=== PATIENT | male | born 1945 | race Caucasian/White ===

== ENCOUNTER 2021-08-28 13:12 | Emergency (ER) | payer MEDICARE, OTHER ==
[2021-08-28 13:51] VITALS: RESP 18; TEMP 100.5
[2021-08-28] MEDS ORDERED: ACETAMINOPHEN TAB 500 MG TAB PO STA ×2 (13:58→15:16)
--- NOTE | 2021-08-28 14:12 | ED ---
General Adult HPI - General Chief complaint: Shortness of Breath Stated complaint: Weak/cough Time Seen by Provider: 08/28/21 13:58 Source: patient, RN notes reviewed Mode of arrival: wheelchair Limitations: no limitations - History of Present Illness Initial comments: 76-year-old male presents emergency Department with chief complaint of COVID-19. Patient states she just is suppositories at symptoms last 5 days. He has mild fever cough congestion. No chest pain or shortness of breath patient states she's not been properly vaccinated. Patient states that he does do it at home dialysis. Patient states he has no complaints of this. He states he is only here for monoclonal antibodies. - Related Data Allergies Allergy/AdvReac Type Severity Reaction Status Date / Time citric acid Allergy Rash/Hives Verified 08/28/21 13:47 Review of Systems ROS Statement: Those systems with pertinent positive or pertinent negative responses have been documented in the HPI. ROS Other: All systems not noted in ROS Statement are negative. Past Medical History Past Medical History: Heart Failure, Diabetes Mellitus, Dialysis, Hypertension, Renal Disease History of Any Multi-Drug Resistant Organisms: None Reported Past Surgical History: Coronary Bypass/CABG, Heart Catheterization Past Psychological History: No Psychological Hx Reported Smoking Status: Never smoker Past Alcohol Use History: None Reported Past Drug Use History: None Reported General Exam Limitations: no limitations General appearance: alert, in no apparent distress Head exam: Present: atraumatic, normocephalic, normal inspection Eye exam: Present: normal appearance, PERRL, EOMI. Absent: scleral icterus, conjunctival injection, periorbital swelling ENT exam: Present: normal exam, normal oropharynx, mucous membranes moist Neck exam: Present: normal inspection. Absent: tenderness, meningismus, lymphadenopathy Respiratory exam: Present: normal lung sounds bilaterally. Absent: respiratory distress, wheezes, rales, rhonchi, stridor Cardiovascular Exam: Present: regular rate, normal rhythm, normal heart sounds. Absent: systolic murmur, diastolic murmur, rubs, gallop, clicks Course Vital Signs 08/28/21 13:48 Temperature 100.5 F H Pulse Rate 70 Respiratory 18 Rate Blood Pressure 160/82 O2 Sat by Pulse 98 Oximetry Medical Decision Making - Medical Decision Making Patient's vitals are stable. Patient will receive monoclonal antibodies. Patient discharged in stable condition return parameters discussed. Disposition Clinical Impression: COVID-19 Disposition: HOME SELF-CARE Condition: Stable Instructions (If sedation given, give patient instructions): Coronavirus Disease 2019 (COVID-19) Additional Instructions: Please return to the Emergency Department if symptoms worsen or any other concerns. Is patient prescribed a controlled substance at d/c from ED?: No Referrals: None,Stated [Primary Care Provider] - 1-2 days Time of Disposition: 14:12
[2021-08-28] MEDS ORDERED: CASIRIVIMAB/IMDEVIMAB (EUA) 1,200 MG in SODIUM CHLORIDE 0.9% 100 ML IVPB ONE (14:30)
[2021-08-28] MEDS ORDERED: SODIUM CHLORIDE 0.9% 50 ML IVPB ONE (15:00)
[2021-08-28 16:25] VITALS: BP 141/81; PULSE 62
== END 2021-08-28 14:20 | disposition home or self-care (01) ==
LOC: EC 13:12
DX: U07.1 COVID-19 (principal); I11.0 Hypertensive heart disease with heart failure; I50.9 Heart failure, unspecified; E11.9 Type 2 diabetes mellitus without complications; Z95.1 Presence of aortocoronary bypass graft
CPT/HCPCS: 99283 ×2; M0243; Q0243

== ENCOUNTER 2021-09-02 19:42 | Inpatient (IN) | payer MEDICARE, OTHER ==
[2021-09-02] MEDS ORDERED: MORPHINE SULFATE 4 MG/ML SYRINGE IV STA (19:50)
[2021-09-02] MEDS ORDERED: PANTOPRAZOLE 40 MG/10 ML VIAL IVP STA (19:50)
--- NOTE | 2021-09-02 19:57 | ED ---
General Adult HPI - General Stated complaint: Abdominal Pain Time Seen by Provider: 09/02/21 19:44 Source: patient, RN notes reviewed Limitations: no limitations - History of Present Illness Initial comments: Patient is a pleasant 76-year-old male presenting to the emergency Department with complaints of abdominal discomfort. Patient is a poor historian. Patient does do peritoneal dialysis. Patient states she does have abdominal discomfort frequently however is unclear why. No nausea vomiting. No constipation or diarrhea. No fevers. Chart review reveals patient was previously in the hospital for COVID-19 and received monoclonal antibodies. - Related Data Home Medications Medication Instructions Recorded Confirmed Ascorbic Acid [Vitamin C] 500 mg PO DAILY 09/02/21 09/02/21 Aspirin EC [Ecotrin Low Dose] 81 mg PO Q72H 09/02/21 09/02/21 Calcium Acetate [Phoslo] 1,334 mg PO TID-W/MEALS 09/02/21 09/02/21 Calcium Acetate [Phoslo] 667 mg PO BID PRN 09/02/21 09/02/21 Carvedilol [Coreg] 25 mg PO BID PRN 09/02/21 09/02/21 Cholecalciferol [Vitamin D3 (25 50 mcg PO DAILY 09/02/21 09/02/21 Mcg = 1000 Iu)] Digestive Enzymes 1 tab PO TID-W/MEALS 09/02/21 09/02/21 Insulin Glargine,Hum.rec.anlog 6 - 12 unit SQ DAILY PRN 09/02/21 09/02/21 [Lantus Solostar Pen] Multivitamin-Multi Mineral Liquid 1 dose PO DAILY 09/02/21 09/02/21 [place]-3 Fatty Acids/Fish Oil [Fish 1 cap PO DAILY 09/02/21 09/02/21 Oil 1,000 mg Softgel] Ubidecarenone [Co Q-10] 100 mg PO DAILY 09/02/21 09/02/21 Allergies Allergy/AdvReac Type Severity Reaction Status Date / Time citric acid Allergy Rash/Hives Verified 09/02/21 21:39 Review of Systems ROS Statement: Those systems with pertinent positive or pertinent negative responses have been documented in the HPI. ROS Other: All systems not noted in ROS Statement are negative. Constitutional: Denies: fever Eyes: Denies: eye pain ENT: Denies: ear pain Respiratory: Denies: cough Cardiovascular: Denies: as per HPI Endocrine: Reports: fatigue Gastrointestinal: Reports: abdominal pain. Denies: nausea, vomiting, diarrhea, constipation Genitourinary: Denies: dysuria Musculoskeletal: Denies: back pain Skin: Denies: rash Neurological: Denies: weakness Past Medical History Past Medical History: Heart Failure, Diabetes Mellitus, Dialysis, Hypertension, Renal Disease History of Any Multi-Drug Resistant Organisms: None Reported Past Surgical History: Coronary Bypass/CABG, Heart Catheterization Past Psychological History: No Psychological Hx Reported Smoking Status: Never smoker Past Alcohol Use History: None Reported Past Drug Use History: None Reported General Exam General appearance: alert Head exam: Present: normocephalic Eye exam: Present: normal appearance Neck exam: Present: normal inspection Respiratory exam: Present: normal lung sounds bilaterally Cardiovascular Exam: Present: regular rate, normal rhythm Expanded Peripheral pulses: 2+: Dorsalis Pedis (R), Dorsalis Pedis (L) GI/Abdominal exam: Present: soft, tenderness (Mild diffuse tenderness). Absent: distended Extremities exam: Present: normal inspection. Absent: pedal edema, calf tenderness Back exam: Present: normal inspection Neurological exam: Present: alert Psychiatric exam: Present: flat affect Skin exam: Present: normal color Course Vital Signs 09/02/21 09/02/21 19:49 20:05 Temperature 99.1 F Pulse Rate 88 Respiratory 18 Rate Blood Pressure 245/105 - Reevaluation(s) Reevaluation #1: 09/02/21 21:33 Further history taken from the family states patient has been complaining of abdominal problems only for the past 2 and half days however has been vomiting with decreased oral intake. Patient normally has peritoneal dialysis 4 times daily and has only done it twice today. Patient was confused on how to work at earlier. Sodium returned critically low at 104. Nephrology and admitting physicians have been paged. 09/02/21 21:38 Case discussed with practitioner Giulia Wright, who will admit covered with Dr. Mancilla. Dr. Park has also been paged. 09/02/21 21:48 Case was discussed with Dr. Park who does recommend 3% sodium for 10 hours for a total of 300 mL. 09/02/21 21:56 Case was also discussed with Dr. Haro who agrees with plan and will consult. Medical Decision Making - Lab Data Result diagrams: 09/02/21 20:48 09/02/21 20:48 Lab Results 09/02/21 09/02/21 09/02/21 Range/Units 20:48 20:48 20:48 WBC 6.9 (3.8-10.6) k/uL RBC 3.93 L (4.30-5.90) m/uL Hgb 12.3 L (13.0-17.5) gm/dL Hct 32.7 L (39.0-53.0) % MCV 83.4 (80.0-100.0) fL MCH 31.4 (25.0-35.0) pg MCHC 37.7 H (31.0-37.0) g/dL RDW 11.6 (11.5-15.5) % Plt Count 240 (150-450) k/uL MPV 8.1 Neutrophils % 91 % Lymphocytes % 5 % Monocytes % 4 % Eosinophils % 0 % Basophils % 0 % Neutrophils # 6.2 (1.3-7.7) k/uL Lymphocytes # 0.3 L (1.0-4.8) k/uL Monocytes # 0.3 (0-1.0) k/uL Eosinophils # 0.0 (0-0.7) k/uL Basophils # 0.0 (0-0.2) k/uL Hyperchromasia Marked PT 9.9 (9.0-12.0) sec INR 0.9 (<1.2) APTT 23.3 (22.0-30.0) sec Sodium 104 L* (137-145) mmol/L Potassium 4.3 (3.5-5.1) mmol/L Chloride 68 L* (98-107) mmol/L Carbon Dioxide 25 (22-30) mmol/L Anion Gap 11 mmol/L BUN 75 H (9-20) mg/dL Creatinine 7.24 H* (0.66-1.25) mg/dL Est GFR (CKD-EPI)AfAm 8 (>60 ml/min/1.73 sqM) Est GFR (CKD-EPI)NonAf 7 (>60 ml/min/1.73 sqM) Glucose 156 H (74-99) mg/dL Plasma Lactic Acid Bill (0.7-2.0) mmol/L Calcium 6.9 L (8.4-10.2) mg/dL Total Bilirubin 0.9 (0.2-1.3) mg/dL AST 54 (17-59) U/L ALT 25 (4-49) U/L Alkaline Phosphatase 71 (38-126) U/L Lactate Dehydrogenase 640 H (313-618) U/L Total Protein 5.4 L (6.3-8.2) g/dL Albumin 2.9 L (3.5-5.0) g/dL Amylase 54 (30-110) U/L Lipase 85 (23-300) U/L 09/02/21 Range/Units 20:48 WBC (3.8-10.6) k/uL RBC (4.30-5.90) m/uL Hgb (13.0-17.5) gm/dL Hct (39.0-53.0) % MCV (80.0-100.0) fL MCH (25.0-35.0) pg MCHC (31.0-37.0) g/dL RDW (11.5-15.5) % Plt Count (150-450) k/uL MPV Neutrophils % % Lymphocytes % % Monocytes % % Eosinophils % % Basophils % % Neutrophils # (1.3-7.7) k/uL Lymphocytes # (1.0-4.8) k/uL Monocytes # (0-1.0) k/uL Eosinophils # (0-0.7) k/uL Basophils # (0-0.2) k/uL Hyperchromasia PT (9.0-12.0) sec INR (<1.2) APTT (22.0-30.0) sec Sodium (137-145) mmol/L Potassium (3.5-5.1) mmol/L Chloride (98-107) mmol/L Carbon Dioxide (22-30) mmol/L Anion Gap mmol/L BUN (9-20) mg/dL Creatinine (0.66-1.25) mg/dL Est GFR (CKD-EPI)AfAm (>60 ml/min/1.73 sqM) Est GFR (CKD-EPI)NonAf (>60 ml/min/1.73 sqM) Glucose (74-99) mg/dL Plasma Lactic Acid Bill 1.0 (0.7-2.0) mmol/L Calcium (8.4-10.2) mg/dL Total Bilirubin (0.2-1.3) mg/dL AST (17-59) U/L ALT (4-49) U/L Alkaline Phosphatase (38-126) U/L Lactate Dehydrogenase (313-618) U/L Total Protein (6.3-8.2) g/dL Albumin (3.5-5.0) g/dL Amylase (30-110) U/L Lipase (23-300) U/L Critical Care Time Critical Care Time: Yes Total Critical Care Time: 33 Disposition Clinical Impression: Abdominal pain, Hyponatremia, ESRD on peritoneal dialysis Disposition: ADMITTED IP TO THIS [facility] Condition: Serious Is patient prescribed a controlled substance at d/c from ED?: No Referrals: None,Stated [Primary Care Provider] - 1-2 days Decision Time: 21:35
[2021-09-02 21:03] LABS: Basophils % (A) 0 %; Eosinophils % (A) 0 %; HCT 32.7 % (39.0-53.0); HGB 12.3 gm/dL (13.0-17.5); Hyperchromasia Marked; Lymphocytes # (A) 0.3 k/uL (1.0-4.8); Lymphocytes % (A) 5 %; MCH 31.4 pg (25.0-35.0); MCHC 37.7 g/dL (31.0-37.0); MCV 83.4 fL (80.0-100.0); Mean Platelet Volume 8.1; Monocytes # (A) 0.3 k/uL (0-1.0); Monocytes % (A) 4 %; Neutrophils # (A) 6.2 k/uL (1.3-7.7); Neutrophils % (A) 91 %; Platelet Count 240 k/uL (150-450); RBC 3.93 m/uL (4.30-5.90); RDW 11.6 % (11.5-15.5); WBC 6.9 k/uL (3.8-10.6)
[2021-09-02 21:12] LABS: INR 0.9 (<1.2); Partial Thromboplastin Time 23.3 sec (22.0-30.0); Prothrombin Time 9.9 sec (9.0-12.0)
[2021-09-02 21:23] LABS: Albumin 2.9 g/dL (3.5-5.0); Calcium 6.9 mg/dL (8.4-10.2); Potassium 4.3 mmol/L (3.5-5.1); Total Bilirubin 0.9 mg/dL (0.2-1.3); Total Protein 5.4 g/dL (6.3-8.2)
[2021-09-02] MEDS ORDERED: NALOXONE 0.4 MG/ML 1 ML VIAL IV PRN (21:38)
[2021-09-02] MEDS ORDERED: SODIUM CHLORIDE 3% IV SCH (22:00)
[2021-09-02] MEDS ORDERED: [UNRECOGNIZED DRUG - OTHER] IV SCH (22:00)
[2021-09-02] MEDS ORDERED: LORazepam 2 MG/ML INJ IV STA (23:20)
[2021-09-03 00:20] LABS: Appearance,Urine Clear (Clear); Bacteria,Urine Rare /hpf; Bilirubin,Urine Negative (Negative); Blood,Urine Trace (Negative); Color,Urine Yellow; Glucose,Urine (UA) 2+ (Negative); Ketones,Urine Negative (Negative); Leukocyte Esterase,Urine Negative (Negative); Nitrite,Urine Negative (Negative); PH, Urine 6.5 (5.0-8.0); Protein,Urine 2+ (Negative); RBC,Urine 1 /hpf (0-5); Specific Gravity,Urine 1.013 (1.001-1.035); Urobilinogen,Urine <2.0 mg/dL (<2.0); WBC,Urine 1 /hpf (0-5)
[2021-09-03 00:54] LABS: Glucose,Whole Blood 171 mg/dL (75-99)
--- NOTE | 2021-09-03 01:02 | CT ---
EXAMINATION TYPE: CT abdomen pelvis wo con DATE OF EXAM: 09/03/2021 COMPARISON: None HISTORY: ams CT DLP: 714 mGycm Automated exposure control for dose reduction was used. Images obtained from the diaphragm to the floor the pelvis without contrast. There are F there is zahraa e patchy nodular and interstitial infiltrate at the lung bases. There is no significant pleural fluid . Heart is top normal in size. There is no pericardial effusion. Liver is intact. Gallbladder is intact. Spleen is intact. Stomach has normal size. The bile ducts are not dilated. There is mild abdominal fluid in the paracolic gutter on the right side and around the liver. There is no adrenal mass. Kidneys have normal size. There is extensive vascular calcification. There is 1 cm calculus at the right renal pelvis. There is no hydronephrosis. The ureters are not dilated. Abdominal aorta is atheromatous. There is peritoneal catheter in the pelvis apparently from dialysis. Appendix is posterior and appears normal. There is no evidence of a bowel obstruction. There is no mesenteric edema. There are multiple sigmoid diverticula. I see no sign of diverticulitis. The lumbar vertebra have normal alignment. Posterior elements are intact. There is minor spurring in the lumbar spine. IMPRESSION: Sigmoid diverticulosis without diverticulitis. Atherosclerotic vascular disease. Nonobstructing large calculus right renal pelvis. Patchy nodular and interstitial infiltrate in the posterior lung bases.
[2021-09-03] MEDS: hydrALAZINE HCL 20 MG/ML 1 ML VIAL IVP PRN ×6 (01:49→23:22)
[2021-09-03] MEDS: HYDROmorphone 1 MG/ML 1 ML SYRINGE IVP PRN ×4 (01:49→15:55)
[2021-09-03] MEDS: INSULIN ASPART (NovoLOG) 100 UNIT/ML VIAL SQ SCH ×4 (02:00→19:03)
[2021-09-03 05:15] LABS: Basophils % (A) 0 %; Eosinophils % (A) 0 %; HCT 32.6 % (39.0-53.0); HGB 12.3 gm/dL (13.0-17.5); Hyperchromasia Marked; Lymphocytes # (A) 0.4 k/uL (1.0-4.8); Lymphocytes % (A) 3 %; MCH 31.7 pg (25.0-35.0); MCHC 37.8 g/dL (31.0-37.0); MCV 83.9 fL (80.0-100.0); Mean Platelet Volume 7.9; Monocytes # (A) 0.6 k/uL (0-1.0); Monocytes % (A) 4 %; Neutrophils # (A) 12.2 k/uL (1.3-7.7); Neutrophils % (A) 92 %; Platelet Count 257 k/uL (150-450); RBC 3.89 m/uL (4.30-5.90); RDW 11.6 % (11.5-15.5); WBC 13.3 k/uL (3.8-10.6)
[2021-09-03 05:26] LABS: Albumin 2.7 g/dL (3.5-5.0); Calcium 6.9 mg/dL (8.4-10.2); Magnesium 1.8 mg/dL (1.6-2.3); Phosphorus 6.4 mg/dL (2.5-4.5); Potassium 3.9 mmol/L (3.5-5.1); Total Bilirubin 0.9 mg/dL (0.2-1.3); Total Protein 5.4 g/dL (6.3-8.2)
[2021-09-03 06:20] LABS: Glucose,Whole Blood 73 mg/dL (75-99)
[2021-09-03] MEDS ORDERED: CALCIUM ACETATE 667 MG TAB PO PRN (07:43)
[2021-09-03] MEDS ORDERED: FAMOTIDINE 20 MG/2 ML VIAL IV SCH (09:00)
[2021-09-03] MEDS: PANTOPRAZOLE 40 MG/10 ML VIAL IV SCH (09:00)
[2021-09-03] MEDS: CHOLECALCIFEROL 25 MCG (1000 IU) TABLET PO SCH ×2 (09:05→09:14)
[2021-09-03] MEDS: HEPARIN SODIUM,PORCINE/PF 5,000 UNIT/0.5 ML SYRINGE SQ SCH ×2 (09:06→20:21)
[2021-09-03] MEDS: ASCORBIC ACID 500 MG TAB PO SCH ×2 (09:06→09:14)
--- NOTE | 2021-09-03 11:37 | P.HPIM ---
History of Present Illness This is a pleasant 76 years old male with past medical history of Heart Failure, Diabetes Mellitus, renal disease on peritoneal Dialysis, Hypertension, history of Coronary Bypass/CABG, Patient presents because of abdominal pain per emergency room Note however patient found to have be confused with hypernatremia His sodium on admission was 104, earlier this morning was 108 and ended in weight respectively. patient currently remains in the ICU confused, does not follow commands, he is also on restraints. He denies any chest pain or abdominal pain. His abdomen looks soft and there is dialysis to running out of his left lower quadrant of abdomen, not connected to anything. His abdomen is soft with no tenderness or guarding. No rebound tenderness he moves all extremities equally. Patient is poor historian On admission he is afebrile, his breathing rate around 11, blood pressure 174/96 and he is saturating 95% on room air. WBC 6.9 and 13.3. Rest of CBC is unremarkable. Sodium on admission was low at 104, currently is 108. Unknown baseline. Creatinine elevated 7.3. Troponin is elevated at 0.05 Urine analysis is showing 2+ protein, 2+ glucose. [place] v. is detected CT of the abdomen and pelvis with no contrast: Sigmoid diverticulosis without diverticulitis. Atherosclerotic vascular disease. None obstructing large calculus right renal pelvis In the emergency room patient received Protonix, pain medication Nephrology and ice team were consulted already Review of Systems n/a patient confused and could not give information Past Medical History Past Medical History: Heart Failure, Diabetes Mellitus, Dialysis, Hypertension, Renal Disease History of Any Multi-Drug Resistant Organisms: None Reported Past Surgical History: Coronary Bypass/CABG, Heart Catheterization Past Psychological History: No Psychological Hx Reported Smoking Status: Never smoker Past Alcohol Use History: None Reported Past Drug Use History: None Reported Medications and Allergies Home Medications Medication Instructions Recorded Confirmed Type Ascorbic Acid [Vitamin C] 500 mg PO DAILY 09/02/21 09/02/21 History Aspirin EC [Ecotrin Low Dose] 81 mg PO Q72H 09/02/21 09/02/21 History Calcium Acetate [Phoslo] 1,334 mg PO TID-W/MEALS 09/02/21 09/02/21 History Calcium Acetate [Phoslo] 667 mg PO BID PRN 09/02/21 09/02/21 History Carvedilol [Coreg] 25 mg PO BID PRN 09/02/21 09/02/21 History Cholecalciferol [Vitamin D3 (25 50 mcg PO DAILY 09/02/21 09/02/21 History Mcg = 1000 Iu)] Digestive Enzymes 1 tab PO TID-W/MEALS 09/02/21 09/02/21 History Insulin Glargine,Hum.rec.anlog 6 - 12 unit SQ DAILY PRN 09/02/21 09/02/21 History [Lantus Solostar Pen] Multivitamin-Multi Mineral Liquid 1 dose PO DAILY 09/02/21 09/02/21 History [place]-3 Fatty Acids/Fish Oil [Fish 1 cap PO DAILY 09/02/21 09/02/21 History Oil 1,000 mg Softgel] Ubidecarenone [Co Q-10] 100 mg PO DAILY 09/02/21 09/02/21 History Allergies Allergy/AdvReac Type Severity Reaction Status Date / Time citric acid Allergy Rash/Hives Verified 09/02/21 21:39 Physical Exam Vitals: Vital Signs Temp Pulse Resp BP Pulse Ox 09/03/21 05:00 78 11 L 174/96 97 09/03/21 04:00 79 14 163/91 95 09/03/21 03:00 86 19 161/84 93 L 09/03/21 02:00 86 9 L 175/83 96 09/03/21 01:00 90 28 H 201/107 95 09/02/21 23:57 92 18 233/123 95 09/02/21 20:05 245/105 09/02/21 19:49 99.1 F 88 18 Intake and Output 09/02/21 09/03/21 09/03/21 22:59 06:59 14:59 Intake Total 80 Output Total 150 Balance -70 Intake: IV 80 Sodium Chloride 3%( 80 Hypertonic) 300 ml @ 20 mls/hr IV .Q15H [facility] Rx#: [id number] Output: Urine 150 Other: Voiding Method Indwelling Catheter Weight 63.596 kg 71 kg -GENERAL: The patient is alert and oriented x0, not in any acute distress. Well developed, well nourished. HEENT: Pupils are round and equally reacting to light. EOMI. No scleral icterus. No conjunctival pallor. Normocephalic, atraumatic. No pharyngeal erythema. No thyromegaly. CARDIOVASCULAR: S1 and S2 present. No murmurs, rubs, or gallops. PULMONARY: Chest is clear to auscultation, no wheezing or crackles. ABDOMEN: Soft, nontender, nondistended, normoactive bowel sounds. No palpable organomegaly. MUSCULOSKELETAL: No joint swelling or deformity. EXTREMITIES: No cyanosis, clubbing, or pedal edema. NEUROLOGICAL: Gross neurological examination did not reveal any focal deficits. SKIN: No rashes. No petechiae Results CBC & Chem 7: 09/03/21 04:30 09/03/21 08:12 Labs: Abnormal Lab Results - Last 24 Hours (Table) 09/02/21 09/02/21 09/02/21 Range/Units 20:48 20:48 20:48 WBC (3.8-10.6) k/uL RBC 3.93 L (4.30-5.90) m/uL Hgb 12.3 L (13.0-17.5) gm/dL Hct 32.7 L (39.0-53.0) % MCHC 37.7 H (31.0-37.0) g/dL Neutrophils # (1.3-7.7) k/uL Lymphocytes # 0.3 L (1.0-4.8) k/uL Sodium 104 L* (137-145) mmol/L Chloride 68 L* (98-107) mmol/L BUN 75 H (9-20) mg/dL Creatinine 7.24 H* (0.66-1.25) mg/dL Glucose 156 H (74-99) mg/dL POC Glucose (mg/dL) (75-99) mg/dL Calcium 6.9 L (8.4-10.2) mg/dL Phosphorus (2.5-4.5) mg/dL Lactate Dehydrogenase 640 H (313-618) U/L Troponin I 0.053 H* (0.000-0.034) ng/mL Total Protein 5.4 L (6.3-8.2) g/dL Albumin 2.9 L (3.5-5.0) g/dL Urine Protein (Negative) Urine Glucose (UA) (Negative) Urine Blood (Negative) Urine Bacteria (None) /hpf Coronavirus (PCR) (Not Detectd) 09/02/21 09/02/21 09/02/21 Range/Units 23:50 23:52 23:56 WBC (3.8-10.6) k/uL RBC (4.30-5.90) m/uL Hgb (13.0-17.5) gm/dL Hct (39.0-53.0) % MCHC (31.0-37.0) g/dL Neutrophils # (1.3-7.7) k/uL Lymphocytes # (1.0-4.8) k/uL Sodium 105 L* (137-145) mmol/L Chloride (98-107) mmol/L BUN (9-20) mg/dL Creatinine (0.66-1.25) mg/dL Glucose (74-99) mg/dL POC Glucose (mg/dL) (75-99) mg/dL Calcium (8.4-10.2) mg/dL Phosphorus (2.5-4.5) mg/dL Lactate Dehydrogenase (313-618) U/L Troponin I (0.000-0.034) ng/mL Total Protein (6.3-8.2) g/dL Albumin (3.5-5.0) g/dL Urine Protein 2+ H (Negative) Urine Glucose (UA) 2+ H (Negative) Urine Blood Trace H (Negative) Urine Bacteria Rare H (None) /hpf Coronavirus (PCR) Detected A (Not Detectd) 09/03/21 09/03/21 09/03/21 Range/Units 00:52 04:30 04:30 WBC 13.3 H (3.8-10.6) k/uL RBC 3.89 L (4.30-5.90) m/uL Hgb 12.3 L (13.0-17.5) gm/dL Hct 32.6 L (39.0-53.0) % MCHC 37.8 H (31.0-37.0) g/dL Neutrophils # 12.2 H (1.3-7.7) k/uL Lymphocytes # 0.4 L (1.0-4.8) k/uL Sodium 108 L* (137-145) mmol/L Chloride 73 L* (98-107) mmol/L BUN 79 H (9-20) mg/dL Creatinine 7.34 H* (0.66-1.25) mg/dL Glucose 68 L (74-99) mg/dL POC Glucose (mg/dL) 171 H (75-99) mg/dL Calcium 6.9 L (8.4-10.2) mg/dL Phosphorus 6.4 H (2.5-4.5) mg/dL Lactate Dehydrogenase (313-618) U/L Troponin I (0.000-0.034) ng/mL Total Protein 5.4 L (6.3-8.2) g/dL Albumin 2.7 L (3.5-5.0) g/dL Urine Protein (Negative) Urine Glucose (UA) (Negative) Urine Blood (Negative) Urine Bacteria (None) /hpf Coronavirus (PCR) (Not Detectd) 09/03/21 Range/Units 06:18 WBC (3.8-10.6) k/uL RBC (4.30-5.90) m/uL Hgb (13.0-17.5) gm/dL Hct (39.0-53.0) % MCHC (31.0-37.0) g/dL Neutrophils # (1.3-7.7) k/uL Lymphocytes # (1.0-4.8) k/uL Sodium (137-145) mmol/L Chloride (98-107) mmol/L BUN (9-20) mg/dL Creatinine (0.66-1.25) mg/dL Glucose (74-99) mg/dL POC Glucose (mg/dL) 73 L (75-99) mg/dL Calcium (8.4-10.2) mg/dL Phosphorus (2.5-4.5) mg/dL Lactate Dehydrogenase (313-618) U/L Troponin I (0.000-0.034) ng/mL Total Protein (6.3-8.2) g/dL Albumin (3.5-5.0) g/dL Urine Protein (Negative) Urine Glucose (UA) (Negative) Urine Blood (Negative) Urine Bacteria (None) /hpf Coronavirus (PCR) (Not Detectd) Assessment and Plan Assessment: Acute severe hyponatremia Covid infection with no hypoxia Diabetes mellitus Chronic heart failure Hypertension Elevated troponin History of coronary artery disease status post CABG History of renal disease on dialysis Right kidney stone Plan: This is a pleasant 76 years old male who presents with hypernatremia Keep monitor sodium closely Continue with peritoneal dialysis. Nephrology team recommendation Critical team consult Check echocardiogram I agree with neurology consult already placed Labs and medication were reviewed.. Continue same treatment. Continue with sy mptomatic treatment. Resume home medication. Monitor lytes and vitals. DVT and GI prophylaxis. Further recommendations depends on the clinical course of the patient DVT prophylaxis: Subcutaneous heparin GI Prophylaxis: Ppi Prognosis is guarded
--- NOTE | 2021-09-03 12:34 | P.CNPUL ---
History of Present Illness Consult date: 09/03/21 Requesting physician: Bruce E Sheet Reason for consult: other (Severe hyponatremia) Chief complaint: Abdominal pain History of present illness: This is a 76-year-old white male with history of multiple medical problems including end-stage renal disease, on peritoneal dialysis, known history of diabetes, congestive heart failure, coronary artery disease and previous CABG, patient presented to the ER yesterday with 1 day history of abdominal pain. Patient was also noted to be quite confused, workup included a CT of the abdomen and pelvis which came back negative. However his labs were quite abnormal, and his sodium was noted to be 104. The patient himself is a very poor historian, could not get any information from the patient seems to be extremely confused. Patient was also noted to have abnormal renal profile with a BUN of 79 creatinine of 7.34, and he had positive PCR for COVID-19 infection. No chest x- ray was done in the ER, hence short the after I evaluated the patient, chest x- ray was ordered. The meantime the patient is on room air, his O2 sats was 92- 97% on room air. Is afebrile, blood pressure is elevated at 149/96. Upon admission and when I was notified about this patient last night, his PCR for COVID-19 was pending. And I recommended starting the patient on slow infusion of 3% saline and slow correction of his hyponatremia. This morning repeat sodium is 108. Nephrology is yet to see the patient today regarding his chronic renal failure/peritoneal dialysis, and regarding his profound and severe hyponatremia. Chest x-ray showed scattered bilateral infiltrates peripherally and at the bases mostly. Clinically, the patient looks euvolemic, no history to suggest nausea vomiting diarrhea. Review of Systems ROS unobtainable: due to mental status Past Medical History Past Medical History: Heart Failure, Diabetes Mellitus, Dialysis, Hypertension, Renal Disease History of Any Multi-Drug Resistant Organisms: None Reported Past Surgical History: Coronary Bypass/CABG, Heart Catheterization Past Psychological History: No Psychological Hx Reported Smoking Status: Never smoker Past Alcohol Use History: None Reported Past Drug Use History: None Reported Medications and Allergies Home Medications Medication Instructions Recorded Confirmed Type Ascorbic Acid [Vitamin C] 500 mg PO DAILY 09/02/21 09/02/21 History Aspirin EC [Ecotrin Low Dose] 81 mg PO Q72H 09/02/21 09/02/21 History Calcium Acetate [Phoslo] 1,334 mg PO TID-W/MEALS 09/02/21 09/02/21 History Calcium Acetate [Phoslo] 667 mg PO BID PRN 09/02/21 09/02/21 History Carvedilol [Coreg] 25 mg PO BID PRN 09/02/21 09/02/21 History Cholecalciferol [Vitamin D3 (25 50 mcg PO DAILY 09/02/21 09/02/21 History Mcg = 1000 Iu)] Digestive Enzymes 1 tab PO TID-W/MEALS 09/02/21 09/02/21 History Insulin Glargine,Hum.rec.anlog 6 - 12 unit SQ DAILY PRN 09/02/21 09/02/21 History [Lantus Solostar Pen] Multivitamin-Multi Mineral Liquid 1 dose PO DAILY 09/02/21 09/02/21 History [place]-3 Fatty Acids/Fish Oil [Fish 1 cap PO DAILY 09/02/21 09/02/21 History Oil 1,000 mg Softgel] Ubidecarenone [Co Q-10] 100 mg PO DAILY 09/02/21 09/02/21 History Allergies Allergy/AdvReac Type Severity Reaction Status Date / Time citric acid Allergy Rash/Hives Verified 09/02/21 21:39 Physical Exam Vitals: Vital Signs Temp Pulse Resp BP Pulse Ox 09/03/21 09:00 79 12 171/88 91 L 09/03/21 08:00 98.2 F 78 12 154/71 94 L 09/03/21 07:00 78 13 148/70 89 L 09/03/21 06:00 78 12 175/154 98 09/03/21 05:00 78 11 L 174/96 97 09/03/21 04:00 79 14 163/91 95 09/03/21 03:00 86 19 161/84 93 L 09/03/21 02:00 86 9 L 175/83 96 09/03/21 01:00 90 28 H 201/107 95 09/02/21 23:57 92 18 233/123 95 09/02/21 20:05 245/105 09/02/21 19:49 99.1 F 88 18 Intake and Output 09/02/21 09/03/21 09/03/21 22:59 06:59 14:59 Intake Total 120 60 Output Total 190 35 Balance -70 25 Intake: IV 120 60 Sodium Chloride 3%( 120 60 Hypertonic) 300 ml @ 20 mls/hr IV .Q15H [facility] Rx#: [id number] Output: Urine 190 35 Other: Voiding Method Indwelling Catheter Indwelling Catheter Weight 63.596 kg 71 kg 71 kg Physical Exam: Revealed 76-year-old white male, confused, on room air, in no distress. HEENT:[Neck is supple.] [No neck masses.] [No thyromegaly.] [No JVD.] Chest: Symmetrical chest expansion, diminished breath sounds at the bases no crackles or rhonchi or wheezes. Cardiac Exam: [Normal S1 and S2, no S3 gallop, no murmur.] Abdomen: [Soft, nontender, no megaly, no rebound, no guarding, normal bowel sounds.] Peritoneal catheter is noted in the mid abdomen. Extremities: No clubbing edema or cyanosis. Neurologic: Patient is confused, does not seem to follow instructions, and he seems quite encephalopathic. Skin: No rashes. Results - Laboratory Findings CBC and BMP: 09/03/21 04:30 09/03/21 08:12 PT/INR, D-dimer PT 9.9 sec (9.0-12.0) 09/02/21 20:48 INR 0.9 (<1.2) 09/02/21 20:48 Abnormal lab findings: Abnormal Labs 09/02/21 09/02/21 09/02/21 20:48 20:48 20:48 WBC RBC 3.93 L Hgb 12.3 L Hct 32.7 L MCHC 37.7 H Neutrophils # Lymphocytes # 0.3 L Sodium 104 L* Chloride 68 L* BUN 75 H Creatinine 7.24 H* Glucose 156 H POC Glucose (mg/dL) Calcium 6.9 L Phosphorus Lactate Dehydrogenase 640 H Troponin I 0.053 H* Total Protein 5.4 L Albumin 2.9 L Urine Protein Urine Glucose (UA) Urine Blood Urine Bacteria Coronavirus (PCR) 09/02/21 09/02/21 09/02/21 23:50 23:52 23:56 WBC RBC Hgb Hct MCHC Neutrophils # Lymphocytes # Sodium 105 L* Chloride BUN Creatinine Glucose POC Glucose (mg/dL) Calcium Phosphorus Lactate Dehydrogenase Troponin I Total Protein Albumin Urine Protein 2+ H Urine Glucose (UA) 2+ H Urine Blood Trace H Urine Bacteria Rare H Coronavirus (PCR) Detected A 09/03/21 09/03/21 09/03/21 00:52 04:30 04:30 WBC 13.3 H RBC 3.89 L Hgb 12.3 L Hct 32.6 L MCHC 37.8 H Neutrophils # 12.2 H Lymphocytes # 0.4 L Sodium 108 L* Chloride 73 L* BUN 79 H Creatinine 7.34 H* Glucose 68 L POC Glucose (mg/dL) 171 H Calcium 6.9 L Phosphorus 6.4 H Lactate Dehydrogenase Troponin I Total Protein 5.4 L Albumin 2.7 L Urine Protein Urine Glucose (UA) Urine Blood Urine Bacteria Coronavirus (PCR) 09/03/21 09/03/21 06:18 08:12 WBC RBC Hgb Hct MCHC Neutrophils # Lymphocytes # Sodium 108 L* Chloride BUN Creatinine Glucose POC Glucose (mg/dL) 73 L Calcium Phosphorus Lactate Dehydrogenase Troponin I Total Protein Albumin Urine Protein Urine Glucose (UA) Urine Blood Urine Bacteria Coronavirus (PCR) - Diagnostic Findings Chest x-ray: image reviewed (As noted in HPI, minimal scattered infiltrates noted bilaterally.) Assessment and Plan Assessment: Impression: Severe hyponatremia, exact etiology is not clear, but seems to be associated wit h his COVID-19 infection/pneumonia and associated with his renal failure and peritoneal dialysis. Could be SIADH related. Acute metabolic encephalopathy secondary to hyponatremia Acute COVID-19 pneumonia but no significant hypoxia noted. Chronic renal failure, on peritoneal dialysis. History of coronary artery disease and previous CABG. Type 2 diabetes. Benign essential hypertension. Recommendation: Continue slow correction of his sodium. COVID-19 cocktail. Patient is not a candidate for remdesivir, not a candidate for baricitinib Nephrology to see on consultation. Neurology to see for his metabolic encephalopathy. We will continue to follow and monitor in the ICU. Prognosis is extremely poor and guarded. Time with Patient: Greater than 30
--- NOTE | 2021-09-03 12:50 | ECHOF ---
Referral Reason:Rule out heart disease MEASUREMENTS -------- HEIGHT: 167.6 cm WEIGHT: 70.8 kg BP: 148/70 RVIDd: 3.7 cm (< 3.3) IVSd: 1.8 cm (0.6 - 1.1) LVIDd: 3.2 cm (3.9 - 5.3) LVPWd: 1.8 cm (0.6 - 1.1) IVSs: 1.9 cm LVIDs: 2.0 cm LVPWs: 2.1 cm LAESV Index (A-L): 34.76 ml/m Ao Diam: 3.5 cm (2.0 - 3.7) AV Cusp: 1.1 cm (1.5 - 2.6) MV E Chris: 0.85 m/s MV DecT: 271 ms MV A Chris: 1.27 m/s MV E/A Ratio: 0.67 AV maxP.13 mmHg AV meanP.90 mmHg AR PHT: 548 ms RAP: 5.00 mmHg RVSP: 34.19 mmHg FINDINGS -------- Sinus rhythm. This was a technically adequate study. The left ventricular size is normal. There is severe concentric left ventricular hypertrophy. Ove rall left ventricular systolic function is normal with, an EF between 55 - 60 %. The right ventricle is mildly enlarged. LA is moderately dilated 34-39 ml/m2 The right atrial size is normal. Interatrial and interventricular septum intact. There is moderate to severe aortic valve sclerosis. Trace to mild aortic regurgitation. There is moderate aortic stenosis present. The maximum velocity across the aortic valve is 2.83m/s. Peak/m david gradient across the Aortic Valve is 32.13mmHg / 17.90mmHg. Moderate mitral annular calcification present. Mild mitral regurgitation is present. Mild mitral stenosis , with a MVA of 2.8cm (by PHT) Mild tricuspid regurgitation present. There is no evidence of pulmonary hypertension. The right v entricular systolic pressure, as measured by Doppler, is 34.19mmHg. There is no pulmonic regurgitation present. The aortic root size is normal. IVC Not well visulized. There is no pericardial effusion. CONCLUSIONS -------- 1. The left ventricular size is normal. 2. There is severe concentric left ventricular hypertrophy. 3. Overall left ventricular systolic function is normal with, an EF between 55 - 60 %. 4. The right ventricle is mildly enlarged. 5. LA is moderately dilated 34-39 ml/m2 6. There is moderate to severe aortic valve sclerosis. 7. Trace to mild aortic regurgitation. 8. There is moderate aortic stenosis present. 9. The maximum velocity across the aortic valve is 2.83m/s. 10. Peak/mean gradient across the Aortic Valve is 32.13mmHg / 17.90mmHg. 11. Moderate mitral annular calcification present. 12. Mild mitral regurgitation is present. 13. Mild mitral stenosis. 14. , with a MVA of 2.8cm (by PHT) 15. Mild tricuspid regurgitation present. LARD BLEACHER: Flory Mcconnell RDCS
--- NOTE | 2021-09-03 12:52 | XR ---
EXAMINATION TYPE: XR chest 1V DATE OF EXAM: 09/03/2021 CLINICAL HISTORY: COVID. TECHNIQUE: Single AP portable frontal upright view of the chest is obtained. COMPARISON: None FINDINGS: Overlying sternal wires and mediastinal clips. Mild cardiomegaly with atherosclerotic thora cic aorta. Low lung volumes with bilateral multifocal opacities greatest in the lower lungs and perip chayo left lung with some right upper lung involvement. No pleural effusion or pneumothorax. The osse ous structures are intact. IMPRESSION: Low lung volumes and mild cardiomegaly with bilateral multifocal opacities consistent wit h known covid-19 infection.
[2021-09-03] MEDS: DIALYSIS (PERIT 1.5%) 2,000 ML 30 G/2,000 ML BAG INTRAPERIT SCH ×3 (12:56→23:56)
[2021-09-03 13:13] LABS: Glucose,Whole Blood 85 mg/dL (75-99)
[2021-09-03] MEDS: CALCIUM ACETATE 667 MG TAB PO SCH ×2 (13:39→18:03)
[2021-09-03] MEDS: DEXMEDETOMIDINE/0.9% NACL(PMX) 400 MCG in EMPTY BAG 1 BAG IV SCH ×2 (13:39→21:27)
[2021-09-03] MEDS: DEXAMETHASONE SOD PHOSPHATE 10 MG/ML 1 ML VIAL IVP SCH (13:49)
[2021-09-03] MEDS: SODIUM CHLORIDE 3%(HYPERTONIC) 500 ML IV SCH (16:40)
--- NOTE | 2021-09-03 18:19 | P.CNNES ---
History of Present Illness Consult date: 09/03/21 Requesting physician: Katie Park Reason for Consult: Altered mental status History of Present Illness: Patient is a 76-year-old male came to the hospital yesterday by ambulance at 7:42 PM. Patient was seen in the ICU bed #253. Patient has significant altered mental status, therefore not able to provide any history. As per EMS flow sheet, when they arrived, found patient sitting on the couch, complaining of abdominal pain. Family was present. Family has mentioned that he has not been acting right. Patient's baseline mental status is alert and oriented 4. Patient was able to answer some questions appropriately. He was oriented 2. The patient is 4 days post quarantine for Covid 19. Family mentioned that he has been vomiting and complaining of abdominal pain for the past 3 days. He has not been able to drink or eat much. Patient is a dialysis patient, receives dialysis 4 times a day but has only received 2 times. The patient denies any chest pain or shortness of breath. He was benching "I just do not feel good". Patient's vitals at the scene was blood pressure 222/147, pulse rate 90, respir ations 16 saturation 99%. Blood sugar 171. Vital signs on arrival blood pressure 145/105 which came down to 233/123 and then 201/107. Patient's blood test shows normal WBC, hemoglobin 12.3, platelet 240. PT/PTT normal, sodium 104, potassium 4.3, BUN 75, creatinine 7.24. Hepatic panel is normal. UA negative. [place] virus PCR positive. CT of the abdomen and pelvis showed sigmoid diverticulosis without diverticulitis. Atherosclerotic vascular disease. Non-obstructing large calculus right renal pelvis. Patchy nodular and interstitial infiltrate in the posterior lung bases. 2-D echo revealed normal left ventricular size. Severe concentric LVH. EF is between 55-60%. Left atrium is moderately dilated. Moderate to severe aortic valve sclerosis. Moderate aortic stenosis and trace to mild aortic regurgitation. Mild mitral stenosis. Chest x-ray showed low lung volumes and mild cardiomegaly with bilateral multifocal opacities consistent with known Covid-19 infection. Per nursing report, no seizures have been reported. He was diagnosed with Covid-19 on 08/13/2021. He gets peritoneal dialysis. He recently came to the ER and was given monoclonal antibodies for coronavirus. Patient has received Dilaudid 2 doses recently, as he has been thrashing and very restless otherwise. But now he is sedated from medication. Review of Systems ROS unobtainable: due to mental status Past Medical History Past Medical History: Heart Failure, Diabetes Mellitus, Dialysis, Hypertension, Renal Disease History of Any Multi-Drug Resistant Organisms: None Reported Past Surgical History: Coronary Bypass/CABG, Heart Catheterization Past Psychological History: No Psychological Hx Reported Smoking Status: Never smoker Past Alcohol Use History: None Reported Past Drug Use History: None Reported Medications and Allergies Home Medications Medication Instructions Recorded Confirmed Type Ascorbic Acid [Vitamin C] 500 mg PO DAILY 09/02/21 09/02/21 History Aspirin EC [Ecotrin Low Dose] 81 mg PO Q72H 09/02/21 09/02/21 History Calcium Acetate [Phoslo] 1,334 mg PO TID-W/MEALS 09/02/21 09/02/21 History Calcium Acetate [Phoslo] 667 mg PO BID PRN 09/02/21 09/02/21 History Carvedilol [Coreg] 25 mg PO BID PRN 09/02/21 09/02/21 History Cholecalciferol [Vitamin D3 (25 50 mcg PO DAILY 09/02/21 09/02/21 History Mcg = 1000 Iu)] Digestive Enzymes 1 tab PO TID-W/MEALS 09/02/21 09/02/21 History Insulin Glargine,Hum.rec.anlog 6 - 12 unit SQ DAILY PRN 09/02/21 09/02/21 History [Lantus Solostar Pen] Multivitamin-Multi Mineral Liquid 1 dose PO DAILY 09/02/21 09/02/21 History [place]-3 Fatty Acids/Fish Oil [Fish 1 cap PO DAILY 09/02/21 09/02/21 History Oil 1,000 mg Softgel] Ubidecarenone [Co Q-10] 100 mg PO DAILY 09/02/21 09/02/21 History Allergies Allergy/AdvReac Type Severity Reaction Status Date / Time citric acid Allergy Rash/Hives Verified 09/02/21 21:39 Physical Examination - Vital Signs Vital Signs: Vital Signs Temp Pulse Resp BP Pulse Ox 09/03/21 15:00 84 18 133/79 94 L 09/03/21 14:00 80 12 180/84 95 09/03/21 13:29 97.8 F 70 18 180/84 91 L 09/03/21 13:00 77 13 183/98 93 L 09/03/21 12:00 98.2 F 78 13 170/80 92 L 09/03/21 11:00 77 13 149/96 92 L 09/03/21 10:00 80 20 187/96 97 09/03/21 09:00 79 12 171/88 91 L 09/03/21 08:00 98.2 F 78 12 154/71 94 L 09/03/21 07:00 78 13 148/70 89 L 09/03/21 06:00 78 12 175/154 98 09/03/21 05:00 78 11 L 174/96 97 09/03/21 04:00 79 14 163/91 95 09/03/21 03:00 86 19 161/84 93 L 09/03/21 02:00 86 9 L 175/83 96 09/03/21 01:00 90 28 H 201/107 95 09/02/21 23:57 92 18 233/123 95 09/02/21 20:05 245/105 09/02/21 19:49 99.1 F 88 18 Intake and Output 09/03/21 09/03/21 09/03/21 06:59 14:59 22:59 Intake Total 120 165 25 Output Total 190 85 25 Balance -70 80 0 Intake: IV 120 140 25 Sodium Chloride 3%( 120 140 25 Hypertonic) 300 ml @ 20 mls/hr IV .Q15H [facility] Rx#: [id number] Intake, IV Titration 25 Amount Sodium Chloride 3%( 25 Hypertonic) 500 ml @ 25 mls/hr IV .Q20H [facility] Rx#: [id number] Output: Urine 190 85 25 Other: Voiding Method Indwelling Catheter Indwelling Catheter Weight 71 kg 71 kg Patient is an elderly male, who is obviously encephalopathic. He is somewhat restless. Patient does not follow much commands. Patient is alert awake. Speech and language functions cannot be assessed. Attention, concentration and fund of knowledge is severely limited due to encephalopathy. On cranial examination, pupils are round and reacting to light, visual bland cannot be tested, extraocular muscles are intact with the gaze on either side. Face is symmetric. Lower cranial nerves cannot be tested. On muscle strength testing, patient did not cooperate with examination. He moves arms and legs equally. He moves legs better than the arms. Deep tendon reflexes are diminished and plantars are possibly upgoing. Sensory cerebellar functions and gait cannot be tested. On general examination, there is no carotid bruit or murmur, S1-S2 audible. Abdomen is soft nontender. Chest is clear. Peripheral pulses are present. No edema. Results - Laboratory Findings CBC and BMP: 09/03/21 04:30 09/03/21 15:55 Abnormal Lab Findings: Abnormal Labs 09/02/21 09/02/21 09/02/21 20:48 20:48 20:48 WBC RBC 3.93 L Hgb 12.3 L Hct 32.7 L MCHC 37.7 H Neutrophils # Lymphocytes # 0.3 L Sodium 104 L* Chloride 68 L* BUN 75 H Creatinine 7.24 H* Glucose 156 H POC Glucose (mg/dL) Calcium 6.9 L Phosphorus Lactate Dehydrogenase 640 H Troponin I 0.053 H* Total Protein 5.4 L Albumin 2.9 L Urine Protein Urine Glucose (UA) Urine Blood Urine Bacteria Coronavirus (PCR) 09/02/21 09/02/21 09/02/21 23:50 23:52 23:56 WBC RBC Hgb Hct MCHC Neutrophils # Lymphocytes # Sodium 105 L* Chloride BUN Creatinine Glucose POC Glucose (mg/dL) Calcium Phosphorus Lactate Dehydrogenase Troponin I Total Protein Albumin Urine Protein 2+ H Urine Glucose (UA) 2+ H Urine Blood Trace H Urine Bacteria Rare H Coronavirus (PCR) Detected A 09/03/21 09/03/21 09/03/21 00:52 04:30 04:30 WBC 13.3 H RBC 3.89 L Hgb 12.3 L Hct 32.6 L MCHC 37.8 H Neutrophils # 12.2 H Lymphocytes # 0.4 L Sodium 108 L* Chloride 73 L* BUN 79 H Creatinine 7.34 H* Glucose 68 L POC Glucose (mg/dL) 171 H Calcium 6.9 L Phosphorus 6.4 H Lactate Dehydrogenase Troponin I Total Protein 5.4 L Albumin 2.7 L Urine Protein Urine Glucose (UA) Urine Blood Urine Bacteria Coronavirus (PCR) 09/03/21 09/03/21 09/03/21 06:18 08:12 12:36 WBC RBC Hgb Hct MCHC Neutrophils # Lymphocytes # Sodium 108 L* 108 L* Chloride BUN Creatinine Glucose POC Glucose (mg/dL) 73 L Calcium Phosphorus Lactate Dehydrogenase Troponin I Total Protein Albumin Urine Protein Urine Glucose (UA) Urine Blood Urine Bacteria Coronavirus (PCR) Assessment and Plan Assessment: * altered mental status, likely due to toxic metabolic encephalopathy. Reasons multifactorial as below. * Severe hyponatremia * Covid-19 related pneumonia * Renal failure, on peritoneal dialysis * Accelerated hypertension, some component of hypertensive encephalopathy. Blood pressure on arrival was 245/105. * Hypertension * Diabetes * Coronary artery disease Plan: * Patient's altered mental status is likely due to hyponatremia. However with his recent accelerated hypertension, and recent Covid infection, need to rule out structural abnormality/CVA. We will check CT head, rule out any central cause/CVA. * EEG to rule out any epileptiform activity from hyponatremia. No obvious seizures have been observed. * Medical management as per IM, ICU. * Neurology will follow. Thank you for the consult.
--- NOTE | 2021-09-03 18:22 | CONS ---
CONSULTATION REASON FOR CONSULT: End-stage renal disease. HISTORY OF PRESENT ILLNESS: The patient is a 76-year-old male with end-stage renal disease, maintained on peritoneal dialysis. He was admitted to the hospital with a history of increased weakness, mental status changes. He also had abdominal pain. The patient apparently has not been feeling well for about a week. He did not come to his appointment at the dialysis unit last week and he was encouraged to go to the hospital and get tested. However, patient did not initially go. He did go to the ER on August 28 and apparently he did get monoclonal antibodies and had tested positive for Covid 19. Subsequently, patient's condition did not improve and therefore he came into the hospital yesterday. His sodium was noted to be 104 mEq/L and patient has been started on 3% saline drip. His O2 sats have been about 98-94 percent on 2 L nasal cannula. PAST MEDICAL HISTORY: Significant for end-stage renal disease, CKD mineral bone disorder, previous history of hyponatremia, history of hypertension, coronary artery disease, type 2 diabetes. PAST SURGICAL HISTORY: Coronary artery bypass surgery, cardiac catheterization. SOCIAL HISTORY: Negative for smoking, drug abuse or alcohol abuse. MEDICATIONS: Medications prior to admission included aspirin, vitamin C, PhosLo, Coreg vitamin D, Co Q10, multivitamins, insulin. ALLERGIES: INCLUDE CITRIC ACID CAUSES RASH AND HIVES. REVIEW OF SYSTEMS: As per HPI, no obvious diarrhea or GI bleed noted at this time. HEAD LOADER exam shows patient is barely communicating. He responds to painful stimuli but does not communicate much. Blood pressure is 154/71, heart rate 78 per minute. He is afebrile. Examination shows no edema in the lower extremities. Abdomen is soft, nontender. PD catheter is in place in the left mid abdomen. Site is clear. Lungs and heart are not examined. Patient is barely arousable. LAB: Shows he had a sodium of 108, potassium 3.9, BUN 79, serum creatinine 7.3, hemoglobin 12.3 g/dL. Coronavirus PCR positive. ASSESSMENT: 1. End-stage renal disease maintained on peritoneal dialysis. We will resume. 2. Severe hyponatremia, mostly hypovolemic. Currently maintained on 3% saline. Sodium has slowly increased. We will continue with the 3% saline for now. Once he is able to take p.o. tabs, we can add sodium chloride tabs. Blood pressure, however, is on the higher side. Therefore I would avoid use of sodium chloride tablets. The patient does not have much urine output and the urine osmolality will not be accurate given his end-stage renal disease. We will resume the peritoneal dialysis as well for now. Check TSH levels. 3. Coronavirus PCR positive with no significant respiratory symptoms. I do not see a chest x-ray. The patient is currently with good oxygen saturation. He was on room air now, maintained on 2 L nasal cannula. It looks like he did have O2 sats at 89% at one time. 4. CKD mineral bone disorder, maintained on PhosLo. Currently not eating. Phosphorus was 6.4. PLAN: Continue with 3% saline. Resume peritoneal dialysis. Repeat sodium at about noon. Check chest x-ray. Thank you for this consultation. We will continue to follow the patient with you during his hospitalization. MMODL / IJN: [id number] /
[2021-09-03 18:31] LABS: Glucose,Whole Blood 150 mg/dL (75-99)
[2021-09-03 22:33] LABS: Appearance,BF Clear; Color,BF Yellow; Nucleated Cells, Body Fluid 3 /uL
[2021-09-03 22:34] LABS: RBC, Body Fluid 1 /uL
[2021-09-04 00:06] LABS: Glucose,Whole Blood 232 mg/dL (75-99)
[2021-09-04] MEDS: INSULIN ASPART (NovoLOG) 100 UNIT/ML VIAL SQ SCH ×4 (00:08→17:57)
[2021-09-04] MEDS: CLEVIDIPINE BUTYRATE 25 MG in EMPTY BAG 1 BAG IV SCH ×3 (00:23→17:18)
[2021-09-04] MEDS: DEXMEDETOMIDINE/0.9% NACL(PMX) 400 MCG in EMPTY BAG 1 BAG IV SCH ×3 (03:05→18:11)
[2021-09-04 04:53] LABS: African American GFR (CKD) 7 (>60 ml/min/1.73 sqM); Anion Gap 11 mmol/L; Blood Urea Nitrogen 80 mg/dL (9-20); Calcium 7.5 mg/dL (8.4-10.2); Carbon Dioxide 22 mmol/L (22-30); Chloride 81 mmol/L (98-107); Glucose 142 mg/dL (74-99); Non-African American GFR(CKD) 6 (>60 ml/min/1.73 sqM); Potassium 3.7 mmol/L (3.5-5.1)
[2021-09-04 04:59] LABS: Sodium 114 mmol/L (137-145)
[2021-09-04 05:11] LABS: Basophils % (A) 0 %; Eosinophils % (A) 0 %; HCT 38.8 % (39.0-53.0); HGB 14.1 gm/dL (13.0-17.5); Hyperchromasia Moderate; Lymphocytes # (A) 0.2 k/uL (1.0-4.8); Lymphocytes % (A) 2 %; MCH 31.2 pg (25.0-35.0); MCHC 36.5 g/dL (31.0-37.0); MCV 85.6 fL (80.0-100.0); Mean Platelet Volume 7.7; Monocytes # (A) 0.4 k/uL (0-1.0); Monocytes % (A) 4 %; Neutrophils # (A) 9.6 k/uL (1.3-7.7); Neutrophils % (A) 93 %; Platelet Count 230 k/uL (150-450); RBC 4.53 m/uL (4.30-5.90); WBC 10.3 k/uL (3.8-10.6)
[2021-09-04 05:29] LABS: Glucose,Whole Blood 155 mg/dL (75-99)
[2021-09-04] MEDS: DIALYSIS (PERIT 1.5%) 2,000 ML 30 G/2,000 ML BAG INTRAPERIT SCH ×4 (05:49→23:41)
[2021-09-04] MEDS: POTASSIUM CHLORIDE 10 MEQ in WATER FOR INJECTION 1 100ML.BAG IVPB SCH ×2 (06:08→07:03)
[2021-09-04] MEDS: SODIUM CHLORIDE 3%(HYPERTONIC) 500 ML IV SCH ×3 (06:20→20:07)
[2021-09-04] MEDS: CALCIUM ACETATE 667 MG TAB PO SCH ×3 (06:20→12:58)
[2021-09-04 06:21] LABS: LDH, Body Fluid Source Peritoneal Fluid; Total Protein, Body Fluid 463 mg/dL
[2021-09-04 06:33] LABS: Glucose, BF Source Peritoneal Fluid; Glucose, Body Fluid 863 mg/dL
[2021-09-04] MEDS: HYDROmorphone 1 MG/ML 1 ML SYRINGE IVP PRN (06:56)
[2021-09-04] MEDS: DEXAMETHASONE SOD PHOSPHATE 10 MG/ML 1 ML VIAL IVP SCH (08:52)
[2021-09-04] MEDS: PANTOPRAZOLE 40 MG/10 ML VIAL IV SCH (08:53)
[2021-09-04] MEDS: ASCORBIC ACID 500 MG TAB PO SCH (08:53)
[2021-09-04] MEDS: CHOLECALCIFEROL 25 MCG (1000 IU) TABLET PO SCH (08:53)
[2021-09-04] MEDS: HEPARIN SODIUM,PORCINE/PF 5,000 UNIT/0.5 ML SYRINGE SQ SCH ×2 (08:53→20:09)
[2021-09-04 09:03] LABS: Albumin, Fluid Source Peritoneal Fluid
--- NOTE | 2021-09-04 10:38 | P.PN ---
Subjective This is a pleasant 76 years old male with past medical history of Heart Failure, Diabetes Mellitus, renal disease on peritoneal Dialysis, Hypertension, history of Coronary Bypass/CABG, Patient presents because of abdominal pain per emergency room Note however patient found to have be confused with hypernatremia His sodium on admission was 104, earlier this morning was 108 and ended in weight respectively. patient currently remains in the ICU confused, does not follow commands, he is also on restraints. He denies any chest pain or abdominal pain. His abdomen looks soft and there is dialysis to running out of his left lower quadrant of abdomen, not connected to anything. His abdomen is soft with no tenderness or guarding. No rebound tenderness he moves all extremities equally. Patient is poor historian On admission he is afebrile, his breathing rate around 11, blood pressure 174/96 and he is saturating 95% on room air. WBC 6.9 and 13.3. Rest of CBC is unremarkable. Sodium on admission was low at 104, currently is 108. Unknown baseline. Creatinine elevated 7.3. Troponin is elevated at 0.05 Urine analysis is showing 2+ protein, 2+ glucose. Hamilton v. is detected CT of the abdomen and pelvis with no contrast: Sigmoid diverticulosis without diverticulitis. Atherosclerotic vascular disease. None obstructing large calculus right renal pelvis In the emergency room patient received Protonix, pain medication Nephrology and ice team were consulted already 09/04/2021 Patient is confused and sleepy, does not follow command. Sitter at bedside. His metabolic encephalopathy most likely secondary to hypernatremia. Neurologist on the case. EKG and CT of the brain are pending. He is not in respiratory distress and abdomen is soft. Distal on 3% normal saline at 20 ml/h. Also he was started on calviprex her blood pressure was elevated last night 194/85. Sodium today improved 214. Echocardiogram showed ejection fraction of 55-60% with moderate aortic stenosis Patient continued to 3% NS, calviprex DRIP, multiple vitamins and dexamethasone. Also he is on subcutaneous heparin for DVT prophylaxis Review of systems: N/a Active Medications Generic Name Dose Route Start Last Admin Trade Name Freq PRN Reason Stop Dose Admin Ascorbic Acid 500 mg 09/03/21 09:00 09/04/21 08:53 Ascorbic Acid 500 Mg Tab PO Not Given DAILY [facility] Calcium Acetate 667 mg 09/03/21 07:43 Calcium Acetate 667 Mg Tab PO BID PRN WITH SNACKS Calcium Acetate 1,334 mg 09/03/21 12:30 09/04/21 06:20 Calcium Acetate 667 Mg Tab PO Not Given TID-W/MEALS [facility] Cholecalciferol 50 mcg 09/03/21 09:00 09/04/21 08:53 Cholecalciferol 25 Mcg (1000 Iu) Tablet PO Not Given DAILY [facility] Dexamethasone Sodium Phosphate 6 mg 09/03/21 12:45 09/04/21 08:52 Dexamethasone Sod Phosphate 10 Mg/Ml 1 Ml Vial IVP 6 mg DAILY [facility] Administration Heparin Sodium (Porcine) 5,000 unit 09/03/21 09:00 09/04/21 08:53 Heparin Sodium,Porcine/Pf 5,000 Unit/0.5 Ml Syringe SQ 5,000 unit Q12HR [facility] Administration Hydralazine HCl 20 mg 09/03/21 11:09 09/03/21 23:22 Hydralazine Hcl 20 Mg/Ml 1 Ml Vial IVP 20 mg Q3HR PRN Administration Blood Pressure - High Hydromorphone HCl 1 mg 09/03/21 01:28 09/04/21 06:56 Hydromorphone 1 Mg/Ml 1 Ml Syringe IVP 1 mg Q3HR PRN Administration Pain Dexmedetomidine HCl 400 mcg/ 100 mls @ 3.18 mls/hr 09/03/21 01:29 09/04/21 08:30 IV Solution IV 0.9 mcg/kg/hr .Q24H [facility] 14.309 mls/hr Titration Protocol 0.2 MCG/KG/HR Peritoneal Dialysis Solution 30 g in 2,000 mls @ 0 mls/hr 09/03/21 12:00 05:49 Delflex With 1.5% Dextrose (2,000 Ml) INTRAPERIT 2,000 mls/hr Q6HR RAIN Administration Protocol As Directed Sodium Chloride (Hypertonic) 500 mls @ 20 mls/hr 09/03/21 13:45 09/04/21 06:20 Saline 3% (Hypertonic) IV 09/04/21 13:42 20 mls/hr .Q24H [facility]IN Administration Protocol Clevidipine 25 mg/ IV Solution 50 mls @ 2 mls/hr 09/03/21 23:45 09/04/21 10:13 IV 0 mg/hr .Q24H RAIN 0 mls/hr Titration Protocol 1 MG/HR Insulin Aspart 0 unit 09/03/21 01:45 09/04/21 05:47 Insulin Aspart (Novolog) 100 Unit/Ml Vial SQ 1 unit Q6HR RAIN Administration Protocol Naloxone HCl 0.2 mg 09/02/21 21:38 Naloxone 0.4 Mg/Ml 1 Ml Vial IV Q2M PRN Opioid Reversal Pantoprazole Sodium 40 mg 09/03/21 09:00 09/04/21 08:53 Pantoprazole 40 Mg/10 Ml Vial IV 40 mg DAILY RAIN Administration Objective - Vital Signs Vital signs: Vital Signs Temp 35.8 F L 09/04/21 08:00 Pulse 60 09/04/21 09:00 Resp 29 H 09/04/21 09:00 BP 117/66 09/04/21 09:00 Pulse Ox 96 09/04/21 09:00 Intake & Output 09/03/21 09/04/21 09/04/21 18:59 06:59 18:59 Intake Total 275 470.731 277.451 Output Total 140 70 0 Balance 135 400.731 277.451 Weight 71 kg 70.7 kg Intake: IV 250 390 35 0.9 kvo 40 15 Sodium Chloride 3%( 250 350 20 Hypertonic) 300 ml @ 20 mls/hr IV .Q15H [facility] Rx#: [id number] Intake, IV Titration 25 80.731 242.451 Amount Clevidipine Butyrate 25 26.167 24.167 mg In Empty Bag 1 bag @ 1 MG/HR 2 mls/hr IV .Q24H [facility] Rx#:[id number] Dexmedetomidine/0.9% NaCl 54.564 18.284 (Pmx) 400 mcg In Empty Bag 1 bag @ 0.2 MCG/KG/HR 3.18 mls/hr IV .Q24H [facility] Rx#:[id number] Potassium Chloride 10 meq 200 In Water For Injection 1 100ml.bag @ 100 mls/hr IVPB Q1H [facility] Rx#: [id number] Sodium Chloride 3%( 25 Hypertonic) 500 ml @ 20 mls/hr IV .Q24H [facility] Rx#: [id number] Output: Urine 140 70 0 Other: Voiding Method Indwelling Catheter Diaper Diaper CAPD CAPD - Exam -GENERAL: The patient is sleepy, not in any acute distress. Well developed, well nourished. HEENT: Pupils are round and equally reacting to light. EOMI. No scleral icterus. No conjunctival pallor. Normocephalic, atraumatic. No pharyngeal erythema. No thyromegaly. CARDIOVASCULAR: S1 and S2 present. No murmurs, rubs, or gallops. PULMONARY: Chest is clear to auscultation, no wheezing or crackles. -ABDOMEN: Soft, nontender, nondistended, normoactive bowel sounds. No palpable organomegaly. Peritoneal tube from the left lower quadrant, not connected MUSCULOSKELETAL: No joint swelling or deformity. EXTREMITIES: No cyanosis, clubbing, or pedal edema. NEUROLOGICAL: Gross neurological examination did not reveal any focal deficits. SKIN: No rashes. no petechiae. - Labs CBC & Chem 7: 09/04/21 04:04 09/04/21 04:05 Labs: Abnormal Lab Results - Last 24 Hours (Table) 09/03/21 09/03/21 09/03/21 Range/Units 12:36 15:55 18:30 Hct (39.0-53.0) % Neutrophils # (1.3-7.7) k/uL Lymphocytes # (1.0-4.8) k/uL Sodium 108 L* 109 L* (137-145) mmol/L Chloride (98-107) mmol/L BUN (9-20) mg/dL Creatinine (0.66-1.25) mg/dL Glucose (74-99) mg/dL POC Glucose (mg/dL) 150 H (75-99) mg/dL Calcium (8.4-10.2) mg/dL 09/03/21 09/04/21 09/04/21 Range/Units 20:07 00:03 04:04 Hct 38.8 L (39.0-53.0) % Neutrophils # 9.6 H (1.3-7.7) k/uL Lymphocytes # 0.2 L (1.0-4.8) k/uL Sodium 110 L* (137-145) mmol/L Chloride (98-107) mmol/L BUN (9-20) mg/dL Creatinine (0.66-1.25) mg/dL Glucose (74-99) mg/dL POC Glucose (mg/dL) 232 H (75-99) mg/dL Calcium (8.4-10.2) mg/dL 09/04/21 09/04/21 Range/Units 04:05 05:27 Hct (39.0-53.0) % Neutrophils # (1.3-7.7) k/uL Lymphocytes # (1.0-4.8) k/uL Sodium 114 L* (137-145) mmol/L Chloride 81 L (98-107) mmol/L BUN 80 H (9-20) mg/dL Creatinine 7.57 H* (0.66-1.25) mg/dL Glucose 142 H (74-99) mg/dL POC Glucose (mg/dL) 155 H (75-99) mg/dL Calcium 7.5 L (8.4-10.2) mg/dL Microbiology - Last 24 Hours (Table) 09/03/21 13:20 Body Fluid Culture - Preliminary Peritoneal Fluid 09/02/21 20:48 Blood Culture - Preliminary Blood No Growth after 24 hours 09/02/21 20:48 Blood Culture - Preliminary Blood No Growth after 24 hours Assessment and Plan Assessment: severe hyponatremia Altered mental status, most likely metabolic encephalopathy secondary to hyponatremia Covid infection with no hypoxia Diabetes mellitus Chronic heart failure Hypertension Elevated troponin History of coronary artery disease status post CABG History of renal disease on dialysis Right kidney stone Plan: This is a pleasant 76 years old male who presents with hypernatremia Keep monitor sodium closely. Continue with 3% normal saline 1 nephrology team recommendation Continue with peritoneal dialysis. Nephrology team recommendation Critical team consult Neurology on the case. EEG and CT of the brain ordered Labs and medication were reviewed.. Continue same treatment. Continue with symptomatic treatment. Resume home medication. Monitor lytes and vitals. DVT and GI prophylaxis. Further recommendations depends on the clinical course of the patient DVT prophylaxis: Subcutaneous heparin GI Prophylaxis: Ppi Prognosis is guarded
--- NOTE | 2021-09-04 11:33 | PN ---
PROGRESS NOTE Patient is seen for followup for end-stage renal disease and severe hyponatremia. He is currently maintained on a 3% saline drip. Patient's sodium did come up to 114 this morning, and repeat labs later on showed that it is up to 116. Mentation is slightly better than on admission. However, patient still remains confused, needing a sitter. He is tolerating his peritoneal dialysis fairly well. Patient is not examined today. Case is discussed with nursing staff. He is currently sleeping with a sitter beside him. Blood pressure 104/68, heart rate 51 per minute. He is afebrile. There is no edema per nursing staff. Labs show sodium of 116 today. ASSESSMENT: 1. End-stage renal disease, on peritoneal dialysis. Continue with current PD exchanges. 2. COVID-19 positive PCR with chest x-ray showing bilateral multifocal opacities, not requiring oxygen supplementation. 3. Mental status changes associated with severe electrolyte imbalance and hyponatremia with sodium of 104 on initial admission and underlying COVID infection. 4. Volume depletion, maintained on 3% saline currently. 5. Hypertension. Patient was started on Cleviprex drip. Blood pressure is better. The drip is now discontinued. PLAN: Continue with current PD exchanges. I will discontinue the 3% saline later on today. We will check another sodium in 4 hours and continue with 20 mL/hour for now and discontinue it in about 4-5 hours. MMODL / IJN: [id number] /
[2021-09-04 12:09] LABS: Glucose,Whole Blood 155 mg/dL (75-99)
--- NOTE | 2021-09-04 12:18 | P.PN ---
Subjective Progress Note Date: 09/04/21 Principal diagnosis: Severe hyponatremia, and acute metabolic encephalopathy. This is a 76-year-old white male with history of multiple medical problems including end-stage renal disease, on peritoneal dialysis, known history of diabetes, congestive heart failure, coronary artery disease and previous CABG, patient presented to the ER yesterday with 1 day history of abdominal pain. Patient was also noted to be quite confused, workup included a CT of the abdomen and pelvis which came back negative. However his labs were quite abnormal, and his sodium was noted to be 104. The patient himself is a very poor historian, could not get any information from the patient seems to be extremely confused. Patient was also noted to have abnormal renal profile with a BUN of 79 crea tinine of 7.34, and he had positive PCR for COVID-19 infection. No chest x-ray was done in the ER, hence short the after I evaluated the patient, chest x-ray was ordered. The meantime the patient is on room air, his O2 sats was 92-97% on room air. Is afebrile, blood pressure is elevated at 149/96. Upon admission and when I was notified about this patient last night, his PCR for COVID-19 was pending. And I recommended starting the patient on slow infusion of 3% saline and slow correction of his hyponatremia. This morning repeat sodium is 108. Nephrology is yet to see the patient today regarding his chronic renal failure/peritoneal dialysis, and regarding his profound and severe hyponatremia. Chest x-ray showed scattered bilateral infiltrates peripherally and at the bases mostly. Clinically, the patient looks euvolemic, no history to suggest nausea vomiting diarrhea. Patient was reevaluated today on 09/04/2021, patient remains in the ICU, remains on 3% saline for profound hyponatremia, his sodium is correcting slowly. He was seen by nephrology, and the plan is to discontinue 3% later on today. It is running at 20 mL per hour. Patient developed significant hypertension yesterday and agitation, placed on Precedex and he was also placed on clevidipine extra. His blood pressure today seems to be better controlled. However the patient still requires Precedex. Seems to be calm, patient is undergoing peritoneal dialysis. Today I recommended a PICC line and possibly starting the patient on TPN. Nurse tried to put a nasogastric tube in this patient, however he was ex tremely agitated and he kept pulling it out. I believe the best mode of nutrition for this patient at this point would have to be TPN. Sodium today is up to 116, patient presented initially with a sodium of 104. CBC is relatively normal renal profile is abnormal with a BUN of 80 creatinine 7.57, patient is on peritoneal dialysis. Pulmonary-wilburn, patient is on a couple of liters of oxygen, not in distress, although the patient did have positive PCR for COVID-19 infection, and his chest x-ray on admission showed multifocal opacities consistent with COVID-19 pneumonia Objective - Vital Signs Vital signs: Vital Signs Temp 35.8 F L 09/04/21 08:00 Pulse 56 L 09/04/21 11:30 Resp 12 09/04/21 11:30 BP 200/90 09/04/21 11:30 Pulse Ox 97 09/04/21 11:30 Intake & Output 09/03/21 09/04/21 09/04/21 18:59 06:59 18:59 Intake Total 275 470.731 327.278 Output Total 140 70 0 Balance 135 400.731 327.278 Weight 71 kg 70.7 kg Intake: IV 250 390 45 0.9 kvo 40 25 Sodium Chloride 3%( 250 350 20 Hypertonic) 300 ml @ 20 mls/hr IV .Q15H [facility] Rx#: [id number] Intake, IV Titration 25 80.731 282.278 Amount Clevidipine Butyrate 25 26.167 24.167 mg In Empty Bag 1 bag @ 1 MG/HR 2 mls/hr IV .Q24H [facility] Rx#:[id number] Dexmedetomidine/0.9% NaCl 54.564 58.111 (Pmx) 400 mcg In Empty Bag 1 bag @ 0.2 MCG/KG/HR 3.18 mls/hr IV .Q24H [facility] Rx#:[id number] Potassium Chloride 10 meq 200 In Water For Injection 1 100ml.bag @ 100 mls/hr IVPB Q1H [facility] Rx#: [id number] Sodium Chloride 3%( 25 Hypertonic) 500 ml @ 20 mls/hr IV .Q24H [facility] Rx#: [id number] Output: Urine 140 70 0 Other: Voiding Method Indwelling Catheter Diaper Diaper CAPD CAPD - Exam Physical Exam: Revealed 76-year-old white male, confused, on room air, in no distress. On 2 L nasal cannula. HEENT:[Neck is supple.] [No neck masses.] [No thyromegaly.] [No JVD.] Chest: Symmetrical chest expansion, diminished breath sounds at the bases no crackles or rhonchi or wheezes. Cardiac Exam: [Normal S1 and S2, no S3 gallop, no murmur.] Abdomen: [Soft, nontender, no megaly, no rebound, no guarding, normal bowel sounds.] Peritoneal catheter is noted in the mid abdomen. Extremities: No clubbing edema or cyanosis. Neurologic: Patient is confused, does not seem to follow instructions, and he seems quite encephalopathic. Skin: No rashes. - Labs CBC & Chem 7: 09/04/21 04:04 09/04/21 10:32 Labs: Abnormal Lab Results - Last 24 Hours (Table) 09/03/21 09/03/21 09/03/21 Range/Units 12:36 15:55 18:30 Hct (39.0-53.0) % Neutrophils # (1.3-7.7) k/uL Lymphocytes # (1.0-4.8) k/uL Sodium 108 L* 109 L* (137-145) mmol/L Chloride (98-107) mmol/L BUN (9-20) mg/dL Creatinine (0.66-1.25) mg/dL Glucose (74-99) mg/dL POC Glucose (mg/dL) 150 H (75-99) mg/dL Calcium (8.4-10.2) mg/dL 09/03/21 09/04/21 09/04/21 Range/Units 20:07 00:03 04:04 Hct 38.8 L (39.0-53.0) % Neutrophils # 9.6 H (1.3-7.7) k/uL Lymphocytes # 0.2 L (1.0-4.8) k/uL Sodium 110 L* (137-145) mmol/L Chloride (98-107) mmol/L BUN (9-20) mg/dL Creatinine (0.66-1.25) mg/dL Glucose (74-99) mg/dL POC Glucose (mg/dL) 232 H (75-99) mg/dL Calcium (8.4-10.2) mg/dL 09/04/21 09/04/21 09/04/21 Range/Units 04:05 05:27 10:32 Hct (39.0-53.0) % Neutrophils # (1.3-7.7) k/uL Lymphocytes # (1.0-4.8) k/uL Sodium 114 L* 116 L* (137-145) mmol/L Chloride 81 L (98-107) mmol/L BUN 80 H (9-20) mg/dL Creatinine 7.57 H* (0.66-1.25) mg/dL Glucose 142 H (74-99) mg/dL POC Glucose (mg/dL) 155 H (75-99) mg/dL Calcium 7.5 L (8.4-10.2) mg/dL 09/04/21 Range/Units 12:08 Hct (39.0-53.0) % Neutrophils # (1.3-7.7) k/uL Lymphocytes # (1.0-4.8) k/uL Sodium (137-145) mmol/L Chloride (98-107) mmol/L BUN (9-20) mg/dL Creatinine (0.66-1.25) mg/dL Glucose (74-99) mg/dL POC Glucose (mg/dL) 155 H (75-99) mg/dL Calcium (8.4-10.2) mg/dL Microbiology - Last 24 Hours (Table) 09/03/21 13:20 Body Fluid Culture - Preliminary Peritoneal Fluid 09/02/21 20:48 Blood Culture - Preliminary Blood No Growth after 24 hours 09/02/21 20:48 Blood Culture - Preliminary Blood No Growth after 24 hours Assessment and Plan Assessment: Impression: Severe most likely hypovolemic hyponatremia, it is also related to his renal failure, peritoneal dialysis, and his COVID-19 infection. Acute metabolic encephalopathy secondary to hyponatremia Acute COVID-19 pneumonia but no significant hypoxia noted. Chronic renal failure, on peritoneal dialysis. History of coronary artery disease and previous CABG. Type 2 diabetes. Benign essential hypertension. Recommendation: Continue to monitor sodium, may have to stop 3% saline infusion and either use the dextrose 0.45 or D5W. COVID-19 cocktail. Patient is not a candidate for remdesivir, not a candidate for baricitinib Neurology is following his metabolic encephalopathy. Expect to improve as the sodium gets better. We will continue to follow and monitor in the ICU. Prognosis is extremely poor and guarded. We'll arrange for enteral feeding/2 PM on this patient, a PICC line will be placed today. Time with Patient: Less than 30
--- NOTE | 2021-09-04 13:09 | EEG ---
ELECTROENCEPHALOGRAM REPORT DATE OF SERVICE: 09/04/2021 PREAMBLE: This is a 76-year-old male with altered mental status. EEG FINDINGS: This is a 21 channel digital EEG recorded with video component, utilizing 10/20 international system with referential and bipolar montages. Background consists of moderately well-developed and regulated mixed frequencies of low amplitude mixed 4-6 hertz theta, with some fast frequency beta activity. A lot of myogenic artifact was seen in the early part of the study. The background does not seem to be reactive to eye opening and closing. Photic stimulation was not done. Hyperventilation was not done. No focal or generalized epileptiform activity was seen. Different stages of sleep were not seen. IMPRESSION: This is an abnormal EEG due to the presence of mildly slow, poorly reactive background rhythm. This is suggestive of generalized cerebral dysfunction as can be seen with toxic metabolic encephalopathy or medication effect. No epileptiform activity was seen. MMRAYRAY / RICHARDN: [id number] / MTDD
[2021-09-04] MEDS ORDERED: LIDOCAINE 1% INJ 10MG/ML (20 ML MDV) SQ ONE (13:24)
--- NOTE | 2021-09-04 14:10 | XR ---
EXAMINATION TYPE: XR chest 1V portable DATE OF EXAM: 09/04/2021 COMPARISON: 09/03/2021 INDICATION: PICC line placement TECHNIQUE: Single frontal view of the chest is obtained. FINDINGS: The heart size is normal. The pulmonary vasculature is normal. There are some patchy infiltrates present bilaterally most focal in the peripheral left midlung. Find ings are nonspecific but can be related to atypical pneumonia. There is placement of a left-sided PICC line. The tip appears to be within the proximal right atrium. IMPRESSION: 1. Patchy infiltrates are nonspecific. Correlate for atypical pneumonia. 2. Left-sided PICC line placed with the tip in the proximal right atrium.
--- NOTE | 2021-09-04 14:36 | IR ---
EXAMINATION TYPE: IR cvc insert >=5 years DATE OF EXAM: 09/04/2021 COMPARISON: NONE HISTORY: Fluoroscopy time. Fluoroscopy was provided to the referring clinician.
[2021-09-04 16:19] LABS: Albumin 2.3 g/dL (3.5-5.0)
[2021-09-04 16:35] LABS: Phosphorus 5.4 mg/dL (2.5-4.5)
[2021-09-04 17:54] LABS: Glucose,Whole Blood 198 mg/dL (75-99)
[2021-09-04] MEDS ORDERED: PARENTERAL ELECTROLYTES 20 ML, MVI, ADULT NO.4 WITH VIT K 10 ML, TRACE (CONC-1ML/DOSE) ... IV ONE ×4 (18:00)
--- NOTE | 2021-09-04 21:52 | P.PN ---
Subjective Progress Note Date: 09/04/21 Patient was seen for a follow-up. Patient is currently on Precedex 1 g. Patient gets agitated at time. He is not oriented. He does move all extremities. No seizure-like activity witnessed. Objective - Vital Signs Vital signs: Vital Signs Temp 98.7 F 09/04/21 20:00 Pulse 49 L 09/04/21 21:00 Resp 16 09/04/21 21:00 BP 136/64 09/04/21 21:00 Pulse Ox 97 09/04/21 21:00 Intake & Output 09/04/21 09/04/21 09/05/21 06:59 18:59 06:59 Intake Total 470.731 471.460 77.779 Output Total 70 0 0 Balance 400.731 471.460 77.779 Weight 70.7 kg 70.7 kg Intake: IV 390 80 15 0.9 kvo 40 60 15 Sodium Chloride 3%( 350 20 Hypertonic) 300 ml @ 20 mls/hr IV .Q15H RAIN Rx#: [id number] Intake, IV Titration 80.731 391.460 62.779 Amount Clevidipine Butyrate 25 26.167 35.100 mg In Empty Bag 1 bag @ 1 MG/HR 2 mls/hr IV .Q24H RAIN Rx#:[id number] Dexmedetomidine/0.9% NaCl 54.564 156.360 32.779 (Pmx) 400 mcg In Empty Bag 1 bag @ 0.2 MCG/KG/HR 3.18 mls/hr IV .Q24H RAIN Rx#:[id number] Parenteral Electrolytes 30 20 ml Mvi, Adult No.4 with Vit K 10 ml Trace ( Conc-1Ml/Dose) 1 ml In Amino Acids 5 %/Dextrose 20 % 1,000 ml @ 30 mls/hr IV .Q24H ONE Rx#: [id number] Potassium Chloride 10 meq 200 In Water For Injection 1 100ml.bag @ 100 mls/hr IVPB Q1H RAIN Rx#: [id number] Output: Urine 70 0 0 Other: Voiding Method Diaper Diaper Diaper CAPD CAPD CAPD # Voids 1 - Exam Patient is encephalopathic. Patient is sedated at this time. Patient moves extremities to painful stimuli. Pupils are round and reacting. Face appears symmetric. - Labs CBC & Chem 7: 09/04/21 04:04 09/04/21 19:05 Labs: Abnormal Lab Results - Last 24 Hours (Table) 09/03/21 09/04/21 09/04/21 Range/Units 09:16 00:03 04:04 Hct 38.8 L (39.0-53.0) % Neutrophils # 9.6 H (1.3-7.7) k/uL Lymphocytes # 0.2 L (1.0-4.8) k/uL Sodium (137-145) mmol/L Chloride (98-107) mmol/L BUN (9-20) mg/dL Creatinine (0.66-1.25) mg/dL Glucose (74-99) mg/dL POC Glucose (mg/dL) 232 H (75-99) mg/dL Calcium (8.4-10.2) mg/dL Ionized Calcium Sam (4.5-5.3) mg/dL Phosphorus (2.5-4.5) mg/dL Albumin (3.5-5.0) g/dL Ur Random Sodium <20 L (40-220) mmol/L 09/04/21 09/04/21 09/04/21 Range/Units 04:05 05:27 10:32 Hct (39.0-53.0) % Neutrophils # (1.3-7.7) k/uL Lymphocytes # (1.0-4.8) k/uL Sodium 114 L* 116 L* (137-145) mmol/L Chloride 81 L (98-107) mmol/L BUN 80 H (9-20) mg/dL Creatinine 7.57 H* (0.66-1.25) mg/dL Glucose 142 H (74-99) mg/dL POC Glucose (mg/dL) 155 H (75-99) mg/dL Calcium 7.5 L (8.4-10.2) mg/dL Ionized Calcium Sam (4.5-5.3) mg/dL Phosphorus (2.5-4.5) mg/dL Albumin (3.5-5.0) g/dL Ur Random Sodium (40-220) mmol/L 09/04/21 09/04/21 09/04/21 Range/Units 12:08 13:59 14:20 Hct (39.0-53.0) % Neutrophils # (1.3-7.7) k/uL Lymphocytes # (1.0-4.8) k/uL Sodium 116 L* (137-145) mmol/L Chloride (98-107) mmol/L BUN (9-20) mg/dL Creatinine (0.66-1.25) mg/dL Glucose (74-99) mg/dL POC Glucose (mg/dL) 155 H (75-99) mg/dL Calcium (8.4-10.2) mg/dL Ionized Calcium Sam (4.5-5.3) mg/dL Phosphorus 5.4 H (2.5-4.5) mg/dL Albumin 2.3 L (3.5-5.0) g/dL Ur Random Sodium (40-220) mmol/L 09/04/21 09/04/21 09/04/21 Range/Units 15:45 17:52 19:05 Hct (39.0-53.0) % Neutrophils # (1.3-7.7) k/uL Lymphocytes # (1.0-4.8) k/uL Sodium 117 L* (137-145) mmol/L Chloride (98-107) mmol/L BUN (9-20) mg/dL Creatinine (0.66-1.25) mg/dL Glucose (74-99) mg/dL POC Glucose (mg/dL) 198 H (75-99) mg/dL Calcium (8.4-10.2) mg/dL Ionized Calcium Sam 3.8 L (4.5-5.3) mg/dL Phosphorus (2.5-4.5) mg/dL Albumin (3.5-5.0) g/dL Ur Random Sodium (40-220) mmol/L Microbiology - Last 24 Hours (Table) 09/03/21 13:20 Gram Stain - Preliminary Peritoneal Fluid Body Fluid Culture - Preliminary 09/02/21 20:48 Blood Culture - Preliminary Blood No Growth after 24 hours 09/02/21 20:48 Blood Culture - Preliminary Blood No Growth after 24 hours Assessment and Plan Assessment: * Altered mental status, likely due to toxic metabolic encephalopathy. Reasons multifactorial as below. * Severe hyponatremia * Covid-19 related pneumonia * Renal failure, on peritoneal dialysis * Accelerated hypertension, some component of hypertensive encephalopathy. Blood pressure on arrival was 245/105. * Hypertension * Diabetes * Coronary artery disease Plan: * CT head still pending. * EEG was performed, which revealed mild to moderate background slowing consistent with encephalopathy. No epileptiform activity was seen. * Patient's sodium has improved 116 today. Current BUN is 80, creatinine 7.57. * Medical management as per IM, ICU. * Neurology will follow.
[2021-09-05 00:17] LABS: Glucose,Whole Blood 311 mg/dL (75-99)
[2021-09-05 00:20] LABS: Glucose,Whole Blood 300 mg/dL (75-99)
[2021-09-05] MEDS: INSULIN ASPART (NovoLOG) 100 UNIT/ML VIAL SQ SCH ×4 (00:27→18:58)
[2021-09-05] MEDS: DEXMEDETOMIDINE/0.9% NACL(PMX) 400 MCG in EMPTY BAG 1 BAG IV SCH ×2 (00:27→06:17)
[2021-09-05] MEDS: CLEVIDIPINE BUTYRATE 25 MG in EMPTY BAG 1 BAG IV SCH ×2 (04:18→23:57)
[2021-09-05 04:41] LABS: Calcium 7.1 mg/dL (8.4-10.2); Phosphorus 4.9 mg/dL (2.5-4.5); Potassium 3.1 mmol/L (3.5-5.1)
[2021-09-05] MEDS ORDERED: Potassium Replacement Protocol 1 EACH MISC MISCELLANE PRN (05:07)
[2021-09-05] MEDS: POTASSIUM CHLORIDE 20 MEQ in WATER FOR INJECTION 1 100ML.BAG IVPB SCH ×2 (05:15→07:17)
[2021-09-05 05:22] LABS: Glucose,Whole Blood 292 mg/dL (75-99)
[2021-09-05] MEDS: DIALYSIS (PERIT 1.5%) 2,000 ML 30 G/2,000 ML BAG INTRAPERIT SCH ×4 (05:52→23:54)
[2021-09-05] MEDS: SODIUM CHLORIDE 3%(HYPERTONIC) 500 ML IV SCH (06:14)
[2021-09-05] MEDS: CALCIUM ACETATE 667 MG TAB PO SCH ×2 (06:57→16:07)
[2021-09-05] MEDS ORDERED: SODIUM CHLORIDE 0.9% 1,000 ML IV SCH (08:30)
[2021-09-05] MEDS ORDERED: FAT EMULSION 20% 250 ML in EMPTY BAG 1 BAG IV SCH (09:00)
[2021-09-05] MEDS: ASCORBIC ACID 500 MG TAB PO SCH (09:15)
[2021-09-05] MEDS: CHOLECALCIFEROL 25 MCG (1000 IU) TABLET PO SCH (09:15)
[2021-09-05] MEDS: PANTOPRAZOLE 40 MG/10 ML VIAL IV SCH (09:24)
[2021-09-05] MEDS: DEXAMETHASONE SOD PHOSPHATE 10 MG/ML 1 ML VIAL IVP SCH (09:24)
[2021-09-05] MEDS: HEPARIN SODIUM,PORCINE/PF 5,000 UNIT/0.5 ML SYRINGE SQ SCH ×2 (09:24→20:38)
--- NOTE | 2021-09-05 10:53 | P.PN ---
Subjective Progress Note Date: 09/05/21 Principal diagnosis: Severe hyponatremia, acute metabolic encephalopathy This is a 76-year-old white male with history of multiple medical problems including end-stage renal disease, on peritoneal dialysis, known history of diabetes, congestive heart failure, coronary artery disease and previous CABG, patient presented to the ER yesterday with 1 day history of abdominal pain. Patient was also noted to be quite confused, workup included a CT of the abdomen and pelvis which came back negative. However his labs were quite abnormal, and his sodium was noted to be 104. The patient himself is a very poor historian, could not get any information from the patient seems to be extremely confused. Patient was also noted to have abnormal renal profile with a BUN of 79 creatini ne of 7.34, and he had positive PCR for COVID-19 infection. No chest x-ray was done in the ER, hence short the after I evaluated the patient, chest x-ray was ordered. The meantime the patient is on room air, his O2 sats was 92-97% on room air. Is afebrile, blood pressure is elevated at 149/96. Upon admission and when I was notified about this patient last night, his PCR for COVID-19 was pending. And I recommended starting the patient on slow infusion of 3% saline and slow correction of his hyponatremia. This morning repeat sodium is 108. Nephrology is yet to see the patient today regarding his chronic renal failure/peritoneal dialysis, and regarding his profound and severe hyponatremia. Chest x-ray showed scattered bilateral infiltrates peripherally and at the bases mostly. Clinically, the patient looks euvolemic, no history to suggest nausea vomiting diarrhea. Patient was reevaluated today on 09/04/2021, patient remains in the ICU, remains on 3% saline for profound hyponatremia, his sodium is correcting slowly. He was seen by nephrology, and the plan is to discontinue 3% later on today. It is running at 20 mL per hour. Patient developed significant hypertension yesterday and agitation, placed on Precedex and he was also placed on clevidipine extra. His blood pressure today seems to be better controlled. However the patient still requires Precedex. Seems to be calm, patient is undergoing peritoneal dialysis. Today I recommended a PICC line and possibly starting the patient on TPN. Nurse tried to put a nasogastric tube in this patient, however he was extremely agitated and he kept pulling it out. I believe the best mode of nutrition for this patient at this point would have to be TPN. Sodium today is up to 116, patient presented initially with a sodium of 104. CBC is relatively normal renal profile is abnormal with a BUN of 80 creatinine 7.57, patient is on peritoneal dialysis. Pulmonary-wilburn, patient is on a couple of liters of oxygen, not in distress, although the patient did have positive PCR for COVID-19 infection, and his chest x-ray on admission showed multifocal opacities consistent with COVID-19 pneumonia The patient is seen today 09/05/2029 in follow-up in the intensive care unit. He was quite a bit more awake and alert today compared to yesterday. He is oriented 2. He is maintaining O2 saturations in the 90s on 2 L/m per nasal cannula. He is receiving peritoneal dialysis every 6 hours. He is currently on 3% normal saline at 35 ML's per hour. Precedex at 0.8 mcgkg/hr. Clevidipine at 2 mg per hour. He is receiving TPN for nourishment at 30 MLS per hour to be increased to 75 ML's. Peritoneal fluid cultures are pending. Blood cultures reveal no growth to date. Current sodium is 119. Potassium 3.1. Chloride 89. Bicarb 23. BUN 73. Creatinine 6.81. Glucose 292. He is remaining in sinus rhythm. Swallow evaluation pending. Objective - Vital Signs Vital signs: Vital Signs Temp 97.8 F 09/05/21 08:00 Pulse 60 09/05/21 10:00 Resp 14 09/05/21 10:00 BP 165/89 09/05/21 10:00 Pulse Ox 96 09/05/21 10:00 Intake & Output 09/04/21 09/05/21 09/05/21 18:59 06:59 18:59 Intake Total 471.460 244.876 20 Output Total 0 0 0 Balance 471.460 244.876 20 Weight 70.7 kg 73.255 kg 73.255 kg Intake: IV 80 60 20 0.9 kvo 60 60 20 Sodium Chloride 3%( 20 Hypertonic) 300 ml @ 20 mls/hr IV .Q15H [facility] Rx#: [id number] Intake, IV Titration 391.460 184.876 Amount Clevidipine Butyrate 25 35.100 25.3 mg In Empty Bag 1 bag @ 1 MG/HR 2 mls/hr IV .Q24H [facility] Rx#:[id number] Dexmedetomidine/0.9% NaCl 156.360 129.576 (Pmx) 400 mcg In Empty Bag 1 bag @ 0.2 MCG/KG/HR 3.18 mls/hr IV .Q24H [facility] Rx#:[id number] Parenteral Electrolytes 30 20 ml Mvi, Adult No.4 with Vit K 10 ml Trace ( Conc-1Ml/Dose) 1 ml In Amino Acids 5 %/Dextrose 20 % 1,000 ml @ 30 mls/hr IV .Q24H ONE Rx#: [id number] Potassium Chloride 10 meq 200 In Water For Injection 1 100ml.bag @ 100 mls/hr IVPB Q1H [facility] Rx#: [id number] Output: Urine 0 0 0 Other: Voiding Method Diaper Diaper Diaper CAPD CAPD CAPD # Voids 1 - Exam GENERAL EXAM: Alert, oriented 2, 76-year-old female patient, on 2 L nasal cannula, comfortable in no apparent distress. HEAD: Normocephalic. EYES: Normal reaction of pupils, equal size. NOSE: Clear with pink turbinates. THROAT: No erythema or exudates. NECK: No masses, no JVD. CHEST: No chest wall deformity. LUNGS: Equal air entry with faint crackles in the posterior bases. CVS: S1 and S2 normal with no audible murmur, regular rhythm. ABDOMEN: Peritoneal catheter exit site is clean and dry. No hepatosplenomegaly, normal bowel sounds, no guarding or rigidity. SPINE: No scoliosis or deformity SKIN: No rashes CENTRAL NERVOUS SYSTEM: No focal deficits, tone is normal in all 4 extremities. EXTREMITIES: PICC line to the left upper extremity There is no peripheral edema. No clubbing, no cyanosis. Peripheral pulses are intact. - Labs CBC & Chem 7: 09/04/21 04:04 09/05/21 03:44 Labs: Abnormal Lab Results - Last 24 Hours (Table) 09/03/21 09/04/21 09/04/21 Range/Units 09:16 10:32 12:08 Sodium 116 L* (137-145) mmol/L Potassium (3.5-5.1) mmol/L Chloride (98-107) mmol/L BUN (9-20) mg/dL Creatinine (0.66-1.25) mg/dL Glucose (74-99) mg/dL POC Glucose (mg/dL) 155 H (75-99) mg/dL Calcium (8.4-10.2) mg/dL Ionized Calcium Sam (4.5-5.3) mg/dL Phosphorus (2.5-4.5) mg/dL Albumin (3.5-5.0) g/dL Ur Random Sodium <20 L (40-220) mmol/L 09/04/21 09/04/21 09/04/21 Range/Units 13:59 14:20 15:45 Sodium 116 L* (137-145) mmol/L Potassium (3.5-5.1) mmol/L Chloride (98-107) mmol/L BUN (9-20) mg/dL Creatinine (0.66-1.25) mg/dL Glucose (74-99) mg/dL POC Glucose (mg/dL) (75-99) mg/dL Calcium (8.4-10.2) mg/dL Ionized Calcium Sam 3.8 L (4.5-5.3) mg/dL Phosphorus 5.4 H (2.5-4.5) mg/dL Albumin 2.3 L (3.5-5.0) g/dL Ur Random Sodium (40-220) mmol/L 09/04/21 09/04/21 09/04/21 Range/Units 17:52 19:05 22:52 Sodium 117 L* 117 L* (137-145) mmol/L Potassium (3.5-5.1) mmol/L Chloride (98-107) mmol/L BUN (9-20) mg/dL Creatinine (0.66-1.25) mg/dL Glucose (74-99) mg/dL POC Glucose (mg/dL) 198 H (75-99) mg/dL Calcium (8.4-10.2) mg/dL Ionized Calcium Sam (4.5-5.3) mg/dL Phosphorus (2.5-4.5) mg/dL Albumin (3.5-5.0) g/dL Ur Random Sodium (40-220) mmol/L 09/05/21 09/05/21 09/05/21 Range/Units 00:16 00:18 03:44 Sodium 119 L* (137-145) mmol/L Potassium 3.1 L (3.5-5.1) mmol/L Chloride 89 L (98-107) mmol/L BUN 73 H (9-20) mg/dL Creatinine 6.81 H (0.66-1.25) mg/dL Glucose 309 H (74-99) mg/dL POC Glucose (mg/dL) 311 H 300 H (75-99) mg/dL Calcium 7.1 L (8.4-10.2) mg/dL Ionized Calcium Sam (4.5-5.3) mg/dL Phosphorus 4.9 H (2.5-4.5) mg/dL Albumin (3.5-5.0) g/dL Ur Random Sodium (40-220) mmol/L 09/05/21 Range/Units 05:20 Sodium (137-145) mmol/L Potassium (3.5-5.1) mmol/L Chloride (98-107) mmol/L BUN (9-20) mg/dL Creatinine (0.66-1.25) mg/dL Glucose (74-99) mg/dL POC Glucose (mg/dL) 292 H (75-99) mg/dL Calcium (8.4-10.2) mg/dL Ionized Calcium Sam (4.5-5.3) mg/dL Phosphorus (2.5-4.5) mg/dL Albumin (3.5-5.0) g/dL Ur Random Sodium (40-220) mmol/L Microbiology - Last 24 Hours (Table) 09/02/21 20:48 Blood Culture - Preliminary Blood No Growth after 48 hours 09/02/21 20:48 Blood Culture - Preliminary Blood No Growth after 48 hours 09/03/21 13:20 Gram Stain - Preliminary Peritoneal Fluid Body Fluid Culture - Preliminary Assessment and Plan Assessment: 1 Altered mental status secondary to severe hypovolemic hyponatremia 2 Acute COVID-19 Infection 3 Chronic renal failure, on peritoneal dialysis 4 History of coronary disease with previous coronary artery bypass grafting 5 Diabetes mellitus 6 Hypertension Plan: The patient was seen and evaluated by Dr. Park To discontinue 3% normal saline Initiate 0.9 normal saline at 50 MLS per hour Titrate the Precedex as tolerated Titrate the clevidipine as tolerated Follow-up sodium level pending Swallow evaluation Continue TPN for now We will continue to follow I, the cosigning physician, performed a history & physical examination of the patient. Lungs sounds with crackles in the bilateral bases. Maintaining good O2 saturations in the 90s on 2 L/m per nasal cannula. I discussed the assessment and plan of care with my nurse practitioner, Danae Saleh. I attest to the above note as dictated by her.
--- NOTE | 2021-09-05 11:55 | PN ---
PROGRESS NOTE Patient is seen for followup for end-stage renal disease. Patient is maintained on peritoneal dialysis. He also has underlying COVID pneumonia. He was admitted to the hospital with complaints of increased weakness, mental status changes and found to have a sodium of 104. The patient has had a previous history of hyponatremia, but it has never been that low. He was treated with 3% saline and patient remains on the 3% saline since sodium level has been slow to increase. Mentation has improved significantly. The patient had been in restraints. Hopefully we can take off the restraints today. He does not have significant respiratory symptoms and has been maintained on 2 L nasal cannula with good O2 sats at 96%. EXAMINATION: On examination today, blood pressure 138/67, heart rate 54, per minute. Patient is afebrile. Examination of lower extremities shows no evidence of edema. Abdomen is soft, nontender. SLOPE TENDER exam is significantly improved. Patient is able to recognize me. He is moving all 4 extremities and asking for the restraints to be taken off. LAB: Show sodium of 119, potassium 3.1, chloride 89, BUN 73, creatinine 6.8. ASSESSMENT: 1. End-stage renal disease maintained on peritoneal dialysis. We will continue current PD exchanges. 2. Severe hyponatremia with significant mental status changes, maintained on 3% saline with improving serum sodium. We can likely discontinue the 3% saline today after the 10 o'clock sodium is back. 3. Urine osmolality was 300 however this is not accurate given his underlying end- stage renal disease. Once patient is able to eat, we could give him a dose of tolvaptan later on today. 4. Hypokalemia, will replace. 5. Covid pneumonia with no significant respiratory symptoms, maintained on steroids. 6. 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 7. Hypertension. Patient had been on Cleviprex as he was not able to take any p.o. medications. This will likely be discontinued today. PLAN: Replace potassium for his normal saline for now, as serum sodium may worsen and it has taken about 3 days to increase his serum sodium with the 3% saline. Previous episodes of hyponatremia as outpatient have been most suggestive of SIADH picture. MMODL / IJN: [id number] /
[2021-09-05 13:46] LABS: Glucose,Whole Blood 103 mg/dL (75-99)
--- NOTE | 2021-09-05 18:32 | P.PN ---
Subjective This is a pleasant 76 years old male with past medical history of Heart Failure, Diabetes Mellitus, renal disease on peritoneal Dialysis, Hypertension, history of Coronary Bypass/CABG, Patient presents because of abdominal pain per emergency room Note however patient found to have be confused with hypernatremia His sodium on admission was 104, earlier this morning was 108 and ended in weight respectively. patient currently remains in the ICU confused, does not follow commands, he is also on restraints. He denies any chest pain or abdominal pain. His abdomen looks soft and there is dialysis to running out of his left lower quadrant of abdomen, not connected to anything. His abdomen is soft with no tenderness or guarding. No rebound tenderness he moves all extremities equally. Patient is poor historian On admission he is afebrile, his breathing rate around 11, blood pressure 174/96 and he is saturating 95% on room air. WBC 6.9 and 13.3. Rest of CBC is unremarkable. Sodium on admission was low at 104, currently is 108. Unknown baseline. Creatinine elevated 7.3. Troponin is elevated at 0.05 Urine analysis is showing 2+ protein, 2+ glucose. Hamilton v. is detected CT of the abdomen and pelvis with no contrast: Sigmoid diverticulosis without diverticulitis. Atherosclerotic vascular disease. None obstructing large calculus right renal pelvis In the emergency room patient received Protonix, pain medication Nephrology and ice team were consulted already 09/04/2021 Patient is confused and sleepy, does not follow command. Sitter at bedside. His metabolic encephalopathy most likely secondary to hypernatremia. Neurologist on the case. EKG and CT of the brain are pending. He is not in respiratory distress and abdomen is soft. Distal on 3% normal saline at 20 ml/h. Also he was started on calviprex her blood pressure was elevated last night 194/85. Sodium today improved 214. Echocardiogram showed ejection fraction of 55-60% with moderate aortic stenosis Patient continued to 3% NS, calviprex DRIP, multiple vitamins and dexamethasone. Also he is on subcutaneous heparin for DVT prophylaxis 09/05/2021 Patient today is awake and alert and oriented to place, he knows he is [facility] but he still disoriented to time person. He follows commands approp riately. He denies any specific complaints. Improved. 125 and 3% saline was discontinued and patient was started on TPN pending swallow evaluation. Blood pressure is a stable while he is still on Calviprex drip, last blood pressure 150/71. He remains on dexamethasone, multiple vitamins forego with infection but he is saturating 95 % on 2 L/m of oxygen. We'll keep monitoring sodium Objective - Vital Signs Vital signs: Vital Signs Temp 98.9 F 09/05/21 16:00 Pulse 80 09/05/21 16:00 Resp 15 09/05/21 16:00 BP 154/78 09/05/21 16:00 Pulse Ox 92 L 09/05/21 16:43 Intake & Output 09/04/21 09/05/21 09/05/21 18:59 06:59 18:59 Intake Total 471.460 244.876 45 Output Total 0 0 0 Balance 471.460 244.876 45 Weight 70.7 kg 73.255 kg 73.255 kg Intake: IV 80 60 45 0.9 kvo 60 60 45 Sodium Chloride 3%( 20 Hypertonic) 300 ml @ 20 mls/hr IV .Q15H [facility] Rx#: [id number] Intake, IV Titration 391.460 184.876 Amount Clevidipine Butyrate 25 35.100 25.3 mg In Empty Bag 1 bag @ 1 MG/HR 2 mls/hr IV .Q24H [facility] Rx#:[id number] Dexmedetomidine/0.9% NaCl 156.360 129.576 (Pmx) 400 mcg In Empty Bag 1 bag @ 0.2 MCG/KG/HR 3.18 mls/hr IV .Q24H [facility] Rx#:[id number] Parenteral Electrolytes 30 20 ml Mvi, Adult No.4 with Vit K 10 ml Trace ( Conc-1Ml/Dose) 1 ml In Amino Acids 5 %/Dextrose 20 % 1,000 ml @ 30 mls/hr IV .Q24H [facility] Rx#: [id number] Potassium Chloride 10 meq 200 In Water For Injection 1 100ml.bag @ 100 mls/hr IVPB Q1H [facility] Rx#: [id number] Output: Urine 0 0 0 Other: Voiding Method Diaper Diaper Diaper CAPD CAPD CAPD # Voids 1 - Exam -GENERAL: The patient is sleepy, not in any acute distress. Well developed, well nourished. HEENT: Pupils are round and equally reacting to light. EOMI. No scleral icterus. No conjunctival pallor. Normocephalic, atraumatic. No pharyngeal erythema. No thyromegaly. CARDIOVASCULAR: S1 and S2 present. No murmurs, rubs, or gallops. PULMONARY: Chest is clear to auscultation, no wheezing or crackles. -ABDOMEN: Soft, nontender, nondistended, normoactive bowel sounds. No palpable organomegaly. Peritoneal tube from the left lower quadrant, not connected MUSCULOSKELETAL: No joint swelling or deformity. EXTREMITIES: No cyanosis, clubbing, or pedal edema. NEUROLOGICAL: Gross neurological examination did not reveal any focal deficits. SKIN: No rashes. no petechiae. - Labs CBC & Chem 7: 09/04/21 04:04 09/05/21 10:26 Labs: Abnormal Lab Results - Last 24 Hours (Table) 09/04/21 09/04/21 09/04/21 Range/Units 17:52 19:05 22:52 Sodium 117 L* 117 L* (137-145) mmol/L Potassium (3.5-5.1) mmol/L Chloride (98-107) mmol/L BUN (9-20) mg/dL Creatinine (0.66-1.25) mg/dL Glucose (74-99) mg/dL POC Glucose (mg/dL) 198 H (75-99) mg/dL Calcium (8.4-10.2) mg/dL Phosphorus (2.5-4.5) mg/dL 09/05/21 09/05/21 09/05/21 Range/Units 00:16 00:18 03:44 Sodium 119 L* (137-145) mmol/L Potassium 3.1 L (3.5-5.1) mmol/L Chloride 89 L (98-107) mmol/L BUN 73 H (9-20) mg/dL Creatinine 6.81 H (0.66-1.25) mg/dL Glucose 309 H (74-99) mg/dL POC Glucose (mg/dL) 311 H 300 H (75-99) mg/dL Calcium 7.1 L (8.4-10.2) mg/dL Phosphorus 4.9 H (2.5-4.5) mg/dL 09/05/21 09/05/21 09/05/21 Range/Units 05:20 10:26 13:44 Sodium 125 L (137-145) mmol/L Potassium (3.5-5.1) mmol/L Chloride (98-107) mmol/L BUN (9-20) mg/dL Creatinine (0.66-1.25) mg/dL Glucose (74-99) mg/dL POC Glucose (mg/dL) 292 H 103 H (75-99) mg/dL Calcium (8.4-10.2) mg/dL Phosphorus (2.5-4.5) mg/dL Microbiology - Last 24 Hours (Table) 09/02/21 20:48 Blood Culture - Preliminary Blood No Growth after 48 hours 09/02/21 20:48 Blood Culture - Preliminary Blood No Growth after 48 hours 09/03/21 13:20 Gram Stain - Preliminary Peritoneal Fluid Body Fluid Culture - Preliminary Assessment and Plan Assessment: severe hyponatremia Altered mental status, most likely metabolic encephalopathy secondary to hyponatremia Covid infection with no hypoxia Diabetes mellitus Chronic heart failure Hypertension Elevated troponin History of coronary artery disease status post CABG History of renal disease on dialysis Right kidney stone Plan: This is a pleasant 76 years old male who presents with hypernatremia Keep monitor sodium closely. Stop 3% saline . Continue with peritoneal dialysis. Nephrology team recommendation Critical team consult Neurology on the case. Continue with TPN. Swallow evaluation Labs and medication were reviewed.. Continue same treatment. Continue with symptomatic treatment. Resume home medication. Monitor lytes and vitals. DVT and GI prophylaxis. Further recommendations depends on the clinical course of the patient DVT prophylaxis: Subcutaneous heparin GI Prophylaxis: Ppi Prognosis is guarded
[2021-09-05 18:39] LABS: Glucose,Whole Blood 214 mg/dL (75-99)
[2021-09-05] MEDS: PARENTERAL ELECTROLYTES IV SCH ×5 (23:02)
[2021-09-05] MEDS: [UNRECOGNIZED DRUG - OTHER] IV SCH ×5 (23:02)
[2021-09-05] MEDS: SODIUM CHLORIDE IV SCH ×5 (23:02)
[2021-09-06 00:02] LABS: Glucose,Whole Blood 298 mg/dL (75-99)
[2021-09-06] MEDS: INSULIN ASPART (NovoLOG) 100 UNIT/ML VIAL SQ SCH ×4 (00:16→17:57)
[2021-09-06] MEDS: CLEVIDIPINE BUTYRATE 25 MG in EMPTY BAG 1 BAG IV SCH ×2 (03:45→06:39)
[2021-09-06 05:05] LABS: Calcium 7.5 mg/dL (8.4-10.2); Phosphorus 3.4 mg/dL (2.5-4.5); Potassium 3.3 mmol/L (3.5-5.1)
[2021-09-06] MEDS: DIALYSIS (PERIT 1.5%) 2,000 ML 30 G/2,000 ML BAG INTRAPERIT SCH ×4 (06:27→23:07)
[2021-09-06 06:37] LABS: Glucose,Whole Blood 328 mg/dL (75-99)
[2021-09-06] MEDS: SODIUM CHLORIDE IV SCH ×11 (07:15→17:21)
[2021-09-06] MEDS: PARENTERAL ELECTROLYTES IV SCH ×11 (07:15→17:21)
[2021-09-06] MEDS: [UNRECOGNIZED DRUG - OTHER] IV SCH ×5 (07:15)
[2021-09-06] MEDS ORDERED: MORPHINE SULFATE 2 MG/ML SYRINGE IVP PRN (09:20)
[2021-09-06] MEDS: CHOLECALCIFEROL 25 MCG (1000 IU) TABLET PO SCH (09:48)
[2021-09-06] MEDS: DEXAMETHASONE SOD PHOSPHATE 10 MG/ML 1 ML VIAL IVP SCH (09:48)
[2021-09-06] MEDS: PANTOPRAZOLE 40 MG/10 ML VIAL IV SCH (09:48)
[2021-09-06] MEDS: amLODIPine 10 MG TAB PO SCH (09:48)
[2021-09-06] MEDS: HEPARIN SODIUM,PORCINE/PF 5,000 UNIT/0.5 ML SYRINGE SQ SCH ×2 (09:48→20:24)
[2021-09-06] MEDS: ASCORBIC ACID 500 MG TAB PO SCH (09:48)
[2021-09-06] MEDS: CALCIUM ACETATE 667 MG TAB PO SCH ×3 (09:50→17:57)
[2021-09-06] MEDS: carvediloL 12.5 MG TAB PO SCH ×2 (09:50→18:00)
--- NOTE | 2021-09-06 09:51 | P.PN ---
Subjective Progress Note Date: 09/06/21 Principal diagnosis: Severe hyponatremia, acute metabolic encephalopathy This is a 76-year-old white male with history of multiple medical problems including end-stage renal disease, on peritoneal dialysis, known history of diabetes, congestive heart failure, coronary artery disease and previous CABG, patient presented to the ER yesterday with 1 day history of abdominal pain. Patient was also noted to be quite confused, workup included a CT of the abdomen and pelvis which came back negative. However his labs were quite abnormal, and his sodium was noted to be 104. The patient himself is a very poor historian, could not get any information from the patient seems to be extremely confused. Patient was also noted to have abnormal renal profile with a BUN of 79 creatini ne of 7.34, and he had positive PCR for COVID-19 infection. No chest x-ray was done in the ER, hence short the after I evaluated the patient, chest x-ray was ordered. The meantime the patient is on room air, his O2 sats was 92-97% on room air. Is afebrile, blood pressure is elevated at 149/96. Upon admission and when I was notified about this patient last night, his PCR for COVID-19 was pending. And I recommended starting the patient on slow infusion of 3% saline and slow correction of his hyponatremia. This morning repeat sodium is 108. Nephrology is yet to see the patient today regarding his chronic renal failure/peritoneal dialysis, and regarding his profound and severe hyponatremia. Chest x-ray showed scattered bilateral infiltrates peripherally and at the bases mostly. Clinically, the patient looks euvolemic, no history to suggest nausea vomiting diarrhea. Patient was reevaluated today on 09/04/2021, patient remains in the ICU, remains on 3% saline for profound hyponatremia, his sodium is correcting slowly. He was seen by nephrology, and the plan is to discontinue 3% later on today. It is running at 20 mL per hour. Patient developed significant hypertension yesterday and agitation, placed on Precedex and he was also placed on clevidipine extra. His blood pressure today seems to be better controlled. However the patient still requires Precedex. Seems to be calm, patient is undergoing peritoneal dialysis. Today I recommended a PICC line and possibly starting the patient on TPN. Nurse tried to put a nasogastric tube in this patient, however he was extremely agitated and he kept pulling it out. I believe the best mode of nutrition for this patient at this point would have to be TPN. Sodium today is up to 116, patient presented initially with a sodium of 104. CBC is relatively normal renal profile is abnormal with a BUN of 80 creatinine 7.57, patient is on peritoneal dialysis. Pulmonary-wilburn, patient is on a couple of liters of oxygen, not in distress, although the patient did have positive PCR for COVID-19 infection, and his chest x-ray on admission showed multifocal opacities consistent with COVID-19 pneumonia The patient is seen today 09/05/2029 in follow-up in the intensive care unit. He was quite a bit more awake and alert today compared to yesterday. He is oriented 2. He is maintaining O2 saturations in the 90s on 2 L/m per nasal cannula. He is receiving peritoneal dialysis every 6 hours. He is currently on 3% normal saline at 35 ML's per hour. Precedex at 0.8 mcgkg/hr. Clevidipine at 2 mg per hour. He is receiving TPN for nourishment at 30 MLS per hour to be increased to 75 ML's. Peritoneal fluid cultures are pending. Blood cultures reveal no growth to date. Current sodium is 119. Potassium 3.1. Chloride 89. Bicarb 23. BUN 73. Creatinine 6.81. Glucose 292. He is remaining in sinus rhythm. Swallow evaluation pending. The patient is seen today 09/06/2021 in follow-up in the intensive care unit. He is currently alert and oriented 3. He is maintaining O2 saturations in the mid 90s on 2 L/m per nasal cannula. Afebrile. He is doing quite well. He is swallowing well. He remains on clevidipine at 8 mg per hour. He's been off the Precedex about 24 hours now. His sodium is 122. Potassium 3.3. BUN 73. Creatinine 6.28. Glucose 301. Calcium 7.5. He remains on Decadron. Heparin for DVT prophylaxis. Remains on TPN and lipids for nutritional support. Objective - Vital Signs Vital signs: Vital Signs Temp 97.9 F 09/06/21 08:00 Pulse 92 09/06/21 09:00 Resp 23 09/06/21 09:00 BP 157/74 09/06/21 09:00 Pulse Ox 94 L 09/06/21 09:00 Intake & Output 09/05/21 09/06/21 09/06/21 18:59 06:59 18:59 Intake Total 60 203.1 15 Output Total 0 0 0 Balance 60 203.1 15 Weight 73.255 kg 74.3 kg Intake: IV 60 60 15 0.9 kvo 60 60 15 Intake, IV Titration 143.1 Amount Clevidipine Butyrate 25 143.1 mg In Empty Bag 1 bag @ 1 MG/HR 2 mls/hr IV .Q24H [facility] Rx#:[id number] Output: Urine 0 0 0 Other: Voiding Method Diaper Diaper Diaper CAPD CAPD CAPD - Exam GENERAL EXAM: Alert, oriented 3, 76-year-old female patient, on 2 L nasal cannula, comfortable in no apparent distress. HEAD: Normocephalic. EYES: Normal reaction of pupils, equal size. NOSE: Clear with pink turbinates. THROAT: No erythema or exudates. NECK: No masses, no JVD. CHEST: No chest wall deformity. LUNGS: Equal air entry with faint crackles in the posterior bases. CVS: S1 and S2 normal with no audible murmur, regular rhythm. ABDOMEN: Peritoneal catheter exit site is clean and dry. No hepatosplenomegaly, normal bowel sounds, no guarding or rigidity. SPINE: No scoliosis or deformity SKIN: No rashes CENTRAL NERVOUS SYSTEM: No focal deficits, tone is normal in all 4 extremities. EXTREMITIES: PICC line to the left upper extremity There is no peripheral edema. No clubbing, no cyanosis. Peripheral pulses are intact. - Labs CBC & Chem 7: 09/04/21 04:04 09/06/21 04:36 Labs: Abnormal Lab Results - Last 24 Hours (Table) 09/05/21 09/05/21 09/05/21 Range/Units 10:26 13:44 18:37 Sodium 125 L (137-145) mmol/L Potassium (3.5-5.1) mmol/L Chloride (98-107) mmol/L BUN (9-20) mg/dL Creatinine (0.66-1.25) mg/dL Glucose (74-99) mg/dL POC Glucose (mg/dL) 103 H 214 H (75-99) mg/dL Calcium (8.4-10.2) mg/dL 09/05/21 09/06/21 09/06/21 Range/Units 20:44 00:01 04:36 Sodium 123 L 122 L (137-145) mmol/L Potassium 3.3 L (3.5-5.1) mmol/L Chloride 91 L (98-107) mmol/L BUN 73 H (9-20) mg/dL Creatinine 6.28 H (0.66-1.25) mg/dL Glucose 301 H (74-99) mg/dL POC Glucose (mg/dL) 298 H (75-99) mg/dL Calcium 7.5 L (8.4-10.2) mg/dL 09/06/21 Range/Units 06:36 Sodium (137-145) mmol/L Potassium (3.5-5.1) mmol/L Chloride (98-107) mmol/L BUN (9-20) mg/dL Creatinine (0.66-1.25) mg/dL Glucose (74-99) mg/dL POC Glucose (mg/dL) 328 H (75-99) mg/dL Calcium (8.4-10.2) mg/dL Microbiology - Last 24 Hours (Table) 09/02/21 20:48 Blood Culture - Preliminary Blood No Growth after 72 hours 09/02/21 20:48 Blood Culture - Preliminary Blood No Growth after 72 hours Assessment and Plan Assessment: 1 Altered mental status secondary to severe hypovolemic hyponatremia, , improved. Alert and oriented 3 today. Sodium 122. 2 Acute COVID-19 Infection 3 Chronic renal failure, on peritoneal dialysis 4 History of coronary disease with previous coronary artery bypass grafting 5 Diabetes mellitus 6 Hypertension Plan: The patient was seen and evaluated by Dr. Park The patient is swallowing well Add amlodipine, carvedilol Wean off the clevidipine Continue TPN for now Nephrology is on the case We will continue to follow I, the cosigning physician, performed a history & physical examination of the patient. Lungs sounds with crackles in the bilateral bases. Maintaining good O2 saturations in the 90s on 2 L/m per nasal cannula. I discussed the assessment and plan of care with my nurse practitioner, Danae Saleh. I attest to the above note as dictated by her.
[2021-09-06] MEDS: POTASSIUM CHLORIDE 20 MEQ in WATER FOR INJECTION 1 100ML.BAG IVPB SCH ×2 (09:52→11:48)
--- NOTE | 2021-09-06 11:05 | P.PN ---
Subjective Progress Note Date: 09/06/21 Principal diagnosis: This is a 76-year-old male, known to us with ESRD on peritoneal dialysis who came in with mental status confusion and hyponatremia sodium was 104. He was also noted to have copious pneumonia. Patient is not seen physically but was discussed with the nursing staff. His dyspnea improved mental status improved and he is allowed oral intake now and is starting to eat. He was given 3% saline sodium improved to 122, slowly over the last 4 days since admission. His vital signs are stable no edema noted He is known with diabetes status post coronary artery bypass graft Objective - Vital Signs Vital signs: Vital Signs Temp 97.9 F 09/06/21 08:00 Pulse 101 H 09/06/21 10:00 Resp 21 09/06/21 10:00 BP 152/69 09/06/21 10:00 Pulse Ox 97 09/06/21 10:00 Intake & Output 09/05/21 09/06/21 09/06/21 18:59 06:59 18:59 Intake Total 60 203.1 20 Output Total 0 0 0 Balance 60 203.1 20 Weight 73.255 kg 74.3 kg Intake: IV 60 60 20 0.9 kvo 60 60 20 Intake, IV Titration 143.1 Amount Clevidipine Butyrate 25 143.1 mg In Empty Bag 1 bag @ 1 MG/HR 2 mls/hr IV .Q24H [facility] Rx#:[id number] Output: Urine 0 0 0 Other: Voiding Method Diaper Diaper Diaper CAPD CAPD CAPD Patient was not examined physically. Discussed with the nursing staff has minimal edema - Labs CBC & Chem 7: 09/04/21 04:04 09/06/21 04:36 Labs: Abnormal Lab Results - Last 24 Hours (Table) 09/05/21 09/05/21 09/05/21 Range/Units 13:44 18:37 20:44 Sodium 123 L (137-145) mmol/L Potassium (3.5-5.1) mmol/L Chloride (98-107) mmol/L BUN (9-20) mg/dL Creatinine (0.66-1.25) mg/dL Glucose (74-99) mg/dL POC Glucose (mg/dL) 103 H 214 H (75-99) mg/dL Calcium (8.4-10.2) mg/dL Troponin I (0.000-0.034) ng/mL 09/06/21 09/06/21 09/06/21 Range/Units 00:01 04:36 04:36 Sodium 122 L (137-145) mmol/L Potassium 3.3 L (3.5-5.1) mmol/L Chloride 91 L (98-107) mmol/L BUN 73 H (9-20) mg/dL Creatinine 6.28 H (0.66-1.25) mg/dL Glucose 301 H (74-99) mg/dL POC Glucose (mg/dL) 298 H (75-99) mg/dL Calcium 7.5 L (8.4-10.2) mg/dL Troponin I 0.085 H* (0.000-0.034) ng/mL 09/06/21 Range/Units 06:36 Sodium (137-145) mmol/L Potassium (3.5-5.1) mmol/L Chloride (98-107) mmol/L BUN (9-20) mg/dL Creatinine (0.66-1.25) mg/dL Glucose (74-99) mg/dL POC Glucose (mg/dL) 328 H (75-99) mg/dL Calcium (8.4-10.2) mg/dL Troponin I (0.000-0.034) ng/mL Microbiology - Last 24 Hours (Table) 09/02/21 20:48 Blood Culture - Preliminary Blood No Growth after 72 hours 09/02/21 20:48 Blood Culture - Preliminary Blood No Growth after 72 hours Assessment and Plan Assessment: Respiratory 1. ESRD on dialysis with 1.5% 2000 mL 4 exchanges, negative balance of thousand cc over the last 4 exchanges 2. Admitted with severe hyponatremia improved on 3% saline ,, etiology is excess oral free water And Additionally volume depletion possibly it 3. COVID pneumonia was stable 4.. Mild hypokalemia secondary to poor intak. 5. Calcium phosphorus target Recommendation 1. Increase salt intake in his food 2. Maintain 1.5% 2000 mL 4 exchanges. 3. Restrict oral intake thousand cc
[2021-09-06] MEDS ORDERED: PARENTERAL ELECTROLYTES IV SCH ×6 (12:00)
[2021-09-06] MEDS ORDERED: [UNRECOGNIZED DRUG - OTHER] IV SCH ×6 (12:00)
[2021-09-06] MEDS ORDERED: SODIUM CHLORIDE IV SCH ×6 (12:00)
--- NOTE | 2021-09-06 13:19 | P.PN ---
Subjective Progress Note Date: 09/06/21 Patient was seen for a follow-up by Teleneurology today on 09/06/2021. Patient is doing much better. His sodium has improved to 125. Patient is alert and oriented 3. He is more relaxed, comfortable. Patient denies any headache, no dizziness. Patient yesterday sat by the bedside. Today the therapy will try to have him walk. Patient offers no complaints. Objective - Vital Signs Vital signs: Vital Signs Temp 97.9 F 09/06/21 08:00 Pulse 92 09/06/21 09:00 Resp 23 09/06/21 09:00 BP 157/74 09/06/21 09:00 Pulse Ox 94 L 09/06/21 09:00 Intake & Output 09/05/21 09/06/21 09/06/21 18:59 06:59 18:59 Intake Total 60 203.1 15 Output Total 0 0 0 Balance 60 203.1 15 Weight 73.255 kg 74.3 kg Intake: IV 60 60 15 0.9 kvo 60 60 15 Intake, IV Titration 143.1 Amount Clevidipine Butyrate 25 143.1 mg In Empty Bag 1 bag @ 1 MG/HR 2 mls/hr IV .Q24H [facility] Rx#:[id number] Output: Urine 0 0 0 Other: Voiding Method Diaper Diaper Diaper CAPD CAPD CAPD - Exam Patient is alert and well-oriented. He could not tell the month, but he knows name of the current president, year and the city state. Face is symmetric. Patient's mentation is normal. Muscle strength is normal. - Labs CBC & Chem 7: 09/04/21 04:04 09/06/21 04:36 Labs: Abnormal Lab Results - Last 24 Hours (Table) 09/05/21 09/05/21 09/05/21 Range/Units 10:26 13:44 18:37 Sodium 125 L (137-145) mmol/L Potassium (3.5-5.1) mmol/L Chloride (98-107) mmol/L BUN (9-20) mg/dL Creatinine (0.66-1.25) mg/dL Glucose (74-99) mg/dL POC Glucose (mg/dL) 103 H 214 H (75-99) mg/dL Calcium (8.4-10.2) mg/dL Troponin I (0.000-0.034) ng/mL 09/05/21 09/06/21 09/06/21 Range/Units 20:44 00:01 04:36 Sodium 123 L 122 L (137-145) mmol/L Potassium 3.3 L (3.5-5.1) mmol/L Chloride 91 L (98-107) mmol/L BUN 73 H (9-20) mg/dL Creatinine 6.28 H (0.66-1.25) mg/dL Glucose 301 H (74-99) mg/dL POC Glucose (mg/dL) 298 H (75-99) mg/dL Calcium 7.5 L (8.4-10.2) mg/dL Troponin I (0.000-0.034) ng/mL 09/06/21 09/06/21 Range/Units 04:36 06:36 Sodium (137-145) mmol/L Potassium (3.5-5.1) mmol/L Chloride (98-107) mmol/L BUN (9-20) mg/dL Creatinine (0.66-1.25) mg/dL Glucose (74-99) mg/dL POC Glucose (mg/dL) 328 H (75-99) mg/dL Calcium (8.4-10.2) mg/dL Troponin I 0.085 H* (0.000-0.034) ng/mL Microbiology - Last 24 Hours (Table) 09/02/21 20:48 Blood Culture - Preliminary Blood No Growth after 72 hours 09/02/21 20:48 Blood Culture - Preliminary Blood No Growth after 72 hours Assessment and Plan Assessment: * Altered mental status, likely due to toxic metabolic encephalopathy, now mostly seems to have resolved. * Severe hyponatremia, much improved * Covid-19 related pneumonia * Renal failure, on peritoneal dialysis * Accelerated hypertension, some component of hypertensive encephalopathy. Blood pressure on arrival was 245/105. * Hypertension * Diabetes * Coronary artery disease Plan: * Patient's mentation has markedly improved. Physically also much improved. No other neurological workup indicated. * EEG 09/04/2021 revealed mild to moderate background slowing consistent with encephalopathy. No epileptiform activity was seen. * Patient's sodium has improved 116 today. Current BUN is 80, creatinine 7.57. * Medical management as per IM, ICU. * Neurologically clear. We will sign off. Please reconsult if any questions.
[2021-09-06] MEDS: hydrALAZINE HCL 20 MG/ML 1 ML VIAL IVP PRN ×2 (13:48→18:06)
[2021-09-06] MEDS: ASPIRIN 81 MG PO SCH (14:24)
[2021-09-06 14:28] LABS: Glucose,Whole Blood 266 mg/dL (75-99)
[2021-09-06] MEDS: [UNRECOGNIZED DRUG - OTHER] IV SCH ×6 (17:21)
[2021-09-06 17:36] LABS: Glucose,Whole Blood 254 mg/dL (75-99)
[2021-09-06] MEDS: NITROGLYCERIN OINT 1 INCH/GM PACKET TOPICAL SCH ×2 (17:57→23:07)
--- NOTE | 2021-09-06 23:16 | P.PN ---
Subjective This is a pleasant 76 years old male with past medical history of Heart Failure, Diabetes Mellitus, renal disease on peritoneal Dialysis, Hypertension, history of Coronary Bypass/CABG, Patient presents because of abdominal pain per emergency room Note however patient found to have be confused with hypernatremia His sodium on admission was 104, earlier this morning was 108 and ended in weight respectively. patient currently remains in the ICU confused, does not follow commands, he is also on restraints. He denies any chest pain or abdominal pain. His abdomen looks soft and there is dialysis to running out of his left lower quadrant of abdomen, not connected to anything. His abdomen is soft with no tenderness or guarding. No rebound tenderness he moves all extremities equally. Patient is poor historian On admission he is afebrile, his breathing rate around 11, blood pressure 174/96 and he is saturating 95% on room air. WBC 6.9 and 13.3. Rest of CBC is unremarkable. Sodium on admission was low at 104, currently is 108. Unknown baseline. Creatinine elevated 7.3. Troponin is elevated at 0.05 Urine analysis is showing 2+ protein, 2+ glucose. Hamilton v. is detected CT of the abdomen and pelvis with no contrast: Sigmoid diverticulosis without diverticulitis. Atherosclerotic vascular disease. None obstructing large calculus right renal pelvis In the emergency room patient received Protonix, pain medication Nephrology and ice team were consulted already 09/04/2021 Patient is confused and sleepy, does not follow command. Sitter at bedside. His metabolic encephalopathy most likely secondary to hypernatremia. Neurologist on the case. EKG and CT of the brain are pending. He is not in respiratory distress and abdomen is soft. Distal on 3% normal saline at 20 ml/h. Also he was started on calviprex her blood pressure was elevated last night 194/85. Sodium today improved 214. Echocardiogram showed ejection fraction of 55-60% with moderate aortic stenosis Patient continued to 3% NS, calviprex DRIP, multiple vitamins and dexamethasone. Also he is on subcutaneous heparin for DVT prophylaxis 09/05/2021 Patient today is awake and alert and oriented to place, he knows he is [facility] [place] but he still disoriented to time person. He follows commands approp riately. He denies any specific complaints. Improved. 125 and 3% saline was discontinued and patient was started on TPN pending swallow evaluation. Blood pressure is a stable while he is still on Calviprex drip, last blood pressure 150/71. He remains on dexamethasone, multiple vitamins forego with infection but he is saturating 95 % on 2 L/m of oxygen. We'll keep monitoring sodium 09/06/2021 Patient mentation keeps improving, neurology signed off, sodium is 122 and nephrology of the case recommended to increase salt intake with food. This morning he was complaining of from burning chest pain with markedly elevated troponin in view of his kidney disease. Echocardiogram area was with no hypokinesia but he has ejection fraction of 55-60% with moderate aortic stenosis, DrAdán office today and was admitted for uncontrolled blood pressure with systolic or than 190 also he is on Norvasc 10 mg on Coreg 25 mg and hydralazine when necessary. Blood pressure improved through the day systolic down to 160s. Cardiology team consulted. Patient remains on dexamethasone, multiple vitamins, calviprex drip Objective - Vital Signs Vital signs: Vital Signs Temp 97.9 F 09/06/21 08:00 Pulse 84 09/06/21 14:00 Resp 12 09/06/21 14:00 BP 198/83 09/06/21 14:00 Pulse Ox 95 09/06/21 14:00 Intake & Output 09/05/21 09/06/21 09/06/21 18:59 06:59 18:59 Intake Total 160 203.1 77.6 Output Total 0 0 0 Balance 160 203.1 77.6 Weight 73.255 kg 74.3 kg Intake: IV 60 60 40 0.9 kvo 60 60 40 Intake, IV Titration 100 143.1 37.6 Amount Clevidipine Butyrate 25 143.1 37.6 mg In Empty Bag 1 bag @ 1 MG/HR 2 mls/hr IV .Q24H [facility] Rx#:[id number] Dexmedetomidine/0.9% NaCl 100 (Pmx) 400 mcg In Empty Bag 1 bag @ 0.2 MCG/KG/HR 3.18 mls/hr IV .Q24H [facility] Rx#:[id number] Output: Urine 0 0 0 Other: Voiding Method Diaper Diaper Diaper CAPD CAPD CAPD - Exam -GENERAL: The patient is sleepy, not in any acute distress. Well developed, well nourished. HEENT: Pupils are round and equally reacting to light. EOMI. No scleral icterus. No conjunctival pallor. Normocephalic, atraumatic. No pharyngeal erythema. No thyromegaly. CARDIOVASCULAR: S1 and S2 present. No murmurs, rubs, or gallops. PULMONARY: Chest is clear to auscultation, no wheezing or crackles. -ABDOMEN: Soft, nontender, nondistended, normoactive bowel sounds. No palpable organomegaly. Peritoneal tube from the left lower quadrant, not connected MUSCULOSKELETAL: No joint swelling or deformity. EXTREMITIES: No cyanosis, clubbing, or pedal edema. NEUROLOGICAL: Gross neurological examination did not reveal any focal deficits. SKIN: No rashes. no petechiae. - Labs CBC & Chem 7: 09/04/21 04:04 09/06/21 04:36 Labs: Abnormal Lab Results - Last 24 Hours (Table) 09/05/21 09/05/21 09/06/21 Range/Units 18:37 20:44 00:01 Sodium 123 L (137-145) mmol/L Potassium (3.5-5.1) mmol/L Chloride (98-107) mmol/L BUN (9-20) mg/dL Creatinine (0.66-1.25) mg/dL Glucose (74-99) mg/dL POC Glucose (mg/dL) 214 H 298 H (75-99) mg/dL Calcium (8.4-10.2) mg/dL Troponin I (0.000-0.034) ng/mL 09/06/21 09/06/21 09/06/21 Range/Units 04:36 04:36 06:36 Sodium 122 L (137-145) mmol/L Potassium 3.3 L (3.5-5.1) mmol/L Chloride 91 L (98-107) mmol/L BUN 73 H (9-20) mg/dL Creatinine 6.28 H (0.66-1.25) mg/dL Glucose 301 H (74-99) mg/dL POC Glucose (mg/dL) 328 H (75-99) mg/dL Calcium 7.5 L (8.4-10.2) mg/dL Troponin I 0.085 H* (0.000-0.034) ng/mL 09/06/21 Range/Units 14:26 Sodium (137-145) mmol/L Potassium (3.5-5.1) mmol/L Chloride (98-107) mmol/L BUN (9-20) mg/dL Creatinine (0.66-1.25) mg/dL Glucose (74-99) mg/dL POC Glucose (mg/dL) 266 H (75-99) mg/dL Calcium (8.4-10.2) mg/dL Troponin I (0.000-0.034) ng/mL Microbiology - Last 24 Hours (Table) 09/02/21 20:48 Blood Culture - Preliminary Blood No Growth after 72 hours 09/02/21 20:48 Blood Culture - Preliminary Blood No Growth after 72 hours Assessment and Plan Assessment: severe hyponatremia Altered mental status, most likely metabolic encephalopathy secondary to hyponatremia Covid infection with no hypoxia Chest pain Diabetes mellitus Chronic heart failure Hypertension Elevated troponin History of coronary artery disease status post CABG History of renal disease on dialysis Right kidney stone Plan: This is a pleasant 76 years old male who presents with hypernatremia Keep monitor sodium closely. Stop 3% saline . Continue with peritoneal dialysis. Nephrology team recommendation Critical team consult Neurology on the case. Serial troponin and cardiology consult Continue with TPN. Swallow evaluation Labs and medication were reviewed.. Continue same treatment. Continue with symptomatic treatment. Resume home medication. Monitor lytes and vitals. DVT and GI prophylaxis. Further recommendations depends on the clinical course of the patient DVT prophylaxis: Subcutaneous heparin GI Prophylaxis: Ppi Prognosis is guarded
[2021-09-06 23:34] LABS: Glucose,Whole Blood 232 mg/dL (75-99)
[2021-09-07] MEDS: hydrALAZINE HCL 20 MG/ML 1 ML VIAL IVP PRN (00:17)
[2021-09-07] MEDS: INSULIN ASPART (NovoLOG) 100 UNIT/ML VIAL SQ SCH ×4 (00:19→17:33)
[2021-09-07] MEDS: SODIUM CHLORIDE IV SCH ×12 (03:54→16:06)
[2021-09-07] MEDS: PARENTERAL ELECTROLYTES IV SCH ×12 (03:54→16:06)
[2021-09-07] MEDS: [UNRECOGNIZED DRUG - OTHER] IV SCH ×6 (03:54)
[2021-09-07] MEDS: DIALYSIS (PERIT 1.5%) 2,000 ML 30 G/2,000 ML BAG INTRAPERIT SCH ×3 (05:14→18:00)
[2021-09-07] MEDS: NITROGLYCERIN OINT 1 INCH/GM PACKET TOPICAL SCH ×3 (05:14→17:32)
[2021-09-07 05:26] LABS: Albumin 2.2 g/dL (3.5-5.0); Potassium 3.7 mmol/L (3.5-5.1); Total Bilirubin 0.4 mg/dL (0.2-1.3); Total Protein 4.7 g/dL (6.3-8.2)
[2021-09-07 05:28] LABS: Glucose,Whole Blood 279 mg/dL (75-99)
[2021-09-07 05:53] LABS: Phosphorus 3.2 mg/dL (2.5-4.5)
[2021-09-07] MEDS: ASCORBIC ACID 500 MG TAB PO SCH (08:02)
[2021-09-07] MEDS: PANTOPRAZOLE 40 MG/10 ML VIAL IV SCH (08:02)
[2021-09-07] MEDS: amLODIPine 10 MG TAB PO SCH (08:02)
[2021-09-07] MEDS: carvediloL 12.5 MG TAB PO SCH ×2 (08:02→17:32)
[2021-09-07] MEDS: ASPIRIN 81 MG PO SCH (08:02)
[2021-09-07] MEDS: CHOLECALCIFEROL 25 MCG (1000 IU) TABLET PO SCH (08:02)
[2021-09-07] MEDS: DEXAMETHASONE SOD PHOSPHATE 10 MG/ML 1 ML VIAL IVP SCH (08:03)
[2021-09-07] MEDS: CALCIUM ACETATE 667 MG TAB PO SCH ×3 (08:03→17:33)
[2021-09-07] MEDS: HEPARIN SODIUM,PORCINE/PF 5,000 UNIT/0.5 ML SYRINGE SQ SCH ×2 (08:03→21:59)
--- NOTE | 2021-09-07 11:02 | P.PN ---
Subjective Progress Note Date: 09/07/21 Principal diagnosis: This is a 76-year-old male, known to us with ESRD on peritoneal dialysis who came in with mental status confusion and hyponatremia sodium was 104. He was also noted to have COVID pneumonia. Patient is awake alert oriented 3 able to recall all the details of his previous illnesses. He has poor appetite but currently is on TPN via peripheral IV He is on 1.5% 2000 mL 4 exchanges in the last 4 exchanges have ultrafiltrate 1300 mL. Currently on TPN at 75 mL an hour He is known with diabetes status post coronary artery bypass graft Objective - Vital Signs Vital signs: Vital Signs Temp 98.4 F 09/07/21 08:00 Pulse 75 09/07/21 08:00 Resp 16 09/07/21 08:00 BP 151/74 09/07/21 08:00 Pulse Ox 96 09/07/21 08:00 Intake & Output 09/06/21 09/07/21 09/07/21 18:59 06:59 18:59 Intake Total 97.6 105 Output Total 0 0 Balance 97.6 105 Weight 76.7 kg Intake: IV 60 55 0.9 kvo 60 55 Intake, IV Titration 37.6 Amount Clevidipine Butyrate 25 37.6 mg In Empty Bag 1 bag @ 1 MG/HR 2 mls/hr IV .Q24H [facility] Rx#:[id number] Oral 50 Output: Urine 0 0 Other: Voiding Method Diaper Diaper CAPD CAPD CAPD Awake alert oriented 3 Able to move all his extremities fairly well HEENT exam no JVP neck is supple no facial asymmetry Lungs clear to auscultation good air entry bilaterally Heart sounds are remarkable for a grade 1-2 systolic ejection murmur Abdomen soft nontender PD exit site is dressed but it looks clean Extremity exam was no edema Neurologically awake alert oriented. Able to move all his extremities - Labs CBC & Chem 7: 09/04/21 04:04 09/07/21 04:52 Labs: Abnormal Lab Results - Last 24 Hours (Table) 09/06/21 09/06/21 09/06/21 Range/Units 13:43 14:26 17:34 Sodium (137-145) mmol/L Chloride (98-107) mmol/L BUN (9-20) mg/dL Creatinine (0.66-1.25) mg/dL Glucose (74-99) mg/dL POC Glucose (mg/dL) 266 H 254 H (75-99) mg/dL Calcium (8.4-10.2) mg/dL Troponin I 0.081 H* (0.000-0.034) ng/mL Total Protein (6.3-8.2) g/dL Albumin (3.5-5.0) g/dL 09/06/21 09/07/21 09/07/21 Range/Units 23:33 04:52 05:26 Sodium 122 L (137-145) mmol/L Chloride 92 L (98-107) mmol/L BUN 79 H (9-20) mg/dL Creatinine 6.42 H (0.66-1.25) mg/dL Glucose 239 H (74-99) mg/dL POC Glucose (mg/dL) 232 H 279 H (75-99) mg/dL Calcium 8.0 L (8.4-10.2) mg/dL Troponin I (0.000-0.034) ng/mL Total Protein 4.7 L (6.3-8.2) g/dL Albumin 2.2 L (3.5-5.0) g/dL Microbiology - Last 24 Hours (Table) 09/02/21 20:48 Blood Culture - Preliminary Blood No Growth after 96 hours 09/02/21 20:48 Blood Culture - Preliminary Blood No Growth after 96 hours 09/03/21 13:20 Gram Stain - Preliminary Peritoneal Fluid Body Fluid Culture - Preliminary Assessment and Plan Assessment: Respiratory 1. ESRD on dialysis with 1.5% 2000 mL 4 exchanges, negative balance of 1300 mL over the last 4 exchanges 2. Admitted with severe hyponatremia improved on 3% saline. Off off 3%, etiology is excess oral free water And Additionally volume depletion and currently hyponatremia is improved to 122 sodium 3. COVID pneumonia was stable 4.. Mild hypokalemia secondary to poor intak. corrected to 3.7 5. Calcium phosphorus at target Recommendation 1. Increase salt intake in his food 2. Maintain 1.5% 2000 mL 4 exchanges. 3. start oral intake and taper TPN
--- NOTE | 2021-09-07 12:12 | CONS ---
CONSULTATION This is a 76-year-old gentleman who has been admitted to the hospital with episodes of what seems to be shortness of breath. He was admitted on 09/02/2021. He has multiple medical problems in the form of end-stage renal disease, on peritoneal dialysis, hypertension, hyperlipidemia, and CAD with a prior bypass surgery, details of which are not available. I was asked to see him today because of mild elevation in troponin. The troponin profile does not suggest myocardial injury. Patient has end-stage renal disease and the troponin levels are 0.08 and 0.08 respectively, and this in the light of his end-stage renal disease is considered unremarkable, not suggestive of myocardial injury. 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 From a cardiac standpoint, he does not seem to have any evidence of active myocardial injury at this time. I am suggesting that we will pursue current medical therapy for his CAD. He has also severe hyponatremia, which seems to have improved. Sodium was 105; now it is up to 122. He also had an echocardiogram which revealed fairly well preserved systolic function with mild aortic stenosis. Peak gradient is about 32 mmHg. Ejection fraction is normal. There is also some calcification of the mitral valve without significant stenosis. IMPRESSION: 1. Elevated troponin, not suggestive of myocardial injury. 2. History of coronary artery disease with prior bypass surgery. 3. Mild to moderate aortic stenosis. 4. Hyponatremia, which has improved. 5. COVID pneumonia. RECOMMENDATIONS: No aggressive intervention from a cardiac standpoint. We will see the patient as needed, and upon discharge we will be following up with him in the office. Thank you very much for the consult. MMODL / IJN: [id number] /
[2021-09-07 12:24] LABS: Glucose,Whole Blood 287 mg/dL (75-99)
--- NOTE | 2021-09-07 14:10 | P.PN ---
Subjective Progress Note Date: 09/07/21 Principal diagnosis: Severe hyponatremia, acute metabolic encephalopathy This is a 76-year-old white male with history of multiple medical problems including end-stage renal disease, on peritoneal dialysis, known history of diabetes, congestive heart failure, coronary artery disease and previous CABG, patient presented to the ER yesterday with 1 day history of abdominal pain. Patient was also noted to be quite confused, workup included a CT of the abdomen and pelvis which came back negative. However his labs were quite abnormal, and his sodium was noted to be 104. The patient himself is a very poor historian, could not get any information from the patient seems to be extremely confused. Patient was also noted to have abnormal renal profile with a BUN of 79 creatini ne of 7.34, and he had positive PCR for COVID-19 infection. No chest x-ray was done in the ER, hence short the after I evaluated the patient, chest x-ray was ordered. The meantime the patient is on room air, his O2 sats was 92-97% on room air. Is afebrile, blood pressure is elevated at 149/96. Upon admission and when I was notified about this patient last night, his PCR for COVID-19 was pending. And I recommended starting the patient on slow infusion of 3% saline and slow correction of his hyponatremia. This morning repeat sodium is 108. Nephrology is yet to see the patient today regarding his chronic renal failure/peritoneal dialysis, and regarding his profound and severe hyponatremia. Chest x-ray showed scattered bilateral infiltrates peripherally and at the bases mostly. Clinically, the patient looks euvolemic, no history to suggest nausea vomiting diarrhea. Patient was reevaluated today on 09/04/2021, patient remains in the ICU, remains on 3% saline for profound hyponatremia, his sodium is correcting slowly. He was seen by nephrology, and the plan is to discontinue 3% later on today. It is running at 20 mL per hour. Patient developed significant hypertension yesterday and agitation, placed on Precedex and he was also placed on clevidipine extra. His blood pressure today seems to be better controlled. However the patient still requires Precedex. Seems to be calm, patient is undergoing peritoneal dialysis. Today I recommended a PICC line and possibly starting the patient on TPN. Nurse tried to put a nasogastric tube in this patient, however he was extremely agitated and he kept pulling it out. I believe the best mode of nutrition for this patient at this point would have to be TPN. Sodium today is up to 116, patient presented initially with a sodium of 104. CBC is relatively normal renal profile is abnormal with a BUN of 80 creatinine 7.57, patient is on peritoneal dialysis. Pulmonary-wilburn, patient is on a couple of liters of oxygen, not in distress, although the patient did have positive PCR for COVID-19 infection, and his chest x-ray on admission showed multifocal opacities consistent with COVID-19 pneumonia The patient is seen today 09/05/2029 in follow-up in the intensive care unit. He was quite a bit more awake and alert today compared to yesterday. He is oriented 2. He is maintaining O2 saturations in the 90s on 2 L/m per nasal cannula. He is receiving peritoneal dialysis every 6 hours. He is currently on 3% normal saline at 35 ML's per hour. Precedex at 0.8 mcgkg/hr. Clevidipine at 2 mg per hour. He is receiving TPN for nourishment at 30 MLS per hour to be increased to 75 ML's. Peritoneal fluid cultures are pending. Blood cultures reveal no growth to date. Current sodium is 119. Potassium 3.1. Chloride 89. Bicarb 23. BUN 73. Creatinine 6.81. Glucose 292. He is remaining in sinus rhythm. Swallow evaluation pending. The patient is seen today 09/06/2021 in follow-up in the intensive care unit. He is currently alert and oriented 3. He is maintaining O2 saturations in the mid 90s on 2 L/m per nasal cannula. Afebrile. He is doing quite well. He is swallowing well. He remains on clevidipine at 8 mg per hour. He's been off the Precedex about 24 hours now. His sodium is 122. Potassium 3.3. BUN 73. Creatinine 6.28. Glucose 301. Calcium 7.5. He remains on Decadron. Heparin for DVT prophylaxis. Remains on TPN and lipids for nutritional support. The patient is seen today 09/07/2021 in follow-up in the intensive care unit. He is currently sitting up in a chair at the bedside. Awake and alert in no acute distress. He is maintaining good O2 saturations in the 90s on room air. He remains on TPN for nutritional support at 75 ML's per hour. No IV fluids. Blood cultures reveal no growth to date. Peritoneal fluid cultures pending. Current sodium 122. Potassium 3.7. Creatinine 6.42. Glucose 239. He remains on Decadron, vitamin supplements, heparin for DVT prophylaxis. Objective - Vital Signs Vital signs: Vital Signs Temp 98.4 F 09/07/21 08:00 Pulse 76 09/07/21 12:43 Resp 14 09/07/21 12:43 BP 155/73 09/07/21 12:43 Pulse Ox 96 09/07/21 12:43 Intake & Output 09/06/21 09/07/21 09/07/21 18:59 06:59 18:59 Intake Total 97.6 105 Output Total 0 0 Balance 97.6 105 Weight 76.7 kg Intake: IV 60 55 0.9 kvo 60 55 Intake, IV Titration 37.6 Amount Clevidipine Butyrate 25 37.6 mg In Empty Bag 1 bag @ 1 MG/HR 2 mls/hr IV .Q24H [facility] Rx#:[id number] Oral 50 Output: Urine 0 0 Other: Voiding Method Diaper Diaper CAPD CAPD CAPD - Exam GENERAL EXAM: Alert, oriented 3, 76-year-old male patient, on room air, comfortable in no apparent distress. HEAD: Normocephalic. EYES: Normal reaction of pupils, equal size. NOSE: Clear with pink turbinates. THROAT: No erythema or exudates. NECK: No masses, no JVD. CHEST: No chest wall deformity. LUNGS: Equal air entry with faint crackles in the posterior bases. CVS: S1 and S2 normal with no audible murmur, regular rhythm. ABDOMEN: Peritoneal catheter exit site is clean and dry. No hepatosplenomegaly, normal bowel sounds, no guarding or rigidity. SPINE: No scoliosis or deformity SKIN: No rashes CENTRAL NERVOUS SYSTEM: No focal deficits, tone is normal in all 4 extremities. EXTREMITIES: PICC line to the left upper extremity There is no peripheral edema. No clubbing, no cyanosis. Peripheral pulses are intact. - Labs CBC & Chem 7: 09/04/21 04:04 09/07/21 04:52 Labs: Abnormal Lab Results - Last 24 Hours (Table) 09/06/21 09/06/2109/06/21 Range/Units 13:43 14:26 17:34 Sodium (137-145) mmol/L Chloride (98-107) mmol/L BUN (9-20) mg/dL Creatinine (0.66-1.25) mg/dL Glucose (74-99) mg/dL POC Glucose (mg/dL) 266 H 254 H (75-99) mg/dL Calcium (8.4-10.2) mg/dL Troponin I 0.081 H* (0.000-0.034) ng/mL Total Protein (6.3-8.2) g/dL Albumin (3.5-5.0) g/dL 09/06/21 09/07/21 09/07/21 Range/Units 23:33 04:52 05:26 Sodium 122 L (137-145) mmol/L Chloride 92 L (98-107) mmol/L BUN 79 H (9-20) mg/dL Creatinine 6.42 H (0.66-1.25) mg/dL Glucose 239 H (74-99) mg/dL POC Glucose (mg/dL) 232 H 279 H (75-99) mg/dL Calcium 8.0 L (8.4-10.2) mg/dL Troponin I (0.000-0.034) ng/mL Total Protein 4.7 L (6.3-8.2) g/dL Albumin 2.2 L (3.5-5.0) g/dL 09/07/21 Range/Units 12:22 Sodium (137-145) mmol/L Chloride (98-107) mmol/L BUN (9-20) mg/dL Creatinine (0.66-1.25) mg/dL Glucose (74-99) mg/dL POC Glucose (mg/dL) 287 H (75-99) mg/dL Calcium (8.4-10.2) mg/dL Troponin I (0.000-0.034) ng/mL Total Protein (6.3-8.2) g/dL Albumin (3.5-5.0) g/dL Microbiology - Last 24 Hours (Table) 09/02/21 20:48 Blood Culture - Preliminary Blood No Growth after 96 hours 09/02/21 20:48 Blood Culture - Preliminary Blood No Growth after 96 hours 09/03/21 13:20 Gram Stain - Preliminary Peritoneal Fluid Body Fluid Culture - Preliminary Assessment and Plan Assessment: 1 Altered mental status secondary to severe hypovolemic hyponatremia, , improved. Alert and oriented 3 today. Sodium 122. 2 Acute COVID-19 Infection, no significant pulmonary involvement. On room air. 3 Chronic renal failure, on peritoneal dialysis 4 History of coronary disease with previous coronary artery bypass grafting 5 Diabetes mellitus 6 Hypertension Plan: The patient was seen and evaluated by Dr. Park Stable in on room air Initiate renal diet as tolerated Continue TPN for now Transfer to the regular medical floor without telemetry We will continue to follow I, the cosigning physician, performed a history & physical examination of the patient. Lungs sounds with crackles in the bilateral bases. Maintaining good O2 saturations in the 90s on room air. I discussed the assessment and plan of care with my nurse practitioner, Danae Saleh. I attest to the above note as dictated by her.
[2021-09-07] MEDS: [UNRECOGNIZED DRUG - OTHER] IV SCH ×6 (16:06)
[2021-09-07 17:04] LABS: Glucose,Whole Blood 365 mg/dL (75-99)
--- NOTE | 2021-09-07 20:00 | P.PN ---
Subjective This is a pleasant 76 years old male with past medical history of Heart Failure, Diabetes Mellitus, renal disease on peritoneal Dialysis, Hypertension, history of Coronary Bypass/CABG, Patient presents because of abdominal pain per emergency room Note however patient found to have be confused with hypernatremia His sodium on admission was 104, earlier this morning was 108 and ended in weight respectively. patient currently remains in the ICU confused, does not follow commands, he is also on restraints. He denies any chest pain or abdominal pain. His abdomen looks soft and there is dialysis to running out of his left lower quadrant of abdomen, not connected to anything. His abdomen is soft with no tenderness or guarding. No rebound tenderness he moves all extremities equally. Patient is poor historian On admission he is afebrile, his breathing rate around 11, blood pressure 174/96 and he is saturating 95% on room air. WBC 6.9 and 13.3. Rest of CBC is unremarkable. Sodium on admission was low at 104, currently is 108. Unknown baseline. Creatinine elevated 7.3. Troponin is elevated at 0.05 Urine analysis is showing 2+ protein, 2+ glucose. Hamilton v. is detected CT of the abdomen and pelvis with no contrast: Sigmoid diverticulosis without diverticulitis. Atherosclerotic vascular disease. None obstructing large calculus right renal pelvis In the emergency room patient received Protonix, pain medication Nephrology and ice team were consulted already 09/04/2021 Patient is confused and sleepy, does not follow command. Sitter at bedside. His metabolic encephalopathy most likely secondary to hypernatremia. Neurologist on the case. EKG and CT of the brain are pending. He is not in respiratory distress and abdomen is soft. Distal on 3% normal saline at 20 ml/h. Also he was started on calviprex her blood pressure was elevated last night 194/85. Sodium today improved 214. Echocardiogram showed ejection fraction of 55-60% with moderate aortic stenosis Patient continued to 3% NS, calviprex DRIP, multiple vitamins and dexamethasone. Also he is on subcutaneous heparin for DVT prophylaxis 09/05/2021 Patient today is awake and alert and oriented to place, he knows he is [facility] but he still disoriented to time person. He follows commands approp riately. He denies any specific complaints. Improved. 125 and 3% saline was discontinued and patient was started on TPN pending swallow evaluation. Blood pressure is a stable while he is still on Calviprex drip, last blood pressure 150/71. He remains on dexamethasone, multiple vitamins forego with infection but he is saturating 95 % on 2 L/m of oxygen. We'll keep monitoring sodium 09/06/2021 Patient mentation keeps improving, neurology signed off, sodium is 122 and nephrology of the case recommended to increase salt intake with food. This morning he was complaining of from burning chest pain with markedly elevated troponin in view of his kidney disease. Echocardiogram area was with no hypokinesia but he has ejection fraction of 55-60% with moderate aortic stenosis, DrAdán office today and was admitted for uncontrolled blood pressure with systolic or than 190 also he is on Norvasc 10 mg on Coreg 25 mg and hydralazine when necessary. Blood pressure improved through the day systolic down to 160s. Cardiology team consulted. Patient remains on dexamethasone, multiple vitamins, calviprex drip 09/07/2021 Patient mentation looks like at baseline. He is oriented to place only but not to time or person. He knows he is in [facility]. No chest pain. No other complaints. Blood pressure is slightly elevated 174/81, other vitals stable. Sodium is stable at 122 sodium bicarb tablets added by tire buster. A still on steroids and multiple vitamins Transferred to the general medical floor today Objective - Vital Signs Vital signs: Vital Signs Temp 98.4 F 09/07/21 08:00 Pulse 76 09/07/21 12:43 Resp 14 09/07/21 12:43 BP 155/73 09/07/21 12:43 Pulse Ox 96 09/07/21 12:43 Intake & Output 09/06/21 09/07/21 09/07/21 18:59 06:59 18:59 Intake Total 97.6 105 Output Total 0 0 Balance 97.6 105 Weight 76.7 kg Intake: IV 60 55 0.9 kvo 60 55 Intake, IV Titration 37.6 Amount Clevidipine Butyrate 25 37.6 mg In Empty Bag 1 bag @ 1 MG/HR 2 mls/hr IV .Q24H [facility] Rx#:[id number] Oral 50 Output: Urine 0 0 Other: Voiding Method Diaper Diaper CAPD CAPD CAPD - Exam -GENERAL: The patient is sleepy, not in any acute distress. Well developed, well nourished. HEENT: Pupils are round and equally reacting to light. EOMI. No scleral icterus. No conjunctival pallor. Normocephalic, atraumatic. No pharyngeal erythema. No thyromegaly. CARDIOVASCULAR: S1 and S2 present. No murmurs, rubs, or gallops. PULMONARY: Chest is clear to auscultation, no wheezing or crackles. -ABDOMEN: Soft, nontender, nondistended, normoactive bowel sounds. No palpable organomegaly. Peritoneal tube from the left lower quadrant, not connected MUSCULOSKELETAL: No joint swelling or deformity. EXTREMITIES: No cyanosis, clubbing, or pedal edema. NEUROLOGICAL: Gross neurological examination did not reveal any focal deficits. SKIN: No rashes. no petechiae. - Labs CBC & Chem 7: 09/04/21 04:04 09/07/21 04:52 Labs: Abnormal Lab Results - Last 24 Hours (Table) 09/06/21 09/06/21 09/06/21 Range/Units 13:43 14:26 17:34 Sodium (137-145) mmol/L Chloride (98-107) mmol/L BUN (9-20) mg/dL Creatinine (0.66-1.25) mg/dL Glucose (74-99) mg/dL POC Glucose (mg/dL) 266 H 254 H (75-99) mg/dL Calcium (8.4-10.2) mg/dL Troponin I 0.081 H* (0.000-0.034) ng/mL Total Protein (6.3-8.2) g/dL Albumin (3.5-5.0) g/dL 09/06/21 09/07/21 09/07/21 Range/Units 23:33 04:52 05:26 Sodium 122 L (137-145) mmol/L Chloride 92 L (98-107) mmol/L BUN 79 H (9-20) mg/dL Creatinine 6.42 H (0.66-1.25) mg/dL Glucose 239 H (74-99) mg/dL POC Glucose (mg/dL) 232 H 279 H (75-99) mg/dL Calcium 8.0 L (8.4-10.2) mg/dL Troponin I (0.000-0.034) ng/mL Total Protein 4.7 L (6.3-8.2) g/dL Albumin 2.2 L (3.5-5.0) g/dL 09/07/21 Range/Units 12:22 Sodium (137-145) mmol/L Chloride (98-107) mmol/L BUN (9-20) mg/dL Creatinine (0.66-1.25) mg/dL Glucose (74-99) mg/dL POC Glucose (mg/dL) 287 H (75-99) mg/dL Calcium (8.4-10.2) mg/dL Troponin I (0.000-0.034) ng/mL Total Protein (6.3-8.2) g/dL Albumin (3.5-5.0) g/dL Microbiology - Last 24 Hours (Table) 09/02/21 20:48 Blood Culture - Preliminary Blood No Growth after 96 hours 09/02/21 20:48 Blood Culture - Preliminary Blood No Growth after 96 hours 09/03/21 13:20 Gram Stain - Preliminary Peritoneal Fluid Body Fluid Culture - Preliminary Assessment and Plan Assessment: severe hyponatremia Altered mental status, most likely metabolic encephalopathy secondary to hyponatremia Covid infection with no hypoxia Chest pain Diabetes mellitus Chronic heart failure Hypertension Elevated troponin History of coronary artery disease status post CABG History of renal disease on dialysis Right kidney stone Plan: This is a pleasant 76 years old male who presents with hypernatremia Keep monitor sodium closely. Stop 3% saline . Continue with peritoneal dialysis. Nephrology team recommendation Critical team consult Neurology on the case. Serial troponin and cardiology consult Continue with TPN. Swallow evaluation Labs and medication were reviewed.. Continue same treatment. Continue with symptomatic treatment. Resume home medication. Monitor lytes and vitals. DVT and GI prophylaxis. Further recommendations depends on the clinical course of the patient DVT prophylaxis: Subcutaneous heparin GI Prophylaxis: Ppi Prognosis is guarded
[2021-09-07 20:24] LABS: Glucose,Whole Blood 454 mg/dL (75-99)
[2021-09-07] MEDS: SODIUM BICARBONATE TAB 650 MG TAB PO SCH (21:59)
[2021-09-08 00:07] LABS: Glucose,Whole Blood 443 mg/dL (75-99)
[2021-09-08] MEDS: DIALYSIS (PERIT 1.5%) 2,000 ML 30 G/2,000 ML BAG INTRAPERIT SCH (00:29)
[2021-09-08] MEDS: NITROGLYCERIN OINT 1 INCH/GM PACKET TOPICAL SCH ×5 (01:20→23:30)
[2021-09-08] MEDS ORDERED: INSULIN ASPART (NovoLOG) 100 UNIT/ML VIAL SQ ONE (02:03)
[2021-09-08] MEDS ORDERED: INSULIN DETEMIR (LEVEMIR) 100 UNIT/ML SYR SQ ONE ×2 (02:12→13:00)
[2021-09-08] MEDS: INSULIN ASPART (NovoLOG) 100 UNIT/ML VIAL SQ SCH ×5 (02:29→16:36)
[2021-09-08 06:08] LABS: Glucose,Whole Blood 433 mg/dL (75-99)
[2021-09-08] MEDS: PARENTERAL ELECTROLYTES IV SCH ×6 (06:09)
[2021-09-08] MEDS: [UNRECOGNIZED DRUG - OTHER] IV SCH ×6 (06:09)
[2021-09-08] MEDS: SODIUM CHLORIDE IV SCH ×6 (06:09)
[2021-09-08] MEDS ORDERED: INSULIN REGULAR BOLUS (FROM DRIP BAG) IV ONE (06:34)
[2021-09-08 07:43] LABS: Glucose,Whole Blood 380 mg/dL (75-99)
[2021-09-08] MEDS: INSULIN REGULAR 100 UNIT in SODIUM CHLORIDE 0.9% 100 ML IV SCH ×2 (07:46→21:46)
[2021-09-08] MEDS: CALCIUM ACETATE 667 MG TAB PO SCH ×3 (07:47→17:15)
[2021-09-08] MEDS: PANTOPRAZOLE 40 MG/10 ML VIAL IV SCH (07:47)
[2021-09-08] MEDS: DEXAMETHASONE SOD PHOSPHATE 10 MG/ML 1 ML VIAL IVP SCH (07:47)
[2021-09-08] MEDS: amLODIPine 10 MG TAB PO SCH (07:47)
[2021-09-08] MEDS: DOCUSATE 100 MG CAP PO SCH (07:48)
[2021-09-08] MEDS: ASPIRIN 81 MG PO SCH (07:48)
[2021-09-08] MEDS: HEPARIN SODIUM,PORCINE/PF 5,000 UNIT/0.5 ML SYRINGE SQ SCH ×2 (07:48→22:00)
[2021-09-08] MEDS: carvediloL 12.5 MG TAB PO SCH ×2 (07:48→17:15)
[2021-09-08] MEDS: SODIUM BICARBONATE TAB 650 MG TAB PO SCH ×2 (07:48→22:00)
[2021-09-08] MEDS: CHOLECALCIFEROL 25 MCG (1000 IU) TABLET PO SCH (07:48)
[2021-09-08] MEDS: ASCORBIC ACID 500 MG TAB PO SCH (07:48)
[2021-09-08] MEDS ORDERED: DIALYSIS (PERIT 1.5%) 2,000 ML 30 G/2,000 ML BAG INTRAPERIT SCH (08:00)
[2021-09-08 08:31] LABS: Glucose,Whole Blood 344 mg/dL (75-99)
[2021-09-08] MEDS ORDERED: FAT EMULSION 20% 500 ML in EMPTY BAG 1 BAG IV SCH (09:00)
[2021-09-08 09:02] LABS: ALT 22 U/L (4-49); AST 28 U/L (17-59); African American GFR (CKD) 9 (>60 ml/min/1.73 sqM); Albumin 2.1 g/dL (3.5-5.0); Albumin/Globulin Ratio 0.9; Alkaline Phosphatase 61 U/L (38-126); Anion Gap 6 mmol/L; Blood Urea Nitrogen 89 mg/dL (9-20); Calcium 8.4 mg/dL (8.4-10.2); Carbon Dioxide 24 mmol/L (22-30); Chloride 92 mmol/L (98-107); Globulin 2.4 g/dL; Glucose 364 mg/dL (74-99); Magnesium 2.1 mg/dL (1.6-2.3); Non-African American GFR(CKD) 8 (>60 ml/min/1.73 sqM); Phosphorus 2.3 mg/dL (2.5-4.5); Potassium 4.1 mmol/L (3.5-5.1); Sodium 122 mmol/L (137-145); Total Bilirubin 0.3 mg/dL (0.2-1.3); Total Protein 4.5 g/dL (6.3-8.2)
[2021-09-08 09:03] LABS: Glucose,Whole Blood 281 mg/dL (75-99)
[2021-09-08 09:30] LABS: Glucose,Whole Blood 234 mg/dL (75-99)
[2021-09-08 11:22] LABS: Glucose,Whole Blood 170 mg/dL (75-99)
[2021-09-08 11:56] LABS: Glucose,Whole Blood 181 mg/dL (75-99)
--- NOTE | 2021-09-08 12:54 | P.PN ---
Subjective This is a pleasant 76 years old male with past medical history of Heart Failure, Diabetes Mellitus, renal disease on peritoneal Dialysis, Hypertension, history of Coronary Bypass/CABG, Patient presents because of abdominal pain per emergency room Note however patient found to have be confused with hypernatremia His sodium on admission was 104, earlier this morning was 108 and ended in weight respectively. patient currently remains in the ICU confused, does not follow commands, he is also on restraints. He denies any chest pain or abdominal pain. His abdomen looks soft and there is dialysis to running out of his left lower quadrant of abdomen, not connected to anything. His abdomen is soft with no tenderness or guarding. No rebound tenderness he moves all extremities equally. Patient is poor historian On admission he is afebrile, his breathing rate around 11, blood pressure 174/96 and he is saturating 95% on room air. WBC 6.9 and 13.3. Rest of CBC is unremarkable. Sodium on admission was low at 104, currently is 108. Unknown baseline. Creatinine elevated 7.3. Troponin is elevated at 0.05 Urine analysis is showing 2+ protein, 2+ glucose. Hamilton v. is detected CT of the abdomen and pelvis with no contrast: Sigmoid diverticulosis without diverticulitis. Atherosclerotic vascular disease. None obstructing large calculus right renal pelvis In the emergency room patient received Protonix, pain medication Nephrology and ice team were consulted already 09/04/2021 Patient is confused and sleepy, does not follow command. Sitter at bedside. His metabolic encephalopathy most likely secondary to hypernatremia. Neurologist on the case. EKG and CT of the brain are pending. He is not in respiratory distress and abdomen is soft. Distal on 3% normal saline at 20 ml/h. Also he was started on calviprex her blood pressure was elevated last night 194/85. Sodium today improved 214. Echocardiogram showed ejection fraction of 55-60% with moderate aortic stenosis Patient continued to 3% NS, calviprex DRIP, multiple vitamins and dexamethasone. Also he is on subcutaneous heparin for DVT prophylaxis 09/05/2021 Patient today is awake and alert and oriented to place, he knows he is [facility] but he still disoriented to time person. He follows commands approp riately. He denies any specific complaints. Improved. 125 and 3% saline was discontinued and patient was started on TPN pending swallow evaluation. Blood pressure is a stable while he is still on Calviprex drip, last blood pressure 150/71. He remains on dexamethasone, multiple vitamins forego with infection but he is saturating 95 % on 2 L/m of oxygen. We'll keep monitoring sodium 09/06/2021 Patient mentation keeps improving, neurology signed off, sodium is 122 and nephrology of the case recommended to increase salt intake with food. This morning he was complaining of from burning chest pain with markedly elevated troponin in view of his kidney disease. Echocardiogram area was with no hypokinesia but he has ejection fraction of 55-60% with moderate aortic stenosis, DrAdán office today and was admitted for uncontrolled blood pressure with systolic or than 190 also he is on Norvasc 10 mg on Coreg 25 mg and hydralazine when necessary. Blood pressure improved through the day systolic down to 160s. Cardiology team consulted. Patient remains on dexamethasone, multiple vitamins, calviprex drip 09/07/2021 Patient mentation looks like at baseline. He is oriented to place only but not to time or person. He knows he is in [facility]. No chest pain. No other complaints. Blood pressure is slightly elevated 174/81, other vitals stable. Sodium is stable at 122 sodium bicarb tablets added by hotel clerk. A still on steroids and multiple vitamins Transferred to the general medical floor today 09/08/2021 Is awake and alert at baseline. He was asking when he can be discharged. He denies headache. No chest pain or dyspnea. He is hemodynamically stable. Blood pressure this morning was 126/62. Afebrile. Sodium from yesterday we will is 122. Sodium level today still pending. Glucose was elevated more than 300 and he was placed on insulin drip. Risks are 10 his Levemir 6012 units at home but at 15 units daily. Also he is on NovoLog 10 units with meals. He is still dexamethasone, multiple vitamins, Norvasc and Coreg 25 mg. I discussed the case with cardiology team and the recommend to keep the patient on aspirin Objective - Vital Signs Vital signs: Vital Signs Temp 98.5 F 09/08/21 10:00 Pulse 69 09/08/21 10:00 Resp 16 09/08/21 10:00 BP 126/62 09/08/21 10:00 Pulse Ox 93 L 09/08/21 10:00 Intake & Output 09/07/21 09/08/21 09/08/21 18:59 06:59 18:59 Intake Total 1039 54.035 Output Total 150 Balance 889 54.035 Intake: Intake, IV Titration 1039 54.035 Amount Insulin Regular 100 unit 54.035 In Sodium Chloride 0.9% 100 ml @ Titrate IV .Q0M [facility] Rx#:[id number] Parenteral Electrolytes 1039 20 ml Sodium Chloride 4Meq/ml Vial 24 meq Potassium Chloride 26 meq In Amino Acids 5 %/ Dextrose 20 % 1,000 ml @ 75 mls/hr IV .BY DURATION [facility] Rx#:[id number] Output: Urine 150 Other: Voiding Method CAPD - Exam -GENERAL: The patient is sleepy, not in any acute distress. Well developed, well nourished. HEENT: Pupils are round and equally reacting to light. EOMI. No scleral icterus. No conjunctival pallor. Normocephalic, atraumatic. No pharyngeal erythema. No thyromegaly. CARDIOVASCULAR: S1 and S2 present. No murmurs, rubs, or gallops. PULMONARY: Chest is clear to auscultation, no wheezing or crackles. -ABDOMEN: Soft, nontender, nondistended, normoactive bowel sounds. No palpable organomegaly. Peritoneal tube from the left lower quadrant, not connected MUSCULOSKELETAL: No joint swelling or deformity. EXTREMITIES: No cyanosis, clubbing, or pedal edema. NEUROLOGICAL: Gross neurological examination did not reveal any focal deficits. SKIN: No rashes. no petechiae. - Labs CBC & Chem 7: 09/04/21 04:04 09/08/21 07:38 Labs: Abnormal Lab Results - Last 24 Hours (Table) 09/07/21 09/07/21 09/07/21 Range/Units 12:22 17:03 20:22 Sodium (137-145) mmol/L Chloride (98-107) mmol/L BUN (9-20) mg/dL Creatinine (0.66-1.25) mg/dL Glucose (74-99) mg/dL POC Glucose (mg/dL) 287 H 365 H 454 H (75-99) mg/dL Phosphorus (2.5-4.5) mg/dL Total Protein (6.3-8.2) g/dL Albumin (3.5-5.0) g/dL 09/08/21 09/08/21 09/08/21 Range/Units 00:05 06:06 07:30 Sodium (137-145) mmol/L Chloride (98-107) mmol/L BUN (9-20) mg/dL Creatinine (0.66-1.25) mg/dL Glucose (74-99) mg/dL POC Glucose (mg/dL) 443 H 433 H 380 H (75-99) mg/dL Phosphorus (2.5-4.5) mg/dL Total Protein (6.3-8.2) g/dL Albumin (3.5-5.0) g/dL 09/08/21 09/08/21 09/08/21 Range/Units 07:38 08:29 09:02 Sodium 122 L (137-145) mmol/L Chloride 92 L (98-107) mmol/L BUN 89 H (9-20) mg/dL Creatinine 6.46 H (0.66-1.25) mg/dL Glucose 364 H (74-99) mg/dL POC Glucose (mg/dL) 344 H 281 H (75-99) mg/dL Phosphorus 2.3 L (2.5-4.5) mg/dL Total Protein 4.5 L (6.3-8.2) g/dL Albumin 2.1 L (3.5-5.0) g/dL 09/08/21 09/08/21 09/08/21 Range/Units 09:28 11:17 11:55 Sodium (137-145) mmol/L Chloride (98-107) mmol/L BUN (9-20) mg/dL Creatinine (0.66-1.25) mg/dL Glucose (74-99) mg/dL POC Glucose (mg/dL) 234 H 170 H 181 H (75-99) mg/dL Phosphorus (2.5-4.5) mg/dL Total Protein (6.3-8.2) g/dL Albumin (3.5-5.0) g/dL Microbiology - Last 24 Hours (Table) 09/02/21 20:48 Blood Culture - Preliminary Blood No Growth after 120 hours 09/02/21 20:48 Blood Culture - Preliminary Blood No Growth after 120 hours 09/03/21 13:20 Gram Stain - Final Peritoneal Fluid Body Fluid Culture - Final Escherichia coli Assessment and Plan Assessment: severe hyponatremia Altered mental status, most likely metabolic encephalopathy secondary to hyponatremia Covid infection with no hypoxia Chest pain Diabetes mellitus Chronic heart failure Hypertension Elevated troponin History of coronary artery disease status post CABG History of renal disease on dialysis Right kidney stone Plan: This is a pleasant 76 years old male who presents with hypernatremia Keep monitor sodium closely. Stop 3% saline . Continue with peritoneal dialysis. Nephrology team recommendation Critical team consult Neurology on the case. Serial troponin and cardiology consult Continue with TPN. Swallow evaluation Labs and medication were reviewed.. Continue same treatment. Continue with symptomatic treatment. Resume home medication. Monitor lytes and vitals. DVT and GI prophylaxis. Further recommendations depends on the clinical course of the patient DVT prophylaxis: Subcutaneous heparin GI Prophylaxis: Ppi Prognosis is guarded
--- NOTE | 2021-09-08 13:23 | P.PN ---
Subjective Patient is seen in follow-up for end-stage renal disease and hyponatremia. Sodium level stable. Blood sugars on the higher side. No problems with peritoneal dialysis. He is receiving TPN. Peritoneal fluid came back positive for ESBL E. coli. He denies any abdominal pain. No vomiting. Vital signs are stable. General: The patient appeared well nourished and normally developed. HEENT: Head exam is unremarkable. LUNGS: Breath sounds decreased. HEART: Rate and Rhythm are regular. ABDOMEN:, No distention. EXTREMITITES: No edema. Objective - Vital Signs Vital signs: Vital Signs Temp 98.5 F 09/08/21 10:00 Pulse 69 09/08/21 10:00 Resp 16 09/08/21 10:00 BP 126/62 09/08/21 10:00 Pulse Ox 93 L 09/08/21 10:00 Intake & Output 09/07/21 09/08/21 09/08/21 18:59 06:59 18:59 Intake Total 1039 54.035 Output Total 150 Balance 889 54.035 Intake: Intake, IV Titration 1039 54.035 Amount Insulin Regular 100 unit 54.035 In Sodium Chloride 0.9% 100 ml @ Titrate IV .Q0M [facility] Rx#:[id number] Parenteral Electrolytes 1039 20 ml Sodium Chloride 4Meq/ml Vial 24 meq Potassium Chloride 26 meq In Amino Acids 5 %/ Dextrose 20 % 1,000 ml @ 75 mls/hr IV .BY DURATION RAIN Rx#:[id number] Output: Urine 150 Other: Voiding Method CAPD - Labs CBC & Chem 7: 09/04/21 04:04 09/08/21 07:38 Labs: Abnormal Lab Results - Last 24 Hours (Table) 09/07/21 09/07/21 09/08/21 Range/Units 17:03 20:22 00:05 Sodium (137-145) mmol/L Chloride (98-107) mmol/L BUN (9-20) mg/dL Creatinine (0.66-1.25) mg/dL Glucose (74-99) mg/dL POC Glucose (mg/dL) 365 H 454 H 443 H (75-99) mg/dL Phosphorus (2.5-4.5) mg/dL Total Protein (6.3-8.2) g/dL Albumin (3.5-5.0) g/dL 09/08/21 09/08/21 09/08/21 Range/Units 06:06 07:30 07:38 Sodium 122 L (137-145) mmol/L Chloride 92 L (98-107) mmol/L BUN 89 H (9-20) mg/dL Creatinine 6.46 H (0.66-1.25) mg/dL Glucose 364 H (74-99) mg/dL POC Glucose (mg/dL) 433 H 380 H (75-99) mg/dL Phosphorus 2.3 L (2.5-4.5) mg/dL Total Protein 4.5 L (6.3-8.2) g/dL Albumin 2.1 L (3.5-5.0) g/dL 09/08/21 09/08/21 09/08/21 Range/Units 08:29 09:02 09:28 Sodium (137-145) mmol/L Chloride (98-107) mmol/L BUN (9-20) mg/dL Creatinine (0.66-1.25) mg/dL Glucose (74-99) mg/dL POC Glucose (mg/dL) 344 H 281 H 234 H (75-99) mg/dL Phosphorus (2.5-4.5) mg/dL Total Protein (6.3-8.2) g/dL Albumin (3.5-5.0) g/dL 09/08/21 09/08/21 Range/Units 11:17 11:55 Sodium (137-145) mmol/L Chloride (98-107) mmol/L BUN (9-20) mg/dL Creatinine (0.66-1.25) mg/dL Glucose (74-99) mg/dL POC Glucose (mg/dL) 170 H 181 H (75-99) mg/dL Phosphorus (2.5-4.5) mg/dL Total Protein (6.3-8.2) g/dL Albumin (3.5-5.0) g/dL Microbiology - Last 24 Hours (Table) 09/02/21 20:48 Blood Culture - Preliminary Blood No Growth after 120 hours 09/02/21 20:48 Blood Culture - Preliminary Blood No Growth after 120 hours 09/03/21 13:20 Gram Stain - Final Peritoneal Fluid Body Fluid Culture - Final Escherichia coli Assessment and Plan Plan: Assessment: 1. End-stage renal disease maintained on peritoneal dialysis. 2. Hyponatremia status post 3% saline. Stable. Partially due to hyperglycemia. 3. Covid-19 pneumonia. 4. Chronic kidney disease mineral bone disease maintained on PhosLo. 5. Hypertension with chronic kidney disease. Stable. 6. Diabetes mellitus. 7. ESBL E. coli peritonitis. Patient's fluid white count was only 3. Possibly contamination. Plan: Maintain current PD changes. Repeat dialysate cell count, culture and Gram stain today. Start intraperitoneal meropenem 1 g with one exchange daily. Consult ID. Receiving TPN.
[2021-09-08] MEDS ORDERED: DIALYSIS (PERIT 1.5%) 2,000 ML 30 G/2,000 ML BAG INTRAPERIT ONE (14:00)
[2021-09-08] MEDS ORDERED: DIALYSIS DEX INTRAPERIT ONE (14:00)
[2021-09-08] MEDS ORDERED: MEROPENEM INTRAPERIT ONE (14:00)
[2021-09-08 14:19] LABS: Glucose,Whole Blood 262 mg/dL (75-99)
--- NOTE | 2021-09-08 15:03 | P.PN ---
Subjective Progress Note Date: 09/08/21 Principal diagnosis: Hyponatremia, COVID-19 infection This is a 76-year-old white male with history of multiple medical problems including end-stage renal disease, on peritoneal dialysis, known history of diabetes, congestive heart failure, coronary artery disease and previous CABG, patient presented to the ER yesterday with 1 day history of abdominal pain. Patient was also noted to be quite confused, workup included a CT of the abdomen and pelvis which came back negative. However his labs were quite abnormal, and his sodium was noted to be 104. The patient himself is a very poor historian, could not get any information from the patient seems to be extremely confused. Patient was also noted to have abnormal renal profile with a BUN of 79 creatinine of 7.34, and he had positive PCR for COVID-19 infection. No chest x- ray was done in the ER, hence short the after I evaluated the patient, chest x- ray was ordered. The meantime the patient is on room air, his O2 sats was 92- 97% on room air. Is afebrile, blood pressure is elevated at 149/96. Upon admission and when I was notified about this patient last night, his PCR for COVID-19 was pending. And I recommended starting the patient on slow infusion of 3% saline and slow correction of his hyponatremia. This morning repeat sodium is 108. Nephrology is yet to see the patient today regarding his chronic renal failure/peritoneal dialysis, and regarding his profound and severe hyponatremia. Chest x-ray showed scattered bilateral infiltrates peripherally and at the bases mostly. Clinically, the patient looks euvolemic, no history to suggest nausea vomiting diarrhea. Patient was reevaluated today on 09/04/2021, patient remains in the ICU, remains on 3% saline for profound hyponatremia, his sodium is correcting slowly. He was seen by nephrology, and the plan is to discontinue 3% later on today. It is running at 20 mL per hour. Patient developed significant hypertension yesterday and agitation, placed on Precedex and he was also placed on clevidipine extra. His blood pressure today seems to be better controlled. However the patient still requires Precedex. Seems to be calm, patient is undergoing peritoneal dialysis. Today I recommended a PICC line and possibly starting the patient on TPN. Nurse tried to put a nasogastric tube in this patient, however he was extremely agitated and he kept pulling it out. I believe the best mode of nutrition for this patient at this point would have to be TPN. Sodium today is up to 116, patient presented initially with a sodium of 104. CBC is relatively normal renal profile is abnormal with a BUN of 80 creatinine 7.57, patient is on peritoneal dialysis. Pulmonary-wilburn, patient is on a couple of liters of oxygen, not in distress, although the patient did have positive PCR for COVID-19 infection, and his chest x-ray on admission showed multifocal opacities consistent with COVID-19 pneumonia The patient is seen today 09/05/2029 in follow-up in the intensive care unit. He was quite a bit more awake and alert today compared to yesterday. He is oriented 2. He is maintaining O2 saturations in the 90s on 2 L/m per nasal cannula. He is receiving peritoneal dialysis every 6 hours. He is currently on 3% normal saline at 35 ML's per hour. Precedex at 0.8 mcgkg/hr. Clevidipine at 2 mg per hour. He is receiving TPN for nourishment at 30 MLS per hour to be increased to 75 ML's. Peritoneal fluid cultures are pending. Blood cultures reveal no growth to date. Current sodium is 119. Potassium 3.1. Chloride 89. Bicarb 23. BUN 73. Creatinine 6.81. Glucose 292. He is remaining in sinus rhythm. Swallow evaluation pending. The patient is seen today 09/06/2021 in follow-up in the intensive care unit. He is currently alert and oriented 3. He is maintaining O2 saturations in the mid 90s on 2 L/m per nasal cannula. Afebrile. He is doing quite well. He is swallowing well. He remains on clevidipine at 8 mg per hour. He's been off the Precedex about 24 hours now. His sodium is 122. Potassium 3.3. BUN 73. Creatinine 6.28. Glucose 301. Calcium 7.5. He remains on Decadron. Heparin for DVT prophylaxis. Remains on TPN and lipids for nutritional support. The patient is seen today 09/07/2021 in follow-up in the intensive care unit. He is currently sitting up in a chair at the bedside. Awake and alert in no acute distress. He is maintaining good O2 saturations in the 90s on room air. He remains on TPN for nutritional support at 75 ML's per hour. No IV fluids. Blood cultures reveal no growth to date. Peritoneal fluid cultures pending. Current sodium 122. Potassium 3.7. Creatinine 6.42. Glucose 239. He remains on Decadron, vitamin supplements, heparin for DVT prophylaxis. On 09/08/2021 patient seen in follow-up on medical surgical floor, he was transferred out of ICU yesterday, he has remained stable overnight, he is awake and alert, he is resting comfortably in bed, he is on room air pulse ox of 93- 96%, breathing comfortably, lung sounds are clear, no rhonchi, no wheezing, no crackles. Denies any dyspnea, no cough, he is receiving peritoneal dialysis 6 times per day. Had no fever or chills, no chest discomfort. Serum sodium is 122, no nausea vomiting diarrhea, his last chest x-ray was done on 09/04/2021 showing patchy infiltrates. Celexa labs have been reviewed, potassium is 4.1, chloride is 92, B1 is 89, creatinine is stable at 6.46. Patient's peritoneal fluid cultures are positive for ESBL E. coli, and patient has been started on meropenem with peritoneal dialysis exchanges by nephrology. Patient has a PICC line in place. Objective - Vital Signs Vital signs: Vital Signs Temp 98.5 F 09/08/21 10:00 Pulse 69 09/08/21 10:00 Resp 16 09/08/21 10:00 BP 126/62 09/08/21 10:00 Pulse Ox 93 L 09/08/21 10:00 Intake & Output 09/07/21 09/08/21 09/08/21 18:59 06:59 18:59 Intake Total 1039 60.726 Output Total 150 Balance 889 60.726 Weight 76.7 kg Intake: Intake, IV Titration 1039 60.726 Amount Insulin Regular 100 unit 60.726 In Sodium Chloride 0.9% 100 ml @ Titrate IV .Q0M [facility] Rx#:[id number] Parenteral Electrolytes 1039 20 ml Sodium Chloride 4Meq/ml Vial 24 meq Potassium Chloride 26 meq In Amino Acids 5 %/ Dextrose 20 % 1,000 ml @ 75 mls/hr IV .BY DURATION [facility] Rx#:[id number] Output: Urine 150 Other: Voiding Method CAPD CAPD - Exam GENERAL EXAM: Alert, very pleasant, 76-year-old white male, on room air with a pulse ox of 93% comfortable in no apparent distress. HEAD: Normocephalic/atraumatic. EYES: Normal reaction of pupils, equal size. Conjunctiva pink, sclera white. NOSE: Clear with pink turbinates. THROAT: No erythema or exudates. NECK: No masses, no JVD, no thyroid enlargement, no adenopathy. CHEST: No chest wall deformity. Symmetrical expansion. LUNGS: Equal air entry with no crackles, wheeze, rhonchi or dullness. CVS: Regular rate and rhythm, normal S1 and S2, no gallops, no murmurs, no rubs ABDOMEN: Soft, nontender. No hepatosplenomegaly, normal bowel sounds, no guar ding or rigidity. Peritoneal dialysis access in the left lower quadrant, insertion site is clean dry and intact, covered with a sterile dressing EXTREMITIES: No clubbing, no edema, no cyanosis, 2+ pulses and upper and lower extremities. MUSCULOSKELETAL: Muscle strength and tone normal. SPINE: No scoliosis or deformity SKIN: No rashes CENTRAL NERVOUS SYSTEM: Alert and oriented -3. No focal deficits, tone is normal in all 4 extremities. PSYCHIATRIC: Alert and oriented -3. Appropriate affect. Intact judgment and insight. - Labs CBC & Chem 7: 09/04/21 04:04 09/08/21 07:38 Labs: Abnormal Lab Results - Last 24 Hours (Table) 09/07/21 09/07/21 09/08/21 Range/Units 17:03 20:22 00:05 Sodium (137-145) mmol/L Chloride (98-107) mmol/L BUN (9-20) mg/dL Creatinine (0.66-1.25) mg/dL Glucose (74-99) mg/dL POC Glucose (mg/dL) 365 H 454 H 443 H (75-99) mg/dL Phosphorus (2.5-4.5) mg/dL Total Protein (6.3-8.2) g/dL Albumin (3.5-5.0) g/dL 09/08/21 09/08/21 09/08/21 Range/Units 06:06 07:30 07:38 Sodium 122 L (137-145) mmol/L Chloride 92 L (98-107) mmol/L BUN 89 H (9-20) mg/dL Creatinine 6.46 H (0.66-1.25) mg/dL Glucose 364 H (74-99) mg/dL POC Glucose (mg/dL) 433 H 380 H (75-99) mg/dL Phosphorus 2.3 L (2.5-4.5) mg/dL Total Protein 4.5 L (6.3-8.2) g/dL Albumin 2.1 L (3.5-5.0) g/dL 09/08/21 09/08/21 09/08/21 Range/Units 08:29 09:02 09:28 Sodium (137-145) mmol/L Chloride (98-107) mmol/L BUN (9-20) mg/dL Creatinine (0.66-1.25) mg/dL Glucose (74-99) mg/dL POC Glucose (mg/dL) 344 H 281 H 234 H (75-99) mg/dL Phosphorus (2.5-4.5) mg/dL Total Protein (6.3-8.2) g/dL Albumin (3.5-5.0) g/dL 09/08/21 09/08/21 09/08/21 Range/Units 11:17 11:55 14:17 Sodium (137-145) mmol/L Chloride (98-107) mmol/L BUN (9-20) mg/dL Creatinine (0.66-1.25) mg/dL Glucose (74-99) mg/dL POC Glucose (mg/dL) 170 H 181 H 262 H (75-99) mg/dL Phosphorus (2.5-4.5) mg/dL Total Protein (6.3-8.2) g/dL Albumin (3.5-5.0) g/dL Microbiology - Last 24 Hours (Table) 09/02/21 20:48 Blood Culture - Preliminary Blood No Growth after 120 hours 09/02/21 20:48 Blood Culture - Preliminary Blood No Growth after 120 hours 09/03/21 13:20 Gram Stain - Final Peritoneal Fluid Body Fluid Culture - Final Escherichia coli Assessment and Plan Plan: Assessment: #1. Hyponatremia, likely related to severe hypovolemia, patient came in with a serum sodium of 104, currently significantly improved, and is up to 122 on today's labs on 09/08/2021 #2. Acute COVID-19 infection without significant pulmonary involvement, patient remains on room air #3. Chronic kidney disease, endstage, on peritoneal dialysis #4. ESBL E. coli infection in the peritoneal fluid, patient has been started on meropenem with peritoneal dialysis exchanges #5. History of coronary artery disease with previous coronary artery bypass grafting #6. 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 Hypertension Plan: Patient is on room air, his breathing has been stable Denies any shortness of breath, no cough Continue on COVID-19 vitamins Continue subcu heparin Patient was found to have ESBL E. coli infection in the nail fluid, acute peritonitis Antibiotics per nephrology with peritoneal exchanges I performed a history & physical examination of the patient and discussed their management with my nurse practitioner, Agnieszka Vivar. I reviewed the nurse practitioner's note and agree with the documented findings and plan of care. Lung sounds are positive for diminished breath sounds. throughout the lung bland. The findings and the impression was discussed with the patient. I attest to the documentation by the nurse practitioner. Time with Patient: Less than 30
[2021-09-08 17:07] LABS: Glucose,Whole Blood 273 mg/dL (75-99)
[2021-09-08] MEDS: [UNRECOGNIZED DRUG - NUTRITION] IV SCH ×5 (18:21)
[2021-09-08 19:12] LABS: Glucose,Whole Blood 303 mg/dL (75-99)
[2021-09-08] MEDS: DIALYSIS INTRAPERIT SCH (21:00)
[2021-09-08 21:10] LABS: Appearance,BF Clear; Nucleated Cells, Body Fluid 0 /uL; RBC, Body Fluid 0 /uL
[2021-09-08 21:32] LABS: Glucose,Whole Blood 324 mg/dL (75-99)
[2021-09-08 23:19] LABS: Glucose,Whole Blood 347 mg/dL (75-99)
[2021-09-09 01:27] LABS: Glucose,Whole Blood 356 mg/dL (75-99)
[2021-09-09] MEDS: hydrALAZINE HCL 20 MG/ML 1 ML VIAL IVP PRN (01:42)
[2021-09-09] MEDS: DIALYSIS INTRAPERIT SCH (02:34)
[2021-09-09 03:17] LABS: Glucose,Whole Blood 302 mg/dL (75-99)
[2021-09-09 05:24] LABS: Glucose,Whole Blood 292 mg/dL (75-99)
[2021-09-09] MEDS: NITROGLYCERIN OINT 1 INCH/GM PACKET TOPICAL SCH ×4 (05:24→23:42)
[2021-09-09 06:48] LABS: African American GFR (CKD) 10 (>60 ml/min/1.73 sqM); Anion Gap 6 mmol/L; Blood Urea Nitrogen 96 mg/dL (9-20); Calcium 8.6 mg/dL (8.4-10.2); Carbon Dioxide 23 mmol/L (22-30); Chloride 95 mmol/L (98-107); Glucose 263 mg/dL (74-99); Non-African American GFR(CKD) 8 (>60 ml/min/1.73 sqM); Potassium 4.2 mmol/L (3.5-5.1); Sodium 124 mmol/L (137-145)
[2021-09-09] MEDS ORDERED: INSULIN DETEMIR (LEVEMIR) 100 UNIT/ML SYR SQ SCH ×2 (07:00→12:30)
[2021-09-09 07:31] LABS: Glucose,Whole Blood 188 mg/dL (75-99)
[2021-09-09] MEDS ORDERED: DIALYSIS (PERIT 1.5%) 2,000 ML 30 G/2,000 ML BAG INTRAPERIT SCH (08:00)
[2021-09-09] MEDS: DIALYSIS DEX INTRAPERIT SCH (08:35)
[2021-09-09] MEDS: MEROPENEM INTRAPERIT SCH (08:35)
[2021-09-09] MEDS: [UNRECOGNIZED DRUG - NUTRITION] IV SCH ×10 (08:41→21:18)
[2021-09-09] MEDS: INSULIN REGULAR 100 UNIT in SODIUM CHLORIDE 0.9% 100 ML IV SCH (08:41)
[2021-09-09] MEDS: HEPARIN SODIUM,PORCINE/PF 5,000 UNIT/0.5 ML SYRINGE SQ SCH ×2 (08:54→20:53)
[2021-09-09] MEDS: carvediloL 12.5 MG TAB PO SCH ×2 (08:54→17:07)
[2021-09-09] MEDS: amLODIPine 10 MG TAB PO SCH (08:54)
[2021-09-09] MEDS: SODIUM BICARBONATE TAB 650 MG TAB PO SCH ×2 (08:54→20:53)
[2021-09-09] MEDS: DOCUSATE 100 MG CAP PO SCH (08:55)
[2021-09-09] MEDS: PANTOPRAZOLE 40 MG TABLET PO SCH (08:55)
[2021-09-09] MEDS: ASCORBIC ACID 500 MG TAB PO SCH (08:55)
[2021-09-09] MEDS: ASPIRIN 81 MG PO SCH (08:55)
[2021-09-09] MEDS: CALCIUM ACETATE 667 MG TAB PO SCH ×2 (08:55→11:34)
[2021-09-09] MEDS: CHOLECALCIFEROL 25 MCG (1000 IU) TABLET PO SCH (08:55)
[2021-09-09] MEDS: INSULIN ASPART (NovoLOG) 100 UNIT/ML VIAL SQ SCH ×4 (08:58→20:53)
[2021-09-09 09:36] LABS: Glucose,Whole Blood 213 mg/dL (75-99)
[2021-09-09 10:01] LABS: Magnesium 2.1 mg/dL (1.5-2.4); Phosphorus 1.6 mg/dL (2.4-5.1)
--- NOTE | 2021-09-09 10:34 | P.PN ---
Subjective Patient is seen in follow-up for end-stage renal disease and hyponatremia. Sodium level better. Blood sugars on the higher side. No problems with peritoneal dialysis. He is receiving TPN. Peritoneal fluid came back positive for ESBL E. coli but cell count not suggestive of peritonitis. He denies any abdominal pain. No vomiting. Vital signs are stable. General: The patient appeared well nourished and normally developed. HEENT: Head exam is unremarkable. LUNGS: Breath sounds decreased. HEART: Rate and Rhythm are regular. ABDOMEN:, No distention. EXTREMITITES: No edema. Objective - Vital Signs Vital signs: Vital Signs Temp 98.7 F 09/09/21 10:18 Pulse 71 09/09/21 10:18 Resp 16 09/09/21 10:18 BP 138/63 09/09/21 10:18 Pulse Ox 95 09/09/21 10:18 Intake & Output 09/08/21 09/09/21 09/09/21 18:59 06:59 18:59 Intake Total 73.519 98.519 21.127 Balance 73.519 98.519 21.127 Weight 76.7 kg Intake: Intake, IV Titration 73.519 98.519 21.127 Amount Insulin Regular 100 unit 73.519 98.519 21.127 In Sodium Chloride 0.9% 100 ml @ Titrate IV .Q0M [facility] Rx#:[id number] Other: Voiding Method CAPD CAPD CAPD # Voids 0 - Labs CBC & Chem 7: 09/04/21 04:04 09/09/21 05:43 Labs: Abnormal Lab Results - Last 24 Hours (Table) 09/08/21 09/08/21 09/08/21 Range/Units 11:17 11:55 14:17 Sodium (137-145) mmol/L Chloride (98-107) mmol/L BUN (9-20) mg/dL Creatinine (0.66-1.25) mg/dL Glucose (74-99) mg/dL POC Glucose (mg/dL) 170 H 181 H 262 H (75-99) mg/dL Phosphorus (2.4-5.1) mg/dL 09/08/21 09/08/21 09/08/21 Range/Units 16:51 19:10 21:30 Sodium (137-145) mmol/L Chloride (98-107) mmol/L BUN (9-20) mg/dL Creatinine (0.66-1.25) mg/dL Glucose (74-99) mg/dL POC Glucose (mg/dL) 273 H 303 H 324 H (75-99) mg/dL Phosphorus (2.4-5.1) mg/dL 09/08/21 09/09/21 09/09/21 Range/Units 23:17 01:25 03:15 Sodium (137-145) mmol/L Chloride (98-107) mmol/L BUN (9-20) mg/dL Creatinine (0.66-1.25) mg/dL Glucose (74-99) mg/dL POC Glucose (mg/dL) 347 H 356 H 302 H (75-99) mg/dL Phosphorus (2.4-5.1) mg/dL 09/09/21 09/09/21 09/09/21 Range/Units 05:22 05:43 05:43 Sodium 124 L (137-145) mmol/L Chloride 95 L (98-107) mmol/L BUN 96 H (9-20) mg/dL Creatinine 6.08 H (0.66-1.25) mg/dL Glucose 263 H (74-99) mg/dL POC Glucose (mg/dL) 292 H (75-99) mg/dL Phosphorus 1.6 L (2.4-5.1) mg/dL 09/09/21 09/09/21 Range/Units 07:29 09:32 Sodium (137-145) mmol/L Chloride (98-107) mmol/L BUN (9-20) mg/dL Creatinine (0.66-1.25) mg/dL Glucose (74-99) mg/dL POC Glucose (mg/dL) 188 H 213 H (75-99) mg/dL Phosphorus (2.4-5.1) mg/dL Microbiology - Last 24 Hours (Table) 09/08/21 18:32 Gram Stain - Preliminary Dialysate Body Fluid Culture - Preliminary 09/02/21 20:48 Blood Culture - Final Blood No Growth after 144 hours 09/02/21 20:48 Blood Culture - Final Blood No Growth after 144 hours Assessment and Plan Plan: Assessment: 1. End-stage renal disease maintained on peritoneal dialysis. 2. Hyponatremia status post 3% saline. Stable. Partially due to hyperglycemi a. Better. 3. Covid-19 pneumonia. 4. Chronic kidney disease mineral bone disease maintained on PhosLo. 5. Hypertension with chronic kidney disease. Stable. 6. Diabetes mellitus. 7. ESBL E. coli peritonitis. Patient's fluid white count was only 3 and 0 on repeat. Possibly contamination? Plan: Maintain current PD changes. F/u repeat culture. Maintain intraperitoneal meropenem 1 g with one exchange daily. ID recommendations pending. Receiving TPN.
[2021-09-09 11:40] LABS: Glucose,Whole Blood 236 mg/dL (75-99)
--- NOTE | 2021-09-09 12:51 | P.PN ---
Subjective This is a pleasant 76 years old male with past medical history of Heart Failure, Diabetes Mellitus, renal disease on peritoneal Dialysis, Hypertension, history of Coronary Bypass/CABG, Patient presents because of abdominal pain per emergency room Note however patient found to have be confused with hypernatremia His sodium on admission was 104, earlier this morning was 108 and ended in weight respectively. patient currently remains in the ICU confused, does not follow commands, he is also on restraints. He denies any chest pain or abdominal pain. His abdomen looks soft and there is dialysis to running out of his left lower quadrant of abdomen, not connected to anything. His abdomen is soft with no tenderness or guarding. No rebound tenderness he moves all extremities equally. Patient is poor historian On admission he is afebrile, his breathing rate around 11, blood pressure 174/96 and he is saturating 95% on room air. WBC 6.9 and 13.3. Rest of CBC is unremarkable. Sodium on admission was low at 104, currently is 108. Unknown baseline. Creatinine elevated 7.3. Troponin is elevated at 0.05 Urine analysis is showing 2+ protein, 2+ glucose. Hamilton v. is detected CT of the abdomen and pelvis with no contrast: Sigmoid diverticulosis without diverticulitis. Atherosclerotic vascular disease. None obstructing large calculus right renal pelvis In the emergency room patient received Protonix, pain medication Nephrology and ice team were consulted already 09/04/2021 Patient is confused and sleepy, does not follow command. Sitter at bedside. His metabolic encephalopathy most likely secondary to hypernatremia. Neurologist on the case. EKG and CT of the brain are pending. He is not in respiratory distress and abdomen is soft. Distal on 3% normal saline at 20 ml/h. Also he was started on calviprex her blood pressure was elevated last night 194/85. Sodium today improved 214. Echocardiogram showed ejection fraction of 55-60% with moderate aortic stenosis Patient continued to 3% NS, calviprex DRIP, multiple vitamins and dexamethasone. Also he is on subcutaneous heparin for DVT prophylaxis 09/05/2021 Patient today is awake and alert and oriented to place, he knows he is [facility] but he still disoriented to time person. He follows commands approp riately. He denies any specific complaints. Improved. 125 and 3% saline was discontinued and patient was started on TPN pending swallow evaluation. Blood pressure is a stable while he is still on Calviprex drip, last blood pressure 150/71. He remains on dexamethasone, multiple vitamins forego with infection but he is saturating 95 % on 2 L/m of oxygen. We'll keep monitoring sodium 09/06/2021 Patient mentation keeps improving, neurology signed off, sodium is 122 and nephrology of the case recommended to increase salt intake with food. This morning he was complaining of from burning chest pain with markedly elevated troponin in view of his kidney disease. Echocardiogram area was with no hypokinesia but he has ejection fraction of 55-60% with moderate aortic stenosis, DrAdán office today and was admitted for uncontrolled blood pressure with systolic or than 190 also he is on Norvasc 10 mg on Coreg 25 mg and hydralazine when necessary. Blood pressure improved through the day systolic down to 160s. Cardiology team consulted. Patient remains on dexamethasone, multiple vitamins, calviprex drip 09/07/2021 Patient mentation looks like at baseline. He is oriented to place only but not to time or person. He knows he is in [facility]. No chest pain. No other complaints. Blood pressure is slightly elevated 174/81, other vitals stable. Sodium is stable at 122 sodium bicarb tablets added by meter supervisor. A still on steroids and multiple vitamins Transferred to the general medical floor today 09/08/2021 Is awake and alert at baseline. He was asking when he can be discharged. He denies headache. No chest pain or dyspnea. He is hemodynamically stable. Blood pressure this morning was 126/62. Afebrile. Sodium from yesterday we will is 122. Sodium level today still pending. Glucose was elevated more than 300 and he was placed on insulin drip. Risks are 10 his Levemir 6012 units at home but at 15 units daily. Also he is on NovoLog 10 units with meals. He is still dexamethasone, multiple vitamins, Norvasc and Coreg 25 mg. I discussed the case with cardiology team and the recommend to keep the patient on aspirin 09/09/2021 Patient awake and alert, confused at baseline but he is oriented to place he knows he is in [facility]. He denies chest pain or abdominal pain or any other symptoms. He is still undergoing peritoneal dialysis through his abdomina l cavity peritoneal tube. However culture came back positive for E. coli suspicious for infection and patient was started on meropenem and consult infectious disease team. Vitals stable, elevated blood pressure is better controlled today 138/63. Glucose is around 200 and he is on insulin drip 2.5 units per hour, start him on Levemir once daily and insulin sliding scale as patient is not eating much, he ate only little of his breakfast this morning. Sodium improved and today is 124. Patient is still getting TPN He remains on dexamethasone and multiple vitamins for his covid infection Objective - Vital Signs Vital signs: Vital Signs Temp 98.7 F 09/09/21 10:18 Pulse 71 09/09/21 10:18 Resp 16 09/09/21 10:18 BP 138/63 09/09/21 10:18 Pulse Ox 95 09/09/21 10:18 Intake & Output 09/08/21 09/09/21 09/09/21 18:59 06:59 18:59 Intake Total 73.519 98.519 26.884 Balance 73.519 98.519 26.884 Weight 76.7 kg Intake: Intake, IV Titration 73.519 98.519 26.884 Amount Insulin Regular 100 unit 73.519 98.519 26.884 In Sodium Chloride 0.9% 100 ml @ Titrate IV .Q0M [facility] Rx#:[id number] Other: Voiding Method CAPD CAPD CAPD # Voids 0 - Exam -GENERAL: The patient is sleepy, not in any acute distress. Well developed, well nourished. HEENT: Pupils are round and equally reacting to light. EOMI. No scleral icterus. No conjunctival pallor. Normocephalic, atraumatic. No pharyngeal erythema. No thyromegaly. CARDIOVASCULAR: S1 and S2 present. No murmurs, rubs, or gallops. PULMONARY: Chest is clear to auscultation, no wheezing or crackles. -ABDOMEN: Soft, nontender, nondistended, normoactive bowel sounds. No palpable organomegaly. Peritoneal tube from the left lower quadrant, not connected MUSCULOSKELETAL: No joint swelling or deformity. EXTREMITIES: No cyanosis, clubbing, or pedal edema. NEUROLOGICAL: Gross neurological examination did not reveal any focal deficits. SKIN: No rashes. no petechiae. - Labs CBC & Chem 7: 09/04/21 04:04 09/09/21 05:43 Labs: Abnormal Lab Results - Last 24 Hours (Table) 09/08/21 09/08/21 09/08/21 Range/Units 14:17 16:51 19:10 Sodium (137-145) mmol/L Chloride (98-107) mmol/L BUN (9-20) mg/dL Creatinine (0.66-1.25) mg/dL Glucose (74-99) mg/dL POC Glucose (mg/dL) 262 H 273 H 303 H (75-99) mg/dL Phosphorus (2.4-5.1) mg/dL 09/08/21 09/08/21 09/09/21 Range/Units 21:30 23:17 01:25 Sodium (137-145) mmol/L Chloride (98-107) mmol/L BUN (9-20) mg/dL Creatinine (0.66-1.25) mg/dL Glucose (74-99) mg/dL POC Glucose (mg/dL) 324 H 347 H 356 H (75-99) mg/dL Phosphorus (2.4-5.1) mg/dL 09/09/21 09/09/21 09/09/21 Range/Units 03:15 05:22 05:43 Sodium (137-145) mmol/L Chloride (98-107) mmol/L BUN (9-20) mg/dL Creatinine (0.66-1.25) mg/dL Glucose (74-99) mg/dL POC Glucose (mg/dL) 302 H 292 H (75-99) mg/dL Phosphorus 1.6 L (2.4-5.1) mg/dL 09/09/21 09/09/21 09/09/21 Range/Units 05:43 07:29 09:32 Sodium 124 L (137-145) mmol/L Chloride 95 L (98-107) mmol/L BUN 96 H (9-20) mg/dL Creatinine 6.08 H (0.66-1.25) mg/dL Glucose 263 H (74-99) mg/dL POC Glucose (mg/dL) 188 H 213 H (75-99) mg/dL Phosphorus (2.4-5.1) mg/dL 09/09/21 Range/Units 11:37 Sodium (137-145) mmol/L Chloride (98-107) mmol/L BUN (9-20) mg/dL Creatinine (0.66-1.25) mg/dL Glucose (74-99) mg/dL POC Glucose (mg/dL) 236 H (75-99) mg/dL Phosphorus (2.4-5.1) mg/dL Microbiology - Last 24 Hours (Table) 09/08/21 18:32 Gram Stain - Preliminary Dialysate Body Fluid Culture - Preliminary 09/02/21 20:48 Blood Culture - Final Blood No Growth after 144 hours 09/02/21 20:48 Blood Culture - Final Blood No Growth after 144 hours Assessment and Plan Assessment: severe hyponatremia, improving Altered mental status, most likely metabolic encephalopathy secondary to hyponatremia, improved Covid infection with no hypoxia peritoneal fluid infection with culture positive for E. coli, possible peritonitis secondary to dialysis catheter Chest pain Diabetes mellitus Chronic heart failure Hypertension Elevated troponin History of coronary artery disease status post CABG History of renal disease on dialysis Right kidney stone Plan: This is a pleasant 76 years old male who presents with hypernatremia Sodium is a stable Continue with peritoneal dialysis. Nephrology team recommendation patient is a started on meropenem for possible peritonitis. Infectious disease consult Critical team consult Neurology on the case. Continue with TPN. Swallow evaluation Labs and medication were reviewed.. Continue same treatment. Continue with symptomatic treatment. Resume home medication. Monitor lytes and vitals. DVT and GI prophylaxis. Further recommendations depends on the clinical course of the patient DVT prophylaxis: Subcutaneous heparin GI Prophylaxis: Ppi Prognosis is guarded
[2021-09-09] MEDS: SODIUM PHOSPHATE 10 MMOL in SODIUM CHLORIDE 0.9% 100 ML IVPB SCH ×2 (13:46→16:24)
--- NOTE | 2021-09-09 14:30 | P.PN ---
Subjective Progress Note Date: 09/09/21 Principal diagnosis: Hyponatremia, COVID-19 infection This is a 76-year-old white male with history of multiple medical problems including end-stage renal disease, on peritoneal dialysis, known history of diabetes, congestive heart failure, coronary artery disease and previous CABG, patient presented to the ER yesterday with 1 day history of abdominal pain. Patient was also noted to be quite confused, workup included a CT of the abdomen and pelvis which came back negative. However his labs were quite abnormal, and his sodium was noted to be 104. The patient himself is a very poor historian, could not get any information from the patient seems to be extremely confused. Patient was also noted to have abnormal renal profile with a BUN of 79 creatinine of 7.34, and he had positive PCR for COVID-19 infection. No chest x- ray was done in the ER, hence short the after I evaluated the patient, chest x- ray was ordered. The meantime the patient is on room air, his O2 sats was 92- 97% on room air. Is afebrile, blood pressure is elevated at 149/96. Upon admission and when I was notified about this patient last night, his PCR for COVID-19 was pending. And I recommended starting the patient on slow infusion of 3% saline and slow correction of his hyponatremia. This morning repeat sodium is 108. Nephrology is yet to see the patient today regarding his chronic renal failure/peritoneal dialysis, and regarding his profound and severe hyponatremia. Chest x-ray showed scattered bilateral infiltrates peripherally and at the bases mostly. Clinically, the patient looks euvolemic, no history to suggest nausea vomiting diarrhea. Patient was reevaluated today on 09/04/2021, patient remains in the ICU, remains on 3% saline for profound hyponatremia, his sodium is correcting slowly. He was seen by nephrology, and the plan is to discontinue 3% later on today. It is running at 20 mL per hour. Patient developed significant hypertension yesterday and agitation, placed on Precedex and he was also placed on clevidipine extra. His blood pressure today seems to be better controlled. However the patient still requires Precedex. Seems to be calm, patient is undergoing peritoneal dialysis. Today I recommended a PICC line and possibly starting the patient on TPN. Nurse tried to put a nasogastric tube in this patient, however he was extremely agitated and he kept pulling it out. I believe the best mode of nutrition for this patient at this point would have to be TPN. Sodium today is up to 116, patient presented initially with a sodium of 104. CBC is relatively normal renal profile is abnormal with a BUN of 80 creatinine 7.57, patient is on peritoneal dialysis. Pulmonary-wilburn, patient is on a couple of liters of oxygen, not in distress, although the patient did have positive PCR for COVID-19 infection, and his chest x-ray on admission showed multifocal opacities consistent with COVID-19 pneumonia The patient is seen today 09/05/2029 in follow-up in the intensive care unit. He was quite a bit more awake and alert today compared to yesterday. He is oriented 2. He is maintaining O2 saturations in the 90s on 2 L/m per nasal cannula. He is receiving peritoneal dialysis every 6 hours. He is currently on 3% normal saline at 35 ML's per hour. Precedex at 0.8 mcgkg/hr. Clevidipine at 2 mg per hour. He is receiving TPN for nourishment at 30 MLS per hour to be increased to 75 ML's. Peritoneal fluid cultures are pending. Blood cultures reveal no growth to date. Current sodium is 119. Potassium 3.1. Chloride 89. Bicarb 23. BUN 73. Creatinine 6.81. Glucose 292. He is remaining in sinus rhythm. Swallow evaluation pending. The patient is seen today 09/06/2021 in follow-up in the intensive care unit. He is currently alert and oriented 3. He is maintaining O2 saturations in the mid 90s on 2 L/m per nasal cannula. Afebrile. He is doing quite well. He is swallowing well. He remains on clevidipine at 8 mg per hour. He's been off the Precedex about 24 hours now. His sodium is 122. Potassium 3.3. BUN 73. Creatinine 6.28. Glucose 301. Calcium 7.5. He remains on Decadron. Heparin for DVT prophylaxis. Remains on TPN and lipids for nutritional support. The patient is seen today 09/07/2021 in follow-up in the intensive care unit. He is currently sitting up in a chair at the bedside. Awake and alert in no acute distress. He is maintaining good O2 saturations in the 90s on room air. He remains on TPN for nutritional support at 75 ML's per hour. No IV fluids. Blood cultures reveal no growth to date. Peritoneal fluid cultures pending. Current sodium 122. Potassium 3.7. Creatinine 6.42. Glucose 239. He remains on Decadron, vitamin supplements, heparin for DVT prophylaxis. On 09/08/2021 patient seen in follow-up on medical surgical floor, he was transferred out of ICU yesterday, he has remained stable overnight, he is awake and alert, he is resting comfortably in bed, he is on room air pulse ox of 93- 96%, breathing comfortably, lung sounds are clear, no rhonchi, no wheezing, no crackles. Denies any dyspnea, no cough, he is receiving peritoneal dialysis 6 times per day. Had no fever or chills, no chest discomfort. Serum sodium is 122, no nausea vomiting diarrhea, his last chest x-ray was done on 09/04/2021 showing patchy infiltrates. Celexa labs have been reviewed, potassium is 4.1, chloride is 92, B1 is 89, creatinine is stable at 6.46. Patient's peritoneal fluid cultures are positive for ESBL E. coli, and patient has been started on meropenem with peritoneal dialysis exchanges by nephrology. Patient has a PICC line in place. On 09/09/2021 patient seen in follow-up on medical surgical floor. He is breathing comfortably, asymptomatic from pulmonary perspective, denies any cough, no dyspnea. Pulse ox is 97%, no fever or chills, lung sounds are clear, patient is currently being treated for peritonitis with peritoneal fluid positive for ESBL E. coli, he is currently on meropenem. Patient's labs have been reviewed, serum sodium is 124, potassium is 4.2, chloride is 95, B1 is 96, creatinine 6.08, renal function is slightly improved, patient is getting peritoneal dialysis exchanges 6 times per day. Objective - Vital Signs Vital signs: Vital Signs Temp 98.4 F 09/09/21 13:37 Pulse 78 09/09/21 13:37 Resp 17 09/09/21 13:37 BP 130/66 09/09/21 13:37 Pulse Ox 97 09/09/21 13:37 Intake & Output 11/22/21 11/23/21 11/23/21 18:59 06:59 18:59 Intake Total 73.519 98.519 26.884 Balance 73.519 98.519 26.884 Weight 76.7 kg Intake: Intake, IV Titration 73.519 98.519 26.884 Amount Insulin Regular 100 unit 73.519 98.519 26.884 In Sodium Chloride 0.9% 100 ml @ Titrate IV .Q0M [facility] Rx#:[id number] Other: Voiding Method CAPD CAPD CAPD # Voids 0 - Exam GENERAL EXAM: Alert, very pleasant, 76-year-old white male, on room air with a pulse ox of 97% comfortable in no apparent distress. HEAD: Normocephalic/atraumatic. EYES: Normal reaction of pupils, equal size. Conjunctiva pink, sclera white. NOSE: Clear with pink turbinates. THROAT: No erythema or exudates. NECK: No masses, no JVD, no thyroid enlargement, no adenopathy. CHEST: No chest wall deformity. Symmetrical expansion. LUNGS: Equal air entry with no crackles, wheeze, rhonchi or dullness. CVS: Regular rate and rhythm, normal S1 and S2, no gallops, no murmurs, no rubs ABDOMEN: Soft, nontender. No hepatosplenomegaly, normal bowel sounds, no guarding or rigidity. Peritoneal dialysis access in the left lower quadrant, insertion site is clean dry and intact, covered with a sterile dressing EXTREMITIES: No clubbing, no edema, no cyanosis, 2+ pulses and upper and lower extremities. MUSCULOSKELETAL: Muscle strength and tone normal. SPINE: No scoliosis or deformity SKIN: No rashes CENTRAL NERVOUS SYSTEM: Alert and oriented -3. No focal deficits, tone is normal in all 4 extremities. PSYCHIATRIC: Alert and oriented -3. Appropriate affect. Intact judgment and insight. - Labs CBC & Chem 7: 09/04/21 04:04 09/09/21 05:43 Labs: Abnormal Lab Results - Last 24 Hours (Table) 09/08/21 09/08/21 09/08/21 Range/Units 16:51 19:10 21:30 Sodium (137-145) mmol/L Chloride (98-107) mmol/L BUN (9-20) mg/dL Creatinine (0.66-1.25) mg/dL Glucose (74-99) mg/dL POC Glucose (mg/dL) 273 H 303 H 324 H (75-99) mg/dL Phosphorus (2.4-5.1) mg/dL 09/08/21 09/09/21 09/09/21 Range/Units 23:17 01:25 03:15 Sodium (137-145) mmol/L Chloride (98-107) mmol/L BUN (9-20) mg/dL Creatinine (0.66-1.25) mg/dL Glucose (74-99) mg/dL POC Glucose (mg/dL) 347 H 356 H 302 H (75-99) mg/dL Phosphorus (2.4-5.1) mg/dL 09/09/21 09/09/21 09/09/21 Range/Units 05:22 05:43 05:43 Sodium 124 L (137-145) mmol/L Chloride 95 L (98-107) mmol/L BUN 96 H (9-20) mg/dL Creatinine 6.08 H (0.66-1.25) mg/dL Glucose 263 H (74-99) mg/dL POC Glucose (mg/dL) 292 H (75-99) mg/dL Phosphorus 1.6 L (2.4-5.1) mg/dL 09/09/21 09/09/21 09/09/21 Range/Units 07:29 09:32 11:37 Sodium (137-145) mmol/L Chloride (98-107) mmol/L BUN (9-20) mg/dL Creatinine (0.66-1.25) mg/dL Glucose (74-99) mg/dL POC Glucose (mg/dL) 188 H 213 H 236 H (75-99) mg/dL Phosphorus (2.4-5.1) mg/dL Microbiology - Last 24 Hours (Table) 09/08/21 18:32 Gram Stain - Preliminary Dialysate Body Fluid Culture - Preliminary 09/02/21 20:48 Blood Culture - Final Blood No Growth after 144 hours 09/02/21 20:48 Blood Culture - Final Blood No Growth after 144 hours Assessment and Plan Plan: Assessment: #1. Hyponatremia, likely related to severe hypovolemia, patient came in with a serum sodium of 104, currently significantly improved, and is up to 122 on today's labs on 09/08/2021 #2. Acute COVID-19 infection without significant pulmonary involvement, patient remains on room air #3. Chronic kidney disease, endstage, on peritoneal dialysis #4. ESBL E. coli infection in the peritoneal fluid, patient has been started on meropenem with peritoneal dialysis exchanges #5. History of coronary artery disease with previous coronary artery bypass grafting #6. 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 Hypertension Plan: Remains asymptomatic from pulmonary perspective, on room air Continues treatment for ESBL Ecoli peritionitis antibiotics per nephrology with PD exchanges Pulmonary service will sign off and follow on as needed basis I performed a history & physical examination of the patient and discussed their management with my nurse practitioner, Agnieszka Vivar. I reviewed the nurse practitioner's note and agree with the documented findings and plan of care. Lung sounds are positive for diminished breath sounds. throughout the lung bland. The findings and the impression was discussed with the patient. I attest to the documentation by the nurse practitioner. Time with Patient: Less than 30
[2021-09-09] MEDS: DIALYSIS (PERIT 1.5%) 2,000 ML 30 G/2,000 ML BAG INTRAPERIT SCH ×2 (14:53→20:52)
[2021-09-09 17:03] LABS: Glucose,Whole Blood 319 mg/dL (75-99)
[2021-09-09 20:13] LABS: Glucose,Whole Blood 348 mg/dL (75-99)
[2021-09-10] MEDS: DIALYSIS (PERIT 1.5%) 2,000 ML 30 G/2,000 ML BAG INTRAPERIT SCH ×3 (02:18→21:01)
[2021-09-10] MEDS: NITROGLYCERIN OINT 1 INCH/GM PACKET TOPICAL SCH ×3 (05:21→16:39)
[2021-09-10 07:00] LABS: African American GFR (CKD) 10 (>60 ml/min/1.73 sqM); Anion Gap 6 mmol/L; Blood Urea Nitrogen 98 mg/dL (9-20); Calcium 8.2 mg/dL (8.4-10.2); Carbon Dioxide 25 mmol/L (22-30); Chloride 93 mmol/L (98-107); Glucose 352 mg/dL (74-99); Non-African American GFR(CKD) 8 (>60 ml/min/1.73 sqM); Potassium 4.5 mmol/L (3.5-5.1); Sodium 124 mmol/L (137-145)
[2021-09-10] MEDS ORDERED: INSULIN DETEMIR (LEVEMIR) 100 UNIT/ML SYR SQ SCH (07:00)
[2021-09-10 07:31] LABS: Glucose,Whole Blood 404 mg/dL (75-99)
[2021-09-10] MEDS: INSULIN ASPART (NovoLOG) 100 UNIT/ML VIAL SQ SCH ×4 (08:13→21:59)
[2021-09-10] MEDS: HEPARIN SODIUM,PORCINE/PF 5,000 UNIT/0.5 ML SYRINGE SQ SCH ×2 (08:13→22:00)
[2021-09-10] MEDS: ASCORBIC ACID 500 MG TAB PO SCH (08:15)
[2021-09-10] MEDS: amLODIPine 10 MG TAB PO SCH (08:15)
[2021-09-10] MEDS: carvediloL 12.5 MG TAB PO SCH ×2 (08:15→16:35)
[2021-09-10] MEDS: SODIUM BICARBONATE TAB 650 MG TAB PO SCH ×2 (08:15→22:00)
[2021-09-10] MEDS: DOCUSATE 100 MG CAP PO SCH (08:16)
[2021-09-10] MEDS: CHOLECALCIFEROL 25 MCG (1000 IU) TABLET PO SCH (08:16)
[2021-09-10] MEDS: PANTOPRAZOLE 40 MG TABLET PO SCH (08:16)
[2021-09-10] MEDS: ASPIRIN 81 MG PO SCH (08:16)
[2021-09-10] MEDS: MEROPENEM INTRAPERIT SCH (08:32)
[2021-09-10] MEDS: DIALYSIS DEX INTRAPERIT SCH (08:32)
[2021-09-10 10:17] LABS: Magnesium 2.1 mg/dL (1.5-2.4)
--- NOTE | 2021-09-10 10:29 | P.PN ---
Subjective Patient is seen in follow-up for end-stage renal disease and hyponatremia. Sodium level stable. Blood sugars on the higher side. No problems with peritoneal dialysis. He is receiving TPN. Peritoneal fluid came back positive for ESBL E. coli but cell count not suggestive of peritonitis. He denies any abdominal pain. No vomiting. Vital signs are stable. General: The patient appeared well nourished and normally developed. HEENT: Head exam is unremarkable. LUNGS: Breath sounds decreased. HEART: Rate and Rhythm are regular. ABDOMEN:, No distention. EXTREMITITES: No edema. Objective - Vital Signs Vital signs: Vital Signs Temp 98.7 F 09/10/21 09:57 Pulse 76 09/10/21 09:57 Resp 20 09/10/21 09:57 BP 144/68 09/10/21 09:57 Pulse Ox 95 09/10/21 09:57 Intake & Output 09/09/21 09/10/21 09/10/21 18:59 06:59 18:59 Intake Total 778.255 0645.25 Output Total 100 25 Balance 619.151 4969.25 -25 Weight 77.5 kg Intake: Intake, IV Titration 126.884 946.25 Amount Insulin Regular 100 unit 26.884 In Sodium Chloride 0.9% 100 ml @ Titrate IV .Q0M [facility] Rx#:[id number] Sodium Chloride 4Meq/ml 946.25 Vial 36 meq Potassium Chloride 20 meq In Amino Acid 5%-D20w+Lytes*E* 1, 000 ml @ 75 mls/hr IV .BY DURATION [facility] Rx#: [id number] Sodium Phosphate 10 mmol 100 In Sodium Chloride 0.9% 100 ml @ 50 mls/hr IVPB Q2H [facility] Rx#:[id number] Oral 200 Output: Urine 100 25 Other: Voiding Method CAPD CAPD - Labs CBC & Chem 7: 09/04/21 04:04 09/10/21 05:41 Labs: Abnormal Lab Results - Last 24 Hours (Table) 09/09/21 09/09/21 09/09/21 Range/Units 11:37 16:55 20:12 Sodium (137-145) mmol/L Chloride (98-107) mmol/L BUN (9-20) mg/dL Creatinine (0.66-1.25) mg/dL Glucose (74-99) mg/dL POC Glucose (mg/dL) 236 H 319 H 348 H (75-99) mg/dL Calcium (8.4-10.2) mg/dL 09/10/21 09/10/21 Range/Units 05:41 07:11 Sodium 124 L (137-145) mmol/L Chloride 93 L (98-107) mmol/L BUN 98 H (9-20) mg/dL Creatinine 6.08 H (0.66-1.25) mg/dL Glucose 352 H (74-99) mg/dL POC Glucose (mg/dL) 404 H (75-99) mg/dL Calcium 8.2 L (8.4-10.2) mg/dL Microbiology - Last 24 Hours (Table) 09/08/21 18:32 Gram Stain - Preliminary Dialysate Body Fluid Culture - Preliminary Assessment and Plan Plan: Assessment: 1. End-stage renal disease maintained on peritoneal dialysis. 2. Hyponatremia status post 3% saline. Stable. Partially due to hyperglycemia. 3. Covid-19 pneumonia. 4. Chronic kidney disease mineral bone disease maintained on PhosLo. 5. Hypertension with chronic kidney disease. Stable. 6. Diabetes mellitus. 7. ESBL E. coli peritonitis. Patient's fluid white count was only 3 and 0 on repeat. Possibly contamination? Plan: Maintain current PD changes. F/u repeat culture. Maintain intraperitoneal meropenem 1 g with one exchange daily (started 1 11/08/2020). ID following. Receiving TPN.
[2021-09-10 10:46] LABS: Phosphorus 3.3 mg/dL (2.4-5.1)
[2021-09-10 10:59] LABS: Glucose,Whole Blood 387 mg/dL (75-99)
[2021-09-10] MEDS: [UNRECOGNIZED DRUG - NUTRITION] IV SCH ×5 (11:04)
--- NOTE | 2021-09-10 12:10 | P.CONS ---
History of Present Illness - Reason for Consult Consult date: 09/09/21 peritoneal fluid ESBL + Requesting physician: Aman Ocampo - Chief Complaint abd pain x few days - History of Present Illness History of Present Illness : Patient is a 76-year-old male with a past medical history significant for end-stage renal disease on peritoneal dialysis patient presented to the [facility] ER about a week ago for evaluation of abdominal discomfort more of a dull aching pain no nausea no vomiting no diarrhea or any constipation no fever or chills patient on presentation to the hospital was afebrile and no fever has been recorded subsequently patient did have a normal white count on admission studies up to 13.3 on the however is down to 10.3 as of 09/04/2021 urine has been negative liver exams has been normal patient did have a peritoneal fluid done on the which was yellow clear only 3 nucleated cells however the culture came back positive with ESBL E. coli patient was started on meropenem through the dialysis infectious he was consulted for further management patient also have a positive Covid test during this admission and the patient did have a chest x-ray patchy infiltrates and is being monitored by pulmonary services patient did have CT abdominal pelvis done on 03 September see my diverticulosis without diverticulitis nonobstructing large calculus right pelvis Review of system: CONSTITUTIONAL: Positive for weakness, denies fever. EYES: No complaint. ENT: No complaint. RESPIRATORY: No complaint. CARDIOVASCULAR: No complaint. GENITOURINARY: No complaint. GASTROINTESTINAL: As per history of present illness. MUSCULOSKELETAL: No complaint. INTEGUMENTARY : No complaint. PSYCHOLOGIC: No complaint. ENDOCRINE: No complaint. NEUROLOGIC: No complaint. Past medical history : Reviewed, documented below Past surgical history : Reviewed, documented below Social history: Reviewed, documented below Medications: Reviewed, as documented below EXAMINATION: Vital sigans= Reviewed and documented below GENERAL DESCRIPTION: Elderly male up in the chair, no distress. No tachypnea or accessory muscle of respiration use. HEENT: Shows Pallor , no scleral icterus. Oral mucous membrane is dry. NECK: Trachea central, no thyromegaly. LUNGS: Unlabored breathing. Decrease intensity of breath sounds. No wheeze or crackle. HEART: S1, S2, regular rate and rhythm. ABDOMEN: Soft, no tenderness , no evidence of any tunnel cellulitis guarding or rigidity EXTREMITIES: No edema feet SKIN: No rash, no masses palpable. NEUROLOGICAL: The patient is awake, alert, oriented x3, mood and affect normal. LABS AND RADIOLOGY: Reviewed results see below Assessment : Patient presented to hospital about a week ago with abdominal pain in this patient who did not have any fever or elevated white count admission CT abdominal pelvis did not show any acute findings patient did have a peritoneal fluid evaluation which shows only 3 WBC culture showing ESBL E. coli could be contaminated as the patient clinic not behaving as PD catheter associated peritonitis with repeat peritoneal fluid that was done yesterday is essentially normal Plan: 1-we will discontinue the meropenem and the peritoneal fluid at the clinic suspicious low PD catheter associated peritonitis 2-if the patient spiked any fever or any worsening of his abdominal pain fluid will be rechecked and antibiotic started if needed We will follow on clinical condition and cultures to further adjust medication if needed Thank you for this consultation we will follow the patient along with you Past Medical History Past Medical History: Heart Failure, Diabetes Mellitus, Dialysis, Hypertension, Renal Disease History of Any Multi-Drug Resistant Organisms: None Reported Past Surgical History: Coronary Bypass/CABG, Heart Catheterization Past Psychological History: No Psychological Hx Reported Smoking Status: Never smoker Past Alcohol Use History: None Reported Past Drug Use History: None Reported Medications and Allergies Home Medications Medication Instructions Recorded Confirmed Type Ascorbic Acid [Vitamin C] 500 mg PO DAILY 09/02/21 09/02/21 History Aspirin EC [Ecotrin Low Dose] 81 mg PO Q72H 09/02/21 09/02/21 History Calcium Acetate [Phoslo] 1,334 mg PO TID-W/MEALS 09/02/21 09/02/21 History Calcium Acetate [Phoslo] 667 mg PO BID PRN 09/02/21 09/02/21 History Carvedilol [Coreg] 25 mg PO BID PRN 09/02/21 09/02/21 History Cholecalciferol [Vitamin D3 (25 50 mcg PO DAILY 09/02/21 09/02/21 History Mcg = 1000 Iu)] Digestive Enzymes 1 tab PO TID-W/MEALS 09/02/21 09/02/21 History Insulin Glargine,Hum.rec.anlog 6 - 12 unit SQ DAILY PRN 09/02/21 09/02/21 History [Lantus Solostar Pen] Multivitamin-Multi Mineral Liquid 1 dose PO DAILY 09/02/21 09/02/21 History Dell-3 Fatty Acids/Fish Oil [Fish 1 cap PO DAILY 09/02/21 09/02/21 History Oil 1,000 mg Softgel] Ubidecarenone [Co Q-10] 100 mg PO DAILY 09/02/21 09/02/21 History Allergies Allergy/AdvReac Type Severity Reaction Status Date / Time citric acid Allergy Rash/Hives Verified 09/02/21 21:39 Physical Exam Vitals: Vital Signs Temp Pulse Pulse Resp BP BP Pulse Ox 09/09/21 10:18 98.7 F 71 16 138/63 95 09/09/21 09:00 98.1 F 69 18 132/62 93 L 09/09/21 05:49 98.5 F 82 16 161/61 95 09/09/21 02:35 98.5 F 89 16 157/69 93 L 09/09/21 01:40 98.1 F 80 18 172/70 97 09/08/21 22:18 98.7 F 70 16 162/66 94 L 09/08/21 21:01 98.4 F 71 16 169/77 96 09/08/21 18:22 98.8 F 75 17 170/73 94 L 09/08/21 14:00 97.9 F 71 17 158/77 96 Intake and Output 09/08/21 09/09/21 09/09/21 22:59 06:59 14:59 Intake Total 40.274 71.038 21.127 Balance 40.274 71.038 21.127 Intake: Intake, IV Titration 40.274 71.038 21.127 Amount Insulin Regular 100 unit 40.274 71.038 21.127 In Sodium Chloride 0.9% 100 ml @ Titrate IV .Q0M [facility] Rx#:[id number] Other: Voiding Method CAPD CAPD # Voids 0 Results CBC & Chem 7: 09/04/21 04:04 09/10/21 05:41 Labs: Abnormal Lab Results - Last 24 Hours (Table) 09/08/21 09/08/21 09/08/21 Range/Units 11:17 11:55 14:17 Sodium (137-145) mmol/L Chloride (98-107) mmol/L BUN (9-20) mg/dL Creatinine (0.66-1.25) mg/dL Glucose (74-99) mg/dL POC Glucose (mg/dL) 170 H 181 H 262 H (75-99) mg/dL Phosphorus (2.4-5.1) mg/dL 09/08/21 09/08/21 09/08/21 Range/Units 16:51 19:10 21:30 Sodium (137-145) mmol/L Chloride (98-107) mmol/L BUN (9-20) mg/dL Creatinine (0.66-1.25) mg/dL Glucose (74-99) mg/dL POC Glucose (mg/dL) 273 H 303 H 324 H (75-99) mg/dL Phosphorus (2.4-5.1) mg/dL 09/08/21 09/09/21 09/09/21 Range/Units 23:17 01:25 03:15 Sodium (137-145) mmol/L Chloride (98-107) mmol/L BUN (9-20) mg/dL Creatinine (0.66-1.25) mg/dL Glucose (74-99) mg/dL POC Glucose (mg/dL) 347 H 356 H 302 H (75-99) mg/dL Phosphorus (2.4-5.1) mg/dL 09/09/21 09/09/21 09/09/21 Range/Units 05:22 05:43 05:43 Sodium 124 L (137-145) mmol/L Chloride 95 L (98-107) mmol/L BUN 96 H (9-20) mg/dL Creatinine 6.08 H (0.66-1.25) mg/dL Glucose 263 H (74-99) mg/dL POC Glucose (mg/dL) 292 H (75-99) mg/dL Phosphorus 1.6 L (2.4-5.1) mg/dL 09/09/21 09/09/21 Range/Units 07:29 09:32 Sodium (137-145) mmol/L Chloride (98-107) mmol/L BUN (9-20) mg/dL Creatinine (0.66-1.25) mg/dL Glucose (74-99) mg/dL POC Glucose (mg/dL) 188 H 213 H (75-99) mg/dL Phosphorus (2.4-5.1) mg/dL Microbiology - Last 24 Hours (Table) 09/08/21 18:32 Gram Stain - Preliminary Dialysate Body Fluid Culture - Preliminary 09/02/21 20:48 Blood Culture - Final Blood No Growth after 144 hours 09/02/21 20:48 Blood Culture - Final Blood No Growth after 144 hours
[2021-09-10 13:55] VITALS: BMI 27.6
[2021-09-10 16:10] LABS: Glucose,Whole Blood 234 mg/dL (75-99)
--- NOTE | 2021-09-10 16:55 | P.PN ---
Subjective Progress Note Date: 09/10/21 Principal diagnosis: Severe hyponatremia, acute metabolic encephalopathy This is a 76-year-old white male with history of multiple medical problems including end-stage renal disease, on peritoneal dialysis, known history of diabetes, congestive heart failure, coronary artery disease and previous CABG, patient presented to the ER yesterday with 1 day history of abdominal pain. Patient was also noted to be quite confused, workup included a CT of the abdomen and pelvis which came back negative. However his labs were quite abnormal, and his sodium was noted to be 104. The patient himself is a very poor historian, could not get any information from the patient seems to be extremely confused. Patient was also noted to have abnormal renal profile with a BUN of 79 creatini ne of 7.34, and he had positive PCR for COVID-19 infection. No chest x-ray was done in the ER, hence short the after I evaluated the patient, chest x-ray was ordered. The meantime the patient is on room air, his O2 sats was 92-97% on room air. Is afebrile, blood pressure is elevated at 149/96. Upon admission and when I was notified about this patient last night, his PCR for COVID-19 was pending. And I recommended starting the patient on slow infusion of 3% saline and slow correction of his hyponatremia. This morning repeat sodium is 108. Nephrology is yet to see the patient today regarding his chronic renal failure/peritoneal dialysis, and regarding his profound and severe hyponatremia. Chest x-ray showed scattered bilateral infiltrates peripherally and at the bases mostly. Clinically, the patient looks euvolemic, no history to suggest nausea vomiting diarrhea. Patient was reevaluated today on 09/04/2021, patient remains in the ICU, remains on 3% saline for profound hyponatremia, his sodium is correcting slowly. He was seen by nephrology, and the plan is to discontinue 3% later on today. It is running at 20 mL per hour. Patient developed significant hypertension yesterday and agitation, placed on Precedex and he was also placed on clevidipine extra. His blood pressure today seems to be better controlled. However the patient still requires Precedex. Seems to be calm, patient is undergoing peritoneal dialysis. Today I recommended a PICC line and possibly starting the patient on TPN. Nurse tried to put a nasogastric tube in this patient, however he was extremely agitated and he kept pulling it out. I believe the best mode of nutrition for this patient at this point would have to be TPN. Sodium today is up to 116, patient presented initially with a sodium of 104. CBC is relatively normal renal profile is abnormal with a BUN of 80 creatinine 7.57, patient is on peritoneal dialysis. Pulmonary-wilburn, patient is on a couple of liters of oxygen, not in distress, although the patient did have positive PCR for COVID-19 infection, and his chest x-ray on admission showed multifocal opacities consistent with COVID-19 pneumonia The patient is seen today 09/05/2029 in follow-up in the intensive care unit. He was quite a bit more awake and alert today compared to yesterday. He is oriented 2. He is maintaining O2 saturations in the 90s on 2 L/m per nasal cannula. He is receiving peritoneal dialysis every 6 hours. He is currently on 3% normal saline at 35 ML's per hour. Precedex at 0.8 mcgkg/hr. Clevidipine at 2 mg per hour. He is receiving TPN for nourishment at 30 MLS per hour to be increased to 75 ML's. Peritoneal fluid cultures are pending. Blood cultures reveal no growth to date. Current sodium is 119. Potassium 3.1. Chloride 89. Bicarb 23. BUN 73. Creatinine 6.81. Glucose 292. He is remaining in sinus rhythm. Swallow evaluation pending. The patient is seen today 09/06/2021 in follow-up in the intensive care unit. He is currently alert and oriented 3. He is maintaining O2 saturations in the mid 90s on 2 L/m per nasal cannula. Afebrile. He is doing quite well. He is swallowing well. He remains on clevidipine at 8 mg per hour. He's been off the Precedex about 24 hours now. His sodium is 122. Potassium 3.3. BUN 73. Creatinine 6.28. Glucose 301. Calcium 7.5. He remains on Decadron. Heparin for DVT prophylaxis. Remains on TPN and lipids for nutritional support. The patient is seen today 09/07/2021 in follow-up in the intensive care unit. He is currently sitting up in a chair at the bedside. Awake and alert in no acute distress. He is maintaining good O2 saturations in the 90s on room air. He remains on TPN for nutritional support at 75 ML's per hour. No IV fluids. Blood cultures reveal no growth to date. Peritoneal fluid cultures pending. Current sodium 122. Potassium 3.7. Creatinine 6.42. Glucose 239. He remains on Decadron, vitamin supplements, heparin for DVT prophylaxis. The patient is seen today 09/10/2021 in follow-up on the regular medical floor. He is currently sitting up in bed. Awake and alert in no acute distress. He is maintaining O2 saturations in the 90s on room air. He does receive peritoneal dialysis. Creatinine today is 6.08. Sodium 124. No IV fluids. He is continued on subcu heparin, Decadron, vitamin supplements. Tibial fluid cultures were positive for E. coli. Being nourished with TPN and lipids. Objective - Vital Signs Vital signs: Vital Signs Temp 98.6 F 09/10/21 14:13 Pulse 78 09/10/21 14:13 Resp 18 09/10/21 14:13 BP 135/63 09/10/21 14:13 Pulse Ox 96 09/10/21 14:13 Intake & Output 09/09/21 09/10/21 09/10/21 18:59 06:59 18:59 Intake Total 145.621 7667.25 1037.75 Output Total 100 25 Balance 754.214 8079.25 1012.75 Weight 77.5 kg 77.5 kg Intake: Intake, IV Titration 126.884 946.25 1037.75 Amount Insulin Regular 100 unit 26.884 In Sodium Chloride 0.9% 100 ml @ Titrate IV .Q0M [facility] Rx#:[id number] Sodium Chloride 4Meq/ml 946.25 1037.75 Vial 36 meq Potassium Chloride 20 meq In Amino Acid 5%-D20w+Lytes*E* 1, 000 ml @ 75 mls/hr IV .BY DURATION [facility] Rx#: [id number] Sodium Phosphate 10 mmol 100 In Sodium Chloride 0.9% 100 ml @ 50 mls/hr IVPB Q2H [facility] Rx#:[id number] Oral 200 Output: Urine 100 25 Other: Voiding Method CAPD CAPD # Voids 1 - Exam GENERAL EXAM: Alert, oriented 3, 76-year-old male patient, on room air, comfort able in no apparent distress. HEAD: Normocephalic. EYES: Normal reaction of pupils, equal size. NOSE: Clear with pink turbinates. THROAT: No erythema or exudates. NECK: No masses, no JVD. CHEST: No chest wall deformity. LUNGS: Equal air entry with faint crackles in the posterior bases. CVS: S1 and S2 normal with no audible murmur, regular rhythm. ABDOMEN: Peritoneal catheter exit site is clean and dry. No hepatosplenomegaly, normal bowel sounds, no guarding or rigidity. SPINE: No scoliosis or deformity SKIN: No rashes CENTRAL NERVOUS SYSTEM: No focal deficits, tone is normal in all 4 extremities. EXTREMITIES: PICC line to the left upper extremity There is no peripheral edema. No clubbing, no cyanosis. Peripheral pulses are intact. - Labs CBC & Chem 7: 09/04/21 04:04 09/10/21 05:41 Labs: Abnormal Lab Results - Last 24 Hours (Table) 09/09/21 09/09/21 09/10/21 Range/Units 16:55 20:12 05:41 Sodium 124 L (137-145) mmol/L Chloride 93 L (98-107) mmol/L BUN 98 H (9-20) mg/dL Creatinine 6.08 H (0.66-1.25) mg/dL Glucose 352 H (74-99) mg/dL POC Glucose (mg/dL) 319 H 348 H (75-99) mg/dL Calcium 8.2 L (8.4-10.2) mg/dL 09/10/21 09/10/21 09/10/21 Range/Units 07:11 10:53 16:03 Sodium (137-145) mmol/L Chloride (98-107) mmol/L BUN (9-20) mg/dL Creatinine (0.66-1.25) mg/dL Glucose (74-99) mg/dL POC Glucose (mg/dL) 404 H 387 H 234 H (75-99) mg/dL Calcium (8.4-10.2) mg/dL Microbiology - Last 24 Hours (Table) 09/08/21 18:32 Gram Stain - Preliminary Dialysate Body Fluid Culture - Preliminary Assessment and Plan Assessment: 1 Altered mental status secondary to severe hypovolemic hyponatremia, , improved. Alert and oriented 3 today. Sodium 124. 2 Acute COVID-19 Infection, no significant pulmonary involvement. On room air. 3 Chronic renal failure, on peritoneal dialysis 4 History of coronary disease with previous coronary artery bypass grafting 5 Diabetes mellitus 6 Hypertension Plan: The patient was seen and evaluated by Dr. Jon San and on room air Continue TPN for now We will continue to follow I, the cosigning physician, performed a history & physical examination of the patient. Lungs sounds with crackles in the bilateral bases. Maintaining good O2 saturations in the 90s on room air. I discussed the assessment and plan of care with my nurse practitioner, Danae Saleh. I attest to the above note as dictated by her.
--- NOTE | 2021-09-10 18:21 | P.PN ---
Subjective This is a pleasant 76 years old male with past medical history of Heart Failure, Diabetes Mellitus, renal disease on peritoneal Dialysis, Hypertension, history of Coronary Bypass/CABG, Patient presents because of abdominal pain per emergency room Note however patient found to have be confused with hypernatremia His sodium on admission was 104, earlier this morning was 108 and ended in weight respectively. patient currently remains in the ICU confused, does not follow commands, he is also on restraints. He denies any chest pain or abdominal pain. His abdomen looks soft and there is dialysis to running out of his left lower quadrant of abdomen, not connected to anything. His abdomen is soft with no tenderness or guarding. No rebound tenderness he moves all extremities equally. Patient is poor historian On admission he is afebrile, his breathing rate around 11, blood pressure 174/96 and he is saturating 95% on room air. WBC 6.9 and 13.3. Rest of CBC is unremarkable. Sodium on admission was low at 104, currently is 108. Unknown baseline. Creatinine elevated 7.3. Troponin is elevated at 0.05 Urine analysis is showing 2+ protein, 2+ glucose. Hamilton v. is detected CT of the abdomen and pelvis with no contrast: Sigmoid diverticulosis without diverticulitis. Atherosclerotic vascular disease. None obstructing large calculus right renal pelvis In the emergency room patient received Protonix, pain medication Nephrology and ice team were consulted already 09/04/2021 Patient is confused and sleepy, does not follow command. Sitter at bedside. His metabolic encephalopathy most likely secondary to hypernatremia. Neurologist on the case. EKG and CT of the brain are pending. He is not in respiratory distress and abdomen is soft. Distal on 3% normal saline at 20 ml/h. Also he was started on calviprex her blood pressure was elevated last night 194/85. Sodium today improved 214. Echocardiogram showed ejection fraction of 55-60% with moderate aortic stenosis Patient continued to 3% NS, calviprex DRIP, multiple vitamins and dexamethasone. Also he is on subcutaneous heparin for DVT prophylaxis 09/05/2021 Patient today is awake and alert and oriented to place, he knows he is [facility] but he still disoriented to time person. He follows commands approp riately. He denies any specific complaints. Improved. 125 and 3% saline was discontinued and patient was started on TPN pending swallow evaluation. Blood pressure is a stable while he is still on Calviprex drip, last blood pressure 150/71. He remains on dexamethasone, multiple vitamins forego with infection but he is saturating 95 % on 2 L/m of oxygen. We'll keep monitoring sodium 09/06/2021 Patient mentation keeps improving, neurology signed off, sodium is 122 and nephrology of the case recommended to increase salt intake with food. This morning he was complaining of from burning chest pain with markedly elevated troponin in view of his kidney disease. Echocardiogram area was with no hypokinesia but he has ejection fraction of 55-60% with moderate aortic stenosis, DrAdán office today and was admitted for uncontrolled blood pressure with systolic or than 190 also he is on Norvasc 10 mg on Coreg 25 mg and hydralazine when necessary. Blood pressure improved through the day systolic down to 160s. Cardiology team consulted. Patient remains on dexamethasone, multiple vitamins, calviprex drip 09/07/2021 Patient mentation looks like at baseline. He is oriented to place only but not to time or person. He knows he is in [facility]. No chest pain. No other complaints. Blood pressure is slightly elevated 174/81, other vitals stable. Sodium is stable at 122 sodium bicarb tablets added by admin prog coord. A still on steroids and multiple vitamins Transferred to the general medical floor today 09/08/2021 Is awake and alert at baseline. He was asking when he can be discharged. He denies headache. No chest pain or dyspnea. He is hemodynamically stable. Blood pressure this morning was 126/62. Afebrile. Sodium from yesterday we will is 122. Sodium level today still pending. Glucose was elevated more than 300 and he was placed on insulin drip. Risks are 10 his Levemir 6012 units at home but at 15 units daily. Also he is on NovoLog 10 units with meals. He is still dexamethasone, multiple vitamins, Norvasc and Coreg 25 mg. I discussed the case with cardiology team and the recommend to keep the patient on aspirin 09/09/2021 Patient awake and alert, confused at baseline but he is oriented to place he knows he is in [facility]. He denies chest pain or abdominal pain or any other symptoms. He is still undergoing peritoneal dialysis through his abdomina l cavity peritoneal tube. However culture came back positive for E. coli suspicious for infection and patient was started on meropenem and consult infectious disease team. Vitals stable, elevated blood pressure is better controlled today 138/63. Glucose is around 200 and he is on insulin drip 2.5 units per hour, start him on Levemir once daily and insulin sliding scale as patient is not eating much, he ate only little of his breakfast this morning. Sodium improved and today is 124. Patient is still getting TPN He remains on dexamethasone and multiple vitamins for his covid infection 09/10/2021 Patient awake with no specific complaint. He does not look in distress but he has low appetite and he only 25% of his lunch through the whole day. He still on TPN Were gone to check swallow evaluation for him. In the meantime he remains on peritoneal dialysis. His E coli in the peritoneal fluid is most likely contamination, meropenem as per ID team recommendation. Patient also with no signs and symptoms of peritonitis, lack no abdominal pain, discomfort, no fever or leukocytosis. Pulmonary status regarding his Covid infection is a stable and remains on dexamethasone, vitamin C, D and zinc, This dexamethasone was stopped. He remains on insulin which increased dose 18 up to 23 units daily plus insulin sliding scale Sodium is stable at 124 Prognosis still guarded Objective - Vital Signs Vital signs: Vital Signs Temp 98.6 F 09/10/21 14:13 Pulse 78 09/10/21 14:13 Resp 18 09/10/21 14:13 BP 135/63 09/10/21 14:13 Pulse Ox 96 09/10/21 14:13 Intake & Output 09/09/21 09/10/21 09/10/21 18:59 06:59 18:59 Intake Total 288.937 0139.25 1037.75 Output Total 100 25 Balance 122.091 3304.25 1012.75 Weight 77.5 kg 77.5 kg Intake: Intake, IV Titration 126.884 946.25 1037.75 Amount Insulin Regular 100 unit 26.884 In Sodium Chloride 0.9% 100 ml @ Titrate IV .Q0M RAIN Rx#:[id number] Sodium Chloride 4Meq/ml 946.25 1037.75 Vial 36 meq Potassium Chloride 20 meq In Amino Acid 5%-D20w+Lytes*E* 1, 000 ml @ 75 mls/hr IV .BY DURATION RAIN Rx#: [id number] Sodium Phosphate 10 mmol 100 In Sodium Chloride 0.9% 100 ml @ 50 mls/hr IVPB Q2H RAIN Rx#:[id number] Oral 200 Output: Urine 100 25 Other: Voiding Method CAPD CAPD # Voids 1 - Exam -GENERAL: The patient is sleepy, not in any acute distress. Well developed, well nourished. HEENT: Pupils are round and equally reacting to light. EOMI. No scleral icterus. No conjunctival pallor. Normocephalic, atraumatic. No pharyngeal erythema. No thyromegaly. CARDIOVASCULAR: S1 and S2 present. No murmurs, rubs, or gallops. PULMONARY: Chest is clear to auscultation, no wheezing or crackles. -ABDOMEN: Soft, nontender, nondistended, normoactive bowel sounds. No palpable organomegaly. Peritoneal tube from the left lower quadrant, not connected MUSCULOSKELETAL: No joint swelling or deformity. EXTREMITIES: No cyanosis, clubbing, or pedal edema. NEUROLOGICAL: Gross neurological examination did not reveal any focal deficits. SKIN: No rashes. no petechiae. - Labs CBC & Chem 7: 09/04/21 04:04 09/10/21 05:41 Labs: Abnormal Lab Results - Last 24 Hours (Table) 09/09/21 09/09/21 09/10/21 Range/Units 16:55 20:12 05:41 Sodium 124 L (137-145) mmol/L Chloride 93 L (98-107) mmol/L BUN 98 H (9-20) mg/dL Creatinine 6.08 H (0.66-1.25) mg/dL Glucose 352 H (74-99) mg/dL POC Glucose (mg/dL) 319 H 348 H (75-99) mg/dL Calcium 8.2 L (8.4-10.2) mg/dL 09/10/21 09/10/21 09/10/21 Range/Units 07:11 10:53 16:03 Sodium (137-145) mmol/L Chloride (98-107) mmol/L BUN (9-20) mg/dL Creatinine (0.66-1.25) mg/dL Glucose (74-99) mg/dL POC Glucose (mg/dL) 404 H 387 H 234 H (75-99) mg/dL Calcium (8.4-10.2) mg/dL Microbiology - Last 24 Hours (Table) 09/08/21 18:32 Gram Stain - Preliminary Dialysate Body Fluid Culture - Preliminary Assessment and Plan Assessment: Decreased oral intake, check for dysphagia severe hyponatremia, improving Altered mental status, most likely metabolic encephalopathy secondary to hyponatremia, improved Covid infection with no hypoxia peritoneal fluid infection with culture positive for E. coli, most likely contamination rather than infection, possibility is low for peritonitis secondary to dialysis catheter Chest pain Diabetes mellitus Chronic heart failure Hypertension Elevated troponin History of coronary artery disease status post CABG History of renal disease on dialysis Right kidney stone Plan: This is a pleasant 76 years old male who presents with hypernatremia Continue with TPN. Check swallow evaluation. Infectious disease consult on the case Sodium is a stable Continue with peritoneal dialysis. Nephrology team recommendation Pulmonary/Critical team consult Labs and medication were reviewed.. Continue same treatment. Continue with symptomatic treatment. Resume home medication. Monitor lytes and vitals. DVT and GI prophylaxis. Further recommendations depends on the clinical course of the patient DVT prophylaxis: Subcutaneous heparin GI Prophylaxis: Ppi Prognosis is guarded
[2021-09-10 20:46] LABS: Glucose,Whole Blood 181 mg/dL (75-99)
--- NOTE | 2021-09-10 22:29 | PN ---
PROGRESS NOTE DATE OF SERVICE: 09/10/2021 REASON FOR FOLLOWUP: Positive ascitic fluid culture with ESBL E coli. INTERVAL HISTORY: Patient is currently afebrile. The patient is breathing comfortably. The patient denies having any chest pain, shortness of breath or cough. No abdominal pain. No diarrhea. PHYSICAL EXAMINATION: Blood pressure 147/86, pulse of 73, temperature 98.2. He is 98% on room air. General description is an elderly male lying in bed in no distress. Respiratory system: Unlabored breathing. A few crackles in posterior bases. No wheeze. Heart S1, S2. Regular rate and rhythm. Abdomen soft, no guarding, no rigidity. Extremities: No edema of the feet. LABS: Creatinine 6.08, white count of 10.3 . Repeat cultures so far negative. DIAGNOSTIC IMPRESSION AND PLAN: Patient with positive culture from the dialysis fluid of ESBL E coli. Overall fluid analysis was negative. Possible contamination. We will monitor the patient closely off antibiotic therapy. We will repeat a CBC, CRP tomorrow morning and continue supportive care. MMODL / IJN: [id number] /
[2021-09-11 00:23] LABS: Appearance,BF Clear; Color,BF Colorless; Nucleated Cells, Body Fluid 4 /uL; RBC, Body Fluid 4 /uL
[2021-09-11] MEDS: NITROGLYCERIN OINT 1 INCH/GM PACKET TOPICAL SCH ×4 (00:39→17:00)
[2021-09-11] MEDS: [UNRECOGNIZED DRUG - NUTRITION] IV SCH ×10 (00:43→05:30)
[2021-09-11] MEDS: DIALYSIS (PERIT 1.5%) 2,000 ML 30 G/2,000 ML BAG INTRAPERIT SCH ×3 (02:30→20:29)
[2021-09-11] MEDS: hydrALAZINE HCL 20 MG/ML 1 ML VIAL IVP PRN (05:29)
[2021-09-11] MEDS ORDERED: INSULIN DETEMIR (LEVEMIR) 100 UNIT/ML SYR SQ SCH (07:00)
[2021-09-11 07:35] LABS: Glucose,Whole Blood 340 mg/dL (75-99)
[2021-09-11] MEDS: INSULIN ASPART (NovoLOG) 100 UNIT/ML VIAL SQ SCH ×4 (07:53→20:56)
[2021-09-11] MEDS: HEPARIN SODIUM,PORCINE/PF 5,000 UNIT/0.5 ML SYRINGE SQ SCH ×2 (07:53→20:56)
[2021-09-11] MEDS: DOCUSATE 100 MG CAP PO SCH (07:53)
[2021-09-11] MEDS: SODIUM BICARBONATE TAB 650 MG TAB PO SCH ×2 (07:54→20:56)
[2021-09-11] MEDS: ASCORBIC ACID 500 MG TAB PO SCH (07:54)
[2021-09-11] MEDS: ASPIRIN 81 MG PO SCH (07:54)
[2021-09-11] MEDS: PANTOPRAZOLE 40 MG TABLET PO SCH (07:54)
[2021-09-11] MEDS: carvediloL 12.5 MG TAB PO SCH ×2 (07:54→16:54)
[2021-09-11] MEDS: amLODIPine 10 MG TAB PO SCH (07:54)
[2021-09-11] MEDS: CHOLECALCIFEROL 25 MCG (1000 IU) TABLET PO SCH (07:54)
[2021-09-11 09:21] LABS: ALT 24 U/L (4-49); AST 29 U/L (17-59); African American GFR (CKD) 9 (>60 ml/min/1.73 sqM); Albumin 2.3 g/dL (3.5-5.0); Alkaline Phosphatase 61 U/L (38-126); Anion Gap 6 mmol/L; C Reactive Protein 1.7 mg/dL (<1.0); Calcium 8.3 mg/dL (8.4-10.2); Carbon Dioxide 25 mmol/L (22-30); Chloride 93 mmol/L (98-107); Globulin 2.4 g/dL; Glucose 335 mg/dL (74-99); Non-African American GFR(CKD) 8 (>60 ml/min/1.73 sqM); Phosphorus 3.5 mg/dL (2.5-4.5); Potassium 4.7 mmol/L (3.5-5.1); Sodium 124 mmol/L (137-145); Total Bilirubin 0.4 mg/dL (0.2-1.3); Total Protein 4.7 g/dL (6.3-8.2)
[2021-09-11 09:30] LABS: Blood Urea Nitrogen 103 mg/dL (9-20)
[2021-09-11 09:31] LABS: Basophils % (A) 0 %; Eosinophils # (A) 0.2 k/uL (0-0.7); Eosinophils % (A) 2 %; HCT 32.2 % (39.0-53.0); Lymphocytes # (A) 0.5 k/uL (1.0-4.8); Lymphocytes % (A) 5 %; MCH 31.6 pg (25.0-35.0); MCHC 33.9 g/dL (31.0-37.0); Mean Platelet Volume 7.6; Monocytes # (A) 0.6 k/uL (0-1.0); Monocytes % (A) 7 %; Neutrophils # (A) 7.5 k/uL (1.3-7.7); Neutrophils % (A) 84 %; Platelet Count 255 k/uL (150-450); RBC 3.47 m/uL (4.30-5.90); WBC 8.9 k/uL (3.8-10.6)
[2021-09-11 09:35] LABS: HGB 10.9 gm/dL (13.0-17.5)
[2021-09-11 11:43] LABS: Glucose,Whole Blood 327 mg/dL (75-99)
--- NOTE | 2021-09-11 12:30 | P.PN ---
Subjective This is a pleasant 76 years old male with past medical history of Heart Failure, Diabetes Mellitus, renal disease on peritoneal Dialysis, Hypertension, history of Coronary Bypass/CABG, Patient presents because of abdominal pain per emergency room Note however patient found to have be confused with hypernatremia His sodium on admission was 104, earlier this morning was 108 and ended in weight respectively. patient currently remains in the ICU confused, does not follow commands, he is also on restraints. He denies any chest pain or abdominal pain. His abdomen looks soft and there is dialysis to running out of his left lower quadrant of abdomen, not connected to anything. His abdomen is soft with no tenderness or guarding. No rebound tenderness he moves all extremities equally. Patient is poor historian On admission he is afebrile, his breathing rate around 11, blood pressure 174/96 and he is saturating 95% on room air. WBC 6.9 and 13.3. Rest of CBC is unremarkable. Sodium on admission was low at 104, currently is 108. Unknown baseline. Creatinine elevated 7.3. Troponin is elevated at 0.05 Urine analysis is showing 2+ protein, 2+ glucose. Hamilton v. is detected CT of the abdomen and pelvis with no contrast: Sigmoid diverticulosis without diverticulitis. Atherosclerotic vascular disease. None obstructing large calculus right renal pelvis In the emergency room patient received Protonix, pain medication Nephrology and ice team were consulted already 09/04/2021 Patient is confused and sleepy, does not follow command. Sitter at bedside. His metabolic encephalopathy most likely secondary to hypernatremia. Neurologist on the case. EKG and CT of the brain are pending. He is not in respiratory distress and abdomen is soft. Distal on 3% normal saline at 20 ml/h. Also he was started on calviprex her blood pressure was elevated last night 194/85. Sodium today improved 214. Echocardiogram showed ejection fraction of 55-60% with moderate aortic stenosis Patient continued to 3% NS, calviprex DRIP, multiple vitamins and dexamethasone. Also he is on subcutaneous heparin for DVT prophylaxis 09/05/2021 Patient today is awake and alert and oriented to place, he knows he is [facility] but he still disoriented to time person. He follows commands approp riately. He denies any specific complaints. Improved. 125 and 3% saline was discontinued and patient was started on TPN pending swallow evaluation. Blood pressure is a stable while he is still on Calviprex drip, last blood pressure 150/71. He remains on dexamethasone, multiple vitamins forego with infection but he is saturating 95 % on 2 L/m of oxygen. We'll keep monitoring sodium 09/06/2021 Patient mentation keeps improving, neurology signed off, sodium is 122 and nephrology of the case recommended to increase salt intake with food. This morning he was complaining of from burning chest pain with markedly elevated troponin in view of his kidney disease. Echocardiogram area was with no hypokinesia but he has ejection fraction of 55-60% with moderate aortic stenosis, DrAdán office today and was admitted for uncontrolled blood pressure with systolic or than 190 also he is on Norvasc 10 mg on Coreg 25 mg and hydralazine when necessary. Blood pressure improved through the day systolic down to 160s. Cardiology team consulted. Patient remains on dexamethasone, multiple vitamins, calviprex drip 09/07/2021 Patient mentation looks like at baseline. He is oriented to place only but not to time or person. He knows he is in [facility]. No chest pain. No other complaints. Blood pressure is slightly elevated 174/81, other vitals stable. Sodium is stable at 122 sodium bicarb tablets added by aerospace project manager. A still on steroids and multiple vitamins Transferred to the general medical floor today 09/08/2021 Is awake and alert at baseline. He was asking when he can be discharged. He denies headache. No chest pain or dyspnea. He is hemodynamically stable. Blood pressure this morning was 126/62. Afebrile. Sodium from yesterday we will is 122. Sodium level today still pending. Glucose was elevated more than 300 and he was placed on insulin drip. Risks are 10 his Levemir 6012 units at home but at 15 units daily. Also he is on NovoLog 10 units with meals. He is still dexamethasone, multiple vitamins, Norvasc and Coreg 25 mg. I discussed the case with cardiology team and the recommend to keep the patient on aspirin 09/09/2021 Patient awake and alert, confused at baseline but he is oriented to place he knows he is in [facility]. He denies chest pain or abdominal pain or any other symptoms. He is still undergoing peritoneal dialysis through his abdomina l cavity peritoneal tube. However culture came back positive for E. coli suspicious for infection and patient was started on meropenem and consult infectious disease team. Vitals stable, elevated blood pressure is better controlled today 138/63. Glucose is around 200 and he is on insulin drip 2.5 units per hour, start him on Levemir once daily and insulin sliding scale as patient is not eating much, he ate only little of his breakfast this morning. Sodium improved and today is 124. Patient is still getting TPN He remains on dexamethasone and multiple vitamins for his covid infection 09/10/2021 Patient awake with no specific complaint. He does not look in distress but he has low appetite and he only 25% of his lunch through the whole day. He still on TPN Were gone to check swallow evaluation for him. In the meantime he remains on peritoneal dialysis. His E coli in the peritoneal fluid is most likely contamination, meropenem as per ID team recommendation. Patient also with no signs and symptoms of peritonitis, lack no abdominal pain, discomfort, no fever or leukocytosis. Pulmonary status regarding his Covid infection is a stable and remains on dexamethasone, vitamin C, D and zinc, This dexamethasone was stopped. He remains on insulin which increased dose 18 up to 23 units daily plus insulin sliding scale Sodium is stable at 124 Prognosis still guarded 09/11/2021 Patient mentation is similar over the last few days, his somewhat confused at baseline but he knows in the hospital. No other complaints regarding that however patient is not eating and his reason is that he lost his taste. Patient remains on TPN and swallow evaluation is pending. His sodium was still 124 and he is on fluid restriction. Hemoglobin dropped 14 down to 10.4, we'll keep monitoring closely. WBC is slightly elevated at 10.5. Glucose is still elevated and his Levemir increased today to 23 units. He remains on dexamethasone and multiple vitamins for his covid infection. Antibiotics were stopped by ID team. Objective - Vital Signs Vital signs: Vital Signs Temp 97.5 F L 09/11/21 09:30 Pulse 81 09/11/21 09:30 Resp 22 09/11/21 09:30 BP 156/69 09/11/21 09:30 Pulse Ox 96 09/11/21 09:30 Intake & Output 09/10/21 09/11/21 09/11/21 18:59 06:59 18:59 Intake Total 1037.75 Output Total 25 Balance 1012.75 Weight 77.5 kg Intake: Intake, IV Titration 1037.75 Amount Sodium Chloride 4Meq/ml 1037.75 Vial 36 meq Potassium Chloride 20 meq In Amino Acid 5%-D20w+Lytes*E* 1, 000 ml @ 75 mls/hr IV .BY DURATION [facility] Rx#: [id number] Output: Urine 25 Other: Voiding Method CAPD CAPD # Voids 1 - Exam -GENERAL: The patient is sleepy, not in any acute distress. Well developed, well nourished. HEENT: Pupils are round and equally reacting to light. EOMI. No scleral icterus. No conjunctival pallor. Normocephalic, atraumatic. No pharyngeal erythema. No thyromegaly. CARDIOVASCULAR: S1 and S2 present. No murmurs, rubs, or gallops. PULMONARY: Chest is clear to auscultation, no wheezing or crackles. -ABDOMEN: Soft, nontender, nondistended, normoactive bowel sounds. No palpable organomegaly. Peritoneal tube from the left lower quadrant, not connected MUSCULOSKELETAL: No joint swelling or deformity. EXTREMITIES: No cyanosis, clubbing, or pedal edema. NEUROLOGICAL: Gross neurological examination did not reveal any focal deficits. SKIN: No rashes. no petechiae. - Labs CBC & Chem 7: 09/11/21 08:29 09/11/21 08:29 Labs: Abnormal Lab Results - Last 24 Hours (Table) 09/10/21 09/10/21 09/11/21 Range/Units 16:03 20:44 07:34 RBC (4.30-5.90) m/uL Hgb (13.0-17.5) gm/dL Hct (39.0-53.0) % Lymphocytes # (1.0-4.8) k/uL Sodium (137-145) mmol/L Chloride (98-107) mmol/L BUN (9-20) mg/dL Creatinine (0.66-1.25) mg/dL Glucose (74-99) mg/dL POC Glucose (mg/dL) 234 H 181 H 340 H (75-99) mg/dL Calcium (8.4-10.2) mg/dL C-Reactive Protein (<1.0) mg/dL Total Protein (6.3-8.2) g/dL Albumin (3.5-5.0) g/dL 09/11/21 09/11/21 09/11/21 Range/Units 08:29 08:29 11:42 RBC 3.47 L (4.30-5.90) m/uL Hgb 10.9 L D (13.0-17.5) gm/dL Hct 32.2 L (39.0-53.0) % Lymphocytes # 0.5 L (1.0-4.8) k/uL Sodium 124 L (137-145) mmol/L Chloride 93 L (98-107) mmol/L BUN 103 H* (9-20) mg/dL Creatinine 6.27 H (0.66-1.25) mg/dL Glucose 335 H (74-99) mg/dL POC Glucose (mg/dL) 327 H (75-99) mg/dL Calcium 8.3 L (8.4-10.2) mg/dL C-Reactive Protein 1.7 H (<1.0) mg/dL Total Protein 4.7 L (6.3-8.2) g/dL Albumin 2.3 L (3.5-5.0) g/dL Microbiology - Last 24 Hours (Table) 09/10/21 22:00 Body Fluid Culture - Preliminary Pleural Fluid 09/08/21 18:32 Gram Stain - Preliminary Dialysate Body Fluid Culture - Preliminary Assessment and Plan Assessment: Decreased oral intake, check for dysphagia severe hyponatremia, improving Altered mental status, most likely metabolic encephalopathy secondary to hyponatremia, improved Covid infection with no hypoxia peritoneal fluid infection with culture positive for E. coli, most likely cont amination rather than infection, possibility is low for peritonitis secondary to dialysis catheter Chest pain Diabetes mellitus Chronic heart failure Hypertension Elevated troponin History of coronary artery disease status post CABG History of renal disease on dialysis Right kidney stone Plan: This is a pleasant 76 years old male who presents with hypernatremia Continue with TPN. Check swallow evaluation. Infectious disease consult on the case Sodium is a stable Continue with peritoneal dialysis. Nephrology team recommendation Pulmonary/Critical team consult Labs and medication were reviewed.. Continue same treatment. Continue with symptomatic treatment. Resume home medication. Monitor lytes and vitals. DVT and GI prophylaxis. Further recommendations depends on the clinical course of the patient DVT prophylaxis: Subcutaneous heparin GI Prophylaxis: Ppi Prognosis is guarded
--- NOTE | 2021-09-11 16:10 | P.PN ---
Subjective Progress Note Date: 09/11/21 Principal diagnosis: Severe hyponatremia, acute metabolic encephalopathy This is a 76-year-old white male with history of multiple medical problems including end-stage renal disease, on peritoneal dialysis, known history of diabetes, congestive heart failure, coronary artery disease and previous CABG, patient presented to the ER yesterday with 1 day history of abdominal pain. Patient was also noted to be quite confused, workup included a CT of the abdomen and pelvis which came back negative. However his labs were quite abnormal, and his sodium was noted to be 104. The patient himself is a very poor historian, could not get any information from the patient seems to be extremely confused. Patient was also noted to have abnormal renal profile with a BUN of 79 creatini ne of 7.34, and he had positive PCR for COVID-19 infection. No chest x-ray was done in the ER, hence short the after I evaluated the patient, chest x-ray was ordered. The meantime the patient is on room air, his O2 sats was 92-97% on room air. Is afebrile, blood pressure is elevated at 149/96. Upon admission and when I was notified about this patient last night, his PCR for COVID-19 was pending. And I recommended starting the patient on slow infusion of 3% saline and slow correction of his hyponatremia. This morning repeat sodium is 108. Nephrology is yet to see the patient today regarding his chronic renal failure/peritoneal dialysis, and regarding his profound and severe hyponatremia. Chest x-ray showed scattered bilateral infiltrates peripherally and at the bases mostly. Clinically, the patient looks euvolemic, no history to suggest nausea vomiting diarrhea. Patient was reevaluated today on 09/04/2021, patient remains in the ICU, remains on 3% saline for profound hyponatremia, his sodium is correcting slowly. He was seen by nephrology, and the plan is to discontinue 3% later on today. It is running at 20 mL per hour. Patient developed significant hypertension yesterday and agitation, placed on Precedex and he was also placed on clevidipine extra. His blood pressure today seems to be better controlled. However the patient still requires Precedex. Seems to be calm, patient is undergoing peritoneal dialysis. Today I recommended a PICC line and possibly starting the patient on TPN. Nurse tried to put a nasogastric tube in this patient, however he was extremely agitated and he kept pulling it out. I believe the best mode of nutrition for this patient at this point would have to be TPN. Sodium today is up to 116, patient presented initially with a sodium of 104. CBC is relatively normal renal profile is abnormal with a BUN of 80 creatinine 7.57, patient is on peritoneal dialysis. Pulmonary-wilburn, patient is on a couple of liters of oxygen, not in distress, although the patient did have positive PCR for COVID-19 infection, and his chest x-ray on admission showed multifocal opacities consistent with COVID-19 pneumonia The patient is seen today 09/05/2029 in follow-up in the intensive care unit. He was quite a bit more awake and alert today compared to yesterday. He is oriented 2. He is maintaining O2 saturations in the 90s on 2 L/m per nasal cannula. He is receiving peritoneal dialysis every 6 hours. He is currently on 3% normal saline at 35 ML's per hour. Precedex at 0.8 mcgkg/hr. Clevidipine at 2 mg per hour. He is receiving TPN for nourishment at 30 MLS per hour to be increased to 75 ML's. Peritoneal fluid cultures are pending. Blood cultures reveal no growth to date. Current sodium is 119. Potassium 3.1. Chloride 89. Bicarb 23. BUN 73. Creatinine 6.81. Glucose 292. He is remaining in sinus rhythm. Swallow evaluation pending. The patient is seen today 09/06/2021 in follow-up in the intensive care unit. He is currently alert and oriented 3. He is maintaining O2 saturations in the mid 90s on 2 L/m per nasal cannula. Afebrile. He is doing quite well. He is swallowing well. He remains on clevidipine at 8 mg per hour. He's been off the Precedex about 24 hours now. His sodium is 122. Potassium 3.3. BUN 73. Creatinine 6.28. Glucose 301. Calcium 7.5. He remains on Decadron. Heparin for DVT prophylaxis. Remains on TPN and lipids for nutritional support. The patient is seen today 09/07/2021 in follow-up in the intensive care unit. He is currently sitting up in a chair at the bedside. Awake and alert in no acute distress. He is maintaining good O2 saturations in the 90s on room air. He remains on TPN for nutritional support at 75 ML's per hour. No IV fluids. Blood cultures reveal no growth to date. Peritoneal fluid cultures pending. Current sodium 122. Potassium 3.7. Creatinine 6.42. Glucose 239. He remains on Decadron, vitamin supplements, heparin for DVT prophylaxis. The patient is seen today 09/10/2021 in follow-up on the regular medical floor. He is currently sitting up in bed. Awake and alert in no acute distress. He is maintaining O2 saturations in the 90s on room air. He does receive peritoneal dialysis. Creatinine today is 6.08. Sodium 124. No IV fluids. He is continued on subcu heparin, Decadron, vitamin supplements. Tibial fluid cultures were positive for E. coli. Being nourished with TPN and lipids. The patient is seen today 09/11/2021 in follow-up on the regular medical floor. He remains awake and alert in no acute distress. He is to maintain good O2 saturations in the upper 90s on room air. He's been afebrile. Hemodynamically stable. White count 8.9. Hemoglobin 10.9. Lymphocytes 0.5. Sodium 124. Potassium 4.7. BUN 103. Creatinine 6.27. Blood glucose 335. He is continued on peritoneal dialysis. Objective - Vital Signs Vital signs: Vital Signs Temp 97.7 F 09/11/21 14:14 Pulse 71 09/11/21 14:14 Resp 18 09/11/21 14:14 BP 111/59 09/11/21 14:14 Pulse Ox 97 09/11/21 14:14 Intake & Output 09/10/21 09/11/21 09/11/21 18:59 06:59 18:59 Intake Total 1037.75 525 Output Total 25 Balance 1012.75 525 Weight 77.5 kg Intake: Intake, IV Titration 1037.75 525 Amount Mvi, Adult No.4 with Vit 525 K 10 ml Trace (Conc-1Ml/ Dose) 1 ml Sodium Chloride 4Meq/ml Vial 56 meq Potassium Chloride 14 meq In Amino Acid 5%- D20w+Lytes*E* 1,000 ml @ 75 mls/hr IV .BY DURATION [facility] Rx#:[id number] Sodium Chloride 4Meq/ml 1037.75 Vial 36 meq Potassium Chloride 20 meq In Amino Acid 5%-D20w+Lytes*E* 1, 000 ml @ 75 mls/hr IV .BY DURATION [facility] Rx#: [id number] Output: Urine 25 Other: Voiding Method CAPD CAPD # Voids 1 - Exam GENERAL EXAM: Alert, oriented 3, 76-year-old male, on room air, comfortable in no apparent distress. HEAD: Normocephalic. EYES: Normal reaction of pupils, equal size. NOSE: Clear with pink turbinates. THROAT: No erythema or exudates. NECK: No masses, no JVD. CHEST: No chest wall deformity. LUNGS: Equal air entry with faint crackles in the posterior bases. CVS: S1 and S2 normal with no audible murmur, regular rhythm. ABDOMEN: Peritoneal catheter exit site is clean and dry. No hepatosplenomegaly, normal bowel sounds, no guarding or rigidity. SPINE: No scoliosis or deformity SKIN: No rashes CENTRAL NERVOUS SYSTEM: No focal deficits, tone is normal in all 4 extremities. EXTREMITIES: PICC line to the left upper extremity There is no peripheral edema. No clubbing, no cyanosis. Peripheral pulses are intact. - Labs CBC & Chem 7: 09/11/21 08:29 09/11/21 08:29 Labs: Abnormal Lab Results - Last 24 Hours (Table) 09/10/21 09/10/21 09/11/21 Range/Units 16:03 20:44 07:34 RBC (4.30-5.90) m/uL Hgb (13.0-17.5) gm/dL Hct (39.0-53.0) % Lymphocytes # (1.0-4.8) k/uL Sodium (137-145) mmol/L Chloride (98-107) mmol/L BUN (9-20) mg/dL Creatinine (0.66-1.25) mg/dL Glucose (74-99) mg/dL POC Glucose (mg/dL) 234 H 181 H 340 H (75-99) mg/dL Calcium (8.4-10.2) mg/dL C-Reactive Protein (<1.0) mg/dL Total Protein (6.3-8.2) g/dL Albumin (3.5-5.0) g/dL 11/25/21 11/25/21 11/25/21 Range/Units 08:29 08:29 11:42 RBC 3.47 L (4.30-5.90) m/uL Hgb 10.9 L D (13.0-17.5) gm/dL Hct 32.2 L (39.0-53.0) % Lymphocytes # 0.5 L (1.0-4.8) k/uL Sodium 124 L (137-145) mmol/L Chloride 93 L (98-107) mmol/L BUN 103 H* (9-20) mg/dL Creatinine 6.27 H (0.66-1.25) mg/dL Glucose 335 H (74-99) mg/dL POC Glucose (mg/dL) 327 H (75-99) mg/dL Calcium 8.3 L (8.4-10.2) mg/dL C-Reactive Protein 1.7 H (<1.0) mg/dL Total Protein 4.7 L (6.3-8.2) g/dL Albumin 2.3 L (3.5-5.0) g/dL Microbiology - Last 24 Hours (Table) 09/10/21 22:00 Body Fluid Culture - Preliminary Pleural Fluid 09/08/21 18:32 Gram Stain - Preliminary Dialysate Body Fluid Culture - Preliminary Assessment and Plan Assessment: 1 Altered mental status secondary to severe hypovolemic hyponatremia, improved. Alert and oriented 3. Sodium 124. 2 Acute COVID-19 Infection, no significant pulmonary involvement. On room air. 3 Chronic renal failure, on peritoneal dialysis 4 History of coronary disease with previous coronary artery bypass grafting 5 Diabetes mellitus 6 Hypertension Plan: The patient was seen and evaluated by Dr. Webb The patient remains stable and on room air We will see as needed I, the cosigning physician, performed a history & physical examination of the p atient. Lungs sounds with crackles in the bilateral bases. Maintaining good O2 saturations in the 90s on room air. I discussed the assessment and plan of care with my nurse practitioner, Danae Saleh. I attest to the above note as dictated by her.
[2021-09-11 16:31] LABS: Glucose,Whole Blood 222 mg/dL (75-99)
--- NOTE | 2021-09-11 17:53 | P.PN ---
Subjective Progress Note Date: 09/11/21 Follow-up for ESRD. On peritoneal dialysis. Objective - Vital Signs Vital signs: Vital Signs Temp 97.7 F 09/11/21 14:14 Pulse 71 09/11/21 14:14 Resp 18 09/11/21 14:14 BP 111/59 09/11/21 14:14 Pulse Ox 97 09/11/21 14:14 Intake & Output 09/10/21 09/11/21 09/11/21 18:59 06:59 18:59 Intake Total 1037.75 525 Output Total 25 Balance 1012.75 525 Weight 77.5 kg Intake: Intake, IV Titration 1037.75 525 Amount Mvi, Adult No.4 with Vit 525 K 10 ml Trace (Conc-1Ml/ Dose) 1 ml Sodium Chloride 4Meq/ml Vial 56 meq Potassium Chloride 14 meq In Amino Acid 5%- D20w+Lytes*E* 1,000 ml @ 75 mls/hr IV .BY DURATION [facility] Rx#:[id number] Sodium Chloride 4Meq/ml 1037.75 Vial 36 meq Potassium Chloride 20 meq In Amino Acid 5%-D20w+Lytes*E* 1, 000 ml @ 75 mls/hr IV .BY DURATION [facility] Rx#: [id number] Output: Urine 25 Other: Voiding Method CAPD CAPD # Voids 1 - Exam Acute distress S1-S2 heard Decreased breath sounds Edema - Labs CBC & Chem 7: 09/11/21 08:29 09/11/21 08:29 Labs: Abnormal Lab Results - Last 24 Hours (Table) 09/10/21 09/11/21 09/11/21 Range/Units 20:44 07:34 08:29 RBC (4.30-5.90) m/uL Hgb (13.0-17.5) gm/dL Hct (39.0-53.0) % Lymphocytes # (1.0-4.8) k/uL Sodium 124 L (137-145) mmol/L Chloride 93 L (98-107) mmol/L BUN 103 H* (9-20) mg/dL Creatinine 6.27 H (0.66-1.25) mg/dL Glucose 335 H (74-99) mg/dL POC Glucose (mg/dL) 181 H 340 H (75-99) mg/dL Calcium 8.3 L (8.4-10.2) mg/dL C-Reactive Protein 1.7 H (<1.0) mg/dL Total Protein 4.7 L (6.3-8.2) g/dL Albumin 2.3 L (3.5-5.0) g/dL 09/11/21 09/11/21 09/11/21 Range/Units 08:29 11:42 16:29 RBC 3.47 L (4.30-5.90) m/uL Hgb 10.9 L D (13.0-17.5) gm/dL Hct 32.2 L (39.0-53.0) % Lymphocytes # 0.5 L (1.0-4.8) k/uL Sodium (137-145) mmol/L Chloride (98-107) mmol/L BUN (9-20) mg/dL Creatinine (0.66-1.25) mg/dL Glucose (74-99) mg/dL POC Glucose (mg/dL) 327 H 222 H (75-99) mg/dL Calcium (8.4-10.2) mg/dL C-Reactive Protein (<1.0) mg/dL Total Protein (6.3-8.2) g/dL Albumin (3.5-5.0) g/dL Microbiology - Last 24 Hours (Table) 09/08/21 18:32 Gram Stain - Preliminary Dialysate Body Fluid Culture - Preliminary 09/10/21 22:00 Body Fluid Culture - Preliminary Pleural Fluid Assessment and Plan Assessment: #1 ESRD on peritoneal dialysis #2 hyponatremia secondary to increased by mouth intake and hyperglycemia #3 COVID-19 pneumonia #4 anemia with ESRD #5 hypertension with ESRD #6 suspected ESBL peritonitis. Cultures negative. Plan: #1 continue CAPD, increase the dialysate to 2.5% with hyponatremia.
[2021-09-11 20:21] LABS: Glucose,Whole Blood 225 mg/dL (75-99)
[2021-09-12] MEDS: NITROGLYCERIN OINT 1 INCH/GM PACKET TOPICAL SCH ×4 (00:52→17:26)
[2021-09-12] MEDS: DIALYSIS (PERIT 1.5%) 2,000 ML 30 G/2,000 ML BAG INTRAPERIT SCH (02:35)
[2021-09-12] MEDS: [UNRECOGNIZED DRUG - NUTRITION] IV SCH ×10 (03:22→14:33)
[2021-09-12] MEDS: hydrALAZINE HCL 20 MG/ML 1 ML VIAL IVP PRN (06:06)
[2021-09-12 06:53] LABS: Glucose,Whole Blood 314 mg/dL (75-99)
[2021-09-12] MEDS ORDERED: INSULIN DETEMIR (LEVEMIR) 100 UNIT/ML SYR SQ SCH (07:00)
[2021-09-12 07:28] LABS: ALT 23 U/L (4-49); AST 27 U/L (17-59); African American GFR (CKD) 9 (>60 ml/min/1.73 sqM); Albumin 2.1 g/dL (3.5-5.0); Albumin/Globulin Ratio 0.9; Alkaline Phosphatase 60 U/L (38-126); Anion Gap 6 mmol/L; Blood Urea Nitrogen 100 mg/dL (9-20); Calcium 8.1 mg/dL (8.4-10.2); Carbon Dioxide 25 mmol/L (22-30); Chloride 95 mmol/L (98-107); Globulin 2.3 g/dL; Glucose 290 mg/dL (74-99); Magnesium 2.1 mg/dL (1.6-2.3); Non-African American GFR(CKD) 8 (>60 ml/min/1.73 sqM); Phosphorus 3.8 mg/dL (2.5-4.5); Potassium 4.9 mmol/L (3.5-5.1); Sodium 126 mmol/L (137-145); Total Bilirubin 0.3 mg/dL (0.2-1.3); Total Protein 4.4 g/dL (6.3-8.2)
[2021-09-12] MEDS ORDERED: DIALYSIS (PERIT 1.5%) 2,000 ML 30 G/2,000 ML BAG INTRAPERIT SCH (08:00)
[2021-09-12] MEDS: INSULIN ASPART (NovoLOG) 100 UNIT/ML VIAL SQ SCH ×6 (08:18→20:27)
[2021-09-12] MEDS: CHOLECALCIFEROL 25 MCG (1000 IU) TABLET PO SCH (08:19)
[2021-09-12] MEDS: PANTOPRAZOLE 40 MG TABLET PO SCH (08:19)
[2021-09-12] MEDS: DOCUSATE 100 MG CAP PO SCH (08:19)
[2021-09-12] MEDS: HEPARIN SODIUM,PORCINE/PF 5,000 UNIT/0.5 ML SYRINGE SQ SCH ×2 (08:19→20:13)
[2021-09-12] MEDS: amLODIPine 10 MG TAB PO SCH (08:19)
[2021-09-12] MEDS: ASCORBIC ACID 500 MG TAB PO SCH (08:19)
[2021-09-12] MEDS: SODIUM BICARBONATE TAB 650 MG TAB PO SCH ×2 (08:19→20:13)
[2021-09-12] MEDS: ASPIRIN 81 MG PO SCH (08:19)
[2021-09-12] MEDS: carvediloL 12.5 MG TAB PO SCH ×2 (08:20→17:26)
--- NOTE | 2021-09-12 08:54 | PN ---
PROGRESS NOTE DATE OF SERVICE: 09/11/2021 REASON FOR FOLLOW UP: Positive peritoneal fluid culture with ESBL E. coli. INTERVAL HISTORY: Patient is afebrile. The patient is breathing comfortably. Denies having any chest pain, shortness of breath or cough. Abdominal pain is currently controlled. No vomiting or diarrhea. EXAMINATION: Blood pressure 133/61, pulse 75, temperature 97.8. He is 95% on room air. General description is an elderly male lying in bed in no distress. Respiratory system: Unlabored breathing. Clear to auscultation anteriorly. Heart S1, S2. Regular rate and rhythm. Abdomen: Soft. No tenderness. Extremities: No edema of the feet. LABS: Hemoglobin is 10.8, white count 8.9, creatinine 6.27. DIAGNOSTIC IMPRESSION AND PLAN: Patient with a positive peritoneal fluid culture with ESBL E coli in this patient. Peritoneal fluid itself has been clear, colorless with no WBC, more likely contamination. The patient is currently being monitored closely off antibiotic therapy and continue supportive care. MMODL / IJN: [id number] /
[2021-09-12 11:33] LABS: Glucose,Whole Blood 324 mg/dL (75-99)
[2021-09-12 13:44] LABS: Glucose,Whole Blood 229 mg/dL (75-99)
[2021-09-12] MEDS: DIALYSIS (PERIT 2.5%) 2,000 ML 50 G/2,000 ML BAG INTRAPERIT SCH ×2 (14:29→19:57)
--- NOTE | 2021-09-12 14:53 | P.PN ---
Subjective Progress Note Date: 09/12/21 Follow-up for ESRD. On peritoneal dialysis. Objective - Vital Signs Vital signs: Vital Signs Temp 98 F 09/12/21 09:19 Pulse 72 09/12/21 09:19 Resp 18 09/12/21 09:19 BP 113/58 09/12/21 09:19 Pulse Ox 96 09/12/21 09:19 Intake & Output 09/11/21 09/12/21 09/12/21 18:59 06:59 18:59 Intake Total 525 1021 Balance 525 1021 Weight 77.5 kg Intake: Intake, IV Titration 525 1021 Amount Mvi, Adult No.4 with Vit 525 K 10 ml Trace (Conc-1Ml/ Dose) 1 ml Sodium Chloride 4Meq/ml Vial 56 meq Potassium Chloride 14 meq In Amino Acid 5%- D20w+Lytes*E* 1,000 ml @ 75 mls/hr IV .BY DURATION [facility] Rx#:[id number] Sodium Chloride 4Meq/ml 1021 Vial 56 meq Potassium Chloride 14 meq In Amino Acid 5%-D20w+Lytes*E* 1, 000 ml @ 75 mls/hr IV .BY DURATION [facility] Rx#: [id number] Other: Voiding Method CAPD CAPD CAPD # Voids 1 - Exam Acute distress S1-S2 heard Decreased breath sounds Edema - Labs CBC & Chem 7: 09/11/21 08:29 09/12/21 06:48 Labs: Abnormal Lab Results - Last 24 Hours (Table) 09/11/21 09/11/21 09/12/21 Range/Units 16:29 20:17 06:48 Sodium 126 L (137-145) mmol/L Chloride 95 L (98-107) mmol/L BUN 100 H (9-20) mg/dL Creatinine 6.51 H (0.66-1.25) mg/dL Glucose 290 H (74-99) mg/dL POC Glucose (mg/dL) 222 H 225 H (75-99) mg/dL Calcium 8.1 L (8.4-10.2) mg/dL Total Protein 4.4 L (6.3-8.2) g/dL Albumin 2.1 L (3.5-5.0) g/dL 09/12/21 09/12/21 09/12/21 Range/Units 06:51 11:27 13:42 Sodium (137-145) mmol/L Chloride (98-107) mmol/L BUN (9-20) mg/dL Creatinine (0.66-1.25) mg/dL Glucose (74-99) mg/dL POC Glucose (mg/dL) 314 H 324 H 229 H (75-99) mg/dL Calcium (8.4-10.2) mg/dL Total Protein (6.3-8.2) g/dL Albumin (3.5-5.0) g/dL Microbiology - Last 24 Hours (Table) 09/11/21 08:29 Blood Culture - Preliminary Blood No Growth after 24 hours 09/10/21 22:00 Gram Stain - Preliminary Pleural Fluid Body Fluid Culture - Preliminary 09/08/21 18:32 Gram Stain - Preliminary Dialysate Body Fluid Culture - Preliminary Assessment and Plan Assessment: #1 ESRD on peritoneal dialysis #2 hyponatremia secondary to increased by mouth intake and hyperglycemia #3 COVID-19 pneumonia #4 anemia with ESRD #5 hypertension with ESRD #6 suspected ESBL peritonitis. Cultures negative. Plan: #1 continue CAPD, increase the dialysate to 2.5% with hyponatremia. #2 antibiotics as per infectious disease
[2021-09-12 16:38] LABS: Glucose,Whole Blood 78 mg/dL (75-99)
--- NOTE | 2021-09-12 17:05 | PN ---
PROGRESS NOTE DATE OF SERVICE: 09/12/2021 REASON FOR FOLLOWUP: Positive ascitic fluid culture with ESBL E coli. INTERVAL HISTORY: The patient is afebrile. The patient is currently breathing comfortably. Denies having any chest pain, shortness of breath or cough. No abdominal pain or diarrhea. PHYSICAL EXAMINATION: Blood pressure 119/64, pulse of 77, temperature 98. He is 98% on room air. General description is an elderly male lying in bed in no distress. Respiratory system: Unlabored breathing, clear to auscultation. Heart S1, S2. Regular rate and rhythm. Abdomen soft, no tenderness. LABS: Creatinine 6.51. Repeat peritoneal fluid culture negative. DIAGNOSTIC IMPRESSION AND PLAN: Patient with a positive peritoneal fluid culture with ESBL Escherichia coli with a negative of the fluid, more likely contamination. Repeat culture has been negative. No need for antibiotic on discharge. MMODL / IJN: [id number] /
--- NOTE | 2021-09-12 19:51 | P.PN ---
Subjective Progress Note Date: 09/12/21 Principal diagnosis: Severe hyponatremia, acute metabolic encephalopathy This is a 76-year-old white male with history of multiple medical problems including end-stage renal disease, on peritoneal dialysis, known history of diabetes, congestive heart failure, coronary artery disease and previous CABG, patient presented to the ER yesterday with 1 day history of abdominal pain. Patient was also noted to be quite confused, workup included a CT of the abdomen and pelvis which came back negative. However his labs were quite abnormal, and his sodium was noted to be 104. The patient himself is a very poor historian, could not get any information from the patient seems to be extremely confused. Patient was also noted to have abnormal renal profile with a BUN of 79 creatini ne of 7.34, and he had positive PCR for COVID-19 infection. No chest x-ray was done in the ER, hence short the after I evaluated the patient, chest x-ray was ordered. The meantime the patient is on room air, his O2 sats was 92-97% on room air. Is afebrile, blood pressure is elevated at 149/96. Upon admission and when I was notified about this patient last night, his PCR for COVID-19 was pending. And I recommended starting the patient on slow infusion of 3% saline and slow correction of his hyponatremia. This morning repeat sodium is 108. Nephrology is yet to see the patient today regarding his chronic renal failure/peritoneal dialysis, and regarding his profound and severe hyponatremia. Chest x-ray showed scattered bilateral infiltrates peripherally and at the bases mostly. Clinically, the patient looks euvolemic, no history to suggest nausea vomiting diarrhea. Patient was reevaluated today on 09/04/2021, patient remains in the ICU, remains on 3% saline for profound hyponatremia, his sodium is correcting slowly. He was seen by nephrology, and the plan is to discontinue 3% later on today. It is running at 20 mL per hour. Patient developed significant hypertension yesterday and agitation, placed on Precedex and he was also placed on clevidipine extra. His blood pressure today seems to be better controlled. However the patient still requires Precedex. Seems to be calm, patient is undergoing peritoneal dialysis. Today I recommended a PICC line and possibly starting the patient on TPN. Nurse tried to put a nasogastric tube in this patient, however he was extremely agitated and he kept pulling it out. I believe the best mode of nutrition for this patient at this point would have to be TPN. Sodium today is up to 116, patient presented initially with a sodium of 104. CBC is relatively normal renal profile is abnormal with a BUN of 80 creatinine 7.57, patient is on peritoneal dialysis. Pulmonary-wilburn, patient is on a couple of liters of oxygen, not in distress, although the patient did have positive PCR for COVID-19 infection, and his chest x-ray on admission showed multifocal opacities consistent with COVID-19 pneumonia The patient is seen today 09/05/2029 in follow-up in the intensive care unit. He was quite a bit more awake and alert today compared to yesterday. He is oriented 2. He is maintaining O2 saturations in the 90s on 2 L/m per nasal cannula. He is receiving peritoneal dialysis every 6 hours. He is currently on 3% normal saline at 35 ML's per hour. Precedex at 0.8 mcgkg/hr. Clevidipine at 2 mg per hour. He is receiving TPN for nourishment at 30 MLS per hour to be increased to 75 ML's. Peritoneal fluid cultures are pending. Blood cultures reveal no growth to date. Current sodium is 119. Potassium 3.1. Chloride 89. Bicarb 23. BUN 73. Creatinine 6.81. Glucose 292. He is remaining in sinus rhythm. Swallow evaluation pending. The patient is seen today 09/06/2021 in follow-up in the intensive care unit. He is currently alert and oriented 3. He is maintaining O2 saturations in the mid 90s on 2 L/m per nasal cannula. Afebrile. He is doing quite well. He is swallowing well. He remains on clevidipine at 8 mg per hour. He's been off the Precedex about 24 hours now. His sodium is 122. Potassium 3.3. BUN 73. Creatinine 6.28. Glucose 301. Calcium 7.5. He remains on Decadron. Heparin for DVT prophylaxis. Remains on TPN and lipids for nutritional support. The patient is seen today 09/07/2021 in follow-up in the intensive care unit. He is currently sitting up in a chair at the bedside. Awake and alert in no acute distress. He is maintaining good O2 saturations in the 90s on room air. He remains on TPN for nutritional support at 75 ML's per hour. No IV fluids. Blood cultures reveal no growth to date. Peritoneal fluid cultures pending. Current sodium 122. Potassium 3.7. Creatinine 6.42. Glucose 239. He remains on Decadron, vitamin supplements, heparin for DVT prophylaxis. The patient is seen today 09/10/2021 in follow-up on the regular medical floor. He is currently sitting up in bed. Awake and alert in no acute distress. He is maintaining O2 saturations in the 90s on room air. He does receive peritoneal dialysis. Creatinine today is 6.08. Sodium 124. No IV fluids. He is continued on subcu heparin, Decadron, vitamin supplements. Tibial fluid cultures were positive for E. coli. Being nourished with TPN and lipids. The patient is seen today 09/11/2021 in follow-up on the regular medical floor. He remains awake and alert in no acute distress. He is to maintain good O2 saturations in the upper 90s on room air. He's been afebrile. Hemodynamically stable. White count 8.9. Hemoglobin 10.9. Lymphocytes 0.5. Sodium 124. Potassium 4.7. BUN 103. Creatinine 6.27. Blood glucose 335. He is continued on peritoneal dialysis. The patient is seen today 09/12/2021 in follow-up on the regular medical floor. He remains awake and alert in no acute distress. Maintaining good O2 saturations in the 90s on room air. Sodium 126. Potassium 4.9. Creatinine 6.5. BUN 100. Glucose 290. He is continued on TPN and lipids for nutritional support. Continued on peritoneal dialysis. Objective - Vital Signs Vital signs: Vital Signs Temp 97.4 F L 09/12/21 17:18 Pulse 74 09/12/21 17:18 Resp 19 09/12/21 17:18 BP 148/69 09/12/21 17:18 Pulse Ox 96 09/12/21 17:18 Intake & Output 09/12/21 09/12/21 09/13/21 06:59 18:59 06:59 Intake Total 1021 700 Output Total 100 Balance 1021 600 Weight 77.5 kg Intake: Intake, IV Titration 1021 450 Amount Mvi, Adult No.4 with Vit 450 K 10 ml Trace (Conc-1Ml/ Dose) 1 ml Sodium Chloride 4Meq/ml Vial 56 meq Potassium Chloride 14 meq In Amino Acid 5%- D20w+Lytes*E* 1,000 ml @ 75 mls/hr IV .BY DURATION RAIN Rx#:[id number] Sodium Chloride 4Meq/ml 1021 Vial 56 meq Potassium Chloride 14 meq In Amino Acid 5%-D20w+Lytes*E* 1, 000 ml @ 75 mls/hr IV .BY DURATION [facility] Rx#: [id number] Oral 250 Output: Urine 100 Other: Voiding Method CAPD CAPD # Voids 1 1 - Exam GENERAL EXAM: Alert, oriented 3, 76-year-old male, on room air, comfortable in no apparent distress. HEAD: Normocephalic. EYES: Normal reaction of pupils, equal size. NOSE: Clear with pink turbinates. THROAT: No erythema or exudates. NECK: No masses, no JVD. CHEST: No chest wall deformity. LUNGS: Equal air entry with faint crackles in the posterior bases. CVS: S1 and S2 normal with no audible murmur, regular rhythm. ABDOMEN: Peritoneal catheter exit site is clean and dry. No hepatosplenomegaly, normal bowel sounds, no guarding or rigidity. SPINE: No scoliosis or deformity SKIN: No rashes CENTRAL NERVOUS SYSTEM: No focal deficits, tone is normal in all 4 extremities. EXTREMITIES: PICC line to the left upper extremity There is no peripheral edema. No clubbing, no cyanosis. Peripheral pulses are intact. - Labs CBC & Chem 7: 09/11/21 08:29 09/12/21 06:48 Labs: Abnormal Lab Results - Last 24 Hours (Table) 09/11/21 09/12/21 09/12/21 Range/Units 20:17 06:48 06:51 Sodium 126 L (137-145) mmol/L Chloride 95 L (98-107) mmol/L BUN 100 H (9-20) mg/dL Creatinine 6.51 H (0.66-1.25) mg/dL Glucose 290 H (74-99) mg/dL POC Glucose (mg/dL) 225 H 314 H (75-99) mg/dL Calcium 8.1 L (8.4-10.2) mg/dL Total Protein 4.4 L (6.3-8.2) g/dL Albumin 2.1 L (3.5-5.0) g/dL 09/12/21 09/12/21 Range/Units 11:27 13:42 Sodium (137-145) mmol/L Chloride (98-107) mmol/L BUN (9-20) mg/dL Creatinine (0.66-1.25) mg/dL Glucose (74-99) mg/dL POC Glucose (mg/dL) 324 H 229 H (75-99) mg/dL Calcium (8.4-10.2) mg/dL Total Protein (6.3-8.2) g/dL Albumin (3.5-5.0) g/dL Microbiology - Last 24 Hours (Table) 09/08/21 18:32 Gram Stain - Final Dialysate Body Fluid Culture - Final 09/11/21 08:29 Blood Culture - Preliminary Blood No Growth after 24 hours 09/10/21 22:00 Gram Stain - Preliminary Pleural Fluid Body Fluid Culture - Preliminary Assessment and Plan Assessment: 1 Altered mental status secondary to severe hypovolemic hyponatremia, improved. Alert and oriented 3. Sodium 126. 2 Acute COVID-19 Infection, no significant pulmonary involvement. On room air. 3 Chronic renal failure, on peritoneal dialysis 4 History of coronary disease with previous coronary artery bypass grafting 5 Diabetes mellitus 6 Hypertension Plan: The patient was seen and evaluated by Dr. Jon San and on room air We will see as needed I, the cosigning physician, performed a history & physical examination of the patient. Lungs sounds with crackles in the bilateral bases. Maintaining good O2 saturations in the 90s on room air. I discussed the assessment and plan of care with my nurse practitioner, Danae Saleh. I attest to the above note as dictated by her.
[2021-09-12] MEDS: hydrALAZINE HCL 50 MG TAB PO SCH (20:13)
[2021-09-12 20:28] LABS: Glucose,Whole Blood 62 mg/dL (75-99)
[2021-09-12 20:54] LABS: Glucose,Whole Blood 85 mg/dL (75-99)
--- NOTE | 2021-09-12 22:17 | P.PN ---
Subjective This is a pleasant 76 years old male with past medical history of Heart Failure, Diabetes Mellitus, renal disease on peritoneal Dialysis, Hypertension, history of Coronary Bypass/CABG, Patient presents because of abdominal pain per emergency room Note however patient found to have be confused with hypernatremia His sodium on admission was 104, earlier this morning was 108 and ended in weight respectively. patient currently remains in the ICU confused, does not follow commands, he is also on restraints. He denies any chest pain or abdominal pain. His abdomen looks soft and there is dialysis to running out of his left lower quadrant of abdomen, not connected to anything. His abdomen is soft with no tenderness or guarding. No rebound tenderness he moves all extremities equally. Patient is poor historian On admission he is afebrile, his breathing rate around 11, blood pressure 174/96 and he is saturating 95% on room air. WBC 6.9 and 13.3. Rest of CBC is unremarkable. Sodium on admission was low at 104, currently is 108. Unknown baseline. Creatinine elevated 7.3. Troponin is elevated at 0.05 Urine analysis is showing 2+ protein, 2+ glucose. Hamilton v. is detected CT of the abdomen and pelvis with no contrast: Sigmoid diverticulosis without diverticulitis. Atherosclerotic vascular disease. None obstructing large calculus right renal pelvis In the emergency room patient received Protonix, pain medication Nephrology and ice team were consulted already 09/04/2021 Patient is confused and sleepy, does not follow command. Sitter at bedside. His metabolic encephalopathy most likely secondary to hypernatremia. Neurologist on the case. EKG and CT of the brain are pending. He is not in respiratory distress and abdomen is soft. Distal on 3% normal saline at 20 ml/h. Also he was started on calviprex her blood pressure was elevated last night 194/85. Sodium today improved 214. Echocardiogram showed ejection fraction of 55-60% with moderate aortic stenosis Patient continued to 3% NS, calviprex DRIP, multiple vitamins and dexamethasone. Also he is on subcutaneous heparin for DVT prophylaxis 09/05/2021 Patient today is awake and alert and oriented to place, he knows he is [facility] but he still disoriented to time person. He follows commands approp riately. He denies any specific complaints. Improved. 125 and 3% saline was discontinued and patient was started on TPN pending swallow evaluation. Blood pressure is a stable while he is still on Calviprex drip, last blood pressure 150/71. He remains on dexamethasone, multiple vitamins forego with infection but he is saturating 95 % on 2 L/m of oxygen. We'll keep monitoring sodium 09/06/2021 Patient mentation keeps improving, neurology signed off, sodium is 122 and nephrology of the case recommended to increase salt intake with food. This morning he was complaining of from burning chest pain with markedly elevated troponin in view of his kidney disease. Echocardiogram area was with no hypokinesia but he has ejection fraction of 55-60% with moderate aortic stenosis, DrAdán office today and was admitted for uncontrolled blood pressure with systolic or than 190 also he is on Norvasc 10 mg on Coreg 25 mg and hydralazine when necessary. Blood pressure improved through the day systolic down to 160s. Cardiology team consulted. Patient remains on dexamethasone, multiple vitamins, calviprex drip 09/07/2021 Patient mentation looks like at baseline. He is oriented to place only but not to time or person. He knows he is in [facility]. No chest pain. No other complaints. Blood pressure is slightly elevated 174/81, other vitals stable. Sodium is stable at 122 sodium bicarb tablets added by associate professor of music. A still on steroids and multiple vitamins Transferred to the general medical floor today 09/08/2021 Is awake and alert at baseline. He was asking when he can be discharged. He denies headache. No chest pain or dyspnea. He is hemodynamically stable. Blood pressure this morning was 126/62. Afebrile. Sodium from yesterday we will is 122. Sodium level today still pending. Glucose was elevated more than 300 and he was placed on insulin drip. Risks are 10 his Levemir 6012 units at home but at 15 units daily. Also he is on NovoLog 10 units with meals. He is still dexamethasone, multiple vitamins, Norvasc and Coreg 25 mg. I discussed the case with cardiology team and the recommend to keep the patient on aspirin 09/09/2021 Patient awake and alert, confused at baseline but he is oriented to place he knows he is in [facility]. He denies chest pain or abdominal pain or any other symptoms. He is still undergoing peritoneal dialysis through his abdomina l cavity peritoneal tube. However culture came back positive for E. coli suspicious for infection and patient was started on meropenem and consult infectious disease team. Vitals stable, elevated blood pressure is better controlled today 138/63. Glucose is around 200 and he is on insulin drip 2.5 units per hour, start him on Levemir once daily and insulin sliding scale as patient is not eating much, he ate only little of his breakfast this morning. Sodium improved and today is 124. Patient is still getting TPN He remains on dexamethasone and multiple vitamins for his covid infection 09/10/2021 Patient awake with no specific complaint. He does not look in distress but he has low appetite and he only 25% of his lunch through the whole day. He still on TPN Were gone to check swallow evaluation for him. In the meantime he remains on peritoneal dialysis. His E coli in the peritoneal fluid is most likely contamination, meropenem as per ID team recommendation. Patient also with no signs and symptoms of peritonitis, lack no abdominal pain, discomfort, no fever or leukocytosis. Pulmonary status regarding his Covid infection is a stable and remains on dexamethasone, vitamin C, D and zinc, This dexamethasone was stopped. He remains on insulin which increased dose 18 up to 23 units daily plus insulin sliding scale Sodium is stable at 124 Prognosis still guarded 09/11/2021 Patient mentation is similar over the last few days, his somewhat confused at baseline but he knows in the hospital. No other complaints regarding that however patient is not eating and his reason is that he lost his taste. Patient remains on TPN and swallow evaluation is pending. His sodium was still 124 and he is on fluid restriction. Hemoglobin dropped 14 down to 10.4, we'll keep monitoring closely. WBC is slightly elevated at 10.5. Glucose is still elevated and his Levemir increased today to 23 units. He remains on dexamethasone and multiple vitamins for his covid infection. Antibiotics were stopped by ID team. 09/12/2021 patient generally doing well, he denies any specific symptoms. He started eating today and TPN was stopped. Denies chest pain or dyspnea or abdominal pain. No nausea vomiting. He continued to undergo peritoneal dialysis. Pulmonary, infectious disease and cardiology cleared the patient. And all other consultants However we will monitor the patient for another 24 hours for better control of his sugar more than 300 and his blood pressure he received high dose of IV hydralazine 20 mg today. Patient is already on Coreg 25 mg Norvasc 10 mg. We will add hydralazine 50 mg twice a day I talked Clarita and updated Objective - Vital Signs Vital signs: Vital Signs Temp 98 F 09/12/21 09:19 Pulse 72 09/12/21 09:19 Resp 18 09/12/21 09:19 BP 113/58 09/12/21 09:19 Pulse Ox 96 09/12/21 09:19 Intake & Output 09/11/21 09/12/21 09/12/21 18:59 06:59 18:59 Intake Total 525 1021 Balance 525 1021 Intake: Intake, IV Titration 525 1021 Amount Mvi, Adult No.4 with Vit 525 K 10 ml Trace (Conc-1Ml/ Dose) 1 ml Sodium Chloride 4Meq/ml Vial 56 meq Potassium Chloride 14 meq In Amino Acid 5%- D20w+Lytes*E* 1,000 ml @ 75 mls/hr IV .BY DURATION REPLACED BY [facility] Rx#:[id number] Sodium Chloride 4Meq/ml 1021 Vial 56 meq Potassium Chloride 14 meq In Amino Acid 5%-D20w+Lytes*E* 1, 000 ml @ 75 mls/hr IV .BY DURATION RAIN Rx#: [id number] Other: Voiding Method CAPD CAPD CAPD # Voids 1 - Exam -GENERAL: The patient is sleepy, not in any acute distress. Well developed, well nourished. HEENT: Pupils are round and equally reacting to light. EOMI. No scleral icterus. No conjunctival pallor. Normocephalic, atraumatic. No pharyngeal erythema. No thyromegaly. CARDIOVASCULAR: S1 and S2 present. No murmurs, rubs, or gallops. PULMONARY: Chest is clear to auscultation, no wheezing or crackles. -ABDOMEN: Soft, nontender, nondistended, normoactive bowel sounds. No palpable organomegaly. Peritoneal tube from the left lower quadrant, not connected MUSCULOSKELETAL: No joint swelling or deformity. EXTREMITIES: No cyanosis, clubbing, or pedal edema. NEUROLOGICAL: Gross neurological examination did not reveal any focal deficits. SKIN: No rashes. no petechiae. - Labs CBC & Chem 7: 09/11/21 08:29 09/12/21 06:48 Labs: Abnormal Lab Results - Last 24 Hours (Table) 11/25/21 11/25/21 11/26/21 Range/Units 16:29 20:17 06:48 Sodium 126 L (137-145) mmol/L Chloride 95 L (98-107) mmol/L BUN 100 H (9-20) mg/dL Creatinine 6.51 H (0.66-1.25) mg/dL Glucose 290 H (74-99) mg/dL POC Glucose (mg/dL) 222 H 225 H (75-99) mg/dL Calcium 8.1 L (8.4-10.2) mg/dL Total Protein 4.4 L (6.3-8.2) g/dL Albumin 2.1 L (3.5-5.0) g/dL 09/12/21 09/12/21 Range/Units 06:51 11:27 Sodium (137-145) mmol/L Chloride (98-107) mmol/L BUN (9-20) mg/dL Creatinine (0.66-1.25) mg/dL Glucose (74-99) mg/dL POC Glucose (mg/dL) 314 H 324 H (75-99) mg/dL Calcium (8.4-10.2) mg/dL Total Protein (6.3-8.2) g/dL Albumin (3.5-5.0) g/dL Microbiology - Last 24 Hours (Table) 09/11/21 08:29 Blood Culture - Preliminary Blood No Growth after 24 hours 09/10/21 22:00 Gram Stain - Preliminary Pleural Fluid Body Fluid Culture - Preliminary 09/08/21 18:32 Gram Stain - Preliminary Dialysate Body Fluid Culture - Preliminary Assessment and Plan Assessment: Decreased oral intake, check for dysphagia severe hyponatremia, improving Altered mental status, most likely metabolic encephalopathy secondary to hyponatremia, improved Covid infection with no hypoxia peritoneal fluid infection with culture positive for E. coli, most likely contamination rather than infection, possibility is low for peritonitis secondary to dialysis catheter Chest pain Diabetes mellitus Chronic heart failure Hypertension Elevated troponin History of coronary artery disease status post CABG History of renal disease on dialysis Right kidney stone Plan: This is a pleasant 76 years old male who presents with hypernatremia Continue with TPN. Check swallow evaluation. Infectious disease consult on the case Sodium is a stable Continue with peritoneal dialysis. Nephrology team recommendation Pulmonary/Critical team consult Labs and medication were reviewed.. Continue same treatment. Continue with symptomatic treatment. Resume home medication. Monitor lytes and vitals. DVT and GI prophylaxis. Further recommendations depends on the clinical course of the patient DVT prophylaxis: Subcutaneous heparin GI Prophylaxis: Ppi Prognosis is guarded
[2021-09-12 22:26] LABS: Glucose,Whole Blood 164 mg/dL (75-99)
[2021-09-13] MEDS: NITROGLYCERIN OINT 1 INCH/GM PACKET TOPICAL SCH ×3 (00:05→12:49)
[2021-09-13] MEDS: DIALYSIS (PERIT 2.5%) 2,000 ML 50 G/2,000 ML BAG INTRAPERIT SCH ×2 (02:05→09:02)
[2021-09-13] MEDS: [UNRECOGNIZED DRUG - NUTRITION] IV SCH ×5 (03:28)
[2021-09-13 06:50] LABS: ALT 54 U/L (4-49); AST 52 U/L (17-59); African American GFR (CKD) 9 (>60 ml/min/1.73 sqM); Albumin 2.1 g/dL (3.5-5.0); Albumin/Globulin Ratio 0.8; Alkaline Phosphatase 82 U/L (38-126); Anion Gap 6 mmol/L; Blood Urea Nitrogen 98 mg/dL (9-20); Calcium 8.2 mg/dL (8.4-10.2); Carbon Dioxide 27 mmol/L (22-30); Chloride 96 mmol/L (98-107); Globulin 2.5 g/dL; Glucose 224 mg/dL (74-99); Magnesium 2.1 mg/dL (1.6-2.3); Non-African American GFR(CKD) 8 (>60 ml/min/1.73 sqM); Phosphorus 4.1 mg/dL (2.5-4.5); Potassium 4.9 mmol/L (3.5-5.1); Sodium 129 mmol/L (137-145); Total Bilirubin 0.3 mg/dL (0.2-1.3); Total Protein 4.6 g/dL (6.3-8.2)
[2021-09-13 06:54] LABS: Glucose,Whole Blood 222 mg/dL (75-99)
[2021-09-13] MEDS ORDERED: INSULIN DETEMIR (LEVEMIR) 100 UNIT/ML SYR SQ SCH (07:00)
[2021-09-13] MEDS ORDERED: INSULIN ASPART (NovoLOG) 100 UNIT/ML VIAL SQ SCH (07:30)
[2021-09-13] MEDS: DOCUSATE 100 MG CAP PO SCH (09:00)
[2021-09-13] MEDS: INSULIN ASPART (NovoLOG) 100 UNIT/ML VIAL SQ SCH ×2 (09:00→12:50)
[2021-09-13] MEDS: SODIUM BICARBONATE TAB 650 MG TAB PO SCH (09:00)
[2021-09-13] MEDS: HEPARIN SODIUM,PORCINE/PF 5,000 UNIT/0.5 ML SYRINGE SQ SCH (09:00)
[2021-09-13] MEDS: hydrALAZINE HCL 50 MG TAB PO SCH (09:01)
[2021-09-13] MEDS: amLODIPine 10 MG TAB PO SCH (09:01)
[2021-09-13] MEDS: CHOLECALCIFEROL 25 MCG (1000 IU) TABLET PO SCH (09:01)
[2021-09-13] MEDS: carvediloL 12.5 MG TAB PO SCH (09:01)
[2021-09-13] MEDS: ASPIRIN 81 MG PO SCH (09:01)
[2021-09-13] MEDS: ASCORBIC ACID 500 MG TAB PO SCH (09:02)
[2021-09-13] MEDS: PANTOPRAZOLE 40 MG TABLET PO SCH (09:02)
[2021-09-13 10:16] VITALS: PULSE 75; RESP 18
--- NOTE | 2021-09-13 10:20 | P.PN ---
Subjective Patient is seen in follow-up for end-stage renal disease and hyponatremia. Sodium level better. Blood sugar 224 this morning. No problems with peritoneal dialysis. Peritoneal fluid came back positive for ESBL E. coli but cell count not suggestive of peritonitis. Repeat culture negative. Off antibiotics. He denies any abdominal pain. No vomiting. Vital signs are stable. General: The patient appeared well nourished and normally developed. HEENT: Head exam is unremarkable. LUNGS: Breath sounds decreased. HEART: Rate and Rhythm are regular. ABDOMEN:, No distention. EXTREMITITES: No edema. Objective - Vital Signs Vital signs: Vital Signs Temp 98.6 F 09/13/21 08:31 Pulse 75 09/13/21 08:31 Resp 18 09/13/21 08:31 BP 143/67 09/13/21 08:31 Pulse Ox 97 09/13/21 08:31 Intake & Output 09/12/21 09/13/21 09/13/21 18:59 06:59 18:59 Intake Total 700 Output Total 100 Balance 600 Weight 77.5 kg Intake: Intake, IV Titration 450 Amount Mvi, Adult No.4 with Vit 450 K 10 ml Trace (Conc-1Ml/ Dose) 1 ml Sodium Chloride 4Meq/ml Vial 56 meq Potassium Chloride 14 meq In Amino Acid 5%- D20w+Lytes*E* 1,000 ml @ 75 mls/hr IV .BY DURATION [facility] Rx#:[id number] Oral 250 Output: Urine 100 Other: Voiding Method CAPD CAPD CAPD # Voids 1 0 - Labs CBC & Chem 7: 09/11/21 08:29 09/13/21 05:45 Labs: Abnormal Lab Results - Last 24 Hours (Table) 09/12/21 09/12/21 09/12/21 Range/Units 11: 13:42 20:26 Sodium (137-145) mmol/L Chloride (98-107) mmol/L BUN (9-20) mg/dL Creatinine (0.66-1.25) mg/dL Glucose (74-99) mg/dL POC Glucose (mg/dL) 324 H 229 H 62 L (75-99) mg/dL Calcium (8.4-10.2) mg/dL ALT (4-49) U/L Total Protein (6.3-8.2) g/dL Albumin (3.5-5.0) g/dL 09/12/21 09/13/21 09/13/21 Range/Units 22:22 05:45 06:49 Sodium 129 L (137-145) mmol/L Chloride 96 L (98-107) mmol/L BUN 98 H (9-20) mg/dL Creatinine 6.54 H (0.66-1.25) mg/dL Glucose 224 H (74-99) mg/dL POC Glucose (mg/dL) 164 H 222 H (75-99) mg/dL Calcium 8.2 L (8.4-10.2) mg/dL ALT 54 H (4-49) U/L Total Protein 4.6 L (6.3-8.2) g/dL Albumin 2.1 L (3.5-5.0) g/dL Microbiology - Last 24 Hours (Table) 09/08/21 18:32 Gram Stain - Final Dialysate Body Fluid Culture - Final 09/11/21 08:29 Blood Culture - Preliminary Blood No Growth after 24 hours 09/10/21 22:00 Gram Stain - Preliminary Pleural Fluid Body Fluid Culture - Preliminary Assessment and Plan Plan: Assessment: 1. End-stage renal disease maintained on peritoneal dialysis. 2. Hyponatremia status post 3% saline. Partially due to hyperglycemia. Better. 3. Covid-19 pneumonia. 4. Chronic kidney disease mineral bone disease maintained on PhosLo. 5. Hypertension with chronic kidney disease. Stable. 6. Diabetes mellitus. 7. ESBL E. coli peritonitis. Patient's fluid white count was only 3 and 0 on repeat. Possibly contamination - repeat cultures negative. Off antibiotics. Plan: Maintain current PD changes.
[2021-09-13 11:28] LABS: Glucose,Whole Blood 293 mg/dL (75-99)
--- NOTE | 2021-09-13 15:23 | PN ---
PROGRESS NOTE DATE OF SERVICE: 09/13/2021 REASON FOR FOLLOWUP: Positive dialysis culture with ESBL E coli. INTERIM HISTORY: The patient is afebrile. The patient is currently breathing comfortably. No chest pain, shortness of breath, cough. No abdominal pain or diarrhea. EXAMINATION: Blood pressure 143/67, pulse of 75, temperature 98.6. He is 97% on room air. General description is an elderly male up in the bed in no distress. Respiratory system: Unlabored breathing, clear to auscultation. Heart S1, S2. Regular rate and rhythm. Abdomen soft, no tenderness. LABS: BUN of 98, creatinine 6.54. Repeat culture has been negative. DIAGNOSTIC IMPRESSION AND PLAN: Patient with positive peritoneal fluid culture, ESBL Klebsiella, likely contaminant. Repeat culture negative. No need for antibiotic on discharge. Continue supportive care. MMODL / IJN: [id number] /
[2021-09-13 15:29] VITALS: BP 108/66; TEMP 98.7
--- NOTE | 2021-09-13 22:24 | P.DS ---
Providers Date of admission: 09/02/21 21:38 Attending physician: Bruce Burks MD Consults: 09/02/21 21:38 Consult Physician Stat Consulting Provider: Katie Park Consult Reason/Comments: critical care Do you want consulting provider notified?: Yes 09/02/21 21:48 Consult Physician Stat Consulting Provider: Monse Haro Consult Reason/Comments: hypernatremia, esrd on PD Do you want consulting provider notified?: Yes 09/03/21 10:17 Consult Physician Routine Consulting Provider: Nilda Castrejon Consult Reason/Comments: AMS Do you want consulting provider notified?: Yes 09/06/21 13:25 Consult Physician Urgent Consulting Provider: Savannah Adames Consult Reason/Comments: chest pain ,elevated troponin Do you want consulting provider notified?: Yes 09/08/21 13:22 Consult Physician Routine Consulting Provider: Prashant Ortega Consult Reason/Comments: ESBL periotinitis Do you want consulting provider notified?: Yes Primary care physician: Stated None Hospital Course: Diagnoses: severe hyponatremia, improving Altered mental status, most likely metabolic encephalopathy secondary to hyponatremia, improved Covid infection with no hypoxia peritoneal fluid with culture positive for E. coli, most likely contamination rather than infection, possibility is low for peritonitis secondary to dialysis catheter . Cleared by ID team Diabetes mellitus with hyper- and hypoglycemia Chronic heart failure Hypertension Elevated troponin History of coronary artery disease status post CABG History of renal disease on dialysis Right kidney stone Hospital course: This is a pleasant 76 years old male with past medical history of Heart Failure, Diabetes Mellitus, renal disease on peritoneal Dialysis, Hypertension, history of Coronary Bypass/CABG, Patient presents because of abdominal pain per emergency room Note however patient found to have be confused with hyponatremia His sodium on admission was 104, he was admitted to the ICU in critical condition and he was treated with 3% saline over several days total sodium start improving gradually. Eventually IV saline was stopped, patient regained his baseline level of consciousness and patient back to his normal state. Upon discharge his sodium improved up to 129 today. Also patient was with Covid infection on multiple vitamins but without hypoxia and he remained stable. Patient is a known case of end-stage renal disease undergoing peritoneal dialysis. Library Sales Consultant was following the patient closely. Patient was recently moved from [place] into [facility] so he does not have PCP, while in the hospital his family switched him to a new PCP with Dr. Wilson who made aware with the patient. Patient also known case of diabetes mellitus, was on Levemir 10 units, upon d ischarge he needs higher dose of insulin Levemir [address] units. [address] him on NovoLog also 5 units with meals however his glucose a drop 262, so we stopped standing dose of NovoLog and place the patient on insulin sliding scale which is a provided to the patient and family upon discharge. Patient daughter is a nurse and she took our [employer] so she cannot take care of her father upon discharge as he has to go home. Patient cannot go to rehab because he has to switch his peritoneal dialysis to hemodialysis if he wants to go to rehab. So patient and family decided to go home with daughter taking care of him. On the day of discharge patient is back to his baseline mentation, confirmed with and family. He denies any chest pain or dyspnea. No change in urine or bowel habits. No fever. There was a suspicion of dysphagia and TPN was started temporarily however patient later on regained his ability to eat with no difficulty. TPN was discontinued Patient has been evaluated and cleared by several consultants. The patient was cleared for discharge by medical parasitologist, fire fighters dispatcher. And other consultants Problems and management plan were discussed with the patient and he verbalized understanding and acceptance Patient was found stable and can be discharged home in regards to prognosis however he needs follow-up as an outpatient. Patient was instructed to follow up with PCP Dr. Wilson within one week and patient agrees I discussed with patient and family with recommendation to follow up with his fire fighters dispatcher Dr. Haro in one week and they agree Physical exam Gen: patient is a AAOx3, no distress CVS: S1-S2, RRR, no murmur Lungs: B/L CTA, no wheezing -Abdomen: soft, no distention, no tenderness, positive bowel sounds. Left side peritoneal tube for dialysis, it is locked Extremity: no leg edema or induration Time spent more than 35 minutes Patient Condition at Discharge: Serious Plan - Discharge Summary New Discharge Prescriptions: New Docusate [Colace] 100 mg PO DAILY PRN #15 cap PRN Reason: Constipation carvediloL [Coreg*] 25 mg PO BID-W/MEALS #120 tab Insulin Detemir (Levemir) [Levemir] 25 unit SQ DAILY@0700 #10 ml Nitroglycerin Oint [Nitro-Bid Oint] 1 inch TOPICAL Q6HR #1 packet Ondansetron [Zofran] 4 mg PO Q8HR PRN 3 Days #20 tab PRN Reason: Nausea And Vomiting hydrALAZINE HCL [Apresoline] 50 mg PO BID #60 tab amLODIPine [Norvasc] 10 mg PO DAILY #30 tab Pantoprazole [Protonix] 40 mg PO AC-BRKFST #30 tab Sodium Bicarbonate Tab 325 mg PO BID #60 tab INSULIN ASPART (NovoLOG) [NovoLOG (formulary)] See Protocol SQ ACHS #10 ml Continue Calcium Acetate [PhosLo] 667 mg PO BID PRN PRN Reason: WITH SNACKS Ubidecarenone [Co Q-10] 100 mg PO DAILY Multivitamin-Multi Mineral Liquid 1 dose PO DAILY Ascorbic Acid [Vitamin C] 500 mg PO DAILY #30 tab Calcium Acetate [PhosLo] 1,334 mg PO TID-W/MEALS Digestive Enzymes 1 tab PO TID-W/MEALS Aspirin EC [Ecotrin Low Dose] 81 mg PO Q72H [place]-3 Fatty Acids/Fish Oil [Fish Oil 1,000 mg Softgel] 1 cap PO DAILY Cholecalciferol [Vitamin D3 (25 Mcg = 1000 Iu)] 50 mcg PO DAILY #30 tab Discontinued Insulin Glargine,Hum.rec.anlog [Lantus Solostar Pen] 6 - 12 unit SQ DAILY PRN PRN Reason: HIGH BLOOD SUGAR Carvedilol [Coreg] 25 mg PO BID PRN PRN Reason: HIGH BLOOD PRESSURE Discharge Medication List Aspirin EC [Ecotrin Low Dose] 81 mg PO Q72H 09/02/21 [History] Calcium Acetate [PhosLo] 1,334 mg PO TID-W/MEALS 09/02/21 [History] Calcium Acetate [PhosLo] 667 mg PO BID PRN 09/02/21 [History] Digestive Enzymes 1 tab PO TID-W/MEALS 09/02/21 [History] Multivitamin-Multi Mineral Liquid 1 dose PO DAILY 09/02/21 [History] [place] Fatty Acids/Fish Oil [Fish Oil 1,000 mg Softgel] 1 cap PO DAILY 09/02/21 [History] Ubidecarenone [Co Q-10] 100 mg PO DAILY 09/02/21 [History] Ascorbic Acid [Vitamin C] 500 mg PO DAILY #30 tab 09/13/21 [Rx] Cholecalciferol [Vitamin D3 (25 Mcg = 1000 Iu)] 50 mcg PO DAILY #30 tab 09/13/21 [Rx] Docusate [Colace] 100 mg PO DAILY PRN #15 cap 09/13/21 [Rx] INSULIN ASPART (NovoLOG) [NovoLOG (formulary)] See Protocol SQ ACHS #10 ml 09/13/21 [Rx] Insulin Detemir (Levemir) [Levemir] 25 unit SQ DAILY@0700 #10 ml 09/13/21 [Rx] Nitroglycerin Oint [Nitro-Bid Oint] 1 inch TOPICAL Q6HR #1 packet 09/13/21 [Rx] Ondansetron [Zofran] 4 mg PO Q8HR PRN 3 Days #20 tab 09/13/21 [Rx] Pantoprazole [Protonix] 40 mg PO AC-BRKFST #30 tab 09/13/21 [Rx] Sodium Bicarbonate Tab 325 mg PO BID #60 tab 09/13/21 [Rx] amLODIPine [Norvasc] 10 mg PO DAILY #30 tab 09/13/21 [Rx] carvediloL [Coreg*] 25 mg PO BID-W/MEALS #120 tab 09/13/21 [Rx] hydrALAZINE HCL [Apresoline] 50 mg PO BID #60 tab 09/13/21 [Rx] Follow up Appointment(s)/Referral(s): Monse Haro MD [STAFF PHYSICIAN] - 1 Week (Office closed. Please call and schedule appointment for 1 week. ) [facility] [NON-STAFF] - As Needed Devon Wilson MD [STAFF PHYSICIAN] - 1 Week (Office closed. Please call office and make apointment. ) Patient Instructions/Handouts: Coronavirus Disease 2019 (COVID-19), Hyponatremia (DC) Activity/Diet/Wound Care/Special Instructions: Heart healthy, consistent carbohydrate 1800 k jael per day Activity is restricted till you see your doctor we recommend to check your glucose 4 times a day, before each meal and at bedtime. Keep the results in a log book and bring it to your doctor on your appointment date. If your glucose less than 70, or more than 400, and call 911 on come to emergency room Discharge/Stand Alone Forms: Personal Flute Polisher Discharge Disposition: HOME WITH HOME HEALTH SERVICES
== END 2021-09-13 15:21 | disposition home health service (06) | DRG 177 ==
LOC: EC 19:42 → 2SICU 21:38 → 4SSUR 09-07 15:25
PROVIDERS: ADMIT Internal Medicine; ATTEND Internal Medicine
PROC: 3E1M39Z Irrigation of Peritoneal Cavity using Dialysate, Percutaneous Approach (ICD-10-PCS; 2021-09-02)
PROC: 02HV33Z Insertion of Infusion Device into Superior Vena Cava, Percutaneous Approach (ICD-10-PCS; principal; 2021-09-04 12:25)
DX: U07.1 COVID-19 (principal); N18.6 End stage renal disease; G92.8 Other toxic encephalopathy; J12.82 Pneumonia due to coronavirus disease 2019; E87.1 Hypo-osmolality and hyponatremia; I13.2 Hypertensive heart and chronic kidney disease with heart failure and with stage 5 chronic kidney disease, or end stage renal disease; I67.4 Hypertensive encephalopathy; E83.9 Disorder of mineral metabolism, unspecified; N20.0 Calculus of kidney; D63.1 Anemia in chronic kidney disease; E11.22 Type 2 diabetes mellitus with diabetic chronic kidney disease; E11.649 Type 2 diabetes mellitus with hypoglycemia without coma; E11.65 Type 2 diabetes mellitus with hyperglycemia; E78.5 Hyperlipidemia, unspecified; R77.8 Other specified abnormalities of plasma proteins; E86.1 Hypovolemia; E87.6 Hypokalemia; I25.10 Atherosclerotic heart disease of native coronary artery without angina pectoris; Z99.2 Dependence on renal dialysis; I35.0 Nonrheumatic aortic (valve) stenosis; I50.9 Heart failure, unspecified; K57.30 Diverticulosis of large intestine without perforation or abscess without bleeding; Z78.1 Physical restraint status; Z79.4 Long term (current) use of insulin; Z79.899 Other long term (current) drug therapy; Z95.1 Presence of aortocoronary bypass graft; Z98.890 Other specified postprocedural states; Z91.018 Allergy to other foods; Z79.82 Long term (current) use of aspirin
CPT/HCPCS: 36415; 36573; 71045; 74176; 80048; 80053; 81001; 82040; 82042; 82150; 82330; 82945; 83605; 83615; 83690; 83735; 83935; 84100; 84157; 84295; 84300; 84443; 84478; 84484; 85025; 85610; 85730; 86140; 87040; 87070; 87077; 87186; 87205; 87635; 89050; 93306; 95816; 96374; 96375; 99291

== ENCOUNTER 2022-01-26 06:30 | Day surgery (SDC) | payer MEDICARE ==
[2022-01-23 12:03] VITALS: BMI 25.0
[~2022-01-26 06:30] MED LIST: ACETAMINOPHEN TAB 500 MG TAB PO PRN; DEXAMETHASONE SOD PHOSPHATE 4 MG/ML 1 ML VIAL IV ONE; HEPARIN SODIUM,PORCINE/PF 5,000 UNIT/0.5 ML SYRINGE SQ PRN; LACTATED RINGERS 1,000 ML IV SCH; ONDANSETRON 4 MG/2 ML VIAL IVP ONE
[2022-01-26] MEDS ORDERED: HYDROCORTISONE SUCCINATE 100 MG/2 ML VIAL IV PRN (07:00)
[2022-01-26] MEDS ORDERED: fentaNYL (PF) 50 MCG/ML 2 ML AMP IV PRN (07:00)
[2022-01-26 07:20] VITALS: TEMP 97.8
[2022-01-26] MEDS ORDERED: SODIUM CHLORIDE 0.9% 1,000 ML IV ONE (07:25)
[2022-01-26 07:39] LABS: Glucose,Whole Blood 160 mg/dL (75-99)
[2022-01-26] MEDS ORDERED: PROPOFOL 10 MG/ML 20 ML VIAL IV ONE (07:54)
[2022-01-26] MEDS ORDERED: ROCURONIUM 10 MG/ML (5 ML VIAL) IV ONE (07:54)
[2022-01-26] MEDS ORDERED: MIDAZOLAM 2 MG/2 ML VIAL ONE (07:54)
[2022-01-26] MEDS ORDERED: fentaNYL (PF) 50 MCG/ML 2 ML AMP ONE (07:54)
[2022-01-26] MEDS ORDERED: LIDOCAINE 1% INJ 10MG/ML (20 ML MDV) ONE (07:54)
[2022-01-26] MEDS ORDERED: GLYCOPYRROLATE 0.2 MG/ML 2 ML VIAL ONE (07:54)
[2022-01-26] MEDS ORDERED: NEOSTIGMINE 1 MG/ML 10 ML VIAL ONE (07:54)
--- NOTE | 2022-01-26 08:05 | P.GSHP ---
History of Present Illness H&P Date: 01/26/22 Chief Complaint: Right inguinal hernia 76-year-old male here for elective repair right inguinal hernia. This occurred after lifting heavy wood. Increasing in size. Patient has been using a truss. Patient is on peritoneal dialysis. Had a hemodialysis catheter placed on . 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, LEFT TOTAL HIP, BILATERAL CATARACT SURGERY WITH LENS IMPLANT Past Anesthesia/Blood Transfusion Reactions: No Reported Reaction Smoking Status: Former smoker - Past Family History Mother Family Medical History: Cancer Medications and Allergies Home Medications Medication Instructions Recorded Confirmed Type Aspirin EC [Ecotrin Low Dose] 81 mg PO Q72H 09/02/21 01/23/22 History Calcium Acetate [PhosLo] 1,334 mg PO TID-W/MEALS 09/02/21 01/23/22 History Digestive Enzymes 1 tab PO TID-W/MEALS 09/02/21 01/26/22 History Multivitamin-Multi Mineral Liquid 1 dose PO DAILY 09/02/21 01/23/22 History [place]-3 Fatty Acids/Fish Oil [Fish 1 cap PO DAILY 09/02/21 01/23/22 History Oil 1,000 mg Softgel] Ubidecarenone [Co Q-10] 300 mg PO DAILY 09/02/21 01/23/22 History Cholecalciferol [Vitamin D3 (25 50 mcg PO DAILY #30 tab 09/13/21 01/23/22 Rx Mcg = 1000 Iu)] Ondansetron [Zofran] 4 mg PO Q8HR PRN 3 Days #20 tab 09/13/21 01/26/22 Rx [place] 1 tab PO DAILY PRN 01/23/22 01/23/22 History Insulin Glargine [Lantus Vial] 6 unit SQ DAILY 01/23/22 01/26/22 History Losartan [Cozaar] 75 mg PO HS 01/23/22 01/26/22 History carvediloL [Coreg*] 25 mg PO BID 01/23/22 01/26/22 History cloNIDine HCL [Catapres] 0.1 mg PO Q5H PRN 01/23/22 01/26/22 History Allergies Allergy/AdvReac Type Severity Reaction Status Date / Time citric acid Allergy Rash/Hives Verified 01/26/22 07:08 hydrocodone [From [place]] Allergy Hallucinati Verified 01/26/22 07:08 ons latex Allergy Swelling, Verified 01/26/22 07:08 SKIN TURNED RED,BURNING, ITCHING Surgical - Exam Vital Signs Temp Pulse Resp BP Pulse Ox 97.8 F 56 L 18 193/88 99 01/26/22 07:15 01/26/22 07:15 01/26/22 07:15 01/26/22 07:15 01/26/22 07:15 Physical exam: General: Well-developed, well-nourished HEENT: Normocephalic, sclerae nonicteric Abdomen: Nontender, nondistended, reducible right inguinal hernia, right-sided PE cath in place Extremities: No edema Neuro: Alert and oriented Results - Labs 01/26/22 07:35 Abnormal Lab Results - Last 24 Hours (Table) 01/26/22 Range/Units 07:28 POC Glucose (mg/dL) 160 H (75-99) mg/dL Diabetes panel 01/26/22 Range/Units 07:35 Potassium 3.5 (3.5-5.1) mmol/L Pituitary panel 01/26/22 Range/Units 07:35 Potassium 3.5 (3.5-5.1) mmol/L Adrenal panel 01/26/22 Range/Units 07:35 Potassium 3.5 (3.5-5.1) mmol/L Assessment and Plan (1) Inguinal hernia Narrative/Plan: 76-year-old male with right inguinal hernia. We'll proceed with open right inguinal hernia repair with mesh. Risks of bleeding, infection, recurrence, bladder and bowel injury, numbness, nerve injury were discussed with the patient. The patient understands and wishes to proceed. Current Visit: Yes Status: Acute Code(s): K40.90 - UNIL INGUINAL HERNIA, W/O OBST OR GANGR, NOT SPCF RECUR SNOMED Code(s): 864830903
[2022-01-26] MEDS ORDERED: BUPIVACAIN-EPI 0.25%-1:200,000 30 ML VIAL SQ ONE ×2 (08:24→09:09)
--- NOTE | 2022-01-26 09:14 | P.OP ---
Date of Procedure: 01/26/22 Procedure(s) Performed: PREOPERATIVE DIAGNOSIS: Reducible right inguinal hernia POSTOPERATIVE DIAGNOSIS: Same PROCEDURE: Open repair reducible riding or hernia with mesh SURGEON: Dr. Cleveland ANESTHESIA: General OPERATIVE PROCEDURE DETAILS: Patient was placed in the operating table in the supine position and placed under general anesthesia. An oblique incision was made in the right groin. Dissection down through the subcutaneous tissues took place using electrocautery. The external oblique fascia was incised using a scalpel. The patient did have some scarring from previous vascular intervention in the inguinal region. This opening was lengthened using the Metzenbaum scissors. The spermatic cord was encircled with a Bety drain. The structures were identified and preserved. Careful dissection revealed an indirect hernia sac that was moderate in size. This was carefully dissected back to the internal inguinal ring where it was ligated using 2 separate 0 silk stick tie sutures. A 3" x 6" Prolene mesh was cut to fit on the exposed fascia. This was sutured to the pubic tubercle the folding edge of the inguinal ligament and the conjoined tendon. A slit was created in the mesh and the mesh was wrapped around the spermatic cord and sutured back to itself. The external oblique was then reapproximated using a running 2-0 Vicryl suture. The subcutaneous tissues were reapproximated using a 3-0 Vicryl sutures. The skin was closed using 4-0 Monocryl sutures. Skin glue and sterile dressings were then applied. TYPE OF MESH USED: Prolene flat mesh FIXATION: 2-0 Nurolon sutures PREOPERATIVE DISCUSSION ON SMOKING CESSASTION: Yes PREOPERATIVE DISCUSSION ON MORBID OBESITY: Yes PREOPERATIVE DISCUSSION ON APPROPRIATE USE OF NARCOTIC USE: Yes PREOPERATIVE EDUCATION: Multi Modal, Smoking Cessation and Weight Loss with BMI over 35. DISPOSITION: Stable to recovery room
[2022-01-26 09:25] LABS: Glucose,Whole Blood 162 mg/dL (75-99)
[2022-01-26] MEDS ORDERED: hydrALAZINE HCL 20 MG/ML 1 ML VIAL IVP ONE ×2 (09:35→09:54)
[2022-01-26 10:26] LABS: Glucose,Whole Blood 185 mg/dL (75-99)
[2022-01-26] MEDS ORDERED: traMADol 50 MG TAB ONE (10:39)
[2022-01-26 11:53] VITALS: BP 152/66
[2022-01-26] MEDS ORDERED: ACETAMINOPHEN TAB 325 MG TAB PO SCH (12:00)
[2022-01-26] MEDS ORDERED: IBUPROFEN 600 MG TAB PO SCH (12:15)
[2022-01-26 12:38] VITALS: PULSE 62; RESP 20
== END 2022-01-26 12:29 | disposition home or self-care (01) ==
LOC: OR 06:30
PROVIDERS: ATTEND Surgery
DX: K40.90 Unilateral inguinal hernia, without obstruction or gangrene, not specified as recurrent (principal); I25.10 Atherosclerotic heart disease of native coronary artery without angina pectoris; E11.22 Type 2 diabetes mellitus with diabetic chronic kidney disease; I12.9 Hypertensive chronic kidney disease with stage 1 through stage 4 chronic kidney disease, or unspecified chronic kidney disease; N18.9 Chronic kidney disease, unspecified; Z99.2 Dependence on renal dialysis; Z95.5 Presence of coronary angioplasty implant and graft; Z96.643 Presence of artificial hip joint, bilateral; Z96.1 Presence of intraocular lens; Z89.422 Acquired absence of other left toe(s); Z87.891 Personal history of nicotine dependence
CPT/HCPCS: 49505; 84132; 88302; C1781; J2250; J0360; J1100; J2710; J0690; J2405; J2001; J3010; J2704; J1644

== ENCOUNTER 2022-03-09 11:07 | Inpatient (IN) | payer MEDICARE ==
--- NOTE | 2022-03-09 12:04 | ED ---
General Adult HPI - General Chief complaint: Recheck/Abnormal Lab/Rx Stated complaint: Weak Time Seen by Provider: 03/09/22 12:00 Source: patient, family, RN notes reviewed, old records reviewed Mode of arrival: wheelchair Limitations: no limitations - History of Present Illness Initial comments: 76-year-old male patient presents to the emergency room with his complaining of weakness and nausea and vomiting for the past 2 days. Patient states that vomit is clear in color. Also states decreased appetite. Denies any fevers or abdominal pain. He is a peritoneal dialysis patient with his last exchange being this morning at 9:30, due for exchange at 2 PM. states that when he feels this way it is normally his sodium level that's very low. -: days(s) (2) Severity scale (1-10): 0 Associated Symptoms: nausea/vomiting, weakness - Related Data Home Medications Medication Instructions Recorded Confirmed Calcium Acetate [PhosLo] 1,334 mg PO TID-W/MEALS 09/02/21 03/09/22 [place]-3 Fatty Acids/Fish Oil [Fish 1 cap PO DAILY 09/02/21 03/09/22 Oil 1,000 mg Softgel] Ubidecarenone [Co Q-10] 100 mg PO DAILY 09/02/21 03/09/22 Insulin Glargine [Lantus Vial] 6 - 8 unit SQ DAILY 01/23/22 03/09/22 Losartan [Cozaar] 75 mg PO HS 01/23/22 03/09/22 carvediloL [Coreg*] 25 mg PO BID 01/23/22 03/09/22 cloNIDine HCL [Catapres] 0.1 mg PO Q8H PRN 01/23/22 03/09/22 Ascorbic Acid [Vitamin C] 1,000 mg PO DAILY 03/09/22 03/09/22 Calcium Acetate [Phoslo] 667 mg PO BID PRN 03/09/22 03/09/22 Multivit-Min/Folic/Vit K/Lycop 1 tab PO DAILY 03/09/22 03/09/22 [Men's Multivitamin Tablet] Sildenafil Citrate 100 mg PO DAILY PRN 03/09/22 03/09/22 Vitamin D3 + K 1 tab PO DAILY 03/09/22 03/09/22 amLODIPine [Norvasc] 5 mg PO DAILY 03/09/22 03/09/22 ondansetron HCL [Zofran] 8 mg PO DAILY PRN 03/09/22 03/09/22 Allergies Allergy/AdvReac Type Severity Reaction Status Date / Time citric acid Allergy Rash/Hives Verified 03/09/22 13:41 latex Allergy Swelling, Verified 03/09/22 13:41 SKIN TURNED RED,BURNING, ITCHING hydrocodone [From [place]] AdvReac Hallucinati Verified 03/09/22 13:41 ons Review of Systems ROS Statement: Those systems with pertinent positive or pertinent negative responses have been documented in the HPI. ROS Other: All systems not noted in ROS Statement are negative. 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 Absent: scleral icterus, conjunctival injection, periorbital swelling, periorbital tenderness ENT exam: Present: normal exam, normal oropharynx, mucous membranes moist Respiratory exam: Present: normal lung sounds bilaterally. Absent: respiratory distress, accessory muscle use Cardiovascular Exam: Present: regular rate, normal rhythm, other (First-degree AV block) GI/Abdominal exam: Present: soft. Absent: tenderness, guarding, rebound, rigid Extremities exam: Present: normal capillary refill. Absent: pedal edema, calf tenderness Back exam: Present: normal inspection, full ROM. Absent: tenderness, CVA tenderness (R), CVA tenderness (L), rash noted Neurological exam: Present: alert, oriented X3 Psychiatric exam: Present: normal affect, normal mood Skin exam: Present: warm, dry, normal color. Absent: cyanosis, diaphoretic, petechiae Course Vital Signs 03/09/22 03/09/22 11:52 12:40 Temperature 98.0 F Pulse Rate 60 Pulse Rate [ 56 L Sash Repairer ] Respiratory 16 Rate Blood Pressure 149/72 O2 Sat by Pulse 99 Oximetry EKG Findings - EKG Results: EKG: sinus rhythm (Ventricular rate of 57, TX interval 0.251, QRS 0.102, QTC 0.456) Medical Decision Making - Medical Decision Making Chest x-ray shows no acute pulmonary process. His sodium level is 115, he was given 500 mL bolus and be admitted to the hospital for hyponatremia and weakness. I did speak with Dr. Ocampo with nephrology who made changes to dialysate fluid for his 2:00 exchange. Patient and are agreeable to this plan of care. Case was discussed with Dr. Tamayo. - Lab Data Result diagrams: 03/09/22 12:12 03/09/22 12:12 Lab Results 03/09/22 03/09/22 03/09/22 Range/Units 12:12 12:12 12:12 WBC 6.6 (3.8-10.6) k/uL RBC 2.82 L (4.30-5.90) m/uL Hgb 9.0 L (13.0-17.5) gm/dL Hct 24.5 L (39.0-53.0) % MCV 87.0 (80.0-100.0) fL MCH 31.8 (25.0-35.0) pg MCHC 36.6 (31.0-37.0) g/dL RDW 12.7 (11.5-15.5) % Plt Count 161 (150-450) k/uL MPV 8.3 Neutrophils % 63 % Lymphocytes % 15 % Monocytes % 6 % Eosinophils % 14 % Basophils % 0 % Neutrophils # 4.1 (1.3-7.7) k/uL Lymphocytes # 1.0 (1.0-4.8) k/uL Monocytes # 0.4 (0-1.0) k/uL Eosinophils # 0.9 H (0-0.7) k/uL Basophils # 0.0 (0-0.2) k/uL Hyperchromasia Slight PT 10.5 (9.0-12.0) sec INR 1.0 (<1.2) APTT 25.3 (22.0-30.0) sec Sodium 115 L* (137-145) mmol/L Potassium 3.8 (3.5-5.1) mmol/L Chloride 82 L (98-107) mmol/L Carbon Dioxide 27 (22-30) mmol/L Anion Gap 6 mmol/L BUN 67 H (9-20) mg/dL Creatinine 7.82 H* (0.66-1.25) mg/dL Est GFR (CKD-EPI)AfAm 7 (>60 ml/min/1.73 sqM) Est GFR (CKD-EPI)NonAf 6 (>60 ml/min/1.73 sqM) Glucose 171 H (74-99) mg/dL Plasma Lactic Acid Bill (0.7-2.0) mmol/L Calcium 7.6 L (8.4-10.2) mg/dL Magnesium 2.2 (1.6-2.3) mg/dL Total Bilirubin 0.5 (0.2-1.3) mg/dL AST 27 (17-59) U/L ALT 14 (4-49) U/L Alkaline Phosphatase 40 (38-126) U/L Troponin I (0.000-0.034) ng/mL Total Protein 5.0 L (6.3-8.2) g/dL Albumin 2.8 L (3.5-5.0) g/dL 03/09/22 03/09/22 Range/Units 12:12 12:12 WBC (3.8-10.6) k/uL RBC (4.30-5.90) m/uL Hgb (13.0-17.5) gm/dL Hct (39.0-53.0) % MCV (80.0-100.0) fL MCH (25.0-35.0) pg MCHC (31.0-37.0) g/dL RDW (11.5-15.5) % Plt Count (150-450) k/uL MPV Neutrophils % % Lymphocytes % % Monocytes % % Eosinophils % % Basophils % % Neutrophils # (1.3-7.7) k/uL Lymphocytes # (1.0-4.8) k/uL Monocytes # (0-1.0) k/uL Eosinophils # (0-0.7) k/uL Basophils # (0-0.2) k/uL Hyperchromasia PT (9.0-12.0) sec INR (<1.2) APTT (22.0-30.0) sec Sodium (137-145) mmol/L Potassium (3.5-5.1) mmol/L Chloride (98-107) mmol/L Carbon Dioxide (22-30) mmol/L Anion Gap mmol/L BUN (9-20) mg/dL Creatinine (0.66-1.25) mg/dL Est GFR (CKD-EPI)AfAm (>60 ml/min/1.73 sqM) Est GFR (CKD-EPI)NonAf (>60 ml/min/1.73 sqM) Glucose (74-99) mg/dL Plasma Lactic Acid Bill 0.6 L (0.7-2.0) mmol/L Calcium (8.4-10.2) mg/dL Magnesium (1.6-2.3) mg/dL Total Bilirubin (0.2-1.3) mg/dL AST (17-59) U/L ALT (4-49) U/L Alkaline Phosphatase (38-126) U/L Troponin I <0.012 (0.000-0.034) ng/mL Total Protein (6.3-8.2) g/dL Albumin (3.5-5.0) g/dL Disposition Clinical Impression: Hyponatremia, Nausea & vomiting, Weakness Disposition: ADMITTED IP TO THIS [facility] Condition: Good Referrals: Jerry Jara Jr, [Primary Care Provider] - 1-2 days Decision Date: 03/09/22 Decision Time: 13:39
[2022-03-09 12:44] LABS: Albumin 2.8 g/dL (3.5-5.0); Calcium 7.6 mg/dL (8.4-10.2); Magnesium 2.2 mg/dL (1.6-2.3); Potassium 3.8 mmol/L (3.5-5.1); Total Bilirubin 0.5 mg/dL (0.2-1.3)
[2022-03-09 12:45] LABS: Partial Thromboplastin Time 25.3 sec (22.0-30.0); Prothrombin Time 10.5 sec (9.0-12.0)
[2022-03-09 12:55] LABS: Basophils % (A) 0 %; Eosinophils # (A) 0.9 k/uL (0-0.7); Eosinophils % (A) 14 %; HCT 24.5 % (39.0-53.0); Hyperchromasia Slight; Lymphocytes % (A) 15 %; MCH 31.8 pg (25.0-35.0); MCHC 36.6 g/dL (31.0-37.0); Mean Platelet Volume 8.3; Monocytes # (A) 0.4 k/uL (0-1.0); Monocytes % (A) 6 %; Neutrophils # (A) 4.1 k/uL (1.3-7.7); Neutrophils % (A) 63 %; Platelet Count 161 k/uL (150-450); RBC 2.82 m/uL (4.30-5.90); RDW 12.7 % (11.5-15.5); WBC 6.6 k/uL (3.8-10.6)
--- NOTE | 2022-03-09 13:01 | XR ---
EXAMINATION TYPE: XR chest 2V DATE OF EXAM: 03/09/2022 COMPARISON: Chest x-ray September 04, 2021 HISTORY: Weakness. TECHNIQUE: Frontal and lateral views of the chest are obtained. FINDINGS: There is no suspicious focal air space opacity, pleural effusion, or pneumothorax seen. T he cardiac silhouette size is upper limits of normal. Overlying sternal wires and mediastinal clips are redemonstrated. The osseous structures remain demineralized. IMPRESSION: Chronic changes without new suspicious acute pulmonary process.
[2022-03-09] MEDS ORDERED: SODIUM CHLORIDE 0.9% 500 ML 500 ML IV STA (13:35)
[2022-03-09] MEDS ORDERED: NALOXONE 0.4 MG/ML 1 ML VIAL IV PRN (14:01)
[2022-03-09 15:29] LABS: Glucose,Whole Blood 137 mg/dL (75-99)
[2022-03-09] MEDS ORDERED: hydrALAZINE HCL 20 MG/ML 1 ML VIAL IVP STA (15:40)
[2022-03-09] MEDS ORDERED: PANTOPRAZOLE 40 MG/10 ML VIAL IVP SCH (16:30)
[2022-03-09] MEDS ORDERED: SODIUM CHLORIDE 0.9% 1,000 ML IV SCH (17:00)
[2022-03-09] MEDS ORDERED: DIALYSIS (PERIT 1.5%) 1,000 ML 15 G/1,000 ML BAG INTRAPERIT SCH (18:00)
[2022-03-09] MEDS ORDERED: SODIUM CHLORIDE 3%(HYPERTONIC) 500 ML IV SCH (21:15)
[2022-03-09 21:34] LABS: Appearance,Urine Clear (Clear); Bilirubin,Urine Negative (Negative); Blood,Urine Negative (Negative); Color,Urine Light Yellow; Glucose,Urine (UA) 2+ (Negative); Ketones,Urine Negative (Negative); Leukocyte Esterase,Urine Negative (Negative); Nitrite,Urine Negative (Negative); PH, Urine 6.5 (5.0-8.0); Protein,Urine 2+ (Negative); RBC,Urine <1 /hpf (0-5); Specific Gravity,Urine 1.008 (1.001-1.035); Urobilinogen,Urine <2.0 mg/dL (<2.0); WBC,Urine 1 /hpf (0-5)
[2022-03-09 22:31] LABS: Glucose,Whole Blood 168 mg/dL (75-99)
[2022-03-10] MEDS: DIALYSIS (PERIT 1.5%) 2,000 ML 30 G/2,000 ML BAG INTRAPERIT SCH ×2 (00:52→06:45)
[2022-03-10 04:43] VITALS: TEMP 97.9
[2022-03-10 04:47] VITALS: RESP 16
[2022-03-10] MEDS ORDERED: ONDANSETRON 4 MG TAB PO PRN (06:02)
[2022-03-10] MEDS ORDERED: cloNIDine HCL 0.1 MG TAB PO PRN (06:02)
[2022-03-10 06:34] VITALS: BP 154/92; PULSE 67
[2022-03-10] MEDS ORDERED: carvediloL 12.5 MG TAB PO SCH (07:30)
[2022-03-10] MEDS ORDERED: INSULIN ASPART (NovoLOG) 100 UNIT/ML VIAL SQ SCH (07:30)
[2022-03-10 07:56] LABS: Glucose,Whole Blood 122 mg/dL (75-99)
[2022-03-10 08:26] LABS: HCT 28.9 % (39.0-53.0); HGB 10.2 gm/dL (13.0-17.5); MCH 31.4 pg (25.0-35.0); MCHC 35.2 g/dL (31.0-37.0); MCV 89.3 fL (80.0-100.0); Mean Platelet Volume 8.7; Platelet Count 196 k/uL (150-450); RBC 3.24 m/uL (4.30-5.90); WBC 6.9 k/uL (3.8-10.6)
[2022-03-10 08:38] LABS: Albumin 3.3 g/dL (3.5-5.0); Calcium 7.8 mg/dL (8.4-10.2); Potassium 3.7 mmol/L (3.5-5.1); Total Bilirubin 0.5 mg/dL (0.2-1.3); Total Protein 5.7 g/dL (6.3-8.2)
[2022-03-10] MEDS ORDERED: PANTOPRAZOLE 40 MG TABLET PO SCH (09:00)
[2022-03-10] MEDS ORDERED: amLODIPine 5 MG TAB PO SCH (09:00)
--- NOTE | 2022-03-10 09:36 | P.CNPUL ---
History of Present Illness Consult date: 03/10/22 Requesting physician: Jerry Jara Jr Reason for consult: other Chief complaint: Weakness, hyponatremia History of present illness: 76-year-old white male patient with past medical history of end-stage renal disease on peritoneal dialysis 4 times a day, diabetes mellitus type 2, coronary artery disease with previous stenting, peripheral clear disease with amputation of his right second toe, osteoarthritis with previous left total hip surgery, former smoker who came to the emergency department on 03/09/2022 of weakness, nausea, vomiting for the past 2 days. No hematemesis, the emesis was clear in color. Denied any fevers, denied any pulmonary symptoms, no shortness of breath no cough, no phlegm production, no complaints of chest discomfort. No abdominal pain, no urinary symptoms. His PD catheter insertion site is clean dry and intact. Did have ESBL E. coli peritonitis in the past. Patient does have a history of chronic hyponatremia, he had previously been hospitalized for hy ponatremia requiring hypertonic saline infusion. Patient also has history of COVID-19 infection back in 2020 from which he had recovered. Patient does 4 exchanges of peritoneal dialysis a day with 1.5% dextrose solution. He follows with Dr. Haro from nephrology. His admission sodium was 115. Patient was admitted to the intensive care unit for hypertonic saline infusion, today's sodium is up to 121, no further nausea or vomiting, no abdominal pain, abdomen is soft, no fever overnight, patient is breathing comfortably, he is tolerating regular diet, no breathing issues, admission chest x-ray showed chronic changes without new suspicious acute pulmonary process. Review of Systems All systems: negative Constitutional: Reports weakness, Denies chills, Denies fever Eyes: denies blurred vision, denies pain Ears, nose, mouth and throat: Denies headache, Denies sore throat Cardiovascular: Denies chest pain, Denies shortness of breath Respiratory: Denies cough Gastrointestinal: Reports nausea, Reports vomiting, Denies abdominal pain, Denies diarrhea Musculoskeletal: Denies myalgias Integumentary: Denies pruritus, Denies rash Neurological: Denies numbness, Denies weakness Psychiatric: Denies anxiety, Denies depression Endocrine: Denies fatigue, Denies weight change 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, LEFT TOTAL HIP, BILATERAL CATARACT SURGERY WITH LENS IMPLANT Past Anesthesia/Blood Transfusion Reactions: No Reported Reaction Past Psychological History: No Psychological Hx Reported Smoking Status: Former smoker Past Alcohol Use History: None Reported Additional Past Alcohol Use History / Comment(s): STARTED SMOKING AT AGE 16 QUIT AT AGE 29 SMOKED 1PPD Past Drug Use History: None Reported - Past Family History Mother Family Medical History: Cancer Medications and Allergies Home Medications Medication Instructions Recorded Confirmed Type Calcium Acetate [PhosLo] 1,334 mg PO TID-W/MEALS 09/02/21 03/09/22 History [place]-3 Fatty Acids/Fish Oil [Fish 1 cap PO DAILY 09/02/21 03/09/22 History Oil 1,000 mg Softgel] Ubidecarenone [Co Q-10] 100 mg PO DAILY 09/02/21 03/09/22 History Insulin Glargine [Lantus Vial] 6 - 8 unit SQ DAILY 01/23/22 03/09/22 History Losartan [Cozaar] 75 mg PO HS 01/23/22 03/09/22 History carvediloL [Coreg*] 25 mg PO BID 01/23/22 03/09/22 History cloNIDine HCL [Catapres] 0.1 mg PO Q8H PRN 01/23/22 03/09/22 History Ascorbic Acid [Vitamin C] 1,000 mg PO DAILY 03/09/22 03/09/22 History Calcium Acetate [Phoslo] 667 mg PO BID PRN 03/09/22 03/09/22 History Multivit-Min/Folic/Vit K/Lycop 1 tab PO DAILY 03/09/22 03/09/22 History [Men's Multivitamin Tablet] Sildenafil Citrate 100 mg PO DAILY PRN 03/09/22 03/09/22 History Vitamin D3 + K 1 tab PO DAILY 03/09/22 03/09/22 History amLODIPine [Norvasc] 5 mg PO DAILY 03/09/22 03/09/22 History ondansetron HCL [Zofran] 8 mg PO DAILY PRN 03/09/22 03/09/22 History Allergies Allergy/AdvReac Type Severity Reaction Status Date / Time citric acid Allergy Rash/Hives Verified 03/09/22 13:41 latex Allergy Swelling, Verified 03/09/22 13:41 SKIN TURNED RED,BURNING, ITCHING hydrocodone [From [place]] AdvReac Hallucinati Verified 03/09/22 13:41 ons Physical Exam Vitals: Vital Signs Temp Pulse Pulse Resp BP BP Pulse Ox 03/10/22 04:00 82 16 100 03/10/22 03:00 71 15 118/85 03/10/22 02:00 67 14 128/89 03/10/22 01:30 67 17 154/92 03/10/22 01:00 68 15 114/94 154/92 03/10/22 00:30 73 18 03/10/22 00:00 97.9 F 80 22 97 03/09/22 23:30 75 27 H 03/09/22 23:00 66 19 96 03/09/22 22:30 72 24 99 03/09/22 22:28 76 19 03/09/22 21:44 68 18 161/52 03/09/22 21:14 98.3 F 63 18 180/57 100 03/09/22 18:09 98.3 F 71 16 132/41 98 03/09/22 17:00 67 16 147/49 99 03/09/22 12:40 56 L 03/09/22 11:52 98.0 F 60 16 149/72 99 Intake and Output 03/09/22 03/10/22 03/10/22 22:59 06:59 14:59 Intake Total 25 2199 2024 Output Total 100 1300 2700 Balance -75 900 -675 Intake: IV 25 2199 2024 Dialysis 1999 1999 Sodium Chloride 3%( 25 200 25 Hypertonic) 500 ml @ 25 mls/hr IV .Q20H [facility] Rx#: [id number] Output: Drainage 1000 2700 Abdomen 1000 2700 Urine 100 300 0 Other: Voiding Method Toilet Urinal Weight 71 kg 71.3 kg GENERAL EXAM: Alert, pleasant, 76-year-old white male, resting in bed in the intensive care unit, breathing comfortably, is oriented 3, answering questions appropriate, denies any acute distress comfortable in no apparent distress. HEAD: Normocephalic/atraumatic. EYES: Normal reaction of pupils, equal size. Conjunctiva pink, sclera white. NOSE: Clear with pink turbinates. THROAT: No erythema or exudates. NECK: No masses, no JVD, no thyroid enlargement, no adenopathy. CHEST: No chest wall deformity. Symmetrical expansion. LUNGS: Equal air entry with no crackles, wheeze, rhonchi or dullness. CVS: Regular rate and rhythm, normal S1 and S2, no gallops, no murmurs, no rubs ABDOMEN: Soft, nontender. No hepatosplenomegaly, normal bowel sounds, no guarding or rigidity. Left abdomen peritoneal Allises catheter insertion site is clean dry and intact EXTREMITIES: No clubbing, no edema, no cyanosis, 2+ pulses and upper and lower extremities. MUSCULOSKELETAL: Muscle strength and tone normal. SPINE: No scoliosis or deformity SKIN: No rashes CENTRAL NERVOUS SYSTEM: Alert and oriented -3. No focal deficits, tone is normal in all 4 extremities. PSYCHIATRIC: Alert and oriented -3. Appropriate affect. Intact judgment and insight. Results - Laboratory Findings CBC and BMP: 03/10/22 08:13 03/10/22 08:13 PT/INR, D-dimer PT 10.5 sec (9.0-12.0) 03/09/22 12:12 INR 1.0 (<1.2) 03/09/22 12:12 Abnormal lab findings: Abnormal Labs 03/09/22 03/09/22 03/09/22 12:12 12:12 12:12 RBC 2.82 L Hgb 9.0 L Hct 24.5 L Eosinophils # 0.9 H Sodium 115 L* Chloride 82 L BUN 67 H Creatinine 7.82 H* Glucose 171 H POC Glucose (mg/dL) Plasma Lactic Acid Bill Calcium 7.6 L Total Protein 5.0 L Albumin 2.8 L Urine Protein 2+ H Urine Glucose (UA) 2+ H 03/09/22 03/09/22 03/09/22 12:12 15:00 15:28 RBC Hgb Hct Eosinophils # Sodium 117 L* Chloride BUN Creatinine Glucose POC Glucose (mg/dL) 137 H Plasma Lactic Acid Bill 0.6 L Calcium Total Protein Albumin Urine Protein Urine Glucose (UA) 03/09/22 03/09/2222 20:00 22:29 23:36 RBC Hgb Hct Eosinophils # Sodium 116 L* 116 L* Chloride BUN Creatinine Glucose POC Glucose (mg/dL) 168 H Plasma Lactic Acid Bill Calcium Total Protein Albumin Urine Protein Urine Glucose (UA) 03/10/22 03/10/22 03/10/22 02:09 03:39 05:44 RBC Hgb Hct Eosinophils # Sodium 118 L* 117 L* 120 L Chloride BUN Creatinine Glucose POC Glucose (mg/dL) Plasma Lactic Acid Bill Calcium Total Protein Albumin Urine Protein Urine Glucose (UA) 03/10/22 03/10/22 03/10/22 07:53 08:13 08:13 RBC 3.24 L Hgb 10.2 L Hct 28.9 L Eosinophils # Sodium 121 L Chloride 87 L BUN 64 H Creatinine 8.13 H* Glucose 127 H POC Glucose (mg/dL) 122 H Plasma Lactic Acid Bill Calcium 7.8 L Total Protein 5.7 L Albumin 3.3 L Urine Protein Urine Glucose (UA) - Diagnostic Findings Chest x-ray: report reviewed, image reviewed Assessment and Plan Plan: Assessment: #1. Acute on chronic hyponatremia likely hypovolemic related to nausea and vomiting, improved. Patient required 3% hypertonic saline, currently sodium is up to 121 #2. Peritoneal dialysis 4 times a day for last 3 years for history of end-stage renal disease #3. Coronary artery disease with previous stenting #4. Diabetes mellitus type 2 #5. Hypertension #6. History of ESBL peritoneal fluid infection #7. History of COVID-19 infection 2020, recovered #8. Former smoker #9. Peripheral vascular disease with previous history of right second toe amputation #10. Osteoarthritis with previous history of left total hip surgery Plan: Hypertonic saline has been discontinued Today's serum sodium is 121 Clinically patient is stable, asymptomatic, neurologically intact No nausea or vomiting Abdomen is soft No fever or chills We will send peritoneal fluid for culture Increase activity as tolerated Patient is stable to go out of intensive care unit to medical surgical floor Probable discharge tomorrow if cleared by nephrology I have personally seen and examined the patient, performed the documentation and the assessment and plan as written. Number of minutes spent on the visit: [15] I have personally seen and examined the patient and reviewed the documentation. I performed a joint evaluation with the nurse practitioner in this evaluation was done more than 30 minutes. I fully agree with the documentation above and the plan of care. The patient can live outside the intensive care unit. Sodium level is improving is currently up to 121. Is a joint evaluation that was done along with the nurse practitioner. Time with Patient: Greater than 30
--- NOTE | 2022-03-10 09:58 | P.NPCON ---
History of Present Illness - Reason for Consult end stage renal disease - History of Present Illness Reason for consultation: End-stage renal disease and hyponatremia History of present illness: I sent patient is a 76-year-old male seen in consultation for end-stage renal disease and hyponatremia. Patient does peritoneal dialysis at home. Patient states he felt weak and his oral intake had been poor the last few days. Blood work showed low sodium level and patient was advised to go to the hospital. Patient denies any problems with peritoneal dialysis. He denies chest pain or shortness of breath. No edema. He denies vomiting or diarrhea but states he hasn't been eating much. He does try to drink 64 ounces of fluids daily. Chest x-ray showed no evidence of volume overload. He does have history of diabetes. Blood sugars are fairly controlled. Patient's sodium level was 1:15 on admission yesterday around noon and was 121 this morning. Patient received 3% saline overnight. He denies any history of malignancy. Hemodynamically stable. No fever or chills. Vital signs are stable. General: Awake and alert. No acute distress. HEENT: Head exam is unremarkable. LUNGS: Breath sounds decreased. HEART: Rate and Rhythm are regular. ABDOMEN: Soft, no distention. EXTREMITITES: No edema. 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, LEFT TOTAL HIP, BILATERAL CATARACT SURGERY WITH LENS IMPLANT Past Anesthesia/Blood Transfusion Reactions: No Reported Reaction Past Psychological History: No Psychological Hx Reported Smoking Status: Former smoker Past Alcohol Use History: None Reported Additional Past Alcohol Use History / Comment(s): STARTED SMOKING AT AGE 16 QUIT AT AGE 29 SMOKED 1PPD Past Drug Use History: None Reported - Past Family History Mother Family Medical History: Cancer Medications and Allergies Home Medications Medication Instructions Recorded Confirmed Type Calcium Acetate [PhosLo] 1,334 mg PO TID-W/MEALS 09/02/21 03/09/22 History [place]-3 Fatty Acids/Fish Oil [Fish 1 cap PO DAILY 09/02/21 03/09/22 History Oil 1,000 mg Softgel] Ubidecarenone [Co Q-10] 100 mg PO DAILY 09/02/21 03/09/22 History Insulin Glargine [Lantus Vial] 6 - 8 unit SQ DAILY 01/23/22 03/09/22 History Losartan [Cozaar] 75 mg PO HS 01/23/22 03/09/22 History carvediloL [Coreg*] 25 mg PO BID 01/23/22 03/09/22 History cloNIDine HCL [Catapres] 0.1 mg PO Q8H PRN 01/23/22 03/09/22 History Ascorbic Acid [Vitamin C] 1,000 mg PO DAILY 03/09/22 03/09/22 History Calcium Acetate [Phoslo] 667 mg PO BID PRN 03/09/22 03/09/22 History Multivit-Min/Folic/Vit K/Lycop 1 tab PO DAILY 03/09/22 03/09/22 History [Men's Multivitamin Tablet] Sildenafil Citrate 100 mg PO DAILY PRN 03/09/22 03/09/22 History Vitamin D3 + K 1 tab PO DAILY 03/09/22 03/09/22 History amLODIPine [Norvasc] 5 mg PO DAILY 03/09/22 03/09/22 History ondansetron HCL [Zofran] 8 mg PO DAILY PRN 03/09/22 03/09/22 History Allergies Allergy/AdvReac Type Severity Reaction Status Date / Time citric acid Allergy Rash/Hives Verified 03/09/22 13:41 latex Allergy Swelling, Verified 03/09/22 13:41 SKIN TURNED RED,BURNING, ITCHING hydrocodone [From [place]] AdvReac Hallucinati Verified 03/09/22 13:41 ons Physical Exam Vitals: Vital Signs Temp Pulse Pulse Resp BP BP Pulse Ox 03/10/22 04:00 82 16 100 03/10/22 03:00 71 15 118/85 03/10/22 02:00 67 14 128/89 03/10/22 01:30 67 17 154/92 03/10/22 01:00 68 15 114/94 154/92 03/10/22 00:30 73 18 03/10/22 00:00 97.9 F 80 22 97 03/09/22 23:30 75 27 H 03/09/22 23:00 66 19 96 03/09/22 22:30 72 24 99 03/09/22 22:28 76 19 03/09/22 21:44 68 18 161/52 03/09/22 21:14 98.3 F 63 18 180/57 100 03/09/22 18:09 98.3 F 71 16 132/41 98 03/09/22 17:00 67 16 147/49 99 03/09/22 12:40 56 L 03/09/22 11:52 98.0 F 60 16 149/72 99 Intake and Output 03/09/22 03/10/22 03/10/22 22:59 06:59 14:59 Intake Total 25 2199 2024 Output Total 100 1300 2700 Balance -75 900 -675 Intake: IV 25 2199 2024 Dialysis 1999 1999 Sodium Chloride 3%( 25 200 25 Hypertonic) 500 ml @ 25 mls/hr IV .Q20H [facility] Rx#: [id number] Output: Drainage 1000 2700 Abdomen 1000 2700 Urine 100 300 0 Other: Voiding Method Toilet Urinal Weight 71 kg 71.3 kg Results - Lab Results Most recent lab results Calcium 7.8 mg/dL (8.4-10.2) L 03/10/22 08:13 Magnesium 2.2 mg/dL (1.6-2.3) 03/09/22 12:12 03/10/22 08:13 03/10/22 08:13 Assessment and Plan Plan: Assessment: 1. End-stage renal disease maintained on peritoneal dialysis. 2. Hyponatremia, hypovolemic with component of poor solute intake. 3. Hypertension with chronic kidney disease. Stable. 4. Diabetes mellitus. Plan:. Currently off IV fluids. 1200 mL fluid restriction. Encourage oral intake. Patient states his appetite is back to normal. 1 g sodium chloride tablet now. Continue with current PD exchanges. Patient states he wants to go home today. I advised him to stay another day to monitor his sodium levels. If patient wishes to leave AMA, I have advised him to maintain fluid restriction and to increase his protein intake. He is also advised to get BMP checked tomorrow and to return back to the hospital if not feeling well. Thank you for the consultation. I will continue to follow patient with you during his hospital stay.
[2022-03-10] MEDS: SODIUM CHLORIDE TAB 1 GM TAB PO STA (10:36)
--- NOTE | 2022-03-10 11:44 | P.HPIM ---
History of Present Illness H&P Date: 03/10/22 Chief Complaint: Increased weakness, hyponatremia This is a pleasant 76 years old male with past medical history of Heart Failure, Diabetes Mellitus, renal disease on peritoneal Dialysis, Hypertension, history of Coronary Bypass/CABG, reports having nausea and vomiting for approximately 2 days with subsequent increased weakness, advised to report to the ER secondary to abnormal labs. Reports decreased appetite. Blood sugars controlled. Denies diarrhea, denies abdominal pain. Denies fevers/chills. Reports he has not missed any dialysis exchanges, performs 4 times a day. Denies chest pain, palpitations or shortness of breath. EKG sinus bradycardia with first degree AV block, chest x-ray reported chronic changes, nonacute. Sodium level on admission was 1:15 received 500 MLS fluid bolus, followed by a 3% hypertonic saline. Adjustment to Dialysate fluid exchanges as per nephrology. Sodium currently 121 with repeat sodium level scheduled for noon. Review of Systems ROS Statement: Those systems with pertinent positive or pertinent negative responses have been documented in the HPI. ROS Other: All systems not noted in ROS Statement are negative. 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, LEFT TOTAL HIP, BILATERAL CATARACT SURGERY WITH LENS IMPLANT Past Anesthesia/Blood Transfusion Reactions: No Reported Reaction Past Psychological History: No Psychological Hx Reported Smoking Status: Former smoker Past Alcohol Use History: None Reported Additional Past Alcohol Use History / Comment(s): STARTED SMOKING AT AGE 16 QUIT AT AGE 29 SMOKED 1PPD Past Drug Use History: None Reported - Past Family History Mother Family Medical History: Cancer Medications and Allergies Home Medications Medication Instructions Recorded Confirmed Type Calcium Acetate [PhosLo] 1,334 mg PO TID-W/MEALS 09/02/21 03/09/22 History [place]-3 Fatty Acids/Fish Oil [Fish 1 cap PO DAILY 09/02/21 03/09/22 History Oil 1,000 mg Softgel] Ubidecarenone [Co Q-10] 100 mg PO DAILY 09/02/21 03/09/22 History Insulin Glargine [Lantus Vial] 6 - 8 unit SQ DAILY 01/23/22 03/09/22 History Losartan [Cozaar] 75 mg PO HS 01/23/22 03/09/22 History carvediloL [Coreg*] 25 mg PO BID 01/23/22 03/09/22 History cloNIDine HCL [Catapres] 0.1 mg PO Q8H PRN 01/23/22 03/09/22 History Ascorbic Acid [Vitamin C] 1,000 mg PO DAILY 03/09/22 03/09/22 History Calcium Acetate [Phoslo] 667 mg PO BID PRN 03/09/22 03/09/22 History Multivit-Min/Folic/Vit K/Lycop 1 tab PO DAILY 03/09/22 03/09/22 History [Men's Multivitamin Tablet] Sildenafil Citrate 100 mg PO DAILY PRN 03/09/22 03/09/22 History Vitamin D3 + K 1 tab PO DAILY 03/09/22 03/09/22 History amLODIPine [Norvasc] 5 mg PO DAILY 03/09/22 03/09/22 History ondansetron HCL [Zofran] 8 mg PO DAILY PRN 03/09/22 03/09/22 History Allergies Allergy/AdvReac Type Severity Reaction Status Date / Time citric acid Allergy Rash/Hives Verified 03/09/22 13:41 latex Allergy Swelling, Verified 03/09/22 13:41 SKIN TURNED RED,BURNING, ITCHING hydrocodone [From [place]] AdvReac Hallucinati Verified 03/09/22 13:41 ons Physical Exam Vitals: Vital Signs Temp Pulse Pulse Resp BP BP Pulse Ox 03/10/22 04:00 82 16 100 03/10/22 03:00 71 15 118/85 03/10/22 02:00 67 14 128/89 03/10/22 01:30 67 17 154/92 03/10/22 01:00 68 15 114/94 154/92 03/10/22 00:30 73 18 03/10/22 00:00 97.9 F 80 22 97 03/09/22 23:30 75 27 H 03/09/22 23:00 66 19 96 03/09/22 22:30 72 24 99 05/23/22 22:28 76 19 03/09/22 21:44 68 18 161/52 03/09/22 21:14 98.3 F 63 18 180/57 100 03/09/22 18:09 98.3 F 71 16 132/41 98 03/09/22 17:00 67 16 147/49 99 03/09/22 12:40 56 L 03/09/22 11:52 98.0 F 60 16 149/72 99 Intake and Output 03/09/22 03/10/22 03/10/22 22:59 06:59 14:59 Intake Total 25 2199 2024 Output Total 100 1300 2700 Balance -75 900 -675 Intake: IV 2199 Dialysis 1999 1999 Sodium Chloride 3%( 25 200 25 Hypertonic) 500 ml @ 25 mls/hr IV .Q20H [facility] Rx#: [id number] Output: Drainage 1000 2700 Abdomen 1000 2700 Urine 100 300 0 Other: Voiding Method Toilet Urinal Weight 71 kg 71.3 kg -GENERAL: The patient is alert and oriented x3, sitting up at side of bed,no acute distress. Well developed, well nourished. HEENT: Pupils are round and equally reacting to light. EOMI. No scleral icterus. No conjunctival pallor. Normocephalic, atraumatic. No pharyngeal erythema. No thyromegaly. CARDIOVASCULAR: S1 and S2 present. No murmurs, rubs, or gallops. PULMONARY: Chest is clear to auscultation, no wheezing or crackles. ABDOMEN: Soft, nontender, nondistended, normoactive bowel sounds. No palpable organomegaly. PD site, clean, dry, intact EXTREMITIES: No cyanosis, clubbing, or pedal edema. NEUROLOGICAL: Cranial nerves II through XII grossly intact, no focal deficits. Strength and sensation grossly intact. SKIN: Warm and dry, No rashes. Results CBC & Chem 7: 03/10/22 08:13 03/10/22 08:13 Labs: Abnormal Lab Results - Last 24 Hours (Table) 03/09/22 03/09/22 03/09/22 Range/Units 12:12 12:12 12:12 RBC 2.82 L (4.30-5.90) m/uL Hgb 9.0 L (13.0-17.5) gm/dL Hct 24.5 L (39.0-53.0) % Eosinophils # 0.9 H (0-0.7) k/uL Sodium 115 L* (137-145) mmol/L Chloride 82 L (98-107) mmol/L BUN 67 H (9-20) mg/dL Creatinine 7.82 H* (0.66-1.25) mg/dL Glucose 171 H (74-99) mg/dL POC Glucose (mg/dL) (75-99) mg/dL Plasma Lactic Acid Bill (0.7-2.0) mmol/L Calcium 7.6 L (8.4-10.2) mg/dL Total Protein 5.0 L (6.3-8.2) g/dL Albumin 2.8 L (3.5-5.0) g/dL Urine Protein 2+ H (Negative) Urine Glucose (UA) 2+ H (Negative) 03/09/22 03/09/22 03/09/22 Range/Units 12:12 15:00 15:28 RBC (4.30-5.90) m/uL Hgb (13.0-17.5) gm/dL Hct (39.0-53.0) % Eosinophils # (0-0.7) k/uL Sodium 117 L* (137-145) mmol/L Chloride (98-107) mmol/L BUN (9-20) mg/dL Creatinine (0.66-1.25) mg/dL Glucose (74-99) mg/dL POC Glucose (mg/dL) 137 H (75-99) mg/dL Plasma Lactic Acid Bill 0.6 L (0.7-2.0) mmol/L Calcium (8.4-10.2) mg/dL Total Protein (6.3-8.2) g/dL Albumin (3.5-5.0) g/dL Urine Protein (Negative) Urine Glucose (UA) (Negative) 03/09/22 03/09/22 03/09/22 Range/Units 20:00 22:29 23:36 RBC (4.30-5.90) m/uL Hgb (13.0-17.5) gm/dL Hct (39.0-53.0) % Eosinophils # (0-0.7) k/uL Sodium 116 L* 116 L* (137-145) mmol/L Chloride (98-107) mmol/L BUN (9-20) mg/dL Creatinine (0.66-1.25) mg/dL Glucose (74-99) mg/dL POC Glucose (mg/dL) 168 H (75-99) mg/dL Plasma Lactic Acid Bill (0.7-2.0) mmol/L Calcium (8.4-10.2) mg/dL Total Protein (6.3-8.2) g/dL Albumin (3.5-5.0) g/dL Urine Protein (Negative) Urine Glucose (UA) (Negative) 03/10/22 03/10/22 03/10/22 Range/Units 02:09 03:39 05:44 RBC (4.30-5.90) m/uL Hgb (13.0-17.5) gm/dL Hct (39.0-53.0) % Eosinophils # (0-0.7) k/uL Sodium 118 L* 117 L* 120 L (137-145) mmol/L Chloride (98-107) mmol/L BUN (9-20) mg/dL Creatinine (0.66-1.25) mg/dL Glucose (74-99) mg/dL POC Glucose (mg/dL) (75-99) mg/dL Plasma Lactic Acid Bill (0.7-2.0) mmol/L Calcium (8.4-10.2) mg/dL Total Protein (6.3-8.2) g/dL Albumin (3.5-5.0) g/dL Urine Protein (Negative) Urine Glucose (UA) (Negative) 03/10/22 03/10/22 03/10/22 Range/Units 07:53 08:13 08:13 RBC 3.24 L (4.30-5.90) m/uL Hgb 10.2 L (13.0-17.5) gm/dL Hct 28.9 L (39.0-53.0) % Eosinophils # (0-0.7) k/uL Sodium 121 L (137-145) mmol/L Chloride 87 L (98-107) mmol/L BUN 64 H (9-20) mg/dL Creatinine 8.13 H* (0.66-1.25) mg/dL Glucose 127 H (74-99) mg/dL POC Glucose (mg/dL) 122 H (75-99) mg/dL Plasma Lactic Acid Bill (0.7-2.0) mmol/L Calcium 7.8 L (8.4-10.2) mg/dL Total Protein 5.7 L (6.3-8.2) g/dL Albumin 3.3 L (3.5-5.0) g/dL Urine Protein (Negative) Urine Glucose (UA) (Negative) Thrombosis Risk Factor Assmnt - Choose All That Apply Any of the Below Risk Factors Present?: No Other Risk Factors: Yes Each Risk Factor Represents 3 Points: Age 75 years or older Other congenital or acquired thrombophilia - If yes, enter type in comment: No Thrombosis Risk Factor Assessment Total Risk Factor Score: 3 Thrombosis Risk Factor Assessment Level: Moderate Risk Assessment and Plan Assessment: Acute on chronic hyponatremia, hypovolemic secondary to nausea, vomiting, status post 3% hypertonic saline End-stage renal disease, on peritoneal dialysis Diabetes mellitus II CAD, history of stenting,CABG Hypertension History of COVID-2020 History of ESBL peritoneal infection Osteoarthritis Peripheral vascular disease, 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 Maintained on fluid restrictions. Peritoneal fluid culture pending. Patient has been cleared by punchboard inserter for discharge out of ICU to [facility]. Discharge planning in progress potentially for tomorrow pending continued improvement in sodium and final DC recommendations and clearance per nephrology. The impression and plan of care has been dictated as directed. : I performed a history and examination of this patient, discussed the same with the dictator. I agree with the dictator's note ,documented as a scribe. Any additional findings or plans will be noted.
[2022-03-10] MEDS ORDERED: LOSARTAN 25 MG TAB PO SCH (21:00)
== END 2022-03-10 11:55 | disposition left against medical advice (07) | DRG 640 ==
LOC: EC 11:07 → 4SSUR 14:01 → 3SCARD 18:47 → 2SICU 21:15
PROVIDERS: ADMIT Family Medicine; ATTEND Family Medicine
DX: E87.1 Hypo-osmolality and hyponatremia (principal); N18.6 End stage renal disease; I13.2 Hypertensive heart and chronic kidney disease with heart failure and with stage 5 chronic kidney disease, or end stage renal disease; J90 Pleural effusion, not elsewhere classified; I50.9 Heart failure, unspecified; E11.22 Type 2 diabetes mellitus with diabetic chronic kidney disease; E11.51 Type 2 diabetes mellitus with diabetic peripheral angiopathy without gangrene; E86.1 Hypovolemia; R11.2 Nausea with vomiting, unspecified; Z53.29 Procedure and treatment not carried out because of patient's decision for other reasons; I25.10 Atherosclerotic heart disease of native coronary artery without angina pectoris; I44.0 Atrioventricular block, first degree; M19.90 Unspecified osteoarthritis, unspecified site; Z79.4 Long term (current) use of insulin; Z79.899 Other long term (current) drug therapy; Z86.16 Personal history of COVID-19; Z86.19 Personal history of other infectious and parasitic diseases; Z87.891 Personal history of nicotine dependence; Z89.421 Acquired absence of other right toe(s); Z95.1 Presence of aortocoronary bypass graft; Z95.5 Presence of coronary angioplasty implant and graft; Z96.1 Presence of intraocular lens; Z98.41 Cataract extraction status, right eye; Z98.42 Cataract extraction status, left eye; Z99.2 Dependence on renal dialysis; Z91.040 Latex allergy status; Z88.5 Allergy status to narcotic agent; Z88.8 Allergy status to other drugs, medicaments and biological substances
CPT/HCPCS: 36415; 71046; 80053; 81001; 83605; 83735; 84295; 84484; 85025; 85027; 85610; 85730; 93005; 96361; 96374; 96375; 99285

== ENCOUNTER 2022-07-19 16:39 | Inpatient (IN) | payer MEDICARE ==
[2022-07-19 18:59] LABS: Glucose,Whole Blood 164 mg/dL (70-110)
[2022-07-19] MEDS ORDERED: hydrALAZINE HCL 20 MG/ML 1 ML VIAL IVP STA ×2 (19:29→21:00)
--- NOTE | 2022-07-19 19:51 | ED ---
General Adult HPI - General Chief complaint: Recheck/Abnormal Lab/Rx Stated complaint: Hypertention Time Seen by Provider: 07/19/22 18:50 Source: patient Mode of arrival: ambulatory Limitations: no limitations - History of Present Illness Initial comments: 77-year-old male presents to the emergency department for evaluation of elevated blood pressure. Patient states he has had high blood pressure for the past week, though it has sustained greater than 220/100 most of today. States he took a Clonidine 4 hours ago with little change. States he has been taking his medications as prescribed. Did not miss any peritoneal dialysis. States he checks his blood pressure 6 times daily routinely and is totally asymptomatic. States he just wants medicine to bring his blood pressure down and to go home tonight. Discussed options and patient did agree to allow EKG and blood work. Denies fever, chills, headache, blurry vision, dizziness, chest pain, shortness of breath, abdominal pain, nausea, and vomiting. - Related Data Home Medications Medication Instructions Recorded Confirmed Calcium Acetate [PhosLo] 1,334 mg PO TID-W/MEALS 09/02/21 07/19/22 Gantt-3 Fatty Acids/Fish Oil [Fish 1 cap PO DAILY 09/02/21 07/19/22 Oil 1,000 mg Softgel] Ubidecarenone [Co Q-10] 100 mg PO DAILY 09/02/21 07/19/22 Insulin Glargine [Lantus Vial] 6 - 8 unit SQ DAILY 01/23/22 07/19/22 carvediloL [Coreg*] 25 mg PO BID 01/23/22 07/19/22 cloNIDine HCL [Catapres] 0.1 mg PO Q8H PRN 01/23/22 07/19/22 Calcium Acetate [Phoslo] 667 mg PO BID PRN 03/09/22 07/19/22 Multivit-Min/Folic/Vit K/Lycop 1 tab PO DAILY 03/09/22 07/19/22 [Men's Multivitamin Tablet] Sildenafil Citrate 100 mg PO DAILY PRN 03/09/22 07/19/22 ondansetron HCL [Zofran] 8 mg PO DAILY PRN 03/09/22 07/19/22 Cholecalciferol [Vitamin D3 (25 25 mcg PO DAILY 07/19/22 07/19/22 Mcg = 1000 Iu)] Magnesium 250 mg PO DAILY 07/19/22 07/19/22 Sodium Chloride Tab 0.5 gm PO DIRECTED 07/19/22 07/19/22 hydrALAZINE HCL [Apresoline] 25 mg PO TID 07/19/22 07/19/22 Allergies Allergy/AdvReac Type Severity Reaction Status Date / Time citric acid Allergy Rash/Hives Verified 07/19/22 21:23 latex Allergy Swelling, Verified 07/19/22 21:23 SKIN TURNED RED,BURNING, ITCHING hydrocodone [From [place]] AdvReac Hallucinati Verified 07/19/22 21:23 ons Review of Systems ROS Statement: Those systems with pertinent positive or pertinent negative responses have been documented in the HPI. ROS Other: All systems not noted in ROS Statement are negative. 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, LEFT TOTAL HIP, BILATERAL CATARACT SURGERY WITH LENS IMPLANT Past Anesthesia/Blood Transfusion Reactions: No Reported Reaction Past Psychological History: No Psychological Hx Reported Smoking Status: Former smoker Past Alcohol Use History: None Reported Past Drug Use History: None Reported - Past Family History Mother Family Medical History: Cancer General Exam Limitations: no limitations (Well-developed, well-nourished male in no acute distress. Initial temperature 97.5, pulse 56, respirations 20, blood pressure 221/104, pulse ox 97% on room air.) General appearance: alert, in no apparent distress ENT exam: Present: normal exam, normal oropharynx, mucous membranes moist Respiratory exam: Present: normal lung sounds bilaterally. Absent: respiratory distress, wheezes, rales, rhonchi, stridor Cardiovascular Exam: Present: normal rhythm, bradycardia, normal heart sounds. Absent: systolic murmur, diastolic murmur, rubs, gallop, clicks GI/Abdominal exam: Present: soft, normal bowel sounds. Absent: distended, tenderness, guarding, rebound, rigid Neurological exam: Present: alert, oriented X3, CN II-XII intact Psychiatric exam: Present: normal affect, normal mood Skin exam: Present: warm, dry, intact, normal color. Absent: rash Course Vital Signs 07/19/22 07/19/22 07/19/22 16:56 19:43 20:19 Temperature 97.5 F L Pulse Rate 56 L 55 L 59 L Pulse Rate [ Candle Wrapper ] Respiratory 20 16 16 Rate Blood Pressure 221/104 239/102 242/96 Blood Pressure [Right Arm Sitting] Blood Pressure [Right Arm Supine] O2 Sat by Pulse 97 97 98 Oximetry 07/19/22 07/19/22 07/19/22 21:00 21:34 22:00 Temperature Pulse Rate 60 57 L 64 Pulse Rate [ Candle Wrapper ] Respiratory 16 Rate Blood Pressure 243/96 226/96 224/85 Blood Pressure [Right Arm Sitting] Blood Pressure [Right Arm Supine] O2 Sat by Pulse 98 98 Oximetry 07/20/22 07/20/22 07/20/22 00:00 00:13 01:14 Temperature Pulse Rate 65 67 59 L Pulse Rate [ Candle Wrapper ] Respiratory 15 15 Rate Blood Pressure 137/62 140/62 177/82 Blood Pressure [Right Arm Sitting] Blood Pressure [Right Arm Supine] O2 Sat by Pulse 98 97 Oximetry 07/20/22 07/20/22 02:50 05:08 Temperature Pulse Rate Pulse Rate [ 61 Candle Wrapper ] Respiratory Rate Blood Pressure Blood Pressure 145/76 176/70 [Right Arm Sitting] Blood Pressure 200/84 [Right Arm Supine] O2 Sat by Pulse 94 L Oximetry - Reevaluation(s) Reevaluation #1: 07/19/22 20:45 Upon reassessment, patient is asleep and appears to be resting comfortably. He does remain hypertensive therefore repeat dose of hydralazine will be given. Medical record reviewed and laboratory studies compared with baseline. Discussed case with Dr. Goetz. 07/19/22 22:05 Blood pressure remains elevated (226/97). Heart rate 62. Discussed hospital admission with patient and spouse and they again decline. He is due for his home dose of Coreg therefore that will be given. Goal BP 200/95. 07/19/22 23:17 Patient remains hypertensive. Again discussed admission with patient and spouse and they are more inclined at this time. Plan of care reviewed with Dr. Goetz. Cardene infusion will be ordered with a goal MAP 110 (which is 25% decrease from arrival). 07/20/22 00:15 Patient received 1.5mg of Cardene via IV infusion and blood pressure at 15 minute check was 137/62, heart 62. Infusion stopped. BP recheck 140/62. Will continue to monitor closely and admit as an observation patient for hypertensive urgency and hyponatremia. 00:35 Dr. Goetz spoke with Dr. Jara regarding hospital admission. Medical Decision Making - Medical Decision Making This is a pleasant 77-year-old male with a history of CAD, diabetes, peritoneal dialysis, and hypertension who presents to the emergency department for a one- week history of sustained hypertension. Initial blood pressure 220s-230s/100s. He was given hydralazine IV 2 with no change. Patient was asymptomatic and expressed desire to be discharged home to follow up on an outpatient basis. Discussed my concerns at length with patient and spouse regarding hypertensive urgency and he is agreeable to stay in the hospital overnight. Laboratory studies were obtained showing hyponatremia which is consistent with patient's baseline. His renal function is as expected given his ESRD. Cardene drip was initiated and patient received 1.5 mg with a rapid reduction of blood pressure therefore infusion was stopped and blood pressure will be monitored. Patient continues to rest comfortably with no complaints. My attending spoke with the patient's PCP to facilitate inpatient hospital admission. Attending: Sofy. - Lab Data Result diagrams: 07/19/22 19:42 07/19/22 19:42 Lab Results 07/19/22 07/19/22 07/19/22 Range/Units 18:58 19:42 19:42 WBC 5.0 (3.8-10.6) k/uL RBC 3.17 L (4.30-5.90) m/uL Hgb 10.0 L (13.0-17.5) gm/dL Hct 29.1 L (39.0-53.0) % MCV 91.8 (80.0-100.0) fL MCH 31.7 (25.0-35.0) pg MCHC 34.6 (31.0-37.0) g/dL RDW 12.0 (11.5-15.5) % Plt Count 125 L (150-450) k/uL MPV 9.3 Neutrophils % 62 % Lymphocytes % 13 % Monocytes % 7 % Eosinophils % 16 % Basophils % 1 % Neutrophils # 3.1 (1.3-7.7) k/uL Lymphocytes # 0.7 L (1.0-4.8) k/uL Monocytes # 0.4 (0-1.0) k/uL Eosinophils # 0.8 H (0-0.7) k/uL Basophils # 0.0 (0-0.2) k/uL PT 9.9 (9.0-12.0) sec INR 0.9 (<1.2) APTT 25.0 (22.0-30.0) sec Sodium (137-145) mmol/L Potassium (3.5-5.1) mmol/L Chloride (98-107) mmol/L Carbon Dioxide (22-30) mmol/L Anion Gap mmol/L BUN (9-20) mg/dL Creatinine (0.66-1.25) mg/dL Est GFR (CKD-EPI)AfAm (>60 ml/min/1.73 sqM) Est GFR (CKD-EPI)NonAf (>60 ml/min/1.73 sqM) Glucose (74-99) mg/dL POC Glucose (mg/dL) 164 H (70-110) mg/dL POC Glu Crown Presser ID [place], Rosalio Calcium (8.4-10.2) mg/dL Magnesium (1.6-2.3) mg/dL Total Bilirubin (0.2-1.3) mg/dL AST (17-59) U/L ALT (4-49) U/L Alkaline Phosphatase (38-126) U/L Total Protein (6.3-8.2) g/dL Albumin (3.5-5.0) g/dL 07/19/22 Range/Units 19:42 WBC (3.8-10.6) k/uL RBC (4.30-5.90) m/uL Hgb (13.0-17.5) gm/dL Hct (39.0-53.0) % MCV (80.0-100.0) fL MCH (25.0-35.0) pg MCHC (31.0-37.0) g/dL RDW (11.5-15.5) % Plt Count (150-450) k/uL MPV Neutrophils % % Lymphocytes % % Monocytes % % Eosinophils % % Basophils % % Neutrophils # (1.3-7.7) k/uL Lymphocytes # (1.0-4.8) k/uL Monocytes # (0-1.0) k/uL Eosinophils # (0-0.7) k/uL Basophils # (0-0.2) k/uL PT (9.0-12.0) sec INR (<1.2) APTT (22.0-30.0) sec Sodium 121 L (137-145) mmol/L Potassium 4.4 (3.5-5.1) mmol/L Chloride 86 L (98-107) mmol/L Carbon Dioxide 25 (22-30) mmol/L Anion Gap 10 mmol/L BUN 53 H (9-20) mg/dL Creatinine 7.66 H* (0.66-1.25) mg/dL Est GFR (CKD-EPI)AfAm 7 (>60 ml/min/1.73 sqM) Est GFR (CKD-EPI)NonAf 6 (>60 ml/min/1.73 sqM) Glucose 140 H (74-99) mg/dL POC Glucose (mg/dL) (70-110) mg/dL POC Glu Crown Presser ID Calcium 7.9 L (8.4-10.2) mg/dL Magnesium 1.9 (1.6-2.3) mg/dL Total Bilirubin 0.4 (0.2-1.3) mg/dL AST 24 (17-59) U/L ALT 15 (4-49) U/L Alkaline Phosphatase 48 (38-126) U/L Total Protein 5.1 L (6.3-8.2) g/dL Albumin 3.0 L (3.5-5.0) g/dL - EKG Data EKG shows normal: sinus rhythm Rate: bradycardia EKG Comments: EKG obtained at 1937 shows sinus bradycardia with first-degree AV block. Ventricular rate 51, DC interval 240, QRS duration 98, QT/QTc 452/428. Interpretation abnormal ECG. Disposition Clinical Impression: Hypertensive urgency, Hyponatremia Disposition: ADMITTED IP TO THIS HOSP Condition: Serious Is patient prescribed a controlled substance at d/c from ED?: No Decision Date: 07/20/22 Decision Time: 00:35
[2022-07-19 20:12] LABS: Basophils % (A) 1 %; Eosinophils # (A) 0.8 k/uL (0-0.7); Eosinophils % (A) 16 %; HCT 29.1 % (39.0-53.0); Lymphocytes # (A) 0.7 k/uL (1.0-4.8); Lymphocytes % (A) 13 %; MCH 31.7 pg (25.0-35.0); MCHC 34.6 g/dL (31.0-37.0); MCV 91.8 fL (80.0-100.0); Mean Platelet Volume 9.3; Monocytes # (A) 0.4 k/uL (0-1.0); Monocytes % (A) 7 %; Neutrophils # (A) 3.1 k/uL (1.3-7.7); Neutrophils % (A) 62 %; Platelet Count 125 k/uL (150-450); RBC 3.17 m/uL (4.30-5.90)
[2022-07-19 20:22] LABS: INR 0.9 (<1.2); Prothrombin Time 9.9 sec (9.0-12.0)
[2022-07-19 20:37] LABS: Calcium 7.9 mg/dL (8.4-10.2); Magnesium 1.9 mg/dL (1.6-2.3); Potassium 4.4 mmol/L (3.5-5.1); Total Bilirubin 0.4 mg/dL (0.2-1.3); Total Protein 5.1 g/dL (6.3-8.2)
[2022-07-19] MEDS ORDERED: carvediloL 12.5 MG TAB PO STA (22:05)
[2022-07-19] MEDS ORDERED: niCARdipine 20 MG in SODIUM CHLORIDE 0.9% 192 ML IV SCH (23:15)
[2022-07-20] MEDS ORDERED: NALOXONE 0.4 MG/ML 1 ML VIAL IV PRN (00:47)
[2022-07-20] MEDS ORDERED: ALPRAZolam 0.25 MG TAB PO PRN (00:47)
[2022-07-20] MEDS ORDERED: ACETAMINOPHEN TAB 325 MG TAB PO PRN (00:47)
[2022-07-20] MEDS ORDERED: cloNIDine HCL 0.1 MG TAB PO PRN (05:30)
[2022-07-20] MEDS: hydrALAZINE HCL 25 MG TAB PO SCH ×4 (05:43→21:29)
[2022-07-20] MEDS: carvediloL 12.5 MG TAB PO SCH ×2 (05:43→16:33)
[2022-07-20] MEDS: CALCIUM ACETATE 667 MG TAB PO SCH ×3 (07:55→16:34)
[2022-07-20 08:04] LABS: Glucose,Whole Blood 128 mg/dL (70-110)
[2022-07-20] MEDS ORDERED: CALCIUM ACETATE 667 MG TAB PO PRN (09:00)
[2022-07-20] MEDS: CHOLECALCIFEROL 25 MCG (1000 IU) TABLET PO SCH (09:15)
[2022-07-20] MEDS ORDERED: TOLVAPTAN 15 MG 1/2 TABLET PO ONE (11:00)
[2022-07-20 11:08] LABS: Glucose,Whole Blood 188 mg/dL (70-110)
[2022-07-20] MEDS ORDERED: DEXTROSE 50% SYRINGE 50 ML IVP PRN ×2 (11:13)
--- NOTE | 2022-07-20 11:13 | P.NPCON ---
History of Present Illness - Reason for Consult end stage renal disease - History of Present Illness patient is a 77-year-old male with end-stage renal disease maintained on a peritoneal dialysis. He is admitted to the hospital with elevated blood pressuresystolic blood pressure was 220/100 and increase to about 250 systolic. Patient denied any significant complaints. He is also known to have chronic hyponatremia and is maintained on sodium chloride tabs periodically. Patient states that recently he has not been taking the sodium chloride tablets. Serum sodium was 121 on admission. Patient states that he has not missed any of his PD exchanges. no complaints of chest pains or shortness of breath. 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, LEFT TOTAL HIP, BILATERAL CATARACT SURGERY WITH LENS IMPLANT Past Anesthesia/Blood Transfusion Reactions: No Reported Reaction Past Psychological History: No Psychological Hx Reported Smoking Status: Former smoker Past Alcohol Use History: None Reported Past Drug Use History: None Reported - Past Family History Mother Family Medical History: Cancer Medications and Allergies Home Medications Medication Instructions Recorded Confirmed Type Calcium Acetate [PhosLo] 1,334 mg PO TID-W/MEALS 09/02/21 07/19/22 History [place]-3 Fatty Acids/Fish Oil [Fish 1 cap PO DAILY 09/02/21 07/19/22 History Oil 1,000 mg Softgel] Ubidecarenone [Co Q-10] 100 mg PO DAILY 09/02/21 07/19/22 History Insulin Glargine [Lantus Vial] 6 - 8 unit SQ DAILY 01/23/22 07/19/22 History carvediloL [Coreg*] 25 mg PO BID 01/23/22 07/19/22 History cloNIDine HCL [Catapres] 0.1 mg PO Q8H PRN 01/23/22 07/19/22 History Calcium Acetate [Phoslo] 667 mg PO BID PRN 03/09/22 07/19/22 History Multivit-Min/Folic/Vit K/Lycop 1 tab PO DAILY 03/09/22 07/19/22 History [Men's Multivitamin Tablet] Sildenafil Citrate 100 mg PO DAILY PRN 03/09/22 07/19/22 History ondansetron HCL [Zofran] 8 mg PO DAILY PRN 03/09/22 07/19/22 History Cholecalciferol [Vitamin D3 (25 25 mcg PO DAILY 07/19/22 07/19/22 History Mcg = 1000 Iu)] Magnesium 250 mg PO DAILY 07/19/22 07/19/22 History Sodium Chloride Tab 0.5 gm PO DIRECTED 07/19/22 07/19/22 History hydrALAZINE HCL [Apresoline] 25 mg PO TID 07/19/22 07/19/22 History Allergies Allergy/AdvReac Type Severity Reaction Status Date / Time citric acid Allergy Rash/Hives Verified 07/19/22 21:23 latex Allergy Swelling, Verified 07/19/22 21:23 SKIN TURNED RED,BURNING, ITCHING hydrocodone [From [facility]] AdvReac Hallucinati Verified 07/19/22 21:23 ons Physical Exam Vitals: Vital Signs Temp Pulse Pulse Resp BP BP BP 07/20/22 08:22 98.2 F 67 18 172/70 07/20/22 08:00 97.7 F 60 16 180/74 07/20/22 07:59 66 18 179/76 07/20/22 05:08 61 176/70 200/84 07/20/22 02:50 145/76 07/20/22 01:14 59 L 177/82 07/20/22 00:13 67 15 140/62 07/20/22 00:00 65 15 137/62 07/19/22 22:00 64 16 224/85 07/19/22 21:34 57 L 226/96 07/19/22 21:00 60 243/96 07/19/22 20:19 59 L 16 242/96 07/19/22 19:43 55 L 16 239/102 07/19/22 16:56 97.5 F L 56 L 20 221/104 Pulse Ox 07/20/22 08:22 98 07/20/22 08:00 97 07/20/22 07:59 98 07/20/22 05:08 94 L 07/20/22 02:50 07/20/22 01:14 07/20/22 00:13 97 07/20/22 00:00 98 07/19/22 22:00 98 07/19/22 21:34 98 07/19/22 21:00 07/19/22 20:19 98 07/19/22 19:43 97 07/19/22 16:56 97 Intake and Output 07/19/22 07/20/22 07/20/22 22:59 06:59 14:59 Intake Total 240 Balance 240 Intake: Oral 240 Other: Weight 68.039 kg 68.039 kg patient is awake, comfortable, not in any acute distress. 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 End-stage renal disease maintained on peritoneal dialysis 2. Hyponatremia currently hypervolemic expect some improvement with dialysis. Will give 1 dose of [place] 3. Uncontrolled hypertension partly volume sensitive, expect improvement with ultrafiltration with dialysis 4. CK D mineral bone disorder 5. Anemia of chronic disease 6. Coronary artery disease status post coronary artery bypass surgery Plan: start peritoneal dialysis with 2.5% solution for increased UF Repeat sodium today Samsca by mouth 1 Continue with the phosphate binders. Next Thank you for the consultation. We'll continue to follow the patient with you during his hospitalization
[2022-07-20] MEDS: DIALYSIS (PERIT 2.5%) 2,000 ML 50 G/2,000 ML BAG INTRAPERIT SCH ×2 (12:11→17:45)
[2022-07-20] MEDS: INSULIN ASPART (NovoLOG) 100 UNIT/ML VIAL SQ SCH ×3 (12:22→21:29)
[2022-07-20] MEDS: hydrALAZINE HCL 20 MG/ML 1 ML VIAL IVP PRN ×2 (12:35→18:02)
[2022-07-20] MEDS ORDERED: cloNIDine 0.1 MG/24HR PATCH TRANSDERM SCH (13:30)
[2022-07-20 16:51] LABS: Glucose,Whole Blood 170 mg/dL (70-110)
[2022-07-20] MEDS: INSULIN DETEMIR (LEVEMIR) 100 UNIT/ML SYR SQ SCH (18:13)
--- NOTE | 2022-07-20 18:19 | P.HPIM ---
History of Present Illness H&P Date: 07/20/22 Chief Complaint: hypertension This is a 77 year old male well-known to our practice. You've been seeing Dr. Jara for the past nine months. He has a history of end-stage renal failure and is on perineal dialysis. He has been having elevated blood pressures and difficulty controlling them. He's not had anChest pains, pressures, or shortness of breath. He denies any nausea vomiting or other symptoms. blood pressures remain elevated. He were nearly takes hydralazine, carvedilol, and Catapres. Review of Systems All systems: negative 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, LEFT TOTAL HIP, BILATERAL CATARACT SURGERY WITH LENS IMPLANT Past Anesthesia/Blood Transfusion Reactions: No Reported Reaction Past Psychological History: No Psychological Hx Reported Smoking Status: Former smoker Past Alcohol Use History: None Reported Past Drug Use History: None Reported - Past Family History Mother Family Medical History: Cancer Medications and Allergies Home Medications Medication Instructions Recorded Confirmed Type Calcium Acetate [PhosLo] 1,334 mg PO TID-W/MEALS 09/02/21 07/19/22 History [place]-3 Fatty Acids/Fish Oil [Fish 1 cap PO DAILY 09/02/21 07/19/22 History Oil 1,000 mg Softgel] Ubidecarenone [Co Q-10] 100 mg PO DAILY 09/02/21 07/19/22 History Insulin Glargine [Lantus Vial] 6 - 8 unit SQ DAILY 01/23/22 07/19/22 History carvediloL [Coreg*] 25 mg PO BID 01/23/22 07/19/22 History cloNIDine HCL [Catapres] 0.1 mg PO Q8H PRN 01/23/22 07/19/22 History Calcium Acetate [Phoslo] 667 mg PO BID PRN 03/09/22 07/19/22 History Multivit-Min/Folic/Vit K/Lycop 1 tab PO DAILY 03/09/22 07/19/22 History [Men's Multivitamin Tablet] Sildenafil Citrate 100 mg PO DAILY PRN 03/09/22 07/19/22 History ondansetron HCL [Zofran] 8 mg PO DAILY PRN 03/09/22 07/19/22 History Cholecalciferol [Vitamin D3 (25 25 mcg PO DAILY 07/19/22 07/19/22 History Mcg = 1000 Iu)] Magnesium 250 mg PO DAILY 07/19/22 07/19/22 History Sodium Chloride Tab 0.5 gm PO DIRECTED 07/19/22 07/19/22 History hydrALAZINE HCL [Apresoline] 25 mg PO TID 07/19/22 07/19/22 History Allergies Allergy/AdvReac Type Severity Reaction Status Date / Time citric acid Allergy Rash/Hives Verified 07/19/22 21:23 latex Allergy Swelling, Verified 07/19/22 21:23 SKIN TURNED RED,BURNING, ITCHING hydrocodone [From [place]] AdvReac Hallucinati Verified 07/19/22 21:23 ons Physical Exam Vitals: Vital Signs Temp Pulse Pulse Resp BP BP BP 07/20/22 15:33 219/95 07/20/22 14:00 98.0 F 66 16 219/91 07/20/22 12:00 07/20/22 08:22 98.2 F 67 18 172/70 07/20/22 08:00 97.7 F 60 16 07/20/22 07:59 66 18 179/76 07/20/22 05:08 61 176/70 07/20/22 02:50 145/76 07/20/22 01:14 59 L 177/82 07/20/22 00:13 67 15 140/62 07/20/22 00:00 65 15 137/62 07/19/22 22:00 64 16 224/85 07/19/22 21:34 57 L 226/96 07/19/22 21:00 60 243/96 07/19/22 20:19 59 L 16 242/96 07/19/22 19:43 55 L 16 239/102 BP Pulse Ox 07/20/22 15:33 07/20/22 14:00 96 07/20/22 12:00 216/91 07/20/22 08:22 98 07/20/22 08:00 180/74 97 07/20/22 07:59 98 07/20/22 05:08 200/84 94 L 07/20/22 02:50 07/20/22 01:14 07/20/22 00:13 97 07/20/22 00:00 98 07/19/22 22:00 98 07/19/22 21:34 98 07/19/22 21:00 07/19/22 20:19 98 07/19/22 19:43 97 Intake and Output 07/20/22 07/20/22 07/20/22 06:59 14:59 22:59 Intake Total 360 Balance 360 Intake: Oral 360 Other: Weight 68.039 kg - Constitutional General appearance: average body habitus - EENT Eyes: EOMI, PERRLA - Neck Thyroid: bilateral: normal size - Respiratory Respiratory: bilateral: CTA - Cardiovascular Rhythm: regular Heart sounds: normal: S1, S2 Abnormal Heart Sounds: systolic murmur (loud 2/6) - Gastrointestinal General gastrointestinal: normal bowel sounds, no organomegaly (PD cath in place c/d/i) - Neurologic Neurologic: CNII-XII intact - Musculoskeletal Musculoskeletal: strength equal bilaterally - Psychiatric Psychiatric: A&O x's 3 Results CBC & Chem 7: 07/19/22 19:42 07/20/22 10:12 Labs: Abnormal Lab Results - Last 24 Hours (Table) 07/19/22 07/19/22 07/19/22 Range/Units 18:58 19:42 19:42 RBC 3.17 L (4.30-5.90) m/uL Hgb 10.0 L (13.0-17.5) gm/dL Hct 29.1 L (39.0-53.0) % Plt Count 125 L (150-450) k/uL Lymphocytes # 0.7 L (1.0-4.8) k/uL Eosinophils # 0.8 H (0-0.7) k/uL Sodium 121 L (137-145) mmol/L Chloride 86 L (98-107) mmol/L BUN 53 H (9-20) mg/dL Creatinine 7.66 H* (0.66-1.25) mg/dL Glucose 140 H (74-99) mg/dL POC Glucose (mg/dL) 164 H (70-110) mg/dL Hemoglobin A1c (0.0-6.0) % Calcium 7.9 L (8.4-10.2) mg/dL Total Protein 5.1 L (6.3-8.2) g/dL Albumin 3.0 L (3.5-5.0) g/dL 07/20/22 07/20/22 07/20/22 Range/Units 08:02 10:12 11:07 RBC (4.30-5.90) m/uL Hgb (13.0-17.5) gm/dL Hct (39.0-53.0) % Plt Count (150-450) k/uL Lymphocytes # (1.0-4.8) k/uL Eosinophils # (0-0.7) k/uL Sodium 121 L (137-145) mmol/L Chloride (98-107) mmol/L BUN (9-20) mg/dL Creatinine (0.66-1.25) mg/dL Glucose (74-99) mg/dL POC Glucose (mg/dL) 128 H 188 H (70-110) mg/dL Hemoglobin A1c (0.0-6.0) % Calcium (8.4-10.2) mg/dL Total Protein (6.3-8.2) g/dL Albumin (3.5-5.0) g/dL 07/20/22 07/20/22 Range/Units 11:21 16:50 RBC (4.30-5.90) m/uL Hgb (13.0-17.5) gm/dL Hct (39.0-53.0) % Plt Count (150-450) k/uL Lymphocytes # (1.0-4.8) k/uL Eosinophils # (0-0.7) k/uL Sodium (137-145) mmol/L Chloride (98-107) mmol/L BUN (9-20) mg/dL Creatinine (0.66-1.25) mg/dL Glucose (74-99) mg/dL POC Glucose (mg/dL) 170 H (70-110) mg/dL Hemoglobin A1c 6.1 H (0.0-6.0) % Calcium (8.4-10.2) mg/dL Total Protein (6.3-8.2) g/dL Albumin (3.5-5.0) g/dL Thrombosis Risk Factor Assmnt - DVT/VTE Prophylaxis DVT/VTE Prophylaxis: Mechanical Prophylaxis ordered - Choose All That Apply Any of the Below Risk Factors Present?: Yes Each Factor Represents 1 point: Swollen legs (current) Each Risk Factor Represents 3 Points: Age 75 years or older Thrombosis Risk Factor Assessment Total Risk Factor Score: 4 Thrombosis Risk Factor Assessment Level: Moderate Risk Assessment and Plan (1) Hypertensive urgency Current Visit: Yes Status: Acute Code(s): I16.0 - HYPERTENSIVE URGENCY SNOMED Code(s): 660960428 (2) Hyponatremia Current Visit: Yes Status: Acute Code(s): E87.1 - HYPO-OSMOLALITY AND HYPONATREMIA SNOMED Code(s): 54496841 (3) Abdominal pain Current Visit: No Status: Acute Code(s): R10.9 - UNSPECIFIED ABDOMINAL PAIN SNOMED Code(s): 81122088 (4) ESRD on peritoneal dialysis Current Visit: No Status: Acute Code(s): N18.6 - END STAGE RENAL DISEASE; Z99.2 - DEPENDENCE ON RENAL DIALYSIS SNOMED Code(s): 507365914 (5) CAD (coronary artery disease) Current Visit: Yes Status: Acute Code(s): I25.10 - ATHSCL HEART DISEASE OF [place] CORONARY ARTERY W/O ANG PCTRS SNOMED Code(s): 91922033 (6) H/O four vessel coronary artery bypass graft Current Visit: Yes Status: Acute Code(s): Z95.1 - PRESENCE OF AORTOCORONARY BYPASS GRAFT SNOMED Code(s): 790935877 Plan: Continue up peritoneal dialysis per nephrology. Repeat labs in AM Trial of Catapres patch. Continue carvedilol and hydralazine. He'll be reevaluated in the next 24 hours.
[2022-07-20 21:27] LABS: Glucose,Whole Blood 83 mg/dL (70-110)
[2022-07-20] MEDS: cloNIDine HCL 0.1 MG TAB PO SCH (23:19)
[2022-07-20] MEDS: hydrALAZINE HCL 50 MG TAB PO SCH (23:19)
[2022-07-21] MEDS: hydrALAZINE HCL 20 MG/ML 1 ML VIAL IVP PRN ×3 (00:47→19:40)
[2022-07-21] MEDS ORDERED: cloNIDine HCL 0.2 MG TAB PO STA (01:17)
[2022-07-21] MEDS: DIALYSIS (PERIT 2.5%) 2,000 ML 50 G/2,000 ML BAG INTRAPERIT SCH ×5 (01:25→23:45)
[2022-07-21 01:36] LABS: Glucose,Whole Blood 48 mg/dL (70-110)
[2022-07-21 01:49] LABS: Glucose,Whole Blood 180 mg/dL (70-110)
[2022-07-21 05:51] LABS: Glucose,Whole Blood 183 mg/dL (70-110)
[2022-07-21] MEDS: CLEVIDIPINE BUTYRATE 25 MG in EMPTY BAG 1 BAG IV SCH ×2 (06:00→21:02)
[2022-07-21 07:21] LABS: Glucose,Whole Blood 234 mg/dL (70-110)
[2022-07-21] MEDS: CALCIUM ACETATE 667 MG TAB PO SCH ×3 (07:22→17:42)
[2022-07-21] MEDS: carvediloL 12.5 MG TAB PO SCH ×2 (07:22→17:42)
[2022-07-21] MEDS: INSULIN ASPART (NovoLOG) 100 UNIT/ML VIAL SQ SCH ×4 (07:23→21:16)
[2022-07-21] MEDS: INSULIN DETEMIR (LEVEMIR) 100 UNIT/ML SYR SQ SCH (08:49)
[2022-07-21] MEDS: cloNIDine HCL 0.1 MG TAB PO SCH ×5 (09:37→21:23)
[2022-07-21] MEDS: hydrALAZINE HCL 50 MG TAB PO SCH (09:37)
[2022-07-21] MEDS: CHOLECALCIFEROL 25 MCG (1000 IU) TABLET PO SCH (09:38)
[2022-07-21 10:42] LABS: Basophils # (A) 0.03 X 10*3/uL (0.00-0.10); Basophils % (A) 0.5 %; Eosinophils # (A) 0.29 X 10*3/uL (0.04-0.35); Eosinophils % (A) 5.1 %; HCT 30.1 % (39.6-50.0); HGB 10.5 g/dL (13.0-17.0); Immature Grans, Automated 0.4 %; Lymphocytes # (A) 0.57 X 10*3/uL (0.90-5.00); MCH 31.9 pg (27.0-32.0); MCHC 34.9 g/dL (32.0-37.0); MCV 91.5 fL (80.0-97.0); Mean Platelet Volume 10.4 fL (9.5-12.2); Monocytes # (A) 0.37 X 10*3/uL (0.20-1.00); Monocytes % (A) 6.5 %; NRBC Per 100 WBC 0 /100 WBCS (0.0-0.0); Neutrophils # (A) 4.42 X 10*3/uL (1.80-7.70); Neutrophils % (A) 77.5 %; Platelet Count 168 X 10*3/uL (140-440); RBC 3.29 X 10*6/uL (4.40-5.60); RDW 11.9 % (11.5-14.5)
--- NOTE | 2022-07-21 11:15 | P.CNPUL ---
History of Present Illness Consult date: 07/21/22 Requesting physician: Jerry Jara Jr Reason for consult: other (Critical care management) Chief complaint: Hypertension History of present illness: This is a pleasant 77-year-old male patient who follows with Dr. Jara is his primary care provider. He has history of coronary artery disease with previous coronary artery bypass grafting, diabetes mellitus, chronic renal failure on peritoneal dialysis, hypertension, former smoker. He presented here to the emergency room 07/19/2022 with concerns regarding his high blood pressure. He stated it was 220/100 most of the day. He took an extra clonidine without much change. He presented to the ER for the same. He was originally admitted to the regular medical floor however his blood pressure continued to be significantly elevated and he was transferred to the ICU early this morning. He was initiated on a clot proximal drip currently at 4 mg per hour. He is awake and alert in no acute distress. Maintaining good O2 saturations in the 90s on room air. No IV fluids currently. He remains on Coreg, Catapres, a presently. Current blood pressure 141/75 with a mean of 97. White count 5.7. Hemoglobin 10.5. Platelet count 168. Sodium 121. Potassium 4.4. Chloride 86. Bicarb 25. BUN 53. Creatinine 7.66. Glucose 140. Review of Systems REVIEW OF SYSTEMS: CONSTITUTIONAL: Concerns for high blood pressure. Denies any recent significant weight loss or weight gain. EYES: Denies change in vision. EARS, NOSE, MOUTH, THROAT: Denies headaches, denies sore throat. CARDIOVASCULAR: Denies chest pain, palpitations or syncopal episodes. RESPIRATORY: Denies shortness of breath, cough, congestion or hemoptysis. GASTROINTESTINAL: Denies change in appetite, denies abdominal pain GENITOURINARY: Denies hematuria, denies infections. MUSKULOSKELETAL: Denies pain, denies swelling. INTEGUMENTARY: Denies rash, denies eczema. NEUROLOGICAL: Denies recent memory loss, no recent seizure activity. PSYCHIATRIC: Denies anxiety, denies depression. HEMATOLOGIC/LYMPHATIC: Denies anemia, denies enlarged lymph nodes. 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, LEFT TOTAL HIP, BILATERAL CATARACT SURGERY WITH LENS IMPLANT Past Anesthesia/Blood Transfusion Reactions: No Reported Reaction Past Psychological History: No Psychological Hx Reported Smoking Status: Former smoker Past Alcohol Use History: None Reported Past Drug Use History: None Reported - Past Family History Mother Family Medical History: Cancer Medications and Allergies Home Medications Medication Instructions Recorded Confirmed Type Calcium Acetate [PhosLo] 1,334 mg PO TID-W/MEALS 09/02/21 07/19/22 History [place]-3 Fatty Acids/Fish Oil [Fish 1 cap PO DAILY 09/02/21 07/19/22 History Oil 1,000 mg Softgel] Ubidecarenone [Co Q-10] 100 mg PO DAILY 09/02/21 07/19/22 History Insulin Glargine [Lantus Vial] 6 - 8 unit SQ DAILY 01/23/22 07/19/22 History carvediloL [Coreg*] 25 mg PO BID 01/23/22 07/19/22 History cloNIDine HCL [Catapres] 0.1 mg PO Q8H PRN 01/23/22 07/19/22 History Calcium Acetate [Phoslo] 667 mg PO BID PRN 03/09/22 07/19/22 History Multivit-Min/Folic/Vit K/Lycop 1 tab PO DAILY 03/09/22 07/19/22 History [Men's Multivitamin Tablet] Sildenafil Citrate 100 mg PO DAILY PRN 03/09/22 07/19/22 History ondansetron HCL [Zofran] 8 mg PO DAILY PRN 03/09/22 07/19/22 History Cholecalciferol [Vitamin D3 (25 25 mcg PO DAILY 07/19/22 07/19/22 History Mcg = 1000 Iu)] Magnesium 250 mg PO DAILY 07/19/22 07/19/22 History Sodium Chloride Tab 0.5 gm PO DIRECTED 07/19/22 07/19/22 History hydrALAZINE HCL [Apresoline] 25 mg PO TID 07/19/22 07/19/22 History Allergies Allergy/AdvReac Type Severity Reaction Status Date / Time citric acid Allergy Rash/Hives Verified 07/19/22 21:23 latex Allergy Swelling, Verified 07/19/22 21:23 SKIN TURNED RED,BURNING, ITCHING hydrocodone [From [place]] AdvReac Hallucinati Verified 07/19/22 21:23 ons Physical Exam Vitals: Vital Signs Temp Pulse Pulse Resp BP BP BP 07/21/22 10:05 61 141/75 07/21/22 10:00 61 17 182/84 07/21/22 09:45 64 12 145/69 07/21/22 09:30 65 25 H 140/67 07/21/22 09:15 67 18 161/77 07/21/22 09:00 68 12 173/75 07/21/22 08:45 62 15 168/76 07/21/22 08:30 97.8 F 65 15 145/69 07/21/22 08:15 65 13 157/69 07/21/22 08:00 73 16 179/79 07/21/22 07:45 67 11 L 165/71 07/21/22 07:30 62 154/64 07/21/22 07:15 61 12 159/68 07/21/22 07:10 62 13 159/68 07/21/22 07:00 62 7 L 165/70 07/21/22 06:50 68 22 165/70 07/21/22 06:40 62 8 L 137/92 07/21/22 06:30 63 16 206/78 07/21/22 06:20 64 7 L 206/78 07/21/22 06:10 66 20 231/97 07/21/22 06:00 96.7 F L 66 12 165/70 07/21/22 05:50 69 9 L 07/21/22 05:49 73 23 07/21/22 05:16 61 07/21/22 04:09 71 07/21/22 02:21 61 07/21/22 02:13 98.3 F 64 15 212/64 07/21/22 01:48 64 07/21/22 01:14 250/100 07/21/22 00:42 98.3 F 66 18 239/104 07/20/22 22:42 68 237/105 07/20/22 21:17 98.1 F 68 15 230/95 07/20/22 17:52 62 204/86 07/20/22 15:33 219/95 07/20/22 14:00 98.0 F 66 16 219/91 07/20/22 12:00 BP Pulse Ox 07/21/22 10:05 93 L 07/21/22 10:00 92 L 07/21/22 09:45 93 L 07/21/22 09:30 92 L 07/21/22 09:15 07/21/22 09:00 07/21/22 08:45 96 07/21/22 08:30 94 L 07/21/22 08:15 91 L 07/21/22 08:00 92 L 07/21/22 07:45 97 07/21/22 07:30 93 L 07/21/22 07:15 95 07/21/22 07:10 93 L 07/21/22 07:00 93 L 07/21/22 06:50 95 07/21/22 06:40 95 07/21/22 06:30 87 L 07/21/22 06:20 92 L 07/21/22 06:10 97 07/21/22 06:00 96 07/21/22 05:50 96 07/21/22 05:49 07/21/22 05:16 237/102 07/21/22 04:09 231/91 07/21/22 02:21 191/76 07/21/22 02:13 93 L 07/21/22 01:48 212/64 07/21/22 01:14 07/21/22 00:42 92 L 07/20/22 22:42 07/20/22 21:17 96 07/20/22 17:52 07/20/22 15:33 07/20/22 14:00 96 07/20/22 12:00 216/91 Intake and Output 07/20/22 07/21/22 07/21/22 22:59 06:59 14:59 Intake Total 0.333 17.800 Output Total 0 0 Balance 0.333 17.800 Intake: Intake, IV Titration 0.333 17.800 Amount Clevidipine Butyrate 25 0.333 17.800 mg In Empty Bag 1 bag @ 1 MG/HR 2 mls/hr IV .Q24H [facility] Rx#:[id number] Output: Urine 0 0 Other: # Voids 1 GENERAL EXAM: Alert, pleasant 89-year-old male, on room air, comfortable in no apparent distress. HEAD: Normocephalic. EYES: Normal reaction of pupils, equal size. NOSE: Clear with pink turbinates. THROAT: No erythema or exudates. NECK: No masses, no JVD. CHEST: No chest wall deformity. LUNGS: Equal air entry with no crackles, wheeze, rhonchi or dullness. CVS: S1 and S2 normal with no audible murmur, regular rhythm. ABDOMEN: Peritoneal dialysis catheter site clean and dry. No hepatosplenomegaly, normal bowel sounds, no guarding or rigidity. SPINE: No scoliosis or deformity SKIN: No rashes CENTRAL NERVOUS SYSTEM: No focal deficits, tone is normal in all 4 extremities. EXTREMITIES: There is no peripheral edema. No clubbing, no cyanosis. Peripheral pulses are intact. Results - Laboratory Findings CBC and BMP: 07/21/22 07:56 07/20/22 10:12 PT/INR, D-dimer PT 9.9 sec (9.0-12.0) 07/19/22 19:42 INR 0.9 (<1.2) 07/19/22 19:42 Abnormal lab findings: Abnormal Labs 07/19/22 07/19/22 07/19/22 18:58 19:42 19:42 RBC 3.17 L Hgb 10.0 L Hct 29.1 L Plt Count 125 L Lymphocytes # 0.7 L Eosinophils # 0.8 H Sodium 121 L Chloride 86 L BUN 53 H Creatinine 7.66 H* Glucose 140 H POC Glucose (mg/dL) 164 H Hemoglobin A1c Calcium 7.9 L Total Protein 5.1 L Albumin 3.0 L 07/20/22 07/20/22 07/20/22 08:02 10:12 11:07 RBC Hgb Hct Plt Count Lymphocytes # Eosinophils # Sodium 121 L Chloride BUN Creatinine Glucose POC Glucose (mg/dL) 128 H 188 H Hemoglobin A1c Calcium Total Protein Albumin 07/20/22 07/20/22 07/21/22 11:21 16:50 01:35 RBC Hgb Hct Plt Count Lymphocytes # Eosinophils # Sodium Chloride BUN Creatinine Glucose POC Glucose (mg/dL) 170 H 48 L Hemoglobin A1c 6.1 H Calcium Total Protein Albumin 07/21/22 07/21/22 07/21/22 01:48 05:49 07:19 RBC Hgb Hct Plt Count Lymphocytes # Eosinophils # Sodium Chloride BUN Creatinine Glucose POC Glucose (mg/dL) 180 H 183 H 234 H Hemoglobin A1c Calcium Total Protein Albumin 07/21/22 07:56 RBC 3.29 L Hgb 10.5 L Hct 30.1 L Plt Count Lymphocytes # 0.57 L Eosinophils # Sodium Chloride BUN Creatinine Glucose POC Glucose (mg/dL) Hemoglobin A1c Calcium Total Protein Albumin Assessment and Plan Assessment: Hypertensive urgency requiring transfer to ICU on 07/21/2022 and initiated on Cleviprex currently at 4 mg per hour History of hypertension History of end-stage renal disease receiving. Peritoneal dialysis 4 times a day, compliant Coronary disease with previous coronary bypass grafting Diabetes mellitus type 2 History of ESBL. She'll fluid infection Former smoker Peripheral vascular disease with previous history of a right second toe amputation Osteoarthritis Previous COVID-19 infection 2020 Plan: The patient was seen and evaluated Currently stable from the pulmonary critical care standpoint Continue Cleviprex and titrate as tolerated Oral antihypertensives to be adjusted Nephrology is on the case We will continue to follow and make further recommendations based on his clinical status I have personally seen and examined the patient, performed the documentation and the assessment and plan as written. Number of minutes spent on the visit: 20.
[2022-07-21 11:27] LABS: Glucose,Whole Blood 279 mg/dL (70-110)
[2022-07-21 11:28] LABS: BUN/Creat Ratio 6.54 Ratio (12.00-20.00); Blood Urea Nitrogen 51.7 mg/dL (9.0-27.0); Calcium 8.1 mg/dL (8.7-10.3); Potassium 4.3 mmol/L (3.5-5.5)
--- NOTE | 2022-07-21 12:48 | P.PN ---
Subjective Patient is seen for follow-up for end-stage renal disease maintained on peritoneal dialysis He was admitted to the hospital with uncontrolled hypertension. Medications were increased yesterday however last night systolic blood pressure remained above 200 and therefore patient was transferred to the ICU. He was started on clviprex drip. Blood sugar had also dropped according to patient's . Complaining of weakness today. No headache or blurred vision. Objective - Vital Signs Vital signs: Vital Signs Temp 98.2 F 07/21/22 12:00 Pulse 63 07/21/22 12:15 Resp 26 H 07/21/22 12:15 BP 197/93 07/21/22 12:15 Pulse Ox 95 07/21/22 12:15 FiO2 Intake & Output 07/20/22 07/21/22 07/21/22 18:59 06:59 18:59 Intake Total 360 0.333 17.800 Output Total 0 0 Balance 360 0.333 17.800 Intake: Intake, IV Titration 0.333 17.800 Amount Clevidipine Butyrate 25 0.333 17.800 mg In Empty Bag 1 bag @ 1 MG/HR 2 mls/hr IV .Q24H [facility] Rx#:[id number] Oral 360 Output: Urine 0 0 Other: # Voids 2 1 - Exam Patient is awake, comfortable, not in any acute distress Examination of the heart S1 and S2 Examination of the lungs bilateral breath sounds are heard Abdomen is soft nontender Examination of the lower extremities shows edema 1+ bilaterally [employer] exam grossly intact - Labs CBC & Chem 7: 07/21/22 07:56 07/21/22 07:56 Labs: Abnormal Lab Results - Last 24 Hours (Table) 07/20/22 07/20/22 07/21/22 Range/Units 11:21 16:50 01:35 RBC (4.40-5.60) X 10*6/uL Hgb (13.0-17.0) g/dL Hct (39.6-50.0) % Lymphocytes # (0.90-5.00) X 10*3/uL Sodium (135-145) mmol/L Chloride (96-109) mmol/L BUN (9.0-27.0) mg/dL Creatinine (0.6-1.5) mg/dL Est GFR (CKD-EPI)AfAm (60.0-200.0) Est GFR (CKD-EPI)NonAf (60.0-200.0) BUN/Creatinine Ratio (12.00-20.00) Ratio Glucose (70-110) mg/dL POC Glucose (mg/dL) 170 H 48 L (70-110) mg/dL Hemoglobin A1c 6.1 H (0.0-6.0) % Calcium (8.7-10.3) mg/dL 07/21/22 07/21/22 07/21/22 Range/Units 01:48 05:49 07:19 RBC (4.40-5.60) X 10*6/uL Hgb (13.0-17.0) g/dL Hct (39.6-50.0) % Lymphocytes # (0.90-5.00) X 10*3/uL Sodium (135-145) mmol/L Chloride (96-109) mmol/L BUN (9.0-27.0) mg/dL Creatinine (0.6-1.5) mg/dL Est GFR (CKD-EPI)AfAm (60.0-200.0) Est GFR (CKD-EPI)NonAf (60.0-200.0) BUN/Creatinine Ratio (12.00-20.00) Ratio Glucose (70-110) mg/dL POC Glucose (mg/dL) 180 H 183 H 234 H (70-110) mg/dL Hemoglobin A1c (0.0-6.0) % Calcium (8.7-10.3) mg/dL 07/21/22 07/21/22 07/21/22 Range/Units 07:56 07:56 11:25 RBC 3.29 L (4.40-5.60) X 10*6/uL Hgb 10.5 L (13.0-17.0) g/dL Hct 30.1 L (39.6-50.0) % Lymphocytes # 0.57 L (0.90-5.00) X 10*3/uL Sodium 123 L (135-145) mmol/L Chloride 87 L (96-109) mmol/L BUN 51.7 H (9.0-27.0) mg/dL Creatinine 7.9 H* (0.6-1.5) mg/dL Est GFR (CKD-EPI)AfAm 6.9 L (60.0-200.0) Est GFR (CKD-EPI)NonAf 6.0 L (60.0-200.0) BUN/Creatinine Ratio 6.54 L (12.00-20.00) Ratio Glucose 224 H (70-110) mg/dL POC Glucose (mg/dL) 279 H (70-110) mg/dL Hemoglobin A1c (0.0-6.0) % Calcium 8.1 L (8.7-10.3) mg/dL Assessment and Plan Assessment: 1. End-stage renal disease maintained on peritoneal dialysis 2. Hyponatremia currently hypervolemic expect some improvement with dialysis. Status post 1 dose of Samsca. Sodium improved to 123 3. Uncontrolled hypertension partly volume sensitive, expect improvement with ultrafiltration with dialysis. Home blood pressure meds have been increased 4. CK D mineral bone disorder 5. Anemia of chronic disease 6. Coronary artery disease status post coronary artery bypass surgery Plan: Increase UF with peritoneal dialysis and add to 4.25% solution for next exchange. Increase hydralazine to 75 mg 3 times a day. Try to wean off cleviprex drip
[2022-07-21 13:27] LABS: African American GFR (CKD) 6.9 (60.0-200.0)
[2022-07-21] MEDS: hydrALAZINE HCL 25 MG TAB PO SCH ×4 (15:55→21:23)
[2022-07-21 21:08] LABS: Glucose,Whole Blood 210 mg/dL (70-110)
[2022-07-21] MEDS: ONDANSETRON 4 MG/2 ML VIAL IVP PRN (22:21)
[2022-07-22] MEDS: ONDANSETRON 4 MG/2 ML VIAL IVP PRN (04:03)
[2022-07-22 04:45] LABS: Basophils % (A) 0 %; Eosinophils # (A) 0.4 k/uL (0-0.7); Eosinophils % (A) 5 %; HCT 32.9 % (39.0-53.0); HGB 11.3 gm/dL (13.0-17.5); Lymphocytes # (A) 0.6 k/uL (1.0-4.8); Lymphocytes % (A) 9 %; MCH 31.7 pg (25.0-35.0); MCHC 34.5 g/dL (31.0-37.0); Mean Platelet Volume 8.1; Monocytes # (A) 0.4 k/uL (0-1.0); Monocytes % (A) 6 %; Neutrophils # (A) 5.5 k/uL (1.3-7.7); Neutrophils % (A) 79 %; Platelet Count 186 k/uL (150-450); RBC 3.57 m/uL (4.30-5.90)
[2022-07-22 04:57] LABS: Calcium 8.6 mg/dL (8.4-10.2); Potassium 4.4 mmol/L (3.5-5.1)
[2022-07-22] MEDS: DIALYSIS (PERIT 2.5%) 2,000 ML 50 G/2,000 ML BAG INTRAPERIT SCH ×2 (06:02→18:13)
[2022-07-22 06:11] LABS: Glucose,Whole Blood 218 mg/dL (70-110)
[2022-07-22] MEDS: CLEVIDIPINE BUTYRATE 25 MG in EMPTY BAG 1 BAG IV SCH ×3 (06:23→23:06)
[2022-07-22] MEDS: INSULIN DETEMIR (LEVEMIR) 100 UNIT/ML SYR SQ SCH (06:23)
[2022-07-22] MEDS: INSULIN ASPART (NovoLOG) 100 UNIT/ML VIAL SQ SCH ×4 (06:25→20:16)
[2022-07-22] MEDS: carvediloL 12.5 MG TAB PO SCH ×2 (07:06→17:22)
[2022-07-22] MEDS: CALCIUM ACETATE 667 MG TAB PO SCH ×3 (07:06→17:22)
[2022-07-22] MEDS: CHOLECALCIFEROL 25 MCG (1000 IU) TABLET PO SCH (08:00)
[2022-07-22] MEDS: cloNIDine HCL 0.1 MG TAB PO SCH ×3 (08:00→21:41)
[2022-07-22] MEDS: hydrALAZINE HCL 25 MG TAB PO SCH (08:03)
[2022-07-22] MEDS ORDERED: hydrALAZINE HCL 25 MG TAB PO STA (09:30)
[2022-07-22] MEDS: amLODIPine 10 MG TAB PO SCH (09:42)
[2022-07-22] MEDS ORDERED: DIALYSIS (PERIT 1.5%) 2,000 ML 30 G/2,000 ML BAG INTRAPERIT SCH (10:00)
[2022-07-22 11:17] LABS: Glucose,Whole Blood 305 mg/dL (70-110)
--- NOTE | 2022-07-22 11:28 | P.PN ---
Subjective Progress Note Date: 07/22/22 This is a pleasant 77-year-old male patient who follows with Dr. Jara is his primary care provider. He has history of coronary artery disease with previous coronary artery bypass grafting, diabetes mellitus, chronic renal failure on peritoneal dialysis, hypertension, former smoker. He presented here to the emergency room 07/19/2022 with concerns regarding his high blood pressure. He stated it was 220/100 most of the day. He took an extra clonidine without much change. He presented to the ER for the same. He was originally admitted to the regular medical floor however his blood pressure continued to be significantly elevated and he was transferred to the ICU early this morning. He was initiated on a clot proximal drip currently at 4 mg per hour. He is awake and alert in no acute distress. Maintaining good O2 saturations in the 90s on room air. No IV fluids currently. He remains on Coreg, Catapres, a presently. Current blood pressure 141/75 with a mean of 97. White count 5.7. Hemoglobin 10.5. Platelet count 168. Sodium 121. Potassium 4.4. Chloride 86. Bicarb 25. BUN 53. Creatinine 7.66. Glucose 140. The patient is seen today 07/22/2022 in follow-up in the intensive care unit. He is currently sitting up in bed. Awake and alert in no acute distress. Maintaining good O2 saturations in the 90s on room air. Normal saline at KVO. Cleviprex at 2 mg per hour. Also on carvedilol, ,hydralazine. Remains somewhat hypertensive. White count 7.0. Hemoglobin 11.3. Sodium 123. Potassium 4.4. Chloride 86. Bicarb 27. BUN 55. Creatinine 8.02. Glucose 207. Continues with peritoneal dialysis. Nephrology is on the case. Objective - Vital Signs Vital signs: Vital Signs Temp 98.6 F 07/22/22 06:00 Pulse 62 07/22/22 11:00 Resp 12 07/22/22 11:00 BP 151/70 07/22/22 11:00 Pulse Ox 98 07/22/22 11:00 FiO2 Intake & Output 07/21/22 07/22/22 07/22/22 18:59 06:59 18:59 Intake Total 302.316 2152.1 36.667 Output Total 0 0 Balance 650.083 1876.1 36.667 Weight 68.03 kg Intake: IV 15 .9NS 15 Intake, IV Titration 17.800 42.1 21.667 Amount Clevidipine Butyrate 25 17.800 42.1 21.667 mg In Empty Bag 1 bag @ 1 MG/HR 2 mls/hr IV .Q24H [facility] Rx#:[id number] Oral 500 1080 Output: Urine 0 0 Other: Voiding Method Toilet Toilet # Voids 1 0 - Exam GENERAL EXAM: Alert, pleasant 77-year-old male, on room air, comfortable in no apparent distress. HEAD: Normocephalic. EYES: Normal reaction of pupils, equal size. NOSE: Clear with pink turbinates. THROAT: No erythema or exudates. NECK: No masses, no JVD. CHEST: No chest wall deformity. LUNGS: Equal air entry with no crackles, wheeze, rhonchi or dullness. CVS: S1 and S2 normal with no audible murmur, regular rhythm. ABDOMEN: Peritoneal dialysis catheter site clean and dry. No hepatosplen omegaly, normal bowel sounds, no guarding or rigidity. SPINE: No scoliosis or deformity SKIN: No rashes CENTRAL NERVOUS SYSTEM: No focal deficits, tone is normal in all 4 extremities. EXTREMITIES: There is no peripheral edema. No clubbing, no cyanosis. Peripheral pulses are intact. - Labs CBC & Chem 7: 07/22/22 04:06 07/22/22 04:06 Labs: Abnormal Lab Results - Last 24 Hours (Table) 07/21/22 07/21/22 07/21/22 Range/Units 07:56 11:25 21:07 RBC (4.30-5.90) m/uL Hgb (13.0-17.5) gm/dL Hct (39.0-53.0) % Lymphocytes # (1.0-4.8) k/uL Sodium 123 L (135-145) mmol/L Chloride 87 L (96-109) mmol/L BUN 51.7 H (9.0-27.0) mg/dL Creatinine 7.9 H* (0.6-1.5) mg/dL Est GFR (CKD-EPI)AfAm 6.9 L (60.0-200.0) Est GFR (CKD-EPI)NonAf 6.0 L (60.0-200.0) BUN/Creatinine Ratio 6.54 L (12.00-20.00) Ratio Glucose 224 H (70-110) mg/dL POC Glucose (mg/dL) 279 H 210 H (70-110) mg/dL Calcium 8.1 L (8.7-10.3) mg/dL 07/22/22 07/22/22 07/22/22 Range/Units 04:06 04:06 06:10 RBC 3.57 L (4.30-5.90) m/uL Hgb 11.3 L (13.0-17.5) gm/dL Hct 32.9 L (39.0-53.0) % Lymphocytes # 0.6 L (1.0-4.8) k/uL Sodium 123 L (135-145) mmol/L Chloride 86 L (96-109) mmol/L BUN 55 H (9.0-27.0) mg/dL Creatinine 8.02 H* (0.6-1.5) mg/dL Est GFR (CKD-EPI)AfAm (60.0-200.0) Est GFR (CKD-EPI)NonAf (60.0-200.0) BUN/Creatinine Ratio (12.00-20.00) Ratio Glucose 207 H (70-110) mg/dL POC Glucose (mg/dL) 218 H (70-110) mg/dL Calcium (8.7-10.3) mg/dL Assessment and Plan Assessment: Hypertensive urgency requiring transfer to ICU on 07/21/2022 and initiated on Cleviprex currently at 2 mg per hour History of hypertension History of end-stage renal disease receiving. Peritoneal dialysis 4 times a day, compliant Coronary disease with previous coronary bypass grafting Diabetes mellitus type 2 History of ESBL. She'll fluid infection Former smoker Peripheral vascular disease with previous history of a right second toe amputation Osteoarthritis Previous COVID-19 infection 2020 Plan: The patient was seen and evaluated Stable and on room air Add amlodipine 10 mg by mouth daily Wean off the Cleviprex as tolerated We will continue to follow I have personally seen and examined the patient, performed the documentation and the assessment and plan as written. Number of minutes spent on the visit: 10.
--- NOTE | 2022-07-22 11:57 | P.PN ---
Subjective Progress Note Date: 07/21/22 H&P Date: 07/20/22 Chief Complaint: hypertension This is a 77 year old male well-known to our practice. You've been seeing Dr. Jara for the past nine months. He has a history of end-stage renal failure and is on perineal dialysis. He has been having elevated blood pressures and difficulty controlling them. He's not had anChest pains, pressures, or shortness of breath. He denies any nausea vomiting or other symptoms. blood pressures remain elevated. He were nearly takes hydralazine, carvedilol, and Catapres. 07/21/2022 for Mrs. LOPEZ with uncontrollable blood pressure, initiated on Cleviprex drip. Currently off of cleviprex drip, hydralazine increased. Staff reports with peritoneal dialysis extra 1000 taken off, for a total of 3 L. Telemetry sinus rhythm, systolic blood pressures currently in the 150s. Afebrile, normal WBC, maintaining O2 sats in the 90s on room air. Hemoglobin 10.5, platelets 168, sodium increased to 123, bicarb 25, BUN 51.7, creatinine 7.9. Objective - Vital Signs Vital signs: Vital Signs Temp 98.2 F 07/21/22 12:00 Pulse 65 07/21/22 15:48 Resp 23 07/21/22 15:15 BP 134/64 07/21/22 15:48 Pulse Ox 96 07/21/22 15:48 FiO2 Intake & Output 07/20/22 07/21/22 07/21/22 18:59 06:59 18:59 Intake Total 360 0.333 17.800 Output Total 0 0 Balance 360 0.333 17.800 Intake: Intake, IV Titration 0.333 17.800 Amount Clevidipine Butyrate 25 0.333 17.800 mg In Empty Bag 1 bag @ 1 MG/HR 2 mls/hr IV .Q24H [facility] Rx#:[id number] Oral 360 Output: Urine 0 0 Other: # Voids 2 1 - Exam PHYSICAL EXAM: VITAL SIGNS: [As above] GENERAL: Sitting up in bed, no acute distress HEENT: Conjunctivae normal. eyes normal. MMM. NECK: Supple, No JVD. CARDIOVASCULAR: S1, S2 regular. No murmur RESPIRATION: Unlabored, Breath sounds diminished in the bases. No rhonchi or crackles. ABDOMEN: Soft, nontender . No guarding. no masses palpable. Bowel sounds heard. Peritoneal dialysis catheter present. LEGS: No edema. no swelling. PSYCHIATRY: Alert and oriented X3, mood and affect normal. NERVOUS SYSTEM: Cranial N 2-12 grossly normal. No focal deficits. Strength and sensation grossly intact. Skin: Warm and dry, no rash - Labs CBC & Chem 7: 07/22/22 04:06 07/22/22 04:06 Labs: Abnormal Lab Results - Last 24 Hours (Table) 07/20/22 07/20/22 07/21/22 Range/Units 11:21 16:50 01:35 RBC (4.40-5.60) X 10*6/uL Hgb (13.0-17.0) g/dL Hct (39.6-50.0) % Lymphocytes # (0.90-5.00) X 10*3/uL Sodium (135-145) mmol/L Chloride (96-109) mmol/L BUN (9.0-27.0) mg/dL Creatinine (0.6-1.5) mg/dL Est GFR (CKD-EPI)AfAm (60.0-200.0) Est GFR (CKD-EPI)NonAf (60.0-200.0) BUN/Creatinine Ratio (12.00-20.00) Ratio Glucose (70-110) mg/dL POC Glucose (mg/dL) 170 H 48 L (70-110) mg/dL Hemoglobin A1c 6.1 H (0.0-6.0) % Calcium (8.7-10.3) mg/dL 07/21/22 07/21/22 07/21/22 Range/Units 01:48 05:49 07:19 RBC (4.40-5.60) X 10*6/uL Hgb (13.0-17.0) g/dL Hct (39.6-50.0) % Lymphocytes # (0.90-5.00) X 10*3/uL Sodium (135-145) mmol/L Chloride (96-109) mmol/L BUN (9.0-27.0) mg/dL Creatinine (0.6-1.5) mg/dL Est GFR (CKD-EPI)AfAm (60.0-200.0) Est GFR (CKD-EPI)NonAf (60.0-200.0) BUN/Creatinine Ratio (12.00-20.00) Ratio Glucose (70-110) mg/dL POC Glucose (mg/dL) 180 H 183 H 234 H (70-110) mg/dL Hemoglobin A1c (0.0-6.0) % Calcium (8.7-10.3) mg/dL 07/21/22 07/21/22 07/21/22 Range/Units 07:56 07:56 11:25 RBC 3.29 L (4.40-5.60) X 10*6/uL Hgb 10.5 L (13.0-17.0) g/dL Hct 30.1 L (39.6-50.0) % Lymphocytes # 0.57 L (0.90-5.00) X 10*3/uL Sodium 123 L (135-145) mmol/L Chloride 87 L (96-109) mmol/L BUN 51.7 H (9.0-27.0) mg/dL Creatinine 7.9 H* (0.6-1.5) mg/dL Est GFR (CKD-EPI)AfAm 6.9 L (60.0-200.0) Est GFR (CKD-EPI)NonAf 6.0 L (60.0-200.0) BUN/Creatinine Ratio 6.54 L (12.00-20.00) Ratio Glucose 224 H (70-110) mg/dL POC Glucose (mg/dL) 279 H (70-110) mg/dL Hemoglobin A1c (0.0-6.0) % Calcium 8.1 L (8.7-10.3) mg/dL Assessment and Plan Assessment: (1) Hypertensive urgency, requiring Cleviprex drip Current Visit: Yes Status: Acute Code(s): I16.0 - HYPERTENSIVE URGENCY SNOMED Code(s): 488700300 (2) Hyponatremia Current Visit: Yes Status: Acute Code(s): E87.1 - HYPO-OSMOLALITY AND HYPONATREMIA SNOMED Code(s): 98029082 (3) Abdominal pain Current Visit: No Status: Acute Code(s): R10.9 - UNSPECIFIED ABDOMINAL PAIN SNOMED Code(s): 73404301 (4) ESRD on peritoneal dialysis Current Visit: No Status: Acute Code(s): N18.6 - END STAGE RENAL DISEASE; Z99.2 - DEPENDENCE ON RENAL DIALYSIS SNOMED Code(s): 523042928 (5) CAD (coronary artery disease) Current Visit: Yes Status: Acute Code(s): I25.10 - ATHSCL HEART DISEASE OF [place] CORONARY ARTERY W/O ANG PCTRS SNOMED Code(s): 46671529 (6) H/O four vessel coronary artery bypass graft Current Visit: Yes Status: Acute Code(s): Z95.1 - PRESENCE OF AORTOCORONARY BYPASS GRAFT SNOMED Code(s): 287035870 (7) Previous covid-19 infection, 2020 Plan: Continue on current medication regime ,monitoring and symptomatic treatment. Adjusting oral antihypertensives further, attempting to maintain off of the cleviprex drip. Peritoneal dialysis/ultrafiltration as per nephrology. The impression and plan of care has been dictated as directed. : I performed a history and examination of this patient, discussed the same with the dictator. I agree with the dictator's note ,documented as a scribe. Any additional findings or plans will be noted.
[2022-07-22] MEDS ORDERED: INSULIN DETEMIR (LEVEMIR) 100 UNIT/ML SYR SQ ONE (12:00)
--- NOTE | 2022-07-22 12:06 | P.PN ---
Subjective Progress Note Date: 07/22/22 H&P Date: 07/20/22 Chief Complaint: hypertension This is a 77 year old male well-known to our practice. You've been seeing Dr. Jara for the past nine months. He has a history of end-stage renal failure and is on perineal dialysis. He has been having elevated blood pressures and difficulty controlling them. He's not had anChest pains, pressures, or shortness of breath. He denies any nausea vomiting or other symptoms. blood pressures remain elevated. He were nearly takes hydralazine, carvedilol, and Catapres. 07/21/2022 for Mrs. LOPEZ with uncontrollable blood pressure, initiated on Cleviprex drip. Currently off of cleviprex drip, hydralazine increased. Staff reports with peritoneal dialysis extra 1000 taken off, for a total of 3 L. Telemetry sinus rhythm, systolic blood pressures currently in the 150s. Afebrile, normal WBC, maintaining O2 sats in the 90s on room air. Hemoglobin 10.5, platelets 168, sodium increased to 123, bicarb 25, BUN 51.7, creatinine 7.9. 07/22/2022 patient required Cleviprex drip on and off throughout the night. Received additional hydralazine with dose further or increased. Dialysate further adjusted as per nephrology. Hypoglycemic. Objective - Vital Signs Vital signs: Vital Signs Temp 98.6 F 07/22/22 06:00 Pulse 62 07/22/22 11:00 Resp 12 07/22/22 11:00 BP 151/70 07/22/22 11:00 Pulse Ox 98 07/22/22 11:00 FiO2 Intake & Output 07/21/22 07/22/22 07/22/22 18:59 06:59 18:59 Intake Total 935.707 1600.1 36.667 Output Total 0 0 Balance 542.641 0682.1 36.667 Weight 68.03 kg Intake: IV 15 .9NS 15 Intake, IV Titration 17.800 42.1 21.667 Amount Clevidipine Butyrate 25 17.800 42.1 21.667 mg In Empty Bag 1 bag @ 1 MG/HR 2 mls/hr IV .Q24H [facility] Rx#:[id number] Oral 500 1080 Output: Urine 0 0 Other: Voiding Method Toilet Toilet # Voids 1 0 - Exam PHYSICAL EXAM: VITAL SIGNS: [As above] GENERAL: Sitting up in bed, no acute distress. HEENT: Conjunctivae normal. eyes normal. MMM. NECK: Supple, No JVD. CARDIOVASCULAR: S1, S2 regular. No murmur. RESPIRATION: Unlabored, Breath sounds diminished in the bases. No rhonchi or crackles. ABDOMEN: Soft, nontender . No guarding. no masses palpable. Bowel sounds heard. Peritoneal dialysis catheter present. LEGS: No edema. no swelling. No clubbing, no cyanosis PSYCHIATRY: Alert and oriented X3, mood and affect normal. NERVOUS SYSTEM: Cranial N 2-12 grossly normal. No focal deficits. Strength and sensation grossly intact. Skin: Warm and dry, no rash - Labs CBC & Chem 7: 07/22/22 04:06 07/22/22 04:06 Labs: Abnormal Lab Results - Last 24 Hours (Table) 07/21/22 07/21/22 07/22/22 Range/Units 07:56 21:07 04:06 RBC 3.57 L (4.30-5.90) m/uL Hgb 11.3 L (13.0-17.5) gm/dL Hct 32.9 L (39.0-53.0) % Lymphocytes # 0.6 L (1.0-4.8) k/uL Sodium (137-145) mmol/L Chloride (98-107) mmol/L BUN (9-20) mg/dL Creatinine 7.9 H* (0.6-1.5) mg/dL Est GFR (CKD-EPI)AfAm 6.9 L (60.0-200.0) Est GFR (CKD-EPI)NonAf 6.0 L (60.0-200.0) Glucose (74-99) mg/dL POC Glucose (mg/dL) 210 H (70-110) mg/dL 07/22/22 07/22/22 07/22/22 Range/Units 04:06 06:10 11:16 RBC (4.30-5.90) m/uL Hgb (13.0-17.5) gm/dL Hct (39.0-53.0) % Lymphocytes # (1.0-4.8) k/uL Sodium 123 L (137-145) mmol/L Chloride 86 L (98-107) mmol/L BUN 55 H (9-20) mg/dL Creatinine 8.02 H* (0.6-1.5) mg/dL Est GFR (CKD-EPI)AfAm (60.0-200.0) Est GFR (CKD-EPI)NonAf (60.0-200.0) Glucose 207 H (74-99) mg/dL POC Glucose (mg/dL) 218 H 305 H (70-110) mg/dL Assessment and Plan Assessment: (1) Hypertensive urgency, requiring Cleviprex drip Current Visit: Yes Status: Acute Code(s): I16.0 - HYPERTENSIVE URGENCY SNOMED Code(s): 031674013 (2) Hyponatremia Current Visit: Yes Status: Acute Code(s): E87.1 - HYPO-OSMOLALITY AND HYPONATREMIA SNOMED Code(s): 16292566 (3) Abdominal pain Current Visit: No Status: Acute Code(s): R10.9 - UNSPECIFIED ABDOMINAL PAIN SNOMED Code(s): 13059471 (4) ESRD on peritoneal dialysis Current Visit: No Status: Acute Code(s): N18.6 - END STAGE RENAL DISEASE; Z99.2 - DEPENDENCE ON RENAL DIALYSIS SNOMED Code(s): 183756995 (5) CAD (coronary artery disease) Current Visit: Yes Status: Acute Code(s): I25.10 - ATHSCL HEART DISEASE OF [place] CORONARY ARTERY W/O ANG PCTRS SNOMED Code(s): 51811301 (6) H/O four vessel coronary artery bypass graft Current Visit: Yes Status: Acute Code(s): Z95.1 - PRESENCE OF AORTOCORONARY BYPASS GRAFT SNOMED Code(s): 604548007 (7) Previous covid-19 infection, 2020 Plan: Continue on current medication regime ,monitoring and symptomatic treatment. Oral antihypertensives further adjusted; titration of cleviprex drip in progress. Peritoneal dialysis/ultrafiltration as per nephrology. The impression and plan of care has been dictated as directed. : I performed a history and examination of this patient, discussed the same with the dictator. I agree with the dictator's note ,documented as a scribe. Any additional findings or plans will be noted.
[2022-07-22] MEDS: DIALYSIS (PERIT 1.5%) 2,000 ML 30 G/2,000 ML BAG INTRAPERIT SCH ×2 (12:33→23:50)
[2022-07-22] MEDS: hydrALAZINE HCL 20 MG/ML 1 ML VIAL IVP PRN (13:21)
[2022-07-22 13:38] LABS: Glucose,Whole Blood 246 mg/dL (70-110)
--- NOTE | 2022-07-22 16:22 | P.PN ---
Subjective Patient is seen for follow-up for end-stage renal disease maintained on peritoneal dialysis He was admitted to the hospital with uncontrolled hypertension. Patient was transferred to ICU because of uncontrolled hypertension and was maintained on Cleviprrex drip. Medications were increased yesterday and currently he is off of cleviprex. Patient has had about 600-700 mL of ultrafiltration with each exchange. His morning he was complaining of cramps in his lower extremities. Objective - Vital Signs Vital signs: Vital Signs Temp 98.6 F 07/22/22 12:28 Pulse 65 07/22/22 15:00 Resp 22 07/22/22 15:00 BP 175/77 07/22/22 15:00 Pulse Ox 96 07/22/22 15:00 FiO2 Intake & Output 07/21/22 07/22/22 07/22/22 18:59 06:59 18:59 Intake Total 343.529 8247.1 84.600 Output Total 0 0 Balance 296.261 7404.1 84.600 Weight 68.03 kg Intake: IV 40 .9NS 40 Intake, IV Titration 17.800 42.1 44.600 Amount Clevidipine Butyrate 25 17.800 42.1 44.600 mg In Empty Bag 1 bag @ 1 MG/HR 2 mls/hr IV .Q24H [facility] Rx#:[id number] Oral 500 1080 Output: Urine 0 0 Other: Voiding Method Toilet Toilet Toilet # Voids 1 0 - Exam Patient is awake, comfortable, not in any acute distress Examination of the heart S1 and S2 Examination of the lungs bilateral breath sounds are heard Abdomen is soft nontender Examination of the lower extremities shows edema 1+ bilaterally SHADE CUTTER exam grossly intact - Labs CBC & Chem 7: 07/22/22 04:06 07/22/22 04:06 Labs: Abnormal Lab Results - Last 24 Hours (Table) 07/21/22 07/22/22 07/22/22 Range/Units 21:07 04:06 04:06 RBC 3.57 L (4.30-5.90) m/uL Hgb 11.3 L (13.0-17.5) gm/dL Hct 32.9 L (39.0-53.0) % Lymphocytes # 0.6 L (1.0-4.8) k/uL Sodium 123 L (137-145) mmol/L Chloride 86 L (98-107) mmol/L BUN 55 H (9-20) mg/dL Creatinine 8.02 H* (0.66-1.25) mg/dL Glucose 207 H (74-99) mg/dL POC Glucose (mg/dL) 210 H (70-110) mg/dL 07/22/22 07/22/22 07/22/22 Range/Units 06:10 11:16 13:36 RBC (4.30-5.90) m/uL Hgb (13.0-17.5) gm/dL Hct (39.0-53.0) % Lymphocytes # (1.0-4.8) k/uL Sodium (137-145) mmol/L Chloride (98-107) mmol/L BUN (9-20) mg/dL Creatinine (0.66-1.25) mg/dL Glucose (74-99) mg/dL POC Glucose (mg/dL) 218 H 305 H 246 H (70-110) mg/dL Assessment and Plan Assessment: 1. End-stage renal disease maintained on peritoneal dialysis 2. Hyponatremia currently hypervolemic expect some improvement with dialysis. Status post 1 dose of Samsca. Sodium staying at 123. Continue to hold sodium chloride due to uncontrolled hypertension 3. Uncontrolled hypertension partly volume sensitive, expect improvement with ultrafiltration with dialysis. Home blood pressure meds have been increased 4. CK D mineral bone disorder 5. Anemia of chronic disease 6. Coronary artery disease status post coronary artery bypass surgery Plan: Change PD exchanges to 2.5% solution alternating with 1.5% Increase hydralazine to 100 mg 3 times a day. DC Cleviprex Add lisinopril
[2022-07-22] MEDS ORDERED: MAG HYDROX/AL HYDROX/SIMETH 30 ML CUP PO PRN (16:32)
[2022-07-22] MEDS: hydrALAZINE HCL 50 MG TAB PO SCH ×2 (16:37→21:41)
[2022-07-22 16:39] LABS: Glucose,Whole Blood 130 mg/dL (70-110)
[2022-07-22] MEDS ORDERED: PANTOPRAZOLE 40 MG TABLET PO STA (16:52)
[2022-07-22] MEDS: lisinopriL 10 MG TAB PO SCH (17:23)
[2022-07-22 19:57] LABS: Glucose,Whole Blood 206 mg/dL (70-110)
[2022-07-22 21:45] LABS: Glucose,Whole Blood 163 mg/dL (70-110)
[2022-07-23 01:28] LABS: Glucose,Whole Blood 152 mg/dL (70-110)
[2022-07-23] MEDS: DIALYSIS (PERIT 2.5%) 2,000 ML 50 G/2,000 ML BAG INTRAPERIT SCH ×2 (06:16→17:58)
[2022-07-23] MEDS: INSULIN ASPART (NovoLOG) 100 UNIT/ML VIAL SQ SCH ×5 (06:24→21:12)
[2022-07-23 06:25] LABS: Glucose,Whole Blood 138 mg/dL (70-110)
[2022-07-23] MEDS: PANTOPRAZOLE 40 MG TABLET PO SCH (06:27)
[2022-07-23] MEDS: carvediloL 12.5 MG TAB PO SCH ×2 (06:27→18:01)
[2022-07-23] MEDS: CALCIUM ACETATE 667 MG TAB PO SCH ×3 (06:27→18:01)
[2022-07-23] MEDS: INSULIN DETEMIR (LEVEMIR) 100 UNIT/ML SYR SQ SCH (06:28)
[2022-07-23 06:33] LABS: Basophils % (A) 0 %; Eosinophils # (A) 0.6 k/uL (0-0.7); Eosinophils % (A) 8 %; HCT 27.3 % (39.0-53.0); Lymphocytes % (A) 15 %; MCH 32.4 pg (25.0-35.0); MCHC 34.8 g/dL (31.0-37.0); Mean Platelet Volume 8.1; Monocytes # (A) 0.4 k/uL (0-1.0); Monocytes % (A) 6 %; Neutrophils # (A) 4.9 k/uL (1.3-7.7); Neutrophils % (A) 70 %; Platelet Count 172 k/uL (150-450); RBC 2.93 m/uL (4.30-5.90); RDW 12.2 % (11.5-15.5)
[2022-07-23 06:44] LABS: HGB 9.5 gm/dL (13.0-17.5)
[2022-07-23] MEDS: CHOLECALCIFEROL 25 MCG (1000 IU) TABLET PO SCH (08:55)
[2022-07-23] MEDS: amLODIPine 10 MG TAB PO SCH (08:55)
[2022-07-23] MEDS: hydrALAZINE HCL 50 MG TAB PO SCH ×3 (08:56→21:04)
[2022-07-23] MEDS: cloNIDine HCL 0.2 MG TAB PO SCH ×3 (08:56→21:04)
[2022-07-23] MEDS: lisinopriL 10 MG TAB PO SCH (09:24)
--- NOTE | 2022-07-23 10:43 | P.PN ---
Subjective Progress Note Date: 07/23/22 This is a pleasant 77-year-old male patient who follows with Dr. Jara is his primary care provider. He has history of coronary artery disease with previous coronary artery bypass grafting, diabetes mellitus, chronic renal failure on peritoneal dialysis, hypertension, former smoker. He presented here to the emergency room 07/19/2022 with concerns regarding his high blood pressure. He stated it was 220/100 most of the day. He took an extra clonidine without much change. He presented to the ER for the same. He was originally admitted to the regular medical floor however his blood pressure continued to be significantly elevated and he was transferred to the ICU early this morning. He was initiated on a clot proximal drip currently at 4 mg per hour. He is awake and alert in no acute distress. Maintaining good O2 saturations in the 90s on room air. No IV fluids currently. He remains on Coreg, Catapres, a presently. Current blood pressure 141/75 with a mean of 97. White count 5.7. Hemoglobin 10.5. Platelet count 168. Sodium 121. Potassium 4.4. Chloride 86. Bicarb 25. BUN 53. Creatinine 7.66. Glucose 140. The patient is seen today 07/22/2022 in follow-up in the intensive care unit. He is currently sitting up in bed. Awake and alert in no acute distress. Maintaining good O2 saturations in the 90s on room air. Normal saline at KVO. Cleviprex at 2 mg per hour. Also on carvedilol, ,hydralazine. Remains somewhat hypertensive. White count 7.0. Hemoglobin 11.3. Sodium 123. Potassium 4.4. Chloride 86. Bicarb 27. BUN 55. Creatinine 8.02. Glucose 207. Continues with peritoneal dialysis. Nephrology is on the case. The patient is seen today 07/23/2022 in follow-up in the intensive care unit. He is awake and alert in no acute distress. Sitting up in bed. HEENT hearing good O2 saturations in the 90s on room air. He remains on a Cleviprex drip at 2 mg per hour. 0.9 normal saline at KVO. White count 10.0. Hemoglobin 9.5. Sodium 122. Potassium 4.0. BUN 51. Creatinine 7.68. Glucose 118. He is continued on amlodipine, carvedilol, clonidine,apresoline, Zestril. Continued on peritoneal dialysis. Objective - Vital Signs Vital signs: Vital Signs Temp 99 F 07/23/22 04:00 Pulse 62 07/23/22 07:00 Resp 17 07/23/22 07:00 BP 146/63 07/23/22 07:00 Pulse Ox 95 07/23/22 07:00 FiO2 Intake & Output 07/22/22 07/23/22 07/23/22 18:59 06:59 18:59 Intake Total 102.767 60.7 Output Total 0 Balance 102.767 60.7 Weight 76.975 kg Intake: IV 55 5 .9NS 55 5 Intake, IV Titration 47.767 55.7 Amount Clevidipine Butyrate 25 47.767 55.7 mg In Empty Bag 1 bag @ 1 MG/HR 2 mls/hr IV .Q24H [facility] Rx#:[id number] Output: Urine 0 Other: Voiding Method Toilet # Voids 0 - Exam GENERAL EXAM: Alert, 77-year-old male, on room air, comfortable in no apparent distress. HEAD: Normocephalic. EYES: Normal reaction of pupils, equal size. NOSE: Clear with pink turbinates. THROAT: No erythema or exudates. NECK: No masses, no JVD. CHEST: No chest wall deformity. LUNGS: Equal air entry with no crackles, wheeze, rhonchi or dullness. CVS: S1 and S2 normal with no audible murmur, regular rhythm. ABDOMEN: Peritoneal dialysis catheter site clean and dry. No hepatosplenomegaly, normal bowel sounds, no guarding or rigidity. SPINE: No scoliosis or deformity SKIN: No rashes CENTRAL NERVOUS SYSTEM: No focal deficits, tone is normal in all 4 extremities. EXTREMITIES: There is no peripheral edema. No clubbing, no cyanosis. Peripheral pulses are intact. - Labs CBC & Chem 7: 07/23/22 05:49 07/23/22 05:49 Labs: Abnormal Lab Results - Last 24 Hours (Table) 07/22/22 07/22/22 07/22/22 Range/Units 11:16 13:36 16:38 RBC (4.30-5.90) m/uL Hgb (13.0-17.5) gm/dL Hct (39.0-53.0) % Sodium (137-145) mmol/L Chloride (98-107) mmol/L BUN (9-20) mg/dL Creatinine (0.66-1.25) mg/dL Glucose (74-99) mg/dL POC Glucose (mg/dL) 305 H 246 H 130 H (70-110) mg/dL Calcium (8.4-10.2) mg/dL 07/22/22 07/22/22 07/23/22 Range/Units 19:54 21:44 01:27 RBC (4.30-5.90) m/uL Hgb (13.0-17.5) gm/dL Hct (39.0-53.0) % Sodium (137-145) mmol/L Chloride (98-107) mmol/L BUN (9-20) mg/dL Creatinine (0.66-1.25) mg/dL Glucose (74-99) mg/dL POC Glucose (mg/dL) 206 H 163 H 152 H (70-110) mg/dL Calcium (8.4-10.2) mg/dL 07/23/22 07/23/22 07/23/22 Range/Units 05:49 05:49 06:24 RBC 2.93 L (4.30-5.90) m/uL Hgb 9.5 L D (13.0-17.5) gm/dL Hct 27.3 L (39.0-53.0) % Sodium 122 L (137-145) mmol/L Chloride 86 L (98-107) mmol/L BUN 51 H (9-20) mg/dL Creatinine 7.68 H* (0.66-1.25) mg/dL Glucose 118 H (74-99) mg/dL POC Glucose (mg/dL) 138 H (70-110) mg/dL Calcium 8.0 L (8.4-10.2) mg/dL Assessment and Plan Assessment: Hypertensive urgency requiring transfer to ICU on 07/21/2022 and initiated on Cleviprex currently at 2 mg per hour History of hypertension History of end-stage renal disease receiving. Peritoneal dialysis 4 times a day, compliant Coronary disease with previous coronary bypass grafting Diabetes mellitus type 2 History of ESBL. She'll fluid infection Former smoker Peripheral vascular disease with previous history of a right second toe amputation Osteoarthritis Previous COVID-19 infection 2020 Plan: The patient was seen and evaluated Stable and on room air Wean off the Cleviprex as tolerated Continue oral antihypertensive medications Continue peritoneal dialysis We will continue to follow I have personally seen and examined the patient, performed the documentation and the assessment and plan as written. Number of minutes spent on the visit: 10.
[2022-07-23 11:09] LABS: Glucose,Whole Blood 167 mg/dL (70-110)
--- NOTE | 2022-07-23 11:23 | P.PN ---
Subjective Patient is seen for follow-up for end-stage renal disease maintained on peritoneal dialysis He was admitted to the hospital with uncontrolled hypertension. Patient was transferred to ICU because of uncontrolled hypertension and was maintained on Cleviprrex drip. Medications were increased yesterday and currently he is off of cleviprex. Patient has had about 600-700 mL of ultrafiltration with each exchange. Patient patient was reluctant to take lisinopril due to history of cough with it however he did take it this morning., Objective - Vital Signs Vital signs: Vital Signs Temp 97.7 F 07/23/22 07:15 Pulse 61 07/23/22 10:45 Resp 15 07/23/22 10:45 BP 160/66 07/23/22 10:45 Pulse Ox 93 L 07/23/22 10:45 FiO2 Intake & Output 07/22/22 07/23/22 07/23/22 18:59 06:59 18:59 Intake Total 102.767 60.7 30 Output Total 0 0 Balance 102.767 60.7 30 Weight 76.975 kg Intake: IV 55 5 30 .9NS 55 5 30 Intake, IV Titration 47.767 55.7 Amount Clevidipine Butyrate 25 47.767 55.7 mg In Empty Bag 1 bag @ 1 MG/HR 2 mls/hr IV .Q24H [facility] Rx#:[id number] Output: Urine 0 0 Other: Voiding Method Toilet Toilet # Voids 0 # Bowel Movements 1 - Exam Patient is awake, comfortable, not in any acute distress Examination of the heart S1 and S2 Examination of the lungs bilateral breath sounds are heard Abdomen is soft nontender Examination of the lower extremities shows edema 1+ bilaterally [employer] exam grossly intact - Labs CBC & Chem 7: 07/23/22 05:49 07/23/22 05:49 Labs: Abnormal Lab Results - Last 24 Hours (Table) 07/22/22 07/22/22 07/22/22 Range/Units 13:36 16:38 19:54 RBC (4.30-5.90) m/uL Hgb (13.0-17.5) gm/dL Hct (39.0-53.0) % Sodium (137-145) mmol/L Chloride (98-107) mmol/L BUN (9-20) mg/dL Creatinine (0.66-1.25) mg/dL Glucose (74-99) mg/dL POC Glucose (mg/dL) 246 H 130 H 206 H (70-110) mg/dL Calcium (8.4-10.2) mg/dL 07/22/22 07/23/22 07/23/22 Range/Units 21:44 01:27 05:49 RBC 2.93 L (4.30-5.90) m/uL Hgb 9.5 L D (13.0-17.5) gm/dL Hct 27.3 L (39.0-53.0) % Sodium (137-145) mmol/L Chloride (98-107) mmol/L BUN (9-20) mg/dL Creatinine (0.66-1.25) mg/dL Glucose (74-99) mg/dL POC Glucose (mg/dL) 163 H 152 H (70-110) mg/dL Calcium (8.4-10.2) mg/dL 07/23/22 07/23/22 07/23/22 Range/Units 05:49 06:24 11:07 RBC (4.30-5.90) m/uL Hgb (13.0-17.5) gm/dL Hct (39.0-53.0) % Sodium 122 L (137-145) mmol/L Chloride 86 L (98-107) mmol/L BUN 51 H (9-20) mg/dL Creatinine 7.68 H* (0.66-1.25) mg/dL Glucose 118 H (74-99) mg/dL POC Glucose (mg/dL) 138 H 167 H (70-110) mg/dL Calcium 8.0 L (8.4-10.2) mg/dL Assessment and Plan Assessment: 1. End-stage renal disease maintained on peritoneal dialysis 2. Hyponatremia currently hypervolemic expect some improvement with dialysis. Status post 1 dose of Samsca. Sodium staying at 122 -123. Continue to hold sodium chloride due to uncontrolled hypertension 3. Uncontrolled hypertension partly volume sensitive, expect improvement with ultrafiltration with dialysis. Home blood pressure meds have been increased. Add angiotensin receptor blockers as patient complains of cough with previous use of lisinopril. 4. CK D mineral bone disorder 5. Anemia of chronic disease 6. Coronary artery disease status post coronary artery bypass surgery Plan: Add losartan and increased dose later today if blood pressure remains elevated Continue current PD exchanges Repeat labs in a.m. Continue with phosphate binders
[2022-07-23] MEDS: DIALYSIS (PERIT 1.5%) 2,000 ML 30 G/2,000 ML BAG INTRAPERIT SCH (12:25)
[2022-07-23 16:22] LABS: Glucose,Whole Blood 165 mg/dL (70-110)
--- NOTE | 2022-07-23 16:28 | P.PN ---
Subjective Progress Note Date: 07/23/22 H&P Date: 07/20/22 Chief Complaint: hypertension This is a 77 year old male well-known to our practice. You've been seeing Dr. Jara for the past nine months. He has a history of end-stage renal failure and is on perineal dialysis. He has been having elevated blood pressures and difficulty controlling them. He's not had anChest pains, pressures, or shortness of breath. He denies any nausea vomiting or other symptoms. blood pressures remain elevated. He were nearly takes hydralazine, carvedilol, and Catapres. 07/21/[address] Mrs. LOPEZ with uncontrollable blood pressure, initiated on Cleviprex drip. Currently off of cleviprex drip, hydralazine increased. Staff reports with peritoneal dialysis extra 1000 taken off, for a total of 3 L. Telemetry sinus rhythm, systolic blood pressures currently in the 150s. Afebrile, normal WBC, maintaining O2 sats in the 90s on room air. Hemoglobin 10.5, platelets 168, sodium increased to 123, bicarb 25, BUN 51.7, creatinine 7.9. 07/22/2022 patient required Cleviprex drip on and off throughout the night. Received additional hydralazine with dose further or increased. Dialysate further adjusted as per nephrology. Hyperglycemic. 07/23/2022 continues requiring Cleviprex, losartan added to antihypertensives.( Reports uncontrolled coughing on lisinopril). Continues on peritoneal dialysis with ultrafiltration as per nephrology. Sodium 122. Objective - Vital Signs Vital signs: Vital Signs Temp 98.1 F 07/23/22 14:00 Pulse 57 L 07/23/22 14:00 Resp 14 07/23/22 14:00 BP 124/69 07/23/22 14:00 Pulse Ox 97 07/23/22 14:00 FiO2 Intake & Output 07/22/22 07/23/22 07/23/22 18:59 06:59 18:59 Intake Total 102.767 60.7 30 Output Total 0 0 Balance 102.767 60.7 30 Weight 76.975 kg Intake: IV 55 5 30 .9NS 55 5 30 Intake, IV Titration 47.767 55.7 Amount Clevidipine Butyrate 25 47.767 55.7 mg In Empty Bag 1 bag @ 1 MG/HR 2 mls/hr IV .Q24H [facility] Rx#:[id number] Output: Urine 0 0 Other: Voiding Method Toilet Toilet # Voids 0 # Bowel Movements 1 - Exam PHYSICAL EXAM: VITAL SIGNS: [As above] GENERAL: Sitting up in bed, no acute distress. HEENT: Conjunctivae normal. eyes normal. MMM. NECK: Supple, No JVD. CARDIOVASCULAR: S1, S2 regular. No murmur. RESPIRATION: Unlabored, Breath sounds diminished in the bases. No rhonchi or crackles. ABDOMEN: Soft, nontender . No guarding. no masses palpable. Bowel sounds heard. Peritoneal dialysis catheter present. LEGS: Positive edema. No clubbing, no cyanosis PSYCHIATRY: Alert and oriented X3, mood and affect normal. NERVOUS SYSTEM: Cranial N 2-12 grossly normal. No focal deficits. Strength and sensation grossly intact. Skin: Warm and dry, no rash - Labs CBC & Chem 7: 07/23/22 05:49 07/23/22 05:49 Labs: Abnormal Lab Results - Last 24 Hours (Table) 07/22/22 07/22/22 07/22/22 Range/Units 16:38 19:54 21:44 RBC (4.30-5.90) m/uL Hgb (13.0-17.5) gm/dL Hct (39.0-53.0) % Sodium (137-145) mmol/L Chloride (98-107) mmol/L BUN (9-20) mg/dL Creatinine (0.66-1.25) mg/dL Glucose (74-99) mg/dL POC Glucose (mg/dL) 130 H 206 H 163 H (70-110) mg/dL Calcium (8.4-10.2) mg/dL 07/23/22 07/23/22 07/23/22 Range/Units 01:27 05:49 05:49 RBC 2.93 L (4.30-5.90) m/uL Hgb 9.5 L D (13.0-17.5) gm/dL Hct 27.3 L (39.0-53.0) % Sodium 122 L (137-145) mmol/L Chloride 86 L (98-107) mmol/L BUN 51 H (9-20) mg/dL Creatinine 7.68 H* (0.66-1.25) mg/dL Glucose 118 H (74-99) mg/dL POC Glucose (mg/dL) 152 H (70-110) mg/dL Calcium 8.0 L (8.4-10.2) mg/dL 07/23/22 07/23/22 07/23/22 Range/Units 06:24 11:07 16:20 RBC (4.30-5.90) m/uL Hgb (13.0-17.5) gm/dL Hct (39.0-53.0) % Sodium (137-145) mmol/L Chloride (98-107) mmol/L BUN (9-20) mg/dL Creatinine (0.66-1.25) mg/dL Glucose (74-99) mg/dL POC Glucose (mg/dL) 138 H 167 H 165 H (70-110) mg/dL Calcium (8.4-10.2) mg/dL Assessment and Plan Assessment: (1) Hypertensive urgency, requiring Cleviprex drip Current Visit: Yes Status: Acute Code(s): I16.0 - HYPERTENSIVE URGENCY SNOMED Code(s): 728365746 (2) Hyponatremia Current Visit: Yes Status: Acute Code(s): E87.1 - HYPO-OSMOLALITY AND HYPONATREMIA SNOMED Code(s): 02718159 (3) Abdominal pain Current Visit: No Status: Acute Code(s): R10.9 - UNSPECIFIED ABDOMINAL PAIN SNOMED Code(s): 73084401 (4) ESRD on peritoneal dialysis Current Visit: No Status: Acute Code(s): N18.6 - END STAGE RENAL DISEASE; Z99.2 - DEPENDENCE ON RENAL DIALYSIS SNOMED Code(s): 849445845 (5) CAD (coronary artery disease) Current Visit: Yes Status: Acute Code(s): I25.10 - ATHSCL HEART DISEASE OF [place] CORONARY ARTERY W/O ANG PCTRS SNOMED Code(s): 55165845 (6) H/O four vessel coronary artery bypass graft Current Visit: Yes Status: Acute Code(s): Z95.1 - PRESENCE OF AORTOCORONARY BYPASS GRAFT SNOMED Code(s): 535803800 (7) Previous covid-19 infection, 2020 Plan: Continue on current medication regime ,monitoring and symptomatic treatment. Oral antihypertensives further adjusted; titration of cleviprex drip in progress. Peritoneal dialysis/ultrafiltration as per nephrology. The impression and plan of care has been dictated as directed. : I performed a history and examination of this patient, discussed the same with the dictator. I agree with the dictator's note ,documented as a scribe. Any additional findings or plans will be noted.
[2022-07-23 21:04] LABS: Glucose,Whole Blood 203 mg/dL (70-110)
[2022-07-24] MEDS: DIALYSIS (PERIT 1.5%) 2,000 ML 30 G/2,000 ML BAG INTRAPERIT SCH ×2 (00:20→12:57)
[2022-07-24 00:34] VITALS: RESP 18
[2022-07-24] MEDS: DIALYSIS (PERIT 2.5%) 2,000 ML 50 G/2,000 ML BAG INTRAPERIT SCH (05:10)
[2022-07-24 06:24] LABS: Glucose,Whole Blood 219 mg/dL (70-110)
[2022-07-24] MEDS: CALCIUM ACETATE 667 MG TAB PO SCH ×3 (06:30→12:59)
[2022-07-24] MEDS: PANTOPRAZOLE 40 MG TABLET PO SCH (06:30)
[2022-07-24] MEDS: carvediloL 12.5 MG TAB PO SCH (06:31)
[2022-07-24] MEDS: INSULIN DETEMIR (LEVEMIR) 100 UNIT/ML SYR SQ SCH (06:31)
[2022-07-24] MEDS: INSULIN ASPART (NovoLOG) 100 UNIT/ML VIAL SQ SCH ×2 (06:31→12:12)
[2022-07-24 07:45] LABS: Calcium 7.6 mg/dL (8.4-10.2)
[2022-07-24] MEDS ORDERED: SODIUM CHLORIDE TAB 1 GM TAB PO STA (09:10)
[2022-07-24] MEDS: cloNIDine HCL 0.2 MG TAB PO SCH ×2 (09:29→15:04)
[2022-07-24] MEDS: CHOLECALCIFEROL 25 MCG (1000 IU) TABLET PO SCH (09:29)
[2022-07-24] MEDS: hydrALAZINE HCL 50 MG TAB PO SCH ×2 (09:29→15:04)
[2022-07-24] MEDS: amLODIPine 10 MG TAB PO SCH (09:29)
[2022-07-24] MEDS: lisinopriL 10 MG TAB PO SCH (09:29)
--- NOTE | 2022-07-24 11:34 | P.PN ---
Subjective Patient is seen for follow-up for end-stage renal disease maintained on peritoneal dialysis He was admitted to the hospital with uncontrolled hypertension. Patient was transferred to ICU because of uncontrolled hypertension and was maintained on Cleviprrex drip. Medications were increased yesterday and currently he is off of cleviprex. Patient has had about 600-700 mL of ultrafiltration with each exchange. Patient patient was reluctant to take lisinopril due to history of cough with it however he did take it for last couple of days. Blood pressure improved with improved volume status. However serum sodium still remains low at 120. Objective - Vital Signs Vital signs: Vital Signs Temp 97.5 F L 07/24/22 08:46 Pulse 58 L 07/24/22 08:46 Resp 18 07/24/22 05:11 BP 134/67 07/24/22 08:46 Pulse Ox 96 07/24/22 08:46 FiO2 Intake & Output 07/23/22 07/24/22 07/24/22 18:59 06:59 18:59 Intake Total 30 Output Total 0 Balance 30 Weight 73.3 kg Intake: IV 30 .9NS 30 Output: Urine 0 Other: Voiding Method Toilet Toilet # Bowel Movements 1 - Exam Patient is awake, comfortable, not in any acute distress Examination of the heart S1 and S2 Examination of the lungs bilateral breath sounds are heard Abdomen is soft nontender Examination of the lower extremities shows edema 1+ bilaterally [employer] exam grossly intact - Labs CBC & Chem 7: 07/23/22 05:49 07/24/22 06:48 Labs: Abnormal Lab Results - Last 24 Hours (Table) 07/23/22 07/23/22 07/24/22 Range/Units 16:20 21:02 06:23 Sodium (137-145) mmol/L Chloride (98-107) mmol/L BUN (9-20) mg/dL Creatinine (0.66-1.25) mg/dL Glucose (74-99) mg/dL POC Glucose (mg/dL) 165 H 203 H 219 H (70-110) mg/dL Calcium (8.4-10.2) mg/dL 07/24/22 Range/Units 06:48 Sodium 120 L (137-145) mmol/L Chloride 85 L (98-107) mmol/L BUN 53 H (9-20) mg/dL Creatinine 7.36 H* (0.66-1.25) mg/dL Glucose 194 H (74-99) mg/dL POC Glucose (mg/dL) (70-110) mg/dL Calcium 7.6 L (8.4-10.2) mg/dL Assessment and Plan Assessment: 1. End-stage renal disease maintained on peritoneal dialysis 2. Hyponatremia currently hypervolemic expect some improvement with dialysis. Status post 1 dose of Samsca. Sodium staying at 122 -123. Take sodium chloride tabs on and off as outpatient, currently on hold due to elevated blood pressures. 3. Uncontrolled hypertension partly volume sensitive, expect improvement with u ltrafiltration with dialysis. Home blood pressure meds have been increased. Add angiotensin receptor blockers as patient complains of cough with previous use of lisinopril. 4. CK D mineral bone disorder 5. Anemia of chronic disease 6. Coronary artery disease status post coronary artery bypass surgery Plan: Switch lisinopril to losartan and increased dose later today if blood pressure remains elevated Continue current PD exchanges Repeat labs in a.m. Continue with phosphate binders
[2022-07-24 11:47] VITALS: BP 143/55; PULSE 61; TEMP 98.4
[2022-07-24 11:56] LABS: Glucose,Whole Blood 126 mg/dL (70-110)
--- NOTE | 2022-07-24 13:05 | P.PN ---
Subjective Progress Note Date: 07/24/22 This is a pleasant 77-year-old male patient who follows with Dr. Jara is his primary care provider. He has history of coronary artery disease with previous coronary artery bypass grafting, diabetes mellitus, chronic renal failure on peritoneal dialysis, hypertension, former smoker. He presented here to the emergency room 07/19/2022 with concerns regarding his high blood pressure. He stated it was 220/100 most of the day. He took an extra clonidine without much change. He presented to the ER for the same. He was originally admitted to the regular medical floor however his blood pressure continued to be significantly elevated and he was transferred to the ICU early this morning. He was initiated on a clot proximal drip currently at 4 mg per hour. He is awake and alert in no acute distress. Maintaining good O2 saturations in the 90s on room air. No IV fluids currently. He remains on Coreg, Catapres, a presently. Current blood pressure 141/75 with a mean of 97. White count 5.7. Hemoglobin 10.5. Platelet count 168. Sodium 121. Potassium 4.4. Chloride 86. Bicarb 25. BUN 53. Creatinine 7.66. Glucose 140. The patient is seen today 07/22/2022 in follow-up in the intensive care unit. He is currently sitting up in bed. Awake and alert in no acute distress. Maintaining good O2 saturations in the 90s on room air. Normal saline at KVO. Cleviprex at 2 mg per hour. Also on carvedilol, ,hydralazine. Remains somewhat hypertensive. White count 7.0. Hemoglobin 11.3. Sodium 123. Potassium 4.4. Chloride 86. Bicarb 27. BUN 55. Creatinine 8.02. Glucose 207. Continues with peritoneal dialysis. Nephrology is on the case. The patient is seen today 07/23/2022 in follow-up in the intensive care unit. He is awake and alert in no acute distress. Sitting up in bed. HEENT hearing good O2 saturations in the 90s on room air. He remains on a Cleviprex drip at 2 mg per hour. 0.9 normal saline at KVO. White count 10.0. Hemoglobin 9.5. Sodium 122. Potassium 4.0. BUN 51. Creatinine 7.68. Glucose 118. He is continued on amlodipine, carvedilol, clonidine,apresoline, Zestril. Continued on peritoneal dialysis. The patient is seen today 07/24/2022 in follow-up on the regular medical floor. He is resting comfortably in bed. Awake and alert in no acute distress. Maintain good O2 saturations in the mid 90s on room air. He's afebrile. Hemodynamically stable. Blood pressure under better control. Sodium 120. Potassium 4.0. BUN 53. Creatinine 7.36. Glucose 194. Continues with peritoneal dialysis. Objective - Vital Signs Vital signs: Vital Signs Temp 98.4 F 07/24/22 11:46 Pulse 61 07/24/22 11:46 Resp 18 07/24/22 11:46 BP 143/55 07/24/22 11:46 Pulse Ox 95 07/24/22 11:46 FiO2 Intake & Output 07/23/22 07/24/22 07/24/22 18:59 06:59 18:59 Intake Total 30 Output Total 0 Balance 30 Weight 73.3 kg Intake: IV 30 .9NS 30 Output: Urine 0 Other: Voiding Method Toilet Toilet # Bowel Movements 1 - Exam GENERAL EXAM: Alert, 77-year-old male, on room air, comfortable in no apparent distress. HEAD: Normocephalic. EYES: Normal reaction of pupils, equal size. NOSE: Clear with pink turbinates. THROAT: No erythema or exudates. NECK: No masses, no JVD. CHEST: No chest wall deformity. LUNGS: Equal air entry with no crackles, wheeze, rhonchi or dullness. CVS: S1 and S2 normal with no audible murmur, regular rhythm. ABDOMEN: Peritoneal dialysis catheter site clean and dry. No hepatosplenomegaly, normal bowel sounds, no guarding or rigidity. SPINE: No scoliosis or deformity SKIN: No rashes CENTRAL NERVOUS SYSTEM: No focal deficits, tone is normal in all 4 extremities. EXTREMITIES: There is no peripheral edema. No clubbing, no cyanosis. Per ipheral pulses are intact. - Labs CBC & Chem 7: 07/23/22 05:49 07/24/22 06:48 Labs: Abnormal Lab Results - Last 24 Hours (Table) 07/23/22 07/23/22 07/24/22 Range/Units 16:20 21:02 06:23 Sodium (137-145) mmol/L Chloride (98-107) mmol/L BUN (9-20) mg/dL Creatinine (0.66-1.25) mg/dL Glucose (74-99) mg/dL POC Glucose (mg/dL) 165 H 203 H 219 H (70-110) mg/dL Calcium (8.4-10.2) mg/dL 07/24/22 07/24/22 Range/Units 06:48 11:53 Sodium 120 L (137-145) mmol/L Chloride 85 L (98-107) mmol/L BUN 53 H (9-20) mg/dL Creatinine 7.36 H* (0.66-1.25) mg/dL Glucose 194 H (74-99) mg/dL POC Glucose (mg/dL) 126 H (70-110) mg/dL Calcium 7.6 L (8.4-10.2) mg/dL Assessment and Plan Assessment: Hypertensive urgency requiring transfer to ICU on 07/21/2022, recovered and on the regular medical floor History of hypertension History of end-stage renal disease receiving. Peritoneal dialysis 4 times a day, compliant Coronary disease with previous coronary bypass grafting Diabetes mellitus type 2 History of ESBL. She'll fluid infection Former smoker Peripheral vascular disease with previous history of a right second toe amputation Osteoarthritis Previous COVID-19 infection 2020 Plan: The patient was seen and evaluated Stable and on room air Continue antihypertensive medications Continue peritoneal dialysis Home once cleared by medicine I have personally seen and examined the patient, performed the documentation and the assessment and plan as written. Number of minutes spent on the visit: 10.
[2022-07-25] MEDS ORDERED: LOSARTAN 50 MG TAB PO SCH (09:00)
== END 2022-07-24 15:18 | disposition home or self-care (01) | DRG 682 ==
LOC: EC 16:39 → 4SSUR 07-20 00:14 → 2SICU 07-21 06:06 → 3SCARD 07-23 23:17
PROVIDERS: ADMIT Family Medicine; ATTEND Family Medicine
PROC: 3E1M39Z Irrigation of Peritoneal Cavity using Dialysate, Percutaneous Approach (ICD-10-PCS; principal; 2022-07-20)
DX: I12.0 Hypertensive chronic kidney disease with stage 5 chronic kidney disease or end stage renal disease (principal); N18.6 End stage renal disease; E87.1 Hypo-osmolality and hyponatremia; I16.0 Hypertensive urgency; I25.10 Atherosclerotic heart disease of native coronary artery without angina pectoris; R00.1 Bradycardia, unspecified; E11.22 Type 2 diabetes mellitus with diabetic chronic kidney disease; E11.65 Type 2 diabetes mellitus with hyperglycemia; D63.1 Anemia in chronic kidney disease; E11.51 Type 2 diabetes mellitus with diabetic peripheral angiopathy without gangrene; E11.649 Type 2 diabetes mellitus with hypoglycemia without coma; I35.0 Nonrheumatic aortic (valve) stenosis; T50.3X6A Underdosing of electrolytic, caloric and water-balance agents, initial encounter; Z91.14 Patient's other noncompliance with medication regimen; R10.9 Unspecified abdominal pain; E87.70 Fluid overload, unspecified; M89.9 Disorder of bone, unspecified; M19.90 Unspecified osteoarthritis, unspecified site; Z96.642 Presence of left artificial hip joint; Z99.2 Dependence on renal dialysis; Z28.310 Unvaccinated for COVID-19; Z91.040 Latex allergy status; Z88.5 Allergy status to narcotic agent; Z87.891 Personal history of nicotine dependence; Z98.42 Cataract extraction status, left eye; Z98.41 Cataract extraction status, right eye; Z96.1 Presence of intraocular lens; Z95.1 Presence of aortocoronary bypass graft; Z86.16 Personal history of COVID-19; Z79.899 Other long term (current) drug therapy; Z79.4 Long term (current) use of insulin; Z86.19 Personal history of other infectious and parasitic diseases; Z89.421 Acquired absence of other right toe(s)
CPT/HCPCS: 36415; 80048; 80053; 83036; 83735; 84295; 84484; 85025; 85610; 85730; 93005; 96365; 96375; 96376; 99285

== ENCOUNTER 2023-02-10 18:48 | Emergency (ER) | payer MEDICARE ==
[2023-02-10 19:11] VITALS: TEMP 97.4
[2023-02-10] MEDS ORDERED: ONDANSETRON 4 MG/2 ML VIAL IVP STA (19:17)
[2023-02-10] MEDS ORDERED: SODIUM CHLORIDE 0.9% 500 ML 500 ML IV STA (19:17)
[2023-02-10] MEDS ORDERED: PANTOPRAZOLE 40 MG/10 ML VIAL IVP STA (19:17)
[2023-02-10] MEDS ORDERED: HYDROmorphone 1 MG/ML 1 ML SYRINGE IVP STA (19:50)
[2023-02-10] MEDS ORDERED: hydrALAZINE HCL 20 MG/ML 1 ML VIAL IVP STA ×2 (19:50→23:09)
--- NOTE | 2023-02-10 19:55 | ED ---
Abdominal Pain HPI - General Chief Complaint: Abdominal Pain Stated Complaint: feels like he's going to pass out Time Seen by Provider: 02/10/23 19:17 Source: patient, family, RN notes reviewed, old records reviewed Mode of arrival: wheelchair Limitations: no limitations - History of Present Illness Initial Comments: This is a 77-year-old male to the emergency department for evaluation. Patient presents today for evaluation abdominal pain, does do at home. No dialysis with recent nausea and diarrhea no fevers no travel history no sick contacts. P atient has no significant surgical history. No recent sick contacts MD Complaint: abdominal pain -: hour(s) Location: diffuse Radiation: none Migration to: no migration Severity: moderate Severity scale (1-10): 3 Quality: cramping Consistency: constant Improves With: nothing Worsens With: nothing Associated Symptoms: nausea, vomiting - Related Data Home Medications Medication Instructions Recorded Confirmed Calcium Acetate [PhosLo] 1,334 mg PO TID-W/MEALS 09/02/21 02/10/23 Calcium Acetate [PhosLo] 667 mg PO BID PRN 03/09/22 02/10/23 Insulin Glargine [Lantus Vial] 6 unit SQ DAILY@1200 07/28/22 02/10/23 amLODIPine [Norvasc] 10 mg PO DAILY 07/28/22 02/10/23 carvediloL [Coreg] 25 mg PO BID 07/28/22 02/10/23 Sodium Chloride Tab 500 mg PO Q48H 02/10/23 02/10/23 hydrALAZINE HCL [Apresoline] 50 mg PO TID PRN 02/10/23 02/10/23 Allergies Allergy/AdvReac Type Severity Reaction Status Date / Time citric acid Allergy Rash/Hives Verified 02/10/23 21:53 latex Allergy Swelling, Verified 02/10/23 21:53 SKIN TURNED RED,BURNING, ITCHING losartan Allergy Cough Verified 02/10/23 21:53 hydrocodone [From [place]] AdvReac Hallucinati Verified 02/10/23 21:53 ons Review of Systems ROS Statement: Those systems with pertinent positive or pertinent negative responses have been documented in the HPI. ROS Other: All systems not noted in ROS Statement are negative. 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 Absent: scleral icterus, conjunctival injection, periorbital swelling ENT exam: Present: normal exam, mucous membranes moist Neck exam: Present: normal inspection. Absent: tenderness, meningismus, lymphadenopathy Respiratory exam: Present: normal lung sounds bilaterally. Absent: respiratory distress, wheezes, rales, rhonchi, stridor Cardiovascular Exam: Present: normal rhythm, tachycardia, normal heart sounds. Absent: systolic murmur, diastolic murmur, rubs, gallop, clicks GI/Abdominal exam: Present: soft, normal bowel sounds. Absent: distended, tenderness, guarding, rebound, rigid Extremities exam: Present: normal inspection, full ROM, normal capillary refill. Absent: tenderness, pedal edema, joint swelling, calf tenderness Back exam: Present: normal inspection Neurological exam: Present: alert, oriented X3, CN II-XII intact Psychiatric exam: Present: normal affect, normal mood Skin exam: Present: warm, dry, intact, normal color. Absent: rash Course Vital Signs 02/10/23 02/10/23 02/10/23 19:09 20:04 20:50 Temperature 97.4 F L Pulse Rate 66 75 73 Respiratory 20 22 20 Rate Blood Pressure 191/90 215/98 169/84 O2 Sat by Pulse 99 97 96 Oximetry - Reevaluation(s) Reevaluation #1: 02/10/23 22:41 Medical records reviewed Reevaluation #2: 02/10/23 22:41 patient informed results questions answered Reevaluation #3: 02/10/23 22:41 Patient symptoms are improved Reevaluation #4: 02/10/23 22:42 Was pt. sent in by a medical professional or institution? @ -no Did you speak to anyone other than the patient for history? @ - at bedside who believes patient has peritoneal infection Did you review nursing and triage notes? @ -agree Were old charts reviewed? @ -yes prior admissions, prior CT scan Differential Diagnosis? @ -chest pain, arrhythmia EKG interpreted by me (3pts min.)? @ -yes X-rays interpreted by me (1pt min.)? @ -no CT interpreted by me (1pt min.)? @ -no U/S interpreted by me (1pt. min.)? @ -no What testing was considered but not performed? (CT, X-rays, U/S, labs)? Why? @ -no What meds were considered but not given? Why? @ -no Did you discuss the management of the patient with other professionals? @ -no Did you reconcile home meds? @ -no Was smoking cessation discussed for >3mins.? @ -no Was critical care preformed (if so, how long)? @ -no Were there social determinants of health that impacted care today? How? (Homelessness, low income, unemployed, alcoholism, drug addiction, transp ortation, low edu. Level, literacy, decrease access to med. care, fdc, rehab)? @ -no Was there de-escalation of care discussed even if they declined? (Discuss DNR or withdrawal of care, Hospice)? @ -no What co-morbidities impacted this encounter? (DM, HTN, Smoking, COPD, CAD, Cancer, CVA, Hep., AIDS, mental health diagnosis, sleep apnea, morbid obesity)? @ -no Was patient admitted / discharged? @ -dc Undiagnosed new problem with uncertain prognosis? @ -no Drug Therapy requiring intensive monitoring for toxicity (Heparin, Nitro, Insulin, Cardizem)? @ -no Were any procedures done? @ -no Diagnosis/symptom? @ -abdominal pain Acute, or Chronic, or Acute on Chronic? @ -acute Uncomplicated (without systemic symptoms) or Complicated (systemic symptoms)? @ -uncomplicated Side effects of treatment? @ -no Exacerbation, Progression, or Severe Exacerbation] @ -no Poses a threat to life or bodily function? @ -no Reevaluation #5: 02/10/23 22:41 MDifferential Abdominal Pain Men: Appendicitis, cholecystitis, diverticulosis, ischemic bowel, pancreatitis, hepatitis, UTI, gastroenteritis, AAA, incarcerated hernia, bowel obstruction, constipation, inflammatory bowel, hepatitis, peptic ulcer disease, splenic infarction, perforated viscus, testicular torsion, this is not meant to be an all-inclusive list Medical Decision Making - Medical Decision Making 77 male DF for evaluation of abdominal pain diarrhea nausea, he does home Dialysis without cloudy without cloudy diastole, clean, no fevers, patient presents to abdominal pain today with normal computed tomography scan normal elevation symptoms improved. Patient can be discharged home - Lab Data Result diagrams: 02/10/23 19:50 02/10/23 19:50 Lab Results 02/10/23 02/10/23 Range/Units 19:50 19:50 WBC 8.6 (3.8-10.6) k/uL RBC 4.36 (4.30-5.90) m/uL Hgb 13.5 (13.0-17.5) gm/dL Hct 39.0 (39.0-53.0) % MCV 89.4 (80.0-100.0) fL MCH 30.8 (25.0-35.0) pg MCHC 34.5 (31.0-37.0) g/dL RDW 12.7 (11.5-15.5) % Plt Count 143 L (150-450) k/uL MPV 7.7 Neutrophils % 61 % Lymphocytes % 9 % Monocytes % 4 % Eosinophils % 25 % Basophils % 0 % Neutrophils # 5.2 (1.3-7.7) k/uL Lymphocytes # 0.8 L (1.0-4.8) k/uL Monocytes # 0.3 (0-1.0) k/uL Eosinophils # 2.1 H (0-0.7) k/uL Basophils # 0.0 (0-0.2) k/uL Sodium 134 L (137-145) mmol/L Potassium 4.0 (3.5-5.1) mmol/L Chloride 95 L (98-107) mmol/L Carbon Dioxide 23 (22-30) mmol/L Anion Gap 16 mmol/L BUN 84 H (9-20) mg/dL Creatinine 10.16 H* (0.66-1.25) mg/dL Est GFR (CKD-EPI)AfAm 5 (>60 ml/min/1.73 sqM) Est GFR (CKD-EPI)NonAf 4 (>60 ml/min/1.73 sqM) Glucose 202 H (74-99) mg/dL Calcium 8.9 (8.4-10.2) mg/dL Phosphorus 5.8 H (2.5-4.5) mg/dL Magnesium 3.0 H (1.6-2.3) mg/dL Total Bilirubin 0.5 (0.2-1.3) mg/dL AST 35 (17-59) U/L ALT 29 (4-49) U/L Alkaline Phosphatase 55 (38-126) U/L C-Reactive Protein <0.5 (<1.0) mg/dL Total Protein 6.5 (6.3-8.2) g/dL Albumin 3.9 (3.5-5.0) g/dL Amylase 58 (30-110) U/L Lipase 123 (23-300) U/L - Radiology Data Radiology results: report reviewed (CT abdomen and pelvis is negative for acute disease), image reviewed Disposition Clinical Impression: Weakness, Abdominal pain, Nausea & vomiting Disposition: HOME SELF-CARE Condition: Fair Is patient prescribed a controlled substance at d/c from ED?: No Referrals: Jerry Jara Jr, DO [Primary Care Provider] - 1-2 days Time of Disposition: 22:40
[2023-02-10 20:26] LABS: Basophils % (A) 0 %; Eosinophils # (A) 2.1 k/uL (0-0.7); Eosinophils % (A) 25 %; HGB 13.5 gm/dL (13.0-17.5); Lymphocytes # (A) 0.8 k/uL (1.0-4.8); Lymphocytes % (A) 9 %; MCH 30.8 pg (25.0-35.0); MCHC 34.5 g/dL (31.0-37.0); MCV 89.4 fL (80.0-100.0); Mean Platelet Volume 7.7; Monocytes # (A) 0.3 k/uL (0-1.0); Monocytes % (A) 4 %; Neutrophils # (A) 5.2 k/uL (1.3-7.7); Neutrophils % (A) 61 %; Platelet Count 143 k/uL (150-450); RBC 4.36 m/uL (4.30-5.90); RDW 12.7 % (11.5-15.5); WBC 8.6 k/uL (3.8-10.6)
[2023-02-10 20:39] LABS: AST 35 U/L (17-59); African American GFR (CKD) 5 (>60 ml/min/1.73 sqM); Albumin 3.9 g/dL (3.5-5.0); Alkaline Phosphatase 55 U/L (38-126); Amylase 58 U/L (30-110); Anion Gap 16 mmol/L; Blood Urea Nitrogen 84 mg/dL (9-20); Calcium 8.9 mg/dL (8.4-10.2); Carbon Dioxide 23 mmol/L (22-30); Chloride 95 mmol/L (98-107); Glucose 202 mg/dL (74-99); Lipase 123 U/L (23-300); Non-African American GFR(CKD) 4 (>60 ml/min/1.73 sqM); Phosphorus 5.8 mg/dL (2.5-4.5); Sodium 134 mmol/L (137-145); Total Bilirubin 0.5 mg/dL (0.2-1.3); Total Protein 6.5 g/dL (6.3-8.2)
[2023-02-10 20:44] LABS: ALT 29 U/L (4-49)
[2023-02-10 20:56] LABS: C Reactive Protein <0.5 mg/dL (<1.0)
--- NOTE | 2023-02-10 21:23 | CT ---
EXAMINATION TYPE: CT abdomen pelvis wo con CT DLP: 585.8 mGycm, Automated exposure control for dose reduction was used. DATE OF EXAM: 02/10/2023 9:01 PM COMPARISON: CT abdomen pelvis most recent from 09/03/2021 CLINICAL INDICATION:Male, 77 years old with history of pain; N/V TECHNIQUE: Axial CT of the abdomen and pelvis. Sagittal and coronal reformats were created on a [employer] workstation. Contrast used: None Oral contrast used: without Oral Contrast FINDINGS: LOWER CHEST: Mitral valve annular calcifications. Severe coronary artery calcifications. Calcified gr anulomas noted in the right middle lung. Sternotomy wires are partially visualized. Suspected interst itial changes of lungs similar to prior 2020. ABDOMEN LIVER: Unremarkable GALLBLADDER AND BILE DUCTS: Unremarkable. PANCREAS: Unremarkable. SPLEEN: Unremarkable. ADRENAL GLANDS: Unremarkable. KIDNEYS AND URETERS: Atrophic appearing kidneys. There is a renal calculus located within the right r enal pelvis measuring 9 x 6 mm. PELVIS BLADDER: Unremarkable REPRODUCTIVE: Prostate is enlarged in size measuring 4.9 Cm in transverse dimension. ABDOMEN & PELVIS STOMACH AND BOWEL: No evidence of bowel obstruction. Scattered colonic diverticula are present. PERITONEUM/RETROPERITONEUM: No evidence of pneumoperitoneum there is free fluid throughout the abdome n. Dialysis catheter with distal tip terminates in the pelvis. VASCULATURE: No evidence of aortic aneurysm. Extensive atherosclerosis of the arterial vasculature. MUSCULOSKELETAL: No acute osseous abnormalities, left hip arthroplasty changes hardware appears intac t. Multilevel disc degeneration changes with mild dextroscoliosis apex L4. LYMPH NODES: No gross evidence for lymphadenopathy. SOFT TISSUE/ABDOMINAL WALL: Bilateral fat-containing inguinal hernias. IMPRESSION: 1. No definitive evidence for acute abdominal process. Free fluid throughout the abdomen secondary t o #4 image evaluation for fat stranding. 2. Prostatomegaly correlate with serum PSA. 3. Scattered colonic diverticulosis. 4. Dialysis catheter with tip terminating in the pelvis. There is associated free fluid throughout t he abdomen. 5. Right renal pelvis calculus.
[2023-02-10] MEDS ORDERED: ACET/COD 300 MG/30 MG STARTER PACK 6 TAB BTL PO STA (22:35)
[2023-02-10] MEDS ORDERED: traMADol 50 MG STARTER PACK 3 TAB BTL PO STA (22:35)
[2023-02-10] MEDS ORDERED: HYDROmorphone 0.5 MG/0.5 ML SYRINGE IVP STA (22:36)
[2023-02-10 23:44] VITALS: BP 187/90; PULSE 80; RESP 18
== END 2023-02-10 23:52 | disposition home or self-care (01) ==
LOC: EC 18:48
DX: R10.84 Generalized abdominal pain (principal); R11.2 Nausea with vomiting, unspecified; R53.1 Weakness; E11.9 Type 2 diabetes mellitus without complications; I10 Essential (primary) hypertension; I25.10 Atherosclerotic heart disease of native coronary artery without angina pectoris; Z79.4 Long term (current) use of insulin; Z79.899 Other long term (current) drug therapy; Z87.891 Personal history of nicotine dependence; Z88.5 Allergy status to narcotic agent; Z91.040 Latex allergy status; Z91.048 Other nonmedicinal substance allergy status; Z95.1 Presence of aortocoronary bypass graft
CPT/HCPCS: 36415; 80053; 82150; 83690; 83735; 84100; 85025; 86140; 74176; 99285; 96374; 96375 ×3; 96376 ×2; 96361; J0360; J2405; J1170 ×2; C9113

== ENCOUNTER 2023-05-15 13:20 | Inpatient (IN) | payer MEDICARE ==
[2023-05-15 14:16] LABS: Basophils % (A) 0 %; Eosinophils # (A) 0.8 k/uL (0-0.7); Eosinophils % (A) 14 %; HGB 8.2 gm/dL (13.0-17.5); Hyperchromasia Slight; Lymphocytes # (A) 0.7 k/uL (1.0-4.8); Lymphocytes % (A) 12 %; MCH 32.6 pg (25.0-35.0); MCHC 37.3 g/dL (31.0-37.0); MCV 87.4 fL (80.0-100.0); Mean Platelet Volume 8.3; Monocytes # (A) 0.4 k/uL (0-1.0); Monocytes % (A) 8 %; Neutrophils # (A) 3.5 k/uL (1.3-7.7); Neutrophils % (A) 64 %; Platelet Count 132 k/uL (150-450); RBC 2.52 m/uL (4.30-5.90); RDW 13.1 % (11.5-15.5); WBC 5.5 k/uL (3.8-10.6)
[2023-05-15 14:28] LABS: ALT 23 U/L (4-49); AST 26 U/L (17-59); African American GFR (CKD) 6 (>60 ml/min/1.73 sqM); Albumin 2.6 g/dL (3.5-5.0); Alkaline Phosphatase 47 U/L (38-126); Anion Gap 8 mmol/L; Blood Urea Nitrogen 72 mg/dL (9-20); Calcium 8.6 mg/dL (8.4-10.2); Carbon Dioxide 26 mmol/L (22-30); Chloride 83 mmol/L (98-107); Glucose 169 mg/dL (74-99); Magnesium 2.4 mg/dL (1.6-2.3); Non-African American GFR(CKD) 5 (>60 ml/min/1.73 sqM); Potassium 3.7 mmol/L (3.5-5.1); Total Bilirubin 0.4 mg/dL (0.2-1.3); Total Protein 4.9 g/dL (6.3-8.2)
[2023-05-15 14:35] LABS: Sodium 117 mmol/L (137-145)
[2023-05-15 14:41] LABS: INR 0.9 (<1.2); Prothrombin Time 10.1 sec (9.0-12.0)
--- NOTE | 2023-05-15 14:42 | CT ---
EXAMINATION TYPE: CT brain wo con CT DLP: 1220.4 mGycm, Automated exposure control for dose reduction was used. DATE OF EXAM: 05/15/2023 2:36 PM COMPARISON: None. CLINICAL INDICATION:Male, 78 years old with history of weakness, weakness, confusion. TECHNIQUE: Brain: Multiple axial CT images of the brain were obtained without IV contrast. Coronal and sagittal reformats reviewed. FINDINGS: Brain: Extra-axial spaces: No abnormal extra-axial fluid collections. Ventricular system: Within normal limits Cerebral parenchyma: Mild cerebral volume loss. No acute intraparenchymal hemorrhage or mass effect. The garcia-white junction is well differentiated. Scattered hypoattenuating areas are seen within the white matter. Cerebellum: Unremarkable. Mass effect: No evidence of midline shift. Intracranial vasculature: Atherosclerotic calcifications of the intracranial vessels. Soft tissues: Normal. Calvarium/osseous structures: No depressed skull fracture. Paranasal sinuses and mastoid air cells: Partial opacification of the right mastoid air cells. Mild m ucosal thickening of the right maxillary sinus. Likely mucous retention cyst within the left maxillar y sinus measuring up to 0.8 cm. Visualized orbits: Bilateral aphakia. Scleral calcifications. IMPRESSION: 1. No acute intracranial process. 2. Nonspecific white matter changes, likely secondary to chronic small vessel ischemic disease.
--- NOTE | 2023-05-15 14:43 | XR ---
EXAMINATION TYPE: XR chest 2V DATE OF EXAM: 05/15/2023 2:38 PM COMPARISON: Chest radiographs from 07/28/2022 TECHNIQUE: XR chest 2V Frontal and lateral views of the chest. CLINICAL INDICATION:Male, 78 years old with history of Weakness; FINDINGS: Lungs/Pleura: There is no evidence of pleural effusion, focal consolidation, or pneumothorax. Chroni c senescent parenchymal change. Pulmonary vascularity: Unremarkable. Heart/mediastinum: Cardiomediastinal silhouette is unremarkable. Postoperative changes are present i n the mediastinum. Musculoskeletal: No acute osseous pathology. Midline sternotomy wires are noted and stable. IMPRESSION: No acute cardiopulmonary disease/process.
[2023-05-15] MEDS ORDERED: hydrALAZINE HCL 20 MG/ML 1 ML VIAL IVP STA (14:51)
[2023-05-15 14:56] LABS: Glucose,Whole Blood 171 mg/dL (70-110)
--- NOTE | 2023-05-15 15:18 | ED ---
General Adult HPI - General Chief complaint: Weakness Stated complaint: Abnormal Lab, Vomiting Time Seen by Provider: 05/15/23 13:53 Source: patient, family Mode of arrival: wheelchair - History of Present Illness Initial comments: 78-year-old male presenting to the ED with a chief complaint of fatigue. Of note, was treated for anemia due to a hemoglobin of 7.9 and was provided a transfusion a week ago. Despite this, states that continues to be fatigued and dizzy. Notes was dealing with this prior and had diarrhea however as of now diarrhea has resolved. Patient describes dizziness as feeling like he is both going to pass out and fall over. Additionally, states that she noticed some speech slurring however is unknown for how long this has been going on for. States that the patient is otherwise acting himself. No chest pain or shortness of breath. No other complaints. - Related Data Home Medications Medication Instructions Recorded Confirmed Calcium Acetate [PhosLo] 1,334 mg PO TID-W/MEALS 09/02/21 02/10/23 Calcium Acetate [PhosLo] 667 mg PO BID PRN 03/09/22 02/10/23 Insulin Glargine [Lantus Vial] 6 unit SQ DAILY@1200 07/28/22 02/10/23 amLODIPine [Norvasc] 10 mg PO DAILY 07/28/22 02/10/23 carvediloL [Coreg] 25 mg PO BID 07/28/22 02/10/23 Sodium Chloride Tab 500 mg PO Q48H 02/10/23 02/10/23 hydrALAZINE HCL [Apresoline] 50 mg PO TID PRN 02/10/23 02/10/23 Allergies Allergy/AdvReac Type Severity Reaction Status Date / Time citric acid Allergy Rash/Hives Verified 05/15/23 13:27 latex Allergy Swelling, Verified 05/15/23 13:27 SKIN TURNED RED,BURNING, ITCHING losartan Allergy Cough Verified 05/15/23 13:27 hydrocodone [From [place]] AdvReac Hallucinati Verified 05/15/23 13:27 ons Review of Systems ROS Statement: Those systems with pertinent positive or pertinent negative responses have been documented in the HPI. ROS Other: All systems not noted in ROS Statement are negative. 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, LEFT TOTAL HIP, BILATERAL CATARACT SURGERY WITH LENS IMPLANT Past Anesthesia/Blood Transfusion Reactions: No Reported Reaction Past Psychological History: No Psychological Hx Reported Smoking Status: Former smoker Past Alcohol Use History: None Reported Past Drug Use History: None Reported - Past Family History Mother Family Medical History: Cancer Father History Unknown: Yes General Exam Limitations: no limitations General appearance: alert, in no apparent distress Respiratory exam: Present: normal lung sounds bilaterally Cardiovascular Exam: Present: regular rate, normal rhythm GI/Abdominal exam: Present: soft Neurological exam: Present: alert, oriented X3, CN II-XII intact Psychiatric exam: Present: normal affect, normal mood Skin exam: Present: warm, dry Course Vital Signs 05/15/23 05/15/23 13:23 15:31 Temperature 98.9 F 97.8 F Pulse Rate 52 L 53 L Respiratory 18 19 Rate Blood Pressure 185/83 163/69 O2 Sat by Pulse 99 99 Oximetry Medical Decision Making - Medical Decision Making Was pt. sent in by a medical professional or institution ([facility], PASTE UP WORKER, urgent care, hospital, or penitentiary...) When possible be specific @ -No Did you speak to anyone other than the patient for history (EMS, parent, family, police, friend...)? What history was obtained from this source @ -Spoke to patient's who provided portions of history. For further details please see HPI. Did you review nursing and triage notes (agree or disagree)? Why? @ -I reviewed and agree with nursing and triage notes Were old charts reviewed (outside hosp., previous admission, EMS record, old EKG, old radiological studies, urgent care reports/EKG's, penitentiary records)? Report findings @ -Old charts reviewed showing prior admission here. At that time was also having lightheadedness, dizziness, and diarrhea. Sodium compared to prior visit markedly low. Differential Diagnosis (chest pain, altered mental status, abdominal pain women, abdominal pain men, vaginal bleeding, weakness, fever, dyspnea, syncope, headache, dizziness, GI bleed, back pain, seizure, CVA, palpatations, mental health, musculoskeletal)? @ -Differential Altered Mental Status: Hypoglycemia, DKA, hypercapnia, ETOH, overdose, CO poisoning, trauma, myxedema coma, HTN encephalopathy, infection, encephalitis, psychosis, intercranial hemorrhage, hepatic encephalopathy, meningitis, CVA, this is not meant to be an all-inclusive list EKG interpreted by me (3pts min.). @ -None, currently pending X-rays interpreted by me (1pt min.). @ -x-ray shows no acute process. CT interpreted by me (1pt min.). @ -CT brain shows no acute process. U/S interpreted by me (1pt. min.). @ -None done What testing was considered but not performed or refused? (CT, X-rays, U/S, lab s)? Why? @ -None What meds were considered but not given or refused? Why? @ -None Did you discuss the management of the patient with other professionals (professionals i.e. , PA, PASTE UP WORKER, lab, RT, psych nurse, delinquency prevention social worker, spool sorter, teacher, chief resource officer, behavioral health case manager)? Give summary @ -Spoke to Dr. Wilson who accepted admission with consult to nephrology. Was smoking cessation discussed for >3mins.? @ -No Was critical care preformed (if so, how long)? @ -No Were there social determinants of health that impacted care today? How? (Homelessness, low income, unemployed, alcoholism, drug addiction, trans portation, low edu. Level, literacy, decrease access to med. care, shelter, rehab)? @ -No Was there de-escalation of care discussed even if they declined (Discuss DNR or withdrawal of care, Hospice)? DNR status @ -No What co-morbidities impacted this encounter? (DM, HTN, Smoking, COPD, CAD, Cancer, CVA, ARF, Chemo, Hep., AIDS, mental health diagnosis, sleep apnea, morbid obesity)? @ -ESRD, HTN Was patient admitted / discharged? Hospital course, mention meds given and route, prescriptions, significant lab abnormalities, going to OR and other pertinent info. @ -Admission. CBC significant for a hemoglobin of 8.2 however reportedly improved from prior hemoglobin at 7.9. Chemistry shows hyponatremia at 117, previous at 134. BUN/creatinine and creatinine are at baseline. Imaging studies unremarkable at this time. Patient will be admitted with consult to nephrology and for sodium correction. Discussed plan of care with patient and who are in agreement. Undiagnosed new problem with uncertain prognosis? @ -No Drug Therapy requiring intensive monitoring for toxicity (Heparin, Nitro, Insulin, Cardizem)? @ -No Were any procedures done? @ -No Diagnosis/symptom? @ -Hyponatremia, anemia, ESRD Acute, or Chronic, or Acute on Chronic? @ -Acute on chronic Uncomplicated (without systemic symptoms) or Complicated (systemic symptoms)? @ -Uncomplicated Side effects of treatment? @ -No Exacerbation, Progression, or Severe Exacerbation? @ -No Poses a threat to life or bodily function? How? (Chest pain, [place], MA, pneumonia, PE, COPD, DKA, ARF, appy, cholecystitis, CVA, Diverticulitis, Homicidal, Suicidal, threat to staff... and all critical care pts) @ -Yes, hyponatremia - Lab Data Result diagrams: 05/15/23 13:55 05/15/23 13:55 Lab Results 05/15/23 05/15/23 05/15/23 Range/Units 13:55 13:55 13:55 WBC 5.5 (3.8-10.6) k/uL RBC 2.52 L (4.30-5.90) m/uL Hgb 8.2 L (13.0-17.5) gm/dL Hct 22.0 L (39.0-53.0) % MCV 87.4 (80.0-100.0) fL MCH 32.6 (25.0-35.0) pg MCHC 37.3 H (31.0-37.0) g/dL RDW 13.1 (11.5-15.5) % Plt Count 132 L (150-450) k/uL MPV 8.3 Neutrophils % 64 % Lymphocytes % 12 % Monocytes % 8 % Eosinophils % 14 % Basophils % 0 % Neutrophils # 3.5 (1.3-7.7) k/uL Lymphocytes # 0.7 L (1.0-4.8) k/uL Monocytes # 0.4 (0-1.0) k/uL Eosinophils # 0.8 H (0-0.7) k/uL Basophils # 0.0 (0-0.2) k/uL Hyperchromasia Slight PT 10.1 (9.0-12.0) sec INR 0.9 (<1.2) APTT 24.0 (22.0-30.0) sec Sodium 117 L* (137-145) mmol/L Potassium 3.7 (3.5-5.1) mmol/L Chloride 83 L (98-107) mmol/L Carbon Dioxide 26 (22-30) mmol/L Anion Gap 8 mmol/L BUN 72 H (9-20) mg/dL Creatinine 8.76 H* (0.66-1.25) mg/dL Est GFR (CKD-EPI)AfAm 6 (>60 ml/min/1.73 sqM) Est GFR (CKD-EPI)NonAf 5 (>60 ml/min/1.73 sqM) Glucose 169 H (74-99) mg/dL POC Glucose (mg/dL) (70-110) mg/dL POC Glu Basket Person ID Plasma Lactic Acid Bill (0.7-2.0) mmol/L Calcium 8.6 (8.4-10.2) mg/dL Magnesium 2.4 H (1.6-2.3) mg/dL Total Bilirubin 0.4 (0.2-1.3) mg/dL AST 26 (17-59) U/L ALT 23 (4-49) U/L Alkaline Phosphatase 47 (38-126) U/L Troponin I (0.000-0.034) ng/mL Total Protein 4.9 L (6.3-8.2) g/dL Albumin 2.6 L (3.5-5.0) g/dL 05/15/23 05/15/23 05/15/23 Range/Units 13:55 13:55 14:51 WBC (3.8-10.6) k/uL RBC (4.30-5.90) m/uL Hgb (13.0-17.5) gm/dL Hct (39.0-53.0) % MCV (80.0-100.0) fL MCH (25.0-35.0) pg MCHC (31.0-37.0) g/dL RDW (11.5-15.5) % Plt Count (150-450) k/uL MPV Neutrophils % % Lymphocytes % % Monocytes % % Eosinophils % % Basophils % % Neutrophils # (1.3-7.7) k/uL Lymphocytes # (1.0-4.8) k/uL Monocytes # (0-1.0) k/uL Eosinophils # (0-0.7) k/uL Basophils # (0-0.2) k/uL Hyperchromasia PT (9.0-12.0) sec INR (<1.2) APTT (22.0-30.0) sec Sodium (137-145) mmol/L Potassium (3.5-5.1) mmol/L Chloride (98-107) mmol/L Carbon Dioxide (22-30) mmol/L Anion Gap mmol/L BUN (9-20) mg/dL Creatinine (0.66-1.25) mg/dL Est GFR (CKD-EPI)AfAm (>60 ml/min/1.73 sqM) Est GFR (CKD-EPI)NonAf (>60 ml/min/1.73 sqM) Glucose (74-99) mg/dL POC Glucose (mg/dL) 171 H (70-110) mg/dL POC Glu Basket Person ID [facility] Plasma Lactic Acid Bill 0.7 (0.7-2.0) mmol/L Calcium (8.4-10.2) mg/dL Magnesium (1.6-2.3) mg/dL Total Bilirubin (0.2-1.3) mg/dL AST (17-59) U/L ALT (4-49) U/L Alkaline Phosphatase (38-126) U/L Troponin I <0.012 (0.000-0.034) ng/mL Total Protein (6.3-8.2) g/dL Albumin (3.5-5.0) g/dL Disposition Clinical Impression: Hyponatremia, ESRD (end stage renal disease), Anemia Disposition: ADMITTED IP TO THIS HOSP Referrals: Jerry Jara Jr, [Primary Care Provider] - 1-2 days Time of Disposition: 15:18
[2023-05-15] MEDS ORDERED: NALOXONE 0.4 MG/ML 1 ML VIAL IV PRN (15:38)
[2023-05-15] MEDS: SODIUM CHLORIDE 0.9% 1,000 ML IV SCH (16:48)
[2023-05-15] MEDS ORDERED: CALCIUM ACETATE 667 MG TAB PO PRN (20:21)
[2023-05-15] MEDS: DIALYSIS (PERIT 2.5%) 2,000 ML 50 G/2,000 ML BAG INTRAPERIT SCH (23:04)
[2023-05-16 00:11] LABS: Appearance,Urine Clear (Clear); Bilirubin,Urine Negative (Negative); Blood,Urine Trace (Negative); Color,Urine Light Yellow; Glucose,Urine (UA) 2+ (Negative); Ketones,Urine Negative (Negative); Leukocyte Esterase,Urine Negative (Negative); Nitrite,Urine Negative (Negative); PH, Urine 6.5 (5.0-8.0); Protein,Urine 1+ (Negative); RBC,Urine 2 /hpf (0-5); Squamous Epithelial Cell,Urine 1 /hpf (0-4); Urobilinogen,Urine 0.2 mg/dL (<2.0); WBC,Urine 5 /hpf (0-5)
[2023-05-16 00:12] LABS: Amorphous Sediment,Urine Occasional /hpf; Hyaline Casts,Urine 2 /lpf (0-2); Sperm,Urine Rare /hpf
[2023-05-16] MEDS: cloNIDine HCL 0.1 MG TAB PO PRN (02:09)
[2023-05-16 02:21] LABS: African American GFR (CKD) 6 (>60 ml/min/1.73 sqM); Anion Gap 9 mmol/L; Blood Urea Nitrogen 67 mg/dL (9-20); Calcium 8.2 mg/dL (8.4-10.2); Carbon Dioxide 25 mmol/L (22-30); Chloride 83 mmol/L (98-107); Glucose 161 mg/dL (74-99); Non-African American GFR(CKD) 5 (>60 ml/min/1.73 sqM); Potassium 3.6 mmol/L (3.5-5.1)
[2023-05-16 02:29] LABS: Sodium 117 mmol/L (137-145)
[2023-05-16] MEDS: DIALYSIS (PERIT 2.5%) 2,000 ML 50 G/2,000 ML BAG INTRAPERIT SCH ×4 (03:05→11:56)
[2023-05-16 06:21] LABS: Glucose,Whole Blood 227 mg/dL (70-110)
[2023-05-16] MEDS: carvediloL 12.5 MG TAB PO SCH ×3 (06:29→16:20)
[2023-05-16] MEDS: CALCIUM ACETATE 667 MG TAB PO SCH ×3 (06:29→16:20)
[2023-05-16] MEDS: SODIUM CHLORIDE 0.9% 1,000 ML IV SCH ×2 (08:02→11:23)
[2023-05-16] MEDS: INSULIN DETEMIR (LEVEMIR) 100 UNIT/ML SYR SQ SCH (08:08)
[2023-05-16] MEDS: hydrALAZINE HCL 25 MG TAB PO SCH ×4 (08:08→21:27)
[2023-05-16] MEDS: amLODIPine 10 MG TAB PO SCH (08:08)
[2023-05-16] MEDS: guaiFENesin 600 MG TABLET.ER PO PRN ×2 (09:21→21:27)
[2023-05-16 10:10] LABS: African American GFR (CKD) 6 (>60 ml/min/1.73 sqM); Anion Gap 9 mmol/L; Blood Urea Nitrogen 65 mg/dL (9-20); Calcium 8.5 mg/dL (8.4-10.2); Carbon Dioxide 26 mmol/L (22-30); Chloride 81 mmol/L (98-107); Glucose 182 mg/dL (74-99); Non-African American GFR(CKD) 5 (>60 ml/min/1.73 sqM); Potassium 3.6 mmol/L (3.5-5.1)
[2023-05-16 10:23] LABS: Sodium 116 mmol/L (137-145)
--- NOTE | 2023-05-16 11:01 | P.HPIM ---
History of Present Illness H&P Date: 05/16/23 Chief Complaint: Fatigue and diarrhea Ferdinand is a 78-year-old male well-known to the practice. He has known chronic hyponatremia, anemia of chronic kidney disease and end-stage renal disease on peritoneal dialysis. He presented emergency room with increased fatigue and weakness. His admission sodium was 117. Having ongoing diarrhea for several weeks. He is overall feeling poorly. Currently this a.m. patient reports first formed stool in several weeks. He denies any chest pains, pressures, shortness breath, nausea, or vomiting. He reports no irritation or redness near the peroneal dialysis catheter. He does complain of muscle twitching and spasm. He does report ongoing cough for the past week Review of Systems All systems: negative 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, LEFT TOTAL HIP, BILATERAL CATARACT SURGERY WITH LENS IMPLANT Past Anesthesia/Blood Transfusion Reactions: No Reported Reaction Smoking Status: Never smoker - Past Family History Mother Family Medical History: Cancer Father History Unknown: Yes Medications and Allergies Home Medications Medication Instructions Recorded Confirmed Type Calcium Acetate [PhosLo] 1,334 mg PO TID-W/MEALS 09/02/21 05/15/23 History Calcium Acetate [PhosLo] 667 mg PO BID PRN 03/09/22 05/15/23 History Insulin Glargine [Lantus Vial] 4 unit SQ DAILY 07/28/22 05/15/23 History amLODIPine [Norvasc] 10 mg PO DAILY 07/28/22 05/15/23 History carvediloL [Coreg] 25 mg PO BID 07/28/22 05/15/23 History hydrALAZINE HCL [Apresoline] 25 mg PO TID 02/10/23 05/15/23 History Mirtazapine [Remeron Soluspan] 15 mg PO HS 05/15/23 05/15/23 History Multivitamins, Thera [Multivitamin 1 tab PO DAILY 05/15/23 05/15/23 History (formulary)] cloNIDine HCL 0.1 mg PO TID PRN 05/15/23 05/15/23 History rOPINIRole HCL [Requip] 0.25 mg PO HS 05/15/23 05/15/23 History Allergies Allergy/AdvReac Type Severity Reaction Status Date / Time citric acid Allergy Rash/Hives Verified 05/15/23 18:55 latex Allergy Swelling, Verified 05/15/23 18:55 SKIN TURNED RED,BURNING, ITCHING losartan Allergy Cough Verified 05/15/23 18:55 hydrocodone [From [place]] AdvReac Hallucinati Verified 05/15/23 18:55 ons Physical Exam Vitals: Vital Signs Temp Pulse Pulse Resp BP BP Pulse Ox 05/16/23 09:24 98.3 F 57 L 16 164/78 99 05/16/23 08:02 98.3 F 57 L 16 164/78 99 05/16/23 05:02 98.1 F 64 18 137/74 98 05/16/23 02:41 98.6 F 63 18 156/67 98 05/16/23 02:30 18 05/15/23 23:54 60 18 186/77 94 L 05/15/23 20:00 97.8 F 62 18 185/70 96 05/15/23 18:41 57 L 18 150/62 98 05/15/23 16:32 57 L 18 159/65 98 05/15/23 15:31 97.8 F 53 L 19 163/69 99 05/15/23 13:23 98.9 F 52 L 18 185/83 99 Intake and Output 05/15/23 05/16/23 05/16/23 22:59 06:59 14:59 Intake Total 250 118 Balance 250 118 Intake: Oral 250 118 Other: Voiding Method Urinal Toilet Urinal Weight 71.668 kg GENERAL: Elderly male somewhat pale, fatigue, resting comfortably HEAD: Atraumatic, normocephalic. EYES: Pupils equal round and reactive to light, extraocular movements intact, sclera anicteric, conjunctiva are normal. ENT:nares patent, oropharynx clear without exudates. Moist mucous membranes. NECK: Normal range of motion, supple without lymphadenopathy or JVD, no thyromegaly LUNGS: Breath sounds clear to auscultation bilaterally and equal. No wheezes rales or rhonchi. HEART: Regular rate and rhythm without , rubs or gallops.S1S2 Normal,2/6 systolic ejection murmur ABDOMEN: Soft, nontender, normoactive bowel sounds. No guarding, no rebound. No masses appreciated. Perianal [place] catheter clean dry and intact. No rox- irritation EXTREMITIES: Normal range of motion, no pitting or edema. No clubbing or cyanosis. NEUROLOGICAL: Cranial nerves II through XII grossly intact. Normal speech, normal gait. PSYCH: Normal mood, normal affect. SKIN: Warm, Dry, normal turgor, no rashes or lesions noted. Results CBC & Chem 7: 05/15/23 13:55 05/16/23 09:27 Labs: Abnormal Lab Results - Last 24 Hours (Table) 05/15/23 05/15/23 05/15/23 Range/Units 13:55 13:55 14:51 RBC 2.52 L (4.30-5.90) m/uL Hgb 8.2 L (13.0-17.5) gm/dL Hct 22.0 L (39.0-53.0) % MCHC 37.3 H (31.0-37.0) g/dL Plt Count 132 L (150-450) k/uL Lymphocytes # 0.7 L (1.0-4.8) k/uL Eosinophils # 0.8 H (0-0.7) k/uL Sodium 117 L* (137-145) mmol/L Chloride 83 L (98-107) mmol/L BUN 72 H (9-20) mg/dL Creatinine 8.76 H* (0.66-1.25) mg/dL Glucose 169 H (74-99) mg/dL POC Glucose (mg/dL) 171 H (70-110) mg/dL Osmolality (280-301) mosm/kg Calcium (8.4-10.2) mg/dL Magnesium 2.4 H (1.6-2.3) mg/dL Total Protein 4.9 L (6.3-8.2) g/dL Albumin 2.6 L (3.5-5.0) g/dL Urine Protein (Negative) Urine Glucose (UA) (Negative) Urine Blood (Negative) Amorphous Sediment (None) /hpf 05/15/23 05/15/23 05/15/23 Range/Units 15:39 18:45 20:54 RBC (4.30-5.90) m/uL Hgb (13.0-17.5) gm/dL Hct (39.0-53.0) % MCHC (31.0-37.0) g/dL Plt Count (150-450) k/uL Lymphocytes # (1.0-4.8) k/uL Eosinophils # (0-0.7) k/uL Sodium 116 L* (137-145) mmol/L Chloride (98-107) mmol/L BUN (9-20) mg/dL Creatinine (0.66-1.25) mg/dL Glucose (74-99) mg/dL POC Glucose (mg/dL) (70-110) mg/dL Osmolality 274 L (280-301) mosm/kg Calcium (8.4-10.2) mg/dL Magnesium (1.6-2.3) mg/dL Total Protein (6.3-8.2) g/dL Albumin (3.5-5.0) g/dL Urine Protein 1+ H (Negative) Urine Glucose (UA) 2+ H (Negative) Urine Blood Trace H (Negative) Amorphous Sediment Occasional H (None) /hpf 05/16/23 05/16/23 05/16/23 Range/Units 01:23 06:20 09:27 RBC (4.30-5.90) m/uL Hgb (13.0-17.5) gm/dL Hct (39.0-53.0) % MCHC (31.0-37.0) g/dL Plt Count (150-450) k/uL Lymphocytes # (1.0-4.8) k/uL Eosinophils # (0-0.7) k/uL Sodium 117 L* 116 L* (137-145) mmol/L Chloride 83 L 81 L (98-107) mmol/L BUN 67 H 65 H (9-20) mg/dL Creatinine 9.00 H* 9.03 H* (0.66-1.25) mg/dL Glucose 161 H 182 H (74-99) mg/dL POC Glucose (mg/dL) 227 H (70-110) mg/dL Osmolality (280-301) mosm/kg Calcium 8.2 L (8.4-10.2) mg/dL Magnesium (1.6-2.3) mg/dL Total Protein (6.3-8.2) g/dL Albumin (3.5-5.0) g/dL Urine Protein (Negative) Urine Glucose (UA) (Negative) Urine Blood (Negative) Amorphous Sediment (None) /hpf Chest x-ray: report reviewed CT Scan - head: report reviewed Thrombosis Risk Factor Assmnt - Choose All That Apply Any of the Below Risk Factors Present?: Yes Each Risk Factor Represents 3 Points: Age 75 years or older Thrombosis Risk Factor Assessment Total Risk Factor Score: 3 Thrombosis Risk Factor Assessment Level: Moderate Risk Assessment and Plan (1) Hyponatremia Current Visit: Yes Status: Acute Code(s): E87.1 - HYPO-OSMOLALITY AND HYPONATREMIA SNOMED Code(s): 19682575 (2) Dehydration Current Visit: Yes Status: Acute Code(s): E86.0 - DEHYDRATION SNOMED Code(s): 53148969 (3) Anemia Current Visit: Yes Status: Acute Code(s): D64.9 - ANEMIA, UNSPECIFIED SNOMED Code(s): 042628490 (4) ESRD on peritoneal dialysis Current Visit: No Status: Acute Code(s): N18.6 - END STAGE RENAL DISEASE; Z99.2 - DEPENDENCE ON RENAL DIALYSIS SNOMED Code(s): 092873130 (5) CAD (coronary artery disease) Current Visit: No Status: Acute Code(s): I25.10 - ATHSCL HEART DISEASE OF [place] CORONARY ARTERY W/O ANG PCTRS SNOMED Code(s): 49234579 (6) H/O four vessel coronary artery bypass graft Current Visit: No Status: Acute Code(s): Z95.1 - PRESENCE OF AORTOCORONARY BYPASS GRAFT SNOMED Code(s): 528276220 (7) Muscle twitching Current Visit: Yes Status: Acute Code(s): R25.3 - FASCICULATION SNOMED Code(s): 10324807 (8) Cough Current Visit: Yes Status: Acute Code(s): R05.9 - COUGH, UNSPECIFIED SNOMED Code(s): 55780451 Plan: At this time patient's resting and selective. He was transferred from med surg. Originally was supposed to go to intensive care unit due to his low sodium. Nephrology was consulted, perineal dialysis orders have been received from them. For the cough will receive a dose of ceftriaxone, we'll reorder his home medications including her apparent O, gentle IV fluid hydration, restart his sodium tablets. Repeat labs in a.m., reevaluate next 24 hours.
[2023-05-16 11:45] LABS: Glucose,Whole Blood 185 mg/dL (70-110)
[2023-05-16] MEDS ORDERED: ONDANSETRON 4 MG/2 ML VIAL IVP PRN (12:55)
--- NOTE | 2023-05-16 14:17 | P.NPCON ---
History of Present Illness - Reason for Consult Consult date: 05/16/23 end stage renal disease - Chief Complaint Fatigue and diarrhea - History of Present Illness 78-year-old gentleman coming to the hospital with the above complaints. He has ESRD on peritoneal dialysis, CAPD 2 L, 1.5%, every 6 hours. History of multiple hyponatremia is in the past. As per the family had a viral illness associated with diarrhea for the last few days. [place] serum sodium was 117. Per the family whenever he gets these kind of illness sodium drops and requested to be started on fluids. Review of Systems Constitutional: Reports as per HPI 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, LEFT TOTAL HIP, BILATERAL CATARACT SURGERY WITH LENS IMPLANT Past Anesthesia/Blood Transfusion Reactions: No Reported Reaction Smoking Status: Never smoker - Past Family History Mother Family Medical History: Cancer Father History Unknown: Yes Medications and Allergies Home Medications Medication Instructions Recorded Confirmed Type RX: Calcium Acetate [PhosLo] 1,334 mg PO TID-W/MEALS 09/02/21 05/15/23 History RX: Calcium Acetate [PhosLo] 667 mg PO BID PRN 03/09/22 05/15/23 History Insulin Glargine [Lantus Vial] 4 unit SQ DAILY 07/28/22 05/15/23 History RX: amLODIPine [Norvasc] 10 mg PO DAILY 07/28/22 05/15/23 History carvediloL [Coreg] 25 mg PO BID 07/28/22 05/15/23 History hydrALAZINE HCL [Apresoline] 25 mg PO TID 02/10/23 05/15/23 History Mirtazapine [Remeron Soluspan] 15 mg PO HS 05/15/23 05/15/23 History Multivitamins, Thera [Multivitamin 1 tab PO DAILY 05/15/23 05/15/23 History (formulary)] RX: cloNIDine HCL 0.1 mg PO TID PRN 05/15/23 05/15/23 History rOPINIRole HCL [Requip] 0.25 mg PO HS 05/15/23 05/15/23 History Allergies Allergy/AdvReac Type Severity Reaction Status Date / Time citric acid Allergy Rash/Hives Verified 05/15/23 18:55 latex Allergy Swelling, Verified 05/15/23 18:55 SKIN TURNED RED,BURNING, ITCHING losartan Allergy Cough Verified 05/15/23 18:55 hydrocodone [From [employer]] AdvReac Hallucinati Verified 05/15/23 18:55 ons Physical Exam Vitals: Vital Signs Temp Pulse Pulse Resp BP BP Pulse Ox 05/16/23 13:06 59 L 05/16/23 11:00 59 L 16 177/72 97 05/16/23 09:24 98.3 F 57 L 16 164/78 99 05/16/23 08:02 98.3 F 57 L 16 164/78 99 05/16/23 05:02 98.1 F 64 18 137/74 98 05/16/23 02:41 98.6 F 63 18 156/67 98 05/16/23 02:30 18 05/15/23 23:54 60 18 186/77 94 L 05/15/23 20:00 97.8 F 62 18 185/70 96 05/15/23 18:41 57 L 18 150/62 98 05/15/23 16:32 57 L 18 159/65 98 05/15/23 15:31 97.8 F 53 L 19 163/69 99 Intake and Output 05/15/23 05/16/23 05/16/23 22:59 06:59 14:59 Intake Total 250 118 Balance 250 118 Intake: Oral 250 118 Other: Voiding Method Urinal Toilet Urinal # Voids 1 # Bowel Movements 1 Weight 71.668 kg No acute distress S1-S2 heard Lungs clear Abdomen soft No edema Results - Lab Results Most recent lab results Calcium 8.5 mg/dL (8.4-10.2) 05/16/23 09:27 Magnesium 2.4 mg/dL (1.6-2.3) H 05/15/23 13:55 05/15/23 13:55 05/16/23 09:27 Assessment and Plan Assessment: #1 hypernatremia secondary to hypovolemia from volume depletion #2 ESRD on CAPD, 1.5% dialysate, 2000 ML's, every 6 hours. #3 anemia with ESRD #4 metabolic bone disease Plan: #1 change the prescription to 1.5% dialysate, 2000 ML's, every 6 hours. #2 currently on IV fluids, continue. #3 labs every 6 hours.
[2023-05-16] MEDS ORDERED: ONDANSETRON 4 MG/2 ML VIAL IVP STA (15:06)
[2023-05-16] MEDS ORDERED: DIALYSIS (PERIT 1.5%) 2,000 ML 30 G/2,000 ML BAG INTRAPERIT SCH (16:00)
[2023-05-16 16:59] LABS: Glucose,Whole Blood 163 mg/dL (70-110)
[2023-05-16] MEDS: DIALYSIS (PERIT 1.5%) 2,000 ML 30 G/2,000 ML BAG INTRAPERIT SCH (17:35)
[2023-05-16 18:10] LABS: African American GFR (CKD) 6 (>60 ml/min/1.73 sqM); Anion Gap 9 mmol/L; Blood Urea Nitrogen 67 mg/dL (9-20); Calcium 8.2 mg/dL (8.4-10.2); Carbon Dioxide 24 mmol/L (22-30); Chloride 83 mmol/L (98-107); Glucose 157 mg/dL (74-99); Non-African American GFR(CKD) 5 (>60 ml/min/1.73 sqM); Potassium 3.7 mmol/L (3.5-5.1)
[2023-05-16 18:12] LABS: Sodium 116 mmol/L (137-145)
[2023-05-16 20:11] LABS: Glucose,Whole Blood 183 mg/dL (70-110)
[2023-05-16] MEDS: MIRTAZAPINE 15 MG PO SCH ×2 (23:12)
[2023-05-17] MEDS: DIALYSIS (PERIT 1.5%) 2,000 ML 30 G/2,000 ML BAG INTRAPERIT SCH ×3 (05:21→17:25)
[2023-05-17 06:10] LABS: Glucose,Whole Blood 125 mg/dL (70-110)
[2023-05-17] MEDS: carvediloL 12.5 MG TAB PO SCH ×2 (06:17→17:16)
[2023-05-17] MEDS: SODIUM CHLORIDE 0.9% 1,000 ML IV SCH (06:18)
[2023-05-17] MEDS: amLODIPine 10 MG TAB PO SCH (09:15)
[2023-05-17] MEDS: hydrALAZINE HCL 25 MG TAB PO SCH ×3 (09:15→21:30)
[2023-05-17] MEDS: INSULIN DETEMIR (LEVEMIR) 100 UNIT/ML SYR SQ SCH (09:15)
[2023-05-17] MEDS: CALCIUM ACETATE 667 MG TAB PO SCH ×3 (09:17→17:16)
[2023-05-17 09:58] LABS: African American GFR (CKD) 6 (>60 ml/min/1.73 sqM); Anion Gap 10 mmol/L; Blood Urea Nitrogen 65 mg/dL (9-20); Calcium 8.1 mg/dL (8.4-10.2); Carbon Dioxide 24 mmol/L (22-30); Chloride 85 mmol/L (98-107); Glucose 121 mg/dL (74-99); Non-African American GFR(CKD) 5 (>60 ml/min/1.73 sqM); Potassium 3.4 mmol/L (3.5-5.1)
[2023-05-17 10:09] LABS: Sodium 119 mmol/L (137-145)
[2023-05-17] MEDS ORDERED: POTASSIUM CHLORIDE ER 20 MEQ TAB.ER PO STA (10:36)
[2023-05-17 11:29] LABS: Glucose,Whole Blood 151 mg/dL (70-110)
[2023-05-17] MEDS: PANTOPRAZOLE 40 MG/10 ML VIAL IVP SCH (12:26)
[2023-05-17] MEDS: LACTULOSE 20 GM/30 ML CUP PO SCH ×2 (12:47→19:58)
--- NOTE | 2023-05-17 13:43 | XR ---
EXAMINATION TYPE: XR abdomen 2V DATE OF EXAM: 05/17/2023 COMPARISON: None INDICATION: Catheter placement TECHNIQUE: Two view abdomen supine and upright views FINDINGS: There is a nonspecific bowel gas pattern. No mass effect is evident. No free air is identified. Psoas margins are normal. No organomegaly is present. Placement of a midline catheter which curls within the lower pelvis. IMPRESSION: 1. Placement of a midline catheter with the curled and within the lower pelvis. 2. Nonspecific abdomen
--- NOTE | 2023-05-17 14:00 | P.PN ---
Subjective Progress Note Date: 05/17/23 H&P Date: 05/16/23 Chief Complaint: Fatigue and diarrhea Ferdinand is a 78-year-old male well-known to the practice. He has known chronic hyponatremia, anemia of chronic kidney disease and end-stage renal disease on peritoneal dialysis. He presented emergency room with increased fatigue and weakness. His admission sodium was 117. Having ongoing diarrhea for several weeks. He is overall feeling poorly. Currently this a.m. patient reports first formed stool in several weeks. He denies any chest pains, pressures, shortness breath, nausea, or vomiting. He reports no irritation or redness near the peroneal dialysis catheter. He does complain of muscle twitching and spasm. He does report ongoing cough for the past week 05/17/2023 CAPD dialysate adjusted as per nephrology yesterday. Staff reports not draining, abdominal x-ray pending. Sodium improved up to 119. Continues on IV fluids and fluid restrictions. Denies chest pain, palpitations or shortness of breath. Objective - Vital Signs Vital signs: Vital Signs Temp 98.2 F 05/17/23 08:00 Pulse 64 05/17/23 08:00 Resp 18 05/17/23 08:00 BP 189/74 05/17/23 08:00 Pulse Ox 95 05/17/23 08:00 FiO2 Intake & Output 05/16/23 05/17/23 05/17/23 18:59 06:59 18:59 Intake Total 358 750 480 Balance 358 750 480 Weight 71.668 kg Intake: Intake, IV Titration 600 Amount Sodium Chloride 0.9% 1, 600 000 ml @ 50 mls/hr IV . Q20H [facility] Rx#:[id number] Oral 358 150 480 Other: Voiding Method Toilet Toilet Toilet Urinal Urinal Urinal # Voids 1 # Bowel Movements 1 1 - Exam GENERAL: Alert and oriented 3, Sitting up at side of bed, no acute distress, conversing without shortness of breath. HEAD: Atraumatic, normocephalic. EYES: Pupils equal round and reactive to light, extraocular movements intact, sclera anicteric, conjunctiva are normal. ENT: Moist mucous membranes. NECK: Supple, no JVD. LUNGS: Breath sounds clear to auscultation bilaterally and equal. No wheezes rales or rhonchi. HEART: Regular rate and rhythm without , rubs or gallops.S1S2 , systolic ejection murmur ABDOMEN: Soft, nontender, normoactive bowel sounds. No guarding, no rebound. No masses appreciated. Peritoneal dialysis catheter present without irritation. EXTREMITIES: no pitting edema. No clubbing or cyanosis. NEUROLOGICAL: Cranial nerves II through XII grossly intact. No focal deficits. SKIN: Warm, Dry, no rashes or lesions noted. - Labs CBC & Chem 7: 05/15/23 13:55 05/17/23 08:39 Labs: Abnormal Lab Results - Last 24 Hours (Table) 05/16/23 05/16/23 05/16/23 Range/Units 16:41 16:54 20:10 Sodium 116 L* (137-145) mmol/L Potassium (3.5-5.1) mmol/L Chloride 83 L (98-107) mmol/L BUN 67 H (9-20) mg/dL Creatinine 8.99 H* (0.66-1.25) mg/dL Glucose 157 H (74-99) mg/dL POC Glucose (mg/dL) 163 H 183 H (70-110) mg/dL Calcium 8.2 L (8.4-10.2) mg/dL 05/17/23 05/17/23 05/17/23 Range/Units 06:08 08:39 11:26 Sodium 119 L* (137-145) mmol/L Potassium 3.4 L (3.5-5.1) mmol/L Chloride 85 L (98-107) mmol/L BUN 65 H (9-20) mg/dL Creatinine 9.14 H* (0.66-1.25) mg/dL Glucose 121 H (74-99) mg/dL POC Glucose (mg/dL) 125 H 151 H (70-110) mg/dL Calcium 8.1 L (8.4-10.2) mg/dL Assessment and Plan Assessment: (1) Hyponatremia Current Visit: Yes Status: Acute Code(s): E87.1 - HYPO-OSMOLALITY AND HYPONATREMIA SNOMED Code(s): 89908381 (2) Dehydration Current Visit: Yes Status: Acute Code(s): E86.0 - DEHYDRATION SNOMED Code(s): 92202250 (3) Anemia Current Visit: Yes Status: Acute Code(s): D64.9 - ANEMIA, UNSPECIFIED SNOMED Code(s): 290179777 (4) ESRD on peritoneal dialysis Current Visit: No Status: Acute Code(s): N18.6 - END STAGE RENAL DISEASE; Z99.2 - DEPENDENCE ON RENAL DIALYSIS SNOMED Code(s): 855149343 (5) CAD (coronary artery disease) Current Visit: No Status: Acute Code(s): I25.10 - ATHSCL HEART DISEASE OF [place] CORONARY ARTERY W/O ANG PCTRS SNOMED Code(s): 72342185 (6) H/O four vessel coronary artery bypass graft Current Visit: No Status: Acute Code(s): Z95.1 - PRESENCE OF AORTOCORONARY BYPASS GRAFT SNOMED Code(s): 718554735 (7) Muscle twitching Current Visit: Yes Status: Acute Code(s): R25.3 - FASCICULATION SNOMED Code(s): 80178622 Plan: Continue on current medication regime ,monitoring and symptomatic treatment. CAPD exchanges as per nephrology, currently difficulty with draining, abdominal x-ray pending. Further recommendations per nephrology pending. Gentle IV fluid hydration, fluid restrictions. Close monitoring of sodium, potassium, renal function with repeat labs ordered for a.m. The impression and plan of care has been dictated as directed. : I performed a history and examination of this patient, discussed the same with the dictator. I agree with the dictator's note ,documented as a scribe. Any additional findings or plans will be noted.
--- NOTE | 2023-05-17 14:04 | P.PN ---
Subjective Patient is seen for follow-up for end-stage renal disease. He is currently maintained on peritoneal dialysis. This morning patient states that he was not able to drain this morning for the exchange. Last bowel movement was yesterday Overall feeling slightly better. Currently maintained on normal saline at 50 mL an hour. Objective - Vital Signs Vital signs: Vital Signs Temp 98.2 F 05/17/23 08:00 Pulse 64 05/17/23 08:00 Resp 18 05/17/23 08:00 BP 189/74 05/17/23 08:00 Pulse Ox 95 05/17/23 08:00 FiO2 Intake & Output 05/16/23 05/17/23 05/17/23 18:59 06:59 18:59 Intake Total 358 750 480 Balance 358 750 480 Weight 71.668 kg Intake: Intake, IV Titration 600 Amount Sodium Chloride 0.9% 1, 600 000 ml @ 50 mls/hr IV . Q20H [facility] Rx#:[id number] Oral 358 150 480 Other: Voiding Method Toilet Toilet Toilet Urinal Urinal Urinal # Voids 1 # Bowel Movements 1 1 - Exam Awake, comfortable, no acute distress Examination of the heart S1 and S2 Examination of the lungs bilateral breath sounds are heard Abdomen is soft nontender Examination lower extremity shows no edema [employer] exam grossly intact - Labs CBC & Chem 7: 05/15/23 13:55 05/17/23 08:39 Labs: Abnormal Lab Results - Last 24 Hours (Table) 05/16/23 05/16/23 05/16/23 Range/Units 16:41 16:54 20:10 Sodium 116 L* (137-145) mmol/L Potassium (3.5-5.1) mmol/L Chloride 83 L (98-107) mmol/L BUN 67 H (9-20) mg/dL Creatinine 8.99 H* (0.66-1.25) mg/dL Glucose 157 H (74-99) mg/dL POC Glucose (mg/dL) 163 H 183 H (70-110) mg/dL Calcium 8.2 L (8.4-10.2) mg/dL 05/17/23 05/17/23 05/17/23 Range/Units 06:08 08:39 11:26 Sodium 119 L* (137-145) mmol/L Potassium 3.4 L (3.5-5.1) mmol/L Chloride 85 L (98-107) mmol/L BUN 65 H (9-20) mg/dL Creatinine 9.14 H* (0.66-1.25) mg/dL Glucose 121 H (74-99) mg/dL POC Glucose (mg/dL) 125 H 151 H (70-110) mg/dL Calcium 8.1 L (8.4-10.2) mg/dL Assessment and Plan Assessment: 1. End-stage renal disease on peritoneal dialysis 2. Hypovolemic hyponatremia currently improved with normal saline. Patient is maintained on sodium chloride tab at home. 3. Diarrhea with nausea and vomiting, currently improved 4. Issues with draining noted this morning with peritoneal dialysis. Rule out constipation. Check x-ray for catheter position. 5. CK D mineral bone disorder 6. Anemia status post packed RBCs transfusion recently as outpatient.. No active bleeding noted. Plan: Check abdominal x-ray for catheter position Hold exchange for now and we will try again tonight. Aggressive treatment of constipation. Sodium chloride tab 1 May continue with normal saline for now Replace potassium.
[2023-05-17] MEDS ORDERED: SODIUM CHLORIDE TAB 1 GM TAB PO STA (14:05)
[2023-05-17 16:18] LABS: Glucose,Whole Blood 147 mg/dL (70-110)
[2023-05-17] MEDS: cloNIDine HCL 0.1 MG TAB PO PRN (17:26)
[2023-05-17] MEDS: MIRTAZAPINE 15 MG PO SCH (19:58)
[2023-05-17 20:09] LABS: Glucose,Whole Blood 162 mg/dL (70-110)
[2023-05-18] MEDS: DIALYSIS (PERIT 1.5%) 2,000 ML 30 G/2,000 ML BAG INTRAPERIT SCH ×5 (00:15→23:11)
[2023-05-18] MEDS: SODIUM CHLORIDE 0.9% 1,000 ML IV SCH ×2 (02:46→23:18)
[2023-05-18 06:09] LABS: Glucose,Whole Blood 101 mg/dL (70-110)
[2023-05-18] MEDS: cloNIDine HCL 0.1 MG TAB PO PRN (06:28)
[2023-05-18] MEDS: carvediloL 12.5 MG TAB PO SCH ×2 (06:28→17:07)
[2023-05-18] MEDS: CALCIUM ACETATE 667 MG TAB PO SCH ×3 (06:28→17:07)
[2023-05-18] MEDS: amLODIPine 10 MG TAB PO SCH (08:55)
[2023-05-18] MEDS: hydrALAZINE HCL 25 MG TAB PO SCH ×3 (08:55→20:34)
[2023-05-18] MEDS: PANTOPRAZOLE 40 MG/10 ML VIAL IVP SCH (08:56)
[2023-05-18] MEDS: INSULIN DETEMIR (LEVEMIR) 100 UNIT/ML SYR SQ SCH (08:56)
[2023-05-18 08:57] LABS: African American GFR (CKD) 5 (>60 ml/min/1.73 sqM); Anion Gap 7 mmol/L; Blood Urea Nitrogen 68 mg/dL (9-20); Carbon Dioxide 24 mmol/L (22-30); Chloride 90 mmol/L (98-107); Glucose 99 mg/dL (74-99); Non-African American GFR(CKD) 4 (>60 ml/min/1.73 sqM); Potassium 3.6 mmol/L (3.5-5.1); Sodium 121 mmol/L (137-145)
[2023-05-18] MEDS: LACTULOSE 20 GM/30 ML CUP PO SCH ×3 (09:05→20:35)
--- NOTE | 2023-05-18 10:19 | P.PN ---
Subjective Progress Note Date: 05/18/23 H&P Date: 05/16/23 Chief Complaint: Fatigue and diarrhea Ferdinand is a 78-year-old male well-known to the practice. He has known chronic hyponatremia, anemia of chronic kidney disease and end-stage renal disease on peritoneal dialysis. He presented emergency room with increased fatigue and weakness. His admission sodium was 117. Having ongoing diarrhea for several weeks. He is overall feeling poorly. Currently this a.m. patient reports first formed stool in several weeks. He denies any chest pains, pressures, shortness breath, nausea, or vomiting. He reports no irritation or redness near the peroneal dialysis catheter. He does complain of muscle twitching and spasm. He does report ongoing cough for the past week 05/17/2023 CAPD dialysate adjusted as per nephrology yesterday. Staff reports not draining, abdominal x-ray pending. Sodium improved up to 119. Continues on IV fluids and fluid restrictions. Denies chest pain, palpitations or shortness of breath. 05/18/2023 yesterday patient developed issues with not being able to drain post CAPD exchanges. Abdominal x-ray performed reporting placement of a midline catheter which curls within the lower pelvis, nonspecific abdomen. Last CAPD tx yesterday morning at 0600. Denies abdominal pain. Denies chest pain, palpitations or shortness of breath. Maintaining O2 sats in the high 90s on room air.Sodium increased to 121. BUN 68, creatinine 10.23. Objective - Vital Signs Vital signs: Vital Signs Temp 98.1 F 05/18/23 08:54 Pulse 56 L 05/18/23 08:54 Resp 16 05/18/23 08:54 BP 145/61 05/18/23 08:54 Pulse Ox 97 05/18/23 08:54 FiO2 Intake & Output 05/17/23 05/18/23 05/18/23 18:59 06:59 18:59 Intake Total 480 700 118 Balance 480 700 118 Weight 71.668 kg 71.3 kg Intake: Intake, IV Titration 200 Amount Sodium Chloride 0.9% 1, 200 000 ml @ 50 mls/hr IV . Q20H [facility] Rx#:[id number] Oral 480 500 118 Other: Voiding Method Toilet Toilet Toilet Urinal Urinal Urinal # Voids 1 1 - Exam GENERAL: Alert and oriented 3, Sitting up in bed, no acute distress, conversing without dyspnea. HEAD: Atraumatic, normocephalic. EYES: Pupils equal round and reactive to light, extraocular movements intact, sclera anicteric, conjunctiva are normal. ENT: Moist mucous membranes. NECK: Supple, no JVD. LUNGS: Breath sounds clear to auscultation bilaterally and equal. No wheezes rales or rhonchi. HEART: Regular rate and rhythm without , rubs or gallops.S1S2 , systolic ejection murmur ABDOMEN: Soft, nontender, normoactive bowel sounds. No guarding, no rebound. No masses appreciated. Peritoneal dialysis catheter present without irritation. EXTREMITIES: no pitting edema. No clubbing or cyanosis. NEUROLOGICAL: Cranial nerves II through XII grossly intact. No focal deficits. SKIN: Warm, Dry, no rashes or lesions noted. - Labs CBC & Chem 7: 05/15/23 13:55 05/18/23 08:06 Labs: Abnormal Lab Results - Last 24 Hours (Table) 05/17/23 05/17/23 05/17/23 Range/Units 11:26 16:15 20:08 Sodium (137-145) mmol/L Chloride (98-107) mmol/L BUN (9-20) mg/dL Creatinine (0.66-1.25) mg/dL POC Glucose (mg/dL) 151 H 147 H 162 H (70-110) mg/dL Calcium (8.4-10.2) mg/dL 05/18/23 Range/Units 08:06 Sodium 121 L (137-145) mmol/L Chloride 90 L (98-107) mmol/L BUN 68 H (9-20) mg/dL Creatinine 10.23 H* (0.66-1.25) mg/dL POC Glucose (mg/dL) (70-110) mg/dL Calcium 8.0 L (8.4-10.2) mg/dL Assessment and Plan Assessment: (1) Hyponatremia Current Visit: Yes Status: Acute Code(s): E87.1 - HYPO-OSMOLALITY AND HYPONATREMIA SNOMED Code(s): 29625713 (2) Dehydration Current Visit: Yes Status: Acute Code(s): E86.0 - DEHYDRATION SNOMED Code(s): 17601091 (3) Anemia Current Visit: Yes Status: Acute Code(s): D64.9 - ANEMIA, UNSPECIFIED SNOMED Code(s): 406635548 (4) ESRD on peritoneal dialysis Current Visit: No Status: Acute Code(s): N18.6 - END STAGE RENAL DISEASE; Z99.2 - DEPENDENCE ON RENAL DIALYSIS SNOMED Code(s): 405427500 (5) CAD (coronary artery disease) Current Visit: No Status: Acute Code(s): I25.10 - ATHSCL HEART DISEASE OF [place] CORONARY ARTERY W/O ANG PCTRS SNOMED Code(s): 33866330 (6) H/O four vessel coronary artery bypass graft Current Visit: No Status: Acute Code(s): Z95.1 - PRESENCE OF AORTOCORONARY BYPASS GRAFT SNOMED Code(s): 929852215 (7) Muscle twitching Current Visit: Yes Status: Acute Code(s): R25.3 - FASCICULATION SNOMED Code(s): 91543994 Plan: Continue on current medication regime ,monitoring and symptomatic treatment. CAPD-difficulty with draining, abdominal x-ray noted-further recommendations as per nephrology. Gentle IV fluid hydration, fluid restrictions. Close monitoring of sodium, potassium, renal function with repeat labs ordered for a.m. The impression and plan of care has been dictated as directed. : I performed a history and examination of this patient, discussed the same with the dictator. I agree with the dictator's note ,documented as a scribe. Any additional findings or plans will be noted.
[2023-05-18 11:35] LABS: Glucose,Whole Blood 123 mg/dL (70-110)
[2023-05-18] MEDS ORDERED: rOPINIRole HCL 4 MG TABLET PO ONE (12:30)
--- NOTE | 2023-05-18 12:43 | P.PN ---
Subjective Patient is seen for follow-up for end-stage renal disease. He is currently maintained on peritoneal dialysis. Patient had difficulty in draining yesterday and he refused to continue with peritoneal dialysis for the rest of the day. Patient received lactulose for constipation. He reports having had good bowel movements. Discussed with patient that we should try PD again today. He is agreeable with low volume exchange. X-ray of the abdomen shows catheter tip in lower pelvis area. Objective - Vital Signs Vital signs: Vital Signs Temp 97.8 F 05/18/23 11:39 Pulse 58 L 05/18/23 11:39 Resp 16 05/18/23 11:39 BP 156/97 05/18/23 11:39 Pulse Ox 97 05/18/23 11:39 FiO2 Intake & Output 05/17/23 05/18/23 05/18/23 18:59 06:59 18:59 Intake Total 480 700 118 Balance 480 700 118 Weight 71.668 kg 71.3 kg Intake: Intake, IV Titration 200 Amount Sodium Chloride 0.9% 1, 200 000 ml @ 50 mls/hr IV . 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 End-stage renal disease on peritoneal dialysis 2. Hypovolemic hyponatremia currently improved with normal saline. Patient is maintained on sodium chloride tab at home. 3. Diarrhea with nausea and vomiting, currently improved 4. Issues with draining noted this morning with peritoneal dialysis. X-ray shows catheter tip in lower pelvis which is appropriate. Status post lactulose for constipation. We will attempt PD again today. 5. CK D mineral bone disorder 6. Anemia status post packed RBCs transfusion recently as outpatient.. No active bleeding noted. Plan: Attempt PD again today. If unsuccessful patient will be switched to temporary hemodialysis. May continue with normal saline for now Replace potassium.
--- NOTE | 2023-05-18 14:29 | P.PN ---
Subjective Progress Note Date: 05/18/23 H&P Date: 05/16/23 Chief Complaint: Fatigue and diarrhea Ferdinand is a 78-year-old male well-known to the practice. He has known chronic hyponatremia, anemia of chronic kidney disease and end-stage renal disease on peritoneal dialysis. He presented emergency room with increased fatigue and weakness. His admission sodium was 117. Having ongoing diarrhea for several weeks. He is overall feeling poorly. Currently this a.m. patient reports first formed stool in several weeks. He denies any chest pains, pressures, shortness breath, nausea, or vomiting. He reports no irritation or redness near the peroneal dialysis catheter. He does complain of muscle twitching and spasm. He does report ongoing cough for the past week 05/17/2023 CAPD dialysate adjusted as per nephrology yesterday. Staff reports not draining, abdominal x-ray pending. Sodium improved up to 119. Continues on IV fluids and fluid restrictions. Denies chest pain, palpitations or shortness of breath. 05/18/2023 yesterday patient developed issues with not being able to drain post CAPD exchanges. Abdominal x-ray performed reporting placement of a midline catheter which curls within the lower pelvis, nonspecific abdomen. Last CAPD tx yesterday morning at 0600. Difficulty draining persists. Denies abdominal pain. Denies chest pain, palpitations or shortness of breath. Maintaining O2 sats in the high 90s on room air.Sodium increased to 121. BUN 68, creatinine 10.23. Nephrology discussing peritoneal dialysis. Complains of restless leg syndrome unrelieved by Requip that he has been on for years; changed over to Lyrica renal dose. Objective - Vital Signs Vital signs: Vital Signs Temp 97.8 F 05/18/23 11:39 Pulse 58 L 05/18/23 11:39 Resp 16 05/18/23 11:39 BP 156/97 05/18/23 11:39 Pulse Ox 97 05/18/23 11:39 FiO2 Intake & Output 05/17/23 05/18/23 05/18/23 18:59 06:59 18:59 Intake Total 480 700 118 Balance 480 700 118 Weight 71.668 kg 71.3 kg Intake: Intake, IV Titration 200 Amount Sodium Chloride 0.9% 1, 200 000 ml @ 50 mls/hr IV . Q20H [facility] Rx#:[id number] Oral 480 500 118 Other: Voiding Method Toilet Toilet Toilet Urinal Urinal Urinal # Voids 1 1 # Bowel Movements 1 - Exam GENERAL: Alert and oriented 3, Sitting up in bed, no acute distress, conversing without dyspnea. HEAD: Atraumatic, normocephalic. EYES: Pupils equal round and reactive to light, extraocular movements intact, sclera anicteric, conjunctiva are normal. ENT: Moist mucous membranes. NECK: Supple, no JVD. LUNGS: Breath sounds clear to auscultation bilaterally and equal. No wheezes rales or rhonchi. HEART: Regular rate and rhythm without , rubs or gallops.S1S2 , systolic ejection murmur ABDOMEN: Soft, nontender, normoactive bowel sounds. No guarding, no rebound. N o masses appreciated. Peritoneal dialysis catheter present without irritation. EXTREMITIES: no pitting edema. No clubbing or cyanosis. NEUROLOGICAL: Cranial nerves II through XII grossly intact. No focal deficits. SKIN: Warm, Dry, no rashes or lesions noted. - Labs CBC & Chem 7: 05/15/23 13:55 05/18/23 08:06 Labs: Abnormal Lab Results - Last 24 Hours (Table) 05/17/23 05/17/23 05/18/23 Range/Units 16:15 20:08 08:06 Sodium 121 L (137-145) mmol/L Chloride 90 L (98-107) mmol/L BUN 68 H (9-20) mg/dL Creatinine 10.23 H* (0.66-1.25) mg/dL POC Glucose (mg/dL) 147 H 162 H (70-110) mg/dL Calcium 8.0 L (8.4-10.2) mg/dL 05/18/23 Range/Units 11:33 Sodium (137-145) mmol/L Chloride (98-107) mmol/L BUN (9-20) mg/dL Creatinine (0.66-1.25) mg/dL POC Glucose (mg/dL) 123 H (70-110) mg/dL Calcium (8.4-10.2) mg/dL Assessment and Plan Assessment: (1) Hyponatremia Current Visit: Yes Status: Acute Code(s): E87.1 - HYPO-OSMOLALITY AND HYPONATREMIA SNOMED Code(s): 77916787 (2) Dehydration Current Visit: Yes Status: Acute Code(s): E86.0 - DEHYDRATION SNOMED Code(s): 71920366 (3) Anemia Current Visit: Yes Status: Acute Code(s): D64.9 - ANEMIA, UNSPECIFIED S NOMED Code(s): 268752638 (4) ESRD on peritoneal dialysis Current Visit: No Status: Acute Code(s): N18.6 - END STAGE RENAL DISEASE; Z99.2 - DEPENDENCE ON RENAL DIALYSIS SNOMED Code(s): 417722223 (5) CAD (coronary artery disease) Current Visit: No Status: Acute Code(s): I25.10 - ATHSCL HEART DISEASE OF [place] CORONARY ARTERY W/O ANG PCTRS SNOMED Code(s): 16776853 (6) H/O four vessel coronary artery bypass graft Current Visit: No Status: Acute Code(s): Z95.1 - PRESENCE OF AORTOCORONARY BYPASS GRAFT SNOMED Code(s): 450350331 (7) Muscle twitching Current Visit: Yes Status: Acute Code(s): R25.3 - FASCICULATION SNOMED Code(s): 35515558 Plan: Continue on current medication regime ,monitoring and symptomatic treatment. CAPD-difficulty with draining, attempting another CAPD trial .hemodialysis discussed by nephrology .Gentle IV fluid hydration, fluid restrictions. Close monitoring of sodium, potassium, renal function with repeat labs ordered for a.m. The impression and plan of care has been dictated as directed. : I performed a history and examination of this patient, discussed the same with the dictator. I agree with the dictator's note ,documented as a scribe. Any additional findings or plans will be noted.
[2023-05-18 16:25] LABS: Glucose,Whole Blood 129 mg/dL (70-110)
[2023-05-18] MEDS: PREGABALIN 25 MG CAP PO SCH (17:07)
[2023-05-18 20:13] LABS: Glucose,Whole Blood 157 mg/dL (70-110)
[2023-05-18] MEDS: MIRTAZAPINE 15 MG PO SCH (20:35)
[2023-05-19] MEDS: cloNIDine HCL 0.1 MG TAB PO PRN (00:02)
[2023-05-19 01:58] LABS: Glucose,Whole Blood 168 mg/dL (70-110)
[2023-05-19] MEDS: DIALYSIS (PERIT 1.5%) 2,000 ML 30 G/2,000 ML BAG INTRAPERIT SCH ×3 (05:11→18:49)
[2023-05-19 06:04] LABS: Glucose,Whole Blood 145 mg/dL (70-110)
[2023-05-19] MEDS: CALCIUM ACETATE 667 MG TAB PO SCH ×3 (06:30→18:34)
[2023-05-19] MEDS: carvediloL 12.5 MG TAB PO SCH ×2 (06:30→18:34)
[2023-05-19] MEDS: LACTULOSE 20 GM/30 ML CUP PO SCH ×3 (08:37→20:30)
[2023-05-19] MEDS: PREGABALIN 25 MG CAP PO SCH (08:49)
[2023-05-19] MEDS: PANTOPRAZOLE 40 MG/10 ML VIAL IVP SCH (08:49)
[2023-05-19] MEDS: amLODIPine 10 MG TAB PO SCH (08:49)
[2023-05-19] MEDS: hydrALAZINE HCL 25 MG TAB PO SCH ×3 (08:49→21:07)
[2023-05-19] MEDS: INSULIN DETEMIR (LEVEMIR) 100 UNIT/ML SYR SQ SCH (08:49)
[2023-05-19 08:52] LABS: African American GFR (CKD) 5 (>60 ml/min/1.73 sqM); Anion Gap 9 mmol/L; Blood Urea Nitrogen 63 mg/dL (9-20); Calcium 8.3 mg/dL (8.4-10.2); Carbon Dioxide 23 mmol/L (22-30); Chloride 91 mmol/L (98-107); Glucose 139 mg/dL (74-99); Non-African American GFR(CKD) 4 (>60 ml/min/1.73 sqM); Potassium 3.7 mmol/L (3.5-5.1); Sodium 123 mmol/L (137-145)
[2023-05-19 11:21] LABS: Glucose,Whole Blood 171 mg/dL (70-110)
--- NOTE | 2023-05-19 12:59 | P.PN ---
Subjective Patient is seen for follow-up for end-stage renal disease. He is currently maintained on peritoneal dialysis. He had issues with draining however this has improved after treatment with lactulose. Patient has had good effluent with 2-2.3 L Tolerating dialysis well. Sodium is 123 today. No significant complaints. Tolerating oral intake. Objective - Vital Signs Vital signs: Vital Signs Temp 97.8 F 05/19/23 12:11 Pulse 56 L 05/19/23 12:11 Resp 18 05/19/23 12:11 BP 172/83 05/19/23 12:11 Pulse Ox 97 05/19/23 12:11 FiO2 Intake & Output 05/18/23 05/19/23 05/19/23 18:59 06:59 18:59 Intake Total 358 600 0 Balance 358 600 0 Weight 74.8 kg Intake: Intake, IV Titration 600 Amount Sodium Chloride 0.9% 1, 600 000 ml @ 50 mls/hr IV . 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 - Labs CBC & Chem 7: 05/15/23 13:55 05/19/23 08:15 Labs: Abnormal Lab Results - Last 24 Hours (Table) 05/18/23 05/18/23 05/19/23 Range/Units 16:23 20:11 01:55 Sodium (137-145) mmol/L Chloride (98-107) mmol/L BUN (9-20) mg/dL Creatinine (0.66-1.25) mg/dL Glucose (74-99) mg/dL POC Glucose (mg/dL) 129 H 157 H 168 H (70-110) mg/dL Calcium (8.4-10.2) mg/dL 05/19/23 05/19/23 05/19/23 Range/Units 06:02 08:15 11:18 Sodium 123 L (137-145) mmol/L Chloride 91 L (98-107) mmol/L BUN 63 H (9-20) mg/dL Creatinine 9.98 H* (0.66-1.25) mg/dL Glucose 139 H (74-99) mg/dL POC Glucose (mg/dL) 145 H 171 H (70-110) mg/dL Calcium 8.3 L (8.4-10.2) mg/dL Assessment and Plan Assessment: 1. End-stage renal disease on peritoneal dialysis 2. Hypovolemic hyponatremia currently improved with normal saline. Patient is maintained on sodium chloride tab at home. 3. Diarrhea with nausea and vomiting, currently improved 4. Issues with draining noted this morning with peritoneal dialysis. X-ray shows catheter tip in lower pelvis which is appropriate. Status post lactulose for constipation. Good sffluent with PT currently. Tolerating exchanges very well. 5. CK D mineral bone disorder 6. Anemia status post packed RBCs transfusion recently as outpatient.. No active bleeding noted. Plan: Continue with current PD exchanges Sodium chloride tab DC normal saline Encourage increased oral intake particularly protein.
[2023-05-19] MEDS ORDERED: SODIUM CHLORIDE TAB 1 GM TAB PO STA (13:00)
[2023-05-19] MEDS ORDERED: PREGABALIN 25 MG CAP PO STA (14:11)
--- NOTE | 2023-05-19 14:21 | P.PN ---
Subjective Progress Note Date: 05/19/23 H&P Date: 05/16/23 Chief Complaint: Fatigue and diarrhea Ferdinand is a 78-year-old male well-known to the practice. He has known chronic hyponatremia, anemia of chronic kidney disease and end-stage renal disease on peritoneal dialysis. He presented emergency room with increased fatigue and weakness. His admission sodium was 117. Having ongoing diarrhea for several weeks. He is overall feeling poorly. Currently this a.m. patient reports first formed stool in several weeks. He denies any chest pains, pressures, shortness breath, nausea, or vomiting. He reports no irritation or redness near the peroneal dialysis catheter. He does complain of muscle twitching and spasm. He does report ongoing cough for the past week 05/17/2023 CAPD dialysate adjusted as per nephrology yesterday. Staff reports not draining, abdominal x-ray pending. Sodium improved up to 119. Continues on IV fluids and fluid restrictions. Denies chest pain, palpitations or shortness of breath. 05/18/2023 yesterday patient developed issues with not being able to drain post CAPD exchanges. Abdominal x-ray performed reporting placement of a midline catheter which curls within the lower pelvis, nonspecific abdomen. Last CAPD tx yesterday morning at 0600. Difficulty draining persists. Denies abdominal pain. Denies chest pain, palpitations or shortness of breath. Maintaining O2 sats in the high 90s on room air.Sodium increased to 121. BUN 68, creatinine 10.23. Nephrology discussing peritoneal dialysis. Complains of restless leg syndrome unrelieved by Requip that he has been on for years; changed over to Lyrica renal dose. 05/19/2023 maintained on lactulose, continues on CAPD with significant improvement in draining,2-3 L. Sodium up to 123, IV sodium discontinued, transition to oral sodium. Continues to have restless leg pain, mildly improved on Lyrica. Objective - Vital Signs Vital signs: Vital Signs Temp 97.8 F 05/19/23 12:11 Pulse 56 L 05/19/23 12:11 Resp 18 05/19/23 12:11 BP 172/83 05/19/23 12:11 Pulse Ox 97 05/19/23 12:11 FiO2 Intake & Output 05/18/23 05/19/23 05/19/23 18:59 06:59 18:59 Intake Total 358 600 0 Balance 358 600 0 Weight 74.8 kg Intake: Intake, IV Titration 600 Amount Sodium Chloride 0.9% 1, 600 000 ml @ 50 mls/hr IV . Q20H [facility] Rx#:[id number] Oral 358 0 Other: Voiding Method Toilet Toilet Urinal Urinal # Voids 1 # Bowel Movements 1 - Exam GENERAL: Alert and oriented 3, Sitting up in bed, no acute distress. HEENT: Normocephalic, pupils equal round and reactive to light, sclera anicteric, conjunctiva normal.MMM. NECK: Supple, no JVD. LUNGS: Unlabored, equal air entry, bilateral breath sounds clear. HEART: Regular rate and rhythm without , systolic ejection murmur ABDOMEN: Soft, nontender, normoactive bowel sounds. No guarding, no rebound. No masses appreciated. Peritoneal dialysis catheter present without irritation. EXTREMITIES: no pitting edema. No clubbing or cyanosis. NEUROLOGICAL: Cranial nerves II through XII grossly intact. No focal deficits. SKIN: Warm, Dry, no rashes or lesions noted. - Labs CBC & Chem 7: 05/15/23 13:55 05/19/23 08:15 Labs: Abnormal Lab Results - Last 24 Hours (Table) 05/18/23 05/18/23 05/19/23 Range/Units 16:23 20:11 01:55 Sodium (137-145) mmol/L Chloride (98-107) mmol/L BUN (9-20) mg/dL Creatinine (0.66-1.25) mg/dL Glucose (74-99) mg/dL POC Glucose (mg/dL) 129 H 157 H 168 H (70-110) mg/dL Calcium (8.4-10.2) mg/dL 05/19/23 05/19/23 05/19/23 Range/Units 06:02 08:15 11:18 Sodium 123 L (137-145) mmol/L Chloride 91 L (98-107) mmol/L BUN 63 H (9-20) mg/dL Creatinine 9.98 H* (0.66-1.25) mg/dL Glucose 139 H (74-99) mg/dL POC Glucose (mg/dL) 145 H 171 H (70-110) mg/dL Calcium 8.3 L (8.4-10.2) mg/dL Assessment and Plan Assessment: (1) Hyponatremia Current Visit: Yes Status: Acute Code(s): E87.1 - HYPO-OSMOLALITY AND HYPONATREMIA SNOMED Code(s): 13246448 (2) Dehydration Current Visit: Yes Status: Acute Code(s): E86.0 - DEHYDRATION SNOMED Code(s): 81296535 (3) Anemia Current Visit: Yes Status: Acute Code(s): D64.9 - ANEMIA, UNSPECIFIED SNOMED Code(s): 853268796 (4) ESRD on peritoneal dialysis Current Visit: No Status: Acute Code(s): N18.6 - END STAGE RENAL DISEASE; Z99.2 - DEPENDENCE ON RENAL DIALYSIS SNOMED Code(s): 142996061 (5) CAD (coronary artery disease) Current Visit: No Status: Acute Code(s): I25.10 - ATHSCL HEART DISEASE OF [place] CORONARY ARTERY W/O ANG PCTRS SNOMED Code(s): 13862263 (6) H/O four vessel coronary artery bypass graft Current Visit: No Status: Acute Code(s): Z95.1 - PRESENCE OF AORTOCORONARY BYPASS GRAFT SNOMED Code(s): 594262061 (7) Muscle twitching Current Visit: Yes Status: Acute Code(s): R25.3 - FASCICULATION SNOMED Code(s): 78594290 Plan: Continue on current medication regime ,monitoring and symptomatic treatment. Fluid restrictions maintained with IV fluid hydration discontinued, transitioned to oral sodium . Close monitoring of sodium, potassium, renal function with repeat labs ordered for a.m. discharge planning in progress for tomorrow pending continued improvement in sodium, pending final DC recommendations and clearance per nephrology. The impression and plan of care has been dictated as directed. : I performed a history and examination of this patient, discussed the same with the dictator. I agree with the dictator's note ,documented as a scribe. Any additional findings or plans will be noted.
[2023-05-19 16:17] LABS: Glucose,Whole Blood 181 mg/dL (70-110)
[2023-05-19] MEDS ORDERED: LIDOCAINE 1% INJ 10MG/ML (20 ML MDV) SQ ONE (18:27)
[2023-05-19 20:13] LABS: Glucose,Whole Blood 182 mg/dL (70-110)
[2023-05-19] MEDS: SODIUM CHLORIDE 0.9% 1,000 ML IV SCH (20:30)
[2023-05-19] MEDS: MIRTAZAPINE 15 MG PO SCH (20:31)
[2023-05-20] MEDS: DIALYSIS (PERIT 1.5%) 2,000 ML 30 G/2,000 ML BAG INTRAPERIT SCH ×3 (00:53→12:09)
[2023-05-20] MEDS: cloNIDine HCL 0.1 MG TAB PO PRN (01:54)
[2023-05-20 02:07] LABS: Glucose,Whole Blood 201 mg/dL (70-110)
[2023-05-20] MEDS: carvediloL 12.5 MG TAB PO SCH (06:11)
[2023-05-20] MEDS: CALCIUM ACETATE 667 MG TAB PO SCH ×2 (06:11→12:34)
[2023-05-20 06:20] LABS: Glucose,Whole Blood 199 mg/dL (70-110)
[2023-05-20] MEDS: PANTOPRAZOLE 40 MG/10 ML VIAL IVP SCH (08:34)
[2023-05-20] MEDS: amLODIPine 10 MG TAB PO SCH (08:34)
[2023-05-20] MEDS: INSULIN DETEMIR (LEVEMIR) 100 UNIT/ML SYR SQ SCH (08:35)
[2023-05-20] MEDS: LACTULOSE 20 GM/30 ML CUP PO SCH (08:35)
[2023-05-20] MEDS: hydrALAZINE HCL 25 MG TAB PO SCH (08:35)
[2023-05-20 08:53] VITALS: RESP 17
[2023-05-20] MEDS ORDERED: PREGABALIN 50 MG CAP PO SCH (09:00)
[2023-05-20 11:08] LABS: African American GFR (CKD) 5 (>60 ml/min/1.73 sqM); Anion Gap 8 mmol/L; Blood Urea Nitrogen 57 mg/dL (9-20); Calcium 7.9 mg/dL (8.4-10.2); Carbon Dioxide 25 mmol/L (22-30); Chloride 90 mmol/L (98-107); Glucose 162 mg/dL (74-99); Non-African American GFR(CKD) 5 (>60 ml/min/1.73 sqM); Potassium 3.7 mmol/L (3.5-5.1); Sodium 123 mmol/L (137-145)
[2023-05-20 11:42] LABS: Glucose,Whole Blood 174 mg/dL (70-110)
[2023-05-20 12:39] VITALS: BMI 26.6
[2023-05-20] MEDS ORDERED: SODIUM CHLORIDE TAB 1 GM TAB PO SCH (13:00)
--- NOTE | 2023-05-20 13:23 | P.PN ---
Subjective Patient is seen for follow-up for end-stage renal disease. He is currently maintained on peritoneal dialysis. He had issues with draining however this has improved after treatment with lactulose. Patient has had good effluent with 2-2.3 L Tolerating dialysis well. Sodium is 123 today. No significant complaints. Tolerating oral intake. Objective - Vital Signs Vital signs: Vital Signs Temp 98.4 F 05/20/23 11:45 Pulse 55 L 05/20/23 11:45 Resp 17 05/20/23 11:45 BP 136/74 05/20/23 11:45 Pulse Ox 98 05/20/23 11:45 FiO2 Intake & Output 05/19/23 05/20/23 05/20/23 18:59 06:59 18:59 Intake Total 1440 240 Balance 1440 240 Weight 74.8 kg Intake: Oral 1440 240 Other: Voiding Method Toilet Toilet Toilet Urinal Urinal Urinal # Voids 3 - Exam Awake, comfortable, no acute distress Examination of the heart S1 and S2 Examination of the lungs bilateral breath sounds are heard Abdomen is soft nontender Examination lower extremity shows no edema 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 - Labs CBC & Chem 7: 05/15/23 13:55 05/20/23 09:57 Labs: Abnormal Lab Results - Last 24 Hours (Table) 05/19/23 05/19/23 05/20/23 Range/Units 16:16 20:09 02:06 Sodium (137-145) mmol/L Chloride (98-107) mmol/L BUN (9-20) mg/dL Creatinine (0.66-1.25) mg/dL Glucose (74-99) mg/dL POC Glucose (mg/dL) 181 H 182 H 201 H (70-110) mg/dL Calcium (8.4-10.2) mg/dL 05/20/23 05/20/23 05/20/23 Range/Units 06:16 09:57 11:40 Sodium 123 L (137-145) mmol/L Chloride 90 L (98-107) mmol/L BUN 57 H (9-20) mg/dL Creatinine 9.61 H* (0.66-1.25) mg/dL Glucose 162 H (74-99) mg/dL POC Glucose (mg/dL) 199 H 174 H (70-110) mg/dL Calcium 7.9 L (8.4-10.2) mg/dL Assessment and Plan Assessment: 1. End-stage renal disease on peritoneal dialysis 2. Hypovolemic hyponatremia currently improved with normal saline. Patient is maintained on sodium chloride tab at home. 3. Diarrhea with nausea and vomiting, currently improved 4. Issues with draining noted this morning with peritoneal dialysis. X-ray shows catheter tip in lower pelvis which is appropriate. Status post lactulose for constipation. Good sffluent with PD currently. Tolerating exchanges very well. 5. CK D mineral bone disorder 6. Anemia status post packed RBCs transfusion recently as outpatient.. No active bleeding noted. Plan: Patient is stable for discharge from nephrology standpoint. Resume sodium chloride tab 1 g daily Follow-up as outpatient and repeat labs in about 1 week.
[2023-05-20 13:38] VITALS: BP 149/82; PULSE 66; TEMP 97.9
--- NOTE | 2023-05-21 12:49 | P.DS ---
Providers Date of admission: 05/15/23 15:10 Expected date of discharge: 05/20/23 Attending physician: Devon Wilson Consults: 05/15/23 20:26 Consult Physician Urgent Consulting Provider: Moi Garvin Consult Reason/Comments: CAPD Do you want consulting provider notified?: Already Contacted Primary care physician: [facility] Course: Final Diagnoses: Hyponatremia, hypovolemic, improved. Nausea, vomiting, diarrhea, improved Dehydration End-stage renal dialysis on peritoneal dialysis, with issues draining, corrected. Tolerating exchanges well now. Anemia of chronic disease Restless leg syndrome, Requip not working , Lyrica initiated. Hospital course:Ferdinand is a 78-year-old male well-known to the practice. He has known chronic hyponatremia, anemia of chronic kidney disease and end-stage renal disease on peritoneal dialysis. He presented emergency room with increased fatigue and weakness. His admission sodium was 117. Having ongoing diarrhea for several weeks. He is overall feeling poorly. Currently this a.m. patient reports first formed stool in several weeks. He denies any chest pains, pressures, shortness breath, nausea, or vomiting. He reports no irritation or redness near the peroneal dialysis catheter. He does complain of muscle twitching and spasm. He does report ongoing cough for the past week 05/17/2023 CAPD dialysate adjusted as per nephrology yesterday. Staff reports not draining, abdominal x-ray pending. Sodium improved up to 119. Continues on IV fluids and fluid restrictions. Denies chest pain, palpitations or shortness of breath. 05/18/2023 yesterday patient developed issues with not being able to drain post CAPD exchanges. Abdominal x-ray performed reporting placement of a midline catheter which curls within the lower pelvis, nonspecific abdomen. Last CAPD tx yesterday morning at 0600. Difficulty draining persists. Denies abdominal pain. Denies chest pain, palpitations or shortness of breath. Maintaining O2 sats in the high 90s on room air.Sodium increased to 121. BUN 68, creatinine 10.23. Nephrology discussing peritoneal dialysis. Complains of restless leg syndrome unrelieved by Requip that he has been on for years; changed over to Lyrica renal dose. 05/19/2023 maintained on lactulose, continues on CAPD with significant improvement in draining,2-3 L. Sodium up to 123, IV sodium discontinued, transition to oral sodium. Continues to have restless leg pain, mildly improved on Lyrica. Significant clinical improvement. Cleared by nephrology for discharge. Sodium 123, recommended sodium chloride tablets 1 g daily with fluid restrictions less than 2000 MLS per 24-hour. CAPD as recommended per nephrology. Denies chest pain, palpitations or shortness of breath. Patient will be discharged home today in stable condition with guarded prognosis. Repeat BMP in 3 days outpatient. The impression and plan of care has been dictated as directed. : I performed a history and examination of this patient, discussed the same with the dictator. I agree with the dictator's note ,documented as a scribe. Any additional findings or plans will be noted. Patient Condition at Discharge: Stable Plan - Discharge Summary Discharge Rx Participant: No New Discharge Prescriptions: New Lactulose [Cephulac] 30 gm PO TID #1800 ml guaiFENesin [Mucinex] 600 mg PO Q12HR PRN tab PRN Reason: Cough Pregabalin [Lyrica] 50 mg PO DAILY #3 cap Sodium Chloride Tab 1 gm PO DAILY #30 tablet Continue amLODIPine [Norvasc] 10 mg PO DAILY Insulin Glargine [Lantus Vial] 4 unit SQ DAILY hydrALAZINE HCL [Apresoline] 25 mg PO TID cloNIDine HCL 0.1 mg PO TID PRN PRN Reason: high bp Calcium Acetate [PhosLo] 1,334 mg PO TID-W/MEALS Calcium Acetate [PhosLo] 667 mg PO BID PRN PRN Reason: w/snacks carvediloL [Coreg] 25 mg PO BID Multivitamins, Thera [Multivitamin (formulary)] 1 tab PO DAILY Mirtazapine [Remeron Soluspan] 15 mg PO HS Discontinued rOPINIRole HCL [Requip] 0.25 mg PO HS Discharge Medication List Calcium Acetate [PhosLo] 1,334 mg PO TID-W/MEALS 09/02/21 [History] Calcium Acetate [PhosLo] 667 mg PO BID PRN 03/09/22 [History] Insulin Glargine [Lantus Vial] 4 unit SQ DAILY 07/28/22 [History] amLODIPine [Norvasc] 10 mg PO DAILY 07/28/22 [History] carvediloL [Coreg] 25 mg PO BID 07/28/22 [History] hydrALAZINE HCL [Apresoline] 25 mg PO TID 02/10/23 [History] Mirtazapine [Remeron Soluspan] 15 mg PO HS 05/15/23 [History] Multivitamins, Thera [Multivitamin (formulary)] 1 tab PO DAILY 05/15/23 [History] cloNIDine HCL 0.1 mg PO TID PRN 05/15/23 [History] Lactulose [Cephulac] 30 gm PO TID #1800 ml 05/20/23 [Rx] Pregabalin [Lyrica] 50 mg PO DAILY #3 cap 05/20/23 [Rx] Sodium Chloride Tab 1 gm PO DAILY #30 tablet 05/20/23 [Rx] guaiFENesin [Mucinex] 600 mg PO Q12HR PRN tab 05/20/23 [Rx] Follow up Appointment(s)/Referral(s): Monse Haro MD [STAFF PHYSICIAN] - 1 Week (pt. already has appt with Dr. Haro) Jerry Jara Jr, DO [Primary Care Provider] - 3 Days (May 25, 8:30) Ambulatory/Diagnostic Orders: Basic Metabolic Panel [LAB.AMB] Time Frame: 3 Days, Location: None Selected Patient Instructions/Handouts: Hyponatremia (DC), End Stage Kidney Disease (DC) Activity/Diet/Wound Care/Special Instructions: CAPD,as per Nephrology Fluid restrictions ledd than 2000ml/24hrs Discharge Disposition: TRANSFER TO SNF/ECF
== END 2023-05-20 13:36 | DRG 640 ==
LOC: EC 13:20 → 4SSUR 15:10 → 3SCARD 05-16 00:47
PROVIDERS: ADMIT Family Medicine; ATTEND Family Medicine
PROC: 3E1M39Z Irrigation of Peritoneal Cavity using Dialysate, Percutaneous Approach (ICD-10-PCS; principal; 2023-05-15)
DX: E87.1 Hypo-osmolality and hyponatremia (principal); N18.6 End stage renal disease; I12.0 Hypertensive chronic kidney disease with stage 5 chronic kidney disease or end stage renal disease; E86.1 Hypovolemia; D63.1 Anemia in chronic kidney disease; E86.0 Dehydration; R19.7 Diarrhea, unspecified; G25.81 Restless legs syndrome; I25.10 Atherosclerotic heart disease of native coronary artery without angina pectoris; K59.00 Constipation, unspecified; E83.9 Disorder of mineral metabolism, unspecified; E11.22 Type 2 diabetes mellitus with diabetic chronic kidney disease; Z79.899 Other long term (current) drug therapy; Z95.1 Presence of aortocoronary bypass graft; Z99.2 Dependence on renal dialysis; Z96.642 Presence of left artificial hip joint; Z91.040 Latex allergy status; Z28.310 Unvaccinated for COVID-19; Z71.3 Dietary counseling and surveillance; Z89.421 Acquired absence of other right toe(s)
CPT/HCPCS: 36415; 70450; 71046; 74019; 80048; 80053; 81001; 83605; 83735; 83930; 83935; 84295; 84484; 85025; 85610; 85730; 96374; 99285

== ENCOUNTER 2023-07-23 13:03 | Inpatient (IN) | payer MEDICARE ==
--- NOTE | 2023-07-23 13:41 | ED ---
Weakness HPI - General Chief complaint: Weakness Stated complaint: Dizziness,Weakness Time Seen by Provider: 07/23/23 13:19 Source: patient Mode of arrival: ambulatory Limitations: no limitations - History of Present Illness Initial comments: 78-year-old male with past medical history of end-stage renal disease on peritoneal dialysis who presents to the emergency department with weakness. is at bedside reports the history. States that he's been increasingly weak for 2 weeks. He hasn't been eating. Reports to loose watery stools. Denies any black or bloody stools. He has not taken any stool softeners. Denies any sick contacts. No fevers. No abdominal pain. He admits to a poor appetite. states he's had similar symptoms before when his sodium was low. He has not missed any of his dialysis exchanges. No other alleviating, precipitating or modifying factors - Related Data Home Medications Medication Instructions Recorded Confirmed Calcium Acetate [PhosLo] 1,334 mg PO TID-W/MEALS 09/02/21 07/23/23 Calcium Acetate [PhosLo] 667 mg PO BID PRN 03/09/22 07/23/23 Insulin Glargine [Lantus Vial] 4 unit SQ DAILY 07/28/22 07/23/23 amLODIPine [Norvasc] 10 mg PO DAILY 07/28/22 07/23/23 carvediloL [Coreg] 25 mg PO BID 07/28/22 07/23/23 Multivitamins, Thera [Multivitamin 1 tab PO DAILY 05/15/23 07/23/23 (formulary)] Lactulose [Cephulac] 30 gm PO BID 07/23/23 07/23/23 Ondansetron [Zofran] 4 mg PO Q8H PRN 07/23/23 07/23/23 Ubidecarenone [Co Q-10] 300 mg PO DAILY 07/23/23 07/23/23 Vitamin B Complex 1 cap PO DAILY 07/23/23 07/23/23 Vitamin D3 300mcg 1 tab PO DAILY 07/23/23 07/23/23 carvediloL [Coreg] 25 mg PO W/LUNCH PRN 07/23/23 07/23/23 ondansetron HCL [Zofran] 8 mg PO Q8H PRN 07/23/23 07/23/23 rOPINIRole HCL [Requip] 0.25 mg PO DAILY PRN 07/23/23 07/23/23 rOPINIRole HCL [Requip] 0.25 mg PO HS 07/23/23 07/23/23 Previous Rx's Medication Instructions Recorded Sodium Chloride Tab 1 gm PO DAILY #30 tablet 05/20/23 Allergies Allergy/AdvReac Type Severity Reaction Status Date / Time citric acid Allergy Rash/Hives Verified 07/23/23 15:17 with high doses latex Allergy Swelling, Verified 07/23/23 15:17 SKIN TURNED RED,BURNING, ITCHING losartan Allergy Cough Verified 07/23/23 15:17 hydrocodone [From [place]] AdvReac Hallucinati Verified 07/23/23 15:17 ons Review of Systems ROS Statement: Those systems with pertinent positive or pertinent negative responses have been documented in the HPI. ROS Other: All systems not noted in ROS Statement are negative. 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 Absent: scleral icterus, conjunctival injection, periorbital swelling ENT exam: Present: normal exam, mucous membranes dry Neck exam: Present: normal inspection. Absent: tenderness, meningismus, ly mphadenopathy Respiratory exam: Present: normal lung sounds bilaterally. Absent: respiratory distress, wheezes, rales, rhonchi, stridor Cardiovascular Exam: Present: regular rate, normal rhythm, normal heart sounds. Absent: systolic murmur, diastolic murmur, rubs, gallop, clicks GI/Abdominal exam: Present: soft, normal bowel sounds. Absent: distended, tenderness, guarding, rebound, rigid Extremities exam: Present: normal inspection, full ROM, normal capillary refill. Absent: tenderness, pedal edema, joint swelling, calf tenderness Back exam: Present: normal inspection Neurological exam: Present: alert, oriented X3, CN II-XII intact Psychiatric exam: Present: normal affect, normal mood Skin exam: Present: warm, dry, intact, normal color. Absent: rash Course Vital Signs 07/23/23 07/23/23 07/23/23 13:12 14:47 17:00 Temperature 98.2 F 98.2 F Pulse Rate 56 L 57 L 58 L Respiratory 22 18 16 Rate Blood Pressure 177/70 182/86 189/99 O2 Sat by Pulse 96 95 97 Oximetry Medical Decision Making - Medical Decision Making Was pt. sent in by a medical professional or institution (, PA, TILE ROOFER, urgent care, hospital, or halfway...) When possible be specific @ -No Did you speak to anyone other than the patient for history (EMS, parent, family, police, friend...)? What history was obtained from this source @ -I spoke with the for history Did you review nursing and triage notes (agree or disagree)? Why? @ -I reviewed and agree with nursing and triage notes Were old charts reviewed (outside hosp., previous admission, EMS record, old EKG, old radiological studies, urgent care reports/EKG's, halfway records)? Report findings @ -I reviewed patient's last discharge summary. Patient was hospitalized for hyponatremia due to hypovolemia Differential Diagnosis (chest pain, altered mental status, abdominal pain women, abdominal pain men, vaginal bleeding, weakness, fever, dyspnea, syncope, headache, dizziness, GI bleed, back pain, seizure, CVA, palpatations, mental health, musculoskeletal)? @ -Differential Weakness: Hypoglycemia, shock, sepsis, hyponatremia, anemia, infection, [place], ETOH, adverse medicine reaction, overdose, stroke, this is not meant to be an all-inclusive list. EKG interpreted by me (3pts min.). @ -Yes and demonstrates and bradycardia with a rate of 56. NE interval 263. QRS 96. QTC of 421. No acute ST segment elevations or depressions X-rays interpreted by me (1pt min.). @ -Yes and demonstrates some pulmonary vascular congestion CT interpreted by me (1pt min.). @ -None done U/S interpreted by me (1pt. min.). @ -None done What testing was considered but not performed or refused? (CT, X-rays, U/S, labs)? Why? @ -None What meds were considered but not given or refused? Why? @ -None Did you discuss the management of the patient with other professionals (professionals i.e. , PA, TILE ROOFER, lab, RT, psych nurse, 7th grade social studies teacher, service engine repairer, teacher, aviation tactical readiness officer, pillowcase maker)? Give summary @ -I spoke with Dr. Ocampo in regards to hyponatremia recommendations and d ialysis needs. Dr. Ocampo does recommend that the patient receive a fluid bolus followed by 50 mL/h with repeat sodium Was smoking cessation discussed for >3mins.? @ -No Was critical care preformed (if so, how long)? @ -No Were there social determinants of health that impacted care today? How? (Homelessness, low income, unemployed, alcoholism, drug addiction, transportation, low edu. Level, literacy, decrease access to med. care, snf, rehab)? @ -No Was there de-escalation of care discussed even if they declined (Discuss DNR or withdrawal of care, Hospice)? DNR status @ -No What co-morbidities impacted this encounter? (DM, HTN, Smoking, COPD, CAD, Cancer, CVA, ARF, Chemo, Hep., AIDS, mental health diagnosis, sleep apnea, morbid obesity)? @ -End-stage renal disease on peritoneal dialysis Was patient admitted / discharged? Hospital course, mention meds given and route, prescriptions, significant lab abnormalities, going to OR and other pertinent info. @ -Upon arrival patient was placed into room 1. Thorough history and physical exam was performed. IV access is established and laboratory studies were conducted. Patient does have a low sodium of 118. He does appear to be hypovolemic. I did give him a 1000 mL fluid bolus followed by 50 mL/h. Urine studies are ordered. I did discuss the case with Dr. Ocampo who does recommend fluid bolus as well as 50 mL per hour with a repeat sodium at 6. He will order the patient's dialysis. I spoke with Dr. Jara who agreed to admit the patient. Undiagnosed new problem with uncertain prognosis? @ -No Drug Therapy requiring intensive monitoring for toxicity (Heparin, Nitro, Insulin, Cardizem)? @ -No Were any procedures done? @ -No Diagnosis/symptom? @ -Acute hypovolemic hyponatremia, acute nausea, vomiting, diarrhea, end-stage renal disease on peritoneal dialysis Acute, or Chronic, or Acute on Chronic? @ -Acute Uncomplicated (without systemic symptoms) or Complicated (systemic symptoms)? @ -Complicated Side effects of treatment? @ -No Exacerbation, Progression, or Severe Exacerbation? @ -No Poses a threat to life or bodily function? How? (Chest pain, [place], [place], pneumonia, PE, COPD, DKA, ARF, appy, cholecystitis, CVA, Diverticulitis, Homicidal, Suicidal, threat to staff... and all critical care pts) @ -Yes, patient is severely hyponatremic which may be due to seizures - Lab Data Result diagrams: 07/23/23 13:52 07/23/23 20:59 Lab Results 07/23/23 07/23/23 07/23/23 Range/Units 13:52 13:52 13:52 WBC 6.7 (3.8-10.6) k/uL RBC 4.37 (4.30-5.90) m/uL Hgb 14.0 (13.0-17.5) gm/dL Hct 39.2 (39.0-53.0) % MCV 89.6 (80.0-100.0) fL MCH 32.1 (25.0-35.0) pg MCHC 35.9 (31.0-37.0) g/dL RDW 12.2 (11.5-15.5) % Plt Count 151 (150-450) k/uL MPV 8.3 Neutrophils % 73 % Lymphocytes % 9 % Monocytes % 8 % Eosinophils % 9 % Basophils % 0 % Neutrophils # 4.9 (1.3-7.7) k/uL Lymphocytes # 0.6 L (1.0-4.8) k/uL Monocytes # 0.5 (0-1.0) k/uL Eosinophils # 0.6 (0-0.7) k/uL Basophils # 0.0 (0-0.2) k/uL PT 9.8 (9.0-12.0) sec INR 0.9 (<1.2) APTT 25.9 (22.0-30.0) sec Sodium 118 L* (137-145) mmol/L Potassium 4.7 (3.5-5.1) mmol/L Chloride 84 L (98-107) mmol/L Carbon Dioxide 22 (22-30) mmol/L Anion Gap 12 mmol/L BUN 82 H (9-20) mg/dL Creatinine 8.48 H* (0.66-1.25) mg/dL Est GFR (CKD-EPI)AfAm 6 (>60 ml/min/1.73 sqM) Est GFR (CKD-EPI)NonAf 5 (>60 ml/min/1.73 sqM) Glucose 114 H (74-99) mg/dL Osmolality (280-301) mosm/kg Plasma Lactic Acid Bill (0.7-2.0) mmol/L Calcium 7.9 L (8.4-10.2) mg/dL Phosphorus 6.2 H (2.5-4.5) mg/dL Magnesium 2.5 H (1.6-2.3) mg/dL Total Bilirubin 0.5 (0.2-1.3) mg/dL AST 38 (17-59) U/L ALT 24 (4-49) U/L Alkaline Phosphatase 46 (38-126) U/L Troponin I (0.000-0.034) ng/mL NT-Pro-B Natriuret Pep 34986 pg/mL Total Protein 5.2 L (6.3-8.2) g/dL Albumin 2.9 L (3.5-5.0) g/dL 07/23/23 07/23/23 07/23/23 Range/Units 13:52 13:52 13:52 WBC (3.8-10.6) k/uL RBC (4.30-5.90) m/uL Hgb (13.0-17.5) gm/dL Hct (39.0-53.0) % MCV (80.0-100.0) fL MCH (25.0-35.0) pg MCHC (31.0-37.0) g/dL RDW (11.5-15.5) % Plt Count (150-450) k/uL MPV Neutrophils % % Lymphocytes % % Monocytes % % Eosinophils % % Basophils % % Neutrophils # (1.3-7.7) k/uL Lymphocytes # (1.0-4.8) k/uL Monocytes # (0-1.0) k/uL Eosinophils # (0-0.7) k/uL Basophils # (0-0.2) k/uL PT (9.0-12.0) sec INR (<1.2) APTT (22.0-30.0) sec Sodium (137-145) mmol/L Potassium (3.5-5.1) mmol/L Chloride (98-107) mmol/L Carbon Dioxide (22-30) mmol/L Anion Gap mmol/L BUN (9-20) mg/dL Creatinine (0.66-1.25) mg/dL Est GFR (CKD-EPI)AfAm (>60 ml/min/1.73 sqM) Est GFR (CKD-EPI)NonAf (>60 ml/min/1.73 sqM) Glucose (74-99) mg/dL Osmolality 277 L (280-301) mosm/kg Plasma Lactic Acid Bill 0.5 L (0.7-2.0) mmol/L Calcium (8.4-10.2) mg/dL Phosphorus (2.5-4.5) mg/dL Magnesium (1.6-2.3) mg/dL Total Bilirubin (0.2-1.3) mg/dL AST (17-59) U/L ALT (4-49) U/L Alkaline Phosphatase (38-126) U/L Troponin I 0.017 (0.000-0.034) ng/mL NT-Pro-B Natriuret Pep pg/mL Total Protein (6.3-8.2) g/dL Albumin (3.5-5.0) g/dL Disposition Clinical Impression: Nausea & vomiting, Weakness, Dehydration, Diarrhea, ESRD on peritoneal dialysis, Hyponatremia Disposition: ADMITTED IP TO THIS [facility] Condition: Stable Is patient prescribed a controlled substance at d/c from ED?: No Time of Disposition: 15:06
[2023-07-23 14:02] LABS: Basophils % (A) 0 %; Eosinophils # (A) 0.6 k/uL (0-0.7); Eosinophils % (A) 9 %; HCT 39.2 % (39.0-53.0); Lymphocytes # (A) 0.6 k/uL (1.0-4.8); Lymphocytes % (A) 9 %; MCH 32.1 pg (25.0-35.0); MCHC 35.9 g/dL (31.0-37.0); MCV 89.6 fL (80.0-100.0); Mean Platelet Volume 8.3; Monocytes # (A) 0.5 k/uL (0-1.0); Monocytes % (A) 8 %; Neutrophils # (A) 4.9 k/uL (1.3-7.7); Neutrophils % (A) 73 %; Platelet Count 151 k/uL (150-450); RBC 4.37 m/uL (4.30-5.90); RDW 12.2 % (11.5-15.5); WBC 6.7 k/uL (3.8-10.6)
--- NOTE | 2023-07-23 14:06 | XR ---
EXAMINATION TYPE: XR chest 2V DATE OF EXAM: 07/23/2023 COMPARISON: 05/15/2023 TECHNIQUE: PA and lateral views submitted. HISTORY: Shortness of breath FINDINGS: Emphysematous changes seen with median sternotomy changes, cardiomegaly and diffuse interstitial vivek sarah. There is no pneumothorax. Somewhat demineralized osseous structures. Hypertrophic and degenerati ve changes in the spine. Tiny bilateral pleural effusion. IMPRESSION: 1. COPD correlate for CHF otherwise consider interstitial pneumonitis
[2023-07-23 14:14] LABS: ALT 24 U/L (4-49); AST 38 U/L (17-59); African American GFR (CKD) 6 (>60 ml/min/1.73 sqM); Albumin 2.9 g/dL (3.5-5.0); Alkaline Phosphatase 46 U/L (38-126); Anion Gap 12 mmol/L; Blood Urea Nitrogen 82 mg/dL (9-20); Calcium 7.9 mg/dL (8.4-10.2); Carbon Dioxide 22 mmol/L (22-30); Chloride 84 mmol/L (98-107); Glucose 114 mg/dL (74-99); Magnesium 2.5 mg/dL (1.6-2.3); Non-African American GFR(CKD) 5 (>60 ml/min/1.73 sqM); Phosphorus 6.2 mg/dL (2.5-4.5); Total Bilirubin 0.5 mg/dL (0.2-1.3); Total Protein 5.2 g/dL (6.3-8.2)
[2023-07-23 14:15] LABS: Potassium 4.7 mmol/L (3.5-5.1); Sodium 118 mmol/L (137-145)
[2023-07-23 14:22] LABS: NT-Pro-B-Type Natriuretic Pept 21100 pg/mL
[2023-07-23 14:25] LABS: INR 0.9 (<1.2); Partial Thromboplastin Time 25.9 sec (22.0-30.0); Prothrombin Time 9.8 sec (9.0-12.0)
[2023-07-23] MEDS ORDERED: SODIUM CHLORIDE 0.9% 500 ML IV ONE (14:38)
[2023-07-23] MEDS ORDERED: SODIUM CHLORIDE 0.9% 1,000 ML IV ONE (14:38)
[2023-07-23] MEDS ORDERED: ACETAMINOPHEN TAB 500 MG TAB PO STA (14:51)
[2023-07-23] MEDS ORDERED: NALOXONE 0.4 MG/ML 1 ML VIAL IV PRN (15:21)
[2023-07-23] MEDS ORDERED: ONDANSETRON 4 MG TAB PO PRN (17:31)
[2023-07-23] MEDS ORDERED: CALCIUM ACETATE 667 MG TAB PO PRN (17:31)
[2023-07-23] MEDS ORDERED: carvediloL 12.5 MG TAB PO STA (17:49)
[2023-07-23] MEDS: DIALYSIS (PERIT 1.5%) 2,000 ML 30 G/2,000 ML BAG INTRAPERIT SCH (18:17)
[2023-07-23 20:07] LABS: Glucose,Whole Blood 141 mg/dL (70-110)
[2023-07-23] MEDS: minoxidiL 2.5 MG TAB PO SCH (20:30)
[2023-07-23] MEDS ORDERED: LACTULOSE 20 GM/30 ML CUP PO SCH (21:00)
[2023-07-23 21:49] LABS: ALT 24 U/L (4-49); AST 33 U/L (17-59); African American GFR (CKD) 6 (>60 ml/min/1.73 sqM); Albumin 2.9 g/dL (3.5-5.0); Alkaline Phosphatase 58 U/L (38-126); Anion Gap 11 mmol/L; Blood Urea Nitrogen 78 mg/dL (9-20); Calcium 7.7 mg/dL (8.4-10.2); Carbon Dioxide 24 mmol/L (22-30); Chloride 85 mmol/L (98-107); Glucose 135 mg/dL (74-99); Non-African American GFR(CKD) 5 (>60 ml/min/1.73 sqM); Potassium 4.6 mmol/L (3.5-5.1); Sodium 120 mmol/L (137-145); Total Bilirubin 0.3 mg/dL (0.2-1.3); Total Protein 5.1 g/dL (6.3-8.2)
[2023-07-23] MEDS: SODIUM CHLORIDE 0.9% 1,000 ML IV SCH (22:30)
[2023-07-24] MEDS: DIALYSIS (PERIT 1.5%) 2,000 ML 30 G/2,000 ML BAG INTRAPERIT SCH ×5 (00:01→23:18)
[2023-07-24] MEDS: ACETAMINOPHEN TAB 325 MG TAB PO PRN ×2 (00:17→07:46)
[2023-07-24] MEDS: carvediloL 12.5 MG TAB PO SCH ×2 (05:37→16:56)
[2023-07-24 06:18] LABS: Glucose,Whole Blood 146 mg/dL (70-110)
[2023-07-24] MEDS: CALCIUM ACETATE 667 MG TAB PO SCH ×3 (06:37→16:56)
[2023-07-24] MEDS: INSULIN DETEMIR (LEVEMIR) 100 UNIT/ML SYR SQ SCH (06:37)
[2023-07-24] MEDS: amLODIPine 10 MG TAB PO SCH (07:46)
[2023-07-24] MEDS: MULTIVITAMINS, THERA 1 EACH TAB PO SCH (07:46)
[2023-07-24] MEDS: SODIUM CHLORIDE TAB 1 GM TAB PO SCH (07:47)
[2023-07-24] MEDS: minoxidiL 2.5 MG TAB PO SCH ×2 (07:47→19:58)
[2023-07-24] MEDS: FOLIC ACID-VIT B COMPLEX-VIT C 1 CAP PO SCH (07:47)
[2023-07-24] MEDS: CHOLECALCIFEROL 10 MCG (400 IU) TABLET PO SCH (07:47)
[2023-07-24 08:58] LABS: Basophils % (A) 0 %; Eosinophils # (A) 0.6 k/uL (0-0.7); Eosinophils % (A) 10 %; HCT 37.6 % (39.0-53.0); HGB 12.9 gm/dL (13.0-17.5); Lymphocytes # (A) 0.6 k/uL (1.0-4.8); Lymphocytes % (A) 10 %; MCH 31.2 pg (25.0-35.0); MCHC 34.3 g/dL (31.0-37.0); MCV 91.1 fL (80.0-100.0); Mean Platelet Volume 8.6; Monocytes # (A) 0.5 k/uL (0-1.0); Monocytes % (A) 8 %; Neutrophils # (A) 4.3 k/uL (1.3-7.7); Neutrophils % (A) 70 %; Platelet Count 150 k/uL (150-450); RBC 4.13 m/uL (4.30-5.90); RDW 12.2 % (11.5-15.5); WBC 6.2 k/uL (3.8-10.6)
[2023-07-24 09:17] LABS: ALT 23 U/L (4-49); AST 29 U/L (17-59); African American GFR (CKD) 6 (>60 ml/min/1.73 sqM); Albumin 2.7 g/dL (3.5-5.0); Alkaline Phosphatase 51 U/L (38-126); Anion Gap 10 mmol/L; Blood Urea Nitrogen 73 mg/dL (9-20); Calcium 7.5 mg/dL (8.4-10.2); Carbon Dioxide 24 mmol/L (22-30); Chloride 87 mmol/L (98-107); Glucose 166 mg/dL (74-99); Magnesium 2.2 mg/dL (1.6-2.3); Non-African American GFR(CKD) 5 (>60 ml/min/1.73 sqM); Sodium 121 mmol/L (137-145); Total Bilirubin 0.4 mg/dL (0.2-1.3)
--- NOTE | 2023-07-24 10:58 | P.NPCON ---
History of Present Illness - Reason for Consult end stage renal disease, hyponatremia - History of Present Illness Reason for consultation: End-stage renal disease History of present illness: Patient is a 78-year-old male seen in renal consultation for end-stage renal disease. He is maintained on peritoneal dialysis. Patient came to the hospital due to vomiting and diarrhea going on for about 2 days. Patient states he's been drinking about 40 ounces of water daily in addition to coffee. He has not been eating much due to the vomiting and diarrhea. Patient states his symptoms are better now. Sodium was 118 on admission and he received a 500 mL bolus of normal saline and is currently maintained on normal saline at 50 mL an hour. Sodium level 121 this morning. Patient denies history of malignancy. Patient does have history of diabetes. Blood glucose controlled. No chest pain or shortness of breath. No edema. No problems with dialysis exchanges. Vital signs are stable. Blood pressure high. General: No acute distress. HEENT: Head exam is unremarkable. LUNGS: No audible rhonchi or wheezes. HEART: Rate and Rhythm are regular. ABDOMEN: Nontender. EXTREMITITES: No edema. 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, LEFT TOTAL HIP, BILATERAL CATARACT SURGERY WITH LENS IMPLANT Past Anesthesia/Blood Transfusion Reactions: No Reported Reaction Past Psychological History: No Psychological Hx Reported Smoking Status: Never smoker Past Alcohol Use History: None Reported Past Drug Use History: None Reported - Past Family History Mother Family Medical History: Cancer Father History Unknown: Yes Medications and Allergies Home Medications Medication Instructions Recorded Confirmed Type Calcium Acetate [PhosLo] 1,334 mg PO TID-W/MEALS 09/02/21 07/23/23 History Calcium Acetate [PhosLo] 667 mg PO BID PRN 03/09/22 07/23/23 History Insulin Glargine [Lantus Vial] 4 unit SQ DAILY 07/28/22 07/23/23 History amLODIPine [Norvasc] 10 mg PO DAILY 07/28/22 07/23/23 History carvediloL [Coreg] 25 mg PO BID 07/28/22 07/23/23 History Multivitamins, Thera [Multivitamin 1 tab PO DAILY 05/15/23 07/23/23 History (formulary)] Sodium Chloride Tab 1 gm PO DAILY #30 tablet 05/20/23 07/23/23 Rx Lactulose [Cephulac] 30 gm PO BID 07/23/23 07/23/23 History Ondansetron [Zofran] 4 mg PO Q8H PRN 07/23/23 07/23/23 History Ubidecarenone [Co Q-10] 300 mg PO DAILY 07/23/23 07/23/23 History Vitamin B Complex 1 cap PO DAILY 07/23/23 07/23/23 History Vitamin D3 300mcg 1 tab PO DAILY 07/23/23 07/23/23 History carvediloL [Coreg] 25 mg PO W/LUNCH PRN 07/23/23 07/23/23 History ondansetron HCL [Zofran] 8 mg PO Q8H PRN 07/23/23 07/23/23 History rOPINIRole HCL [Requip] 0.25 mg PO DAILY PRN 07/23/23 07/23/23 History rOPINIRole HCL [Requip] 0.25 mg PO HS 07/23/23 07/23/23 History Allergies Allergy/AdvReac Type Severity Reaction Status Date / Time citric acid Allergy Rash/Hives Verified 07/23/23 15:17 with high doses latex Allergy Swelling, Verified 07/23/23 15:17 SKIN TURNED RED,BURNING, ITCHING losartan Allergy Cough Verified 07/23/23 15:17 hydrocodone [From [place]] AdvReac Hallucinati Verified 07/23/23 15:17 ons Physical Exam Vitals: Vital Signs Temp Pulse Pulse Resp BP BP Pulse Ox 07/24/23 07:35 97.7 F 58 L 16 193/75 96 07/24/23 06:16 98.5 F 60 18 195/85 95 07/24/23 03:12 98.3 F 60 16 170/69 94 L 07/24/23 01:17 178/74 07/24/23 00:56 62 18 181/66 93 L 07/23/23 23:30 98.3 F 58 L 16 177/73 95 07/23/23 20:00 97.6 F 56 L 16 181/74 95 07/23/23 17:48 97.9 F 59 L 18 194/92 94 L 07/23/23 17:00 98.2 F 58 L 16 189/99 97 07/23/23 14:47 57 L 18 182/86 95 07/23/23 13:12 98.2 F 56 L 22 177/70 96 Intake and Output 07/23/23 07/24/23 07/24/23 22:59 06:59 14:59 Intake Total 240 Balance 240 Intake: Oral 240 Other: Voiding Method Toilet Urinal Weight 69.853 kg 77.9 kg Results - Lab Results Most recent lab results Calcium 7.5 mg/dL (8.4-10.2) L 07/24/23 08:26 Phosphorus 6.2 mg/dL (2.5-4.5) H 07/23/23 13:52 Magnesium 2.2 mg/dL (1.6-2.3) 07/24/23 08:26 07/24/23 08:26 07/24/23 08:26 Assessment and Plan Plan: Assessment: 1. End-stage renal disease maintained on peritoneal dialysis. 2. Hypovolemic hyponatremia improving with normal saline. 3. Hypertension with chronic any disease. 4. Diabetes mellitus. 5. Chronic kidney disease mineral bone disease maintained on PhosLo. 6. Vomiting and diarrhea. Improved. Plan: Maintain normal saline. Add hydralazine. Hold for systolic blood pressure less than 120. Maintain current PD exchanges with 1.5% dextrose solution. PTH related peptide noted to be elevated in July 2022. Oncology consulted. Add 1200 mL fluid restriction. Encourage oral intake. Repeat sodium level this evening. Thank you for the consultation. I will continue to follow the patient with you during his hospital stay.
[2023-07-24] MEDS ORDERED: hydrALAZINE HCL 50 MG TAB PO SCH (11:15)
[2023-07-24 11:41] LABS: Glucose,Whole Blood 137 mg/dL (70-110)
[2023-07-24] MEDS: ACETAMINOPHEN TAB 500 MG TAB PO PRN (12:09)
--- NOTE | 2023-07-24 14:54 | P.HPIM ---
History of Present Illness H&P Date: 07/24/23 Chief Complaint: complains of malaise, fatigue 78-year-old male well known to the practice long-standing history of end-stage renal disease currently on peritoneal dialysis at home experienced 2 days of nausea vomiting with loose stool, patient showed him to be evaluated at [facility] emergency room and was found to be hyponatremic with a sodium of 118, other complaints included just weakness,malaise, fatigue Review of Systems Constitutional: Reports chronic pain, Reports fatigue, Reports malaise, Reports weakness Ears, nose, mouth and throat: Reports as per HPI Cardiovascular: Reports as per HPI Respiratory: Reports as per HPI Gastrointestinal: Reports as per HPI Genitourinary: Reports as per HPI (left shoulder tenderness) Musculoskeletal: Reports as per HPI Integumentary: Reports as per HPI Neurological: Reports as per HPI Psychiatric: Reports as per HPI Endocrine: Reports as per HPI Hematologic/Lymphatic: Reports as per HPI Allergic/Immunologic: Reports as per HPI 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, LEFT TOTAL HIP, BILATERAL CATARACT SURGERY WITH LENS IMPLANT Past Anesthesia/Blood Transfusion Reactions: No Reported Reaction Past Psychological History: No Psychological Hx Reported Smoking Status: Never smoker Past Alcohol Use History: None Reported Past Drug Use History: None Reported - Past Family History Mother Family Medical History: Cancer Father History Unknown: Yes Medications and Allergies Home Medications Medication Instructions Recorded Confirmed Type RX: Calcium Acetate [PhosLo] 1,334 mg PO TID-W/MEALS 09/02/21 07/23/23 History RX: Calcium Acetate [PhosLo] 667 mg PO BID PRN 03/09/22 07/23/23 History RX: Insulin Glargine [Lantus Vial] 4 unit SQ DAILY 07/28/22 07/23/23 History RX: amLODIPine [Norvasc] 10 mg PO DAILY 07/28/22 07/23/23 History RX: carvediloL [Coreg] 25 mg PO BID 07/28/22 07/23/23 History RX: Multivitamins, Thera 1 tab PO DAILY 05/15/23 07/23/23 History [Multivitamin (formulary)] RX: Sodium Chloride Tab 1 gm PO DAILY #30 tablet 05/20/23 07/23/23 Rx Ondansetron [Zofran] 4 mg PO Q8H PRN 07/23/23 07/23/23 History RX: Lactulose [Cephulac] 30 gm PO BID 07/23/23 07/23/23 History RX: Vitamin B Complex 1 cap PO DAILY 07/23/23 07/23/23 History Ubidecarenone [Co Q-10] 300 mg PO DAILY 07/23/23 07/23/23 History Vitamin D3 300mcg 1 tab PO DAILY 07/23/23 07/23/23 History carvediloL [Coreg] 25 mg PO W/LUNCH PRN 07/23/23 07/23/23 History ondansetron HCL [Zofran] 8 mg PO Q8H PRN 07/23/23 07/23/23 History rOPINIRole HCL [Requip] 0.25 mg PO DAILY PRN 07/23/23 07/23/23 History rOPINIRole HCL [Requip] 0.25 mg PO HS 07/23/23 07/23/23 History Allergies Allergy/AdvReac Type Severity Reaction Status Date / Time citric acid Allergy Rash/Hives Verified 07/23/23 15:17 with high doses latex Allergy Swelling, Verified 07/23/23 15:17 SKIN TURNED RED,BURNING, ITCHING losartan Allergy Cough Verified 07/23/23 15:17 hydrocodone [From [place]] AdvReac Hallucinati Verified 07/23/23 15:17 ons Physical Exam Osteopathic Statement: *. No significant issues noted on an osteopathic structural exam other than those noted in the History and Physical/Consult. Vitals: Vital Signs Temp Pulse Pulse Pulse Pulse Pulse Resp 07/24/23 14:27 66 66 64 07/24/23 13:48 57 L 07/24/23 12:34 97.9 F 58 L 16 07/24/23 11:04 57 L 16 07/24/23 07:35 97.7 F 58 L 16 07/24/23 06:16 98.5 F 60 18 07/24/23 03:12 98.3 F 60 16 07/24/23 01:17 07/24/23 00:56 62 18 07/23/23 23:30 98.3 F 58 L 16 07/23/23 20:00 97.6 F 56 L 16 07/23/23 17:48 97.9 F 59 L 18 07/23/23 17:00 98.2 F 58 L 16 07/23/23 14:47 57 L 18 BP BP BP BP BP Pulse Ox 07/24/23 14:27 190/82 186/78 185/75 07/24/23 13:48 07/24/23 12:34 176/83 98 07/24/23 11:04 184/83 98 07/24/23 07:35 193/75 96 07/24/23 06:16 195/85 95 07/24/23 03:12 170/69 94 L 07/24/23 01:17 178/74 07/24/23 00:56 181/66 93 L 07/23/23 23:30 177/73 95 07/23/23 20:00 181/74 95 07/23/23 17:48 194/92 94 L 07/23/23 17:00 189/99 97 07/23/23 14:47 182/86 95 Intake and Output 07/23/23 07/24/23 07/24/23 22:59 06:59 14:59 Intake Total 240 Output Total 25 Balance 215 Intake: Oral 240 Output: Urine 25 Other: Voiding Method Toilet Urinal Weight 69.853 kg 77.9 kg General: [Patient awake, alert and oriented times 3. Patient in no acute distress.] HEENT: [PERRL. EOMI. No pharyngeal erythema or exudate.] Neck: [No adenopathy.] Cardiac: [Heart regular in rate and rhythm. No S3. No S4. No clicks, rubs. No murmur.] Lungs: [Clear to auscultation bilaterally.] Abdomen: [No mass. No organomegaly. Bowel sounds presnt and normoactive in all 4 quadrants.] Extremes: [No edema no cyanosis no claudication normal pulses,left shoulder aching tenderness : normal male genitalia Musculoskeletal: [No joint erythema, edema or tenderness.] Skin: [No rash.] Neurologic: [No lateralizing deficits. CN II - XII grossly intact.] Lymphatic: [No adenopathy.] Results CBC & Chem 7: 07/24/23 08:26 07/24/23 08:26 Labs: Abnormal Lab Results - Last 24 Hours (Table) 07/23/23 07/23/23 07/23/23 Range/Units 13:52 20:06 20:59 RBC (4.30-5.90) m/uL Hgb (13.0-17.5) gm/dL Hct (39.0-53.0) % Lymphocytes # (1.0-4.8) k/uL Sodium 120 L (137-145) mmol/L Chloride 85 L (98-107) mmol/L BUN 78 H (9-20) mg/dL Creatinine 8.65 H* (0.66-1.25) mg/dL Glucose 135 H (74-99) mg/dL POC Glucose (mg/dL) 141 H (70-110) mg/dL Osmolality 277 L (280-301) mosm/kg Calcium 7.7 L (8.4-10.2) mg/dL Total Protein 5.1 L (6.3-8.2) g/dL Albumin 2.9 L (3.5-5.0) g/dL Ur Random Sodium (40-220) mmol/L 07/23/23 07/24/23 07/24/23 Range/Units 22:02 06:16 08:26 RBC 4.13 L (4.30-5.90) m/uL Hgb 12.9 L (13.0-17.5) gm/dL Hct 37.6 L (39.0-53.0) % Lymphocytes # 0.6 L (1.0-4.8) k/uL Sodium (137-145) mmol/L Chloride (98-107) mmol/L BUN (9-20) mg/dL Creatinine (0.66-1.25) mg/dL Glucose (74-99) mg/dL POC Glucose (mg/dL) 146 H (70-110) mg/dL Osmolality (280-301) mosm/kg Calcium (8.4-10.2) mg/dL Total Protein (6.3-8.2) g/dL Albumin (3.5-5.0) g/dL Ur Random Sodium 29 L (40-220) mmol/L 07/24/23 07/24/23 Range/Units 08:26 11:40 RBC (4.30-5.90) m/uL Hgb (13.0-17.5) gm/dL Hct (39.0-53.0) % Lymphocytes # (1.0-4.8) k/uL Sodium 121 L (137-145) mmol/L Chloride 87 L (98-107) mmol/L BUN 73 H (9-20) mg/dL Creatinine 8.54 H* (0.66-1.25) mg/dL Glucose 166 H (74-99) mg/dL POC Glucose (mg/dL) 137 H (70-110) mg/dL Osmolality (280-301) mosm/kg Calcium 7.5 L (8.4-10.2) mg/dL Total Protein 5.0 L (6.3-8.2) g/dL Albumin 2.7 L (3.5-5.0) g/dL Ur Random Sodium (40-220) mmol/L Thrombosis Risk Factor Assmnt - DVT/VTE Prophylaxis DVT/VTE Prophylaxis: Pharmacologic Prophylaxis ordered Assessment and Plan (1) Dehydration Current Visit: Yes Status: Acute Code(s): E86.0 - DEHYDRATION SNOMED Code(s): 60508819 (2) Diarrhea Current Visit: Yes Status: Acute Code(s): R19.7 - DIARRHEA, UNSPECIFIED SNOMED Code(s): 68217934 (3) ESRD on peritoneal dialysis Current Visit: Yes Status: Acute Code(s): N18.6 - END STAGE RENAL DISEASE; Z99.2 - DEPENDENCE ON RENAL DIALYSIS SNOMED Code(s): 520257281 (4) Hyponatremia Current Visit: Yes Status: Acute Code(s): E87.1 - HYPO-OSMOLALITY AND HYPONATREMIA SNOMED Code(s): 53677188 (5) Nausea & vomiting Current Visit: Yes Status: Acute Code(s): R11.2 - NAUSEA WITH VOMITING, UNSPECIFIED SNOMED Code(s): 41207457 (6) Weakness Current Visit: Yes Status: Acute Code(s): R53.1 - WEAKNESS SNOMED Code(s): 34538091 (7) Abdominal pain Current Visit: No Status: Acute Code(s): R10.9 - UNSPECIFIED ABDOMINAL PAIN SNOMED Code(s): 98013376 (8) Anemia Current Visit: No Status: Acute Code(s): D64.9 - ANEMIA, UNSPECIFIED SNOMED Code(s): 960696912 (9) CAD (coronary artery disease) Current Visit: No Status: Acute Code(s): I25.10 - ATHSCL HEART DISEASE OF [place] CORONARY ARTERY W/O ANG PCTRS SNOMED Code(s): 06961913 (10) ESRD (end stage renal disease) Current Visit: No Status: Acute Code(s): N18.6 - END STAGE RENAL DISEASE SNOMED Code(s): 40869504 Plan: end-stage renal disease Hyponatremia Nausea vomiting diarrhea Patient admitted to the hospital Nephrology consultation IV fluids\rehydration Fluid restriction Continue to follow closely his sodium improves will discharge patient home accordingly Time with Patient: Greater than 30
[2023-07-24 16:40] LABS: Glucose,Whole Blood 101 mg/dL (70-110)
[2023-07-24 20:23] LABS: Glucose,Whole Blood 136 mg/dL (70-110)
--- NOTE | 2023-07-24 20:39 | P.CONS ---
History of Present Illness - Reason for Consult Consult date: 07/24/23 Elevated PTH-rp Requesting physician: Aman Ocampo - Chief Complaint Dizzy, weak - History of Present Illness Mr. Renner is a 78 yo male with a PMH of ESRD on peritoneal dialysis, DM, hyponatremia, RLS, HTN and peripheral vascular disease currently admitted for N,V,D that had been going of for a few days prior to admit. Na+ was 118 on admit, 122 today. He has been seen by Nephrology. We have been consulted for elevated PTH-rp, 30 pg/ml on 07/29. Corrected Ca++ is 8.5, LDH slightly elevated at 640. TSH slightly elevated with normal T4. Pt denies personal Hx of malignancy, he had colonoscopy about 20 years ago, not sure if he had a recent PSA. His appetite changed when he started peritoneal dialysis, when his sodium is low he does not eat well either. Denied sweats, new or unusual MS pain, smoked many years ago, no acute changes in bowel habits, black or bloody stool. He had CT brain 05/15/23 without contrast that neg for a malignant process, he has a CT AP 02/10/23 that did not report any LAD or masses. Review of Systems 10 point ROS is neg except as stated in HPI Past Medical History Past Medical History: Coronary Artery Disease (CAD), Diabetes Mellitus, Dialysis, Hypertension, Renal Disease Additional Past Medical History / Comment(s): PERITONEAL DIALYSIS - -4 TIMES DAILY , POOR CIRCULATION IN LOWER LEGS History of Any Multi-Drug Resistant Organisms: None Reported Year Discovered:: 09/03/21 MDRO Source:: ESBL PERITONEAL FLUID Past Surgical History: Coronary Bypass/CABG, Heart Catheterization, Joint Replacement Additional Past Surgical History / Comment(s): 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, LEFT TOTAL HIP, BILATERAL CATARACT SURGERY WITH LENS IMPLANT Past Anesthesia/Blood Transfusion Reactions: No Reported Reaction Past Psychological History: No Psychological Hx Reported Smoking Status: Never smoker Past Alcohol Use History: None Reported Past Drug Use History: None Reported - Past Family History Mother Family Medical History: Cancer Father History Unknown: Yes Medications and Allergies Home Medications Medication Instructions Recorded Confirmed Type Calcium Acetate [PhosLo] 1,334 mg PO TID-W/MEALS 09/02/21 07/23/23 History Calcium Acetate [PhosLo] 667 mg PO BID PRN 03/09/22 07/23/23 History Insulin Glargine [Lantus Vial] 4 unit SQ DAILY 07/28/22 07/23/23 History amLODIPine [Norvasc] 10 mg PO DAILY 07/28/22 07/23/23 History carvediloL [Coreg] 25 mg PO BID 07/28/22 07/23/23 History Multivitamins, Thera [Multivitamin 1 tab PO DAILY 05/15/23 07/23/23 History (formulary)] Sodium Chloride Tab 1 gm PO DAILY #30 tablet 05/20/23 07/23/23 Rx Lactulose [Cephulac] 30 gm PO BID 07/23/23 07/23/23 History Ondansetron [Zofran] 4 mg PO Q8H PRN 07/23/23 07/23/23 History Ubidecarenone [Co Q-10] 300 mg PO DAILY 07/23/23 07/23/23 History Vitamin B Complex 1 cap PO DAILY 07/23/23 07/23/23 History Vitamin D3 300mcg 1 tab PO DAILY 07/23/23 07/23/23 History carvediloL [Coreg] 25 mg PO W/LUNCH PRN 07/23/23 07/23/23 History ondansetron HCL [Zofran] 8 mg PO Q8H PRN 07/23/23 07/23/23 History rOPINIRole HCL [Requip] 0.25 mg PO DAILY PRN 07/23/23 07/23/23 History rOPINIRole HCL [Requip] 0.25 mg PO HS 07/23/23 07/23/23 History Allergies Allergy/AdvReac Type Severity Reaction Status Date / Time citric acid Allergy Rash/Hives Verified 07/23/23 15:17 with high doses latex Allergy Swelling, Verified 07/23/23 15:17 SKIN TURNED RED,BURNING, ITCHING losartan Allergy Cough Verified 07/23/23 15:17 hydrocodone [From [place]] AdvReac Hallucinati Verified 07/23/23 15:17 ons Physical Exam Vitals: Vital Signs Temp Pulse Pulse Resp BP BP Pulse Ox 07/24/23 11:04 57 L 16 184/83 98 07/24/23 07:35 97.7 F 58 L 16 193/75 96 07/24/23 06:16 98.5 F 60 18 195/85 95 07/24/23 03:12 98.3 F 60 16 170/69 94 L 07/24/23 01:17 178/74 07/24/23 00:56 62 18 181/66 93 L 07/23/23 23:30 98.3 F 58 L 16 177/73 95 07/23/23 20:00 97.6 F 56 L 16 181/74 95 07/23/23 17:48 97.9 F 59 L 18 194/92 94 L 07/23/23 17:00 98.2 F 58 L 16 189/99 97 07/23/23 14:47 57 L 18 182/86 95 07/23/23 13:12 98.2 F 56 L 22 177/70 96 Intake and Output 07/23/23 07/24/23 07/24/23 22:59 06:59 14:59 Intake Total 240 Output Total 25 Balance 215 Intake: Oral 240 Output: Urine 25 Other: Voiding Method Toilet Urinal Weight 69.853 kg 77.9 kg - Constitutional General appearance: average body habitus, cooperative, no acute distress - EENT Eyes: anicteric sclerae, EOMI ENT: hearing grossly normal, normal oropharynx - Neck Neck: no lymphadenopathy - Respiratory Respiratory: bilateral: CTA - Cardiovascular Rhythm: regular Heart sounds: normal: S1, S2 Abnormal Heart Sounds: systolic murmur - Gastrointestinal General gastrointestinal: no absent bowel sounds, no decreased bowel sounds, distended, no hepatomegaly, no hyperactive bowel sounds, normal bowel sounds, no organomegaly, no rigid, no scaphoid, soft, no splenomegaly, no tenderness, no umbilical hernia, no ventral hernia - Integumentary Integumentary: normal - Neurologic Neurologic: CNII-XII intact - Musculoskeletal Musculoskeletal: generalized weakness, strength equal bilaterally - Psychiatric Psychiatric: A&O x's 3, appropriate affect, intact judgment & insight Results CBC & Chem 7: 07/24/23 08:26 07/24/23 15:57 Labs: Abnormal Lab Results - Last 24 Hours (Table) 07/23/23 07/23/23 07/23/23 Range/Units 13:52 13:52 13:52 RBC (4.30-5.90) m/uL Hgb (13.0-17.5) gm/dL Hct (39.0-53.0) % Lymphocytes # 0.6 L (1.0-4.8) k/uL Sodium 118 L* (137-145) mmol/L Chloride 84 L (98-107) mmol/L BUN 82 H (9-20) mg/dL Creatinine 8.48 H* (0.66-1.25) mg/dL Glucose 114 H (74-99) mg/dL POC Glucose (mg/dL) (70-110) mg/dL Osmolality (280-301) mosm/kg Plasma Lactic Acid Bill 0.5 L (0.7-2.0) mmol/L Calcium 7.9 L (8.4-10.2) mg/dL Phosphorus 6.2 H (2.5-4.5) mg/dL Magnesium 2.5 H (1.6-2.3) mg/dL Total Protein 5.2 L (6.3-8.2) g/dL Albumin 2.9 L (3.5-5.0) g/dL Ur Random Sodium (40-220) mmol/L 07/23/23 07/23/23 07/23/23 Range/Units 13:52 20:06 20:59 RBC (4.30-5.90) m/uL Hgb (13.0-17.5) gm/dL Hct (39.0-53.0) % Lymphocytes # (1.0-4.8) k/uL Sodium 120 L (137-145) mmol/L Chloride 85 L (98-107) mmol/L BUN 78 H (9-20) mg/dL Creatinine 8.65 H* (0.66-1.25) mg/dL Glucose 135 H (74-99) mg/dL POC Glucose (mg/dL) 141 H (70-110) mg/dL Osmolality 277 L (280-301) mosm/kg Plasma Lactic Acid Bill (0.7-2.0) mmol/L Calcium 7.7 L (8.4-10.2) mg/dL Phosphorus (2.5-4.5) mg/dL Magnesium (1.6-2.3) mg/dL Total Protein 5.1 L (6.3-8.2) g/dL Albumin 2.9 L (3.5-5.0) g/dL Ur Random Sodium (40-220) mmol/L 07/23/23 07/24/23 07/24/23 Range/Units 22:02 06:16 08:26 RBC 4.13 L (4.30-5.90) m/uL Hgb 12.9 L (13.0-17.5) gm/dL Hct 37.6 L (39.0-53.0) % Lymphocytes # 0.6 L (1.0-4.8) k/uL Sodium (137-145) mmol/L Chloride (98-107) mmol/L BUN (9-20) mg/dL Creatinine (0.66-1.25) mg/dL Glucose (74-99) mg/dL POC Glucose (mg/dL) 146 H (70-110) mg/dL Osmolality (280-301) mosm/kg Plasma Lactic Acid Bill (0.7-2.0) mmol/L Calcium (8.4-10.2) mg/dL Phosphorus (2.5-4.5) mg/dL Magnesium (1.6-2.3) mg/dL Total Protein (6.3-8.2) g/dL Albumin (3.5-5.0) g/dL Ur Random Sodium 29 L (40-220) mmol/L 07/24/23 07/24/23 Range/Units 08:26 11:40 RBC (4.30-5.90) m/uL Hgb (13.0-17.5) gm/dL Hct (39.0-53.0) % Lymphocytes # (1.0-4.8) k/uL Sodium 121 L (137-145) mmol/L Chloride 87 L (98-107) mmol/L BUN 73 H (9-20) mg/dL Creatinine 8.54 H* (0.66-1.25) mg/dL Glucose 166 H (74-99) mg/dL POC Glucose (mg/dL) 137 H (70-110) mg/dL Osmolality (280-301) mosm/kg Plasma Lactic Acid Bill (0.7-2.0) mmol/L Calcium 7.5 L (8.4-10.2) mg/dL Phosphorus (2.5-4.5) mg/dL Magnesium (1.6-2.3) mg/dL Total Protein 5.0 L (6.3-8.2) g/dL Albumin 2.7 L (3.5-5.0) g/dL Ur Random Sodium (40-220) mmol/L CT scan - abdomen: report reviewed CT Scan - head: report reviewed CT scan - pelvis: report reviewed Assessment and Plan (1) Elevated PTHrP level Narrative/Plan: -Corrected calcium is normal 8.5. Not certain if this is because of dialysis and the level would be high if the pt were not on dialysis -LDH slightly elevated, alk phos WNL -PSA ordered -PTH and vit D 1,25 ordered. -May consider CT chest and US of the kidneys -Will f/u Current Visit: Yes Status: Acute Priority: Medium Code(s): R79.89 - OTHER SPECIFIED ABNORMAL FINDINGS OF BLOOD CHEMISTRY SNOMED Code(s): 392735591
[2023-07-25] MEDS: ACETAMINOPHEN TAB 500 MG TAB PO PRN ×2 (02:56→11:00)
[2023-07-25] MEDS: DIALYSIS (PERIT 1.5%) 2,000 ML 30 G/2,000 ML BAG INTRAPERIT SCH ×2 (05:31→11:51)
[2023-07-25 06:14] LABS: Glucose,Whole Blood 117 mg/dL (70-110)
[2023-07-25] MEDS: CALCIUM ACETATE 667 MG TAB PO SCH ×2 (06:16→11:34)
[2023-07-25] MEDS: carvediloL 12.5 MG TAB PO SCH (06:16)
[2023-07-25] MEDS: FOLIC ACID-VIT B COMPLEX-VIT C 1 CAP PO SCH (07:28)
[2023-07-25] MEDS: SODIUM CHLORIDE 0.9% 1,000 ML IV SCH (07:28)
[2023-07-25] MEDS: amLODIPine 10 MG TAB PO SCH (07:28)
[2023-07-25] MEDS: MULTIVITAMINS, THERA 1 EACH TAB PO SCH (07:28)
[2023-07-25] MEDS: minoxidiL 2.5 MG TAB PO SCH (07:29)
[2023-07-25] MEDS: CHOLECALCIFEROL 10 MCG (400 IU) TABLET PO SCH (07:29)
[2023-07-25] MEDS: SODIUM CHLORIDE TAB 1 GM TAB PO SCH (07:29)
[2023-07-25] MEDS: INSULIN DETEMIR (LEVEMIR) 100 UNIT/ML SYR SQ SCH (07:29)
[2023-07-25 07:41] VITALS: RESP 20
[2023-07-25 10:15] LABS: African American GFR (CKD) 7 (>60 ml/min/1.73 sqM); Anion Gap 12 mmol/L; Blood Urea Nitrogen 69 mg/dL (9-20); Calcium 7.7 mg/dL (8.4-10.2); Carbon Dioxide 22 mmol/L (22-30); Chloride 90 mmol/L (98-107); Glucose 142 mg/dL (74-99); Magnesium 2.2 mg/dL (1.6-2.3); Non-African American GFR(CKD) 6 (>60 ml/min/1.73 sqM); Potassium 3.9 mmol/L (3.5-5.1); Sodium 124 mmol/L (137-145)
--- NOTE | 2023-07-25 10:23 | P.PN ---
Subjective Patient is seen in follow-up for end-stage renal disease and hyponatremia. Sodium level 122 as of yesterday afternoon. On IV fluids. No problems with dialysis exchanges. No vomiting or diarrhea. Vigns are stable. Gene no acute distress. HEENT: Head exam is unremarkable. LUNGS: No audible rhonchi or wheezes. HEART: Rate and Rhythm are regular. ABDOMEN: Nontender. EXTREMITITES: No edema. Objective - Vital Signs Vital signs: Vital Signs Temp 97.8 F 07/25/23 07:23 Pulse 68 07/25/23 07:23 Resp 20 07/25/23 07:23 BP 184/77 07/25/23 07:23 Pulse Ox 95 07/25/23 07:23 FiO2 Intake & Output 07/24/23 07/25/23 07/25/23 18:59 06:59 18:59 Intake Total 480 240 Output Total 25 Balance 455 240 Weight 78.5 kg Intake: Oral 480 240 Output: Urine 25 Other: Voiding Method Toilet Toilet Toilet Urinal Urinal Urinal - Labs CBC & Chem 7: 07/24/23 08:26 07/24/23 15:57 Labs: Abnormal Lab Results - Last 24 Hours (Table) 07/24/23 07/24/23 07/24/23 Range/Units 11:40 15:57 20:03 Sodium 122 L (137-145) mmol/L POC Glucose (mg/dL) 137 H 136 H (70-110) mg/dL 07/25/23 Range/Units 06:13 Sodium (137-145) mmol/L POC Glucose (mg/dL) 117 H (70-110) mg/dL Assessment and Plan Plan: Assessment: 1. End-stage renal disease maintained on peritoneal dialysis. 2. Hypovolemic hyponatremia improving with normal saline. 3. Hypertension with chronic any disease. Orthostatics negative. 4. Diabetes mellitus. 5. Chronic kidney disease mineral bone disease maintained on PhosLo. Phosphorus level 6.2 dated 07/23/2023. 6. Vomiting and diarrhea. Improved. Plan: Hep-Lock IV fluids. Maintain fluid restriction. Encouraged oral intake. Patient refuses to take hydralazine as it makes him dizzy. Dose of minoxidil increased to 5 mg twice daily. Increase dose of Coreg. Hold for heart rate less than 60. Maintain current PD exchanges with 1.5% dextrose solution. PTH related peptide noted to be elevated in July 2022. Oncology following.
[2023-07-25 11:15] VITALS: PULSE 67
[2023-07-25 11:16] LABS: Glucose,Whole Blood 152 mg/dL (70-110)
[2023-07-25 13:12] VITALS: BP 182/79; TEMP 97.9
--- NOTE | 2023-07-25 13:50 | P.DS ---
Providers Date of admission: 07/23/23 15:21 Expected date of discharge: 07/25/23 Attending physician: Jerry Jara Consults: 07/23/23 15:21 Consult Physician Urgent Consulting Provider: Aman Ocampo Consult Reason/Comments: esrd on pd, acute hyponatremia Do you want consulting provider notified?: Yes 07/24/23 09:54 Consult Physician Routine Consulting Provider: Delmer Lopez Consult Reason/Comments: high pth-rp Do you want consulting provider notified?: Yes Primary care physician: Jeryr Jara - Discharge Diagnosis(es) (1) Dehydration Current Visit: Yes Status: Acute (2) Diarrhea Current Visit: Yes Status: Acute (3) ESRD on peritoneal dialysis Current Visit: Yes Status: Acute (4) Hyponatremia Current Visit: Yes Status: Acute (5) Nausea & vomiting Current Visit: Yes Status: Acute (6) Weakness Current Visit: Yes Status: Acute (7) Abdominal pain Current Visit: No Status: Acute (8) Anemia Current Visit: No Status: Acute (9) CAD (coronary artery disease) Current Visit: No Status: Acute (10) ESRD (end stage renal disease) Current Visit: No Status: Acute Patient Condition at Discharge: Stable Plan - Discharge Summary New Discharge Prescriptions: New minoxidiL 10 mg PO DAILY 30 Days tab No Action amLODIPine [Norvasc] 10 mg PO DAILY Insulin Glargine [Lantus Vial] 4 unit SQ DAILY rOPINIRole HCL [Requip] 0.25 mg PO DAILY PRN PRN Reason: RLS Vitamin B Complex 1 cap PO DAILY carvediloL [Coreg] 25 mg PO W/LUNCH PRN PRN Reason: High BP Calcium Acetate [PhosLo] 1,334 mg PO TID-W/MEALS Calcium Acetate [PhosLo] 667 mg PO BID PRN PRN Reason: w/snacks carvediloL [Coreg] 25 mg PO BID Multivitamins, Thera [Multivitamin (formulary)] 1 tab PO DAILY Sodium Chloride Tab 1 gm PO DAILY #30 tablet Vitamin D3 300mcg 1 tab PO DAILY rOPINIRole HCL [Requip] 0.25 mg PO HS Ubidecarenone [Co Q-10] 300 mg PO DAILY Ondansetron [Zofran] 4 mg PO Q8H PRN PRN Reason: Nausea ondansetron HCL [Zofran] 8 mg PO Q8H PRN PRN Reason: Nausea Lactulose [Cephulac] 30 gm PO BID Discharge Medication List Calcium Acetate [PhosLo] 1,334 mg PO TID-W/MEALS 09/02/21 [History] Calcium Acetate [PhosLo] 667 mg PO BID PRN 03/09/22 [History] Insulin Glargine [Lantus Vial] 4 unit SQ DAILY 07/28/22 [History] amLODIPine [Norvasc] 10 mg PO DAILY 07/28/22 [History] carvediloL [Coreg] 25 mg PO BID 07/28/22 [History] Multivitamins, Thera [Multivitamin (formulary)] 1 tab PO DAILY 05/15/23 [History] Sodium Chloride Tab 1 gm PO DAILY #30 tablet 05/20/23 [Rx] Lactulose [Cephulac] 30 gm PO BID 07/23/23 [History] Ondansetron [Zofran] 4 mg PO Q8H PRN 07/23/23 [History] Ubidecarenone [Co Q-10] 300 mg PO DAILY 07/23/23 [History] Vitamin B Complex 1 cap PO DAILY 07/23/23 [History] Vitamin D3 300mcg 1 tab PO DAILY 07/23/23 [History] carvediloL [Coreg] 25 mg PO W/LUNCH PRN 07/23/23 [History] ondansetron HCL [Zofran] 8 mg PO Q8H PRN 07/23/23 [History] rOPINIRole HCL [Requip] 0.25 mg PO DAILY PRN 07/23/23 [History] rOPINIRole HCL [Requip] 0.25 mg PO HS 07/23/23 [History] minoxidiL 10 mg PO DAILY 30 Days tab 07/25/23 [Rx] Follow up Appointment(s)/Referral(s): Jerry Jara Jr, [Primary Care Provider] - 1-2 days (Office closed; please call [facility] Wednesday morning to schedule follow up appointment.) Patient Instructions/Handouts: Hyponatremia (DC), Hypertension (DC) Activity/Diet/Wound Care/Special Instructions: Dr. Jara will see you in the office this week and arrange for you to get a 4- wheeled walker through your insurance. Continue 1,200 mL fluid restriction.
[2023-07-25] MEDS ORDERED: carvediloL 12.5 MG TAB PO SCH (17:30)
[2023-07-25] MEDS ORDERED: DIALYSIS (PERIT 1.5%) 2,500 ML 30 G/2,000 ML BAG INTRAPERIT SCH (18:00)
== END 2023-07-25 14:24 | disposition home or self-care (01) | DRG 640 ==
LOC: EC 13:03 → 3SCARD 15:21
PROVIDERS: ADMIT Family Medicine; ATTEND Family Medicine
PROC: 3E1M39Z Irrigation of Peritoneal Cavity using Dialysate, Percutaneous Approach (ICD-10-PCS; principal; 2023-07-23)
DX: E86.0 Dehydration (principal); N18.6 End stage renal disease; I12.0 Hypertensive chronic kidney disease with stage 5 chronic kidney disease or end stage renal disease; E11.22 Type 2 diabetes mellitus with diabetic chronic kidney disease; D63.1 Anemia in chronic kidney disease; Z99.2 Dependence on renal dialysis; Z79.4 Long term (current) use of insulin; E11.51 Type 2 diabetes mellitus with diabetic peripheral angiopathy without gangrene; I25.10 Atherosclerotic heart disease of native coronary artery without angina pectoris; E87.1 Hypo-osmolality and hyponatremia; G25.81 Restless legs syndrome; R11.2 Nausea with vomiting, unspecified; E86.1 Hypovolemia; E83.9 Disorder of mineral metabolism, unspecified; Z28.310 Unvaccinated for COVID-19; Z28.21 Immunization not carried out because of patient refusal; Z79.899 Other long term (current) drug therapy; Z95.1 Presence of aortocoronary bypass graft; Z88.5 Allergy status to narcotic agent; Z91.040 Latex allergy status; Z89.421 Acquired absence of other right toe(s); Z96.642 Presence of left artificial hip joint
CPT/HCPCS: 36415; 71046; 80048; 80053; 82570; 82652; 83605; 83735; 83880; 83930; 83935; 83970; 84100; 84153; 84295; 84300; 84484; 85025; 85610; 85730; 93005; 96360; 99285

== ENCOUNTER 2024-02-02 11:43 | Inpatient (IN) | payer MEDICARE ==
--- NOTE | 2024-02-02 12:35 | ED ---
SOB HPI - General Chief Complaint: Shortness of Breath Stated Complaint: SOB Time Seen by Provider: 02/02/24 12:00 Source: patient Mode of arrival: wheelchair Limitations: no limitations - History of Present Illness Initial Comments: 78-year-old male with past medical history of end-stage renal disease on peritoneal dialysis who presents emergency department with shortness of breath. States that he has had worsening shortness of breath for the past 1 month. states that he is under the care of his supervisor furnace process and light bulb assembler for this. He does not have oxygen at home. The supervisor furnace process did place him on 2 green bags, 4 cycles a day in order to attempt to get some fluid off of him as he has been suffering from lower extremity edema. The light bulb assembler also saw him this past week and was going to do an echo of his heart as he does have a significant murmur. Patient does not make any urine. He does not take any diuretics. He d enies any fevers. No nausea or vomiting. Denies any abdominal pain. No other alleviating, precipitating or modifying factors - Related Data Home Medications Medication Instructions Recorded Confirmed Calcium Acetate [PhosLo] 1,334 mg PO TID-W/MEALS 09/02/21 02/02/24 Calcium Acetate [PhosLo] 667 mg PO BID PRN 03/09/22 02/02/24 amLODIPine [Norvasc] 10 mg PO DAILY 07/28/22 02/02/24 carvediloL [Coreg] 25 mg PO TID PRN 07/28/22 02/02/24 Lactulose [Cephulac] 30 gm PO BID 07/23/23 02/02/24 Ondansetron [Zofran] 4 mg PO Q8H PRN 07/23/23 02/02/24 rOPINIRole HCL [Requip] 0.25 mg PO BID 07/23/23 02/02/24 Acetaminophen Tab [Tylenol] 1,000 mg PO Q6H PRN 02/02/24 02/02/24 Acyclovir 5% Oint [Zovirax Oint] 1 applic TOPICAL Q3H PRN MDD 6 02/02/24 02/02/24 times a day Aspirin EC [Ecotrin Low Dose] 81 mg PO DAILY 02/02/24 02/02/24 Previous Rx's Medication Instructions Recorded HYDROcodone/APAP 7.5-325MG [[place] 1 each PO Q6HR PRN #12 tab 02/08/24 7.5-325] Insulin Glargine [Lantus Vial] 24 unit SQ DAILY #0 02/08/24 Pantoprazole [Protonix] 40 mg PO AC-BRKFST #30 tab 02/08/24 carvediloL [Coreg*] 12.5 mg PO BID-W/MEALS #60 tab 02/08/24 Allergies Allergy/AdvReac Type Severity Reaction Status Date / Time citric acid Allergy Rash/Hives Verified 07/23/23 15:17 with high doses latex Allergy Swelling, Verified 07/23/23 15:17 SKIN TURNED RED,BURNING, ITCHING losartan Allergy Cough Verified 07/23/23 15:17 hydrocodone [From [place]] AdvReac Hallucinati Verified 07/23/23 15:17 ons Review of Systems ROS Statement: Those systems with pertinent positive or pertinent negative responses have been documented in the HPI. ROS Other: All systems not noted in ROS Statement are negative. 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, LEFT TOTAL HIP, BILATERAL CATARACT SURGERY WITH LENS IMPLANT Past Anesthesia/Blood Transfusion Reactions: No Reported Reaction Past Psychological History: No Psychological Hx Reported Smoking Status: Never smoker Past Alcohol Use History: None Reported Past Drug Use History: None Reported - Past Family History Mother Family Medical History: Cancer Father History Unknown: Yes General Exam Limitations: no limitations General appearance: alert, in distress (Mild distress) Eye exam: Present: normal appearance, PERRL, EOMI. Absent: scleral icterus, conjunctival injection, periorbital swelling ENT exam: Present: normal exam, mucous membranes moist Respiratory exam: Present: rales, accessory muscle use, other (Tachypnea) Cardiovascular Exam: Present: regular rate, normal rhythm, normal heart sounds. Absent: systolic murmur, diastolic murmur, rubs, gallop, clicks GI/Abdominal exam: Present: soft, normal bowel sounds. Absent: distended, tenderness, guarding, rebound, rigid Extremities exam: Present: pedal edema Neurological exam: Present: alert, oriented X3, CN II-XII intact Psychiatric exam: Present: agitated Skin exam: Present: warm, dry, intact, normal color. Absent: rash Course Vital Signs 02/02/24 02/02/24 02/02/24 11:54 12:05 13:00 Temperature 97.8 F Pulse Rate 74 77 Respiratory 18 22 Rate Blood Pressure 168/109 177/74 O2 Sat by Pulse 86 L 94 L 96 Oximetry 02/02/24 02/02/24 02/02/24 14:00 15:00 16:00 Temperature Pulse Rate 74 Respiratory Rate Blood Pressure 172/63 187/62 174/52 O2 Sat by Pulse 87 L 100 98 Oximetry 02/02/24 02/02/24 02/02/24 17:00 18:00 19:00 Temperature Pulse Rate 73 73 Respiratory Rate Blood Pressure 182/159 174/68 O2 Sat by Pulse 92 L 98 Oximetry 02/02/24 02/02/24 02/02/24 20:00 20:54 21:00 Temperature 98.9 F Pulse Rate 70 Respiratory 18 Rate Blood Pressure 166/72 179/98 O2 Sat by Pulse 93 L 95 95 Oximetry 02/02/24 02/02/24 02/03/24 22:00 22:10 00:15 Temperature 98.9 F 98.1 F Pulse Rate 75 78 Respiratory 20 18 Rate Blood Pressure 151/105 190/105 O2 Sat by Pulse 95 98 Oximetry 02/03/24 02/03/24 02/03/24 00:40 00:52 04:47 Temperature 98.2 F 98.1 F Pulse Rate 75 78 79 Respiratory 18 18 19 Rate Blood Pressure 187/49 173/70 156/74 O2 Sat by Pulse 97 98 97 Oximetry 02/03/24 02/03/24 02/03/24 07:41 09:08 11:15 Temperature 98.4 F Pulse Rate 73 61 Respiratory 18 16 Rate Blood Pressure 168/118 140/63 O2 Sat by Pulse 96 99 98 Oximetry 02/03/24 02/03/24 02/03/24 12:00 14:00 14:15 Temperature 98.4 F Pulse Rate 68 73 73 Respiratory 14 16 18 Rate Blood Pressure 126/53 126/53 126/53 O2 Sat by Pulse 97 97 97 Oximetry Medical Decision Making - Medical Decision Making Was pt. sent in by a medical professional or institution (ALVAREZ Paiz, ELECTRICAL MAINTENANCE SUPERVISOR, urgent care, hospital, or intermediate...) When possible be specific @ -No Did you speak to anyone other than the patient for history (EMS, parent, family, police, friend...)? What history was obtained from this source @ -Spoke with for majority of the history Did you review nursing and triage notes (agree or disagree)? Why? @ -I reviewed and agree with nursing and triage notes Were old charts reviewed (outside hosp., previous admission, EMS record, old EKG, old radiological studies, urgent care reports/EKG's, intermediate records)? Report findings @ -No old charts were reviewed Differential Diagnosis (chest pain, altered mental status, abdominal pain women, abdominal pain men, vaginal bleeding, weakness, fever, dyspnea, syncope, headache, dizziness, GI bleed, back pain, seizure, CVA, palpatations, mental health, musculoskeletal)? @ -Differential Dyspnea: Coronary syndrome, arrhythmia, tamponade, asthma, COPD, pulmonary embolism, pneumonia, pneumothorax, pulmonary effusion, anaphylaxis, diabetic ketoacidosis, flailed chest, pulmonary contusion, diaphragmatic rupture, anemia, neuromuscular, this is not meant to be an all-inclusive list. EKG interpreted by me (3pts min.). @ -Yes and demonstrates sinus rhythm with a rate of 75. NH interval 236. QRS 102. QTc of 439. No acute ST segment elevations or depressions X-rays interpreted by me (1pt min.). @ -Yes and demonstrates pulmonary vascular congestion CT interpreted by me (1pt min.). @ -None done U/S interpreted by me (1pt. min.). @ -None done What testing was considered but not performed or refused? (CT, X-rays, U/S, labs)? Why? @ -None What meds were considered but not given or refused? Why? @ -None Did you discuss the management of the patient with other professionals (professionals i.e. ALVAREZ Paiz, ELECTRICAL MAINTENANCE SUPERVISOR, lab, RT, psych nurse, social problems specialist, cloth baler, teacher, surveillance sensor officer, case management assistant)? Give summary @ -Discussed the case with Dr. Haro. She instructs me on the orders that she would like for peritoneal dialysis. I informed her that the patient would like to transfer to hemodialysis. She states that she will see and evaluate the patient and will place a consult for vascular if the decision is made to switch. I also spoke with Dr. Jara for admission Was smoking cessation discussed for >3mins.? @ -No Was critical care preformed (if so, how long)? @ -No Were there social determinants of health that impacted care today? How? (Homelessness, low income, unemployed, alcoholism, drug addiction, transportation, low edu. Level, literacy, decrease access to med. care, correction, rehab)? @ -No Was there de-escalation of care discussed even if they declined (Discuss DNR or withdrawal of care, Hospice)? DNR status @ -No What co-morbidities impacted this encounter? (DM, HTN, Smoking, COPD, CAD, Cancer, CVA, ARF, Chemo, Hep., AIDS, mental health diagnosis, sleep apnea, morbid obesity)? @ -End-stage renal disease on peritoneal dialysis Was patient admitted / discharged? Hospital course, mention meds given and route, prescriptions, significant lab abnormalities, going to OR and other pertinent info. @ -Upon arrival patient was seen and evaluated in room 8. He is tachypneic and hypoxic. He is placed on 4 L nasal cannula. Laboratory studies were conducted. Chest x-ray was performed. Patient is grossly volume overloaded. I discussed this with Dr. Haro. She gives me orders for peritoneal dialysis. Patient states that he would like to transfer to hemodialysis. I did discuss this with Dr. Haro and she states that she would like to evaluate the patient first. I spoke with Dr. Jara who is agreeable to the admission. Patient taken to the floor in stable condition Undiagnosed new problem with uncertain prognosis? @ -Yes Drug Therapy requiring intensive monitoring for toxicity (Heparin, Nitro, Insulin, Cardizem)? @ -No Were any procedures done? @ -No Diagnosis/symptom? @ -Acute dyspnea, acute volume overload with pulmonary edema, history of end- stage renal disease on peritoneal dialysis Acute, or Chronic, or Acute on Chronic? @ -Acute Uncomplicated (without systemic symptoms) or Complicated (systemic symptoms)? @ -Complicated Side effects of treatment? @ -No Exacerbation, Progression, or Severe Exacerbation? @ -No Poses a threat to life or bodily function? How? (Chest pain, [place], VA, pneumonia, PE, COPD, DKA, ARF, appy, cholecystitis, CVA, Diverticulitis, Homicidal, Suicidal, threat to staff... and all critical care pts) @ -Yes as patient arrives hypoxic - Lab Data Result diagrams: 02/06/24 10:11 02/08/24 08:44 Lab Results 02/02/24 02/02/24 02/02/24 Range/Units 12:41 12:41 12:41 WBC 8.5 (3.8-10.6) k/uL RBC 3.23 L (4.30-5.90) m/uL Hgb 10.3 L (13.0-17.5) gm/dL Hct 30.9 L (39.0-53.0) % MCV 95.8 (80.0-100.0) fL MCH 32.0 (25.0-35.0) pg MCHC 33.4 (31.0-37.0) g/dL RDW 13.7 (11.5-15.5) % Plt Count 214 (150-450) k/uL MPV 9.4 Neutrophils % 73 % Lymphocytes % 13 % Monocytes % 6 % Eosinophils % 7 % Basophils % 1 % Neutrophils # 6.1 (1.3-7.7) k/uL Lymphocytes # 1.1 (1.0-4.8) k/uL Monocytes # 0.5 (0-1.0) k/uL Eosinophils # 0.6 (0-0.7) k/uL Basophils # 0.1 (0-0.2) k/uL PT 10.2 (10.0-12.5) sec INR 0.9 (<1.2) APTT 24.7 (22.0-30.0) sec Sodium 136 L (137-145) mmol/L Potassium 3.8 (3.5-5.1) mmol/L Chloride 101 (98-107) mmol/L Carbon Dioxide 24 (22-30) mmol/L Anion Gap 11 mmol/L BUN 109 H* (9-20) mg/dL Creatinine 10.13 H* (0.66-1.25) mg/dL Est GFR (CKD-EPI)AfAm 5 (>60 ml/min/1.73 sqM) Est GFR (CKD-EPI)NonAf 4 (>60 ml/min/1.73 sqM) Glucose 148 H (74-99) mg/dL Plasma Lactic Acid Bill (0.7-2.0) mmol/L Calcium 8.3 L (8.4-10.2) mg/dL Magnesium 2.2 (1.6-2.3) mg/dL Total Bilirubin 0.5 (0.2-1.3) mg/dL AST 29 (17-59) U/L ALT 34 (4-49) U/L Alkaline Phosphatase 62 (38-126) U/L Troponin I (0.000-0.034) ng/mL NT-Pro-B Natriuret Pep [id number] pg/mL Total Protein 5.5 L (6.3-8.2) g/dL Albumin 2.9 L (3.5-5.0) g/dL Influenza Type A (PCR) (Not Detectd) Influenza Type B (PCR) (Not Detectd) RSV (PCR) (Not Detectd) SARS-CoV-2 (PCR) (Not Detectd) 02/02/24 02/02/24 02/02/24 Range/Units 12:41 12:41 13:46 WBC (3.8-10.6) k/uL RBC (4.30-5.90) m/uL Hgb (13.0-17.5) gm/dL Hct (39.0-53.0) % MCV (80.0-100.0) fL MCH (25.0-35.0) pg MCHC (31.0-37.0) g/dL RDW (11.5-15.5) % Plt Count (150-450) k/uL MPV Neutrophils % % Lymphocytes % % Monocytes % % Eosinophils % % Basophils % % Neutrophils # (1.3-7.7) k/uL Lymphocytes # (1.0-4.8) k/uL Monocytes # (0-1.0) k/uL Eosinophils # (0-0.7) k/uL Basophils # (0-0.2) k/uL PT (10.0-12.5) sec INR (<1.2) APTT (22.0-30.0) sec Sodium (137-145) mmol/L Potassium (3.5-5.1) mmol/L Chloride (98-107) mmol/L Carbon Dioxide (22-30) mmol/L Anion Gap mmol/L BUN (9-20) mg/dL Creatinine (0.66-1.25) mg/dL Est GFR (CKD-EPI)AfAm (>60 ml/min/1.73 sqM) Est GFR (CKD-EPI)NonAf (>60 ml/min/1.73 sqM) Glucose (74-99) mg/dL Plasma Lactic Acid Bill 0.8 (0.7-2.0) mmol/L Calcium (8.4-10.2) mg/dL Magnesium (1.6-2.3) mg/dL Total Bilirubin (0.2-1.3) mg/dL AST (17-59) U/L ALT (4-49) U/L Alkaline Phosphatase (38-126) U/L Troponin I 0.108 H* (0.000-0.034) ng/mL NT-Pro-B Natriuret Pep pg/mL Total Protein (6.3-8.2) g/dL Albumin (3.5-5.0) g/dL Influenza Type A (PCR) Not Detected (Not Detectd) Influenza Type B (PCR) Not Detected (Not Detectd) RSV (PCR) Not Detected (Not Detectd) SARS-CoV-2 (PCR) Not Detected (Not Detectd) Disposition Clinical Impression: Pulmonary edema, ESRD on peritoneal dialysis, Elevated troponin, Hypoxia Disposition: ADMITTED IP TO THIS HOSP Condition: Stable Is patient prescribed a controlled substance at d/c from ED?: No Time of Disposition: 14:53 Decision to Admit Reason: Admit from EC Decision Date: 02/02/24 Decision Time: 14:53
[2024-02-02 13:02] LABS: Basophils # (A) 0.1 k/uL (0-0.2); Basophils % (A) 1 %; Eosinophils # (A) 0.6 k/uL (0-0.7); Eosinophils % (A) 7 %; HCT 30.9 % (39.0-53.0); HGB 10.3 gm/dL (13.0-17.5); Lymphocytes # (A) 1.1 k/uL (1.0-4.8); Lymphocytes % (A) 13 %; MCHC 33.4 g/dL (31.0-37.0); MCV 95.8 fL (80.0-100.0); Mean Platelet Volume 9.4; Monocytes # (A) 0.5 k/uL (0-1.0); Monocytes % (A) 6 %; Neutrophils # (A) 6.1 k/uL (1.3-7.7); Neutrophils % (A) 73 %; Platelet Count 214 k/uL (150-450); RBC 3.23 m/uL (4.30-5.90); RDW 13.7 % (11.5-15.5); WBC 8.5 k/uL (3.8-10.6)
[2024-02-02 13:15] LABS: ALT 34 U/L (4-49); African American GFR (CKD) 5 (>60 ml/min/1.73 sqM); Albumin 2.9 g/dL (3.5-5.0); Anion Gap 11 mmol/L; Calcium 8.3 mg/dL (8.4-10.2); Carbon Dioxide 24 mmol/L (22-30); Chloride 101 mmol/L (98-107); Glucose 148 mg/dL (74-99); INR 0.9 (<1.2); Non-African American GFR(CKD) 4 (>60 ml/min/1.73 sqM); Partial Thromboplastin Time 24.7 sec (22.0-30.0); Prothrombin Time 10.2 sec (10.0-12.5); Sodium 136 mmol/L (137-145); Total Bilirubin 0.5 mg/dL (0.2-1.3); Total Protein 5.5 g/dL (6.3-8.2)
[2024-02-02 13:19] LABS: Blood Urea Nitrogen 109 mg/dL (9-20)
[2024-02-02 13:20] LABS: AST 29 U/L (17-59); Alkaline Phosphatase 62 U/L (38-126); Magnesium 2.2 mg/dL (1.6-2.3); Potassium 3.8 mmol/L (3.5-5.1)
[2024-02-02 13:45] LABS: NT-Pro-B-Type Natriuretic Pept 167000 pg/mL
--- NOTE | 2024-02-02 13:53 | XR ---
EXAMINATION TYPE: XR chest 2V DATE OF EXAM: 02/02/2024 COMPARISON: 07/23/2023 HISTORY: 78-year-old male shortness of breath, difficulty breathing TECHNIQUE: AP and lateral views FINDINGS: Median sternotomy wires are present with post-CABG changes. Heart mildly enlarged. Diffuse interstiti al opacities have progressed. Increasing small bilateral pleural effusions with patchy bibasilar opac ities. IMPRESSION: CHF with interstitial pulmonary edema. Small bilateral pleural effusions with adjacent atelectasis an d/or consolidation.
[2024-02-02] MEDS ORDERED: NALOXONE 0.4 MG/ML 1 ML VIAL IV PRN (14:53)
[2024-02-02] MEDS: HYDROcodone/APAP 7.5-325MG 1 EACH TAB PO PRN (17:21)
[2024-02-02] MEDS: DIALYSIS (PERIT 4.25%) 2500 ML 106.25 G/2,500 ML BAG INTRAPERIT SCH (17:22)
[2024-02-02] MEDS ORDERED: ACYCLOVIR 5% TOPICAL PRN (19:08)
[2024-02-02] MEDS ORDERED: CALCIUM ACETATE 667 MG TAB PO PRN (19:08)
[2024-02-02] MEDS: INSULIN DETEMIR (LEVEMIR) 100 UNIT/ML SYR SQ SCH (20:43)
[2024-02-02 20:59] LABS: Glucose,Whole Blood 308 mg/dL (70-110)
[2024-02-02] MEDS: LACTULOSE 20 GM/30 ML CUP PO SCH (21:18)
[2024-02-03 08:27] LABS: African American GFR (CKD) 5 (>60 ml/min/1.73 sqM); Anion Gap 13 mmol/L; Calcium 8.6 mg/dL (8.4-10.2); Carbon Dioxide 25 mmol/L (22-30); Chloride 101 mmol/L (98-107); Glucose 334 mg/dL (74-99); Non-African American GFR(CKD) 5 (>60 ml/min/1.73 sqM); Potassium 3.9 mmol/L (3.5-5.1); Sodium 139 mmol/L (137-145)
[2024-02-03 08:48] LABS: Basophils # (A) 0.1 k/uL (0-0.2); Basophils % (A) 1 %; Eosinophils # (A) 0.6 k/uL (0-0.7); Eosinophils % (A) 7 %; HCT 33.1 % (39.0-53.0); HGB 10.8 gm/dL (13.0-17.5); Lymphocytes # (A) 0.8 k/uL (1.0-4.8); Lymphocytes % (A) 9 %; MCH 31.4 pg (25.0-35.0); MCHC 32.6 g/dL (31.0-37.0); MCV 96.3 fL (80.0-100.0); Mean Platelet Volume 9.7; Monocytes # (A) 0.5 k/uL (0-1.0); Monocytes % (A) 6 %; Neutrophils # (A) 6.4 k/uL (1.3-7.7); Neutrophils % (A) 77 %; Platelet Count 250 k/uL (150-450); RBC 3.44 m/uL (4.30-5.90); WBC 8.3 k/uL (3.8-10.6)
[2024-02-03] MEDS: CALCIUM ACETATE 667 MG TAB PO SCH (09:01)
[2024-02-03] MEDS: ASPIRIN 81 MG PO SCH (09:01)
[2024-02-03] MEDS: amLODIPine 10 MG TAB PO SCH (09:02)
[2024-02-03] MEDS: carvediloL 12.5 MG TAB PO PRN (09:08)
[2024-02-03 09:10] LABS: Blood Urea Nitrogen 102 mg/dL (9-20)
[2024-02-03] MEDS ORDERED: IPRATROPIUM-ALBUTEROL 3 ML NEB INHALATION PRN (11:09)
[2024-02-03 11:33] LABS: Glucose,Whole Blood 354 mg/dL (70-110)
--- NOTE | 2024-02-03 11:48 | P.NPCON ---
History of Present Illness - Reason for Consult end stage renal disease - History of Present Illness patient is a 78-year-old male with end-stage renal disease maintained on peritoneal dialysis. Patient is admitted to the hospital with complaints of increased shortness of breath and lower extremity swelling. Patient states that he has had increased weight gain over the past 1-2 weeks. Patient denies having missed any of his exchanges at home. he has been using 2.5% solutions. It appears there is fatigue from continued home dialysis. Patient is considering switching to in center hemodialysis. Patient has been maintained on 4.25% solution exchanges every 4 hours. He has had significant ultrafiltration off about 1 L with each exchange with improvement in volume status as well. no complaints of fever chills nausea vomiting or abdominal pain. Next Patient has left Foot wound for which he follows with Dr. Odom. 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, LEFT TOTAL HIP, BILATERAL CATARACT SURGERY WITH LENS IMPLANT Past Anesthesia/Blood Transfusion Reactions: No Reported Reaction Past Psychological History: No Psychological Hx Reported Smoking Status: Never smoker Past Alcohol Use History: None Reported Past Drug Use History: None Reported - Past Family History Mother Family Medical History: Cancer Father History Unknown: Yes Medications and Allergies Home Medications Medication Instructions Recorded Confirmed Type Calcium Acetate [PhosLo] 1,334 mg PO TID-W/MEALS 09/02/21 02/02/24 History Calcium Acetate [PhosLo] 667 mg PO BID PRN 03/09/22 02/02/24 History Insulin Glargine [Lantus Vial] 4 unit SQ DAILY 07/28/22 02/02/24 History amLODIPine [Norvasc] 10 mg PO DAILY 07/28/22 02/02/24 History carvediloL [Coreg] 25 mg PO TID PRN 07/28/22 02/02/24 History Lactulose [Cephulac] 30 gm PO BID 07/23/23 02/02/24 History Ondansetron [Zofran] 4 mg PO Q8H PRN 07/23/23 02/02/24 History rOPINIRole HCL [Requip] 0.25 mg PO BID 07/23/23 02/02/24 History Acetaminophen Tab [Tylenol Tab] 1,000 mg PO Q6H PRN 02/02/24 02/02/24 History Acyclovir 5% Oint [Zovirax Oint] 1 applic TOPICAL Q3H PRN MDD 6 02/02/24 02/02/24 History times a day Aspirin EC [Ecotrin Low Dose] 81 mg PO DAILY 02/02/24 02/02/24 History Allergies Allergy/AdvReac Type Severity Reaction Status Date / Time citric acid Allergy Rash/Hives Verified 07/23/23 15:17 with high doses latex Allergy Swelling, Verified 07/23/23 15:17 SKIN TURNED RED,BURNING, ITCHING losartan Allergy Cough Verified 07/23/23 15:17 hydrocodone [From [place]] AdvReac Hallucinati Verified 07/23/23 15:17 ons Physical Exam Vitals: Vital Signs Temp Pulse Resp BP Pulse Ox 02/03/24 11:15 98.4 F 61 16 140/63 98 02/03/24 09:08 73 18 168/118 99 02/03/24 07:41 96 02/03/24 04:47 98.1 F 79 19 156/74 97 02/03/24 00:52 98.2 F 78 18 173/70 98 02/03/24 00:40 75 18 187/49 97 02/03/24 00:15 98.1 F 78 18 190/105 98 02/02/24 22:10 98.9 F 75 20 95 02/02/24 22:00 151/105 02/02/24 21:00 179/98 95 02/02/24 20:54 98.9 F 70 18 95 02/02/24 20:00 166/72 93 L 02/02/24 19:00 98 02/02/24 18:00 73 174/68 92 L 02/02/24 17:00 73 182/159 02/02/24 16:00 174/52 98 02/02/24 15:00 74 187/62 100 02/02/24 14:00 172/63 87 L 02/02/24 13:00 77 22 177/74 96 02/02/24 12:05 94 L 02/02/24 11:54 97.8 F 74 18 168/109 86 L patient is awake, comfortable, alert oriented 3. Examination of the heart S1 and S2 Examination of the lungs bilateral breath sounds are heard Abdomen is nontender Examination of lower extremities shows edema 3+ bilaterally, right foot is wrapped. CLINICAL SAFETY SPECIALIST exam grossly intact Results - Lab Results Most recent lab results Calcium 8.6 mg/dL (8.4-10.2) 02/03/24 07:51 Magnesium 2.2 mg/dL (1.6-2.3) 02/02/24 12:41 02/03/24 07:51 02/03/24 07:51 Assessment and Plan Assessment: 1. End-stage renal disease on peritoneal dialysis currently maintained on 4.25% exchanges every 4 hours for volume overload. patient is considering switching to in center hemodialysis. We will proceed with vein mapping and AV fistula placement as outpatient. No need for urgent hemodialysis at this point. 2. Volume overload slowly improving 3. CK D mineral bone disorder 4. Chronic left lower extremity wound being followed by vascular surgery. history of recent amputation at [facility], details not available. Plan: continue with current PD exchanges Encouraged increase oral intake Continue with phosphate binders Thank you for the consultation. We will continue to follow the patient with you during his hospitalization.
--- NOTE | 2024-02-03 12:03 | P.CRDCN ---
History of Present Illness History of present illness: HISTORY OF PRESENT ILLNESS: This is a 78-year-old male with a past medical history significant for coronary artery disease with previous CABG, end-stage renal disease on peritoneal dialys is, diabetes, peripheral arterial disease, and aortic stenosis. Patient follows in the office with Dr. Macias. We have been asked to see the patient in consultation for acute volume overload. Patient examined at the bedside in the emergency room. Patient presented to the hospital with a chief complaint of shortness of breath. He states he has been feeling short of breath for the past 4 to 5 weeks although it has been getting worse over the past few days. He does report that he has been retaining fluid at home. He reports a weight gain of approximately 10 pounds. He states he is unable to lay flat at night due to shortness of breath and has to sit up. Patient states he has been compliant with his peritoneal dialysis. DIAGNOSTICS: - EKG reveals sinus mechanism with nonspecific ST-T wave changes. - Chest xray CHF with interstitial pulmonary edema. Small bilateral pleural effusions with adjacent atelectasis and/or consolidation. - Laboratory data: WBC 8.3. Hemoglobin 10.8. Platelet count 250. Sodium 139. Potassium 3.9. BUN 102. Creatinine 9.76. Troponin 0.108. proBNP 167,000 - Current home cardiac medications include carvedilol 25 mg 3 times a day as needed, amlodipine 10 mg daily, aspirin 81 mg daily. - Most recent echocardiogram obtained in December 2022 revealed ejection fraction 55 to 60%, mild concentric LVH, trace to mild aortic regurgitation, moderate to severe aortic stenosis, mild to moderate mitral regurgitation, moderate tricuspid regurgitation -Patient underwent Lexiscan stress test in November 2022 which was negative for ischemia REVIEW OF SYSTEMS: At the time of my exam: CONSTITUTIONAL: Denies fever or chills. HEENT: Denies blurred vision, vision changes, or eye pain. Denies hemoptysis CARDIOVASCULAR: Denies chest pain. Reports orthopnea. Reports PND. Denies palpitations RESPIRATORY: Reports shortness of breath. GASTROINTESTINAL: Denies abdominal pain. Denies nausea or vomiting. HEMATOLOGIC: Denies bleeding disorders. GENITOURINARY: Denies any blood in urine. SKIN: Denies pruitis. Denies rash. PHYSICAL EXAM: VITAL SIGNS: Reviewed. GENERAL: Well-developed in no acute distress. HEENT: Head is normocephalic. Pupils are equal, round. Sclerae anicteric. Mucous membranes of the mouth are moist. Neck supple. No JVD or thyromegaly LUNGS: Respirations even and unlabored. Lungs diminished to auscultation bilaterally. HEART: Regular rate and rhythm. S1 and S2 heard. 3/6 systolic murmur noted ABDOMEN: Soft. Nondistended. Nontender. EXTREMITIES: Normal range of motion. No clubbing or cyanosis. Peripheral pulses intact. Significant bilateral lower extremity edema NEUROLOGIC: Awake and alert. Oriented x 3. ASSESSMENT: Shortness of breath End-stage renal disease on peritoneal dialysis Volume overload, secondary to above Elevated troponin secondary to CKD, no evidence of ACS Coronary artery disease with previous CABG Moderate to severe aortic stenosis Peripheral arterial disease with previous popliteal bypass Hyperlipidemia PLAN: Obtain 2D echo to assess cardiac structure and function Continue peritoneal dialysis per nephrology. Patient considering switching to hemodialysis on an outpatient basis. Resume home cardiac medications Patient tentatively scheduled for PARTH and right and left heart cath on an outpatient basis with Dr. Macias on 02/07/2024. Pending patient's progress, this may need to be rescheduled Further recommendations pending patient course Nurse practitioner note has been reviewed by physician. Signing provider agrees with the documented findings, assessment, and plan of care documented by DIE STAMPING PRESS OPERATOR as a scribe. 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, LEFT TOTAL HIP, BILATERAL CATARACT SURGERY WITH LENS IMPLANT Past Anesthesia/Blood Transfusion Reactions: No Reported Reaction Past Psychological History: No Psychological Hx Reported Smoking Status: Never smoker Past Alcohol Use History: None Reported Past Drug Use History: None Reported - Past Family History Mother Family Medical History: Cancer Father History Unknown: Yes Medications and Allergies Home Medications Medication Instructions Recorded Confirmed Type Calcium Acetate [PhosLo] 1,334 mg PO TID-W/MEALS 09/02/21 02/02/24 History Calcium Acetate [PhosLo] 667 mg PO BID PRN 03/09/22 02/02/24 History Insulin Glargine [Lantus Vial] 4 unit SQ DAILY 07/28/22 02/02/24 History amLODIPine [Norvasc] 10 mg PO DAILY 07/28/22 02/02/24 History carvediloL [Coreg] 25 mg PO TID PRN 07/28/22 02/02/24 History Lactulose [Cephulac] 30 gm PO BID 07/23/23 02/02/24 History Ondansetron [Zofran] 4 mg PO Q8H PRN 07/23/23 02/02/24 History rOPINIRole HCL [Requip] 0.25 mg PO BID 07/23/23 02/02/24 History Acetaminophen Tab [Tylenol Tab] 1,000 mg PO Q6H PRN 02/02/24 02/02/24 History Acyclovir 5% Oint [Zovirax Oint] 1 applic TOPICAL Q3H PRN MDD 6 02/02/24 0 02/02/24 History times a day Aspirin EC [Ecotrin Low Dose] 81 mg PO DAILY 02/02/24 02/02/24 History Allergies Allergy/AdvReac Type Severity Reaction Status Date / Time citric acid Allergy Rash/Hives Verified 07/23/23 15:17 with high doses latex Allergy Swelling, Verified 07/23/23 15:17 SKIN TURNED RED,BURNING, ITCHING losartan Allergy Cough Verified 07/23/23 15:17 hydrocodone [From [place]] AdvReac Hallucinati Verified 07/23/23 15:17 ons Physical Exam Vitals: Vital Signs Temp Pulse Resp BP Pulse Ox 02/03/24 11:15 98.4 F 61 16 140/63 98 02/03/24 09:08 73 18 168/118 99 02/03/24 07:41 96 02/03/24 04:47 98.1 F 79 19 156/74 97 02/03/24 00:52 98.2 F 78 18 173/70 98 02/03/24 00:40 75 18 187/49 97 02/03/24 00:15 98.1 F 78 18 190/105 98 02/02/24 22:10 98.9 F 75 20 95 02/02/24 22:00 151/105 02/02/24 21:00 179/98 95 02/02/24 20:54 98.9 F 70 18 95 02/02/24 20:00 166/72 93 L 02/02/24 19:00 98 02/02/24 18:00 73 174/68 92 L 02/02/24 17:00 73 182/159 02/02/24 16:00 174/52 98 02/02/24 15:00 74 187/62 100 02/02/24 14:00 172/63 87 L 02/02/24 13:00 77 22 177/74 96 02/02/24 12:05 94 L 02/02/24 11:54 97.8 F 74 18 168/109 86 L Results 02/03/24 07:51 02/03/24 07:51 Cardiac Enzymes 02/02/24 02/02/24 Range/Units 12:41 12:41 AST 29 (17-59) U/L Troponin I 0.108 H* (0.000-0.034) ng/mL Coagulation 02/02/24 Range/Units 12:41 PT 10.2 (10.0-12.5) sec APTT 24.7 (22.0-30.0) sec CBC 02/02/24 02/03/24 Range/Units 12:41 07:51 WBC 8.5 8.3 (3.8-10.6) k/uL RBC 3.23 L 3.44 L (4.30-5.90) m/uL Hgb 10.3 L 10.8 L (13.0-17.5) gm/dL Hct 30.9 L 33.1 L (39.0-53.0) % Plt Count 214 250 (150-450) k/uL Comprehensive Metabolic Panel 02/02/24 02/03/24 Range/Units 12:41 07:51 Sodium 136 L 139 (137-145) mmol/L Potassium 3.8 3.9 (3.5-5.1) mmol/L Chloride 101 101 (98-107) mmol/L Carbon Dioxide 24 25 (22-30) mmol/L BUN 109 H* 102 H* (9-20) mg/dL Creatinine 10.13 H* 9.76 H* (0.66-1.25) mg/dL Glucose 148 H 334 H (74-99) mg/dL Calcium 8.3 L 8.6 (8.4-10.2) mg/dL AST 29 (17-59) U/L ALT 34 (4-49) U/L Alkaline Phosphatase 62 (38-126) U/L Total Protein 5.5 L (6.3-8.2) g/dL Albumin 2.9 L (3.5-5.0) g/dL Current Medications Generic Name Dose Route Start Last Admin Trade Name Freq PRN Reason Stop Dose Admin Acetaminophen 1,000 mg 02/02/24 19:08 Acetaminophen Tab 500 Mg Tab PO Q6H PRN Fever and/ or Pain Hydrocodone Bitart/Acetaminophen 1 each 02/02/24 16:48 02/02/24 17:21 Hydrocodone/Apap 7.5-325mg 1 Each Tab PO 1 each Q6HR PRN Administration Pain Albuterol/Ipratropium 3 ml 02/03/24 12:00 Ipratropium-Albuterol 3 Ml Neb INHALATION RT-QID RAIN Albuterol/Ipratropium 3 ml 02/03/24 11:09 Ipratropium-Albuterol 3 Ml Neb INHALATION RT-Q2H PRN Shortness Of Breath Or Wheezing Amlodipine Besylate 10 mg 02/03/24 09:00 02/03/24 09:02 Amlodipine 10 Mg Tab PO 10 mg DAILY RAIN Administration Aspirin 81 mg 02/03/24 09:00 02/03/24 09:01 Aspirin 81 Mg PO 81 mg DAILY RAIN Administration Calcium Acetate 667 mg 02/02/24 19:08 Calcium Acetate 667 Mg Tab PO BID PRN w/snacks Calcium Acetate 1,334 mg 02/03/24 07:30 02/03/24 09:01 Calcium Acetate 667 Mg Tab PO 1,334 mg TID-W/MEALS RAIN Administration Carvedilol 25 mg 02/02/24 19:08 02/03/24 09:08 Carvedilol 12.5 Mg Tab PO 25 mg TID PRN Administration SBP greater than 150 Peritoneal Dialysis Solution 106.25 g in 2,500 mls @ 0 mls/hr 02/02/24 16:00 02/03/24 09:27 Delflex With 4.25% Dextrose (2,500 Ml) INTRAPERIT 2,500 mls/hr Q4HR RAIN Administration Protocol As Directed Insulin Detemir 4 unit 02/02/24 19:15 02/03/24 11:32 Insulin Detemir (Levemir) 100 Unit/Ml Syr SQ 4 unit DAILY RAIN Administration Lactulose 30 gm 02/02/24 21:00 02/03/24 09:02 Lactulose 20 Gm/30 Ml Cup PO Not Given BID RAIN Naloxone HCl 0.2 mg 02/02/24 14:53 Naloxone 0.4 Mg/Ml 1 Ml Vial IV Q2M PRN Opioid Reversal Non-Formulary Medication 1 applic 02/02/24 19:08 Acyclovir 5% Oint TOPICAL Q3H PRN Skin Irritation Ondansetron HCl 4 mg 02/02/24 19:08 Ondansetron 4 Mg Tab PO Q8H PRN Nausea Ropinirole HCl 0.25 mg 02/02/24 21:00 02/03/24 09:02 Ropinirole Hcl 0.25 Mg Tab PO 0.25 mg BID RAIN Administration 02/03/24 07:51 02/03/24 07:51
[2024-02-03] MEDS: IPRATROPIUM-ALBUTEROL 3 ML NEB INHALATION SCH (12:07)
[2024-02-03] MEDS: HYDROmorphone 1 MG/ML 1 ML SYRINGE IVP PRN (14:59)
[2024-02-03 16:21] LABS: Glucose,Whole Blood 324 mg/dL (70-110)
[2024-02-03] MEDS: INSULIN ASPART (NovoLOG) 100 UNIT/ML VIAL SQ SCH (16:43)
--- NOTE | 2024-02-03 17:11 | P.GSCN ---
History of Present Illness History of present illness: 78-year-old gentleman well-known to me from the past patient has a history of acute chronic renal failure patient is on home peritoneal dialysis. Patient came with history of shortness of breath patient has a home oxygen. This patient also had 2 to amputation done in the past has been coming to the wound clinic for local wound care. Chest examination patient has a crackles bilateral patient on home oxygen. Second sound present Abdomen soft nontender patient has a peritoneal dialysis is working vascular femorals are 1+ bilateral patient has a wound on the lateral aspect of the foot base of the wound is clean and dry and granulating no fever or chills present we have changed the dressing today with Santyl cream this should be changed on daily basis I have discussed with Dr. Haro regarding dialysis if Is not working then we will consider placing a dialysis catheter and venous mapping of the left arm follow with you Past Medical History Past Medical History: Coronary Artery Disease (CAD), Diabetes Mellitus, Dialysis, Hypertension, Renal Disease Additional Past Medical History / Comment(s): PERITONEAL DIALYSIS - -4 TIMES DAILY , POOR CIRCULATION IN LOWER LEGS History of Any Multi-Drug Resistant Organisms: None Reported Year Discovered:: 09/03/21 MDRO Source:: ESBL PERITONEAL FLUID Past Surgical History: Coronary Bypass/CABG, Heart Catheterization, Joint Replacement Additional Past Surgical History / Comment(s): 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, LEFT TOTAL HIP, BILATERAL CATARACT SURGERY WITH LENS IMPLANT, right 3-5 toes amputated 8-9 weeks ago related to diabetes Past Anesthesia/Blood Transfusion Reactions: No Reported Reaction Past Psychological History: No Psychological Hx Reported Smoking Status: Never smoker Past Alcohol Use History: None Reported Past Drug Use History: None Reported - Past Family History Mother Family Medical History: Cancer, Diabetes Mellitus Additional Family Medical History / Comment(s): Heart disease Father History Unknown: Yes Medications and Allergies Home Medications Medication Instructions Recorded Confirmed Type Calcium Acetate [PhosLo] 1,334 mg PO TID-W/MEALS 09/02/21 02/02/24 History Calcium Acetate [PhosLo] 667 mg PO BID PRN 03/09/22 02/02/24 History Insulin Glargine [Lantus Vial] 4 unit SQ DAILY 07/28/22 02/02/24 History amLODIPine [Norvasc] 10 mg PO DAILY 07/28/22 02/02/24 History carvediloL [Coreg] 25 mg PO TID PRN 07/28/22 02/02/24 History Lactulose [Cephulac] 30 gm PO BID 07/23/23 02/02/24 History Ondansetron [Zofran] 4 mg PO Q8H PRN 07/23/23 02/02/24 History rOPINIRole HCL [Requip] 0.25 mg PO BID 07/23/23 02/02/24 History Acetaminophen Tab [Tylenol Tab] 1,000 mg PO Q6H PRN 02/02/24 02/02/24 History Acyclovir 5% Oint [Zovirax Oint] 1 applic TOPICAL Q3H PRN MDD 6 02/02/24 02/02/24 History times a day Aspirin EC [Ecotrin Low Dose] 81 mg PO DAILY 02/02/24 02/02/24 History Allergies Allergy/AdvReac Type Severity Reaction Status Date / Time citric acid Allergy Rash/Hives Verified 07/23/23 15:17 with high doses latex Allergy Swelling, Verified 07/23/23 15:17 SKIN TURNED RED,BURNING, ITCHING losartan Allergy Cough Verified 07/23/23 15:17 hydrocodone [From [place]] AdvReac Hallucinati Verified 07/23/23 15:17 ons Surgical - Exam Vital Signs Temp Pulse Resp BP Pulse Ox 97.8 F 74 18 168/109 86 L 02/02/24 11:54 02/02/24 11:54 02/02/24 11:54 02/02/24 11:54 02/02/24 11:54 Results - Labs 02/03/24 07:51 02/03/24 07:51 Abnormal Lab Results - Last 24 Hours (Table) 02/02/24 02/03/24 02/03/24 Range/Units 20:56 07:51 07:51 RBC 3.44 L (4.30-5.90) m/uL Hgb 10.8 L (13.0-17.5) gm/dL Hct 33.1 L (39.0-53.0) % Lymphocytes # 0.8 L (1.0-4.8) k/uL BUN 102 H* (9-20) mg/dL Creatinine 9.76 H* (0.66-1.25) mg/dL Glucose 334 H (74-99) mg/dL POC Glucose (mg/dL) 308 H (70-110) mg/dL 02/03/24 02/03/24 Range/Units 11:31 16:19 RBC (4.30-5.90) m/uL Hgb (13.0-17.5) gm/dL Hct (39.0-53.0) % Lymphocytes # (1.0-4.8) k/uL BUN (9-20) mg/dL Creatinine (0.66-1.25) mg/dL Glucose (74-99) mg/dL POC Glucose (mg/dL) 354 H 324 H (70-110) mg/dL Diabetes panel 02/03/24 Range/Units 07:51 Sodium 139 (137-145) mmol/L Potassium 3.9 (3.5-5.1) mmol/L Chloride 101 (98-107) mmol/L Carbon Dioxide 25 (22-30) mmol/L BUN 102 H* (9-20) mg/dL Creatinine 9.76 H* (0.66-1.25) mg/dL Glucose 334 H (74-99) mg/dL Calcium 8.6 (8.4-10.2) mg/dL Calcium panel 02/03/24 Range/Units 07:51 Calcium 8.6 (8.4-10.2) mg/dL Pituitary panel 02/03/24 Range/Units 07:51 Sodium 139 (137-145) mmol/L Potassium 3.9 (3.5-5.1) mmol/L Chloride 101 (98-107) mmol/L Carbon Dioxide 25 (22-30) mmol/L BUN 102 H* (9-20) mg/dL Creatinine 9.76 H* (0.66-1.25) mg/dL Glucose 334 H (74-99) mg/dL Calcium 8.6 (8.4-10.2) mg/dL Adrenal panel 02/03/24 Range/Units 07:51 Sodium 139 (137-145) mmol/L Potassium 3.9 (3.5-5.1) mmol/L Chloride 101 (98-107) mmol/L Carbon Dioxide 25 (22-30) mmol/L BUN 102 H* (9-20) mg/dL Creatinine 9.76 H* (0.66-1.25) mg/dL Glucose 334 H (74-99) mg/dL Calcium 8.6 (8.4-10.2) mg/dL
[2024-02-03] MEDS: COLLAGENASE 250 UNIT/GM OINTMENT 30 GM TUBE TOPICAL SCH (18:00)
[2024-02-03] MEDS: DIALYSIS (PERIT 4.25%) 2500 ML 106.25 G/2,500 ML BAG INTRAPERIT SCH (18:12)
[2024-02-03] MEDS ORDERED: DEXTROSE 50% SYRINGE 50 ML IVP PRN ×2 (19:23)
--- NOTE | 2024-02-03 19:37 | P.HPIM ---
History of Present Illness H&P Date: 02/03/24 Chief Complaint: Progressive dyspnea This is a 78-year-old gentleman with past medical history significant for end- stage renal disease on peritoneal dialysis, CAD, PAD, diabetes mellitus and multiple other medical issues, presented to the ER with complaints of progressive shortness of breath over the last month, orthopnea and weight gain of 10 pounds. Reports he has been compliant with his peritoneal dialysis exchanges and has not missed any. EKG reported sinus rhyth with nonspecific ST and T wave abnormality. Chest x-ray reporting CHF with interstitial pulmonary edema, small bilateral pleural effusions with adjacent atelectasis and/or consolidation. Viral studies negative. Denies chills, fevers, nausea or vomiting. Afebrile, WBC 8.3, hemoglobin 10.8, platelets 250, electrolytes within normal limits, bicarb 25, BUN 102, creatinine 9.76. Blood sugars uncontr olled in the 300s. 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, LEFT TOTAL HIP, BILATERAL CATARACT SURGERY WITH LENS IMPLANT, right 3-5 toes amputated 8-9 weeks ago related to diabetes Past Anesthesia/Blood Transfusion Reactions: No Reported Reaction Past Psychological History: No Psychological Hx Reported Smoking Status: Never smoker Past Alcohol Use History: None Reported Past Drug Use History: None Reported - Past Family History Mother Family Medical History: Cancer, Diabetes Mellitus Additional Family Medical History / Comment(s): Heart disease Father History Unknown: Yes Medications and Allergies Home Medications Medication Instructions Recorded Confirmed Type Calcium Acetate [PhosLo] 1,334 mg PO TID-W/MEALS 09/02/21 02/02/24 History Calcium Acetate [PhosLo] 667 mg PO BID PRN 03/09/22 02/02/24 History Insulin Glargine [Lantus Vial] 4 unit SQ DAILY 07/28/22 02/02/24 History amLODIPine [Norvasc] 10 mg PO DAILY 07/28/22 02/02/24 History carvediloL [Coreg] 25 mg PO TID PRN 07/28/22 02/02/24 History Lactulose [Cephulac] 30 gm PO BID 07/23/23 02/02/24 History Ondansetron [Zofran] 4 mg PO Q8H PRN 07/23/23 02/02/24 History rOPINIRole HCL [Requip] 0.25 mg PO BID 07/23/23 02/02/24 History Acetaminophen Tab [Tylenol Tab] 1,000 mg PO Q6H PRN 02/02/24 02/02/24 History Acyclovir 5% Oint [Zovirax Oint] 1 applic TOPICAL Q3H PRN MDD 6 02/02/24 02/02/24 History times a day Aspirin EC [Ecotrin Low Dose] 81 mg PO DAILY 02/02/24 02/02/24 History Allergies Allergy/AdvReac Type Severity Reaction Status Date / Time citric acid Allergy Rash/Hives Verified 07/23/23 15:17 with high doses latex Allergy Swelling, Verified 07/23/23 15:17 SKIN TURNED RED,BURNING, ITCHING losartan Allergy Cough Verified 07/23/23 15:17 hydrocodone [From [place]] AdvReac Hallucinati Verified 07/23/23 15:17 ons Physical Exam Vitals: Vital Signs Temp Pulse Pulse Resp BP BP Pulse Ox 02/03/24 18:44 97.9 F 71 20 169/82 97 02/03/24 17:06 67 18 02/03/24 16:37 97.6 F 67 18 149/50 96 02/03/24 15:13 97.7 F 66 20 165/75 98 02/03/24 15:06 68 02/03/24 14:42 97.8 F 68 20 176/79 97 02/03/24 14:15 98.4 F 73 18 126/53 97 02/03/24 14:00 73 16 126/53 97 02/03/24 12:00 68 14 126/53 97 02/03/24 11:15 98.4 F 61 16 140/63 98 02/03/24 09:08 73 18 168/118 99 02/03/24 07:41 96 02/03/24 04:47 98.1 F 79 19 156/74 97 02/03/24 00:52 98.2 F 78 18 173/70 98 02/03/24 00:40 75 18 187/49 97 02/03/24 00:15 98.1 F 78 18 190/105 98 02/02/24 22:10 98.9 F 75 20 95 02/02/24 22:00 151/105 02/02/24 21:00 179/98 95 02/02/24 20:54 98.9 F 70 18 95 02/02/24 20:00 166/72 93 L Intake and Output 02/03/24 02/03/24 02/03/24 06:59 14:59 22:59 Other: Voiding Method Toilet Weight 78.471 kg - Exam GENERAL: Alert and oriented 3, Sitting up at side of bed, no acute distress. HEENT: Normocephalic, pupils equal round and reactive to light, sclera anicteric, conjunctiva normal.MMM. NECK: Supple, no JVD. LUNGS: Unlabored, equal air entry, bilateral breath sounds clear. HEART: Regular rate and rhythm without , systolic ejection murmur ABDOMEN: Soft, nontender, normoactive bowel sounds. No guarding, no rebound. No masses appreciated. Peritoneal dialysis catheter present without irritation. EXTREMITIES: positive lower extremity edema +3 no clubbing or cyanosis. NEUROLOGICAL: Cranial nerves II through XII grossly intact. No focal deficits. SKIN: Warm, Dry, no rashes or lesions noted. Results CBC & Chem 7: 02/03/24 07:51 02/03/24 07:51 Labs: Abnormal Lab Results - Last 24 Hours (Table) 02/02/24 02/03/24 02/03/24 Range/Units 20:56 07:51 07:51 RBC 3.44 L (4.30-5.90) m/uL Hgb 10.8 L (13.0-17.5) gm/dL Hct 33.1 L (39.0-53.0) % Lymphocytes # 0.8 L (1.0-4.8) k/uL BUN 102 H* (9-20) mg/dL Creatinine 9.76 H* (0.66-1.25) mg/dL Glucose 334 H (74-99) mg/dL POC Glucose (mg/dL) 308 H (70-110) mg/dL 02/03/24 02/03/24 Range/Units 11:31 16:19 RBC (4.30-5.90) m/uL Hgb (13.0-17.5) gm/dL Hct (39.0-53.0) % Lymphocytes # (1.0-4.8) k/uL BUN (9-20) mg/dL Creatinine (0.66-1.25) mg/dL Glucose (74-99) mg/dL POC Glucose (mg/dL) 354 H 324 H (70-110) mg/dL Thrombosis Risk Factor Assmnt - Choose All That Apply Any of the Below Risk Factors Present?: Yes Each Factor Represents 1 point: Obesity (BMI >25), Swollen legs (current) Other Risk Factors: Yes Each Risk Factor Represents 3 Points: Age 75 years or older Other congenital or acquired thrombophilia - If yes, enter type in comment: No Thrombosis Risk Factor Assessment Total Risk Factor Score: 5 Thrombosis Risk Factor Assessment Level: High Risk Assessment and Plan Assessment: End-stage renal dialysis on peritoneal dialysis, with fluid volume overload. Patient has discussed with nephrology about switching over to hemodialysis this admission. Fluid volume overload secondary to the above Elevated troponin, related to the above, cardiology following Moderate to severe aortic stenosis CAD, history of CABG Hyperlipidemia Diabetes mellitus History of ESBL in peritoneal fluid COVID-19 infection 2020 PAD, history of popliteal bypass, history of right second toe amputation Osteoarthritis Anemia of chronic disease Restless leg syndrome Prior nicotine dependence Plan: Continue on current medication regimen ,monitoring and symptomatic treatment.. PD as per nephrology. patient requesting to be switched over to hemodialysis this admission with placement of a temporary dialysis catheter. PCP discussing with nephrology-vascular surgery consulted. Echo pending. Evaluated by cardiology with recommendations noted, including initially had been scheduled for PAR[facility], heart cath outpatient with Dr. Macias on 02/07/2024- May need rescheduling. The impression and plan of care has been dictated as directed. : I performed a history and examination of this patient, discussed the same with the dictator. I agree with the dictator's note ,documented as a scribe. Any additional findings or plans will be noted.
[2024-02-03 20:16] LABS: Glucose,Whole Blood 216 mg/dL (70-110)
[2024-02-03] MEDS: INSULIN DETEMIR (LEVEMIR) 100 UNIT/ML SYR SQ SCH (20:44)
[2024-02-04 06:08] LABS: Glucose,Whole Blood 147 mg/dL (70-110)
[2024-02-04] MEDS: INSULIN ASPART (NovoLOG) 100 UNIT/ML VIAL SQ SCH (07:04)
[2024-02-04] MEDS: carvediloL 12.5 MG TAB PO SCH (08:43)
--- NOTE | 2024-02-04 09:52 | P.PN ---
Subjective HISTORY OF PRESENT ILLNESS: This is a 78-year-old male with a past medical history significant for coronary artery disease with previous CABG, end-stage renal disease on peritoneal dialysis, diabetes, peripheral arterial disease, and aortic stenosis. Patient follows in the office with Dr. Macias. We have been asked to see the patient in consultation for acute volume overload. Patient examined at the bedside in the emergency room. Patient presented to the hospital with a chief complaint of shortness of breath. He states he has been feeling short of breath for the past 4 to 5 weeks although it has been getting worse over the past few days. He does report that he has been retaining fluid at home. He reports a weight gain of approximately 10 pounds. He states he is unable to lay flat at night due to shortness of breath and has to sit up. Patient states he has been compliant with his peritoneal dialysis. DIAGNOSTICS: - EKG reveals sinus mechanism with nonspecific ST-T wave changes. - Chest xray CHF with interstitial pulmonary edema. Small bilateral pleural effusions with adjacent atelectasis and/or consolidation. - Laboratory data: WBC 8.3. Hemoglobin 10.8. Platelet count 250. Sodium 139. Potassium 3.9. BUN 102. Creatinine 9.76. Troponin 0.108. proBNP 167,000 - Current home cardiac medications include carvedilol 25 mg 3 times a day as needed, amlodipine 10 mg daily, aspirin 81 mg daily. - Most recent echocardiogram obtained in December 2022 revealed ejection fraction 55 to 60%, mild concentric LVH, trace to mild aortic regurgitation, moderate to severe aortic stenosis, mild to moderate mitral regurgitation, moderate tricuspid regurgitation -Patient underwent Lexiscan stress test in November 2022 which was negative for ischemia 02/04/2024 Patient examined this morning at the bedside. Patient denies chest pain or pressure. He states that shortness of breath has resolved. He remains on nasal cannula with oxygen saturations greater than 92%. Blood pressure is elevated this morning with a systolic between [id number]. 2D echo is currently pending. PHYSICAL EXAM: VITAL SIGNS: Reviewed. GENERAL: Well-developed in no acute distress. HEENT: Head is normocephalic. Pupils are equal, round. Sclerae anicteric. Mucous membranes of the mouth are moist. Neck supple. No JVD or thyromegaly LUNGS: Respirations even and unlabored. Lungs diminished to auscultation bilaterally. HEART: Regular rate and rhythm. S1 and S2 heard. 3/6 systolic murmur noted ABDOMEN: Soft. Nondistended. Nontender. EXTREMITIES: Normal range of motion. No clubbing or cyanosis. Peripheral pulses intact. Significant bilateral lower extremity edema NEUROLOGIC: Awake and alert. Oriented x 3. ASSESSMENT: Shortness of breath End-stage renal disease on peritoneal dialysis Volume overload, secondary to above Elevated troponin secondary to CKD, no evidence of ACS Coronary artery disease with previous CABG Moderate to severe aortic stenosis Peripheral arterial disease with previous popliteal bypass Hyperlipidemia PLAN: 2D echo has been ordered. Await results. Continue peritoneal dialysis per nephrology. Vascular surgery consulted for catheter placement Begin carvedilol 12.5 mg twice a day for optimal blood pressure control Patient tentatively scheduled for PARTH and right and left heart cath on an outpatient basis with Dr. Macias on 02/07/2024. Will perform on Wednesday. Patient requesting to stay in hospital until Wednesday for his L/R heart cath and PARTH with Dr. Macias Wean oxygen as tolerated. Nursing to assess for home oxygen needs. Further recommendations pending patient course Nurse practitioner note has been reviewed by physician. Signing provider agrees with the documented findings, assessment, and plan of care documented by FIELD CASHIER as a scribe. Objective - Vital Signs Vital signs: Vital Signs Temp 97.9 F 02/04/24 08:36 Pulse 72 02/04/24 09:00 Resp 19 02/04/24 08:36 BP 162/65 02/04/24 08:36 Pulse Ox 95 02/04/24 08:41 FiO2 Intake & Output 02/03/24 02/04/24 02/04/24 18:59 06:59 18:59 Intake Total 10 360 Balance 10 360 Weight 78.471 kg Intake: IV 10 Invasive Line 2 10 Oral 360 Other: Voiding Method Toilet Toilet Toilet # Voids 1 - Labs CBC & Chem 7: 02/03/24 07:51 02/04/24 10:06 Labs: Abnormal Lab Results - Last 24 Hours (Table) 02/03/24 02/03/24 02/03/24 Range/Units 11:31 16:19 20:10 POC Glucose (mg/dL) 354 H 324 H 216 H (70-110) mg/dL 02/04/24 Range/Units 06:03 POC Glucose (mg/dL) 147 H (70-110) mg/dL
--- NOTE | 2024-02-04 10:32 | CA ---
Transthoracic Echo Report Name: Ferdinand Renner Age: 78 Gender: M : 1945 Exam Date: 02/03/2024 16:49 Exam Location: [place] [facility] Ht (in): 66 Wt (lb): 173 Ordering Physician: Christine Pierson Attending/Referring Phys: [id number], Kenna Fairmont Gold Attendant Lesley Robb RCS Procedure CPT: Indications: CHF, aortic stenosis Cardiac Hx: CABG x5 2011 Technical Quality: Good Contrast 1: Total Dose (mL): Contrast 2: Total Dose (mL): MEASUREMENTS (Male / Female) Normal Values 2D ECHO LV Diastolic Diameter PLAX 5.4 cm 4.2 - 5.9 / 3.9 - 5.3 cm LV Systolic Diameter PLAX 4.0 cm IVS Diastolic Thickness 1.2 cm 0.6 - 1.0 / 0.6 - 0.9 cm LVPW Diastolic Thickness 1.0 cm 0.6 - 1.0 / 0.6 - 0.9 cm LV Relative Wall Thickness 0.4 RV Internal Dim ED PLAX 3.1 cm LVOT Diameter 2.2 cm LV Diastolic Volume MOD BP 172.2 cm??? 67 - 155 / 56 - 104 cm??? LV Systolic Volume MOD BP 98.3 cm??? - / 19 - 49 cm??? LV Ejection Fraction MOD BP 42.9 % >= 55 % LV Cardiac Index MOD BP 2833.9 cm???/min???m??? LV Diastolic Volume MOD 4C 142.7 cm??? LV Systolic Volume MOD 4C 90.7 cm??? LV Ejection Fraction MOD 4C 36.5 % LV Cardiac Index MOD 4C 1994.5 cm???/min???m??? LV Diastolic Length 4C 9.5 cm LV Systolic Length 4C 8.2 cm LV Diastolic Volume MOD 2C 198.2 cm??? LV Systolic Volume MOD 2C 99.3 cm??? LV Ejection Fraction MOD 2C 49.9 % LV Cardiac Index MOD 2C 3791.3 cm???/min???m??? LV Diastolic Length 2C 10.1 cm LV Systolic Length 2C 8.9 cm LA Volume 99.0 cm??? - 58 / 22 - 52 cm??? LA Volume Index 51.3 cm???/m??? 16 - 28 cm???/m??? Ascending Aorta Diameter 4.0 cm DOPPLER AV Peak Velocity 346.5 cm/s AV Peak Gradient 48.0 mmHg AV Mean Velocity 251.9 cm/s AV Mean Gradient 27.8 mmHg AV Velocity Time Integral 84.4 cm LVOT Peak Velocity 95.4 cm/s LVOT Peak Gradient 3.6 mmHg LVOT Velocity Time Integral 20.5 cm LVOT Stroke Volume 75.4 cm??? LVOT Stroke Volume Index 40.1 ml/m??? LVOT Cardiac Index 2889.8 cm???/min???m??? AV Area Cont Eq vti 0.9 cm??? AV Area Cont Eq pk 1.0 cm??? MV Peak Velocity 112.3 cm/s MV Peak Gradient 5.0 mmHg MV Mean Velocity 73.6 cm/s MV Mean Gradient 2.3 mmHg MV Velocity Time Integral 30.9 cm MV Area PHT 5.1 cm??? Mitral E Point Velocity 105.3 cm/s Mitral A Point Velocity 55.3 cm/s Mitral E to A Ratio 1.9 MV Deceleration Time 147.5 ms TR Peak Velocity 313.6 cm/s TR Peak Gradient 39.3 mmHg Right Atrial Pressure 5.0 mmHg Pulmonary Artery Systolic Pressu 44.3 mmHg Right Ventricular Systolic Press 44.3 mmHg PV Peak Velocity 81.4 cm/s PV Peak Gradient 2.7 mmHg FINDINGS Left Ventricle Left ventricular ejection fraction is estimated at 35-40 %. Mildly increased septal wall thickness. Mildly increased left ventricular diastolic volume. Severely increased left ventricular systolic volume. Moderately decreased left ventricular ejection fraction. Right Ventricle Normal right ventricular size with mildly reduced function. Mild to moderately elevated right ventricular systolic pressure with 44mmHg. Right Atrium Normal right atrial size. Left Atrium Severely increased left atrial volume. Mildly increased left atrial area. Mitral Valve Mitral valve thickened. Mitral annular calcification. No evidence for mitral valve prolapse. No mitral stenosis. Trace mitral regurgitation. Aortic Valve Thickened aortic valve. [id number]-zzksvf aortic stenosis with a peak gradient of 48 mmHg and a mean gradient of 28 mmHg and an estimated aortic valve area of 0.9 cm???. Tricuspid Valve Bowing tricuspid valve leaflet. No tricuspid stenosis. Mild tricuspid regurgitation. Pulmonic Valve Structurally normal pulmonic valve. No pulmonic stenosis. Trace pulmonic regurgitation. Pericardium No pericardial effusion. Aorta Aortic annulus normal. Mildly enlarged ascending aorta. CONCLUSIONS Moderate LV systolic dysfunction with an ejection fraction of 35-40% moderate to severe aortic stenosis with a peak gradient of 14 mm and a mean gradient of 28 mm Previewed by: Dr. Deep Mcnair MD (Electronically Signed) Final Date: 04 February 2024 10:32
--- NOTE | 2024-02-04 10:39 | P.PN ---
Subjective patient is seen for follow-up for end-stage renal disease. Volume status is much improved. Patient states that he was able to sleep continuously for 8 hours last night. Discussed with patient again regarding switching to hemodialysis. Patient sta alex that he would like to switch during this hospitalization. Vascular surgery has been consult it and we will plan for dialysis catheter placement this hospitalization. In the meantime continue with current PD exchanges. Objective - Vital Signs Vital signs: Vital Signs Temp 97.9 F 02/04/24 08:36 Pulse 72 02/04/24 09:00 Resp 19 02/04/24 08:36 BP 162/65 02/04/24 08:36 Pulse Ox 95 02/04/24 08:41 FiO2 Intake & Output 02/03/24 02/04/24 02/04/24 18:59 06:59 18:59 Intake Total 10 360 Balance 10 360 Weight 78.471 kg Intake: IV 10 Invasive Line 2 10 Oral 360 Other: Voiding Method Toilet Toilet Toilet # Voids 1 - Exam patient is awake, comfortable, alert oriented 3. Examination of the heart S1 and S2 Examination of the lungs bilateral breath sounds are heard Abdomen is nontender Examination of lower extremities shows edema 3+ bilaterally, right foot is wrapped. OPTICAL GLASS SAWYER exam grossly intact - Labs CBC & Chem 7: 02/03/24 07:51 02/03/24 07:51 Labs: Abnormal Lab Results - Last 24 Hours (Table) 02/03/24 02/03/24 02/03/24 Range/Units 11:31 16:19 20:10 POC Glucose (mg/dL) 354 H 324 H 216 H (70-110) mg/dL 02/04/24 Range/Units 06:03 POC Glucose (mg/dL) 147 H (70-110) mg/dL Assessment and Plan Assessment: 1. End-stage renal disease on peritoneal dialysis currently maintained on 4.25% exchanges every 4 hours for volume overload. patient is considering switching to in center hemodialysis. We will proceed with vein mapping and AV fistula placement as outpatient. No need for urgent hemodialysis at this point. 2. Volume overload slowly improving 3. CK D mineral bone disorder 4. Chronic left lower extremity wound being followed by vascular surgery. history of recent amputation of right 3 lateral toes at [facility] Plan: continue with current PD exchanges. Hemodialysis catheter placement this hospitalization. Encouraged increase oral intake Continue with phosphate binders
[2024-02-04 11:16] LABS: African American GFR (CKD) 6 (>60 ml/min/1.73 sqM); Anion Gap 15 mmol/L; Blood Urea Nitrogen 94 mg/dL (9-20); Calcium 8.4 mg/dL (8.4-10.2); Carbon Dioxide 20 mmol/L (22-30); Chloride 104 mmol/L (98-107); Glucose 91 mg/dL (74-99); Non-African American GFR(CKD) 5 (>60 ml/min/1.73 sqM); Potassium 3.6 mmol/L (3.5-5.1); Sodium 139 mmol/L (137-145)
[2024-02-04 12:05] LABS: Glucose,Whole Blood 136 mg/dL (70-110)
--- NOTE | 2024-02-04 14:29 | P.PN ---
Subjective Progress Note Date: 02/04/24 H&P Date: 02/03/24 Chief Complaint: Progressive dyspnea This is a 78-year-old gentleman with past medical history significant for end- stage renal disease on peritoneal dialysis, CAD, PAD, diabetes mellitus and multiple other medical issues, presented to the ER with complaints of progressive shortness of breath over the last month, orthopnea and weight gain of 10 pounds. Reports he has been compliant with his peritoneal dialysis exchanges and has not missed any. EKG reported sinus rhyth with nonspecific ST and T wave abnormality. Chest x-ray reporting CHF with interstitial pulmonary edema, small bilateral pleural effusions with adjacent atelectasis and/or consolidation. Viral studies negative. Denies chills, fevers, nausea or vomiting. Afebrile, WBC 8.3, hemoglobin 10.8, platelets 250, electrolytes within normal limits, bicarb 25, BUN 102, creatinine 9.76. Blood sugars uncontrolled in the 300s. 02/04/2024 continues on PD as per nephrology, volume status improving. Maintaining O2 sats in the high 90s on 2 L nasal cannula, which can be further titrated. Hypertensive, Coreg initiated, blood pressures improving. Denies lightheadedness, dizziness or focal deficits. Denies headache. Sitting up at bedside, on the phone with his significant other. Denies chest pain, palpitations or shortness of breath. Echo completed, results pending. Reports he slept very well, 8 solid hours-which he states is very unusual for him. Objective - Vital Signs Vital signs: Vital Signs Temp 98.0 F 02/04/24 12:23 Pulse 72 02/04/24 12:23 Resp 16 02/04/24 12:23 BP 160/52 02/04/24 12:23 Pulse Ox 99 02/04/24 12:23 FiO2 Intake & Output 02/03/24 02/04/24 02/04/24 18:59 06:59 18:59 Intake Total 10 360 Balance 10 360 Weight 78.471 kg Intake: IV 10 Invasive Line 2 10 Oral 360 Other: Voiding Method Toilet Toilet Toilet # Voids 1 - Exam - Exam GENERAL: Alert and oriented 3, Sitting up at side of bed, no acute distress. HEENT: Normocephalic, pupils equal round and reactive to light, sclera anicteric, conjunctiva normal.MMM. NECK: Supple, no JVD. LUNGS: Unlabored, equal air entry, bilateral breath sounds clear. HEART: Regular rate and rhythm without , systolic ejection murmur ABDOMEN: Soft, nontender, normoactive bowel sounds. No guarding, no rebound. N o masses appreciated. Peritoneal dialysis catheter present without irritation. EXTREMITIES: positive lower extremity edema +3 no clubbing or cyanosis. NEUROLOGICAL: Cranial nerves II through XII grossly intact. No focal deficits. SKIN: Warm, Dry, no rashes or lesions noted. - Labs CBC & Chem 7: 02/03/24 07:51 02/04/24 10:06 Labs: Abnormal Lab Results - Last 24 Hours (Table) 02/03/24 02/03/24 02/04/24 Range/Units 16:19 20:10 06:03 Carbon Dioxide (22-30) mmol/L BUN (9-20) mg/dL Creatinine (0.66-1.25) mg/dL POC Glucose (mg/dL) 324 H 216 H 147 H (70-110) mg/dL 02/04/24 02/04/24 Range/Units 10:06 12:03 Carbon Dioxide 20 L (22-30) mmol/L BUN 94 H (9-20) mg/dL Creatinine 9.48 H* (0.66-1.25) mg/dL POC Glucose (mg/dL) 136 H (70-110) mg/dL Assessment and Plan Assessment: End-stage renal dialysis on peritoneal dialysis, with fluid volume overload. Patient has discussed with nephrology about switching over to hemodialysis this admission. Fluid volume overload secondary to the above Elevated troponin, related to the above, cardiology following Moderate to severe aortic stenosis CAD, history of CABG Hyperlipidemia Diabetes mellitus History of ESBL in peritoneal fluid COVID-19 infection 2020 PAD, history of popliteal bypass, history of right second toe amputation Osteoarthritis Anemia of chronic disease Restless leg syndrome Prior nicotine dependence Plan: Continue on current medication regimen ,monitoring and symptomatic treatment. Hypertensive, Coreg initiated as per cardiology. echo pending. PD as per nephrology. Vascular surgery has been consulted regarding temporary dialysis catheter placement during this hospitalization. Cardiology has cleared patient for discharge. Patient has a previously scheduled appointment outpatient with Dr. Macias on Wednesday for PARTH, right/left heart cath on 02/07/2024. The impression and plan of care has been dictated as directed. : I performed a history and examination of this patient, discussed the same with the dictator. I agree with the dictator's note ,documented as a scribe. Any additional findings or plans will be noted.
[2024-02-04 16:37] LABS: Glucose,Whole Blood 252 mg/dL (70-110)
[2024-02-04] MEDS: ONDANSETRON 4 MG TAB PO PRN (18:26)
[2024-02-04 20:15] LABS: Glucose,Whole Blood 212 mg/dL (70-110)
--- NOTE | 2024-02-04 23:42 | PN ---
PROGRESS NOTE SUBJECTIVE: History of chronic renal failure. Patient is having peritoneal dialysis. Discussed with Nephrology we will place dialysis catheter tomorrow, n.p.o. midnight and consent for dialysis catheter placement. Patient has a wound dressing, has been changed using Santyl cream. SWATIL / IJN: [id number] /
[2024-02-05] MEDS: PROCHLORPERAZINE INJ 10 MG/2 ML VIAL IVP PRN (05:57)
[2024-02-05 06:12] LABS: Glucose,Whole Blood 277 mg/dL (70-110)
[2024-02-05 06:54] LABS: ALT 21 U/L (4-49); AST 19 U/L (17-59); African American GFR (CKD) 5 (>60 ml/min/1.73 sqM); Albumin 2.7 g/dL (3.5-5.0); Alkaline Phosphatase 63 U/L (38-126); Anion Gap 14 mmol/L; Blood Urea Nitrogen 89 mg/dL (9-20); Carbon Dioxide 25 mmol/L (22-30); Chloride 101 mmol/L (98-107); Glucose 269 mg/dL (74-99); Non-African American GFR(CKD) 5 (>60 ml/min/1.73 sqM); Potassium 3.4 mmol/L (3.5-5.1); Sodium 140 mmol/L (137-145); Total Bilirubin 0.4 mg/dL (0.2-1.3); Total Protein 5.1 g/dL (6.3-8.2)
[2024-02-05] MEDS: IV FLUID CONTINUATION 1,000 ML IV ONE (09:00)
[2024-02-05] MEDS: MIDAZOLAM 2 MG/2 ML VIAL IVP ONE ×2 (09:10→09:20)
[2024-02-05] MEDS: LIDOCAINE 1% INJ 10MG/ML (20 ML MDV) SQ ONE (09:15)
--- NOTE | 2024-02-05 10:04 | IR ---
PICC Insertion: EXAMINATION TYPE: IR venogram upper ext LT Intraoperative/procedural fluoroscopic services were provi ded. CLINICAL INDICATION:Male, 78 years old with history of attempted hemodialysis catheter insertion. 3.1 min fluoro,; , H Total fluoroscopy time is 3.1 min. DAP: 373 uGym2 Please see the operative/procedural note for further details.
[2024-02-05] MEDS: ONDANSETRON 4 MG TAB PO PRN (10:11)
--- NOTE | 2024-02-05 10:12 | P.PN ---
Subjective Progress Note Date: 02/05/24 Principal diagnosis: CHF The patient is a 78-year-old gentleman with a past medical history significant for CAD status post CABG and also PAD with prior revascularization as well as valvular heart disease as well as cardiomyopathy and also multiple comorbid conditions including end-stage renal disease on peritoneal dialysis was admitted to the hospital with increasing shortness of breath and he was diagnosed with heart failure and felt to be in fluid overload. Beside that his troponin came in to be mildly abnormal. The patient was already scheduled to undergo transesophageal echocardiogram and heart catheterization by Dr. Macias this coming Wednesday. He was seen by the nephrology service and he was switched to undergo hemodialysis. And attempted to have a hemodialysis catheter from the left IJ was unsuccessful and he is in process of having a dialysis catheter from the femoral vein. February 05, 2024 The patient was seen this morning. He continues to have shortness of breath but he continues to be on oxygen. He is still in fluid overload with right and left failure. Dr. Odom is planning to perform dialysis catheter placement from the right common femoral vein and the patient will undergo hemodialysis after that. Meanwhile continue the current medical regimen. If the patient stays stable over the weekend he will undergo transesophageal echocardiogram and heart catheterization by Dr. Macias on Wednesday. The examination revealed significant systolic murmur at the right upper sternal border with bilateral rhonchi and bilateral lower extremities edema Assessment Coronary artery disease status post CABG Cardiomyopathy Peripheral arterial disease Valvular heart disease with aortic stenosis Heart failure End-stage renal disease on dialysis Plan Continue the current medical regimen Plan to perform hemodialysis as soon as we have an access Follow-up with the patient Objective - Vital Signs Vital signs: Vital Signs Temp 98.2 F 02/05/24 08:05 Pulse 93 02/05/24 08:05 Resp 18 02/05/24 08:05 BP 129/82 02/05/24 08:05 Pulse Ox 94 L 02/05/24 08:45 FiO2 Intake & Output 02/04/24 02/05/24 02/05/24 18:59 06:59 18:59 Intake Total 360 10 25 Balance 360 10 25 Intake: IV 10 25 Invasive Line 2 10 Oral 360 Other: Voiding Method Toilet Toilet # Voids 0 1 # Bowel Movements 1 - Labs CBC & Chem 7: 02/03/24 07:51 02/05/24 06:08 Labs: Abnormal Lab Results - Last 24 Hours (Table) 02/04/24 02/04/24 02/04/24 Range/Units 10:06 12:03 16:35 Potassium (3.5-5.1) mmol/L Carbon Dioxide 20 L (22-30) mmol/L BUN 94 H (9-20) mg/dL Creatinine 9.48 H* (0.66-1.25) mg/dL Glucose (74-99) mg/dL POC Glucose (mg/dL) 136 H 252 H (70-110) mg/dL Calcium (8.4-10.2) mg/dL Total Protein (6.3-8.2) g/dL Albumin (3.5-5.0) g/dL 02/04/24 02/05/24 02/05/24 Range/Units 20:13 06:08 06:10 Potassium 3.4 L (3.5-5.1) mmol/L Carbon Dioxide (22-30) mmol/L BUN 89 H (9-20) mg/dL Creatinine 9.86 H* (0.66-1.25) mg/dL Glucose 269 H (74-99) mg/dL POC Glucose (mg/dL) 212 H 277 H (70-110) mg/dL Calcium 8.0 L (8.4-10.2) mg/dL Total Protein 5.1 L (6.3-8.2) g/dL Albumin 2.7 L (3.5-5.0) g/dL
--- NOTE | 2024-02-05 10:27 | OP ---
OPERATIVE REPORT DATE OF SERVICE : PREOPERATIVE DIAGNOSIS: Acute chronic failure. POSTOPERATIVE DIAGNOSIS: Acute chronic failure. PROCEDURE PERFORMED: Attempted left intravenous jugular dialysis catheter placement. DESCRIPTION OF PROCEDURE: This patient has a right IJ occluded. Left side of the chest and neck was prepped and drapes applied in a sterile manner. Ultrasound-guided micropuncture into the right jugular vein, micropuncture guidewire was passed. There, the loop of the distal IJ before entered the innominate vein, we passed a Glidewire. At this point, the patient is very restless and we gave him some sedation, but we cannot give him more sedation. He is very restless and shortness of breath. At this point, we terminated the procedure. We will bring him back when he is more stable. MMRAYRAY / IJN: [id number] /
--- NOTE | 2024-02-05 11:12 | OP ---
OPERATIVE REPORT DATE OF SERVICE : PREOPERATIVE DIAGNOSIS: Acute chronic failure. POSTOPERATIVE DIAGNOSIS: Acute chronic failure. PROCEDURE: Ultrasound-guided temporary dialysis catheter placed in the left femoral approach. PROCEDURE PERFORMED: The patient was brought to the room, left groin was prepped, ultrasound-guided micropuncture introduced in the left femoral vein. Micropuncture guidewire was passed and 4-Kyrgyz dilator was advanced on top of the guidewire. Then, we passed a regular guidewire and then we placed a temporary dialysis catheter in left femoral approach, flushed with heparin saline and hep-locked, secured with 3-0 nylon. The patient tolerated the procedure well. MMODL / IJN: [id number] /
--- NOTE | 2024-02-05 11:15 | P.PN ---
Subjective patient is seen for follow-up for end-stage renal disease. Volume status is much improved. however patient remains short of breath particularly on exertion. Patient was taken to cardiac cath lab radiology technologist for IJ permacath placement however the veins were very tortuous and and patient could not lay down flat. He was therefore sent back to the room and a bedside femoral dialysis catheter is being placed. We will arrange for hemodialysis treatment today. Objective - Vital Signs Vital signs: Vital Signs Temp 98.2 F 02/05/24 08:05 Pulse 93 02/05/24 08:05 Resp 18 02/05/24 08:05 BP 129/82 02/05/24 08:05 Pulse Ox 94 L 02/05/24 08:45 FiO2 Intake & Output 02/04/24 02/05/24 02/05/24 18:59 06:59 18:59 Intake Total 360 10 25 Balance 360 10 25 Intake: IV 10 25 Invasive Line 2 10 Oral 360 Other: Voiding Method Toilet Toilet Toilet # Voids 0 1 # Bowel Movements 1 - Exam patient is sedated and sleeping left femoral vein being accessed for dialysis catheter placement Examination of lower extremities shows edema 3+ bilaterally, right foot is wrapped. CONVEX GRINDER exam grossly intact - Labs CBC & Chem 7: 02/03/24 07:51 02/05/24 06:08 Labs: Abnormal Lab Results - Last 24 Hours (Table) 02/04/24 02/04/24 02/04/24 Range/Units 10:06 12:03 16:35 Potassium (3.5-5.1) mmol/L Carbon Dioxide 20 L (22-30) mmol/L BUN 94 H (9-20) mg/dL Creatinine 9.48 H* (0.66-1.25) mg/dL Glucose (74-99) mg/dL POC Glucose (mg/dL) 136 H 252 H (70-110) mg/dL Calcium (8.4-10.2) mg/dL Total Protein (6.3-8.2) g/dL Albumin (3.5-5.0) g/dL 02/04/24 02/05/24 02/05/24 Range/Units 20:13 06:08 06:10 Potassium 3.4 L (3.5-5.1) mmol/L Carbon Dioxide (22-30) mmol/L BUN 89 H (9-20) mg/dL Creatinine 9.86 H* (0.66-1.25) mg/dL Glucose 269 H (74-99) mg/dL POC Glucose (mg/dL) 212 H 277 H (70-110) mg/dL Calcium 8.0 L (8.4-10.2) mg/dL Total Protein 5.1 L (6.3-8.2) g/dL Albumin 2.7 L (3.5-5.0) g/dL Assessment and Plan Assessment: 1. End-stage renal disease on peritoneal dialysis currently maintained on 4.25% exchanges every 4 hours for volume overload. patient will be switching to in center hemodialysis. We will proceed with vein mapping and AV fistula placement as outpatient. 2. Volume overload slowly improving 3. CK D mineral bone disorder 4. Chronic left lower extremity wound being followed by vascular surgery. history of recent amputation of right 3 lateral toes at [facility] Plan: hemodialysis today. Send PD fluid for cell count and Gram stain. We will try to resume PD exchanges tomorrow. Next hemodialysis treatment after today will be on Wednesday.
--- NOTE | 2024-02-05 11:41 | P.PN ---
Subjective February 05, 2024: Patient was seen evaluated. Yesterday during my exam he was having some could go by his brought in. He reported was spicy. His indicates that sometimes he gets sick if it is too spicy for him. Approximately 6 PM he began having nausea and vomiting. He threw up all through the night. This morning he was a bit confused not quite himself. Restless. He was scheduled for a dialysis catheter in the internal jugular. It could not be placed. I discussed his case with Dr. Duenas who ended up placing a femoral catheter. Patient was given pain medication to help him relax. Currently at bedside his and daughter and son-in-law. The patient is asleep. Objective - Vital Signs Vital signs: Vital Signs Temp 98.4 F 02/05/24 11:20 Pulse 88 02/05/24 11:20 Resp 18 02/05/24 11:20 BP 160/74 02/05/24 11:20 Pulse Ox 99 02/05/24 11:20 FiO2 Intake & Output 02/04/24 02/05/24 02/05/24 18:59 06:59 18:59 Intake Total 360 10 25 Balance 360 10 25 Intake: IV 10 25 Invasive Line 2 10 Oral 360 Other: Voiding Method Toilet Toilet Toilet # Voids 0 1 # Bowel Movements 1 - Exam General: The patient is asleep at this time. He is status post femoral dialysis catheter placed moments ago Neck: The neck is supple, there is no thyromegaly, lymphadenopathy, tenderness or JVD. Incision at times from his internal jugular catheter noted. Cardiovascular: S1S2 is normal, There is a regular rate and rhythm. No murmur, rub or gallop is appreciated. Respiratory: Lungs are lightly coarse to auscultation bilaterally, respirations are non-labored, breath sounds are equal. Gastrointestinal: Soft, non-distended, non-tender abdomen without masses or organomegaly noted. There is no rebound or guarding present. Bowel sounds are unremarkable. Nail dialysis catheter clean dry and intact Musculoskeletal: Normal ROM, no tenderness, There is no pedal edema. There is no calf tenderness or swelling. No cords were appreciated. Neurological: Patient is currently asleep there is no lateralizing noted. Skin: Skin is warm and dry and no rashes or lesions are noted. - Labs CBC & Chem 7: 02/03/24 07:51 02/05/24 06:08 Labs: Abnormal Lab Results - Last 24 Hours (Table) 02/04/24 02/04/24 02/04/24 Range/Units 12:03 16:35 20:13 Potassium (3.5-5.1) mmol/L BUN (9-20) mg/dL Creatinine (0.66-1.25) mg/dL Glucose (74-99) mg/dL POC Glucose (mg/dL) 136 H 252 H 212 H (70-110) mg/dL Calcium (8.4-10.2) mg/dL Total Protein (6.3-8.2) g/dL Albumin (3.5-5.0) g/dL 02/05/24 02/05/24 Range/Units 06:08 06:10 Potassium 3.4 L (3.5-5.1) mmol/L BUN 89 H (9-20) mg/dL Creatinine 9.86 H* (0.66-1.25) mg/dL Glucose 269 H (74-99) mg/dL POC Glucose (mg/dL) 277 H (70-110) mg/dL Calcium 8.0 L (8.4-10.2) mg/dL Total Protein 5.1 L (6.3-8.2) g/dL Albumin 2.7 L (3.5-5.0) g/dL Assessment and Plan Plan: Nausea and vomiting: Possibly food related versus infectious.: Other than his glucose, BUN and creatinine from his chronic renal failure being elevated his labs are relatively benign. End-stage renal dialysis on peritoneal dialysis, with fluid volume overload: Fluid will be cultured to rule out bacterial peritonitis. He received a hemodialysis catheter and will be dialyzed per nephrology soon. Fluid volume overload secondary to the above: Cardiology is following. Elevated troponin, related to the above, cardiology following Moderate to severe aortic stenosis: As above, will continue on carvedilol, amlodipine, aspirin CAD, history of CABG: As above Hyperlipidemia Diabetes mellitus with circulatory complications.: He will continue on his insulin 8 units 3 times daily Diabetes mellitus with specified complications. As above Diabetes with diabetic foot ulcer: He continues on Santyl and Dr. Odom is following this. The wound is at the amputation site of his third fourth and fifth toe on the right foot. History of ESBL in peritoneal fluid PAD, history of popliteal bypass 1 Dr. Odom is following Osteoarthritis Anemia of chronic disease: Monitoring Restless leg syndrome: Continue ropinirole Prior nicotine dependence: Stable At this time he will undergo hemodialysis per nephrology, wait on further rec ommendations from vascular surgery regarding his wound and his femoral catheter. He has Compazine and Zofran ordered for nausea and vomiting. He will continue on his other medications. Await further recommendations from cardiology. He will be reevaluated in the next 24 hours.
[2024-02-05 12:13] LABS: Glucose,Whole Blood 285 mg/dL (70-110)
[2024-02-05 16:38] LABS: Glucose,Whole Blood 229 mg/dL (70-110)
[2024-02-05 20:33] LABS: Glucose,Whole Blood 93 mg/dL (70-110)
[2024-02-05] MEDS ORDERED: HALOPERIDOL LACTATE 5 MG/ML 1 ML VIAL IVP PRN (20:50)
[2024-02-05 21:38] LABS: Basophils % (A) 0 %; Eosinophils # (A) 0.1 k/uL (0-0.7); Eosinophils % (A) 1 %; HCT 28.2 % (39.0-53.0); HGB 9.4 gm/dL (13.0-17.5); Lymphocytes # (A) 0.7 k/uL (1.0-4.8); Lymphocytes % (A) 7 %; MCH 32.8 pg (25.0-35.0); MCHC 33.3 g/dL (31.0-37.0); MCV 98.4 fL (80.0-100.0); Mean Platelet Volume 8.5; Monocytes # (A) 0.5 k/uL (0-1.0); Monocytes % (A) 6 %; Neutrophils # (A) 7.8 k/uL (1.3-7.7); Neutrophils % (A) 85 %; Platelet Count 184 k/uL (150-450); RBC 2.87 m/uL (4.30-5.90); RDW 13.9 % (11.5-15.5); WBC 9.2 k/uL (3.8-10.6)
[2024-02-05 23:09] LABS: Appearance,BF Clear (Clear)
[2024-02-06 06:12] LABS: Glucose,Whole Blood 116 mg/dL (70-110)
[2024-02-06 10:31] LABS: Basophils # (A) 0.1 k/uL (0-0.2); Basophils % (A) 1 %; Eosinophils # (A) 0.3 k/uL (0-0.7); Eosinophils % (A) 5 %; HCT 32.9 % (39.0-53.0); HGB 10.7 gm/dL (13.0-17.5); Lymphocytes # (A) 0.7 k/uL (1.0-4.8); Lymphocytes % (A) 11 %; MCH 32.1 pg (25.0-35.0); MCHC 32.4 g/dL (31.0-37.0); Mean Platelet Volume 8.5; Monocytes # (A) 0.4 k/uL (0-1.0); Monocytes % (A) 6 %; Neutrophils # (A) 5.1 k/uL (1.3-7.7); Neutrophils % (A) 76 %; Platelet Count 217 k/uL (150-450); RBC 3.33 m/uL (4.30-5.90); RDW 13.8 % (11.5-15.5); WBC 6.7 k/uL (3.8-10.6)
--- NOTE | 2024-02-06 10:38 | P.PN ---
Subjective Progress Note Date: 02/06/24 Principal diagnosis: CHF The patient is a 78-year-old gentleman with a past medical history significant for CAD status post CABG and also PAD with prior revascularization as well as valvular heart disease as well as cardiomyopathy and also multiple comorbid conditions including end-stage renal disease on peritoneal dialysis was admitted to the hospital with increasing shortness of breath and he was diagnosed with heart failure and felt to be in fluid overload. Beside that his troponin came in to be mildly abnormal. The patient was already scheduled to undergo transesophageal echocardiogram and heart catheterization by Dr. Macias this coming Wednesday. He was seen by the nephrology service and he was switched to undergo hemodialysis. And attempted to have a hemodialysis catheter from the left IJ was unsuccessful and he is in process of having a dialysis catheter from the femoral vein. February 05, 2024 The patient was seen this morning. He continues to have shortness of breath but he continues to be on oxygen. He is still in fluid overload with right and left failure. Dr. Odom is planning to perform dialysis catheter placement from the right common femoral vein and the patient will undergo hemodialysis after that. Meanwhile continue the current medical regimen. If the patient stays stable over the weekend he will undergo transesophageal echocardiogram and heart catheterization by Dr. Macias on Wednesday. The examination revealed significant systolic murmur at the right upper sternal border with bilateral rhonchi and bilateral lower extremities edema February 06, 2024 The patient was seen and evaluated this morning. He is doing better. The shor tness of breath has improved significantly after he underwent hemodialysis yesterday and peritoneal dialysis today. No chest pain. The shortness of breath is better. The examination revealed regular rhythm with significant crescendo-decrescendo murmur and decrease in the intensity of S2 and bilateral expiratory wheezing and mild bilateral lower extremities edema. The plan to pursue with a transesophageal echocardiogram and heart catheterization tomorrow by Dr. Macias. Will keep the patient n.p.o. after midnight today. Assessment Coronary artery disease status post CABG Cardiomyopathy Peripheral arterial disease Valvular heart disease with aortic stenosis Heart failure End-stage renal disease on dialysis Plan Continue the current medical regimen TTE and heart catheterization by Dr. Macias tomorrow Objective - Vital Signs Vital signs: Vital Signs Temp 98.5 F 02/06/24 08:03 Pulse 81 02/06/24 08:03 Resp 15 02/06/24 08:03 BP 156/73 02/06/24 08:03 Pulse Ox 97 02/06/24 08:03 FiO2 Intake & Output 02/05/24 02/06/24 02/06/24 18:59 06:59 18:59 Intake Total 25 710 Output Total 1900 Balance 25 -1190 Intake: IV 25 10 Invasive Line 5 10 Hemodialysis 700 Output: Hemodialysis 1900 Other: Voiding Method Toilet Toilet Toilet Bedside Commode Bedside Commode # Voids 0 # Bowel Movements 3 - Labs CBC & Chem 7: 02/06/24 10:11 02/05/24 06:08 Labs: Abnormal Lab Results - Last 24 Hours (Table) 02/05/24 02/05/24 02/05/24 Range/Units 12:02 16:37 21:15 RBC 2.87 L (4.30-5.90) m/uL Hgb 9.4 L (13.0-17.5) gm/dL Hct 28.2 L (39.0-53.0) % Neutrophils # 7.8 H (1.3-7.7) k/uL Lymphocytes # 0.7 L (1.0-4.8) k/uL POC Glucose (mg/dL) 285 H 229 H (70-110) mg/dL 02/06/24 02/06/24 Range/Units 06:10 10:11 RBC 3.33 L (4.30-5.90) m/uL Hgb 10.7 L (13.0-17.5) gm/dL Hct 32.9 L (39.0-53.0) % Neutrophils # (1.3-7.7) k/uL Lymphocytes # 0.7 L (1.0-4.8) k/uL POC Glucose (mg/dL) 116 H (70-110) mg/dL
[2024-02-06 10:50] LABS: ALT 26 U/L (4-49); AST 33 U/L (17-59); African American GFR (CKD) 8 (>60 ml/min/1.73 sqM); Albumin 2.9 g/dL (3.5-5.0); Alkaline Phosphatase 63 U/L (38-126); Anion Gap 10 mmol/L; Blood Urea Nitrogen 63 mg/dL (9-20); Calcium 8.2 mg/dL (8.4-10.2); Carbon Dioxide 29 mmol/L (22-30); Chloride 100 mmol/L (98-107); Glucose 160 mg/dL (74-99); Non-African American GFR(CKD) 7 (>60 ml/min/1.73 sqM); Potassium 3.5 mmol/L (3.5-5.1); Sodium 139 mmol/L (137-145); Total Bilirubin 0.4 mg/dL (0.2-1.3); Total Protein 5.6 g/dL (6.3-8.2)
--- NOTE | 2024-02-06 11:09 | P.PN ---
Subjective February 05, 2024: Patient was seen evaluated. Yesterday during my exam he was having some could go by his brought in. He reported was spicy. His indicates that sometimes he gets sick if it is too spicy for him. Approximately 6 PM he began having nausea and vomiting. He threw up all through the night. This morning he was a bit confused not quite himself. Restless. He was scheduled for a dialysis catheter in the internal jugular. It could not be placed. I discussed his case with Dr. Duenas who ended up placing a femoral catheter. Patient was given pain medication to help him relax. Currently at bedside his and daughter and son-in-law. The patient is asleep. February 06, 2024: Patient is reevaluated today. Overnight he got some sleep. Initially in the early evening he was confused and combative. Haldol was ordered but he did not receive a dose. He quieted down slept and this morning he is back to his normal self. He is tolerating some food at this time. He is doing peritoneal dialysis at this time. He did do hemodialysis yesterday once. He is questioning whether he should proceed with transitioning hemodialysis even though he is tolerating peritoneal dialysis well. Scheduled for a PARTH and cardiac catheterization tomorrow. Vital signs remained stable overnight. He is afebrile. Laboratory studies show no white count. He remains anemic. Electrolytes are essentially normal with exception of his BUN and creatinine at this time. Lactic acid last night was normal. Objective - Vital Signs Vital signs: Vital Signs Temp 98.5 F 02/06/24 08:03 Pulse 81 02/06/24 08:03 Resp 15 02/06/24 08:03 BP 156/73 02/06/24 08:03 Pulse Ox 97 02/06/24 08:03 FiO2 Intake & Output 02/05/24 02/06/24 02/06/24 18:59 06:59 18:59 Intake Total 25 710 Output Total 1900 Balance 25 -1190 Intake: IV 25 10 Invasive Line 5 10 Hemodialysis 700 Output: Hemodialysis 1900 Other: Voiding Method Toilet Toilet Toilet Bedside Commode Bedside Commode # Voids 0 # Bowel Movements 3 - Exam General: The patient is asleep at this time. He is status post femoral dialysis catheter placed moments ago Neck: The neck is supple, there is no thyromegaly, lymphadenopathy, tenderness or JVD. Incision at times from his internal jugular catheter noted. Cardiovascular: S1S2 is normal, There is a regular rate and rhythm. Large 2/6 systolic murmur throughout, rub or gallop is appreciated. The murmur is not new, Respiratory: Lungs are lightly coarse to auscultation bilaterally, respirations are non-labored, breath sounds are equal. Gastrointestinal: Soft, non-distended, non-tender abdomen without masses or organomegaly noted. There is no rebound or guarding present. Bowel sounds are unremarkable. Nail dialysis catheter clean dry and intact Musculoskeletal: Normal ROM, no tenderness, There is no pedal edema. There is no calf tenderness or swelling. No cords were appreciated. Neurological: Patient is currently asleep there is no lateralizing noted. Skin: Skin is warm and dry and no rashes or lesions are noted. - Labs CBC & Chem 7: 02/06/24 10:11 02/06/24 10:11 Labs: Abnormal Lab Results - Last 24 Hours (Table) 02/05/24 02/05/24 02/05/24 Range/Units 12:02 16:37 21:15 RBC 2.87 L (4.30-5.90) m/uL Hgb 9.4 L (13.0-17.5) gm/dL Hct 28.2 L (39.0-53.0) % Neutrophils # 7.8 H (1.3-7.7) k/uL Lymphocytes # 0.7 L (1.0-4.8) k/uL BUN (9-20) mg/dL Creatinine (0.66-1.25) mg/dL Glucose (74-99) mg/dL POC Glucose (mg/dL) 285 H 229 H (70-110) mg/dL Calcium (8.4-10.2) mg/dL Total Protein (6.3-8.2) g/dL Albumin (3.5-5.0) g/dL 02/06/24 02/06/24 02/06/24 Range/Units 06:10 10:11 10:11 RBC 3.33 L (4.30-5.90) m/uL Hgb 10.7 L (13.0-17.5) gm/dL Hct 32.9 L (39.0-53.0) % Neutrophils # (1.3-7.7) k/uL Lymphocytes # 0.7 L (1.0-4.8) k/uL BUN 63 H (9-20) mg/dL Creatinine 7.28 H* (0.66-1.25) mg/dL Glucose 160 H (74-99) mg/dL POC Glucose (mg/dL) 116 H (70-110) mg/dL Calcium 8.2 L (8.4-10.2) mg/dL Total Protein 5.6 L (6.3-8.2) g/dL Albumin 2.9 L (3.5-5.0) g/dL Assessment and Plan Plan: Nausea and vomiting: Resolved Confusion: Resolved End-stage renal dialysis on peritoneal dialysis, with fluid volume overload: Fluid will be cultured to rule out bacterial peritonitis. He received a hemodialysis catheter and dialyzed yesterday. Fluid volume overload secondary to the above: Cardiology is following. Elevated troponin, related to the above, cardiology following Moderate to severe aortic stenosis: As above, will continue on carvedilol, amlodipine, aspirin, PARTH and cardiac catheterization tomorrow CAD, history of CABG: As above Hyperlipidemia Diabetes mellitus with circulatory complications.: He will continue on his insulin 8 units 3 times daily Diabetes mellitus with specified complications. As above Diabetes with diabetic foot ulcer: He continues on Santyl and Dr. Odom is following this. The wound is at the amputation site of his third fourth and fifth toe on the right foot. History of ESBL in peritoneal fluid, cultures are pending PAD, history of popliteal bypass 1 Dr. Odom is following Osteoarthritis Anemia of chronic disease: Monitoring Restless leg syndrome: Continue ropinirole Prior nicotine dependence: Stable His mentation has returned to baseline. Most likely sleep deprivation due to the overnight nausea and vomiting 2 evenings ago. He is undergoing peritoneal dialysis at this time. He did hemodialysis yesterday. Will wait on further recommendations from nephrology regarding this. Cardiology is planning a PARTH and cardiac catheterization tomorrow. Will await the results. Ferdinand I discussed ongoing peritoneal dialysis as opposed to changing to hemodialysis and how you are very limited as far as mobility with hemodialysis. He seems to understand at this point will discuss further with nephrology. He will be reevaluated by family medicine in the next 24 hours.
--- NOTE | 2024-02-06 11:33 | P.PN ---
Subjective patient is seen for follow-up for end-stage renal disease. Volume status is much improved. however patient remains short of breath particularly on exertion. Status post temporary left femoral catheter placement yesterday. Patient was dialyzed yesterday with UF of 1.9 L. Patient was very restless during his hemodialysis treatment. He continues to have good UF with peritoneal dialysis as well. He will be continued with peritoneal dialysis today and we will attempt another session of hemodialysis tomorrow. Patient will need right IJ permacath placement if he is able to tolerate hemodialysis. The veins were coiled according to Dr. Odom and therefore IJ permacath could not be placed yesterday. If patient is not able to tolerate hemodialysis well he is willing to continue with peritoneal dialysis. Objective - Vital Signs Vital signs: Vital Signs Temp 98.5 F 02/06/24 08:03 Pulse 81 02/06/24 08:03 Resp 15 02/06/24 08:03 BP 156/73 02/06/24 08:03 Pulse Ox 97 02/06/24 08:03 FiO2 Intake & Output 02/05/24 02/06/24 02/06/24 18:59 06:59 18:59 Intake Total 25 710 Output Total 1900 Balance 25 -1190 Intake: IV 25 10 Invasive Line 5 10 Hemodialysis 700 Output: Hemodialysis 1900 Other: Voiding Method Toilet Toilet Toilet Bedside Commode Bedside Commode # Voids 0 # Bowel Movements 3 - Exam Patient is awake, comfortable, no acute distress. He is sitting up in a bedside chair. Feels quite good. Able to eat well. Examination of the heart S1 and S2 Examination of the lungs decreased breath sounds at the bases Abdomen is soft nontender Examination of lower extremities shows chronic edema 3-4+, decreasing. Left foot is wrapped - Labs CBC & Chem 7: 02/06/24 10:11 02/06/24 10:11 Labs: Abnormal Lab Results - Last 24 Hours (Table) 02/05/24 02/05/24 02/05/24 Range/Units 12:02 16:37 21:15 RBC 2.87 L (4.30-5.90) m/uL Hgb 9.4 L (13.0-17.5) gm/dL Hct 28.2 L (39.0-53.0) % Neutrophils # 7.8 H (1.3-7.7) k/uL Lymphocytes # 0.7 L (1.0-4.8) k/uL BUN (9-20) mg/dL Creatinine (0.66-1.25) mg/dL Glucose (74-99) mg/dL POC Glucose (mg/dL) 285 H 229 H (70-110) mg/dL Calcium (8.4-10.2) mg/dL Total Protein (6.3-8.2) g/dL Albumin (3.5-5.0) g/dL 02/06/24 02/06/24 02/06/24 Range/Units 06:10 10:11 10:11 RBC 3.33 L (4.30-5.90) m/uL Hgb 10.7 L (13.0-17.5) gm/dL Hct 32.9 L (39.0-53.0) % Neutrophils # (1.3-7.7) k/uL Lymphocytes # 0.7 L (1.0-4.8) k/uL BUN 63 H (9-20) mg/dL Creatinine 7.28 H* (0.66-1.25) mg/dL Glucose 160 H (74-99) mg/dL POC Glucose (mg/dL) 116 H (70-110) mg/dL Calcium 8.2 L (8.4-10.2) mg/dL Total Protein 5.6 L (6.3-8.2) g/dL Albumin 2.9 L (3.5-5.0) g/dL Assessment and Plan Assessment: 1. End-stage renal disease on peritoneal dialysis currently maintained on 4.25% exchanges every 4 hours for volume overload. patient will be switching to in center hemodialysis if he is able to tolerate hemodialysis and we can obtain an IJ permacath. Volume status has improved and therefore patient is willing to continue with peritoneal dialysis if he does not tolerate hemodialysis well. 2. Volume overload slowly improving 3. CK D mineral bone disorder 4. Chronic left lower extremity wound being followed by vascular surgery. history of recent amputation of right 3 lateral toes at [facility] Plan: hemodialysis in a.m. Continue with PD exchanges for now.
[2024-02-06 11:56] LABS: Glucose,Whole Blood 187 mg/dL (70-110)
[2024-02-06] MEDS: PANTOPRAZOLE 40 MG TABLET PO SCH (14:36)
[2024-02-06 16:39] LABS: Glucose,Whole Blood 124 mg/dL (70-110)
[2024-02-06 20:20] LABS: Glucose,Whole Blood 312 mg/dL (70-110)
[2024-02-07 06:32] LABS: Glucose,Whole Blood 217 mg/dL (70-110)
[2024-02-07 09:49] LABS: ALT 24 U/L (4-49); AST 28 U/L (17-59); African American GFR (CKD) 7 (>60 ml/min/1.73 sqM); Albumin 2.7 g/dL (3.5-5.0); Alkaline Phosphatase 63 U/L (38-126); Anion Gap 9 mmol/L; Blood Urea Nitrogen 61 mg/dL (9-20); Calcium 8.2 mg/dL (8.4-10.2); Carbon Dioxide 28 mmol/L (22-30); Chloride 102 mmol/L (98-107); Glucose 210 mg/dL (74-99); Non-African American GFR(CKD) 6 (>60 ml/min/1.73 sqM); Potassium 3.4 mmol/L (3.5-5.1); Sodium 139 mmol/L (137-145); Total Bilirubin 0.4 mg/dL (0.2-1.3); Total Protein 5.3 g/dL (6.3-8.2)
--- NOTE | 2024-02-07 10:04 | P.PN ---
Subjective Patient is seen in follow-up for end-stage renal disease. Currently doing PD exchanges without any problems. Patient refusing any further hemodialysis. Hemodynamically stable. Vital signs are stable. General: No acute distress. HEENT: On nasal cannula. LUNGS: No audible rhonchi or wheezes. HEART: Rate and Rhythm are regular. ABDOMEN: Nontender. EXTREMITITES: No edema. No drainage noted. Objective - Vital Signs Vital signs: Vital Signs Temp 98.2 F 02/07/24 08:00 Pulse 70 02/07/24 08:00 Resp 16 02/07/24 08:00 BP 137/58 02/07/24 08:00 Pulse Ox 100 02/07/24 08:00 FiO2 Intake & Output 02/06/24 02/07/24 02/07/24 18:59 06:59 18:59 Intake Total 118 120 Balance 118 120 Weight 66.5 kg Intake: Oral 118 120 Other: Voiding Method Toilet Toilet Bedside Commode Bedside Commode # Voids 0 0 - Labs CBC & Chem 7: 02/06/24 10:11 02/07/24 08:08 Labs: Abnormal Lab Results - Last 24 Hours (Table) 02/06/24 02/06/24 02/06/24 Range/Units 10:11 10:11 11:54 RBC 3.33 L (4.30-5.90) m/uL Hgb 10.7 L (13.0-17.5) gm/dL Hct 32.9 L (39.0-53.0) % Lymphocytes # 0.7 L (1.0-4.8) k/uL Potassium (3.5-5.1) mmol/L BUN 63 H (9-20) mg/dL Creatinine 7.28 H* (0.66-1.25) mg/dL Glucose 160 H (74-99) mg/dL POC Glucose (mg/dL) 187 H (70-110) mg/dL Calcium 8.2 L (8.4-10.2) mg/dL Total Protein 5.6 L (6.3-8.2) g/dL Albumin 2.9 L (3.5-5.0) g/dL 02/06/24 02/06/24 02/07/24 Range/Units 16:37 20:18 06:31 RBC (4.30-5.90) m/uL Hgb (13.0-17.5) gm/dL Hct (39.0-53.0) % Lymphocytes # (1.0-4.8) k/uL Potassium (3.5-5.1) mmol/L BUN (9-20) mg/dL Creatinine (0.66-1.25) mg/dL Glucose (74-99) mg/dL POC Glucose (mg/dL) 124 H 312 H 217 H (70-110) mg/dL Calcium (8.4-10.2) mg/dL Total Protein (6.3-8.2) g/dL Albumin (3.5-5.0) g/dL 02/07/24 Range/Units 08:08 RBC (4.30-5.90) m/uL Hgb (13.0-17.5) gm/dL Hct (39.0-53.0) % Lymphocytes # (1.0-4.8) k/uL Potassium 3.4 L (3.5-5.1) mmol/L BUN 61 H (9-20) mg/dL Creatinine 7.87 H* (0.66-1.25) mg/dL Glucose 210 H (74-99) mg/dL POC Glucose (mg/dL) (70-110) mg/dL Calcium 8.2 L (8.4-10.2) mg/dL Total Protein 5.3 L (6.3-8.2) g/dL Albumin 2.7 L (3.5-5.0) g/dL Microbiology - Last 24 Hours (Table) 02/05/24 12:57 Gram Stain - Preliminary Dialysate Body Fluid Culture - Preliminary Assessment and Plan Plan: Assessment: 1. End-stage renal disease maintained on peritoneal dialysis. Also received 1 treatment of hemodialysis this admission via femoral catheter. Patient wishes to continue peritoneal dialysis and is refusing any further hemodialysis treatments. 2. Hypertension with chronic kidney disease. Stable. 3. Chronic kidney disease mineral bone disease maintained on PhosLo. 4. Volume overload. Improved with ultrafiltration. 5. Left lower extremity wound being followed by vascular surgery. Recently had toes amputated as well. 6. Hypokalemia from PD losses and poor intake. 7. Coronary artery disease status post CABG. Scheduled for cardiac catheterization today. Plan: Maintain current PD exchanges. Replace potassium. Discontinue hemodialysis catheter. Case discussed with vascular surgery. If patient wishes to do hemodialysis in future, patient will need imaging done by vascular surgery and subsequently get a permacath due to torturous vessels. No evidence of peritonitis. Dialysate WBC count 3.
[2024-02-07] MEDS: ASPIRIN 325 MG TAB PO STA (11:04)
[2024-02-07] MEDS: ATORVASTATIN 80 MG TAB PO STA (11:04)
[2024-02-07 11:44] LABS: Glucose,Whole Blood 252 mg/dL (70-110)
--- NOTE | 2024-02-07 12:09 | P.PN ---
Subjective Progress Note Date: 02/14/24 H&P Date: 02/03/24 Chief Complaint: Progressive dyspnea This is a 78-year-old gentleman with past medical history significant for end- stage renal disease on peritoneal dialysis, CAD, PAD, diabetes mellitus and multiple other medical issues, presented to the ER with complaints of progressive shortness of breath over the last month, orthopnea and weight gain of 10 pounds. Reports he has been compliant with his peritoneal dialysis exchanges and has not missed any. EKG reported sinus rhyth with nonspecific ST and T wave abnormality. Chest x-ray reporting CHF with interstitial pulmonary edema, small bilateral pleural effusions with adjacent atelectasis and/or consolidation. Viral studies negative. Denies chills, fevers, nausea or vomiting. Afebrile, WBC 8.3, hemoglobin 10.8, platelets 250, electrolytes within normal limits, bicarb 25, BUN 102, creatinine 9.76. Blood sugars uncontrolled in the 300s. 02/04/2024 continues on PD as per nephrology, volume status improving. Maintaining O2 sats in the high 90s on 2 L nasal cannula, which can be further titrated. Hypertensive, Coreg initiated, blood pressures improving. Denies lightheadedness, dizziness or focal deficits. Denies headache. Sitting up at bedside, on the phone with his significant other. Denies chest pain, palpitations or shortness of breath. Echo completed, results pending. Reports he slept very well, 8 solid hours-which he states is very unusual for him. 02/07/2024 NPO, scheduled for PARHT and heart catheterization today. Potassium 3.4, replacement ordered .declining further hemodialysis. Potassium 3.4, replacement ordered. Afebrile. Denies chest pain, palpitations or increased shortness of breath. Maintaining O2 sats in the high 90s on 2.5 L nasal cannula . Objective - Vital Signs Vital signs: Vital Signs Temp 98.2 F 02/07/24 10:20 Pulse 79 02/07/24 10:20 Resp 16 02/07/24 08:00 BP 116/38 02/07/24 10:20 Pulse Ox 100 02/07/24 08:00 FiO2 Intake & Output 02/06/24 02/07/24 02/07/24 18:59 06:59 18:59 Intake Total 118 120 Balance 118 120 Weight 66.5 kg Intake: Oral 118 120 Other: Voiding Method Toilet Toilet Bedside Commode Bedside Commode # Voids 0 0 - Exam - Exam GENERAL: Alert and oriented 3, Sitting up at side of bed, no acute distress. HEENT: Normocephalic, FERNANDO,sclera anicteric, conjunctiva normal.MMM. NECK: Supple, no JVD. LUNGS: Unlabored, equal air entry, bilateral breath sounds clear. HEART: Regular rate and rhythm without , systolic ejection murmur ABDOMEN: Soft, nontender, normoactive bowel sounds. No guarding, no rebound. No masses appreciated. Peritoneal dialysis catheter present without irritation. EXTREMITIES: Decreasing lower extremity edema, no clubbing or cyanosis. NEUROLOGICAL: Cranial nerves II through XII grossly intact. No focal deficits. SKIN: Warm, Dry, no rashes noted. - Labs CBC & Chem 7: 02/06/24 10:11 02/07/24 08:08 Labs: Abnormal Lab Results - Last 24 Hours (Table) 02/06/24 02/06/24 02/06/24 Range/Units 11:54 16:37 20:18 Potassium (3.5-5.1) mmol/L BUN (9-20) mg/dL Creatinine (0.66-1.25) mg/dL Glucose (74-99) mg/dL POC Glucose (mg/dL) 187 H 124 H 312 H (70-110) mg/dL Calcium (8.4-10.2) mg/dL Total Protein (6.3-8.2) g/dL Albumin (3.5-5.0) g/dL 02/07/24 02/07/24 02/07/24 Range/Units 06:31 08:08 11:37 Potassium 3.4 L (3.5-5.1) mmol/L BUN 61 H (9-20) mg/dL Creatinine 7.87 H* (0.66-1.25) mg/dL Glucose 210 H (74-99) mg/dL POC Glucose (mg/dL) 217 H 252 H (70-110) mg/dL Calcium 8.2 L (8.4-10.2) mg/dL Total Protein 5.3 L (6.3-8.2) g/dL Albumin 2.7 L (3.5-5.0) g/dL Microbiology - Last 24 Hours (Table) 02/05/24 12:57 Gram Stain - Preliminary Dialysate Body Fluid Culture - Preliminary Assessment and Plan Assessment: End-stage renal dialysis on peritoneal dialysis, with fluid volume overload. Patient has discussed with nephrology about switching over to hemodialysis this admission. Fluid volume overload secondary to the above Elevated troponin, related to the above, cardiology following Moderate to severe aortic stenosis CAD, history of CABG Hyperlipidemia Diabetes mellitus History of ESBL in peritoneal fluid COVID-19 infection 2020 PAD, history of popliteal bypass, history of right second toe amputation Osteoarthritis Anemia of chronic disease Restless leg syndrome Prior nicotine dependence Hypokalemia Plan: Continue on current medication regimen ,monitoring and symptomatic treatment. NPO.PARTH and cardiac cath scheduled for today. PD exchanges as per nephrology. Patient declining further hemodialysis .per nephrology, he modialysis catheter ordered to be discontinued. Discharge planning in progress pending cardiology procedure results. The impression and plan of care has been dictated as directed. : I performed a history and examination of this patient, discussed the same with the dictator. I agree with the dictator's note ,documented as a scribe. Any additional findings or plans will be noted.
--- NOTE | 2024-02-07 12:24 | P.PN ---
Subjective Progress Note Date: 02/07/24 CHF The patient is a 78-year-old gentleman with a past medical history significant for CAD status post CABG and also PAD with prior revascularization as well as valvular heart disease as well as cardiomyopathy and also multiple comorbid conditions including end-stage renal disease on peritoneal dialysis was admitted to the hospital with increasing shortness of breath and he was diagnosed with heart failure and felt to be in fluid overload. Beside that his troponin came in to be mildly abnormal. The patient was already scheduled to undergo transesophageal echocardiogram and heart catheterization by Dr. Macias this coming Wednesday. He was seen by the nephrology service and he was switched to und ergo hemodialysis. And attempted to have a hemodialysis catheter from the left IJ was unsuccessful and he is in process of having a dialysis catheter from the femoral vein. February 05, 2024 The patient was seen this morning. He continues to have shortness of breath but he continues to be on oxygen. He is still in fluid overload with right and left failure. Dr. Odom is planning to perform dialysis catheter placement from the right common femoral vein and the patient will undergo hemodialysis after that. Meanwhile continue the current medical regimen. If the patient stays stable over the weekend he will undergo transesophageal echocardiogram and heart catheterization by Dr. Macias on Wednesday. The examination revealed significant systolic murmur at the right upper sternal border with bilateral rhonchi and bilateral lower extremities edema February 06, 2024 The patient was seen and evaluated this morning. He is doing better. The shortness of breath has improved significantly after he underwent hemodialysis yesterday and peritoneal dialysis today. No chest pain. The shortness of breath is better. The examination revealed regular rhythm with significant crescendo-decrescendo murmur and decrease in the intensity of S2 and bilateral expiratory wheezing and mild bilateral lower extremities edema. The plan to pursue with a transesophageal echocardiogram and heart catheterization tomorrow by Dr. Macias. Will keep the patient n.p.o. after midnight today. 02/06 Patient states that he felt better yesterday but not clear why he is not feeling well mostly because he is not able to eat. Patient has refused hemodialysis and will only do peritoneal dialysis. He denies any shortness of breath. He states he feels tired and weak. Blood pressure 137/58, heart rate 70, pulse ox 100% on 2 and half liters nasal cannula. He is scheduled for PARTH and cardiac catheterization with Dr. Macias today. Physical Examination Gen: This is a 78-year-old male sitting in chair and appears to be comfortable. No acute distress. HEENT: Head is atraumatic, normocephalic. Pupils equal, round. Sclerae is anicteric. NECK: Supple. No JVD. No lymphadenopathy. No thyromegaly. LUNGS: Bilateral air entry. No intercostal retractions. HEART: Regular rate and rhythm. Systolic murmur right upper sternal border. ABDOMEN: Soft. Bowel sounds are present. No masses. No tenderness. EXTREMITIES: + Bilateral lower extremity edema. No calf tenderness. NEUROLOGICAL: Patient is awake, alert and oriented x3. Cranial nerves 2 through 12 are grossly intact. Assessment Coronary artery disease status post CABG Cardiomyopathy Peripheral arterial disease Valvular heart disease with aortic stenosis Heart failure End-stage renal disease on dialysis Plan Continue the current medical regimen PARTH and heart catheterization by Dr. Macias today Nurse practitioner note has been reviewed, I agree with documented findings and plan of care. Patient was seen and examined. Objective - Vital Signs Vital signs: Vital Signs Temp 98.2 F 02/07/24 08:00 Pulse 70 02/07/24 08:00 Resp 16 02/07/24 08:00 BP 137/58 02/07/24 08:00 Pulse Ox 100 02/07/24 08:00 FiO2 Intake & Output 02/06/24 02/07/24 02/07/24 18:59 06:59 18:59 Intake Total 118 120 Balance 118 120 Weight 66.5 kg Intake: Oral 118 120 Other: Voiding Method Toilet Toilet Bedside Commode Bedside Commode # Voids 0 0 - Labs CBC & Chem 7: 02/06/24 10:11 02/07/24 08:08 Labs: Abnormal Lab Results - Last 24 Hours (Table) 02/06/24 02/06/24 02/06/24 Range/Units 10:11 11:54 16:37 Potassium (3.5-5.1) mmol/L BUN 63 H (9-20) mg/dL Creatinine 7.28 H* (0.66-1.25) mg/dL Glucose 160 H (74-99) mg/dL POC Glucose (mg/dL) 187 H 124 H (70-110) mg/dL Calcium 8.2 L (8.4-10.2) mg/dL Total Protein 5.6 L (6.3-8.2) g/dL Albumin 2.9 L (3.5-5.0) g/dL 02/06/24 02/07/24 02/07/24 Range/Units 20:18 06:31 08:08 Potassium 3.4 L (3.5-5.1) mmol/L BUN 61 H (9-20) mg/dL Creatinine 7.87 H* (0.66-1.25) mg/dL Glucose 210 H (74-99) mg/dL POC Glucose (mg/dL) 312 H 217 H (70-110) mg/dL Calcium 8.2 L (8.4-10.2) mg/dL Total Protein 5.3 L (6.3-8.2) g/dL Albumin 2.7 L (3.5-5.0) g/dL Microbiology - Last 24 Hours (Table) 02/05/24 12:57 Gram Stain - Preliminary Dialysate Body Fluid Culture - Preliminary
[2024-02-07 14:26] VITALS: BMI 23.6
[2024-02-07] MEDS ORDERED: fentaNYL (PF) 50 MCG/ML 2 ML AMP ONE (16:05)
[2024-02-07] MEDS: fentaNYL (PF) 50 MCG/ML 2 ML AMP IVP ONE ×3 (16:10→17:49)
[2024-02-07] MEDS: MIDAZOLAM 2 MG/2 ML VIAL IVP ONE ×2 (16:10→16:15)
[2024-02-07] MEDS: BENZOCAINE SPRAY 1 CAN TOPICAL ONE (16:10)
--- NOTE | 2024-02-07 16:31 | P.TEE ---
Description of Procedure(s): Procedure performed: Transesophageal Echocardiogram with color flow doppler, pulsed wave doppler and continuous wave doppler, moderate conscious sedation Moderate conscious sedation: Moderate conscious sedation was supplied with direct supervision of myself using Versed and Fentanyl. Complications: none Indications: moderate to severe aortic stenosis with a low-flow low-gradient aortic stenosis PROCEDURE: After the risks, benefits and alternatives of the above mentioned procedure was explained in detail with the patient, informed consent was obtained. Patient was brought to the lab in a fasting state. Patient was given IV Versed and Fentanyl for sedation. The throat was sprayed with Hurricane to anesthetize the throat. A lubricated Omni probe was then introduced into the esophagus and stomach and multiple views were obtained. 2D echo with color flow doppler, pulsed wave doppler and continuous wave doppler was utilized. Agitated saline bubbles were injected to assess for any intra-atrial shunt. The probe was then removed. Patient tolerated the procedure well. Patient was transferred to the post procedure area in stable and satisfactory condition. FINDINGS: 1. The aortic valve is tricuspid with mainly fusion of the right and left coronary cusps with severe aortic stenosis, aortic valve area 0.7 cm by planimetry. 2. The mitral valve appears be normal with mild mitral regurgitation. 3. Tricuspid valve appears to be normal. 4. The interatrial septum is intact. No evidence of PFO. 5. Left atrial appendage is free of clot. 6. Left ventricular ejection fraction is 50-55%
[2024-02-07] MEDS: LIDOCAINE 1% INJ 10MG/ML (20 ML MDV) SQ ONE (16:50)
[2024-02-07] MEDS ORDERED: HEPARIN SODIUM 1,000 UN/ML (10ML VL) ONE (16:59)
[2024-02-07 17:14] LABS: O2 Sat Blood Gas 74.7 %
[2024-02-07] MEDS ORDERED: NALOXONE 0.4 MG/ML 1 ML VIAL ONE (17:26)
[2024-02-07 17:46] LABS: O2 Sat Blood Gas 96.6 %
[2024-02-07] MEDS: SODIUM CHLORIDE 0.9% 1,000 ML IV ONE (17:51)
[2024-02-07 18:13] LABS: Glucose,Whole Blood 321 mg/dL (70-110)
[2024-02-07] MEDS: POTASSIUM CHLORIDE ER 20 MEQ TAB.ER PO STA (18:21)
[2024-02-07 20:14] LABS: Glucose,Whole Blood 261 mg/dL (70-110)
--- NOTE | 2024-02-07 23:11 | P.CARDCATH ---
Description of Procedure: PROCEDURES PERFORMED: Left and right heart catheterization, bilateral coronary angiography, BALTAZAR to LAD angiography, SVG to PDA, diagonal and OM1 angiography, ultrasound guided arterial access INDICATION: Aortic stenosis CONSENT:I have discussed the risks, benefits and alternative therapies for the above-mentioned procedure and for both sedation/analgesia as well as necessary blood product administration, if indicated, as they pertain to this patient. The patient has indicated understanding and acceptance of the risks and proc edures discussed. PROCEDURE: After the risks, benefits and alternatives of the above mentioned procedure explained in detail with the patient, informed consent was obtained. Patient was taken to the catheterization lab and prepped and draped in usual fashion. Ultrasound guidance was used to assess for arterial access. 1% lidocaine was used to anesthetize the left radial artery. A 6-Canadian sheath was placed in the left radial artery using modified Seldinger technique and ultrasound guidance however unable to fully advance sheath secondary to calcified arteries. A 0.035 J wire was able to be advanced and initial attempted to advance a 5Fr catheter however not able to move at all past the forearm. Therefore the left radial site was abandoned and a 6Fr sheath was placed in the right femoral artery using ultrasound guidance and micropuncture technique. A 6Fr sheath was placed in the right brachial vein using ultrasound guidance and Seldinger technique. A 6Fr [place] catheter was advanced into the RA, RV, PA and PCWP position and pressure and oxygen saturation measurements were made. Left coronary angiography was performed with a 5-Canadian JL 4.0 catheter and right coronary angiography was performed with a 5-Canadian AR2 catheter in various views. SVG to diagonal 1, SVG to OM1, SVG to presumed OM2 and BALTAZAR to LAD angiography was performed with the 6Fr FR4 catheter. The SVG to PDA angiography was performed with the AR2 catheter. The left radial sheath was removed and a TR band was placed with hemostasis achieved. Femoral angiogram showed adequate anatomy for closure and a 6Fr Angioseal was placed with hemostasis achieved, The patient tolerated the procedure well. Patient was transported back to the post catheterization holding area in stable condition. Conscious Sedation: Patient was monitored under the direct supervision of myself for conscious sedation using Versed and fentanyl for a total duration of 45 minutes HEMODYNAMICS: Ao: 119/38 PCWP: 17 PA: 44/11 RV: 40/2 RA: 6 PA oxygen saturation: 65% RA oxygen saturation: 75% Right femoral oxygen saturation: 96% CO by BRYNN: 8.5 L/min CI by BRYNN: 4.9 L/min/m2 CO by thermodilution: 4.5 L/min CI by thermodilution: 2.6 L/min/m2 SELECTIVE CORONARY ARTERIOGRAPHY: LEFT MAIN: The left main is a large caliber vessel which bifurcates into the LAD and circumflex. There is no significant stenosis. LEFT ANTERIOR DESCENDING CORONARY ARTERY: LAD is a large caliber vessel which wraps around to the apex. There is 100% proximal LAD stenosis. LEFT CIRCUMFLEX CORONARY ARTERY: Left circumflex is a moderate caliber vessel with 100% proximal circumflex stenosis. RIGHT CORONARY ARTERY: The right coronary artery is a large caliber vessel which gives off a PDA and PLV branch and is the dominant vessel. There is long segment of 70% and more focal 95% stenosis with some competitive flow to the PDA BALTAZAR to LAD: widely patent however some competitive flow with the SVG to diagonal SVG to diagonal 1: widely patent with mild 30% stenosis SVG to OM1: widely patent SVG to PDA: widely patent. There is a 90% stenosis of the PDA just distal to the anastamosis SVG to (presumed OM2): occluded FINAL IMPRESSION: 1. Severe [place] CAD as described above including 100% LAD, 100% circumflex, 99% RCA stenosis 2. Patent SVG to PDA, SVG to OM1, SVG to diagonal, BALTAZAR to LAD with 1 occluded graft (assumed SVG to OM2) 3. Mildly elevated left sided filling pressure and normal right sided filling pressures 4. Normal CO/CI PLAN: 1. Aggressive risk factor modification per most recent ACC/AHA guidelines. 2. Consider workup for AVR.
[2024-02-08 05:54] LABS: Glucose,Whole Blood 109 mg/dL (70-110)
--- NOTE | 2024-02-08 10:39 | P.PN ---
Subjective Patient is seen in follow-up for end-stage renal disease. Currently doing PD exchanges without any problems. Patient refusing any further hemodialysis. Hemodynamically stable. Vital signs are stable. General: No acute distress. HEENT: On nasal cannula. LUNGS: No audible rhonchi or wheezes. HEART: Rate and Rhythm are regular. ABDOMEN: Nontender. EXTREMITITES: No edema. No drainage noted. Objective - Vital Signs Vital signs: Vital Signs Temp 97.7 F 02/08/24 09:56 Pulse 60 02/08/24 09:56 Resp 20 02/08/24 09:56 BP 92/30 02/08/24 09:56 Pulse Ox 95 02/08/24 09:56 FiO2 Intake & Output 02/07/24 02/08/24 02/08/24 18:59 06:59 18:59 Intake Total 100 360 550 Balance 100 360 550 Weight 66.5 kg 63.911 kg Intake: IV 100 Oral 360 550 Other: Voiding Method Toilet Toilet Toilet Bedside Commode Bedside Commode Bedside Commode # Voids 0 0 - Labs CBC & Chem 7: 02/06/24 10:11 02/07/24 08:08 Labs: Abnormal Lab Results - Last 24 Hours (Table) 02/07/24 02/07/24 02/07/24 Range/Units 11:37 18:11 20:13 POC Glucose (mg/dL) 252 H 321 H 261 H (70-110) mg/dL Microbiology - Last 24 Hours (Table) 02/05/24 12:57 Gram Stain - Preliminary Dialysate Body Fluid Culture - Preliminary 02/05/24 21:15 Blood Culture - Preliminary Blood Assessment and Plan Plan: Assessment: 1. End-stage renal disease maintained on peritoneal dialysis. Also received 1 treatment of hemodialysis this admission via femoral catheter. Patient wishes to continue peritoneal dialysis and is refusing any further hemodialysis treatments. 2. Hypertension with chronic kidney disease. Stable. 3. Chronic kidney disease mineral bone disease maintained on PhosLo. 4. Volume overload. Improved with ultrafiltration. 5. Left lower extremity wound being followed by vascular surgery. Recently had toes amputated as well. 6. Hypokalemia from PD losses and poor intake. Replaced. 7. Coronary artery disease status post CABG. underwent cardiac catheterization this admission which showed severe [place] CAD. 8. Aortic stenosis. Plan: Change PD exchanges to 2.5% dextrose solution. Discontinue hemodialysis catheter. Will be removed this afternoon. Case discussed with vascular surgery. If patient wishes to do hemodialysis in future, patient will need imaging done by vascular surgery and subsequently get a permacath due to torturous vessels. No evidence of peritonitis. Dialysate WBC count 3.
[2024-02-08 11:16] LABS: African American GFR (CKD) 6 (>60 ml/min/1.73 sqM); Anion Gap 12 mmol/L; Blood Urea Nitrogen 56 mg/dL (9-20); Calcium 8.2 mg/dL (8.4-10.2); Carbon Dioxide 24 mmol/L (22-30); Chloride 103 mmol/L (98-107); Glucose 214 mg/dL (74-99); Non-African American GFR(CKD) 6 (>60 ml/min/1.73 sqM); Potassium 3.8 mmol/L (3.5-5.1); Sodium 139 mmol/L (137-145)
[2024-02-08 11:42] LABS: Glucose,Whole Blood 370 mg/dL (70-110)
--- NOTE | 2024-02-08 11:47 | P.DS ---
Providers Date of admission: 02/02/24 14:54 Expected date of discharge: 02/08/24 Attending physician: Jerry Jara Consults: 02/02/24 14:53 Consult Physician Urgent Consulting Provider: Monse Haro Consult Reason/Comments: esrd on pd, volume overload with hypoxia Do you want consulting provider notified?: Already Contacted 02/02/24 15:07 Consult Physician Urgent Consulting Provider: [facility] Consult Reason/Comments: acute volume overload, systolic murmur Do you want consulting provider notified?: Yes 02/03/24 16:31 Consult Physician Routine Consulting Provider: Pavel Odom Consult Reason/Comments: History of right toe amputations Do you want consulting provider notified?: Yes 02/08/24 11:29 Consult Physician Routine Consulting Provider: Joao Hussein Consult Reason/Comments: eval for ipr Do you want consulting provider notified?: Yes Primary care physician: [facility] Course: Discharge canceled, patient and requesting rehab., Case management notified. The impression and plan of care has been dictated as directed. : I performed a history and examination of this patient, discussed the same with the dictator. I agree with the dictator's note ,documented as a scribe. Any additional findings or plans will be noted. Patient Condition at Discharge: Stable Plan - Discharge Summary Discharge Rx Participant: No New Discharge Prescriptions: New Collagenase [Santyl Ointment] 1 applic TOPICAL DAILY each carvediloL [Coreg*] 12.5 mg PO BID-W/MEALS #60 tab HYDROcodone/APAP 7.5-325MG [[place] 7.5-325] 1 each PO Q6HR PRN #12 tab PRN Reason: Pain Pantoprazole [Protonix] 40 mg PO AC-BRKFST #30 tab Continue amLODIPine [Norvasc] 10 mg PO DAILY Acetaminophen Tab [Tylenol] 1,000 mg PO Q6H PRN PRN Reason: Fever And/ Or Pain Acyclovir 5% Oint [Zovirax Oint] 1 applic TOPICAL Q3H PRN MDD 6 times a day PRN Reason: Skin Irritation Calcium Acetate [PhosLo] 1,334 mg PO TID-W/MEALS Calcium Acetate [PhosLo] 667 mg PO BID PRN PRN Reason: w/snacks rOPINIRole HCL [Requip] 0.25 mg PO BID Ondansetron [Zofran] 4 mg PO Q8H PRN PRN Reason: Nausea Lactulose [Cephulac] 30 gm PO BID Aspirin EC [Ecotrin Low Dose] 81 mg PO DAILY Changed Insulin Glargine [Lantus Vial] 24 unit SQ DAILY #0 Discontinued carvediloL [Coreg] 25 mg PO TID PRN PRN Reason: SBP greater than 150 Discharge Medication List Calcium Acetate [PhosLo] 1,334 mg PO TID-W/MEALS 09/02/21 [History] Calcium Acetate [PhosLo] 667 mg PO BID PRN 03/09/22 [History] amLODIPine [Norvasc] 10 mg PO DAILY 07/28/22 [History] Lactulose [Cephulac] 30 gm PO BID 07/23/23 [History] Ondansetron [Zofran] 4 mg PO Q8H PRN 07/23/23 [History] rOPINIRole HCL [Requip] 0.25 mg PO BID 07/23/23 [History] Acetaminophen Tab [Tylenol] 1,000 mg PO Q6H PRN 02/02/24 [History] Acyclovir 5% Oint [Zovirax Oint] 1 applic TOPICAL Q3H PRN MDD 6 times a day 02/02/24 [History] Aspirin EC [Ecotrin Low Dose] 81 mg PO DAILY 02/02/24 [History] HYDROcodone/APAP 7.5-325MG [[place] 7.5-325] 1 each PO Q6HR PRN #12 tab 02/08/24 [Rx] Insulin Glargine [Lantus Vial] 24 unit SQ DAILY #0 02/08/24 [Rx] Pantoprazole [Protonix] 40 mg PO AC-BRKFST #30 tab 02/08/24 [Rx] carvediloL [Coreg*] 12.5 mg PO BID-W/MEALS #60 tab 02/08/24 [Rx] Collagenase [Santyl Ointment] 1 applic TOPICAL DAILY each 02/10/24 [Rx] Follow up Appointment(s)/Referral(s): Jerry Jara Jr, DO [Primary Care Provider] - 1-2 days (please call offcie to make appointment, office closed for lunch) Reinier Macias DO [STAFF PHYSICIAN] - 02/16/24 9:45 am [facility], [NON-STAFF] - Hospice,[facility] [NON-STAFF] - Aman Ocampo DO [STAFF PHYSICIAN] - 1 Week (please call to make appointment, office closed for lunch) [facility] [NON-STAFF] - As Needed (Haylie from [facility] will call you with an appointment time to meet with [facility] team to discuss TAVR) Activity/Diet/Wound Care/Special Instructions: Peritoneal dialysis as per nephrology. Hospice info. given to . Discharge Disposition: HOME WITH HOME HEALTH SERVICES
--- NOTE | 2024-02-08 12:44 | P.PN ---
Subjective Progress Note Date: 02/08/24 CHF The patient is a 78-year-old gentleman with a past medical history significant for CAD status post CABG and also PAD with prior revascularization as well as valvular heart disease as well as cardiomyopathy and also multiple comorbid conditions including end-stage renal disease on peritoneal dialysis was admitted to the hospital with increasing shortness of breath and he was diagnosed with heart failure and felt to be in fluid overload. Beside that his troponin came in to be mildly abnormal. The patient was already scheduled to undergo transesophageal echocardiogram and heart catheterization by Dr. Macias this coming Wednesday. He was seen by the nephrology service and he was switched to und ergo hemodialysis. And attempted to have a hemodialysis catheter from the left IJ was unsuccessful and he is in process of having a dialysis catheter from the femoral vein. February 05, 2024 The patient was seen this morning. He continues to have shortness of breath but he continues to be on oxygen. He is still in fluid overload with right and left failure. Dr. Odom is planning to perform dialysis catheter placement from the right common femoral vein and the patient will undergo hemodialysis after that. Meanwhile continue the current medical regimen. If the patient stays stable over the weekend he will undergo transesophageal echocardiogram and heart catheterization by Dr. Macias on Wednesday. The examination revealed significant systolic murmur at the right upper sternal border with bilateral rhonchi and bilateral lower extremities edema February 06, 2024 The patient was seen and evaluated this morning. He is doing better. The shortness of breath has improved significantly after he underwent hemodialysis yesterday and peritoneal dialysis today. No chest pain. The shortness of breath is better. The examination revealed regular rhythm with significant crescendo-decrescendo murmur and decrease in the intensity of S2 and bilateral expiratory wheezing and mild bilateral lower extremities edema. The plan to pursue with a transesophageal echocardiogram and heart catheterization tomorrow by Dr. Macias. Will keep the patient n.p.o. after midnight today. 02/06 Patient states that he felt better yesterday but not clear why he is not feeling well mostly because he is not able to eat. Patient has refused hemodialysis and will only do peritoneal dialysis. He denies any shortness of breath. He states he feels tired and weak. Blood pressure 137/58, heart rate 70, pulse ox 100% on 2 and half liters nasal cannula. He is scheduled for PARHT and cardiac catheterization with Dr. Macias today. 02/07 Yesterday, patient underwent PARTH and cardiac cath finding severe CAD including 100% LAD, 100% circumflex, 99% RCA. Patent SVG to PDA, SVG to OM1, SVG to diagonal, BALTAZAR to LAD with 1 occluded graft assumed SVG to OM 2. Plan to consider risk factor modification and workup for AVR. Consult in place with the cardiothoracic surgery and have met with the patient. Patient states that he does not want to go through more testing right now. Dr. Macias discussed results and prognosis. Patient would prefer to go home and gain some strength feel more comfortable and will follow-up in the office. He continues to complain of feeling tired and weak. No chest pain. Blood pressure 141/64, heart rate 69, pulse ox 96% on room air. Physical Examination Gen: This is a 78-year-old male sitting in chair and appears to be comfortable. No acute distress. HEENT: Head is atraumatic, normocephalic. Pupils equal, round. Sclerae is anicteric. NECK: Supple. No JVD. No lymphadenopathy. No thyromegaly. LUNGS: Bilateral air entry. No intercostal retractions. HEART: Regular rate and rhythm. Systolic murmur right upper sternal border. ABDOMEN: Soft. Bowel sounds are present. No masses. No tenderness. EXTREMITIES: No lower extremity edema. No calf tenderness. NEUROLOGICAL: Patient is awake, alert and oriented x3. Cranial nerves 2 through 12 are grossly intact. Assessment Coronary artery disease status post CABG Cardiomyopathy Peripheral arterial disease Valvular heart disease with aortic stenosis Heart failure End-stage renal disease on dialysis Plan Continue the current medical regimen Patient is cleared from cardiology for discharge home and may follow-up in the office in 1 to [address] Macias. Nurse practitioner note has been reviewed, I agree with documented findings and plan of care. Patient was seen and examined. Objective - Vital Signs Vital signs: Vital Signs Temp 97.7 F 02/08/24 09:56 Pulse 69 02/08/24 10:31 Resp 18 02/08/24 10:31 BP 141/64 02/08/24 10:31 Pulse Ox 96 02/08/24 10:31 FiO2 Intake & Output 02/07/24 02/08/24 02/08/24 18:59 06:59 18:59 Intake Total 100 360 550 Balance 100 360 550 Weight 66.5 kg 63.911 kg Intake: IV 100 Oral 360 550 Other: Voiding Method Toilet Toilet Toilet Bedside Commode Bedside Commode Bedside Commode # Voids 0 0 - Labs CBC & Chem 7: 02/06/24 10:11 02/08/24 08:44 Labs: Abnormal Lab Results - Last 24 Hours (Table) 02/07/24 02/07/24 02/07/24 Range/Units 11:37 18:11 20:13 POC Glucose (mg/dL) 252 H 321 H 261 H (70-110) mg/dL Microbiology - Last 24 Hours (Table) 02/05/24 12:57 Gram Stain - Preliminary Dialysate Body Fluid Culture - Preliminary 02/05/24 21:15 Blood Culture - Preliminary Blood
[2024-02-08] MEDS ORDERED: DIALYSIS (PERITONEAL) DEX 2.5% 2,500 ML BAG INTRAPERIT SCH (16:00)
[2024-02-08] MEDS: DIALYSIS (PERITONL) DEX 2.5% 2,000 ML INTRAPERIT SCH (16:19)
[2024-02-08 16:45] LABS: Glucose,Whole Blood 73 mg/dL (70-110)
[2024-02-08] MEDS ORDERED: ONDANSETRON 4 MG/2 ML VIAL IVP PRN (18:27)
[2024-02-08] MEDS: ONDANSETRON 4 MG/2 ML VIAL IVP PRN (18:40)
[2024-02-08 20:49] LABS: Glucose,Whole Blood 134 mg/dL (70-110)
[2024-02-09 02:13] LABS: Glucose,Whole Blood 294 mg/dL (70-110)
[2024-02-09 05:54] LABS: Glucose,Whole Blood 268 mg/dL (70-110)
[2024-02-09] MEDS: ACETAMINOPHEN TAB 500 MG TAB PO PRN (11:04)
--- NOTE | 2024-02-09 11:07 | P.PN ---
Subjective Patient is seen in follow-up for end-stage renal disease. Currently doing PD exchanges without any problems. Patient refusing any further hemodialysis. Hemodynamically stable. Vital signs are stable. General: No acute distress. HEENT: On nasal cannula. LUNGS: No audible rhonchi or wheezes. HEART: Rate and Rhythm are regular. ABDOMEN: Nontender. EXTREMITITES: No edema. No drainage noted. Objective - Vital Signs Vital signs: Vital Signs Temp 97.7 F 02/09/24 09:33 Pulse 74 02/09/24 10:57 Resp 18 02/09/24 10:57 BP 125/68 02/09/24 10:57 Pulse Ox 95 02/09/24 10:57 FiO2 Intake & Output 02/08/24 02/09/24 02/09/24 18:59 06:59 18:59 Intake Total 890 340 Output Total 75 Balance 815 340 Intake: Oral 890 340 Output: Urine 75 Other: Voiding Method Toilet Toilet Toilet Bedside Commode Bedside Commode Bedside Commode # Voids 1 # Bowel Movements 1 - Labs CBC & Chem 7: 02/06/24 10:11 02/08/24 08:44 Labs: Abnormal Lab Results - Last 24 Hours (Table) 02/08/24 02/08/24 02/08/24 Range/Units 08:44 11:40 20:46 BUN 56 H (9-20) mg/dL Creatinine 8.30 H* (0.66-1.25) mg/dL Glucose 214 H (74-99) mg/dL POC Glucose (mg/dL) 370 H 134 H (70-110) mg/dL Calcium 8.2 L (8.4-10.2) mg/dL 02/09/24 02/09/24 Range/Units 02:12 05:41 BUN (9-20) mg/dL Creatinine (0.66-1.25) mg/dL Glucose (74-99) mg/dL POC Glucose (mg/dL) 294 H 268 H (70-110) mg/dL Calcium (8.4-10.2) mg/dL Microbiology - Last 24 Hours (Table) 02/05/24 12:57 Gram Stain - Preliminary Dialysate Body Fluid Culture - Preliminary 02/05/24 21:15 Blood Culture - Preliminary Blood Assessment and Plan Plan: Assessment: 1. End-stage renal disease maintained on peritoneal dialysis. Also received 1 treatment of hemodialysis this admission via femoral catheter. Patient wishes to continue peritoneal dialysis and is refusing any further hemodialysis treatments. 2. Hypertension with chronic kidney disease. Stable. 3. Chronic kidney disease mineral bone disease maintained on PhosLo. 4. Volume overload. Improved with ultrafiltration. 5. Left lower extremity wound being followed by vascular surgery. Recently had toes amputated as well. 6. Hypokalemia from PD losses and poor intake. Replaced. Better. 7. Coronary artery disease status post CABG. underwent cardiac catheterization this admission which showed severe unga CAD. 8. Aortic stenosis. Plan: Change PD exchanges to alternate with 1.5% and 2.5% dextrose solution. Discontinue hemodialysis catheter. Will be removed this afternoon. Case discussed with vascular surgery and also with patient and his . No evidence of peritonitis. Dialysate WBC count 3. If patient goes to subacute rehab, he will need a tunneled hemodialysis catheter placed.
[2024-02-09 11:35] LABS: Glucose,Whole Blood 210 mg/dL (70-110)
--- NOTE | 2024-02-09 12:17 | P.CONS ---
History of Present Illness - Reason for Consult Consult date: 02/09/24 Rehab Needs - Chief Complaint SOB, weakness - History of Present Illness PMR Consult Mr. Renner is known to the rehab team from a previous stay on [facility]. He is a pleasant, left handed, gentleman who lives with his in a 1 story home with a ramp to enter. He ambulated with a walker, but is WB to heel only on right foot secondary to wound issues after 3 small toes on right removed. He needed help for ADLS. His children live in other half of the home He has past medical history significant ESRD/peritoneal dialysis, CAD status post CABG, PAD with prior revascularization, valvular heart disease, and cardiomyopathy, was admitted to the hospital with increasing shortness of breath and he was diagnosed with heart failure and felt to be in fluid overload. Beside that his troponin came in to be mildly abnormal. The patient was already scheduled to undergo transesophageal echocardiogram and heart catheterization by Dr. Macias. He was seen by the nephrology service and he was switched to undergo hemodialysis. Attempted to have a hemodialysis catheter from the left IJ was unsuccessful and he is in process of having a dialysis catheter from the femoral vein. February 05, 2024 The patient was seen this morning. He continues to have shortness of breath but he continues to be on oxygen. He is still in fluid overload with right and left failure. Dr. Odom is planning to perform dialysis catheter placement from the right common femoral vein and the patient will undergo hemodialysis after that. Meanwhile continue the current medical regimen. If the patient stays stable over the weekend he will undergo transesophageal echocardiogram and heart catheterization by Dr. Macias on Wednesday. The examination revealed significant systolic murmur at the right upper sternal border with bilateral rhonchi and bilateral lower extremities edema February 06, 2024 The patient was seen and evaluated this morning. He is doing better. The shortness of breath has improved significantly after he underwent hemodialysis yesterday and peritoneal dialysis today. No chest pain. The shortness of breath is better. The examination revealed regular rhythm with significant crescendo-decrescendo murmur and decrease in the intensity of S2 and bilateral expiratory wheezing and mild bilateral lower extremities edema. The plan to pursue with a transesophageal echocardiogram and heart catheterization tomorrow by Dr. Macias. Will keep the patient n.p.o. after midnight today. 02/06 Patient states that he felt better yesterday but not clear why he is not feeling well mostly because he is not able to eat. Patient has refused hemodialysis and will only do peritoneal dialysis. He denies any shortness of breath. He states he feels tired and weak. Blood pressure 137/58, heart rate 70, pulse ox 100% on 2 and half liters nasal cannula. He is scheduled for PARTH and cardiac catheterization with Dr. Macias today. 02/07 Yesterday, patient underwent PARTH and cardiac cath finding severe CAD including 100% LAD, 100% circumflex, 99% RCA. Patent SVG to PDA, SVG to OM1, SVG to diagonal, BALTAZAR to LAD with 1 occluded graft assumed SVG to OM 2. Plan to consider risk factor modification and workup for AVR. Consult in place with the cardiothoracic surgery and have met with the patient. Patient states that he does not want to go through more testing right now. Dr. Macias discussed results and prognosis. Patient would prefer to go home and gain some strength feel more comfortable and will follow-up in the office. He continues to complain of feeling tired and weak. No chest pain. Blood pressure 141/64, heart rate 69, pulse ox 96% on room air. 02/09/24: PMR was consulted for rehab needs. He is sitting on side of bed, visiting with his . Notes he is tired, has occasional dizziness when up, and had nausea yesterday but has resolved. Having pain at times in right foot, WB to heel. Has numbness in hands and feet, but was still able to do peritoneal dialysis. Notes his SOB is better. Last BM this am. Therapy notes are pending, notes they did get him up with a walker. Review of Systems + per above, o/w all systems reviewed negative. Past Medical History Past Medical History: Coronary Artery Disease (CAD), Diabetes Mellitus, Dialysis, Hypertension, Renal Disease Additional Past Medical History / Comment(s): PERITONEAL DIALYSIS - -4 TIMES DAILY , POOR CIRCULATION IN LOWER LEGS History of Any Multi-Drug Resistant Organisms: None Reported Year Discovered:: 09/03/21 MDRO Source:: ESBL PERITONEAL FLUID Past Surgical History: Coronary Bypass/CABG, Heart Catheterization, Joint Replacement Additional Past Surgical History / Comment(s): 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, LEFT TOTAL HIP, BILATERAL CATARACT SURGERY WITH LENS IMPLANT Past Anesthesia/Blood Transfusion Reactions: No Reported Reaction Past Psychological History: No Psychological Hx Reported Smoking Status: Never smoker Past Alcohol Use History: None Reported Past Drug Use History: None Reported - Past Family History Mother Family Medical History: Cancer Additional Family Medical History / Comment(s): Heart disease Father History Unknown: Yes Medications and Allergies Home Medications Medication Instructions Recorded Confirmed Type Calcium Acetate [PhosLo] 1,334 mg PO TID-W/MEALS 09/02/21 02/02/24 History Calcium Acetate [PhosLo] 667 mg PO BID PRN 03/09/22 02/02/24 History amLODIPine [Norvasc] 10 mg PO DAILY 07/28/22 02/02/24 History carvediloL [Coreg] 25 mg PO TID PRN 07/28/22 02/02/24 History Lactulose [Cephulac] 30 gm PO BID 07/23/23 02/02/24 History Ondansetron [Zofran] 4 mg PO Q8H PRN 07/23/23 02/02/24 History rOPINIRole HCL [Requip] 0.25 mg PO BID 07/23/23 02/02/24 History Acetaminophen Tab [Tylenol] 1,000 mg PO Q6H PRN 02/02/24 02/02/24 History Acyclovir 5% Oint [Zovirax Oint] 1 applic TOPICAL Q3H PRN MDD 6 02/02/24 02/02/24 History times a day Aspirin EC [Ecotrin Low Dose] 81 mg PO DAILY 02/02/24 02/02/24 History HYDROcodone/APAP 7.5-325MG [Loving 1 each PO Q6HR PRN #12 tab 02/08/24 Rx 7.5-325] Insulin Glargine [Lantus Vial] 24 unit SQ DAILY #0 02/08/24 02/02/24 Rx Pantoprazole [Protonix] 40 mg PO AC-BRKFST #30 tab 02/08/24 Rx carvediloL [Coreg*] 12.5 mg PO BID-W/MEALS #60 tab 02/08/24 Rx Allergies Allergy/AdvReac Type Severity Reaction Status Date / Time citric acid Allergy Rash/Hives Verified 07/23/23 15:17 with high doses latex Allergy Swelling, Verified 07/23/23 15:17 SKIN TURNED RED,BURNING, ITCHING losartan Allergy Cough Verified 07/23/23 15:17 hydrocodone [From Loving] AdvReac Hallucinati Verified 07/23/23 15:17 ons Physical Exam Vitals: Vital Signs Temp Pulse Pulse Resp BP BP Pulse Ox 02/09/24 10:57 74 18 125/68 95 02/09/24 09:58 71 18 124/68 95 02/09/24 09:33 97.7 F 74 20 107/61 92 L 02/09/24 09:25 18 02/09/24 09:24 97.7 F 74 18 107/61 92 L 02/09/24 08:06 97 02/09/24 05:03 98.1 F 74 18 166/77 96 02/09/24 04:00 98.1 F 74 18 96 02/09/24 02:00 68 18 02/09/24 00:00 68 18 118/62 95 02/08/24 22:00 97.7 F 77 18 127/60 92 L 02/08/24 20:00 98.2 F 75 19 106/55 92 L 02/08/24 16:17 97.9 F 70 77 20 118/72 118/72 97 Intake and Output 02/08/24 02/09/24 02/09/24 22:59 06:59 14:59 Intake Total 222 340 Balance 222 340 Intake: Oral 222 340 Other: Voiding Method Toilet Toilet Toilet Bedside Commode Bedside Commode Bedside Commode # Bowel Movements 1 1 Gen: NAD, alert, pleasant HEENT: neck supple, PERRLA, EOMI Lungs: Non-labored respirations CV: Regular rate Abd: Soft nt/nd, + catheter Neuro: A&O X4 CN 2-12 intact MMT 4/5 bilateral UE/LE DTR 1+ UE/LE, patellar not tested Sensation light touch decreased in stocking distribution bilaterally Wearing walking shoe on right. EXT: No significant LE edema, no calf TTP Results CBC & Chem 7: 02/06/24 10:11 02/08/24 08:44 Labs: Abnormal Lab Results - Last 24 Hours (Table) 02/08/24 02/09/24 02/09/24 Range/Units 20:46 02:12 05:41 POC Glucose (mg/dL) 134 H 294 H 268 H (70-110) mg/dL 02/09/24 Range/Units 11:34 POC Glucose (mg/dL) 210 H (70-110) mg/dL Microbiology - Last 24 Hours (Table) 02/05/24 12:57 Gram Stain - Preliminary Dialysate Body Fluid Culture - Preliminary 02/05/24 21:15 Blood Culture - Preliminary Blood Assessment and Plan Assessment: # Gait impairment/decline in function - therapies pending - in past, during IPR, was limited with difficulty doing 3hr/day of therapies #End-stage renal disease maintained on peritoneal dialysis. -Also received 1 treatment of hemodialysis this admission via femoral catheter. Patient wishes to continue peritoneal dialysis and is refusing any further hemodialysis treatments. # Hypertension with chronic kidney disease. # Right lower extremity wound being followed by vascular surgery. Recently had right toes amputated as well. # PAD # Coronary artery disease status post CABG # Cardiomyopathy # Valvular heart disease with aortic stenosis Recommendations: - per your medical management - continue PT/OT - worked with him this am, but notes are pending. At this time, he appears more appropriate for DEEPTHI, as based upon previous function and current medical condition, he does not appear to be able to tolerate 3h/day of IPR (in past had difficulty despite being co-treated by PT/OT). However, will reassess after see how he does with therapies.
--- NOTE | 2024-02-09 12:31 | XR ---
EXAMINATION TYPE: XR chest 1V DATE OF EXAM: 02/07/2024 12:44 PM CLINICAL INDICATION:Male, 78 years old with history of fluid overload; PHH COMPARISON: Chest radiographs from 02/02/2024 TECHNIQUE: XR chest 1V Frontal view of the chest. FINDINGS: Lungs/Pleura: There is no evidence of pleural effusion, focal consolidation, or pneumothorax. Pulmonary vascularity: Unremarkable. Heart/mediastinum: Cardiomediastinal silhouette is unremarkable. Sternotomy wires and mediastinal va scular clips and bypass surgery. Musculoskeletal: No acute osseous pathology. Other findings: None Lines/Tubes: None. IMPRESSION: No radiographic evidence of an acute cardiopulmonary process.
--- NOTE | 2024-02-09 14:23 | P.PN ---
Subjective Progress Note Date: 02/09/24 CHF The patient is a 78-year-old gentleman with a past medical history significant for CAD status post CABG and also PAD with prior revascularization as well as valvular heart disease as well as cardiomyopathy and also multiple comorbid conditions including end-stage renal disease on peritoneal dialysis was admitted to the hospital with increasing shortness of breath and he was diagnosed with heart failure and felt to be in fluid overload. Beside that his troponin came in to be mildly abnormal. The patient was already scheduled to undergo transesophageal echocardiogram and heart catheterization by Dr. Macias this coming Wednesday. He was seen by the nephrology service and he was switched to und ergo hemodialysis. And attempted to have a hemodialysis catheter from the left IJ was unsuccessful and he is in process of having a dialysis catheter from the femoral vein. February 05, 2024 The patient was seen this morning. He continues to have shortness of breath but he continues to be on oxygen. He is still in fluid overload with right and left failure. Dr. Odom is planning to perform dialysis catheter placement from the right common femoral vein and the patient will undergo hemodialysis after that. Meanwhile continue the current medical regimen. If the patient stays stable over the weekend he will undergo transesophageal echocardiogram and heart catheterization by Dr. Macias on Wednesday. The examination revealed significant systolic murmur at the right upper sternal border with bilateral rhonchi and bilateral lower extremities edema February 06, 2024 The patient was seen and evaluated this morning. He is doing better. The shortness of breath has improved significantly after he underwent hemodialysis yesterday and peritoneal dialysis today. No chest pain. The shortness of breath is better. The examination revealed regular rhythm with significant crescendo-decrescendo murmur and decrease in the intensity of S2 and bilateral expiratory wheezing and mild bilateral lower extremities edema. The plan to pursue with a transesophageal echocardiogram and heart catheterization tomorrow by Dr. Macias. Will keep the patient n.p.o. after midnight today. 02/06 Patient states that he felt better yesterday but not clear why he is not feeling well mostly because he is not able to eat. Patient has refused hemodialysis and will only do peritoneal dialysis. He denies any shortness of breath. He states he feels tired and weak. Blood pressure 137/58, heart rate 70, pulse ox 100% on 2 and half liters nasal cannula. He is scheduled for PARTH and cardiac catheterization with Dr. Macias today. 02/07 Yesterday, patient underwent PARTH and cardiac cath finding severe CAD including 100% LAD, 100% circumflex, 99% RCA. Patent SVG to PDA, SVG to OM1, SVG to diagonal, BALTAZAR to LAD with 1 occluded graft assumed SVG to OM 2. Plan to consider risk factor modification and workup for AVR. Consult in place with the cardiothoracic surgery and have met with the patient. Patient states that he does not want to go through more testing right now. Dr. Macias discussed results and prognosis. Patient would prefer to go home and gain some strength feel more comfortable and will follow-up in the office. He continues to complain of feeling tired and weak. No chest pain. Blood pressure 141/64, heart rate 69, pulse ox 96% on room air. 02/08 Patient is seen today in follow-up. He states he is feeling little better today. He is complaining of foot pain. Blood pressure 125/68, heart rate 74, pulse ox 95% on room air. Patient is waiting to be excepted for inpatient rehab Physical Examination Gen: This is a 78-year-old male sitting in chair and appears to be comfortable. No acute distress. HEENT: Head is atraumatic, normocephalic. Pupils equal, round. Sclerae is an icteric. NECK: Supple. No JVD. No lymphadenopathy. No thyromegaly. LUNGS: Bilateral air entry. No intercostal retractions. HEART: Regular rate and rhythm. Systolic murmur right upper sternal border. ABDOMEN: Soft. Bowel sounds are present. No masses. No tenderness. EXTREMITIES: No lower extremity edema. No calf tenderness. NEUROLOGICAL: Patient is awake, alert and oriented x3. Cranial nerves 2 through 12 are grossly intact. Assessment Coronary artery disease status post CABG Cardiomyopathy Peripheral arterial disease Valvular heart disease with aortic stenosis Heart failure End-stage renal disease on dialysis Plan Continue the current medical regimen Patient is cleared from cardiology for discharge home and may follow-up in the office in [address] Macias. Cardiology will sign off this case and follow on an as-needed basis. Please reconsult for any new concerns. Nurse practitioner note has been reviewed, I agree with documented findings and plan of care. Patient was seen and examined. Objective - Vital Signs Vital signs: Vital Signs Temp 97.7 F 04/24/24 09:33 Pulse 74 02/09/24 10:57 Resp 18 02/09/24 10:57 BP 125/68 02/09/24 10:57 Pulse Ox 95 02/09/24 10:57 FiO2 Intake & Output 02/08/24 02/09/24 02/09/24 18:59 06:59 18:59 Intake Total 890 340 Output Total 75 Balance 815 340 Intake: Oral 890 340 Output: Urine 75 Other: Voiding Method Toilet Toilet Toilet Bedside Commode Bedside Commode Bedside Commode # Voids 1 # Bowel Movements 1 - Labs CBC & Chem 7: 02/06/24 10:11 02/08/24 08:44 Labs: Abnormal Lab Results - Last 24 Hours (Table) 02/08/24 02/09/24 02/09/24 Range/Units 20:46 02:12 05:41 POC Glucose (mg/dL) 134 H 294 H 268 H (70-110) mg/dL 02/09/24 Range/Units 11:34 POC Glucose (mg/dL) 210 H (70-110) mg/dL Microbiology - Last 24 Hours (Table) 02/05/24 12:57 Gram Stain - Preliminary Dialysate Body Fluid Culture - Preliminary 02/05/24 21:15 Blood Culture - Preliminary Blood
[2024-02-09 15:52] LABS: Glucose,Whole Blood 93 mg/dL (70-110)
--- NOTE | 2024-02-09 15:54 | P.PN ---
Subjective Progress Note Date: 02/09/24 H&P Date: 02/03/24 Chief Complaint: Progressive dyspnea This is a 78-year-old gentleman with past medical history significant for end- stage renal disease on peritoneal dialysis, CAD, PAD, diabetes mellitus and multiple other medical issues, presented to the ER with complaints of progressive shortness of breath over the last month, orthopnea and weight gain of 10 pounds. Reports he has been compliant with his peritoneal dialysis exchanges and has not missed any. EKG reported sinus rhyth with nonspecific ST and T wave abnormality. Chest x-ray reporting CHF with interstitial pulmonary edema, small bilateral pleural effusions with adjacent atelectasis and/or consolidation. Viral studies negative. Denies chills, fevers, nausea or vomiting. Afebrile, WBC 8.3, hemoglobin 10.8, platelets 250, electrolytes within normal limits, bicarb 25, BUN 102, creatinine 9.76. Blood sugars uncontrolled in the 300s. 02/04/2024 continues on PD as per nephrology, volume status improving. Maintaining O2 sats in the high 90s on 2 L nasal cannula, which can be further titrated. Hypertensive, Coreg initiated, blood pressures improving. Denies lightheadedness, dizziness or focal deficits. Denies headache. Sitting up at bedside, on the phone with his significant other. Denies chest pain, palpitations or shortness of breath. Echo completed, results pending. Reports he slept very well, 8 solid hours-which he states is very unusual for him. 02/07/2024 NPO, scheduled for PARTH and heart catheterization today. Potassium 3.4, replacement ordered .declining further hemodialysis. Potassium 3.4, replacement ordered. Afebrile. Denies chest pain, palpitations or increased shortness of breath. Maintaining O2 sats in the high 90s on 2.5 L nasal cannula . 02/08/2024 status post PARTH and cardiac catheterization reporting severe CAD including 100% LAD, 100% circumflex, 99% RCA. Patent SVG to PDA, SVG to OM1, SVG to diagonal, BALTAZAR to LAD with 1 occluded graft assumed SVG to OM 2. Plan to consider risk factor modification and workup for AVR. Patient declined further testing with cardiology at this time. Requesting to go home, get stronger and will follow-up outpatient. Vital signs stable. 02/09/24 attempting to discharge patient yesterday, but requested patient be evaluated for rehab. Patient is currently peritoneal dialysis, declined to proceed with hemodialysis. Consult placed for inpatient rehab evaluation. Patient appears stronger today, getting up with walker, tolerated exertion well. Vital signs stable. Denies chest pain, palpitations or shortness of breath. Objective - Vital Signs Vital signs: Vital Signs Temp 97.7 F 02/09/24 09:33 Pulse 74 02/09/24 10:57 Resp 18 02/09/24 14:13 BP 125/68 02/09/24 10:57 Pulse Ox 95 02/09/24 10:57 FiO2 Intake & Output 02/08/24 02/09/24 02/09/24 18:59 06:59 18:59 Intake Total 890 340 Output Total 75 Balance 815 340 Intake: Oral 890 340 Output: Urine 75 Other: Voiding Method Toilet Toilet Toilet Bedside Commode Bedside Commode Bedside Commode # Voids 1 # Bowel Movements 1 - Exam - Exam GENERAL: Alert and oriented 3, Sitting up in chair, no acute distress. HEENT: Normocephalic, FERNANDO,sclera anicteric, conjunctiva normal.MMM. NECK: Supple, no JVD. LUNGS: Unlabored, equal air entry, bilateral breath sounds clear, diminished bases. HEART: Regular rate and rhythm without , systolic ejection murmur ABDOMEN: Soft, nontender, normoactive bowel sounds. No guarding, no rebound. No masses appreciated. Peritoneal dialysis catheter present without irritation. EXTREMITIES:No lower extremity edema, no clubbing or cyanosis. NEUROLOGICAL: Cranial nerves II through XII grossly intact. No focal deficits. SKIN: Warm, Dry, no rashes noted. - Labs CBC & Chem 7: 02/06/24 10:11 02/08/24 08:44 Labs: Abnormal Lab Results - Last 24 Hours (Table) 02/08/24 02/09/24 02/09/24 Range/Units 20:46 02:12 05:41 POC Glucose (mg/dL) 134 H 294 H 268 H (70-110) mg/dL 02/09/24 Range/Units 11:34 POC Glucose (mg/dL) 210 H (70-110) mg/dL Microbiology - Last 24 Hours (Table) 02/05/24 21:15 Blood Culture - Preliminary Blood 02/05/24 12:57 Gram Stain - Preliminary Dialysate Body Fluid Culture - Preliminary Assessment and Plan Assessment: End-stage renal dialysis on peritoneal dialysis, with fluid volume overload. Patient has discussed with nephrology about switching over to hemodialysis this admission. Fluid volume overload secondary to the above Elevated troponin, related to the above, cardiology following Moderate to severe aortic stenosis CAD, history of CABG Hyperlipidemia Diabetes mellitus History of ESBL in peritoneal fluid COVID-19 infection 2020 PAD, history of popliteal bypass, history of right second toe amputation Osteoarthritis Anemia of chronic disease Restless leg syndrome Prior nicotine dependence Hypokalemia Plan: Continue on current medication regimen ,monitoring and symptomatic treatm ent. NPO.PARTH and cardiac cath scheduled for today. Patient declining further hemodialysis;hemodialysis catheter to be discontinued. Discharge planning in progress. IPR at bedside currently evaluating. If patient fails to qualify for IPR , then Dr. Odom to be contacted regarding patient will need a tunnel catheter for hemodialysis if able to be placed, for subacute rehab., otherwise patient will be discharged home on peritoneal dialysis. prognosis guarded given multiple complex medical issues. The impression and plan of care has been dictated as directed. : I performed a history and examination of this patient, discussed the same with the dictator. I agree with the dictator's note ,documented as a scribe. Any additional findings or plans will be noted.
[2024-02-09 16:24] LABS: Glucose,Whole Blood 84 mg/dL (70-110)
[2024-02-09 16:45] LABS: Glucose,Whole Blood 75 mg/dL (70-110)
[2024-02-09] MEDS: HYDROmorphone 0.5 MG/0.5 ML SYRINGE IVP STA (16:47)
[2024-02-09 17:37] LABS: Glucose,Whole Blood 69 mg/dL (70-110)
[2024-02-09 18:01] LABS: Glucose,Whole Blood 75 mg/dL (70-110)
[2024-02-09] MEDS: DIALYSIS (PERIT 1.5%) 2,000 ML 30 G/2,000 ML BAG INTRAPERIT SCH (18:01)
[2024-02-09 19:15] LABS: Glucose,Whole Blood 112 mg/dL (70-110)
--- NOTE | 2024-02-09 20:42 | PCN ---
Date of service: 02/09/2024 PROCEDURE NOTE PROCEDURE: Removal of dialysis catheter, left femoral approach. DESCRIPTION OF PROCEDURE: The patient was seen in the room, left groin was prepped and drapes applied in a sterile manner stitches was removed dialysis catheter was removed. Pressure dressing applied. Patient tolerated the procedure well. NICOLE / RICHARDN: [id number] / MTDD
[2024-02-09] MEDS: DIALYSIS (PERIT 2.5%) 2,000 ML 50 G/2,000 ML BAG INTRAPERIT SCH (22:08)
[2024-02-10 06:06] LABS: Glucose,Whole Blood 146 mg/dL (70-110)
--- NOTE | 2024-02-10 10:26 | P.PN ---
Subjective Patient is seen in follow-up for end-stage renal disease. Currently doing PD exchanges without any problems. Patient refusing any further hemodialysis. Femoral dialysis catheter removed. Hemodynamically stable. Vital signs are stable. General: No acute distress. HEENT: On nasal cannula. LUNGS: No audible rhonchi or wheezes. HEART: Rate and Rhythm are regular. ABDOMEN: Nontender. EXTREMITITES: No edema. No drainage noted. Objective - Vital Signs Vital signs: Vital Signs Temp 97.1 F L 02/10/24 07:42 Pulse 76 02/10/24 08:11 Resp 18 02/10/24 08:11 BP 143/63 02/10/24 07:42 Pulse Ox 96 02/10/24 07:42 FiO2 Intake & Output 02/09/24 02/10/24 02/10/24 18:59 06:59 18:59 Intake Total 340 Balance 340 Intake: Oral 340 Other: Voiding Method Toilet Toilet Toilet Bedside Commode Bedside Commode Bedside Commode # Voids 0 - Labs CBC & Chem 7: 02/06/24 10:11 02/08/24 08:44 Labs: Abnormal Lab Results - Last 24 Hours (Table) 02/09/24 02/09/24 02/09/24 Range/Units 11:34 17:35 19:12 POC Glucose (mg/dL) 210 H 69 L 112 H (70-110) mg/dL 02/10/24 Range/Units 05:58 POC Glucose (mg/dL) 146 H (70-110) mg/dL Microbiology - Last 24 Hours (Table) 02/05/24 12:57 Gram Stain - Final Dialysate Body Fluid Culture - Final 02/05/24 21:15 Blood Culture - Preliminary Blood Assessment and Plan Plan: Assessment: 1. End-stage renal disease maintained on peritoneal dialysis. Also received 1 treatment of hemodialysis this admission via femoral catheter. Patient wishes to continue peritoneal dialysis and is refusing any further hemodialysis treatments. 2. Hypertension with chronic kidney disease. Stable. 3. Chronic kidney disease mineral bone disease maintained on PhosLo. 4. Volume overload. Improved with ultrafiltration. 5. Left lower extremity wound being followed by vascular surgery. Recently had toes amputated as well. 6. Hypokalemia from PD losses and poor intake. Replaced. Better. 7. Coronary artery disease status post CABG. underwent cardiac catheterization this admission which showed severe [place] CAD. 8. Aortic stenosis. Plan: Maintain PD exchanges alternating with 1.5% and 2.5% dextrose solution. No evidence of peritonitis. Dialysate WBC count 3. If patient goes to subacute rehab, he will need a tunneled hemodialysis catheter placed.
[2024-02-10 10:30] LABS: African American GFR (CKD) 6 (>60 ml/min/1.73 sqM); Anion Gap 13 mmol/L; Blood Urea Nitrogen 53 mg/dL (9-20); Calcium 8.1 mg/dL (8.4-10.2); Carbon Dioxide 25 mmol/L (22-30); Chloride 96 mmol/L (98-107); Glucose 132 mg/dL (74-99); Magnesium 1.8 mg/dL (1.6-2.3); Non-African American GFR(CKD) 5 (>60 ml/min/1.73 sqM); Sodium 134 mmol/L (137-145)
--- NOTE | 2024-02-10 11:30 | P.PN ---
Subjective Progress Note Date: 02/10/24 PMR Consult Mr. Renner is known to the rehab team from a previous stay on [facility]. He is a pleasant, left handed, gentleman who lives with his in a 1 story home with a ramp to enter. He ambulated with a walker, but is WB to heel only on right foot secondary to wound issues after 3 small toes on right removed. He needed help for ADLS. His children live in other half of the home He has past medical history significant ESRD/peritoneal dialysis, CAD status post CABG, PAD with prior revascularization, valvular heart disease, and cardiomyopathy, was admitted to the hospital with increasing shortness of breath and he was diagnosed with heart failure and felt to be in fluid overload. Beside that his troponin came in to be mildly abnormal. The patient was already scheduled to undergo transesophageal echocardiogram and heart catheterization by Dr. Macias. He was seen by the nephrology service and he was switched to undergo hemodialysis. Attempted to have a hemodialysis catheter from the left IJ was unsuccessful and he is in process of having a dialysis catheter from the femoral vein. February 05, 2024 The patient was seen this morning. He continues to have shortness of breath but he continues to be on oxygen. He is still in fluid overload with right and left failure. Dr. Odom is planning to perform dialysis catheter placement from the right common femoral vein and the patient will undergo hemodialysis after that. Meanwhile continue the current medical regimen. If the patient stays stable over the weekend he will undergo transesophageal echocardiogram and heart catheterization by Dr. Macias on Wednesday. The examination revealed significant systolic murmur at the right upper sternal border with bilateral rhonchi and bilateral lower extremities edema February 06, 2024 The patient was seen and evaluated this morning. He is doing better. The shortness of breath has improved significantly after he underwent hemodialysis yesterday and peritoneal dialysis today. No chest pain. The shortness of breath is better. The examination revealed regular rhythm with significant crescendo-decrescendo murmur and decrease in the intensity of S2 and bilateral e xpiratory wheezing and mild bilateral lower extremities edema. The plan to pursue with a transesophageal echocardiogram and heart catheterization tomorrow by Dr. Macias. Will keep the patient n.p.o. after midnight today. 02/06 Patient states that he felt better yesterday but not clear why he is not feeling well mostly because he is not able to eat. Patient has refused hemodialysis and will only do peritoneal dialysis. He denies any shortness of breath. He states he feels tired and weak. Blood pressure 137/58, heart rate 70, pulse ox 100% on 2 and half liters nasal cannula. He is scheduled for PARTH and cardiac catheterization with Dr. Macias today. 02/07 Yesterday, patient underwent PARTH and cardiac cath finding severe CAD including 100% LAD, 100% circumflex, 99% RCA. Patent SVG to PDA, SVG to OM1, SVG to diagonal, BALTAZAR to LAD with 1 occluded graft assumed SVG to OM 2. Plan to consider risk factor modification and workup for AVR. Consult in place with the cardiothoracic surgery and have met with the patient. Patient states that he does not want to go through more testing right now. Dr. Macias discussed results and prognosis. Patient would prefer to go home and gain some strength feel more comfortable and will follow-up in the office. He continues to complain of feeling tired and weak. No chest pain. Blood pressure 141/64, heart rate 69, pulse ox 96% on room air. 02/09/24: PMR was consulted for rehab needs. He is sitting on side of bed, visiting with his . Notes he is tired, has occasional dizziness when up, and had nausea yesterday but has resolved. Having pain at times in right foot, WB to heel. Has numbness in hands and feet, but was still able to do peritoneal dialysis. Notes his SOB is better. Last BM this am. 02/10/24: PMR doing therapy and medical chart review on patient since therapy evals were not in yesterday. He is requiring min A for toileting and bathing, LB dressing is min-mod A, Bed mobility supervision. He is below baseline function. Objective - Vital Signs Vital signs: Vital Signs Temp 98.7 F 02/10/24 10:00 Pulse 71 02/10/24 10:00 Resp 16 02/10/24 10:00 BP 91/48 02/10/24 10:00 Pulse Ox 95 02/10/24 10:00 FiO2 Intake & Output 02/09/24 02/10/24 02/10/24 18:59 06:59 18:59 Intake Total 340 Balance 340 Intake: Oral 340 Other: Voiding Method Toilet Toilet Toilet Bedside Commode Bedside Commode Bedside Commode # Voids 0 - Exam No exam was done due to it being chart review - Labs CBC & Chem 7: 02/06/24 10:11 02/10/24 09:27 Labs: Abnormal Lab Results - Last 24 Hours (Table) 02/09/24 02/09/24 02/09/24 Range/Units 11:34 17:35 19:12 Sodium (137-145) mmol/L Chloride (98-107) mmol/L BUN (9-20) mg/dL Creatinine (0.66-1.25) mg/dL Glucose (74-99) mg/dL POC Glucose (mg/dL) 210 H 69 L 112 H (70-110) mg/dL Calcium (8.4-10.2) mg/dL 02/10/24 02/10/24 Range/Units 05:58 09:27 Sodium 134 L (137-145) mmol/L Chloride 96 L (98-107) mmol/L BUN 53 H (9-20) mg/dL Creatinine 8.56 H* (0.66-1.25) mg/dL Glucose 132 H (74-99) mg/dL POC Glucose (mg/dL) 146 H (70-110) mg/dL Calcium 8.1 L (8.4-10.2) mg/dL Microbiology - Last 24 Hours (Table) 02/05/24 12:57 Gram Stain - Final Dialysate Body Fluid Culture - Final 02/05/24 21:15 Blood Culture - Preliminary Blood Assessment and Plan Assessment: # Gait impairment/decline in function - therapies pending - in past, during IPR, was limited with difficulty doing 3hr/day of therapies #End-stage renal disease maintained on peritoneal dialysis. -Also received 1 treatment of hemodialysis this admission via femoral catheter. Patient wishes to continue peritoneal dialysis and is refusing any further hemodialysis treatments. # Hypertension with chronic kidney disease. # Right lower extremity wound being followed by vascular surgery. Recently had right toes amputated as well. # PAD # Coronary artery disease status post CABG # Cardiomyopathy # Valvular heart disease with aortic stenosis Recommendations: - per your medical management - continue PT/OT - He is below baseline function. He is requiring min assist for toileting and bathing, min to mod assist for LB dressing. He has medical necessity and rehab needs that justify an IPR stay. Recommend short course IPR for safe dispo home.
[2024-02-10 11:43] VITALS: BP 91/48; PULSE 71; RESP 16; TEMP 98.7
--- NOTE | 2024-02-10 13:42 | P.DS ---
Providers Date of admission: 02/02/24 14:54 Expected date of discharge: 02/10/24 Attending physician: Jerry Jara Consults: 02/02/24 14:53 Consult Physician Urgent Consulting Provider: Monse Haro Consult Reason/Comments: esrd on pd, volume overload with hypoxia Do you want consulting provider notified?: Already Contacted 02/02/24 15:07 Consult Physician Urgent Consulting Provider: [facility] Consult Reason/Comments: acute volume overload, systolic murmur Do you want consulting provider notified?: Yes 02/03/24 16:31 Consult Physician Routine Consulting Provider: Pavel Odom Consult Reason/Comments: History of right toe amputations Do you want consulting provider notified?: Yes 02/08/24 11:29 Consult Physician Routine Consulting Provider: Joao Hussein Consult Reason/Comments: eval for ipr Do you want consulting provider notified?: Yes Primary care physician: [facility] Course: Final diagnoses End-stage renal dialysis on peritoneal dialysis, with fluid volume overload. Patient has discussed with nephrology about switching over to hemodialysis this admission. Patient now declining hemodialysis. Patient declining rehab. Fluid volume overload secondary to the above, improved Elevated troponin, related to the above, cardiology following Moderate to severe aortic stenosis CAD, history of CABG Hyperlipidemia Diabetes mellitus History of ESBL in peritoneal fluid COVID-19 infection 2020 PAD, history of popliteal bypass, history of right second toe amputation Osteoarthritis Anemia of chronic disease Restless leg syndrome Prior nicotine dependence Hospital course:This is a 78-year-old gentleman with past medical history significant for end-stage renal disease on peritoneal dialysis, CAD, PAD, diabetes mellitus and multiple other medical issues, presented to the ER with complaints of progressive shortness of breath over the last month, orthopnea and weight gain of 10 pounds. Reports he has been compliant with his peritoneal dialysis exchanges and has not missed any. EKG reported sinus rhyth with nonspecific ST and T wave abnormality. Chest x-ray reporting CHF with interstitial pulmonary edema, small bilateral pleural effusions with adjacent atelectasis and/or consolidation. Viral studies negative. Denies chills, fevers, nausea or vomiting. Afebrile, WBC 8.3, hemoglobin 10.8, platelets 250, electrolytes within normal limits, bicarb 25, BUN 102, creatinine 9.76. Blood sugars uncontrolled in the 300s. 02/04/2024 continues on PD as per nephrology, volume status improving. Maintaining O2 sats in the high 90s on 2 L nasal cannula, which can be further titrated. Hypertensive, Coreg initiated, blood pressures improving. Denies lightheadedness, dizziness or focal deficits. Denies headache. Sitting up at bedside, on the phone with his significant other. Denies chest pain, palpitations or shortness of breath. Echo completed, results pending. Reports he slept very well, 8 solid hours-which he states is very unusual for him. 02/07/2024 NPO, scheduled for PARTH and heart catheterization today. Potassium 3.4, replacement ordered .declining further hemodialysis. Potassium 3.4, replacement ordered. Afebrile. Denies chest pain, palpitations or increased shortness of breath. Maintaining O2 sats in the high 90s on 2.5 L nasal cannula. 02/08/2024 status post PARTH and cardiac catheterization reporting severe CAD including 100% LAD, 100% circumflex, 99% RCA. Patent SVG to PDA, SVG to OM1, SVG to diagonal, BALTAZAR to LAD with 1 occluded graft assumed SVG to OM 2. Plan to consider risk factor modification and workup for AVR. Patient declined further testing with cardiology at this time. Requesting to go home, get stronger and will follow-up outpatient. Vital signs stable. 02/09/24 attempting to discharge patient yesterday, but requested patient be evaluated for rehab. Patient is currently peritoneal dialysis, declined to proceed with hemodialysis. Consult placed for inpatient rehab evaluation. Patient appears stronger today, getting up with walker, tolerated exertion well. Vital signs stable. Denies chest pain, palpitations or shortness of breath. Patient declining further hemodialysis;hemodialysis catheter to be discontinued. Discharge planning in progress. IPR at bedside currently evaluating. If patient fails to qualify for IPR , then Dr. Odom to be contacted regarding patient will need a tunnel catheter for hemodialysis if able to be placed, for subacute rehab., otherwise patient will be discharged home on peritoneal dialysis. prognosis guarded given multiple complex medical issues. 02/10/2024 IPR decision pending. Patient no longer wants to go to rehab., requesting to go home. PCP, Dr. Wilson recommended hospice. wishes to take patient home with peritoneal dialysis, reports children are coming home. Hospice information provided to patient's . Agreeable to home care. Patient will be discharged home today in a stable condition with guarded prognosis. The impression and plan of care has been dictated as directed. : I performed a history and examination of this patient, discussed the same with the dictator. I agree with the dictator's note ,documented as a scribe. Any additional findings or plans will be noted. Patient Condition at Discharge: Stable Plan - Discharge Summary Discharge Rx Participant: No New Discharge Prescriptions: New Collagenase [Santyl Ointment] 1 applic TOPICAL DAILY each carvediloL [Coreg*] 12.5 mg PO BID-W/MEALS #60 tab HYDROcodone/APAP 7.5-325MG [S [place] 7.5-325] 1 each PO Q6HR PRN #12 tab PRN Reason: Pain Pantoprazole [Protonix] 40 mg PO AC-BRKFST #30 tab Continue amLODIPine [Norvasc] 10 mg PO DAILY Acetaminophen Tab [Tylenol] 1,000 mg PO Q6H PRN PRN Reason: Fever And/ Or Pain Acyclovir 5% Oint [Zovirax Oint] 1 applic TOPICAL Q3H PRN MDD 6 times a day PRN Reason: Skin Irritation Calcium Acetate [PhosLo] 1,334 mg PO TID-W/MEALS Calcium Acetate [PhosLo] 667 mg PO BID PRN PRN Reason: w/snacks rOPINIRole HCL [Requip] 0.25 mg PO BID Ondansetron [Zofran] 4 mg PO Q8H PRN PRN Reason: Nausea Lactulose [Cephulac] 30 gm PO BID Aspirin EC [Ecotrin Low Dose] 81 mg PO DAILY Changed Insulin Glargine [Lantus Vial] 24 unit SQ DAILY #0 Discontinued carvediloL [Coreg] 25 mg PO TID PRN PRN Reason: SBP greater than 150 Discharge Medication List Calcium Acetate [PhosLo] 1,334 mg PO TID-W/MEALS 09/02/21 [History] Calcium Acetate [PhosLo] 667 mg PO BID PRN 03/09/22 [History] amLODIPine [Norvasc] 10 mg PO DAILY 07/28/22 [History] Lactulose [Cephulac] 30 gm PO BID 07/23/23 [History] Ondansetron [Zofran] 4 mg PO Q8H PRN 07/23/23 [History] rOPINIRole HCL [Requip] 0.25 mg PO BID 07/23/23 [History] Acetaminophen Tab [Tylenol] 1,000 mg PO Q6H PRN 02/02/24 [History] Acyclovir 5% Oint [Zovirax Oint] 1 applic TOPICAL Q3H PRN MDD 6 times a day 02/02/24 [History] Aspirin EC [Ecotrin Low Dose] 81 mg PO DAILY 02/02/24 [History] HYDROcodone/APAP 7.5-325MG [S [place] 7.5-325] 1 each PO Q6HR PRN #12 tab 02/08/24 [Rx] Insulin Glargine [Lantus Vial] 24 unit SQ DAILY #0 02/08/24 [Rx] Pantoprazole [Protonix] 40 mg PO AC-BRKFST #30 tab 02/08/24 [Rx] carvediloL [Coreg*] 12.5 mg PO BID-W/MEALS #60 tab 02/08/24 [Rx] Collagenase [Santyl Ointment] 1 applic TOPICAL DAILY each 02/10/24 [Rx] Follow up Appointment(s)/Referral(s): Jerry Jara Jr, DO [Primary Care Provider] - 1-2 days (please call offcie to make appointment, office closed for lunch) Reinier Macias DO [STAFF PHYSICIAN] - 02/16/24 9:45 am Geraldo [facility], [NON-STAFF] - [facility] [NON-STAFF] - Aman Ocampo DO [STAFF PHYSICIAN] - 1 Week (please call to make appointment, office closed for lunch) [facility] [NON-STAFF] - As Needed (Haylie from [facility] will call you with an appointment time to meet with [facility] team to discuss TAVR) Activity/Diet/Wound Care/Special Instructions: Peritoneal dialysis as per nephrology. Hospice info. given to . Discharge Disposition: HOME WITH HOME HEALTH SERVICES
== END 2024-02-10 12:59 | disposition home health service (06) | DRG 640 ==
LOC: EC 11:43 → 3SCARD 14:54
PROVIDERS: ADMIT Family Medicine; ATTEND Family Medicine
PROC: 3E1M39Z Irrigation of Peritoneal Cavity using Dialysate, Percutaneous Approach (ICD-10-PCS; 2024-02-02)
PROC: 06HN33Z Insertion of Infusion Device into Left Femoral Vein, Percutaneous Approach (ICD-10-PCS; 2024-02-05)
PROC: 5A1D70Z Performance of Urinary Filtration, Intermittent, Less than 6 Hours Per Day (ICD-10-PCS; principal; 2024-02-05 09:00)
PROC: B2131ZZ Fluoroscopy of Multiple Coronary Artery Bypass Grafts using Low Osmolar Contrast (ICD-10-PCS; 2024-02-07)
PROC: B2111ZZ Fluoroscopy of Multiple Coronary Arteries using Low Osmolar Contrast (ICD-10-PCS; 2024-02-07)
PROC: 4A023N7 Measurement of Cardiac Sampling and Pressure, Left Heart, Percutaneous Approach (ICD-10-PCS; 2024-02-07)
PROC: B246ZZ4 Ultrasonography of Right and Left Heart, Transesophageal (ICD-10-PCS; 2024-02-07)
PROC: 0YPBX0Z Removal of Drainage Device from Left Lower Extremity, External Approach (ICD-10-PCS; 2024-02-09)
DX: E87.70 Fluid overload, unspecified (principal); N18.6 End stage renal disease; N17.9 Acute kidney failure, unspecified; I42.9 Cardiomyopathy, unspecified; I13.2 Hypertensive heart and chronic kidney disease with heart failure and with stage 5 chronic kidney disease, or end stage renal disease; I25.810 Atherosclerosis of coronary artery bypass graft(s) without angina pectoris; J98.11 Atelectasis; E11.22 Type 2 diabetes mellitus with diabetic chronic kidney disease; E11.51 Type 2 diabetes mellitus with diabetic peripheral angiopathy without gangrene; D63.1 Anemia in chronic kidney disease; Z99.2 Dependence on renal dialysis; Z99.81 Dependence on supplemental oxygen; E78.5 Hyperlipidemia, unspecified; E87.6 Hypokalemia; G25.81 Restless legs syndrome; I50.9 Heart failure, unspecified; I35.0 Nonrheumatic aortic (valve) stenosis; I25.10 Atherosclerotic heart disease of native coronary artery without angina pectoris; R79.89 Other specified abnormal findings of blood chemistry; E83.9 Disorder of mineral metabolism, unspecified; R09.02 Hypoxemia; Z79.4 Long term (current) use of insulin; Z79.82 Long term (current) use of aspirin; R26.9 Unspecified abnormalities of gait and mobility; M19.90 Unspecified osteoarthritis, unspecified site; Z87.891 Personal history of nicotine dependence; Z79.899 Other long term (current) drug therapy; Z86.16 Personal history of COVID-19; Z28.310 Unvaccinated for COVID-19; Z28.21 Immunization not carried out because of patient refusal; Z95.1 Presence of aortocoronary bypass graft; Z86.19 Personal history of other infectious and parasitic diseases; Z89.421 Acquired absence of other right toe(s); Z71.3 Dietary counseling and surveillance; Z88.5 Allergy status to narcotic agent; Z88.8 Allergy status to other drugs, medicaments and biological substances; Z91.040 Latex allergy status; Z96.642 Presence of left artificial hip joint
CPT/HCPCS: 36415; 36556; 71045; 71046; 76937; 80048; 80053; 82810; 83605; 83690; 83735; 83880; 84484; 85018; 85025; 85610; 85730; 87040; 87070; 87205; 87636; 89050; 90935; 93005; 93306; 93461; 94640; 94760; 99285

== ENCOUNTER 2024-02-22 08:36 | Inpatient (IN) | payer MEDICARE ==
[2024-02-22] MEDS: ACETAMINOPHEN TAB 500 MG TAB PO STA (09:07)
[2024-02-22] MEDS: ONDANSETRON 4 MG/2 ML VIAL IVP STA (09:07)
[2024-02-22 09:42] LABS: ALT 14 U/L (4-49); AST 23 U/L (17-59); African American GFR (CKD) 6 (>60 ml/min/1.73 sqM); Albumin 2.4 g/dL (3.5-5.0); Alkaline Phosphatase 67 U/L (38-126); Anion Gap 11 mmol/L; Blood Urea Nitrogen 80 mg/dL (9-20); Calcium 7.9 mg/dL (8.4-10.2); Carbon Dioxide 27 mmol/L (22-30); Chloride 87 mmol/L (98-107); Glucose 142 mg/dL (74-99); Non-African American GFR(CKD) 5 (>60 ml/min/1.73 sqM); Potassium 4.8 mmol/L (3.5-5.1); Sodium 125 mmol/L (137-145); Total Bilirubin 0.5 mg/dL (0.2-1.3); Total Protein 4.9 g/dL (6.3-8.2)
[2024-02-22 09:51] LABS: Basophils % (A) 0 %; Eosinophils # (A) 0.1 k/uL (0-0.7); Eosinophils % (A) 1 %; HCT 28.2 % (39.0-53.0); HGB 9.3 gm/dL (13.0-17.5); Lymphocytes # (A) 0.7 k/uL (1.0-4.8); Lymphocytes % (A) 4 %; MCH 31.1 pg (25.0-35.0); MCHC 33.2 g/dL (31.0-37.0); Mean Platelet Volume 8.2; Monocytes # (A) 0.8 k/uL (0-1.0); Monocytes % (A) 4 %; Neutrophils % (A) 91 %; Platelet Count 282 k/uL (150-450); RDW 13.4 % (11.5-15.5); WBC 20.8 k/uL (3.8-10.6)
[2024-02-22 09:52] LABS: MCV 93.9 fL (80.0-100.0)
--- NOTE | 2024-02-22 10:07 | XR ---
EXAMINATION TYPE: XR chest 2V DATE OF EXAM: 02/22/2024 COMPARISON: 02/07/2024 TECHNIQUE: PA and lateral views submitted. HISTORY: Pain FINDINGS: There is patchy right-sided perihilar and lower lobe consolidation. Elevated left hemidiaphragm. Hear t size normal. Postmedian sternotomy changes. No sizable pneumothorax. Diffuse osteopenia and arthrop athy of the shoulders. Degenerative change of the spine. IMPRESSION: 1. A patchy right perihilar and lower lobe infiltrate. Differential diagnosis would include asymmetri c venous congestion versus pneumonia.
--- NOTE | 2024-02-22 10:09 | XR ---
EXAMINATION TYPE: XR knee limited RT DATE OF EXAM: 02/22/2024 COMPARISON: NONE HISTORY: Pain TECHNIQUE: Three views are submitted. FINDINGS: Vascular calcifications are seen in the severe arthropathy of the medial compartment and patellofemor al compartment joint. Marginal spurring is seen and there is an enthesophyte along the upper margin s corbin. Diffuse demineralization. There is a localized area of lucency partially included in the field- of-view on involving the distal diaphysis of the femur. Small suprapatellar bursal fluid collection.. Osseous structures are intact. No acute fracture seen. IMPRESSION: 1. No acute fracture or dislocation. 2. Severe osteoarthritis with small suprapatellar bursal fluid collection which can be associated wit h internal derangement of knee. 3. Spotty demineralization involving the osseous structures most noted involving the distal diaphysis femur partially included in the [id number]. Recommend a dedicated femoral series to exclude an in terosseous lesion, particularly if the patient has a history of malignancy.
--- NOTE | 2024-02-22 10:21 | XR ---
EXAMINATION TYPE: XR foot limited RT DATE OF EXAM: 02/22/2024 COMPARISON: NONE HISTORY: 78-year-old male with pain after fall TECHNIQUE: 2 views FINDINGS: Extensive vascular calcifications suggest underlying diabetes in her chronic kidney disease . Previous amputations of the second through fifth toes. There appears to be ulceration at the soft t issue stump. Suspicious focal osteopenia along the lateral aspect of the second metatarsal head. Ther e appears to be ill-defined osteotomy margin at the third and fourth metatarsal necks. Generalized so ft tissue swelling. Tiny plantar heel spur. Mild degenerative spurring at the tibiotalar joint. No ac [place] fracture seen. IMPRESSION: Previous amputation of the second through fifth toes. There appears to be some ulceration of the soft tissue stump. Findings are suspicious for contiguous underlying osteomyelitis at the third and fourt h metatarsal osteotomy margins and possible early osteomyelitis lateral aspect of the second metatars al head.
[2024-02-22] MEDS ORDERED: VANCOMYCIN IV PER PHARMACY 1 EACH MISC MISCELLANE PRN (11:00)
--- NOTE | 2024-02-22 11:52 | ED ---
General Adult HPI - General Chief complaint: Fall Stated complaint: Fall Time Seen by Provider: 02/22/24 08:45 Source: patient, RN notes reviewed, old records reviewed Mode of arrival: EMS Limitations: no limitations, altered mental status - History of Present Illness Initial comments: Patient is a 78-year-old male who presents emergency department complaining of weakness. Has a history of peritoneal dialysis, currently on hospice. Has had a few episodes of emesis at home. Has been coughing as well. No diarrhea. No abdominal pain. Currently is acting his normal baseline. Patient's family's concern for low sodium and brought him here for further evaluation. Also has chronic right foot open wound. Unchanged from normal baseline. 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 Presents with patient's for evaluation. They would like to remain on hospice if possible. Apparently lives with family, son and [id number] at home who are currently out of town. Currently is on hospice. Patient did have a fall but he has a history of frequent falls. Did not hit his head and did not lose consciousness. Is not on blood thinners. Is only complaining of acute on chronic right knee pain. - Related Data Home Medications Medication Instructions Recorded Confirmed Calcium Acetate [PhosLo] 667 mg PO TID-W/MEALS 09/02/21 02/22/24 Calcium Acetate [PhosLo] 667 mg PO BID PRN 03/09/22 02/22/24 Lactulose [Cephulac] 30 gm PO BID PRN 07/23/23 02/22/24 rOPINIRole HCL [Requip] 0.25 mg PO BID 07/23/23 02/22/24 Acetaminophen Tab [Tylenol] 1,000 mg PO Q6H PRN 02/02/24 02/22/24 Aspirin EC [Ecotrin Low Dose] 40.5 mg PO Q48H 02/02/24 02/22/24 Acetaminophen/Diphenhydramine 2 tab PO HS PRN 02/22/24 02/22/24 [Tylenol PM 500-25mg] Insulin Glargine [Lantus Vial] 5 unit SQ DAILY 02/22/24 02/22/24 carvediloL [Coreg*] 12.5 mg PO BID PRN 02/22/24 02/22/24 ondansetron HCL [Zofran] 8 mg PO BID 02/22/24 02/22/24 ondansetron HCL [Zofran] 8 mg PO DAILY PRN 02/22/24 02/22/24 Allergies Allergy/AdvReac Type Severity Reaction Status Date / Time citric acid Allergy Rash/Hives Verified 02/22/24 11:53 with high doses latex Allergy Swelling, Verified 02/22/24 11:53 SKIN TURNED RED,BURNING, ITCHING losartan Allergy Cough Verified 02/22/24 11:53 hydrocodone [From [place]] AdvReac Hallucinati Verified 02/22/24 11:53 ons/Vomitin g Review of Systems ROS Statement: Those systems with pertinent positive or pertinent negative responses have been documented in the HPI. Review of Systems: CONST: Denies fever EYES: Denies blurry vision ENT: Endorses cough C/V: Denies Chest pain RESP: Denies shortness of breath GI: Denies abdominal pain : Denies dysuria SKIN: Endorses chronic right foot wound MSK: Endorses right knee pain NEURO: Denies headache ROS Other: All systems not noted in ROS Statement are negative. 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, LEFT TOTAL HIP, BILATERAL CATARACT SURGERY WITH LENS IMPLANT Past Anesthesia/Blood Transfusion Reactions: No Reported Reaction Past Psychological History: Anxiety Smoking Status: Former smoker Past Alcohol Use History: None Reported Past Drug Use History: None Reported - Past Family History Mother Family Medical History: Cancer Additional Family Medical History / Comment(s): Heart disease Father History Unknown: Yes General Exam - General Exam Comments Initial Comments: General: Appears in no acute distress. HEAD: Normal with no signs of head trauma. EYES: PERRLA, EOMI, conjunctiva normal, no discharge. Pulls are 3 mm and equal bilaterally. ENT: Hearing grossly intact, normal oropharynx. RESPIRATORY: Mildly coarse breath sounds bilaterally. Mild hypoxia on room air at 88%. Improved on 2 L nasal cannula. C/V: Regular rate and rhythm. S1 and S2 auscultated, no edema, peripheral pulses 2+ and intact throughout ABD: Abd is soft, nontender, nondistended EXT: Normal range of motion, no obvious deformity SKIN: Open wound over the right lateral foot. Purulent drainage with mild erythema. Chronic per patient's . NEURO: Currently alert and oriented x 4. No focal deficits. Limitations: no limitations, altered mental status Course Vital Signs 02/22/24 02/22/24 02/22/24 08:38 10:00 11:33 Temperature 97.5 F L Pulse Rate 85 79 73 Respiratory 18 18 18 Rate Blood Pressure 147/60 150/72 151/62 O2 Sat by Pulse 88 L 99 96 Oximetry 02/22/24 13:00 Temperature Pulse Rate 71 Respiratory 18 Rate Blood Pressure 120/45 O2 Sat by Pulse 96 Oximetry Medical Decision Making - Medical Decision Making Was pt. sent in by a medical professional or institution (, PA, GERIATRIC SOCIAL WORK PROFESSOR, urgent care, hospital, or group home...) When possible be specific @ -No Did you speak to anyone other than the patient for history (EMS, parent, family, police, friend...)? What history was obtained from this source @ -Spoke with family, who provides patient's past medical history. Did you review nursing and triage notes (agree or disagree)? Why? @ -I reviewed and agree with nursing and triage notes Were old charts reviewed (outside hosp., previous admission, EMS record, old EKG, old radiological studies, urgent care reports/EKG's, group home records)? Report findings @ -Old charts reviewed Differential Diagnosis (chest pain, altered mental status, abdominal pain women, abdominal pain men, vaginal bleeding, weakness, fever, dyspnea, syncope, headache, dizziness, GI bleed, back pain, seizure, CVA, palpatations, mental health, musculoskeletal)? @ -Differential Weakness: Hypoglycemia, shock, sepsis, hyponatremia, anemia, infection, ND, ETOH, adverse medicine reaction, overdose, stroke, this is not meant to be an all-inclusive list. EKG interpreted by me (3pts min.). @ -As above X-rays interpreted by me (1pt min.). @ -Chest x-ray shows pneumonia. Knee x-ray shows severe degenerative changes. Foot x-ray shows possible osteomyelitis versus chronic changes. CT interpreted by me (1pt min.). @ -None done U/S interpreted by me (1pt. min.). @ -None done What testing was considered but not performed or refused? (CT, X-rays, U/S, labs)? Why? @ -None What meds were considered but not given or refused? Why? @ -None Did you discuss the management of the patient with other professionals (professionals i.e. , PA, GERIATRIC SOCIAL WORK PROFESSOR, lab, RT, psych nurse, oncology social worker, outreach specialist, teacher, school services officer, nurse outreach case manager)? Give summary @ -Discussed with hospice at length who presented bedside to evaluate the patient. After discussion with family and and patient in hospice, determination made to admit the patient to inpatient service on IV antibiotics. Will be temporarily removed from hospice as there is less help at home as patient's family is not currently present at home. Patient will therefore be initiated on IV antibiotics after this discussion as well as some IV fluids. Will symptomatically treat the patient. Was smoking cessation discussed for >3mins.? @ -No Was critical care preformed (if so, how long)? @ -No Were there social determinants of health that impacted care today? How? (Homelessness, low income, unemployed, alcoholism, drug addiction, transportation, low edu. Level, literacy, decrease access to med. care, half-way, rehab)? @ -No Was there de-escalation of care discussed even if they declined (Discuss DNR or withdrawal of care, Hospice)? DNR status @ -Patient remains DNR. Decision made to remove from hospice for inpatient mi ssion at this time. What co-morbidities impacted this encounter? (DM, HTN, Smoking, COPD, CAD, Cance r, CVA, ARF, Chemo, Hep., AIDS, mental health diagnosis, sleep apnea, morbid obesity)? @ -Current hospice, peritoneal dialysis Was patient admitted / discharged? Hospital course, mention meds given and route, prescriptions, significant lab abnormalities, going to OR and other pertinent info. @ -Based on patient's presentation and physical exam, presents with weakness. Is currently on hospice. Has been having cough, congestion, vomiting. Increased weakness. Presents for further evaluation. There is concern for hyponatremia per family. They wish for the patient remain on hospice if possi ble. Currently patient has no additional help at home other than , as typically he does have son and daughter present. Vital signs are remarkable for mild hypoxia which is improved on 2 L nasal cannula. Laboratory studies returned remarkable for leukocytosis of 20, acute on chronic hyponatremia, and otherwise within acceptable limits for the patient. CKD present. Viral swabs negative. Imaging remarkable for pneumonia and possible osteomyelitis. Reevaluation, patient adán unchanged. Hospitalist did come down and evaluate the patient. They are attempting to determine if patient can be made inpatient hospice but decision was made that patient will be admitted to inpatient medicine, hospice on consult, with goal of eventual transfer back to hospice care. Patient's is in agreement this plan. We will hydrate the patient with IV fluids, and admit to medicine. Patient started on IV vancomycin and Zosyn. Blood cultures obtained and sent. I spoke with Dr. Wilson the admitting physician who is also the patient's hospice provider. He wishes to come speak with the patient. After speaking with family and patient and , determination made to admit the patient. For now on antibiotics. Requested consult Dr. Marie this was completed. Patient admitted. Undiagnosed new problem with uncertain prognosis? @ -No Drug Therapy requiring intensive monitoring for toxicity (Heparin, Nitro, Insulin, Cardizem)? @ -No Were any procedures done? @ -No Diagnosis/symptom? @ -Weakness, pneumonia, possible osteomyelitis, dehydration, hyponatremia Acute, or Chronic, or Acute on Chronic? @ -Acute Uncomplicated (without systemic symptoms) or Complicated (systemic symptoms)? @ -Complicated Side effects of treatment? @ -No Exacerbation, Progression, or Severe Exacerbation? @ -No Poses a threat to life or bodily function? How? (Chest pain, USA, ND, pneumonia, PE, COPD, DKA, ARF, appy, cholecystitis, CVA, Diverticulitis, Homicidal, Suicidal, threat to staff... and all critical care pts) @ -Yes - Lab Data Result diagrams: 02/22/24 09:05 02/22/24 09:05 Lab Results 02/22/24 02/22/24 02/22/24 Range/Units 09:05 09:05 09:05 WBC 20.8 H (3.8-10.6) k/uL RBC 3.00 L (4.30-5.90) m/uL Hgb 9.3 L (13.0-17.5) gm/dL Hct 28.2 L (39.0-53.0) % MCV 93.9 D (80.0-100.0) fL MCH 31.1 (25.0-35.0) pg MCHC 33.2 (31.0-37.0) g/dL RDW 13.4 (11.5-15.5) % Plt Count 282 (150-450) k/uL MPV 8.2 Neutrophils % 91 % Lymphocytes % 4 % Monocytes % 4 % Eosinophils % 1 % Basophils % 0 % Neutrophils # 19.0 H (1.3-7.7) k/uL Lymphocytes # 0.7 L (1.0-4.8) k/uL Monocytes # 0.8 (0-1.0) k/uL Eosinophils # 0.1 (0-0.7) k/uL Basophils # 0.0 (0-0.2) k/uL Sodium 125 L (137-145) mmol/L Potassium 4.8 (3.5-5.1) mmol/L Chloride 87 L (98-107) mmol/L Carbon Dioxide 27 (22-30) mmol/L Anion Gap 11 mmol/L BUN 80 H (9-20) mg/dL Creatinine 9.44 H* (0.66-1.25) mg/dL Est GFR (CKD-EPI)AfAm 6 (>60 ml/min/1.73 sqM) Est GFR (CKD-EPI)NonAf 5 (>60 ml/min/1.73 sqM) Glucose 142 H (74-99) mg/dL Calcium 7.9 L (8.4-10.2) mg/dL Total Bilirubin 0.5 (0.2-1.3) mg/dL AST 23 (17-59) U/L ALT 14 (4-49) U/L Alkaline Phosphatase 67 (38-126) U/L Total Protein 4.9 L (6.3-8.2) g/dL Albumin 2.4 L (3.5-5.0) g/dL Influenza Type A (PCR) Not Detected (Not Detectd) Influenza Type B (PCR) Not Detected (Not Detectd) RSV (PCR) Not Detected (Not Detectd) SARS-CoV-2 (PCR) Not Detected (Not Detectd) - EKG Data -: EKG Interpreted by Me EKG Comments: 12-lead Electrocardiogram Interpretation Note EKG was reviewed and interpreted by myself. 12-lead ECG performed at 0841 is interpreted by me as revealing normal sinus rhythm at a rate of 84 beats per minute. [place] is normal. HI interval is 266 ms, QRS duration is 116 ms, QTc is [address] segment and T wave abnormalities. R wave progression across the precordium was satisfactory. By my interpretation this EKG is non- diagnostic for acute ischemia. Disposition Clinical Impression: Pneumonia, Weakness, Osteomyelitis, Dehydration Disposition: ADMITTED IP TO THIS [facility] Condition: Stable Referrals: Jerry Jara Jr, [Primary Care Provider] - 1-2 days Time of Disposition: 13:27
[2024-02-22] MEDS: SODIUM CHLORIDE 0.9% 1,000 ML IV STA (12:01)
[2024-02-22] MEDS: PIPERACILLIN-TAZOBACTAM 3.375 GM in SODIUM CHLORIDE 0.9% 100 ML IVPB SCH ×2 (12:01→23:22)
[2024-02-22] MEDS: SODIUM CHLORIDE 0.9% 500 ML 500 ML IV STA (12:01)
[2024-02-22] MEDS ORDERED: NALOXONE 0.4 MG/ML 1 ML VIAL IV PRN (13:18)
[2024-02-22] MEDS ORDERED: ONDANSETRON 4 MG/2 ML VIAL IVP PRN (13:18)
[2024-02-22] MEDS: VANCOMYCIN 1,250 MG in SODIUM CHLORIDE 0.9% 250 ML IVPB ONE (13:28)
[2024-02-22] MEDS ORDERED: carvediloL 12.5 MG TAB PO PRN (13:36)
[2024-02-22] MEDS ORDERED: diphenhydrAMINE 25 MG CAP PO PRN (13:36)
[2024-02-22] MEDS: ASPIRIN 81 MG PO SCH (15:30)
--- NOTE | 2024-02-22 16:34 | P.GSCN ---
History of Present Illness History of present illness: 78-year-old gentleman well-known to me from the past patient has a history of chronic renal failure patient was in the hospital which was discharge and now today he came with history of vomiting emesis possible pneumonia right cell count i 20,000 x-ray of foot shows possible early osteo of the metatarsals this patient had a this patient had a right foot second third fourth and fifth toe r ay amputation done in the past and will be treating with local wound care. No active discharge or noted some greenish tissue present we have been treating with Medihoney gel x-ray shows possible early osteo involving the metatarsal bone On examination patient was seen in his room chest few crackles the lung bases. Second sound present Abdomen is soft nontender patient has a peritoneal dialysis Femorals are 1+ bilateral patient has a wound on the right foot post amputation continue with local wound care discussed with ID for antibiotic possible MRI of the right foot to rule out osteo follow with you in the dressing daily with Medihoney gel Past Medical History Past Medical History: Coronary Artery Disease (CAD), Diabetes Mellitus, Dialysis, Hypertension, Renal Disease Additional Past Medical History / Comment(s): PERITONEAL DIALYSIS - -4 TIMES DAILY , POOR CIRCULATION IN LOWER LEGS, low sodium, wound to left foot, History of Any Multi-Drug Resistant Organisms: None Reported Year Discovered:: 09/03/21 MDRO Source:: ESBL PERITONEAL FLUID Past Surgical History: Coronary Bypass/CABG, Heart Catheterization, Joint Rep lacement Additional Past Surgical History / Comment(s): 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, LEFT TOTAL HIP, BILATERAL CATARACT SURGERY WITH LENS IMPLANT Past Anesthesia/Blood Transfusion Reactions: No Reported Reaction Past Psychological History: Anxiety Smoking Status: Former smoker Past Alcohol Use History: None Reported Past Drug Use History: None Reported - Past Family History Mother Family Medical History: Cancer Additional Family Medical History / Comment(s): Heart disease Father History Unknown: Yes Medications and Allergies Home Medications Medication Instructions Recorded Confirmed Type Calcium Acetate [PhosLo] 667 mg PO TID-W/MEALS 09/02/21 02/22/24 History Calcium Acetate [PhosLo] 667 mg PO BID PRN 03/09/22 02/22/24 History Lactulose [Cephulac] 30 gm PO BID PRN 07/23/23 02/22/24 History rOPINIRole HCL [Requip] 0.25 mg PO BID 07/23/23 02/22/24 History Acetaminophen Tab [Tylenol] 1,000 mg PO Q6H PRN 02/02/24 02/22/24 History Aspirin EC [Ecotrin Low Dose] 40.5 mg PO Q48H 02/02/24 02/22/24 History Acetaminophen/Diphenhydramine 2 tab PO HS PRN 02/22/24 02/22/24 History [Tylenol PM 500-25mg] Insulin Glargine [Lantus Vial] 5 unit SQ DAILY 02/22/24 02/22/24 History carvediloL [Coreg*] 12.5 mg PO BID PRN 02/22/24 02/22/24 History ondansetron HCL [Zofran] 8 mg PO BID 02/22/24 02/22/24 History ondansetron HCL [Zofran] 8 mg PO DAILY PRN 02/22/24 02/22/24 History Allergies Allergy/AdvReac Type Severity Reaction Status Date / Time citric acid Allergy Rash/Hives Verified 02/22/24 11:53 with high doses latex Allergy Swelling, Verified 02/22/24 11:53 SKIN TURNED RED,BURNING, ITCHING losartan Allergy Cough Verified 02/22/24 11:53 hydrocodone [From [place]] AdvReac Hallucinati Verified 02/22/24 11:53 ons/Vomitin g Surgical - Exam Vital Signs Temp Pulse Resp BP Pulse Ox 97.5 F L 85 18 147/60 88 L 02/22/24 08:38 02/22/24 08:38 02/22/24 08:38 02/22/24 08:38 02/22/24 08:38 Results - Labs 02/22/24 09:05 02/22/24 09:05 Abnormal Lab Results - Last 24 Hours (Table) 02/22/24 02/22/24 Range/Units 09:05 09:05 WBC 20.8 H (3.8-10.6) k/uL RBC 3.00 L (4.30-5.90) m/uL Hgb 9.3 L (13.0-17.5) gm/dL Hct 28.2 L (39.0-53.0) % Neutrophils # 19.0 H (1.3-7.7) k/uL Lymphocytes # 0.7 L (1.0-4.8) k/uL Sodium 125 L (137-145) mmol/L Chloride 87 L (98-107) mmol/L BUN 80 H (9-20) mg/dL Creatinine 9.44 H* (0.66-1.25) mg/dL Glucose 142 H (74-99) mg/dL Calcium 7.9 L (8.4-10.2) mg/dL Total Protein 4.9 L (6.3-8.2) g/dL Albumin 2.4 L (3.5-5.0) g/dL Diabetes panel 02/22/24 Range/Units 09:05 Sodium 125 L (137-145) mmol/L Potassium 4.8 (3.5-5.1) mmol/L Chloride 87 L (98-107) mmol/L Carbon Dioxide 27 (22-30) mmol/L BUN 80 H (9-20) mg/dL Creatinine 9.44 H* (0.66-1.25) mg/dL Glucose 142 H (74-99) mg/dL Calcium 7.9 L (8.4-10.2) mg/dL AST 23 (17-59) U/L ALT 14 (4-49) U/L Alkaline Phosphatase 67 (38-126) U/L Total Protein 4.9 L (6.3-8.2) g/dL Albumin 2.4 L (3.5-5.0) g/dL Calcium panel 02/22/24 Range/Units 09:05 Calcium 7.9 L (8.4-10.2) mg/dL Albumin 2.4 L (3.5-5.0) g/dL Pituitary panel 02/22/24 Range/Units 09:05 Sodium 125 L (137-145) mmol/L Potassium 4.8 (3.5-5.1) mmol/L Chloride 87 L (98-107) mmol/L Carbon Dioxide 27 (22-30) mmol/L BUN 80 H (9-20) mg/dL Creatinine 9.44 H* (0.66-1.25) mg/dL Glucose 142 H (74-99) mg/dL Calcium 7.9 L (8.4-10.2) mg/dL Adrenal panel 02/22/24 Range/Units 09:05 Sodium 125 L (137-145) mmol/L Potassium 4.8 (3.5-5.1) mmol/L Chloride 87 L (98-107) mmol/L Carbon Dioxide 27 (22-30) mmol/L BUN 80 H (9-20) mg/dL Creatinine 9.44 H* (0.66-1.25) mg/dL Glucose 142 H (74-99) mg/dL Calcium 7.9 L (8.4-10.2) mg/dL Total Bilirubin 0.5 (0.2-1.3) mg/dL AST 23 (17-59) U/L ALT 14 (4-49) U/L Alkaline Phosphatase 67 (38-126) U/L Total Protein 4.9 L (6.3-8.2) g/dL Albumin 2.4 L (3.5-5.0) g/dL
[2024-02-22] MEDS: DIALYSIS (PERIT 1.5%) 2,000 ML 30 G/2,000 ML BAG INTRAPERIT SCH (18:32)
--- NOTE | 2024-02-22 19:24 | P.HPIM ---
History of Present Illness H&P Date: 02/23/24 Chief Complaint: Increased weakness ,end-stage renal disease on hospice This is a 78-year-old gentleman with past medical history significant for End- stage renal disease on peritoneal dialysis, CAD, PAD, popliteal bypass, right second toe amputation, chronic right foot open wound ,diabetes mellitus and multiple other medical issues recently transitioned to hospice on 02/10/2024. Patient was brought into the ER via EMS. reports patient was declining, increased weakness, recent fall the night before, few episodes of nausea and vomiting, occasional cough. Patient denies head trauma, complains of mild right knee pain. Knee x-ray reported no acute fracture or dislocation. patient's reported that her son and [id number] who live with her and help in patien t's care, had gone on vacation and she was unable to handle him alone. She had made multiple phone calls throughout the night to hospice who eventually structured her to bring him into the hospital.mild hypoxia on admission, requiring 2 L nasal cannula maintain O2 sats in the 90s .chest x-ray reported patchy right perihilar and lower lobe infiltrate possible venous congestion versus pneumonia. IV antibiotics of Zosyn initiated in the ER. Evaluated by vascular surgery recommending further workup. Patient and are both stating they wish to remain on hospice .Patient does not want to be admitted and is at the same time asking for admission. Discussed with Hospice team, bereavement team and radarman have been arranged for additional resources. Review of Systems ROS Statement: Those systems with pertinent positive or pertinent negative responses have been documented in the HPI. ROS Other: All systems not noted in ROS Statement are negative. 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, LEFT TOTAL HIP, BILATERAL CATARACT SURGERY WITH LENS IMPLANT Past Anesthesia/Blood Transfusion Reactions: No Reported Reaction Past Psychological History: Anxiety Smoking Status: Former smoker Past Alcohol Use History: None Reported Additional Past Alcohol Use History / Comment(s): STARTED SMOKING AT AGE 16 QUIT AT AGE 29 SMOKED 1PPD Past Drug Use History: None Reported - Past Family History Mother Family Medical History: Cancer Additional Family Medical History / Comment(s): Heart disease Father History Unknown: Yes Medications and Allergies Home Medications Medication Instructions Recorded Confirmed Type Calcium Acetate [PhosLo] 667 mg PO TID-W/MEALS 09/02/21 02/22/24 History Lactulose [Cephulac] 30 gm PO BID PRN 07/23/23 02/22/24 History rOPINIRole HCL [Requip] 0.25 mg PO BID 07/23/23 02/22/24 History Acetaminophen Tab [Tylenol] 1,000 mg PO Q6H PRN 02/02/24 02/22/24 History Aspirin EC [Ecotrin Low Dose] 40.5 mg PO Q48H 02/02/24 02/22/24 History Acetaminophen/Diphenhydramine 2 tab PO HS PRN 02/22/24 02/22/24 History [Tylenol PM 500-25mg] Insulin Glargine [Lantus Vial] 5 unit SQ DAILY 02/22/24 02/22/24 History carvediloL [Coreg*] 12.5 mg PO BID PRN 02/22/24 02/22/24 History ondansetron HCL [Zofran] 8 mg PO BID 02/22/24 02/22/24 History ondansetron HCL [Zofran] 8 mg PO DAILY PRN 02/22/24 02/22/24 History Amoxic-Pot Clav 500-125 mg 1 tab PO DAILY 3 Days #3 tab 02/23/24 Rx [Augmentin 500-125 mg] Allergies Allergy/AdvReac Type Severity Reaction Status Date / Time citric acid Allergy Rash/Hives Verified 02/22/24 11:53 with high doses latex Allergy Swelling, Verified 02/22/24 11:53 SKIN TURNED RED,BURNING, ITCHING losartan Allergy Cough Verified 02/22/24 11:53 hydrocodone [From [place]] AdvReac Hallucinati Verified 02/22/24 11:53 ons/Vomitin g Physical Exam Vitals: Vital Signs Temp Pulse Pulse Resp BP BP Pulse Ox 02/22/24 16:09 97.7 F 68 16 153/65 96 02/22/24 15:29 98.4 F 74 18 153/84 98 02/22/24 13:00 71 18 120/45 96 02/22/24 11:33 73 18 151/62 96 02/22/24 10:00 79 18 150/72 99 02/22/24 08:38 97.5 F L 85 18 147/60 88 L Intake and Output 02/22/24 02/22/24 02/22/24 06:59 14:59 22:59 Other: # Voids 0 Weight 66.406 kg 66.406 kg GENERAL: Alert and oriented 3, Sitting up on stretcher, no acute distress. HEENT: Normocephalic, FERNANDO,sclera anicteric, conjunctiva normal.MMM. NECK: Supple, no JVD. LUNGS: Unlabored, equal air entry, fine bibasilar crackles HEART: Regular rate and rhythm without , systolic ejection murmur ABDOMEN: Soft, nontender, normoactive bowel sounds. No guarding, no rebound. No masses appreciated. Peritoneal dialysis catheter present without irritation. EXTREMITIES:No lower extremity edema, no clubbing or cyanosis. NEUROLOGICAL: Cranial nerves II through XII grossly intact. No focal deficits. SKIN: Warm, Dry, no rashes noted. Results CBC & Chem 7: 02/23/24 06:50 02/23/24 06:50 Labs: Abnormal Lab Results - Last 24 Hours (Table) 02/22/24 02/22/24 Range/Units 09:05 09:05 WBC 20.8 H (3.8-10.6) k/uL RBC 3.00 L (4.30-5.90) m/uL Hgb 9.3 L (13.0-17.5) gm/dL Hct 28.2 L (39.0-53.0) % Neutrophils # 19.0 H (1.3-7.7) k/uL Lymphocytes # 0.7 L (1.0-4.8) k/uL Sodium 125 L (137-145) mmol/L Chloride 87 L (98-107) mmol/L BUN 80 H (9-20) mg/dL Creatinine 9.44 H* (0.66-1.25) mg/dL Glucose 142 H (74-99) mg/dL Calcium 7.9 L (8.4-10.2) mg/dL Total Protein 4.9 L (6.3-8.2) g/dL Albumin 2.4 L (3.5-5.0) g/dL Thrombosis Risk Factor Assmnt - Choose All That Apply Any of the Below Risk Factors Present?: Yes Other Risk Factors: Yes Each Risk Factor Represents 3 Points: Age 75 years or older Other congenital or acquired thrombophilia - If yes, enter type in comment: No Thrombosis Risk Factor Assessment Total Risk Factor Score: 3 Thrombosis Risk Factor Assessment Level: Moderate Risk Assessment and Plan Assessment: Generalized weakness and debility in a patient on hospice. Chronic right foot wound, evaluated by vascular surgery. End-stage renal dialysis on peritoneal dialysis. On prior admission, patient discussed with nephrology about converting over to hemodialysis, patient later declined. On prior admission patient declined rehab. and opened up with hospice. Moderate to severe aortic stenosis CAD, history of CABG Hyperlipidemia Diabetes mellitus History of ESBL in peritoneal fluid COVID-19 infection 2020 PAD, history of popliteal bypass, history of right second toe amputation Osteoarthritis Anemia of chronic disease Restless leg syndrome Prior nicotine dependence Plan: Continue on current medication resume ,monitoring and symptomatic treatment. Patient is adamant that he does not wish to be admitted to the hospital. Patient's discussed she is unable to take care of him at home. Discussed with [facility], who met with family a couple times and discussed also with another daughter Davina who is an DIRECTOR OF EXHIBITS from [employer], discharge plan. Patient will be discharged back home tomorrow to hospice in the morning, DIRECTOR OF EXHIBITS daughter will be down tomorrow to help with patient's care while her other siblings are away. Bereavement team and radarman have been consulted by hospice team. At this time patient's wishes to proceed with peritoneal dialysis. prognosis guarded given multiple complex medical issues. The impression and plan of care has been dictated as directed. : I performed a history and examination of this patient, discussed the same with the dictator. I agree with the dictator's note ,documented as a scribe. Any additional findings or plans will be noted.
[2024-02-22 20:30] LABS: Glucose,Whole Blood 177 mg/dL (70-110)
[2024-02-22] MEDS: LACTULOSE 20 GM/30 ML CUP PO PRN (20:37)
[2024-02-22] MEDS: ACETAMINOPHEN TAB 500 MG TAB PO PRN (23:21)
[2024-02-23 07:41] LABS: Glucose,Whole Blood 144 mg/dL (70-110)
[2024-02-23] MEDS: VANCOMYCIN 1,250 MG in SODIUM CHLORIDE 0.9% 250 ML IVPB ONE (08:30)
--- NOTE | 2024-02-23 10:53 | P.NPCON ---
History of Present Illness - Reason for Consult end stage renal disease - History of Present Illness Reason for consultation: End-stage renal disease History of present illness: Patient is a 78-year-old male seen in renal consultation for end-stage renal disease. He is maintained on peritoneal dialysis. Patient came to the hospital due to generalized weakness. Patient states he fell off his bed last night and was weak and could not get up. He was subsequently brought to the hospital. He denies losing consciousness. It is noted in the chart that patient is on hospice but is continuing with his peritoneal dialysis. Patient states dialysate has been clear. Hemodynamically stable. Denies chest pain or shortness of breath. No vomiting or diarrhea. Afebrile. No acute fractures noted. Patient does have right foot wound with toe amputation in the past. He is currently being seen by vascular surgery as an on antibiotics. Vital signs are stable. General: No acute distress. HEENT: Head exam is unremarkable. On nasal cannula. LUNGS: No audible rhonchi or wheezes. HEART: Rate and Rhythm are regular. ABDOMEN: Nontender. EXTREMITITES: No edema. Chronic changes noted. 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, LEFT TOTAL HIP, BILATERAL CATARACT SURGERY WITH LENS IMPLANT Past Anesthesia/Blood Transfusion Reactions: No Reported Reaction Past Psychological History: Anxiety Smoking Status: Former smoker Past Alcohol Use History: None Reported Additional Past Alcohol Use History / Comment(s): STARTED SMOKING AT AGE 16 QUIT AT AGE 29 SMOKED 1PPD Past Drug Use History: None Reported - Past Family History Mother Family Medical History: Cancer Additional Family Medical History / Comment(s): Heart disease Father History Unknown: Yes Medications and Allergies Home Medications Medication Instructions Recorded Confirmed Type Calcium Acetate [PhosLo] 667 mg PO TID-W/MEALS 09/02/21 02/22/24 History Lactulose [Cephulac] 30 gm PO BID PRN 10/06/23 05/07/24 History rOPINIRole HCL [Requip] 0.25 mg PO BID 07/23/23 02/22/24 History Acetaminophen Tab [Tylenol] 1,000 mg PO Q6H PRN 02/02/24 02/22/24 History Aspirin EC [Ecotrin Low Dose] 40.5 mg PO Q48H 02/02/24 02/22/24 History Acetaminophen/Diphenhydramine 2 tab PO HS PRN 02/22/24 02/22/24 History [Tylenol PM 500-25mg] Insulin Glargine [Lantus Vial] 5 unit SQ DAILY 02/22/24 02/22/24 History carvediloL [Coreg*] 12.5 mg PO BID PRN 02/22/24 02/22/24 History ondansetron HCL [Zofran] 8 mg PO BID 02/22/24 02/22/24 History ondansetron HCL [Zofran] 8 mg PO DAILY PRN 02/22/24 02/22/24 History Amoxic-Pot Clav 500-125 mg 1 tab PO DAILY 3 Days #3 tab 02/23/24 Rx [Augmentin 500-125 mg] Allergies Allergy/AdvReac Type Severity Reaction Status Date / Time citric acid Allergy Rash/Hives Verified 02/22/24 11:53 with high doses latex Allergy Swelling, Verified 02/22/24 11:53 SKIN TURNED RED,BURNING, ITCHING losartan Allergy Cough Verified 02/22/24 11:53 hydrocodone [From [place]] AdvReac Hallucinati Verified 02/22/24 11:53 ons/Vomitin g Physical Exam Vitals: Vital Signs Temp Pulse Pulse Resp BP BP BP 02/23/24 10:16 02/23/24 07:53 97.4 F L 64 16 119/44 02/23/24 06:05 98.9 F 72 18 155/72 02/23/24 00:36 98.7 F 68 18 108/68 02/22/24 20:00 97.7 F 70 16 164/78 02/22/24 16:09 97.7 F 68 16 153/65 02/22/24 15:29 98.4 F 74 18 153/84 02/22/24 13:00 71 18 120/45 02/22/24 11:33 73 18 151/62 Pulse Ox 02/23/24 10:16 84 L 02/23/24 07:53 99 02/23/24 06:05 94 L 02/23/24 00:36 95 02/22/24 20:00 94 L 02/22/24 16:09 96 02/22/24 15:29 98 02/22/24 13:00 96 02/22/24 11:33 96 Intake and Output 02/22/24 02/23/24 02/23/24 22:59 06:59 14:59 Intake Total 120 590 Output Total 0 Balance 120 590 Intake: Oral 120 590 Output: Urine 0 Other: Voiding Method Urinal # Voids 0 Weight 66.406 kg Results - Lab Results Most recent lab results Calcium 7.9 mg/dL (8.4-10.2) L 02/22/24 09:05 02/22/24 09:05 02/22/24 09:05 Assessment and Plan Plan: Assessment: 1. End-stage renal disease maintained on peritoneal dialysis. 2. Right foot wound status post toes amputation. Seen by vascular surgery. On antibiotics. 3. Generalized weakness and debility. 4. Chronic kidney disease mineral bone disease. 5. Coronary artery disease status post CABG. 6. Anemia of chronic kidney disease. 7. Multiple falls. 8. Hyponatremia secondary to chronic kidney disease. Plan: Maintain current PD exchanges. Check iron studies. Add Aranesp. Plan is to go home on hospice. Thank you for the consultation. I will continue to follow the patient with you during his hospital stay.
[2024-02-23 10:54] LABS: Basophils # (A) 0.08 X 10*3/uL (0.00-0.10); Basophils % (A) 0.5 %; Eosinophils # (A) 0.92 X 10*3/uL (0.04-0.35); Eosinophils % (A) 6.3 %; Lymphocytes # (A) 1.47 X 10*3/uL (0.90-5.00); Lymphocytes % (A) 10.1 %; MCHC 33.3 g/dL (32.0-37.0); Mean Platelet Volume 10.5 FL (9.5-12.2); Monocytes # (A) 0.91 X 10*3/uL (0.20-1.00); Monocytes % (A) 6.3 %; NRBC Per 100 WBC 0 X 10*3/uL (0.00-0.01); Neutrophils # (A) 11.11 X 10*3/uL (1.80-7.70); Neutrophils % (A) 76.4 %; Platelet Count 294 X 10*3/uL (140-440); RBC 2.58 X 10*6/uL (4.40-5.60); RDW 13.2 % (11.5-14.5); WBC 14.55 X 10*3/uL (4.50-10.00)
[2024-02-23 11:08] LABS: BUN/Creat Ratio 7.54 Ratio (12.00-20.00); Blood Urea Nitrogen 78.4 mg/dL (9.0-27.0); Glucose 102 mg/dL (70-110)
[2024-02-23 11:09] LABS: Carbon Dioxide 23.8 mmol/L (21.6-31.8); Chloride 86 mmol/L (96-109); Potassium 4.9 mmol/L (3.5-5.5); Sodium 127 mmol/L (135-145)
[2024-02-23] MEDS: DARBEPOETIN ALFA 40 MCG/0.4 ML SYRINGE SQ SCH (12:24)
[2024-02-23 13:42] VITALS: BP 192/72; PULSE 66; RESP 18; TEMP 97.6
--- NOTE | 2024-02-23 13:56 | P.DS ---
Providers Date of admission: 02/22/24 13:22 Expected date of discharge: 02/23/24 Attending physician: Devon Wilson Consults: 02/22/24 13:18 Consult Physician Routine Consulting Provider: Pavel Odom Consult Reason/Comments: osteomyelitis Do you want consulting provider notified?: Yes 02/22/24 14:08 Consult Physician Routine Consulting Provider: Aman Ocampo Consult Reason/Comments: peritoneal dialysis Do you want consulting provider notified?: Yes 02/22/24 16:37 Consult Physician Routine Consulting Provider: Prashant Ortega Consult Reason/Comments: Right foot wound Do you want consulting provider notified?: Yes Primary care physician: [facility] Course: Final Diagnoses: Generalized weakness and debility in a patient on hospice, with acute hypoxic respiratory failure, dehydration and possible early right lower lobe pneumonia. Chronic right foot wound, evaluated by vascular surgery. End-stage renal dialysis on peritoneal dialysis. On prior admission, patient discussed with nephrology about converting over to hemodialysis, patient later declined. On prior admission patient declined rehab. and opened up with hospice. Moderate to severe aortic stenosis CAD, history of CABG Hyperlipidemia Diabetes mellitus History of ESBL in peritoneal fluid COVID-19 infection 2020 PAD, history of popliteal bypass, history of right second toe amputation Osteoarthritis Anemia of chronic disease Restless leg syndrome Prior nicotine dependence Hospital course: H&P Date: 02/23/24 Chief Complaint: Increased weakness ,end-stage renal disease on hospice This is a 78-year-old gentleman with past medical history significant for End- stage renal disease on peritoneal dialysis, CAD, PAD, popliteal bypass, right second toe amputation, chronic right foot open wound ,diabetes mellitus and multiple other medical issues recently transitioned to hospice on 02/10/2024. Patient was brought into the ER via EMS. reports patient was declining, increased weakness, recent fall the night before, few episodes of nausea and vomiting, occasional cough. Patient denies head trauma, complains of mild right knee pain. Knee x-ray reported no acute fracture or dislocation. patient's reported that her son and [id number] who live with her and help in patient's care, had gone on vacation and she was unable to handle him alone. She had made multiple phone calls throughout the night to hospice who eventually structured her to bring him into the hospital.mild hypoxia on admission, requiring 2 L nasal cannula maintain O2 sats in the 90s .chest x-ray reported patchy right perihilar and lower lobe infiltrate possible venous congestion versus pneumonia. IV antibiotics of Zosyn initiated in the ER. Evaluated by vascular surgery recommending further workup. Patient and are both stating they wish to remain on hospice .Patient does not want to be admitted and is at the same time asking for admission. Discussed with Hospice team, bereavement team and party plan salesperson have been arranged for additional resources. Patient is adamant that he does not wish to be admitted to the hospital. Patient's discussed she is unable to take care of him at home. Discussed with [facility], who met with family a couple times and discussed also with another daughter Davina who is an MOBILE PHONE SALESPERSON from [employer], discharge plan. Patient will be discharged back home tomorrow to hospice in the morning, MOBILE PHONE SALESPERSON daughter will be down tomorrow to help with patient's care while her other siblings are away. Bereavement team and party plan salesperson have been consulted by hospice team. At this time patient's wishes to proceed with peritoneal dialysis. prognosis guarded given multiple complex medical issues. Patient's daughter and in room, met with PCP Dr. Wilson at bedside. Dr. Wilson changed patient's foot dressing. Patient and family had a lengthy discussion regarding prognosis, hospice. Discussed resources available to them through hospice. Discussed respite care options are limited as his wishes to continue patient on peritoneal dialysis at this time. feels comfortable taking patient back home with hospice today as she now has her daughter from [employer] here to assist her. Patient will require oxygen at discharge for his acute hypoxic respiratory failure, O2 sats on room air is 87%. Hospice has met with the family and arranging for DME with transfer home early this afternoon. Patient will be discharged home today in the stable condition with guarded prognosis. The impression and plan of care has been dictated as directed. : I performed a history and examination of this patient, discussed the same with the dictator. I agree with the dictator's note ,documented as a scribe. Any additional findings or plans will be noted. Patient Condition at Discharge: Stable Plan - Discharge Summary New Discharge Prescriptions: New Amoxic-Pot Clav 500-125 mg [Augmentin 500-125 mg] 1 tab PO DAILY 3 Days #3 tab Discontinued Calcium Acetate [PhosLo] 667 mg PO BID PRN PRN Reason: w/snacks No Action Acetaminophen Tab [Tylenol] 1,000 mg PO Q6H PRN PRN Reason: Fever And/ Or Pain carvediloL [Coreg*] 12.5 mg PO BID PRN PRN Reason: Blood Pressure - High Calcium Acetate [PhosLo] 667 mg PO TID-W/MEALS rOPINIRole HCL [Requip] 0.25 mg PO BID Lactulose [Cephulac] 30 gm PO BID PRN PRN Reason: Constipation Aspirin EC [Ecotrin Low Dose] 40.5 mg PO Q48H ondansetron HCL [Zofran] 8 mg PO DAILY PRN PRN Reason: Nausea And Vomiting ondansetron HCL [Zofran] 8 mg PO BID Insulin Glargine [Lantus Vial] 5 unit SQ DAILY Acetaminophen/Diphenhydramine [Tylenol PM 500-25mg] 2 tab PO HS PRN PRN Reason: Pain Discharge Medication List Calcium Acetate [PhosLo] 667 mg PO TID-W/MEALS 09/02/21 [History] Lactulose [Cephulac] 30 gm PO BID PRN 07/23/23 [History] rOPINIRole HCL [Requip] 0.25 mg PO BID 07/23/23 [History] Acetaminophen Tab [Tylenol] 1,000 mg PO Q6H PRN 02/02/24 [History] Aspirin EC [Ecotrin Low Dose] 40.5 mg PO Q48H 02/02/24 [History] Acetaminophen/Diphenhydramine [Tylenol PM 500-25mg] 2 tab PO HS PRN 02/22/24 [History] Insulin Glargine [Lantus Vial] 5 unit SQ DAILY 02/22/24 [History] carvediloL [Coreg*] 12.5 mg PO BID PRN 02/22/24 [History] ondansetron HCL [Zofran] 8 mg PO BID 02/22/24 [History] ondansetron HCL [Zofran] 8 mg PO DAILY PRN 02/22/24 [History] Amoxic-Pot Clav 500-125 mg [Augmentin 500-125 mg] 1 tab PO DAILY 3 Days #3 tab 02/23/24 [Rx] Follow up Appointment(s)/Referral(s): Jerry Jara Jr, [Primary Care Provider] - As Needed [facility], [NON-STAFF] - 1 Week Activity/Diet/Wound Care/Special Instructions: Home with hospice Discharge Disposition: HOME WITH HOSPICE
--- NOTE | 2024-02-23 14:27 | CDI ---
Documentation Clarification Form Date: 02/23/2024 02:06:39 PM From: Yaz Hernandez RN CCDS Phone: [phone] Admit Date: 02/22/2024 01:22:00 PM Patient Name: Ferdinand Renner Visit Number: [id number] Discharge Date: ATTENTION: The Clinical Documentation Specialists (CDI) and [facility] Coding Staff appreciate your assistance in clarifying documentation. Please respond to the clarification below the line at the bottom and electronically sign. The CDI & [facility] Coding staff will review the response and follow-up if needed. Please note: Queries are made part of the Legal Health Record. If you have any questions, please contact the author of this message via ITS. Astrid Awad Your patient is receiving the following: Zoysn, 02/21. Please clarify what condition/diagnosis is being treated. History/Risk Factors: 78-year-old male presents to the ED for increased weakness, emesis at home coughing and fall out of bed. Medical History: ESRD, DM, CAD, Peritoneal Dialysis, Second toe amputation, frequent falls and transitioned to hospice on 02/10/2024. 02/21,H&P Clinical indicators: VSS, 02/21: B/P 147/60; HR 85; Temp 97.5; RR 18; SpO2 88% room air. LABS, 02/21: Wbc 20.8, Neutrophils 19.0, CXR, 02/21: A patchy right perihilar and lower lobe infiltrate. Differential diagnosis would include asymmetric venous congestion versus pneumonia. ED note, 02/21: Pneumonia, Weakness, Osteomyelitis, Dehydration. Vascular surgery consult, 02/21: Examination On examination patient was seen in his room chest few crackles the lung bases. Second sound present. Possible pneumonia wbc 20,000. H&P, 02/21: Unlabored, equal air entry, fine bibasilar crackles. Treatment: 02/21 11:00 02/21 12:01 Zosyn 3.375gm 100mls @ 25mls/hr IVPB Q8H RAIN; 02/22 00:00 Zoysn 3.375mg 100mls @ 25mls/hr IVPB Q12H 02/21 0.9ns 500mls @ 999mls/hr IV x 1 What diagnosis are you treating with Zoysn IV? [ ] Pneumonia [ ] Other, please specify [ ] Unable to determine Pneumonia Documented in discharge summary 02/21 Dr. Katie Kaminski NP, (Template Last Reviewed: November 2020) NADEGE
[2024-02-23 19:23] LABS: % Iron Saturation 8.28 (15.00-50.00)
--- NOTE | 2024-02-25 15:04 | CDI ---
Documentation Clarification Form Date: 02/25/2024 02:52:52 PM From: Astrid Valle Phone: Admit Date: 02/22/2024 01:22:00 PM Patient Name: Ferdinand Renner Visit Number: [id number] Discharge Date: 02/23/2024 03:31:00 PM ATTENTION: The Clinical Documentation Specialists (CDI) and [facility] Coding Staff appreciate your assistance in clarifying documentation. Please respond to the clarification below the line at the bottom and electronically sign. The CDI & [facility] Coding staff will review the response and follow-up if needed. Please note: Queries are made part of the Legal Health Record. If you have any questions, please contact the author of this message via ITS. Dr. Devon Wilson There is documentation of a chronic rightfoot open wound per ED Note and throughout the Notes. Additional specificity regarding the etiology and severity of the wound is requested. Patient history/risk factors: 78yo M, , CAD w Hx CABG, HLD, DMII w ESRD & PAD, sp Rt 2ndtoe amputation, OA, dehydration, osteomyelitis,anemia d/t ESRD, RLS, former smoker, hospice Pt Clinical Indicators: Wound assessment: Chronic right footwound X-rayReport 02/21: Previousamputationof the second through fifth toes. There appears to be some ulcerationof the soft tissuestump. Findings aresuspicious forcontiguous underlyingosteomyelitisat the t3rd & 4th metatarsalosteotomymargins andpossibleearlyosteomyelitislateral aspect of the second metatarsal head. Treatment: evaluated by vascular surgery Please clarify the etiology and severity of the wound: Etiology: [ ] Non-pressure chronic ulcer due to diabetes [ ] Non-pressure chronic ulcer due to arterial insufficiency [ ] Non-pressure chronic ulcer due to venous insufficiency [ ] Other, Please specify [ ] Unable to determine Severity: [ ] Limited to breakdown of skin [ ] With fat layer exposed [ ] With necrosis of bone [ ] Other, Please specify [ ] Unable to determine (Template Last Revised: December 2020) MTDD
--- NOTE | 2024-02-28 11:02 | CDI ---
Documentation Clarification Form Date: 02/28/2024 10:56:21 AM From: Astrid Valle Phone: Admit Date: 02/22/2024 01:22:00 PM Patient Name: Ferdinand Renner Visit Number: [id number] Discharge Date: 02/23/2024 03:31:00 PM ATTENTION: The Clinical Documentation Specialists (CDI) and [facility] Coding Staff appreciate your assistance in clarifying documentation. Please respond to the clarification below the line at the bottom and electronically sign. The CDI & [facility] Coding staff will review the response and follow-up if needed. Please note: Queries are made part of the Legal Health Record. If you have any questions, please contact the author of this message via ITS. Dr. Devon Wilson Thank you for acknowledging the previous query; however, it lacked a response. There is documentation of a chronic rightfoot open woundper ED Note and throughout the Notes. Additional specificity regarding the etiology and severity of thewoundis requested. Patient history/risk factors: 78yo M, ,CADw HxCABG,HLD,DMIIwESRD& PAD, OA,dehydration,osteomyelitis,sp Rt 2ndtoe amputation,anemiad/tESRD,RLS, former smoker, hospice Pt Clinical Indicators: Woundassessment: Chronic right footwound X-rayReport 02/21: Previousamputationof the 2-5 toes. There appears to be someulcerationof the soft tissuestump. Findings aresuspicious forcontiguous underlyingosteomyelitisat the 3rd 4th metatarsalosteotomymargins andpossibleearlyosteomyelitislateral aspect of the 2nd metatarsal head. Treatment: evaluated by vascular surgery Please clarify the etiology and severity of thewound: Etiology: [ X]Non-pressurechroniculcer due to diabetes [ ]Non-pressurechroniculcerdue toarterial insufficiency [ ]Non-pressurechroniculcerdue tovenous insufficiency [ ] Other, Please specify [ ] Unable to determine Severity: [ ] Limited tobreakdownof skin [ X] With fat layer exposed [ ] Withnecrosisof bone [ ] Other, Please specify [ ] Unable to determine (Template LastRevised: December 2020) MTDD
--- NOTE | 2024-03-01 22:34 | P.CONS ---
History of Present Illness - Reason for Consult Consult date: 02/23/24 Foot wound Requesting physician: Pavel Odom - Chief Complaint Nonhealing wound to the right foot x months - History of Present Illness Patient is a 78-year-old male with a past medical history difficult for coronary disease diabetes mellitus hypertension renal disease in this patient who did have a history of right diabetic foot wound status post right foot second third fourth and fifth toe ray amputation apparently was done in October [address] Odom and the patient has been following with him in the wound care center for a nonhealing wound patient family mention he was not on any IV antibiotic therapy after his amputation surgery, patient has been brought into the hospital for evaluation of increased weakness recent fall and nonhealing wound to the right today which apparently seem to have more drainage for the last few days patient did have neuropathy denies significant pain to the foot area patient on presentation to the hospital was afebrile and no fever have recorded subsequently patient was not tachycardic or hypotensive mildly hypoxic currently on 3 L nasal cannula oxygen he did have elevated white count 20,000 with a left shift BUN/creatinine has been elevated liver isms are normal influenza RSV COVID testing was negative blood cultures obtained which are currently pending patient did have a chest x-ray patchy right perihilar and left lower lobe infiltrate patient did have a foot x-ray previous amputation and there appears to be ulceration of the soft tissue stump findings suspicious for continued underlying osteomyelitis at the third and fourth metatarsal head prompting this consultation patient has been evaluated by vascular surgery recommending local treatment with the Medihoney gel Review of Systems Positive point and negatives has been mentioned in the HPI, complete review of systems was performed and all other systems are negative Past Medical History Past Medical History: Coronary Artery Disease (CAD), Diabetes Mellitus, Dialysis, Hypertension, Renal Disease Additional Past Medical History / Comment(s): PERITONEAL DIALYSIS - -4 TIMES DAILY , POOR CIRCULATION IN LOWER LEGS, low sodium, wound to left foot, History of Any Multi-Drug Resistant Organisms: None Reported Year Discovered:: 09/03/21 MDRO Source:: ESBL PERITONEAL FLUID Past Surgical History: Coronary Bypass/CABG, Heart Catheterization, Joint Repl acement Additional Past Surgical History / Comment(s): 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, LEFT TOTAL HIP, BILATERAL CATARACT SURGERY WITH LENS IMPLANT Past Anesthesia/Blood Transfusion Reactions: No Reported Reaction Past Psychological History: Anxiety Smoking Status: Former smoker Past Alcohol Use History: None Reported Additional Past Alcohol Use History / Comment(s): STARTED SMOKING AT AGE 16 QUIT AT AGE 29 SMOKED 1PPD Past Drug Use History: None Reported - Past Family History Mother Family Medical History: Cancer Additional Family Medical History / Comment(s): Heart disease Father History Unknown: Yes Medications and Allergies Home Medications Medication Instructions Recorded Confirmed Type Calcium Acetate [PhosLo] 667 mg PO TID-W/MEALS 09/02/21 02/22/24 History Lactulose [Cephulac] 30 gm PO BID PRN 07/23/23 02/22/24 History rOPINIRole HCL [Requip] 0.25 mg PO BID 07/23/23 02/22/24 History Acetaminophen Tab [Tylenol] 1,000 mg PO Q6H PRN 02/02/24 02/22/24 History Aspirin EC [Ecotrin Low Dose] 40.5 mg PO Q48H 02/02/24 02/22/24 History Acetaminophen/Diphenhydramine 2 tab PO HS PRN 02/22/24 02/22/24 History [Tylenol PM 500-25mg] Insulin Glargine [Lantus Vial] 5 unit SQ DAILY 02/22/24 02/22/24 History carvediloL [Coreg*] 12.5 mg PO BID PRN 02/22/24 02/22/24 History ondansetron HCL [Zofran] 8 mg PO BID 02/22/24 02/22/24 History ondansetron HCL [Zofran] 8 mg PO DAILY PRN 02/22/24 02/22/24 History Amoxic-Pot Clav 500-125 mg 1 tab PO DAILY 3 Days #3 tab 02/23/24 Rx [Augmentin 500-125 mg] Allergies Allergy/AdvReac Type Severity Reaction Status Date / Time citric acid Allergy Rash/Hives Verified 02/22/24 11:53 with high doses latex Allergy Swelling, Verified 02/22/24 11:53 SKIN TURNED RED,BURNING, ITCHING losartan Allergy Cough Verified 02/22/24 11:53 hydrocodone [From [place]] AdvReac Hallucinati Verified 02/22/24 11:53 ons/Vomitin g Physical Exam Vitals: Vital Signs Temp Pulse Pulse Resp BP BP BP 02/23/24 10:16 02/23/24 07:53 97.4 F L 64 16 119/44 02/23/24 06:05 98.9 F 72 18 155/72 02/23/24 00:36 98.7 F 68 18 108/68 02/22/24 20:00 97.7 F 70 16 164/78 02/22/24 16:09 97.7 F 68 16 153/65 02/22/24 15:29 98.4 F 74 18 153/84 02/22/24 13:00 71 18 120/45 02/22/24 11:33 73 18 151/62 Pulse Ox 02/23/24 10:16 84 L 02/23/24 07:53 99 02/23/24 06:05 94 L 02/23/24 00:36 95 02/22/24 20:00 94 L 02/22/24 16:09 96 02/22/24 15:29 98 02/22/24 13:00 96 02/22/24 11:33 96 Intake and Output 02/22/24 02/23/24 02/23/24 22:59 06:59 14:59 Intake Total 120 590 Output Total 0 Balance 120 590 Intake: Oral 120 590 Output: Urine 0 Other: Voiding Method Urinal # Voids 0 Weight 66.406 kg GENERAL DESCRIPTION: Elderly male lying in bed, no distress. No tachypnea or accessory muscle of respiration use. HEENT: Shows Pallor , no scleral icterus. Oral mucous membrane is dry. No pharyngeal erythema or thrush NECK: Trachea central, no thyromegaly. LUNGS: Unlabored breathing. Clear to auscultation anteriorly. No wheeze or crackle. HEART: S1, S2, regular rate and rhythm. No loud murmur ABDOMEN: Soft, no tenderness , guarding or rigidity, no organomegaly EXTREMITIES: Right foot site of surgical amputation of his toes did have some soft tissue no foul-smelling drainage SKIN: No rash, no masses palpable. NEUROLOGICAL: The patient is awake, alert, oriented x3, mood and affect normal. Results CBC & Chem 7: 02/23/24 06:50 02/23/24 06:50 Labs: Abnormal Lab Results - Last 24 Hours (Table) 02/22/24 02/23/24 Range/Units 20:29 07:38 POC Glucose (mg/dL) 177 H 144 H (70-110) mg/dL Assessment and Plan (1) Ulcer of right foot due to type 2 diabetes mellitus Status: Acute Code(s): E11.621 - TYPE 2 DIABETES MELLITUS WITH FOOT ULCER; L97.519 - NON-PRS CHRONIC ULCER OTH PRT RIGHT FOOT W UNSP SEVERITY SNOMED Code(s): 13647176133049800 (2) Osteomyelitis Status: Acute Code(s): M86.9 - OSTEOMYELITIS, UNSPECIFIED SNOMED Code(s): 42674542 Plan: 1patient with a chronic nonhealing wound to the right foot after amputation of his 2nd-5th toe this patient noted to have history of diabetes in multiple comorbidities admitted to hospital with weakness and fall nonhealing wound and x-ray suspicious for osteomyelitis did have elevated white count we will need to cover for the polymicrobial stella associated with diabetic foot infection. 2Case has been discussed with vascular surgery he will benefit from surgical debridement and deep culture and discharge antibiotic on the basis of those culture 3-patient is covered with Zosyn 3.375 g without to continue along with vancomycin 4-local wound care to continue with the Medihoney followed by moist dressing change daily Multiple question concern were answered We will follow on clinical condition and cultures to further adjust medication if needed Thank you for this consultation we will follow the patient along with you Dictation was produced using [employer] dictation software. please excuse any grammatical, word or spelling errors. Time with Patient: Greater than 30
== END 2024-02-23 15:31 | disposition hospice, home (50) | DRG 193 ==
LOC: EC 08:36 → 5NMEDONC 13:22
PROVIDERS: ADMIT Family Medicine; ATTEND Family Medicine
DX: J18.9 Pneumonia, unspecified organism (principal); J96.01 Acute respiratory failure with hypoxia; N18.6 End stage renal disease; I12.0 Hypertensive chronic kidney disease with stage 5 chronic kidney disease or end stage renal disease; E87.1 Hypo-osmolality and hyponatremia; M86.8X7 Other osteomyelitis, ankle and foot; L97.412 Non-pressure chronic ulcer of right heel and midfoot with fat layer exposed; E11.22 Type 2 diabetes mellitus with diabetic chronic kidney disease; I70.401 Unspecified atherosclerosis of autologous vein bypass graft(s) of the extremities, right leg; E11.51 Type 2 diabetes mellitus with diabetic peripheral angiopathy without gangrene; E11.621 Type 2 diabetes mellitus with foot ulcer; E11.69 Type 2 diabetes mellitus with other specified complication; E11.42 Type 2 diabetes mellitus with diabetic polyneuropathy; Z89.421 Acquired absence of other right toe(s); Z99.2 Dependence on renal dialysis; Z79.4 Long term (current) use of insulin; Z51.5 Encounter for palliative care; Z66 Do not resuscitate; D63.1 Anemia in chronic kidney disease; I35.0 Nonrheumatic aortic (valve) stenosis; G25.81 Restless legs syndrome; E86.0 Dehydration; M19.90 Unspecified osteoarthritis, unspecified site; I25.10 Atherosclerotic heart disease of native coronary artery without angina pectoris; E78.5 Hyperlipidemia, unspecified; M89.8X9 Other specified disorders of bone, unspecified site; R29.6 Repeated falls; G89.29 Other chronic pain; M25.561 Pain in right knee; W06.XXXA Fall from bed, initial encounter; Z96.642 Presence of left artificial hip joint; Y92.003 Bedroom of unspecified non-institutional (private) residence as the place of occurrence of the external cause; Z95.1 Presence of aortocoronary bypass graft; Z87.891 Personal history of nicotine dependence; Z79.82 Long term (current) use of aspirin; Z86.16 Personal history of COVID-19; Z86.19 Personal history of other infectious and parasitic diseases; Z91.81 History of falling; Z79.899 Other long term (current) drug therapy; Z91.02 Food additives allergy status; Z91.040 Latex allergy status; Z88.8 Allergy status to other drugs, medicaments and biological substances; Z88.5 Allergy status to narcotic agent
CPT/HCPCS: 36415; 71046; 80048; 80053; 82728; 83540; 83550; 85025; 87040; 87636; 93005; 94760; 96365; 96366; 96367; 96375; 99285

== ENCOUNTER 2024-03-30 20:16 | Inpatient (IN) | payer MEDICARE ==
--- NOTE | 2024-03-30 20:26 | ED ---
General Adult HPI - General Source: patient, family Mode of arrival: wheelchair <Cori Fuller - Last Filed: 03/30/24 21:52> - General Source: patient, family, RN notes reviewed Limitations: no limitations <Evi Fowler - Last Filed: 04/04/24 11:57> - General Stated complaint: Catheter Issues Time Seen by Provider: 03/30/24 20:24 - History of Present Illness Initial comments: Quick note: 78-year-old male sent by his breakdown man Dr. Haro for removal of his peritoneal dialysis catheter. Documentation reports that it is infected. His states that he has been weak and vomiting. He has been unable to keep down any food or fluids. He is currently complaining of abdominal pain. (Cori Fuller) 78 year old male presents to the emergency department for peritoneal dialysis catheter removal. Patient states that he was sent in by his breakdown man, Dr. Haro. He has been dealing with an infection in the area for a while and has been receiving intraperitoneal antibiotics with his dialysis. He states that the usama new cultures in the cultures were still positive. Patient admits to diffuse abdominal pain which has been going on for many months. Denies fever, chills. He does admit to occasional vomiting. (Evi Fowler) - Related Data Home Medications Medication Instructions Recorded Confirmed Calcium Acetate [PhosLo] 667 mg PO TID-W/MEALS 09/02/21 03/31/24 Lactulose [Cephulac] 30 gm PO BID PRN 07/23/23 03/31/24 rOPINIRole HCL [Requip] 0.25 mg PO BID 07/23/23 03/31/24 Aspirin EC [Ecotrin Low Dose] 81 mg PO Q2D 02/02/24 03/31/24 ondansetron HCL [Zofran] 8 mg PO Q8H PRN 02/22/24 03/31/24 Sodium Chloride Tab 1 gm PO DAILY 03/31/24 03/31/24 amLODIPine 10 mg PO DAILY 03/31/24 03/31/24 Previous Rx's Medication Instructions Recorded Insulin Glargine [Lantus Vial] 4 unit SQ DAILY #0 04/03/24 carvediloL [Coreg] 12.5 mg PO TID #0 04/03/24 Allergies Allergy/AdvReac Type Severity Reaction Status Date / Time latex Allergy Swelling, Verified 03/31/24 08:39 SKIN TURNED RED,BURNING, ITCHING hydrocodone [From [place]] AdvReac Hallucinati Verified 03/31/24 08:39 ons/Vomitin g losartan AdvReac Cough Verified 03/31/24 08:39 Review of Systems ROS Other: All systems not noted in ROS Statement are negative. <Cori Fuller - Last Filed: 03/30/24 21:52> ROS Other: All systems not noted in ROS Statement are negative. <Evi Fowler - Last Filed: 04/04/24 11:57> ROS Statement: Those systems with pertinent positive or pertinent negative responses have been documented in the HPI. 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, LEFT TOTAL HIP, BILATERAL CATARACT SURGERY WITH LENS IMPLANT Past Anesthesia/Blood Transfusion Reactions: No Reported Reaction Past Psychological History: Anxiety Smoking Status: Former smoker Past Alcohol Use History: None Reported Additional Past Alcohol Use History / Comment(s): STARTED SMOKING AT AGE 16 QUIT AT AGE 29 SMOKED 1PPD Past Drug Use History: None Reported - Past Family History Mother Family Medical History: Cancer Additional Family Medical History / Comment(s): Heart disease Father History Unknown: Yes <Cori Fuller - Last Filed: 03/30/24 21:52> General Exam <Cori Fuller - Last Filed: 03/30/24 21:52> Limitations: no limitations General appearance: alert, in no apparent distress Head exam: Present: atraumatic, normocephalic, normal inspection Eye exam: Present: normal appearance, PERRL, EOMI. Absent: scleral icterus, conjunctival injection, periorbital swelling ENT exam: Present: normal exam, mucous membranes moist Neck exam: Present: normal inspection. Absent: tenderness, meningismus, lymphadenopathy Respiratory exam: Present: normal lung sounds bilaterally. Absent: respiratory distress, wheezes, rales, rhonchi, stridor Cardiovascular Exam: Present: regular rate, normal rhythm, normal heart sounds. Absent: systolic murmur, diastolic murmur, rubs, gallop, clicks GI/Abdominal exam: Present: soft, tenderness (diffuse), normal bowel sounds, other (PD catheter in place, no obvious surrounding erythema, drainage). Absent: distended, guarding, rebound, rigid Extremities exam: Present: normal inspection, full ROM, normal capillary refill. Absent: tenderness, pedal edema, joint swelling, calf tenderness Neurological exam: Present: alert, oriented X3 Psychiatric exam: Present: normal affect, normal mood Skin exam: Present: warm, dry, intact, normal color. Absent: rash <Evi Fowler - Last Filed: 04/04/24 11:57> - General Exam Comments Initial Comments: Visual Physical Exam Vital signs reviewed General: Well-appearing, nontoxic, no acute distress. Head: Normocephalic, atraumatic Eyes: PERRLA, EOMI ENT: Airway patent Chest: Nonlabored breathing Skin: No visual rash, normal skin tone Neuro: Alert and oriented 3 Musculoskeletal: No gross abnormalities (Cori Fuller) Course Vital Signs 03/30/24 03/30/24 03/31/24 20:21 23:35 00:49 Temperature 97.4 F L 97.7 F Pulse Rate 78 81 82 Respiratory 18 18 18 Rate Blood Pressure 182/71 111/50 149/81 O2 Sat by Pulse 98 88 L 92 L Oximetry 03/31/24 03/31/24 03/31/24 03:26 05:00 06:00 Temperature 98.2 F Pulse Rate 84 72 71 Respiratory 20 18 18 Rate Blood Pressure 146/88 113/49 110/59 O2 Sat by Pulse 93 L 93 L 92 L Oximetry 03/31/24 03/31/24 07:22 12:04 Temperature Pulse Rate 60 78 Respiratory 22 18 Rate Blood Pressure 141/69 146/84 O2 Sat by Pulse 94 L 94 L Oximetry Medical Decision Making - Lab Data Result diagrams: 03/30/24 21:04 03/30/24 21:04 <Cori Fuller - Last Filed: 03/30/24 21:52> - Lab Data Result diagrams: 04/02/24 09:58 04/02/24 09:58 <AurawonEvi - Last Filed: 04/04/24 11:57> - Medical Decision Making I performed the quick note portion of this visit, electronically signed Cori Fuller PA-C (Cori Fuller) Was pt. sent in by a medical professional or institution (, PA, ASSEMBLY MANAGER, urgent care, hospital, or penitentiary...) When possible be specific @ -No Did you speak to anyone other than the patient for history (EMS, parent, family, police, friend...)? What history was obtained from this source @ -No Did you review nursing and triage notes (agree or disagree)? Why? @ -I reviewed and agree with nursing and triage notes Were old charts reviewed (outside hosp., previous admission, EMS record, old EKG, old radiological studies, urgent care reports/EKG's, penitentiary records)? Report findings @ -No old charts were reviewed Differential Diagnosis (chest pain, altered mental status, abdominal pain women, abdominal pain men, vaginal bleeding, weakness, fever, dyspnea, syncope, headache, dizziness, GI bleed, back pain, seizure, CVA, palpatations, mental health, musculoskeletal)? @ -Differential Abdominal Pain Men: Appendicitis, cholecystitis, diverticulosis, ischemic bowel, pancreatitis, hepatitis, UTI, gastroenteritis, AAA, incarcerated hernia, bowel obstruction, constipation, inflammatory bowel, hepatitis, peptic ulcer disease, splenic infarction, perforated viscus, testicular torsion, this is not meant to be an all-inclusive list EKG interpreted by me (3pts min.). @ -None X-rays interpreted by me (1pt min.). @ -None done CT interpreted by me (1pt min.). @ -None done U/S interpreted by me (1pt. min.). @ -None done What testing was considered but not performed or refused? (CT, X-rays, U/S, labs)? Why? @ -None What meds were considered but not given or refused? Why? @ -None Did you discuss the management of the patient with other professionals (professionals i.e. , ALVAREZ, ASSEMBLY MANAGER, lab, RT, psych nurse, health social work professor, emergency manager, teacher, international first officer, spring encaser)? Give summary @ -Case discussed with Dr. Jara who is accepting of the admission Was smoking cessation discussed for >3mins.? @ -No Was critical care preformed (if so, how long)? @ -No Were there social determinants of health that impacted care today? How? (Homelessness, low income, unemployed, alcoholism, drug addiction, transportation, low edu. Level, literacy, decrease access to med. care, senior living, rehab)? @ -No Was there de-escalation of care discussed even if they declined (Discuss DNR or withdrawal of care, Hospice)? DNR status @ -No What co-morbidities impacted this encounter? (DM, HTN, Smoking, COPD, CAD, Cancer, CVA, ARF, Chemo, Hep., AIDS, mental health diagnosis, sleep apnea, morbid obesity)? @ -None Was patient admitted / discharged? Hospital course, mention meds given and route, prescriptions, significant lab abnormalities, going to OR and other pertinent info. @ -Admitted. Patient presented to the emergency department for evaluation of peritoneal dialysis catheter issues. Patient underwent laboratory studies. Patient has mild leukocytosis at 12.5, hemoglobin 9.6, patient hyponatremic at 125 which appears to be chronic looking back on his prior laboratory studies., Creatinine 8.11. Patient underwent blood cultures. Patient started on IV antibiotics. He will be admitted for possible peritonitis with consultation to surgery, infectious disease, nephrology. Case was discussed with Dr. Jara who is accepting of the admission. Undiagnosed new problem with uncertain prognosis? @ -No Drug Therapy requiring intensive monitoring for toxicity (Heparin, Nitro, Insulin, Cardizem)? @ -No Were any procedures done? @ -No Diagnosis/symptom? @ -peritonitis secondary to peritoneal dialysis catheter Acute, or Chronic, or Acute on Chronic? @ -Acute Uncomplicated (without systemic symptoms) or Complicated (systemic symptoms)? @ -Complicated Side effects of treatment? @ -No Exacerbation, Progression, or Severe Exacerbation? @ -No Poses a threat to life or bodily function? How? (Chest pain, [place], [place], pneumonia, PE, COPD, DKA, ARF, appy, cholecystitis, CVA, Diverticulitis, Homicidal, Suicidal, threat to staff... and all critical care pts) @ -No (Evi Fowler) - Lab Data Lab Results 03/30/24 03/30/24 03/30/24 Range/Units 21:04 21:04 21:04 WBC 12.5 H (3.8-10.6) k/uL RBC 3.11 L (4.30-5.90) m/uL Hgb 9.6 L (13.0-17.5) gm/dL Hct 30.3 L (39.0-53.0) % MCV 97.5 (80.0-100.0) fL MCH 30.8 (25.0-35.0) pg MCHC 31.6 (31.0-37.0) g/dL RDW 13.8 (11.5-15.5) % Plt Count 304 (150-450) k/uL MPV 8.4 Neutrophils % 89 % Lymphocytes % 3 % Monocytes % 4 % Eosinophils % 2 % Basophils % 0 % Neutrophils # 11.1 H (1.3-7.7) k/uL Lymphocytes # 0.4 L (1.0-4.8) k/uL Monocytes # 0.5 (0-1.0) k/uL Eosinophils # 0.3 (0-0.7) k/uL Basophils # 0.0 (0-0.2) k/uL Sodium 125 L (137-145) mmol/L Potassium 5.0 (3.5-5.1) mmol/L Chloride 92 L (98-107) mmol/L Carbon Dioxide 25 (22-30) mmol/L Anion Gap 8 mmol/L BUN 82 H (9-20) mg/dL Creatinine 8.11 H* (0.66-1.25) mg/dL Est GFR (CKD-EPI)AfAm 7 (>60 ml/min/1.73 sqM) Est GFR (CKD-EPI)NonAf 6 (>60 ml/min/1.73 sqM) Glucose 196 H (74-99) mg/dL POC Glucose (mg/dL) (70-110) mg/dL POC Glu Pharmacy Billing Adjudicator ID Plasma Lactic Acid Bill 1.0 (0.7-2.0) mmol/L Calcium 8.4 (8.4-10.2) mg/dL Total Bilirubin 0.5 (0.2-1.3) mg/dL AST 18 (17-59) U/L ALT 11 (4-49) U/L Alkaline Phosphatase 61 (38-126) U/L Total Protein 5.0 L (6.3-8.2) g/dL Albumin 2.5 L (3.5-5.0) g/dL 03/31/24 Range/Units 02:01 WBC (3.8-10.6) k/uL RBC (4.30-5.90) m/uL Hgb (13.0-17.5) gm/dL Hct (39.0-53.0) % MCV (80.0-100.0) fL MCH (25.0-35.0) pg MCHC (31.0-37.0) g/dL RDW (11.5-15.5) % Plt Count (150-450) k/uL MPV Neutrophils % % Lymphocytes % % Monocytes % % Eosinophils % % Basophils % % Neutrophils # (1.3-7.7) k/uL Lymphocytes # (1.0-4.8) k/uL Monocytes # (0-1.0) k/uL Eosinophils # (0-0.7) k/uL Basophils # (0-0.2) k/uL Sodium (137-145) mmol/L Potassium (3.5-5.1) mmol/L Chloride (98-107) mmol/L Carbon Dioxide (22-30) mmol/L Anion Gap mmol/L BUN (9-20) mg/dL Creatinine (0.66-1.25) mg/dL Est GFR (CKD-EPI)AfAm (>60 ml/min/1.73 sqM) Est GFR (CKD-EPI)NonAf (>60 ml/min/1.73 sqM) Glucose (74-99) mg/dL POC Glucose (mg/dL) 182 H (70-110) mg/dL POC Glu Pharmacy Billing Adjudicator ID Claudy Cowan Plasma Lactic Acid Bill (0.7-2.0) mmol/L Calcium (8.4-10.2) mg/dL Total Bilirubin (0.2-1.3) mg/dL AST (17-59) U/L ALT (4-49) U/L Alkaline Phosphatase (38-126) U/L Total Protein (6.3-8.2) g/dL Albumin (3.5-5.0) g/dL Disposition <Cori Fuller - Last Filed: 03/30/24 21:52> Is patient prescribed a controlled substance at d/c from ED?: No <Evi Fowler - Last Filed: 04/04/24 11:57> Clinical Impression: Peritonitis associated with peritoneal dialysis Disposition: ADMITTED IP TO THIS HOSP Condition: Stable
[2024-03-30 21:24] LABS: ALT 11 U/L (4-49); AST 18 U/L (17-59); African American GFR (CKD) 7 (>60 ml/min/1.73 sqM); Albumin 2.5 g/dL (3.5-5.0); Alkaline Phosphatase 61 U/L (38-126); Anion Gap 8 mmol/L; Blood Urea Nitrogen 82 mg/dL (9-20); Calcium 8.4 mg/dL (8.4-10.2); Carbon Dioxide 25 mmol/L (22-30); Chloride 92 mmol/L (98-107); Glucose 196 mg/dL (74-99); Non-African American GFR(CKD) 6 (>60 ml/min/1.73 sqM); Sodium 125 mmol/L (137-145); Total Bilirubin 0.5 mg/dL (0.2-1.3)
[2024-03-30 21:25] LABS: Basophils % (A) 0 %; Eosinophils # (A) 0.3 k/uL (0-0.7); Eosinophils % (A) 2 %; HCT 30.3 % (39.0-53.0); HGB 9.6 gm/dL (13.0-17.5); Lymphocytes # (A) 0.4 k/uL (1.0-4.8); Lymphocytes % (A) 3 %; MCH 30.8 pg (25.0-35.0); MCHC 31.6 g/dL (31.0-37.0); MCV 97.5 fL (80.0-100.0); Mean Platelet Volume 8.4; Monocytes # (A) 0.5 k/uL (0-1.0); Monocytes % (A) 4 %; Neutrophils # (A) 11.1 k/uL (1.3-7.7); Neutrophils % (A) 89 %; Platelet Count 304 k/uL (150-450); RBC 3.11 m/uL (4.30-5.90); RDW 13.8 % (11.5-15.5); WBC 12.5 k/uL (3.8-10.6)
[2024-03-31] MEDS: HYDROmorphone 0.5 MG/0.5 ML SYRINGE IVP STA (00:50)
[2024-03-31] MEDS ORDERED: NALOXONE 0.4 MG/ML 1 ML VIAL IV PRN (01:58)
[2024-03-31 02:04] LABS: Glucose,Whole Blood 182 mg/dL (70-110)
[2024-03-31] MEDS: PIPERACILLIN-TAZOBACTAM 2.25 GM in SODIUM CHLORIDE 0.9% 100 ML IVPB STA (02:08)
[2024-03-31] MEDS: HYDROmorphone 0.5 MG/0.5 ML SYRINGE IVP PRN (03:30)
[2024-03-31] MEDS: ANIDULAFUNGIN 200 MG in SODIUM CHLORIDE 0.9% 200 ML IVPB ONE (08:12)
[2024-03-31 08:17] LABS: Glucose,Whole Blood 133 mg/dL (70-110)
--- NOTE | 2024-03-31 09:38 | P.HPIM ---
History of Present Illness H&P Date: 03/31/24 Chief Complaint: Increased weakness ,end-stage renal disease on hospice This is a 78-year-old gentleman on hospice with past medical history significant for End-stage renal disease on peritoneal dialysis, CAD, PAD, popliteal bypass, right second toe amputation, chronic right foot open wound ,diabetes mellitus and multiple other medical issues recently transitioned to hospice on 02/10/2024. ER reports patient was sent in by Dr. Haro, carpentry supervisor for removal of his peritoneal dialysis catheter with documentation reporting that is infected. Discussed with Dr. Haro, reporting patient developed peritonitis, treated with intraperitoneal antibiotics with recent cultures returning 2 days ago reporting Chelsie parapsilosis. At that time patient was started on oral Diflucan but continued to present with abdominal pain and elevated white count. Patient states he was having abdominal pain, nausea and vomiting, attributing it to eating too much at one setting versus eating frequent smaller meals. Diet intake worsened and he became weaker. Denies falls or trauma. Currently abdominal pain only with burping. Denies fevers, states always has chills. Reports his peritoneal dialysis return was clear not cloudy. Afebrile, WBC 12.5. hemoglobin 9.6, platelets 304, sodium 125, potassium 5, bicarb 25 BUN 82, creatinine 8.11, glucose 190, LFTs within normal limits, total protein 5, albumin 2.5. Received a dose of IV Zosyn .Currently on Eraxis as per infectious disease. Hypertensive on admission, blood pressure is now better controlled. Review of Systems ROS Statement: Those systems with pertinent positive or pertinent negative responses have been documented in the HPI. ROS Other: All systems not noted in ROS Statement are negative. 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, LEFT TOTAL HIP, BILATERAL CATARACT SURGERY WITH LENS IMPLANT Past Anesthesia/Blood Transfusion Reactions: No Reported Reaction Past Psychological History: Anxiety Smoking Status: Former smoker Past Alcohol Use History: None Reported Additional Past Alcohol Use History / Comment(s): STARTED SMOKING AT AGE 16 QUIT AT AGE 29 SMOKED 1PPD Past Drug Use History: None Reported - Past Family History Mother Family Medical History: Cancer Additional Family Medical History / Comment(s): Heart disease Father History Unknown: Yes Medications and Allergies Home Medications Medication Instructions Recorded Confirmed Type Calcium Acetate [PhosLo] 667 mg PO TID-W/MEALS 09/02/21 03/31/24 History Lactulose [Cephulac] 30 gm PO BID PRN 07/23/23 03/31/24 History rOPINIRole HCL [Requip] 0.25 mg PO BID 07/23/23 03/31/24 History Aspirin EC [Ecotrin Low Dose] 81 mg PO Q2D 02/02/24 03/31/24 History Insulin Glargine [Lantus Vial] 2 - 4 unit SQ DAILY PRN 02/22/24 03/31/24 History ondansetron HCL [Zofran] 8 mg PO Q8H PRN 02/22/24 03/31/24 History Fluconazole [Diflucan] See Taper PO DAILY 03/31/24 03/31/24 History HYDROmorphone [Dilaudid] 2 mg PO Q4H PRN 03/31/24 03/31/24 History Sodium Chloride Tab 1 gm PO DAILY 03/31/24 03/31/24 History amLODIPine 10 mg PO DAILY 03/31/24 03/31/24 History carvediloL [Coreg] 12.5 - 25 mg PO TID PRN 03/31/24 03/31/24 History Allergies Allergy/AdvReac Type Severity Reaction Status Date / Time latex Allergy Swelling, Verified 03/31/24 08:39 SKIN TURNED RED,BURNING, ITCHING hydrocodone [From [place]] AdvReac Hallucinati Verified 03/31/24 08:39 ons/Vomitin g losartan AdvReac Cough Verified 03/31/24 08:39 Physical Exam Vitals: Vital Signs Temp Pulse Resp BP Pulse Ox 03/31/24 07:22 60 22 141/69 94 L 03/31/24 06:00 71 18 110/59 92 L 03/31/24 05:00 98.2 F 72 18 113/49 93 L 03/31/24 03:26 84 20 146/88 93 L 03/31/24 00:49 82 18 149/81 92 L 03/30/24 23:35 97.7 F 81 18 111/50 88 L 03/30/24 20:21 97.4 F L 78 18 182/71 98 Intake and Output 03/30/24 03/31/24 03/31/24 22:59 06:59 14:59 Other: Weight 71.668 kg GENERAL: Alert and oriented 3, Sitting up on stretcher, no acute distress. HEENT: Normocephalic, FERNANDO,sclera anicteric, conjunctiva normal. NECK: Supple, no JVD. LUNGS: Unlabored, equal air entry, bilateral bases diminished HEART: Regular rate and rhythm without , systolic ejection murmur ABDOMEN: Soft, diffuse tenderness, normoactive bowel sounds. No guarding, no rebound. No masses appreciated. Peritoneal dialysis catheter present with dry crusty around the catheter at the insertion site, no purulent drainage noted. EXTREMITIES: Chronic skin changes, lower extremity edema, no clubbing or cyanosis. NEUROLOGICAL: Cranial nerves II through XII grossly intact. No focal deficits. SKIN: Warm, Dry, no rashes noted. Results CBC & Chem 7: 03/30/24 21:04 03/30/24 21:04 Labs: Abnormal Lab Results - Last 24 Hours (Table) 03/30/24 03/30/24 03/31/24 Range/Units 21:04 21:04 02:01 WBC 12.5 H (3.8-10.6) k/uL RBC 3.11 L (4.30-5.90) m/uL Hgb 9.6 L (13.0-17.5) gm/dL Hct 30.3 L (39.0-53.0) % Neutrophils # 11.1 H (1.3-7.7) k/uL Lymphocytes # 0.4 L (1.0-4.8) k/uL Sodium 125 L (137-145) mmol/L Chloride 92 L (98-107) mmol/L BUN 82 H (9-20) mg/dL Creatinine 8.11 H* (0.66-1.25) mg/dL Glucose 196 H (74-99) mg/dL POC Glucose (mg/dL) 182 H (70-110) mg/dL Total Protein 5.0 L (6.3-8.2) g/dL Albumin 2.5 L (3.5-5.0) g/dL 03/31/24 Range/Units 08:15 WBC (3.8-10.6) k/uL RBC (4.30-5.90) m/uL Hgb (13.0-17.5) gm/dL Hct (39.0-53.0) % Neutrophils # (1.3-7.7) k/uL Lymphocytes # (1.0-4.8) k/uL Sodium (137-145) mmol/L Chloride (98-107) mmol/L BUN (9-20) mg/dL Creatinine (0.66-1.25) mg/dL Glucose (74-99) mg/dL POC Glucose (mg/dL) 133 H (70-110) mg/dL Total Protein (6.3-8.2) g/dL Albumin (3.5-5.0) g/dL Assessment and Plan Assessment: Peritonitis,O.P. fluid culture growing Chelsie parapsilosis, on Diflucan outpatient, removal of PD catheter pending Acute on chronic respiratory failure secondary to fluid volume overload related to the above. Patient had been discharged on last admission with oxygen but states has not required it at home. Leukocytosis, mild, not sepsis Hypertension, uncontrolled on admission, resolved Hyponatremia, hypervolemic Generalized weakness and debility in a patient on hospice, currently transitioned off hospice at this time. End-stage renal dialysis on peritoneal dialysis. Diabetes mellitus II Anemia of chronic kidney disease Chronic right foot wound, status post right second toe amputation. Moderate to severe aortic stenosis CAD, history of CABG Hyperlipidemia History of ESBL in peritoneal fluid COVID-19 infection 2020 PAD, history of popliteal bypass, history of right second toe amputation Osteoarthritis Restless leg syndrome Prior nicotine dependence Plan: Continue on current medication regimen ,monitoring and symptomatic treatme nt. Antifungal-Eraxis IV as per infectious disease. Vascular surgery has been consulted for HD PermCath placement to facilitate hemodialysis, per discussion between Dr. Haro, nephrology and patient.General surgery consult in place for removal of PD catheter. PPI in place for GI prophylaxis. Heparin subcu for GI prophylaxis. The impression and plan of care has been dictated as directed. Dr.: I performed a history and examination of this patient, discussed the same with the dictator. I agree with the dictator's note ,documented as a scribe. Any additional findings or plans will be noted.
[2024-03-31] MEDS: PANTOPRAZOLE 40 MG/10 ML VIAL IVP SCH (09:39)
--- NOTE | 2024-03-31 10:22 | P.GSCN ---
History of Present Illness Consult date: 03/31/24 History of present illness: CHIEF COMPLAINT: Removal of peritoneal dialysis catheter HISTORY OF PRESENT ILLNESS: This is a 78-year-old male with end-stage renal disease on peritoneal dialysis catheter. Charting reports that Dr. Haro is requesting removal peritoneal dialysis catheter due to infection. Patient mated to the hospital with peritonitis. He is on antibiotics. Patient had complained of abdominal tenderness. He has been having nausea and vomiting and feeling weak. Patient seen and examined with Dr. Lockhart PAST MEDICAL HISTORY: Coronary Artery Disease (CAD), Diabetes Mellitus, Dialysis, Hypertension, Renal Disease PAST SURGICAL HISTORY: Coronary Bypass/CABG, Heart Catheterization, Joint Replacement MEDICATIONS: See below ALLERGIES: See below SOCIAL HISTORY: No illicit drug use. REVIEW OF SYSTEMS: CONSTITUTIONAL: Denies fever or chills. HEENT: Denies blurred vision, vision changes, or eye pain. Denies hemoptysis CARDIOVASCULAR: Denies chest pain or pressure. RESPIRATORY: No shortness of breath. GASTROINTESTINAL: See HPI for pertinent findings HEMATOLOGIC: Denies bleeding disorders. GENITOURINARY: Denies any blood in urine or increased urinary frequency. SKIN: Denies pruitis. Denies rash. PHYSICAL EXAM: VITAL SIGNS: Reviewed GENERAL: Well-developed in no acute distress. HEENT: No sclera icterus. Extraocular movements grossly intact. Moist buccal mucosa. Head is atraumatic, normocephalic. No nasal drainage. ABDOMEN: Soft. Nondistended. Diffuse tenderness. Peritoneal dialysis catheter in place NEUROLOGIC: Alert and oriented. Cranial nerves II through XII grossly intact. LABORATORY DATA: WBC 12.5 Hgb 9.6 platelets 304 Sodium is 125 potassium is 5.0 creatinine 8.11 IMAGING: ASSESSMENT: 1. Peritonitis associated with peritoneal dialysis PLAN: -Patient scheduled for peritoneal dialysis catheter removal on Wednesday with Dr. Lockhart -Continue antibiotics per infectious disease -Okay to resume renal diet Physician Lift Truck Operator note has been reviewed by physician. Signing provider agrees with the documented findings, assessment, and plan of care. Past Medical History Past Medical History: Coronary Artery Disease (CAD), Diabetes Mellitus, Dialysis, Hypertension, Renal Disease Additional Past Medical History / Comment(s): PERITONEAL DIALYSIS - -4 TIMES DAILY , POOR CIRCULATION IN LOWER LEGS, low sodium, wound to left foot, History of Any Multi-Drug Resistant Organisms: None Reported Year Discovered:: 09/03/21 MDRO Source:: ESBL PERITONEAL FLUID Past Surgical History: Coronary Bypass/CABG, Heart Catheterization, Joint Repla cement Additional Past Surgical History / Comment(s): 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, LEFT TOTAL HIP, BILATERAL CATARACT SURGERY WITH LENS IMPLANT Past Anesthesia/Blood Transfusion Reactions: No Reported Reaction Past Psychological History: Anxiety Smoking Status: Former smoker Past Alcohol Use History: None Reported Additional Past Alcohol Use History / Comment(s): STARTED SMOKING AT AGE 16 QUIT AT AGE 29 SMOKED 1PPD Past Drug Use History: None Reported - Past Family History Mother Family Medical History: Cancer Additional Family Medical History / Comment(s): Heart disease Father History Unknown: Yes Medications and Allergies Home Medications Medication Instructions Recorded Confirmed Type Calcium Acetate [PhosLo] 667 mg PO TID-W/MEALS 09/02/21 03/31/24 History Lactulose [Cephulac] 30 gm PO BID PRN 07/23/23 03/31/24 History rOPINIRole HCL [Requip] 0.25 mg PO BID 07/23/23 03/31/24 History Aspirin EC [Ecotrin Low Dose] 81 mg PO Q2D 02/02/24 03/31/24 History Insulin Glargine [Lantus Vial] 2 - 4 unit SQ DAILY PRN 02/22/24 03/31/24 History ondansetron HCL [Zofran] 8 mg PO Q8H PRN 02/22/24 03/31/24 History Fluconazole [Diflucan] See Taper PO DAILY 03/31/24 03/31/24 History HYDROmorphone [Dilaudid] 2 mg PO Q4H PRN 03/31/24 03/31/24 History Sodium Chloride Tab 1 gm PO DAILY 03/31/24 03/31/24 History amLODIPine 10 mg PO DAILY 03/31/24 03/31/24 History carvediloL [Coreg] 12.5 - 25 mg PO TID PRN 03/31/24 03/31/24 History Allergies Allergy/AdvReac Type Severity Reaction Status Date / Time latex Allergy Swelling, Verified 03/31/24 08:39 SKIN TURNED RED,BURNING, ITCHING hydrocodone [From [place]] AdvReac Hallucinati Verified 03/31/24 08:39 ons/Vomitin g losartan AdvReac Cough Verified 03/31/24 08:39 Surgical - Exam Vital Signs Temp Pulse Resp BP Pulse Ox 97.4 F L 78 18 182/71 98 03/30/24 20:21 03/30/24 20:21 03/30/24 20:21 03/30/24 20:21 03/30/24 20:21 Results - Labs 03/30/24 21:04 03/30/24 21:04 Abnormal Lab Results - Last 24 Hours (Table) 03/30/24 03/30/24 03/31/24 Range/Units 21:04 21:04 02:01 WBC 12.5 H (3.8-10.6) k/uL RBC 3.11 L (4.30-5.90) m/uL Hgb 9.6 L (13.0-17.5) gm/dL Hct 30.3 L (39.0-53.0) % Neutrophils # 11.1 H (1.3-7.7) k/uL Lymphocytes # 0.4 L (1.0-4.8) k/uL Sodium 125 L (137-145) mmol/L Chloride 92 L (98-107) mmol/L BUN 82 H (9-20) mg/dL Creatinine 8.11 H* (0.66-1.25) mg/dL Glucose 196 H (74-99) mg/dL POC Glucose (mg/dL) 182 H (70-110) mg/dL Total Protein 5.0 L (6.3-8.2) g/dL Albumin 2.5 L (3.5-5.0) g/dL 03/31/24 Range/Units 08:15 WBC (3.8-10.6) k/uL RBC (4.30-5.90) m/uL Hgb (13.0-17.5) gm/dL Hct (39.0-53.0) % Neutrophils # (1.3-7.7) k/uL Lymphocytes # (1.0-4.8) k/uL Sodium (137-145) mmol/L Chloride (98-107) mmol/L BUN (9-20) mg/dL Creatinine (0.66-1.25) mg/dL Glucose (74-99) mg/dL POC Glucose (mg/dL) 133 H (70-110) mg/dL Total Protein (6.3-8.2) g/dL Albumin (3.5-5.0) g/dL Diabetes panel 03/30/24 Range/Units 21:04 Sodium 125 L (137-145) mmol/L Potassium 5.0 (3.5-5.1) mmol/L Chloride 92 L (98-107) mmol/L Carbon Dioxide 25 (22-30) mmol/L BUN 82 H (9-20) mg/dL Creatinine 8.11 H* (0.66-1.25) mg/dL Glucose 196 H (74-99) mg/dL Calcium 8.4 (8.4-10.2) mg/dL AST 18 (17-59) U/L ALT 11 (4-49) U/L Alkaline Phosphatase 61 (38-126) U/L Total Protein 5.0 L (6.3-8.2) g/dL Albumin 2.5 L (3.5-5.0) g/dL Calcium panel 03/30/24 Range/Units 21:04 Calcium 8.4 (8.4-10.2) mg/dL Albumin 2.5 L (3.5-5.0) g/dL Pituitary panel 03/30/24 Range/Units 21:04 Sodium 125 L (137-145) mmol/L Potassium 5.0 (3.5-5.1) mmol/L Chloride 92 L (98-107) mmol/L Carbon Dioxide 25 (22-30) mmol/L BUN 82 H (9-20) mg/dL Creatinine 8.11 H* (0.66-1.25) mg/dL Glucose 196 H (74-99) mg/dL Calcium 8.4 (8.4-10.2) mg/dL Adrenal panel 03/30/24 Range/Units 21:04 Sodium 125 L (137-145) mmol/L Potassium 5.0 (3.5-5.1) mmol/L Chloride 92 L (98-107) mmol/L Carbon Dioxide 25 (22-30) mmol/L BUN 82 H (9-20) mg/dL Creatinine 8.11 H* (0.66-1.25) mg/dL Glucose 196 H (74-99) mg/dL Calcium 8.4 (8.4-10.2) mg/dL Total Bilirubin 0.5 (0.2-1.3) mg/dL AST 18 (17-59) U/L ALT 11 (4-49) U/L Alkaline Phosphatase 61 (38-126) U/L Total Protein 5.0 L (6.3-8.2) g/dL Albumin 2.5 L (3.5-5.0) g/dL
--- NOTE | 2024-03-31 10:36 | P.NPCON ---
History of Present Illness - Reason for Consult end stage renal disease - History of Present Illness patient is a 78-year-old male with end-stage renal disease on peritoneal dialysis. Patient has significant peripheral vascular disease with history of recent toe amputation. He had decided to proceed with hospice care on 02/10/24 . Patient however had continued with peritoneal dialysis. Recently he developed peritonitis and was maintained on intraperitoneal antibiotics. The final cultures just came back 2 days ago with Chelsie parapsilosis. Patient has been started on oral Diflucan however his abdominal pain persists and white cell count was elevated at 700 therefore patient was advised to come into the hospital to have the catheter removed. At this time code status has been changed to aggressive medical care and therefore we will switch to hemodialysis. Vascular surgery will be consult it for placement of IJ permacath. Patient is complaining of abdominal pain. No fever noted Poor oral intake. Significant swelling of both legs noted. No significant shortness of breath. Review of Systems as per HPI 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, LEFT TOTAL HIP, BILATERAL CATARACT SURGERY WITH LENS IMPLANT Past Anesthesia/Blood Transfusion Reactions: No Reported Reaction Past Psychological History: Anxiety Smoking Status: Former smoker Past Alcohol Use History: None Reported Additional Past Alcohol Use History / Comment(s): STARTED SMOKING AT AGE 16 QUIT AT AGE 29 SMOKED 1PPD Past Drug Use History: None Reported - Past Family History Mother Family Medical History: Cancer Additional Family Medical History / Comment(s): Heart disease Father History Unknown: Yes Medications and Allergies Home Medications Medication Instructions Recorded Confirmed Type Calcium Acetate [PhosLo] 667 mg PO TID-W/MEALS 09/02/21 03/31/24 History Lactulose [Cephulac] 30 gm PO BID PRN 07/23/23 03/31/24 History rOPINIRole HCL [Requip] 0.25 mg PO BID 07/23/23 03/31/24 History Aspirin EC [Ecotrin Low Dose] 81 mg PO Q2D 02/02/24 03/31/24 History Insulin Glargine [Lantus Vial] 2 - 4 unit SQ DAILY PRN 02/22/24 03/31/24 History ondansetron HCL [Zofran] 8 mg PO Q8H PRN 02/22/24 03/31/24 History Fluconazole [Diflucan] See Taper PO DAILY 03/31/24 03/31/24 History HYDROmorphone [Dilaudid] 2 mg PO Q4H PRN 03/31/24 03/31/24 History Sodium Chloride Tab 1 gm PO DAILY 03/31/24 03/31/24 History amLODIPine 10 mg PO DAILY 03/31/24 03/31/24 History carvediloL [Coreg] 12.5 - 25 mg PO TID PRN 03/31/24 03/31/24 History Allergies Allergy/AdvReac Type Severity Reaction Status Date / Time latex Allergy Swelling, Verified 03/31/24 08:39 SKIN TURNED RED,BURNING, ITCHING hydrocodone [From [place]] AdvReac Hallucinati Verified 03/31/24 08:39 ons/Vomitin g losartan AdvReac Cough Verified 03/31/24 08:39 Physical Exam Vitals: Vital Signs Temp Pulse Resp BP Pulse Ox 03/31/24 07:22 60 22 141/69 94 L 03/31/24 06:00 71 18 110/59 92 L 03/31/24 05:00 98.2 F 72 18 113/49 93 L 03/31/24 03:26 84 20 146/88 93 L 03/31/24 00:49 82 18 149/81 92 L 03/30/24 23:35 97.7 F 81 18 111/50 88 L 03/30/24 20:21 97.4 F L 78 18 182/71 98 Intake and Output 03/30/24 03/31/24 03/31/24 22:59 06:59 14:59 Other: Weight 71.668 kg patient is awake, comfortable, no acute distress. Alert oriented 3. Examination of the heart S1 and S2 Examination of the lungs bilateral breath sounds are heard with decreased breath sounds at the bases Abdomen is soft , mild tenderness. Examination of lower extremity shows edema 3+ bilaterally with chronic skin changes right foot is currently wrapped. Patient is moving all 4 extremities. Results - Lab Results Most recent lab results Calcium 8.4 mg/dL (8.4-10.2) 03/30/24 21:04 03/30/24 21:04 03/30/24 21:04 Assessment and Plan Assessment: 1. End-stage renal disease on peritoneal dialysis. patient had been under hospice care since 02/10/2024 but had decided to continue with peritoneal dialysis. 2. 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 Patient is admitted to have the PD catheter removed. 3. Volume overload 4. Peripheral vascular disease with history of popliteal bypass and right second toe amputation with chronic right open for wound 5. Type 2 diabetes 6. Hypervolemic hyponatremia 7. Coronary artery disease with history of coronary artery bypass surgery 8. Moderate to severe aortic stenosis. Plan: consult surgery for removal of peritoneal dialysis catheter. Consult Dr. Odom for IJ permacath placement to switch to hemodialysis. Patient is agreeable. Antifungal treatment as per ID We will plan for hemodialysis in a.m. Thank you for the consultation. We will continue to follow the patient with you during his hospitalization.
[2024-03-31] MEDS: HEPARIN SODIUM,PORCINE 5,000 UNIT/ML 1 ML VIAL SQ SCH (12:02)
[2024-03-31] MEDS: fentaNYL (PF) 50 MCG/1 ML VIAL IVP ONE ×2 (13:49→13:51)
[2024-03-31] MEDS: LIDOCAINE 1% INJ 10MG/ML (30 ML VIAL-PF) SQ ONE ×2 (13:49→13:51)
--- NOTE | 2024-03-31 14:29 | IR ---
EXAMINATION TYPE: IR cvc insert >=5 years DATE OF EXAM: 03/31/2024 COMPARISON: NONE HISTORY: Fluoroscopy time. Fluoroscopy was provided to the referring clinician.
--- NOTE | 2024-03-31 14:34 | P.GSCN ---
History of Present Illness History of present illness: 78-year-old gentleman well-known to me from the past patient has a history of chronic renal failure patient has a history of peritoneal dialysis which is infected patient came to the emergency room consulted for placement of dialysis catheter. Patient has history of diabetes coronary disease peripheral vascular disease patient had a right IJ catheter placed in the past Patient was seen in the emergency room complaining of abdominal pain neck is supple patient is very short of breath currently flat . Second sound present Abdomen is patient has a peritoneal dialysis catheter infected Plan is placement of a dialysis catheter risk and complication discussed Past Medical History Past Medical History: Coronary Artery Disease (CAD), Diabetes Mellitus, Dialysis, Hypertension, Renal Disease Additional Past Medical History / Comment(s): PERITONEAL DIALYSIS - -4 TIMES DAILY , POOR CIRCULATION IN LOWER LEGS, low sodium, wound to left foot, History of Any Multi-Drug Resistant Organisms: None Reported Year Discovered:: 09/03/21 MDRO Source:: ESBL PERITONEAL FLUID Past Surgical History: Coronary Bypass/CABG, Heart Catheterization, Joint Replacement Additional Past Surgical History / Comment(s): 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, LEFT TOTAL HIP, BILATERAL CATARACT SURGERY WITH LENS IMPLANT Past Anesthesia/Blood Transfusion Reactions: No Reported Reaction Past Psychological History: Anxiety Smoking Status: Former smoker Past Alcohol Use History: None Reported Additional Past Alcohol Use History / Comment(s): STARTED SMOKING AT AGE 16 QUIT AT AGE 29 SMOKED 1PPD Past Drug Use History: None Reported - Past Family History Mother Family Medical History: Cancer Additional Family Medical History / Comment(s): Heart disease Father History Unknown: Yes Medications and Allergies Home Medications Medication Instructions Recorded Confirmed Type Calcium Acetate [PhosLo] 667 mg PO TID-W/MEALS 09/02/21 03/31/24 History Lactulose [Cephulac] 30 gm PO BID PRN 07/23/23 03/31/24 History rOPINIRole HCL [Requip] 0.25 mg PO BID 07/23/23 03/31/24 History Aspirin EC [Ecotrin Low Dose] 81 mg PO Q2D 02/02/24 03/31/24 History Insulin Glargine [Lantus Vial] 2 - 4 unit SQ DAILY PRN 02/22/24 03/31/24 History ondansetron HCL [Zofran] 8 mg PO Q8H PRN 02/22/24 03/31/24 History Fluconazole [Diflucan] See Taper PO DAILY 03/31/24 03/31/24 History HYDROmorphone [Dilaudid] 2 mg PO Q4H PRN 03/31/24 03/31/24 History Sodium Chloride Tab 1 gm PO DAILY 03/31/24 03/31/24 History amLODIPine 10 mg PO DAILY 03/31/24 03/31/24 History carvediloL [Coreg] 12.5 - 25 mg PO TID PRN 03/31/24 03/31/24 History Allergies Allergy/AdvReac Type Severity Reaction Status Date / Time latex Allergy Swelling, Verified 03/31/24 08:39 SKIN TURNED RED,BURNING, ITCHING hydrocodone [From [place]] AdvReac Hallucinati Verified 03/31/24 08:39 ons/Vomitin g losartan AdvReac Cough Verified 03/31/24 08:39 Surgical - Exam Vital Signs Temp Pulse Resp BP Pulse Ox 97.4 F L 78 18 182/71 98 03/30/24 20:21 03/30/24 20:21 03/30/24 20:21 03/30/24 20:21 03/30/24 20:21 Results - Labs 03/30/24 21:04 03/30/24 21:04 Abnormal Lab Results - Last 24 Hours (Table) 03/30/24 03/30/24 03/31/24 Range/Units 21:04 21:04 02:01 WBC 12.5 H (3.8-10.6) k/uL RBC 3.11 L (4.30-5.90) m/uL Hgb 9.6 L (13.0-17.5) gm/dL Hct 30.3 L (39.0-53.0) % Neutrophils # 11.1 H (1.3-7.7) k/uL Lymphocytes # 0.4 L (1.0-4.8) k/uL Sodium 125 L (137-145) mmol/L Chloride 92 L (98-107) mmol/L BUN 82 H (9-20) mg/dL Creatinine 8.11 H* (0.66-1.25) mg/dL Glucose 196 H (74-99) mg/dL POC Glucose (mg/dL) 182 H (70-110) mg/dL Total Protein 5.0 L (6.3-8.2) g/dL Albumin 2.5 L (3.5-5.0) g/dL 03/31/24 Range/Units 08:15 WBC (3.8-10.6) k/uL RBC (4.30-5.90) m/uL Hgb (13.0-17.5) gm/dL Hct (39.0-53.0) % Neutrophils # (1.3-7.7) k/uL Lymphocytes # (1.0-4.8) k/uL Sodium (137-145) mmol/L Chloride (98-107) mmol/L BUN (9-20) mg/dL Creatinine (0.66-1.25) mg/dL Glucose (74-99) mg/dL POC Glucose (mg/dL) 133 H (70-110) mg/dL Total Protein (6.3-8.2) g/dL Albumin (3.5-5.0) g/dL Diabetes panel 03/30/24 Range/Units 21:04 Sodium 125 L (137-145) mmol/L Potassium 5.0 (3.5-5.1) mmol/L Chloride 92 L (98-107) mmol/L Carbon Dioxide 25 (22-30) mmol/L BUN 82 H (9-20) mg/dL Creatinine 8.11 H* (0.66-1.25) mg/dL Glucose 196 H (74-99) mg/dL Calcium 8.4 (8.4-10.2) mg/dL AST 18 (17-59) U/L ALT 11 (4-49) U/L Alkaline Phosphatase 61 (38-126) U/L Total Protein 5.0 L (6.3-8.2) g/dL Albumin 2.5 L (3.5-5.0) g/dL Calcium panel 03/30/24 Range/Units 21:04 Calcium 8.4 (8.4-10.2) mg/dL Albumin 2.5 L (3.5-5.0) g/dL Pituitary panel 03/30/24 Range/Units 21:04 Sodium 125 L (137-145) mmol/L Potassium 5.0 (3.5-5.1) mmol/L Chloride 92 L (98-107) mmol/L Carbon Dioxide 25 (22-30) mmol/L BUN 82 H (9-20) mg/dL Creatinine 8.11 H* (0.66-1.25) mg/dL Glucose 196 H (74-99) mg/dL Calcium 8.4 (8.4-10.2) mg/dL Adrenal panel 03/30/24 Range/Units 21:04 Sodium 125 L (137-145) mmol/L Potassium 5.0 (3.5-5.1) mmol/L Chloride 92 L (98-107) mmol/L Carbon Dioxide 25 (22-30) mmol/L BUN 82 H (9-20) mg/dL Creatinine 8.11 H* (0.66-1.25) mg/dL Glucose 196 H (74-99) mg/dL Calcium 8.4 (8.4-10.2) mg/dL Total Bilirubin 0.5 (0.2-1.3) mg/dL AST 18 (17-59) U/L ALT 11 (4-49) U/L Alkaline Phosphatase 61 (38-126) U/L Total Protein 5.0 L (6.3-8.2) g/dL Albumin 2.5 L (3.5-5.0) g/dL
--- NOTE | 2024-03-31 14:37 | P.PCN ---
Description of Procedure: Preop diagnosis is acute chronic renal failure with infected peritoneal dialysis catheter Postop same. Is #1 inferior venacavogram 2. Placement of a 28 cm dialysis catheter permanent right femoral approach Patient brought to Implementation Lead right groin was prepped and draped applied to sterile manner this patient had a previous catheter placed on the left side ultrasound-guided micropuncture introduced right femoral vein micropuncture guide was passed. Then 4 point dilator advanced over the guidewire. With a hand-injection venacavogram was performed both iliac veins were found to be patent vena cava was found to be patent renal vein was not identified. We created through the tunnel through the tunnel we brought 28 cm dialysis catheter a guidewire was passed and dilators were advanced up the guidewire and sheath was advanced up the guidewire through the sheath we placed a dialysis catheter sheath was removed flushed with heparin saline hep-locked secured with 3-0 nylon patient tarted the procedure well and transferred to the recovery room in satisfied condition
[2024-03-31 14:52] LABS: Glucose,Whole Blood 167 mg/dL (70-110)
[2024-03-31 16:09] LABS: Glucose,Whole Blood 204 mg/dL (70-110)
[2024-03-31] MEDS: ONDANSETRON 4 MG/2 ML VIAL IVP PRN (16:50)
[2024-03-31 17:09] LABS: Glucose,Whole Blood 205 mg/dL (70-110)
[2024-03-31] MEDS ORDERED: DEXTROSE 50% SYRINGE 50 ML IVP PRN ×2 (17:53)
[2024-03-31 20:34] LABS: Glucose,Whole Blood 187 mg/dL (70-110)
--- NOTE | 2024-03-31 22:44 | P.CONS ---
History of Present Illness - Reason for Consult Consult date: 03/31/24 Peritonitis from PD Requesting physician: Evi Fowler - Chief Complaint Abdominal pain x few days - History of Present Illness This is a telehealth visit Patient is a 78-year-old male with a past medical history significant for diabetes mellitus hypertension coronary disease renal failure with on peritoneal dialysis apparently the patient did have a peritoneal dialysis culture positive for Chelsie x 2 and has been treated with oral Diflucan without any improvement as the patient has been sent to the hospital for removal of the dialysis catheter and starting the patient on hemodialysis, patient on presentation to the hospital was afebrile and no fever have recorded subsequently patient was not tachycardic or hypotensive mildly hypoxic on supplemental oxygen patient did have a white count of 12.5 creatinine is 8.11 liver isms are normal patient did receive a dose of Zosyn in the ER infectious disease was consulted for further management of antibiotic therapy patient overall not a very good historian most information has been obtained for the chart talking to nursing staff patient has been started on Eraxis pending evaluation Review of Systems Positive point and negatives has been mentioned in the HPI, complete review of systems was performed and all other systems are negative Past Medical History Past Medical History: Coronary Artery Disease (CAD), Diabetes Mellitus, Dialy sis, Hypertension, Renal Disease Additional Past Medical History / Comment(s): PERITONEAL DIALYSIS - -4 TIMES DAILY , POOR CIRCULATION IN LOWER LEGS, low sodium, wound to left foot, History of Any Multi-Drug Resistant Organisms: None Reported Year Discovered:: 09/03/21 MDRO Source:: ESBL PERITONEAL FLUID Past Surgical History: Coronary Bypass/CABG, Heart Catheterization, Joint Replacement Additional Past Surgical History / Comment(s): 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, LEFT TOTAL HIP, BILATERAL CATARACT SURGERY WITH LENS IMPLANT Past Anesthesia/Blood Transfusion Reactions: No Reported Reaction Past Psychological History: Anxiety Smoking Status: Former smoker Past Alcohol Use History: None Reported Additional Past Alcohol Use History / Comment(s): STARTED SMOKING AT AGE 16 QUIT AT AGE 29 SMOKED 1PPD Past Drug Use History: None Reported - Past Family History Mother Family Medical History: Cancer Additional Family Medical History / Comment(s): Heart disease Father History Unknown: Yes Medications and Allergies Home Medications Medication Instructions Recorded Confirmed Type Calcium Acetate [PhosLo] 667 mg PO TID-W/MEALS 09/02/21 03/31/24 History Lactulose [Cephulac] 30 gm PO BID PRN 07/23/23 03/31/24 History rOPINIRole HCL [Requip] 0.25 mg PO BID 07/23/23 03/31/24 History Aspirin EC [Ecotrin Low Dose] 81 mg PO Q2D 02/02/24 03/31/24 History ondansetron HCL [Zofran] 8 mg PO Q8H PRN 02/22/24 03/31/24 History Sodium Chloride Tab 1 gm PO DAILY 03/31/24 03/31/24 History amLODIPine 10 mg PO DAILY 03/31/24 03/31/24 History Insulin Glargine [Lantus Vial] 4 unit SQ DAILY #0 04/03/24 03/31/24 Rx carvediloL [Coreg] 12.5 mg PO TID #0 04/03/24 03/31/24 Rx Acetaminophen Tab [Tylenol] 650 mg PO Q6H PRN #30 tab 04/04/24 Rx Fluconazole [Diflucan] 400 mg PO DIRECTED #18 tablet 04/04/24 Rx Allergies Allergy/AdvReac Type Severity Reaction Status Date / Time latex Allergy Swelling, Verified 03/31/24 08:39 SKIN TURNED RED,BURNING, ITCHING hydrocodone [From [place]] AdvReac Hallucinati Verified 03/31/24 08:39 ons/Vomitin g losartan AdvReac Cough Verified 03/31/24 08:39 Physical Exam Vitals: Vital Signs Temp Pulse Resp BP Pulse Ox 03/31/24 05:00 98.2 F 72 18 113/49 93 L 03/31/24 03:26 84 20 146/88 93 L 03/31/24 00:49 82 18 149/81 92 L 03/30/24 23:35 97.7 F 81 18 111/50 88 L 03/30/24 20:21 97.4 F L 78 18 182/71 98 Intake and Output 03/30/24 03/30/24 03/31/24 14:59 22:59 06:59 Other: Weight 71.668 kg Elderly male lying in bed in no distress Respiratory system unlabored breathing decreased breath sound the base Heart S1-S2 regular Abdominal soft, mild tenderness Extremities no edema feet Skin no rashes, no masses palpable Patient is awake alert oriented x 3 mood and affect is normal Exam compleetd with help of [employer] Results CBC & Chem 7: 04/02/24 09:58 04/05/24 13:21 Labs: Abnormal Lab Results - Last 24 Hours (Table) 03/30/24 03/30/24 03/31/24 Range/Units 21:04 21:04 02:01 WBC 12.5 H (3.8-10.6) k/uL RBC 3.11 L (4.30-5.90) m/uL Hgb 9.6 L (13.0-17.5) gm/dL Hct 30.3 L (39.0-53.0) % Neutrophils # 11.1 H (1.3-7.7) k/uL Lymphocytes # 0.4 L (1.0-4.8) k/uL Sodium 125 L (137-145) mmol/L Chloride 92 L (98-107) mmol/L BUN 82 H (9-20) mg/dL Creatinine 8.11 H* (0.66-1.25) mg/dL Glucose 196 H (74-99) mg/dL POC Glucose (mg/dL) 182 H (70-110) mg/dL Total Protein 5.0 L (6.3-8.2) g/dL Albumin 2.5 L (3.5-5.0) g/dL Assessment and Plan (1) Peritonitis associated with peritoneal dialysis Status: Acute Code(s): T85.71XA - INFECT/INFLM REACTION DUE TO PERITON DIALYSIS CATHETER, INIT SNOMED Code(s): 526084203 Plan: This is a telehealth visit 1patient with a PD catheter associated peritonitis with outpatient culture positive for Chelsie patient was found to oral Diflucan not being admitted to hospital for removal of the dialysis catheter 2-repeat culture has been requested as well as blood culture 3-patient has been started on Eraxis pending completion of the workup with repeat culture We will follow on clinical condition and cultures to further adjust medication if needed Thank you for this consultation we will follow the patient along with you Dictation was produced using [employer] dictation software. please excuse any grammatical, word or spelling errors. Time with Patient: Greater than 30
[2024-03-31] MEDS: INSULIN ASPART (NovoLOG) 100 UNIT/ML VIAL SQ SCH (22:45)
[2024-04-01 01:53] LABS: Glucose,Whole Blood 165 mg/dL (70-110)
--- NOTE | 2024-04-01 06:58 | P.PN ---
Progress Note - Text Progress Note Date: 04/01/24 CHIEF COMPLAINT: Peritonitis HISTORY OF PRESENT ILLNESS: NAEO PHYSICAL EXAM: VITAL SIGNS: Reviewed. GENERAL: Well-developed in no acute distress. HEENT: No sclera icterus. Extraocular movements grossly intact. Moist buccal mucosa. Head is atraumatic, normocephalic. ABDOMEN: Soft. Distended. TTP diffusely NEUROLOGIC: Alert and oriented. Cranial nerves II through XII grossly intact. ASSESSMENT: 1. Peritonitis with PD Catheter PLAN: -Plan to remove PD Catheter Wednesday -Renal Diet
[2024-04-01 07:17] LABS: Glucose,Whole Blood 138 mg/dL (70-110)
[2024-04-01] MEDS: INSULIN DETEMIR (LEVEMIR) 100 UNIT/ML SYR SQ SCH (08:53)
[2024-04-01] MEDS: amLODIPine 10 MG TAB PO SCH (08:54)
[2024-04-01] MEDS: CALCIUM ACETATE 667 MG TAB PO SCH (08:54)
[2024-04-01] MEDS: SODIUM CHLORIDE TAB 1 GM TAB PO SCH (08:55)
[2024-04-01] MEDS: carvediloL 12.5 MG TAB PO SCH (08:55)
[2024-04-01] MEDS: ASPIRIN 81 MG PO SCH (08:58)
[2024-04-01] MEDS: ANIDULAFUNGIN 100 MG in SODIUM CHLORIDE 0.9% 100 ML IVPB SCH (09:59)
[2024-04-01 10:36] LABS: Basophils # (A) 0.03 X 10*3/uL (0.00-0.10); Basophils % (A) 0.3 %; Eosinophils # (A) 0.17 X 10*3/uL (0.04-0.35); Eosinophils % (A) 1.6 %; HCT 27.6 % (39.6-50.0); HGB 8.7 g/dL (13.0-17.0); Lymphocytes # (A) 0.64 X 10*3/uL (0.90-5.00); Lymphocytes % (A) 5.9 %; MCH 30.4 pg (27.0-32.0); MCHC 31.5 g/dL (32.0-37.0); MCV 96.5 FL (80.0-97.0); Mean Platelet Volume 10.9 FL (9.5-12.2); Monocytes # (A) 0.57 X 10*3/uL (0.20-1.00); Monocytes % (A) 5.2 %; NRBC Per 100 WBC 0 X 10*3/uL (0.00-0.01); Neutrophils # (A) 9.48 X 10*3/uL (1.80-7.70); Neutrophils % (A) 86.5 %; Platelet Count 292 X 10*3/uL (140-440); RBC 2.86 X 10*6/uL (4.40-5.60); RDW 13.8 % (11.5-14.5); WBC 10.94 X 10*3/uL (4.50-10.00)
[2024-04-01 12:12] LABS: Glucose,Whole Blood 151 mg/dL (70-110)
--- NOTE | 2024-04-01 14:16 | P.PN ---
Subjective Progress Note Date: 04/01/24 Principal diagnosis: fungemia peritoneal dialysis catheter Patient was admitted for fungal invasion of the peritoneal dialysis catheter, peritonitis, patient was admitted started on IV antifungals currently being treated by both myself and the nephrology team as well as Dr. Odom, vascular surgery Patient had a temporary hemodialysis access placed in the right groin, is going to have surgical removal of his peritoneal dialysis catheter on Wednesday, patient complains of little pain mostly of fatigue today otherwise doing well dialysis nurse came in during my visit and patient will proceed forward with hemodialysis today Objective - Vital Signs Vital signs: Vital Signs Temp 97.6 F 04/01/24 13:13 Pulse 73 04/01/24 13:13 Resp 20 04/01/24 13:13 BP 155/74 04/01/24 13:13 Pulse Ox 90 L 04/01/24 13:13 FiO2 Intake & Output 03/31/24 04/01/24 04/01/24 18:59 06:59 18:59 Intake Total 240 Balance 240 Weight 71.668 kg Intake: Oral 240 Other: Voiding Method Urinal Urinal # Voids 1 1 - Exam General: [Patient awake, alert and oriented times 3. Patient in no acute distress.] HEENT: [PERRL. EOMI. No pharyngeal erythema or exudate.] Neck: [No adenopathy.] Cardiac: [Heart regular in rate and rhythm. No S3. No S4. No clicks, rubs. No murmur.] Lungs: [Clear to auscultation bilaterally.] Abdomen: [No mass. No organomegaly. Bowel sounds presnt and normoactive in all 4 quadrants. abdominal dialysis catheter minimal erythema, fungal invasion appreciated by Dr. Haro nephrology Extremes: [No edema no cyanosis no claudication normal pulses,current dialysis access right groin is temporary : normal male genitalia Musculoskeletal: [No joint erythema, edema or tenderness.] Skin: [No rash.] Neurologic: [No lateralizing deficits. CN II - XII grossly intact.] Lymphatic: [No adenopathy.] - Labs CBC & Chem 7: 04/01/24 04:23 03/30/24 21:04 Labs: Abnormal Lab Results - Last 24 Hours (Table) 03/31/24 03/31/24 03/31/24 Range/Units 14:49 16:07 17:08 WBC (4.50-10.00) X 10*3/uL RBC (4.40-5.60) X 10*6/uL Hgb (13.0-17.0) g/dL Hct (39.6-50.0) % MCHC (32.0-37.0) g/dL Immature Gran # (0.00-0.04) X 10*3/uL Neutrophils # (1.80-7.70) X 10*3/uL Lymphocytes # (0.90-5.00) X 10*3/uL POC Glucose (mg/dL) 167 H 204 H 205 H (70-110) mg/dL 03/31/24 04/01/24 04/01/24 Range/Units 20:21 01:33 04:23 WBC 10.94 H (4.50-10.00) X 10*3/uL RBC 2.86 L (4.40-5.60) X 10*6/uL Hgb 8.7 L (13.0-17.0) g/dL Hct 27.6 L (39.6-50.0) % MCHC 31.5 L (32.0-37.0) g/dL Immature Gran # 0.05 H (0.00-0.04) X 10*3/uL Neutrophils # 9.48 H (1.80-7.70) X 10*3/uL Lymphocytes # 0.64 L (0.90-5.00) X 10*3/uL POC Glucose (mg/dL) 187 H 165 H (70-110) mg/dL 04/01/24 04/01/24 Range/Units 07:15 12:11 WBC (4.50-10.00) X 10*3/uL RBC (4.40-5.60) X 10*6/uL Hgb (13.0-17.0) g/dL Hct (39.6-50.0) % MCHC (32.0-37.0) g/dL Immature Gran # (0.00-0.04) X 10*3/uL Neutrophils # (1.80-7.70) X 10*3/uL Lymphocytes # (0.90-5.00) X 10*3/uL POC Glucose (mg/dL) 138 H 151 H (70-110) mg/dL Microbiology - Last 24 Hours (Table) 03/30/24 21:04 Blood Culture - Preliminary Blood 03/30/24 21:04 Blood Culture - Preliminary Blood Assessment and Plan (1) Peritonitis associated with peritoneal dialysis Current Visit: Yes Status: Acute Code(s): T85.71XA - INFECT/INFLM REACTION DUE TO PERITON DIALYSIS CATHETER, INIT SNOMED Code(s): 433225736 (2) Abdominal pain Current Visit: No Status: Acute Code(s): R10.9 - UNSPECIFIED ABDOMINAL PAIN SNOMED Code(s): 88837034 (3) Anemia Current Visit: No Status: Acute Code(s): D64.9 - ANEMIA, UNSPECIFIED SNOMED Code(s): 337318392 (4) CAD (coronary artery disease) Current Visit: No Status: Acute Code(s): I25.10 - ATHSCL HEART DISEASE OF [place] CORONARY ARTERY W/O ANG PCTRS SNOMED Code(s): 44842994 (5) Cough Current Visit: No Status: Acute Code(s): R05.9 - COUGH, UNSPECIFIED SNOMED Code(s): 48144896 (6) ESRD (end stage renal disease) Current Visit: No Status: Acute Code(s): N18.6 - END STAGE RENAL DISEASE SNOMED Code(s): 15893312 (7) H/O four vessel coronary artery bypass graft Current Visit: No Status: Acute Code(s): Z95.1 - PRESENCE OF AORTOCORONARY B YPASS GRAFT SNOMED Code(s): 024094383 Plan: patient admitted to the hospital IV antifungals Hemodialysis Surgical consultation with Dr. Romero probable removal of peritoneal dialysis catheter Patient is currently hemodynamically stable we'll follow closely Time with Patient: Greater than 30
[2024-04-01 14:31] LABS: BUN/Creat Ratio 8.79 Ratio (12.00-20.00); Calcium 8.3 mg/dL (8.7-10.3); Carbon Dioxide 21.3 mmol/L (21.6-31.8); Chloride 89 mmol/L (96-109); Glucose 145 mg/dL (70-110); Potassium 5.8 mmol/L (3.5-5.5); Sodium 129 mmol/L (135-145)
--- NOTE | 2024-04-01 16:20 | P.PN ---
Subjective Progress Note Date: 04/01/24 Principal diagnosis: Reason for follow-up is PD catheter associated peritonitis Patient is a 78-year-old male with a past medical history significant for diabetes mellitus hypertension coronary disease renal failure with on peritoneal dialysis apparently the patient did have a peritoneal dialysis culture positive for Chelsie x 2 in the outpatient setting failure to respond to the oral Diflucan has been admitted to hospital for removal of the dialysis catheter and initiation of hemodialysis, patient did have the right femoral dialysis catheter placement by vascular surgery on 03/31/2024. On today's evaluation that is 04/01/2024,the patient denies any fever or any chills, patient is breathing comfortably on 4 L nasal cannula oxygen the patient denies chest pain shortness of breath and no significant cough, patient has been complaining of some abdominal pain no nausea vomiting or diarrhea. Patient white count normalized to 10.94, creatinine 9.9 blood cultures are pending Objective - Vital Signs Vital signs: Vital Signs Temp 97.6 F 04/01/24 13:13 Pulse 73 04/01/24 13:13 Resp 20 04/01/24 13:13 BP 155/74 04/01/24 13:13 Pulse Ox 90 L 04/01/24 13:13 FiO2 Intake & Output 03/31/24 04/01/24 04/01/24 18:59 06:59 18:59 Intake Total 240 Balance 240 Weight 71.668 kg Intake: Oral 240 Other: Voiding Method Urinal Urinal # Voids 1 1 - Exam GENERAL DESCRIPTION: An elderly male lying in bed in no distress RESPIRATORY SYSTEM: Unlabored breathing , decreased breath sounds at bases HEART: S1 S2 regular rate and rhythm , ABDOMEN: Soft , mild tenderness EXTREMITIES: No edema feet - Labs CBC & Chem 7: 04/01/24 04:23 04/01/24 04:23 Labs: Abnormal Lab Results - Last 24 Hours (Table) 03/31/24 03/31/24 04/01/24 Range/Units 17:08 20:21 01:33 WBC (4.50-10.00) X 10*3/uL RBC (4.40-5.60) X 10*6/uL Hgb (13.0-17.0) g/dL Hct (39.6-50.0) % MCHC (32.0-37.0) g/dL Immature Gran # (0.00-0.04) X 10*3/uL Neutrophils # (1.80-7.70) X 10*3/uL Lymphocytes # (0.90-5.00) X 10*3/uL Sodium (135-145) mmol/L Potassium (3.5-5.5) mmol/L Chloride (96-109) mmol/L Carbon Dioxide (21.6-31.8) mmol/L Anion Gap (4.00-12.00) mmol/L BUN (9.0-27.0) mg/dL Creatinine (0.6-1.5) mg/dL Est GFR (CKD-EPI) (>=60) BUN/Creatinine Ratio (12.00-20.00) Ratio Glucose (70-110) mg/dL POC Glucose (mg/dL) 205 H 187 H 165 H (70-110) mg/dL Calcium (8.7-10.3) mg/dL 04/01/24 04/01/24 04/01/24 Range/Units 04:23 04:23 07:15 WBC 10.94 H (4.50-10.00) X 10*3/uL RBC 2.86 L (4.40-5.60) X 10*6/uL Hgb 8.7 L (13.0-17.0) g/dL Hct 27.6 L (39.6-50.0) % MCHC 31.5 L (32.0-37.0) g/dL Immature Gran # 0.05 H (0.00-0.04) X 10*3/uL Neutrophils # 9.48 H (1.80-7.70) X 10*3/uL Lymphocytes # 0.64 L (0.90-5.00) X 10*3/uL Sodium 129 L (135-145) mmol/L Potassium 5.8 H (3.5-5.5) mmol/L Chloride 89 L (96-109) mmol/L Carbon Dioxide 21.3 L (21.6-31.8) mmol/L Anion Gap 18.70 H (4.00-12.00) mmol/L BUN 87.0 H (9.0-27.0) mg/dL Creatinine 9.9 A* (0.6-1.5) mg/dL Est GFR (CKD-EPI) 5 L (>=60) BUN/Creatinine Ratio 8.79 L (12.00-20.00) Ratio Glucose 145 H (70-110) mg/dL POC Glucose (mg/dL) 138 H (70-110) mg/dL Calcium 8.3 L (8.7-10.3) mg/dL 04/01/24 Range/Units 12:11 WBC (4.50-10.00) X 10*3/uL RBC (4.40-5.60) X 10*6/uL Hgb (13.0-17.0) g/dL Hct (39.6-50.0) % MCHC (32.0-37.0) g/dL Immature Gran # (0.00-0.04) X 10*3/uL Neutrophils # (1.80-7.70) X 10*3/uL Lymphocytes # (0.90-5.00) X 10*3/uL Sodium (135-145) mmol/L Potassium (3.5-5.5) mmol/L Chloride (96-109) mmol/L Carbon Dioxide (21.6-31.8) mmol/L Anion Gap (4.00-12.00) mmol/L BUN (9.0-27.0) mg/dL Creatinine (0.6-1.5) mg/dL Est GFR (CKD-EPI) (>=60) BUN/Creatinine Ratio (12.00-20.00) Ratio Glucose (70-110) mg/dL POC Glucose (mg/dL) 151 H (70-110) mg/dL Calcium (8.7-10.3) mg/dL Microbiology - Last 24 Hours (Table) 03/30/24 21:04 Blood Culture - Preliminary Blood 03/30/24 21:04 Blood Culture - Preliminary Blood Assessment and Plan (1) Peritonitis associated with peritoneal dialysis Current Visit: Yes Status: Acute Code(s): T85.71XA - INFECT/INFLM REACTION DUE TO PERITON DIALYSIS CATHETER, INIT SNOMED Code(s): 798083397 Plan: Patient with PD catheter associated peritonitis with outpatient culture posit rob for Chelsie patient was found to oral Diflucan not being admitted to hospital for removal of the dialysis catheter 2-blood cultures currently pending white count trending down 3-patient to continue with Eraxis awaiting removal of the infected catheter at the bedside questions answered Dictation was produced using [employer] software. please excuse any grammatical, word or spelling errors. Time with Patient: Less than 30
[2024-04-01 17:15] LABS: Glucose,Whole Blood 119 mg/dL (70-110)
--- NOTE | 2024-04-01 19:55 | P.PN ---
Subjective Progress Note Date: 04/01/24 Patient seen for follow-up on ESRD on peritoneal dialysis. Switched to hemodialysis right IJ permcath placed 03/31. Seen while on HD, no complaints. patient is awake, comfortable, no acute distress. Alert oriented 3. Examination of the heart S1 and S2 Examination of the lungs bilateral breath sounds are heard with decreased breath sounds at the bases Abdomen is soft , mild tenderness. Examination of lower extremity shows edema 3+ bilaterally with chronic skin changes right foot is currently wrapped. Patient is moving all 4 extremities. Objective - Vital Signs Vital signs: Vital Signs Temp 97.6 F 04/01/24 13:13 Pulse 73 04/01/24 13:13 Resp 20 04/01/24 13:13 BP 155/74 04/01/24 13:13 Pulse Ox 90 L 04/01/24 13:13 FiO2 Intake & Output 03/31/24 04/01/24 04/01/24 18:59 06:59 18:59 Intake Total 240 Balance 240 Weight 71.668 kg Intake: Oral 240 Other: Voiding Method Urinal Urinal # Voids 1 1 - Labs CBC & Chem 7: 04/01/24 04:23 04/01/24 04:23 Labs: Abnormal Lab Results - Last 24 Hours (Table) 03/31/24 03/31/24 03/31/24 Range/Units 14:49 16:07 17:08 WBC (4.50-10.00) X 10*3/uL RBC (4.40-5.60) X 10*6/uL Hgb (13.0-17.0) g/dL Hct (39.6-50.0) % MCHC (32.0-37.0) g/dL Immature Gran # (0.00-0.04) X 10*3/uL Neutrophils # (1.80-7.70) X 10*3/uL Lymphocytes # (0.90-5.00) X 10*3/uL POC Glucose (mg/dL) 167 H 204 H 205 H (70-110) mg/dL 03/31/24 04/01/24 04/01/24 Range/Units 20:21 01:33 04:23 WBC 10.94 H (4.50-10.00) X 10*3/uL RBC 2.86 L (4.40-5.60) X 10*6/uL Hgb 8.7 L (13.0-17.0) g/dL Hct 27.6 L (39.6-50.0) % MCHC 31.5 L (32.0-37.0) g/dL Immature Gran # 0.05 H (0.00-0.04) X 10*3/uL Neutrophils # 9.48 H (1.80-7.70) X 10*3/uL Lymphocytes # 0.64 L (0.90-5.00) X 10*3/uL POC Glucose (mg/dL) 187 H 165 H (70-110) mg/dL 04/01/24 04/01/24 Range/Units 07:15 12:11 WBC (4.50-10.00) X 10*3/uL RBC (4.40-5.60) X 10*6/uL Hgb (13.0-17.0) g/dL Hct (39.6-50.0) % MCHC (32.0-37.0) g/dL Immature Gran # (0.00-0.04) X 10*3/uL Neutrophils # (1.80-7.70) X 10*3/uL Lymphocytes # (0.90-5.00) X 10*3/uL POC Glucose (mg/dL) 138 H 151 H (70-110) mg/dL Microbiology - Last 24 Hours (Table) 03/30/24 21:04 Blood Culture - Preliminary Blood 03/30/24 21:04 Blood Culture - Preliminary Blood Assessment and Plan Assessment: 1. End-stage renal disease on peritoneal dialysis. patient had been under hospice care since 02/10/2024 but had decided to continue with peritoneal dialysis. Permcath placed 03/31 2. 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 Patient is admitted to have the PD catheter removed. 3. Volume overload 4. Peripheral vascular disease with history of popliteal bypass and right second toe amputation with chronic right open for wound 5. Type 2 diabetes 6. Hypervolemic hyponatremia 7. Coronary artery disease with history of coronary artery bypass surgery 8. Moderate to severe aortic stenosis. Plan: Consult surgery for removal of peritoneal dialysis catheter. Plan for removal Wednesday. Antifungal treatment as per ID HD today then again Wednesday.
[2024-04-01 20:32] LABS: Glucose,Whole Blood 132 mg/dL (70-110)
[2024-04-02 06:50] LABS: Glucose,Whole Blood 134 mg/dL (70-110)
[2024-04-02] MEDS: ONDANSETRON 4 MG TAB PO PRN (08:08)
[2024-04-02 10:26] LABS: Basophils % (A) 0 %; Eosinophils # (A) 0.2 k/uL (0-0.7); Eosinophils % (A) 2 %; HCT 26.4 % (39.0-53.0); HGB 8.2 gm/dL (13.0-17.5); Hypochromasia Slight; Lymphocytes # (A) 0.5 k/uL (1.0-4.8); Lymphocytes % (A) 7 %; MCH 31.4 pg (25.0-35.0); MCHC 31.2 g/dL (31.0-37.0); MCV 100.6 fL (80.0-100.0); Macrocytosis Slight; Mean Platelet Volume 8.8; Monocytes # (A) 0.4 k/uL (0-1.0); Monocytes % (A) 5 %; Neutrophils # (A) 6.5 k/uL (1.3-7.7); Neutrophils % (A) 85 %; Platelet Count 238 k/uL (150-450); RBC 2.63 m/uL (4.30-5.90); RDW 13.9 % (11.5-15.5); WBC 7.6 k/uL (3.8-10.6)
[2024-04-02 10:27] LABS: Hepatitis B Surface Antigen Nonreactive (Nonreactive)
[2024-04-02 10:42] LABS: African American GFR (CKD) 8 (>60 ml/min/1.73 sqM); Anion Gap 5 mmol/L; Blood Urea Nitrogen 61 mg/dL (9-20); Calcium 7.9 mg/dL (8.4-10.2); Carbon Dioxide 26 mmol/L (22-30); Chloride 97 mmol/L (98-107); Glucose 130 mg/dL (74-99); Non-African American GFR(CKD) 7 (>60 ml/min/1.73 sqM); Potassium 5.2 mmol/L (3.5-5.1); Sodium 128 mmol/L (137-145)
[2024-04-02 12:05] LABS: Glucose,Whole Blood 142 mg/dL (70-110)
--- NOTE | 2024-04-02 12:35 | P.PN ---
Subjective Progress Note Date: 04/02/24 Patient seen for follow-up on ESRD on peritoneal dialysis. Switched to hemodialysis right IJ permcath placed 03/31. Tolerated HD yesterday without issue. patient is awake, comfortable, no acute distress. Alert oriented 3. Examination of the heart S1 and S2 Examination of the lungs bilateral breath sounds are heard with decreased breath sounds at the bases Abdomen is soft , mild tenderness. Examination of lower extremity shows edema 3+ bilaterally with chronic skin changes right foot is currently wrapped. Patient is moving all 4 extremities. Objective - Vital Signs Vital signs: Vital Signs Temp 97.6 F 04/02/24 06:50 Pulse 74 04/02/24 09:30 Resp 18 04/02/24 09:30 BP 144/65 04/02/24 06:50 Pulse Ox 95 04/02/24 06:50 FiO2 Intake & Output 04/01/24 04/02/24 04/02/24 18:59 06:59 18:59 Intake Total 160 400 Output Total 2400 Balance 160 -2000 Intake: Oral 160 Hemodialysis 400 Output: Hemodialysis 2400 Other: Voiding Method Urinal Urinal Urinal # Voids 0 0 - Labs CBC & Chem 7: 04/02/24 09:58 04/02/24 09:58 Labs: Abnormal Lab Results - Last 24 Hours (Table) 04/01/24 04/01/24 04/01/24 Range/Units 04:23 04:23 04:26 RBC (4.30-5.90) m/uL Hgb (13.0-17.5) gm/dL Hct (39.0-53.0) % MCV (80.0-100.0) fL Lymphocytes # (1.0-4.8) k/uL Sodium 129 L (135-145) mmol/L Potassium 5.8 H (3.5-5.5) mmol/L Chloride 89 L (96-109) mmol/L Carbon Dioxide 21.3 L (21.6-31.8) mmol/L Anion Gap 18.70 H (4.00-12.00) mmol/L BUN 87.0 H (9.0-27.0) mg/dL Creatinine 9.9 A* (0.6-1.5) mg/dL Est GFR (CKD-EPI) 5 L (>=60) BUN/Creatinine Ratio 8.79 L (12.00-20.00) Ratio Glucose 145 H (70-110) mg/dL POC Glucose (mg/dL) (70-110) mg/dL Hemoglobin A1c 7.3 H (<=6.0) % Calcium 8.3 L (8.7-10.3) mg/dL Hep Bs Antibody A (Negative) 04/01/24 04/01/24 04/01/24 Range/Units 12:11 17:13 20:30 RBC (4.30-5.90) m/uL Hgb (13.0-17.5) gm/dL Hct (39.0-53.0) % MCV (80.0-100.0) fL Lymphocytes # (1.0-4.8) k/uL Sodium (135-145) mmol/L Potassium (3.5-5.5) mmol/L Chloride (96-109) mmol/L Carbon Dioxide (21.6-31.8) mmol/L Anion Gap (4.00-12.00) mmol/L BUN (9.0-27.0) mg/dL Creatinine (0.6-1.5) mg/dL Est GFR (CKD-EPI) (>=60) BUN/Creatinine Ratio (12.00-20.00) Ratio Glucose (70-110) mg/dL POC Glucose (mg/dL) 151 H 119 H 132 H (70-110) mg/dL Hemoglobin A1c (<=6.0) % Calcium (8.7-10.3) mg/dL Hep Bs Antibody (Negative) 04/02/24 04/02/24 Range/Units 06:48 09:58 RBC 2.63 L (4.30-5.90) m/uL Hgb 8.2 L (13.0-17.5) gm/dL Hct 26.4 L (39.0-53.0) % MCV 100.6 H (80.0-100.0) fL Lymphocytes # 0.5 L (1.0-4.8) k/uL Sodium (135-145) mmol/L Potassium (3.5-5.5) mmol/L Chloride (96-109) mmol/L Carbon Dioxide (21.6-31.8) mmol/L Anion Gap (4.00-12.00) mmol/L BUN (9.0-27.0) mg/dL Creatinine (0.6-1.5) mg/dL Est GFR (CKD-EPI) (>=60) BUN/Creatinine Ratio (12.00-20.00) Ratio Glucose (70-110) mg/dL POC Glucose (mg/dL) 134 H (70-110) mg/dL Hemoglobin A1c (<=6.0) % Calcium (8.7-10.3) mg/dL Hep Bs Antibody (Negative) Microbiology - Last 24 Hours (Table) 03/30/24 21:04 Blood Culture - Preliminary Blood 03/30/24 21:04 Blood Culture - Preliminary Blood Assessment and Plan Assessment: 1. End-stage renal disease on peritoneal dialysis. patient had been under hospice care since 02/10/2024 but had decided to continue with peritoneal dialysis. Permcath placed 03/31 2. 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 Patient is admitted to have the PD catheter removed. 3. Volume overload 4. Peripheral vascular disease with history of popliteal bypass and right second toe amputation with chronic right open for wound 5. Type 2 diabetes 6. Hypervolemic hyponatremia 7. Coronary artery disease with history of coronary artery bypass surgery 8. Moderate to severe aortic stenosis. Plan: Consult surgery for removal of peritoneal dialysis catheter. Plan for removal Wednesday. Antifungal treatment as per ID HD today then again Wednesday. Will need HD chair time arranged by social work.
--- NOTE | 2024-04-02 14:18 | P.PN ---
Subjective Progress Note Date: 04/02/24 Principal diagnosis: Reason for follow-up is PD catheter associated peritonitis Patient is a 78-year-old male with a past medical history significant for diabetes mellitus hypertension coronary disease renal failure with on peritoneal dialysis apparently the patient did have a peritoneal dialysis culture positive for Chelsie x 2 in the outpatient setting failure to respond to the oral Diflucan has been admitted to hospital for removal of the dialysis catheter and initiation of hemodialysis, patient did have the right femoral dialysis catheter placement by vascular surgery on 03/31/2024. On today's evaluation that is 04/02/2024,the patient remains to be afebrile, patient is on 4 L nasal cannula supplemental oxygen and denies any shortness of breath no chest pain or cough.Patient denies having any nausea or vomiting, still complaining of some abdominal pain and no diarrhea has been reported. Patient white count 7.6, creatinine 7.20 blood culture currently pending Objective - Vital Signs Vital signs: Vital Signs Temp 97.6 F 04/02/24 13:00 Pulse 61 04/02/24 13:00 Resp 19 04/02/24 13:00 BP 125/62 04/02/24 13:00 Pulse Ox 93 L 04/02/24 13:00 FiO2 Intake & Output 04/01/24 04/02/24 04/02/24 18:59 06:59 18:59 Intake Total 160 400 Output Total 2400 Balance 160 -2000 Intake: Oral 160 Hemodialysis 400 Output: Hemodialysis 2400 Other: Voiding Method Urinal Urinal Urinal # Voids 0 0 - Exam GENERAL DESCRIPTION: An elderly male lying in bed in no distress RESPIRATORY SYSTEM: Unlabored breathing , decreased breath sounds at bases HEART: S1 S2 regular rate and rhythm , ABDOMEN: Soft , mild tenderness EXTREMITIES: No edema feet - Labs CBC & Chem 7: 04/02/24 09:58 04/02/24 09:58 Labs: Abnormal Lab Results - Last 24 Hours (Table) 04/01/24 04/01/24 04/01/24 Range/Units 04:23 04:23 04:26 RBC (4.30-5.90) m/uL Hgb (13.0-17.5) gm/dL Hct (39.0-53.0) % MCV (80.0-100.0) fL Lymphocytes # (1.0-4.8) k/uL Sodium 129 L (135-145) mmol/L Potassium 5.8 H (3.5-5.5) mmol/L Chloride 89 L (96-109) mmol/L Carbon Dioxide 21.3 L (21.6-31.8) mmol/L Anion Gap 18.70 H (4.00-12.00) mmol/L BUN 87.0 H (9.0-27.0) mg/dL Creatinine 9.9 A* (0.6-1.5) mg/dL Est GFR (CKD-EPI) 5 L (>=60) BUN/Creatinine Ratio 8.79 L (12.00-20.00) Ratio Glucose 145 H (70-110) mg/dL POC Glucose (mg/dL) (70-110) mg/dL Hemoglobin A1c 7.3 H (<=6.0) % Calcium 8.3 L (8.7-10.3) mg/dL Hep Bs Antibody A (Negative) 04/01/24 04/01/24 04/02/24 Range/Units 17:13 20:30 06:48 RBC (4.30-5.90) m/uL Hgb (13.0-17.5) gm/dL Hct (39.0-53.0) % MCV (80.0-100.0) fL Lymphocytes # (1.0-4.8) k/uL Sodium (135-145) mmol/L Potassium (3.5-5.5) mmol/L Chloride (96-109) mmol/L Carbon Dioxide (21.6-31.8) mmol/L Anion Gap (4.00-12.00) mmol/L BUN (9.0-27.0) mg/dL Creatinine (0.6-1.5) mg/dL Est GFR (CKD-EPI) (>=60) BUN/Creatinine Ratio (12.00-20.00) Ratio Glucose (70-110) mg/dL POC Glucose (mg/dL) 119 H 132 H 134 H (70-110) mg/dL Hemoglobin A1c (<=6.0) % Calcium (8.7-10.3) mg/dL Hep Bs Antibody (Negative) 04/02/24 04/02/24 04/02/24 Range/Units 09:58 09:58 12:04 RBC 2.63 L (4.30-5.90) m/uL Hgb 8.2 L (13.0-17.5) gm/dL Hct 26.4 L (39.0-53.0) % MCV 100.6 H (80.0-100.0) fL Lymphocytes # 0.5 L (1.0-4.8) k/uL Sodium 128 L (135-145) mmol/L Potassium 5.2 H (3.5-5.5) mmol/L Chloride 97 L (96-109) mmol/L Carbon Dioxide (21.6-31.8) mmol/L Anion Gap (4.00-12.00) mmol/L BUN 61 H (9.0-27.0) mg/dL Creatinine 7.20 H* (0.6-1.5) mg/dL Est GFR (CKD-EPI) (>=60) BUN/Creatinine Ratio (12.00-20.00) Ratio Glucose 130 H (70-110) mg/dL POC Glucose (mg/dL) 142 H (70-110) mg/dL Hemoglobin A1c (<=6.0) % Calcium 7.9 L (8.7-10.3) mg/dL Hep Bs Antibody (Negative) Microbiology - Last 24 Hours (Table) 03/30/24 21:04 Blood Culture - Preliminary Blood 03/30/24 21:04 Blood Culture - Preliminary Blood Assessment and Plan (1) Peritonitis associated with peritoneal dialysis Current Visit: Yes Status: Acute Code(s): T85.71XA - INFECT/INFLM REACTION DUE TO PERITON DIALYSIS CATHETER, INIT SNOMED Code(s): 592113466 Plan: Patient with PD catheter associated peritonitis with outpatient culture positive for Chelsie patient was found to oral Diflucan not being admitted to hospital for removal of the dialysis catheter 2-blood cultures currently pending white count has normalized 3-patient to continue with Eraxis currently waiting for removal of the infected catheter Dictation was produced using [email or web address] software. please excuse any grammatical, word or spelling errors. Time with Patient: Less than 30
--- NOTE | 2024-04-02 15:49 | P.PN ---
Subjective Progress Note Date: 04/02/24 CHIEF COMPLAINT: Peritoneal dialysis catheter infection HISTORY OF PRESENT ILLNESS: The patient is a 78-year-old male with end-stage renal disease and has a peritoneal dialysis catheter present for over 2+ years. is at bedside. No moderate abdominal pain. He is tolerating diet. No recent fevers or chills. ROS: No reports of nausea and vomiting. No fevers or chills. No new chest pain. No productive sputum PHYSICAL EXAM: VITAL SIGNS: Reviewed CONSTITUTIONAL: Well developed and in no acute distress. EYES: Conjuctivae without sclera icterus. Extraocular movements grossly intact. HEAD, EARS, NOSE, THROAT: Moist buccal mucosa. Head is atraumatic, normocephalic. Hears conversational speech. No nasal drainage. RESPIRATORY: Non-labored respirations and equal bilateral excursions. CARDIOVASCULAR: Palpable 2+ radial pulses. ABDOMEN: Peritoneal dialysis catheter present. MUSCULOSKELETAL: No gross deformity of the lower extremities noted. No clubbing. No cyanosis. SKIN: Good skin turgor. Well perfused. NEUROLOGIC: Cranial nerves II through XII grossly intact. No focal or lateralizing signs. PSYCH: Appropriate affect. CLINICAL LABS: Reviewed. WBC within normal limits. ASSESSMENT: 1. Peritoneal dialysis catheter infection 2. End-stage renal disease peritoneal dialysis dependent PLAN: 1. Removal of peritoneal dialysis catheter for peritonitis 2. IV antibiotics per infectious disease. 3. N.p.o. after midnight Objective - Vital Signs Vital signs: Vital Signs Temp 97.6 F 04/02/24 13:00 Pulse 61 04/02/24 13:00 Resp 19 04/02/24 13:00 BP 125/62 04/02/24 13:00 Pulse Ox 93 L 04/02/24 13:00 FiO2 Intake & Output 04/01/24 04/02/24 04/02/24 18:59 06:59 18:59 Intake Total 160 400 Output Total 2400 Balance 160 -2000 Intake: Oral 160 Hemodialysis 400 Output: Hemodialysis 2400 Other: Voiding Method Urinal Urinal Urinal # Voids 0 0 - Labs CBC & Chem 7: 04/02/24 09:58 04/02/24 09:58 Labs: Abnormal Lab Results - Last 24 Hours (Table) 04/01/24 04/01/24 04/01/24 Range/Units 04:23 04:26 17:13 RBC (4.30-5.90) m/uL Hgb (13.0-17.5) gm/dL Hct (39.0-53.0) % MCV (80.0-100.0) fL Lymphocytes # (1.0-4.8) k/uL Sodium (137-145) mmol/L Potassium (3.5-5.1) mmol/L Chloride (98-107) mmol/L BUN (9-20) mg/dL Creatinine (0.66-1.25) mg/dL Glucose (74-99) mg/dL POC Glucose (mg/dL) 119 H (70-110) mg/dL Hemoglobin A1c 7.3 H (<=6.0) % Calcium (8.4-10.2) mg/dL Hep Bs Antibody A (Negative) 04/01/24 04/02/24 04/02/24 Range/Units 20:30 06:48 09:58 RBC 2.63 L (4.30-5.90) m/uL Hgb 8.2 L (13.0-17.5) gm/dL Hct 26.4 L (39.0-53.0) % MCV 100.6 H (80.0-100.0) fL Lymphocytes # 0.5 L (1.0-4.8) k/uL Sodium (137-145) mmol/L Potassium (3.5-5.1) mmol/L Chloride (98-107) mmol/L BUN (9-20) mg/dL Creatinine (0.66-1.25) mg/dL Glucose (74-99) mg/dL POC Glucose (mg/dL) 132 H 134 H (70-110) mg/dL Hemoglobin A1c (<=6.0) % Calcium (8.4-10.2) mg/dL Hep Bs Antibody (Negative) 04/02/24 04/02/24 Range/Units 09:58 12:04 RBC (4.30-5.90) m/uL Hgb (13.0-17.5) gm/dL Hct (39.0-53.0) % MCV (80.0-100.0) fL Lymphocytes # (1.0-4.8) k/uL Sodium 128 L (137-145) mmol/L Potassium 5.2 H (3.5-5.1) mmol/L Chloride 97 L (98-107) mmol/L BUN 61 H (9-20) mg/dL Creatinine 7.20 H* (0.66-1.25) mg/dL Glucose 130 H (74-99) mg/dL POC Glucose (mg/dL) 142 H (70-110) mg/dL Hemoglobin A1c (<=6.0) % Calcium 7.9 L (8.4-10.2) mg/dL Hep Bs Antibody (Negative) Microbiology - Last 24 Hours (Table) 03/30/24 21:04 Blood Culture - Preliminary Blood 03/30/24 21:04 Blood Culture - Preliminary Blood
[2024-04-02 17:38] LABS: Glucose,Whole Blood 183 mg/dL (70-110)
[2024-04-02 20:34] LABS: Glucose,Whole Blood 147 mg/dL (70-110)
--- NOTE | 2024-04-03 08:25 | P.PN ---
Subjective Patient is seen in follow-up for end-stage renal disease. He is now maintained on hemodialysis via right femoral dialysis catheter. PD catheter to be removed today. No active complaints. Vital signs are stable. General: No acute distress. HEENT: Head exam is unremarkable. LUNGS: No audible rhonchi or wheezes. HEART: Rate and Rhythm are regular. ABDOMEN: Nontender. EXTREMITITES: 1+ edema. No drainage. Objective - Vital Signs Vital signs: Vital Signs Temp 97.5 F L 04/03/24 01:34 Pulse 66 04/03/24 01:34 Resp 17 04/03/24 01:34 BP 117/50 04/03/24 01:34 Pulse Ox 97 04/03/24 01:34 FiO2 Intake & Output 04/02/24 04/03/24 04/03/24 18:59 06:59 18:59 Intake Total 120 Balance 120 Intake: Oral 120 Other: Voiding Method Urinal Urinal # Voids 0 0 # Bowel Movements 1 - Labs CBC & Chem 7: 04/02/24 09:58 04/02/24 09:58 Labs: Abnormal Lab Results - Last 24 Hours (Table) 04/01/24 04/01/24 04/02/24 Range/Units 04:23 04:26 09:58 RBC 2.63 L (4.30-5.90) m/uL Hgb 8.2 L (13.0-17.5) gm/dL Hct 26.4 L (39.0-53.0) % MCV 100.6 H (80.0-100.0) fL Lymphocytes # 0.5 L (1.0-4.8) k/uL Sodium (137-145) mmol/L Potassium (3.5-5.1) mmol/L Chloride (98-107) mmol/L BUN (9-20) mg/dL Creatinine (0.66-1.25) mg/dL Glucose (74-99) mg/dL POC Glucose (mg/dL) (70-110) mg/dL Hemoglobin A1c 7.3 H (<=6.0) % Calcium (8.4-10.2) mg/dL Hep Bs Antibody A (Negative) 04/02/24 04/02/24 04/02/24 Range/Units 09:58 12:04 17:36 RBC (4.30-5.90) m/uL Hgb (13.0-17.5) gm/dL Hct (39.0-53.0) % MCV (80.0-100.0) fL Lymphocytes # (1.0-4.8) k/uL Sodium 128 L (137-145) mmol/L Potassium 5.2 H (3.5-5.1) mmol/L Chloride 97 L (98-107) mmol/L BUN 61 H (9-20) mg/dL Creatinine 7.20 H* (0.66-1.25) mg/dL Glucose 130 H (74-99) mg/dL POC Glucose (mg/dL) 142 H 183 H (70-110) mg/dL Hemoglobin A1c (<=6.0) % Calcium 7.9 L (8.4-10.2) mg/dL Hep Bs Antibody (Negative) 04/02/24 Range/Units 20:29 RBC (4.30-5.90) m/uL Hgb (13.0-17.5) gm/dL Hct (39.0-53.0) % MCV (80.0-100.0) fL Lymphocytes # (1.0-4.8) k/uL Sodium (137-145) mmol/L Potassium (3.5-5.1) mmol/L Chloride (98-107) mmol/L BUN (9-20) mg/dL Creatinine (0.66-1.25) mg/dL Glucose (74-99) mg/dL POC Glucose (mg/dL) 147 H (70-110) mg/dL Hemoglobin A1c (<=6.0) % Calcium (8.4-10.2) mg/dL Hep Bs Antibody (Negative) Microbiology - Last 24 Hours (Table) 03/30/24 21:04 Blood Culture - Preliminary Blood 03/30/24 21:04 Blood Culture - Preliminary Blood Assessment and Plan Plan: Assessment: 1. End-stage renal disease maintained on hemodialysis. 2. 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 ID following. PD catheter to be removed today. 3. Hypertension with chronic kidney disease. 4. Chronic kidney disease mineral bone disease maintained on PhosLo. 5. Diabetes mellitus. 6. Chronic hyponatremia maintained on sodium chloride tab. 7. Anemia of chronic kidney disease. 8. Coronary artery disease status post CABG. 9. Peripheral vascular disease. Plan: Hemodialysis today. PD catheter to be removed today. Add Aranesp. Outpatient hemodialysis to be set up by case management.
[2024-04-03 08:47] LABS: Glucose,Whole Blood 171 mg/dL (70-110)
--- NOTE | 2024-04-03 11:23 | CDI ---
Documentation Clarification Form Date: 04/03/2024 11:13:18 AM From: Yaz Hernandez RN CCDS Phone: [phone] Admit Date: 03/31/2024 04:30:00 AM Patient Name: Ferdinand Renner Visit Number: [id number] Discharge Date: ATTENTION: The Clinical Documentation Specialists (CDI) and [facility] Coding Staff appreciate your assistance in clarifying documentation. Please respond to the clarification below the line at the bottom and electronically sign. The CDI & [facility] Coding staff will review the response and follow-up if needed. Please note: Queries are made part of the Legal Health Record. If you have any questions, please contact the author of this message via ITS. Dr. Astrid Awad, [employer] A Coccyx stage 1 pressure ulcer is documented by Nursing 03/31, Wound assessment. Based on this information and the findings below, is there an additional diagnosis that is clinically appropriate for this patient? History/Risk Factors: 78 year old male sent into the ED by Nephrology for removal of peritoneal dialysis catheter related to infection. CAD, DM, ESRD, Dialysis and was on hospice. 03/31, HP. Clinical Indicators: Location: Coccyx Wound description: Keyla wound maceration, moist and erythema Treatment: Absorbant underpad check hourly, Off load Q2H Is there an additional diagnosis that is clinically appropriate for this patient? [ ] Coccyx Pressure Ulcer Stage 1 [ ] Other condition, please specify [ ] Unable to determine Clinical Definitions: Stage 1 Pressure Ulcer: intact skin, non-blanching redness of local area Stage 2 Pressure Ulcer: Partial thickness, loss of dermis, pink wound bed Stage 3 Pressure Ulcer: Full thickness tissue loss Stage 4 Pressure Ulcer: Full thickness tissue loss with exposed bone, tendon, or muscle. Unstageable pressure ulcer: Full thickness tissue loss in which the base of the ulcer is covered by slough (yellow, norman, garcia, green or brown) and/or eschar (norman, brown or black) in the wound bed. Documented in the DCS by Ibrahima Awad NP, 04/03: Coccyx pressure ulcer stage 1 (Template Last Revised: December 2020) MTDD
[2024-04-03 12:26] LABS: Glucose,Whole Blood 168 mg/dL (70-110)
--- NOTE | 2024-04-03 12:58 | P.DS ---
Providers Date of admission: 03/31/24 04:30 Expected date of discharge: 04/03/24 Attending physician: Jerry Jara Consults: 03/31/24 01:58 Consult Physician Routine Consulting Provider: Demarcus Lockhart Consult Reason/Comments: ?peritonitis, remove PD cath Do you want consulting provider notified?: Yes, Notify in am Consult Physician Routine Consulting Provider: Monse Haro Consult Reason/Comments: peritonitis, remove PD cath Do you want consulting provider notified?: Yes, Notify in am 03/31/24 02:01 Consult Physician Routine Consulting Provider: Prashant Ortega Consult Reason/Comments: ?peritonitis from PD Do you want consulting provider notified?: Yes, Notify in am 03/31/24 14:36 Consult Physician Urgent Consulting Provider: Pavel Odom Consult Reason/Comments: permacath for hemodialysis Do you want consulting provider notified?: Yes Primary care physician: [facility] Course: Final diagnoses Peritonitis,O.P. fluid culture growing Chelsie parapsilosis, on Diflucan outpatient, removal of PD catheter pending. Status post placement of right femoral dialysis catheter, hemodialysis initiated. Acute on chronic respiratory failure secondary to fluid volume overload related to the above. Patient had been discharged on last admission with oxygen but states has not required it at home. Leukocytosis, mild, not sepsis, resolved Hypertension, uncontrolled on admission, resolved Chronic hyponatremia, maintained on oral sodium chloride. Generalized weakness and debility in a patient on hospice, currently transitioned off hospice at this time. End-stage renal dialysis on peritoneal dialysis. Diabetes mellitus II Diabetic ulcer, stage I, coccyx, present on admission Anemia of chronic kidney disease Chronic right foot wound, status post right second toe amputation, [facility] wound care. Moderate to severe aortic stenosis CAD, history of CABG Hyperlipidemia History of ESBL in peritoneal fluid COVID-19 infection 2020 PAD, history of popliteal bypass, history of right second toe amputation Osteoarthritis Restless leg syndrome Prior nicotine dependence Hospital course: This is a 78-year-old gentleman on hospice with past medical history significant for End-stage renal disease on peritoneal dialysis, CAD, PAD, popliteal bypass, right second toe amputation, chronic right foot open wound ,diabetes mellitus and multiple other medical issues recently transitioned to hospice on 02/10/2024. ER reports patient was sent in by Dr. Haro, terrazzo journeyman for removal of his peritoneal dialysis catheter with documentation reporting that is infected. Discussed with Dr. Haro, reporting patient developed peritonitis, treated with intraperitoneal antibiotics with recent cultures returning 2 days ago reporting Chelsie parapsilosis. At that time patient was started on oral Diflucan but continued to present with abdominal pain and elevated white count. Patient states he was having abdominal pain, nausea and vomiting, attributing it to eating too much at one setting versus eating frequent smaller meals. Diet intake worsened and he became weaker. Denies falls or trauma. Currently abdominal pain only with burping. Denies fevers, states always has chills. Reports his peritoneal dialysis return was clear not cloudy. Afebrile, WBC 12.5. hemoglobin 9.6, platelets 304, sodium 125, potassium 5, bicarb 25 BUN 82, creatinine 8.11, glucose 190, LFTs within normal limits, total protein 5, albumin 2.5. Received a dose of IV Zosyn .Currently on Eraxis as per infectious disease. Hypertensive on admission, blood pressure is now better controlled. N.p.o., scheduled for removal of PD catheter as per general surgery today. Permanent right femoral dialysis placed with hemodialysis initiated. Patient will be discharged home later today, in a stable condition with guarded prognosis, after hemodialysis, removal of PD catheter, pending final DC recommendations and clearance as per general surgery, nephrology and infectious disease. Outpatient hemodialysis arrangement as per case management. The impression and plan of care has been dictated as directed. : I performed a history and examination of this patient, discussed the same with the dictator. I agree with the dictator's note ,documented as a scribe. Any additional findings or plans will be noted. Patient Condition at Discharge: Stable Plan - Discharge Summary Discharge Rx Participant: No New Discharge Prescriptions: Continue Sodium Chloride Tab 1 gm PO DAILY Calcium Acetate [PhosLo] 667 mg PO TID-W/MEALS rOPINIRole HCL [Requip] 0.25 mg PO BID Lactulose [Cephulac] 30 gm PO BID PRN PRN Reason: Constipation Aspirin EC [Ecotrin Low Dose] 81 mg PO Q2D ondansetron HCL [Zofran] 8 mg PO Q8H PRN PRN Reason: Nausea amLODIPine 10 mg PO DAILY Changed carvediloL [Coreg] 12.5 mg PO TID #0 Insulin Glargine [Lantus Vial] 4 unit SQ DAILY #0 Discontinued HYDROmorphone [Dilaudid] 2 mg PO Q4H PRN PRN Reason: Pain No Action Fluconazole [Diflucan] See Taper PO DAILY Discharge Medication List Calcium Acetate [PhosLo] 667 mg PO TID-W/MEALS 09/02/21 [History] Lactulose [Cephulac] 30 gm PO BID PRN 07/23/23 [History] rOPINIRole HCL [Requip] 0.25 mg PO BID 07/23/23 [History] Aspirin EC [Ecotrin Low Dose] 81 mg PO Q2D 02/02/24 [History] ondansetron HCL [Zofran] 8 mg PO Q8H PRN 02/22/24 [History] Fluconazole [Diflucan] See Taper PO DAILY 03/31/24 [History] Sodium Chloride Tab 1 gm PO DAILY 03/31/24 [History] amLODIPine 10 mg PO DAILY 03/31/24 [History] Insulin Glargine [Lantus Vial] 4 unit SQ DAILY #0 04/03/24 [Rx] carvediloL [Coreg] 12.5 mg PO TID #0 04/03/24 [Rx] Follow up Appointment(s)/Referral(s): Jerry Jara Jr, [Primary Care Provider] - 3 Days Monse Haro MD [STAFF PHYSICIAN] - 1 Week Ambulatory/Diagnostic Orders: Complete Blood Count w/diff [LAB.AMB] Time Frame: 3 Days, Location: None Selected Activity/Diet/Wound Care/Special Instructions: Case management arranging outpatient Hemodialysis. 3-4L ny
[2024-04-03] MEDS: SODIUM CHLORIDE 0.9% 500 ML DEHP FREE BAG IV STA (13:21)
[2024-04-03] MEDS: IV FLUID CONTINUATION 500 ML IV ONE (13:24)
[2024-04-03] MEDS ORDERED: NEOSTIGMINE 1 MG/ML 10 ML VIAL ONE (13:34)
[2024-04-03] MEDS ORDERED: ROCURONIUM 10 MG/ML (5 ML VIAL) IV ONE (13:34)
[2024-04-03] MEDS ORDERED: ETOMIDATE 2 MG/ML 10 ML VIAL ONE (13:34)
[2024-04-03] MEDS ORDERED: GLYCOPYRROLATE 0.2 MG/ML 2 ML VIAL ONE (13:34)
[2024-04-03] MEDS ORDERED: ePHEDrine 50 MG/ML 1 ML VIAL ONE (13:34)
[2024-04-03] MEDS ORDERED: fentaNYL (PF) 50 MCG/ML 2 ML AMP ONE (13:34)
[2024-04-03] MEDS ORDERED: LIDOCAINE 1% INJ 10MG/ML (20 ML MDV) ONE (13:34)
[2024-04-03] MEDS ORDERED: ceFAZolin 1 GM/50 ML BAG (PMX) ONE (13:34)
[2024-04-03] MEDS: SODIUM CHLORIDE 0.9% 50 ML with ceFAZolin 2,000 MG IV ONE (13:39)
--- NOTE | 2024-04-03 14:28 | P.OP ---
Date of Procedure: 04/03/24 Preoperative Diagnosis: CAPD catheter infection Postoperative Diagnosis: CAPD catheter infection Procedure(s) Performed: removal of CAPD catheter Anesthesia: KRAIG Surgeon: Demarcus Lockhart Estimated Blood Loss (ml): 5 Pathology: other (CAPD catheter sent for culture) Condition: stable Disposition: PACU Description of Procedure: the patient's placed on the operating table in supine position. He received general endotracheal tube anesthesia. His abdomen was prepped and draped in usual sterile fashion. The CAPD catheter was located left lower quadrant. The catheter was palpated and tracked down towards the left lower quadrant. A skin incision was made over the area of the internal Velcro cuff. Then using blunt and sharp dissection with cautery the focal cuff was dissected free. This seemed the catheter was withdrawn for careful cavity. The tip was cut and sent for specimen. The CAPD catheter was then cut between 2 Velcro cuffs and then withdrawn. An 0 Vicryl sutures placed at the peritoneal site. The skin was closed interrupted 3-0 Monocryl suture. Sterile dressing applied. Patient top she will present to recovery in stable condition.
[2024-04-03] MEDS: DARBEPOETIN ALFA 40 MCG/0.4 ML SYRINGE SQ SCH (17:05)
[2024-04-03 17:31] LABS: Glucose,Whole Blood 142 mg/dL (70-110)
--- NOTE | 2024-04-03 17:41 | P.PN ---
Subjective Progress Note Date: 04/03/24 Principal diagnosis: Reason for follow-up is PD catheter associated peritonitis Patient is a 78-year-old male with a past medical history significant for diabetes mellitus hypertension coronary disease renal failure with on peritoneal dialysis apparently the patient did have a peritoneal dialysis culture positive for Chelsie x 2 in the outpatient setting failure to respond to the oral Diflucan has been admitted to hospital for removal of the dialysis catheter and initiation of hemodialysis, patient did have the right femoral dialysis catheter placement by vascular surgery on 03/31/2024. On today's evaluation that is 04/03/2024, the patient continues to be afebrile, the patient is on room air and breathing comfortably, the Pt denies having any chest pain or cough, the patient abdominal pain is currently controlled denies any nausea vomiting or diarrhea currently waiting for removal of the peritoneal dialysis catheter patient also have a wound to the right foot currently being treated with the Medihoney denies any worsening pain to the right foot wound. No new labs has been obtained today blood culture currently pending Objective - Vital Signs Vital signs: Vital Signs Temp 97.6 F 04/03/24 07:48 Pulse 58 L 04/03/24 07:48 Resp 18 04/03/24 07:48 BP 135/69 04/03/24 07:48 Pulse Ox 98 04/03/24 07:48 FiO2 Intake & Output 04/02/24 04/03/24 04/03/24 18:59 06:59 18:59 Intake Total 120 Balance 120 Intake: Oral 120 Other: Voiding Method Urinal Urinal # Voids 0 0 # Bowel Movements 1 - Exam GENERAL DESCRIPTION: An elderly male lying in bed in no distress RESPIRATORY SYSTEM: Unlabored breathing , decreased breath sounds at bases HEART: S1 S2 regular rate and rhythm , ABDOMEN: Soft , mild tenderness EXTREMITIES: No edema feet - Labs CBC & Chem 7: 04/02/24 09:58 04/02/24 09:58 Labs: Abnormal Lab Results - Last 24 Hours (Table) 04/02/24 04/02/24 04/03/24 Range/Units 17:36 20:29 08:45 POC Glucose (mg/dL) 183 H 147 H 171 H (70-110) mg/dL 04/03/24 Range/Units 12:15 POC Glucose (mg/dL) 168 H (70-110) mg/dL Microbiology - Last 24 Hours (Table) 03/30/24 21:04 Blood Culture - Preliminary Blood 03/30/24 21:04 Blood Culture - Preliminary Blood Assessment and Plan (1) Peritonitis associated with peritoneal dialysis Current Visit: Yes Status: Acute Code(s): T85.71XA - INFECT/INFLM REACTION DUE TO PERITON DIALYSIS CATHETER, INIT SNOMED Code(s): 131597877 Plan: Patient with PD catheter associated peritonitis with outpatient culture positive for Chelsie patient was found to oral Diflucan not being admitted to hospital for removal of the dialysis catheter 2-blood cultures currently pending white count has normalized, patient is currently waiting for removal of the infected catheter tip should be sent for the culture 3-patient to continue with Eraxis while inpatient and monitor clinical course closely Dictation was produced using [employer] dictation software. please excuse any grammatical, word or spelling errors. Time with Patient: Less than 30
[2024-04-03 20:31] LABS: Glucose,Whole Blood 114 mg/dL (70-110)
[2024-04-03 22:17] LABS: Glucose,Whole Blood 132 mg/dL (70-110)
[2024-04-04] MEDS: HYDROmorphone 1 MG/ML 1 ML SYRINGE IVP PRN (03:04)
[2024-04-04 07:38] LABS: Glucose,Whole Blood 150 mg/dL (70-110)
--- NOTE | 2024-04-04 11:58 | P.PN ---
Subjective Patient is seen in follow-up for end-stage renal disease. He is now maintained on hemodialysis via right femoral dialysis catheter. PD catheter removed April 03, 2024. No active complaints. Vital signs are stable. General: No acute distress. HEENT: Head exam is unremarkable. LUNGS: No audible rhonchi or wheezes. HEART: Rate and Rhythm are regular. ABDOMEN: Nontender. EXTREMITITES: 1+ edema. No drainage. Objective - Vital Signs Vital signs: Vital Signs Temp 97.7 F 04/04/24 07:36 Pulse 73 04/04/24 10:35 Resp 16 04/04/24 07:36 BP 124/54 04/04/24 10:35 Pulse Ox 92 L 04/04/24 10:35 FiO2 Intake & Output 04/03/24 04/04/24 04/04/24 18:59 06:59 18:59 Intake Total 150 400 Output Total 5 2400 Balance 145 -2000 Intake: IV 150 Hemodialysis 400 Output: Hemodialysis 2400 Estimated Blood Loss 5 Other: Voiding Method Urinal # Voids 0 - Labs CBC & Chem 7: 04/02/24 09:58 04/02/24 09:58 Labs: Abnormal Lab Results - Last 24 Hours (Table) 04/03/24 04/03/24 04/03/24 Range/Units 12:15 17:28 20:27 POC Glucose (mg/dL) 168 H 142 H 114 H (70-110) mg/dL 04/03/24 04/04/24 Range/Units 22:07 07:36 POC Glucose (mg/dL) 132 H 150 H (70-110) mg/dL Assessment and Plan Plan: Assessment: 1. End-stage renal disease maintained on hemodialysis. 2. 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 ID following. PD catheter removed April 03, 2024. 3. Hypertension with chronic kidney disease. Controlled. 4. Chronic kidney disease mineral bone disease maintained on PhosLo. 5. Diabetes mellitus. 6. Chronic hyponatremia maintained on sodium chloride tab. 7. Anemia of chronic kidney disease. On Aranesp. 8. Coronary artery disease status post CABG. 9. Peripheral vascular disease. Plan: Hemodialysis tomorrow. He will be maintained on Wednesday schedule outpatient. Outpatient hemodialysis to be set up by case management.
[2024-04-04 12:41] LABS: Glucose,Whole Blood 106 mg/dL (70-110)
--- NOTE | 2024-04-04 12:45 | P.PN ---
Subjective Progress Note Date: 04/04/24 CHIEF COMPLAINT: CAPD catheter infection HISTORY OF PRESENT ILLNESS: Patient is status post removal of CAPD catheter. He denies any pain. Tolerating diet. Denies any nausea or vomiting. The planning discharge to [facility] today. Afebrile. PHYSICAL EXAM: VITAL SIGNS: Reviewed. GENERAL: Well-developed in no acute distress. ABDOMEN: Soft. Nondistended. Nontender. Incisional dressing clean dry and int act NEUROLOGIC: Alert and oriented. Cranial nerves II through XII grossly intact. ASSESSMENT: 1. Peritonitis associated with peritoneal dialysis status post CAPD catheter removal PLAN: -Patient can be discharge from surgical standpoint -Patient to follow-up with Dr. Lockhart in 1 week Physician Pipe Cleaner note has been reviewed by physician. Signing provider agrees with the documented findings, assessment, and plan of care. Objective - Vital Signs Vital signs: Vital Signs Temp 97.7 F 04/04/24 07:36 Pulse 73 04/04/24 10:35 Resp 16 04/04/24 07:36 BP 124/54 04/04/24 10:35 Pulse Ox 92 L 04/04/24 10:35 FiO2 Intake & Output 04/03/24 04/04/24 04/04/24 18:59 06:59 18:59 Intake Total 150 400 Output Total 5 2400 Balance 145 -2000 Intake: IV 150 Hemodialysis 400 Output: Hemodialysis 2400 Estimated Blood Loss 5 Other: Voiding Method Urinal Urinal # Voids 0 - Labs CBC & Chem 7: 04/02/24 09:58 04/02/24 09:58 Labs: Abnormal Lab Results - Last 24 Hours (Table) 04/03/24 04/03/24 04/03/24 Range/Units 17:28 20:27 22:07 POC Glucose (mg/dL) 142 H 114 H 132 H (70-110) mg/dL 04/04/24 Range/Units 07:36 POC Glucose (mg/dL) 150 H (70-110) mg/dL
--- NOTE | 2024-04-04 15:38 | XR ---
EXAMINATION TYPE: XR chest 2V DATE OF EXAM: 04/04/2024 COMPARISON: 02/22/2024 HISTORY: Shortness of breath FINDINGS: Noted is pulmonary venous congestion with scattered infiltrates. There is also cardiomegaly and small effusions. IMPRESSION: Findings compatible with congestive failure. Infiltrates of other etiology are not excluded. Clinical correlation and progress studies are recommended.
[2024-04-04 17:20] LABS: Glucose,Whole Blood 106 mg/dL (70-110)
[2024-04-04 20:07] LABS: Glucose,Whole Blood 133 mg/dL (70-110)
[2024-04-05 07:30] LABS: Glucose,Whole Blood 191 mg/dL (70-110)
[2024-04-05 12:11] LABS: Glucose,Whole Blood 234 mg/dL (70-110)
--- NOTE | 2024-04-05 12:31 | P.PN ---
Subjective Patient is seen in follow-up for end-stage renal disease. He is now maintained on hemodialysis via right femoral dialysis catheter. PD catheter removed April 03, 2024. No active complaints. Vital signs are stable. General: No acute distress. HEENT: Head exam is unremarkable. LUNGS: No audible rhonchi or wheezes. HEART: Rate and Rhythm are regular. ABDOMEN: Nontender. EXTREMITITES: 1+ edema. No drainage. Objective - Vital Signs Vital signs: Vital Signs Temp 97.5 F L 04/05/24 07:25 Pulse 65 04/05/24 07:25 Resp 17 04/05/24 07:25 BP 149/50 04/05/24 07:25 Pulse Ox 100 04/05/24 07:25 FiO2 Intake & Output 04/04/24 04/05/24 04/05/24 18:59 06:59 18:59 Intake Total 100 Balance 100 Intake: Intake, IV Titration 100 Amount Anidulafungin 100 mg In 100 Sodium Chloride 0.9% 100 ml @ 84 mls/hr IVPB DAILY @0700 [facility] Rx#:[id number] Other: Voiding Method Urinal Urinal Urinal # Voids 0 - Labs CBC & Chem 7: 04/02/24 09:58 04/02/24 09:58 Labs: Abnormal Lab Results - Last 24 Hours (Table) 04/04/24 04/05/24 04/05/24 Range/Units 20:06 07:29 12:10 POC Glucose (mg/dL) 133 H 191 H 234 H (70-110) mg/dL Microbiology - Last 24 Hours (Table) 03/30/24 21:04 Blood Culture - Final Blood 03/30/24 21:04 Blood Culture - Final Blood 04/03/24 14:15 Catheter Tip Culture - Preliminary Catheter Tip Assessment and Plan Plan: Assessment: 1. End-stage renal disease maintained on hemodialysis. 2. 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 ID following. PD catheter removed April 03, 2024. 3. Hypertension with chronic kidney disease. Stable. 4. Chronic kidney disease mineral bone disease maintained on PhosLo. 5. Diabetes mellitus. 6. Chronic hyponatremia maintained on sodium chloride tab. 7. Anemia of chronic kidney disease. On Aranesp. 8. Coronary artery disease status post CABG. 9. Peripheral vascular disease. Plan: Hemodialysis today. He will be maintained on Wednesday schedule outpatient. Outpatient hemodialysis to be set up by case management. Awaits placement to rehab. Patient's family present at bedside.
[2024-04-05] MEDS: FLUCONAZOLE 100 MG TAB PO ONE (13:06)
--- NOTE | 2024-04-05 13:33 | P.PN ---
Subjective Progress Note Date: 04/05/24 CHIEF COMPLAINT: CAPD catheter infection HISTORY OF PRESENT ILLNESS: Patient is status post removal of CAPD catheter. He denies any pain. Tolerating diet. Denies any nausea or vomiting. The planning discharge to [facility] today. Awaiting insurance authorization. Afebrile. PHYSICAL EXAM: VITAL SIGNS: Reviewed. GENERAL: Well-developed in no acute distress. ABDOMEN: Soft. Nondistended. Nontender. Old peritoneal dialysis catheter site area clean dry and intact. NEUROLOGIC: Alert and oriented. Cranial nerves II through XII grossly intact. ASSESSMENT: 1. Peritonitis associated with peritoneal dialysis status post CAPD catheter removal PLAN: -Patient can be discharge from surgical standpoint -Patient to follow-up with Dr. Lockhart in 1 week -Nursing staff to change dressing Physician Conveyor Maintenance Mechanic note has been reviewed by physician. Signing provider agrees with the documented findings, assessment, and plan of care. Objective - Vital Signs Vital signs: Vital Signs Temp 97.3 F L 04/05/24 12:07 Pulse 72 04/05/24 12:07 Resp 17 04/05/24 12:07 BP 142/72 04/05/24 12:07 Pulse Ox 96 04/05/24 12:07 FiO2 Intake & Output 04/04/24 04/05/24 04/05/24 18:59 06:59 18:59 Intake Total 100 Balance 100 Intake: Intake, IV Titration 100 Amount Anidulafungin 100 mg In 100 Sodium Chloride 0.9% 100 ml @ 84 mls/hr IVPB DAILY @0700 [facility] Rx#:[id number] Other: Voiding Method Urinal Urinal Urinal # Voids 0 - Labs CBC & Chem 7: 04/02/24 09:58 04/02/24 09:58 Labs: Abnormal Lab Results - Last 24 Hours (Table) 04/04/24 04/05/24 04/05/24 Range/Units 20:06 07:29 12:10 POC Glucose (mg/dL) 133 H 191 H 234 H (70-110) mg/dL Microbiology - Last 24 Hours (Table) 03/30/24 21:04 Blood Culture - Final Blood 03/30/24 21:04 Blood Culture - Final Blood 04/03/24 14:15 Catheter Tip Culture - Preliminary Catheter Tip
[2024-04-05 13:54] LABS: African American GFR (CKD) 8 (>60 ml/min/1.73 sqM); Anion Gap 7 mmol/L; Blood Urea Nitrogen 60 mg/dL (9-20); Carbon Dioxide 25 mmol/L (22-30); Chloride 98 mmol/L (98-107); Glucose 201 mg/dL (74-99); Non-African American GFR(CKD) 7 (>60 ml/min/1.73 sqM); Potassium 4.9 mmol/L (3.5-5.1); Sodium 130 mmol/L (137-145)
[2024-04-05 17:29] LABS: Glucose,Whole Blood 149 mg/dL (70-110)
[2024-04-05 20:58] LABS: Glucose,Whole Blood 155 mg/dL (70-110)
[2024-04-06 01:24] LABS: Glucose,Whole Blood 167 mg/dL (70-110)
[2024-04-06 07:11] LABS: Glucose,Whole Blood 182 mg/dL (70-110)
--- NOTE | 2024-04-06 11:06 | P.PN ---
Subjective Patient is seen in follow-up for end-stage renal disease. He is now maintained on hemodialysis via right femoral dialysis catheter. PD catheter removed April 03, 2024. No active complaints. Vital signs are stable. General: No acute distress. HEENT: Head exam is unremarkable. LUNGS: No audible rhonchi or wheezes. HEART: Rate and Rhythm are regular. ABDOMEN: Nontender. EXTREMITITES: 1+ edema. No drainage. Objective - Vital Signs Vital signs: Vital Signs Temp 97.7 F 04/06/24 07:09 Pulse 67 04/06/24 07:09 Resp 16 04/06/24 07:09 BP 134/55 04/06/24 07:09 Pulse Ox 95 04/06/24 07:09 FiO2 Intake & Output 04/05/24 04/06/24 04/06/24 18:59 06:59 18:59 Intake Total 400 Output Total 2400 Balance -2000 Intake: Hemodialysis 400 Output: Hemodialysis 2400 Other: Voiding Method Urinal Urinal # Voids 0 0 # Bowel Movements 0 - Labs CBC & Chem 7: 04/02/24 09:58 04/05/24 13:21 Labs: Abnormal Lab Results - Last 24 Hours (Table) 04/05/24 04/05/24 04/05/24 Range/Units 12:10 13:21 17:27 Sodium 130 L (137-145) mmol/L BUN 60 H (9-20) mg/dL Creatinine 7.10 H* (0.66-1.25) mg/dL Glucose 201 H (74-99) mg/dL POC Glucose (mg/dL) 234 H 149 H (70-110) mg/dL Calcium 8.0 L (8.4-10.2) mg/dL 04/05/24 04/06/24 04/06/24 Range/Units 20:42 01:23 07:09 Sodium (137-145) mmol/L BUN (9-20) mg/dL Creatinine (0.66-1.25) mg/dL Glucose (74-99) mg/dL POC Glucose (mg/dL) 155 H 167 H 182 H (70-110) mg/dL Calcium (8.4-10.2) mg/dL Microbiology - Last 24 Hours (Table) 04/03/24 14:15 Catheter Tip Culture - Final Catheter Tip Assessment and Plan Plan: Assessment: 1. End-stage renal disease maintained on hemodialysis. 2. 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 ID following. PD catheter removed April 03, 2024. 3. Hypertension with chronic kidney disease. Stable. 4. Chronic kidney disease mineral bone disease maintained on PhosLo. 5. Diabetes mellitus. 6. Chronic hyponatremia maintained on sodium chloride tab. 7. Anemia of chronic kidney disease. On Aranesp. 8. Coronary artery disease status post CABG. 9. Peripheral vascular disease. Plan: Hemodialysis tomorrow. He will be maintained on Wednesday schedule outpatient. Outpatient hemodialysis to be set up by case management. Awaits placement to rehab.
[2024-04-06 12:39] LABS: Glucose,Whole Blood 210 mg/dL (70-110)
--- NOTE | 2024-04-06 13:09 | P.PN ---
Subjective Progress Note Date: 04/06/24 CHIEF COMPLAINT: CAPD catheter infection HISTORY OF PRESENT ILLNESS: Patient is status post removal of CAPD catheter. He denies any pain. Tolerating diet. Denies any nausea or vomiting. The planning discharge to [facility]. Awaiting insurance authorization. Afebrile. PHYSICAL EXAM: VITAL SIGNS: Reviewed. GENERAL: Well-developed in no acute distress. ABDOMEN: Soft. Nondistended. Nontender. Dressing clean dry and intact NEUROLOGIC: Alert and oriented. Cranial nerves II through XII grossly intact. ASSESSMENT: 1. Peritonitis associated with peritoneal dialysis status post CAPD catheter removal PLAN: -Patient can be discharge from surgical standpoint -Patient to follow-up with Dr. Lockhart in 1 week Physician Display Carver note has been reviewed by physician. Signing provider agrees with the documented findings, assessment, and plan of care. I have personally seen and examined the patient, reviewed the SOLE ASSESSOR /PAs history, exam and MDM and agree with the assessment and plan as written. Based on total visit time, I have performed more than 50% of the visit. As above: Patient doing well today. Denies pain. Incision is clean and dry. Will sign off. Please reconsult if needed. Objective - Vital Signs Vital signs: Vital Signs Temp 97.7 F 04/06/24 07:09 Pulse 67 04/06/24 07:09 Resp 16 04/06/24 07:09 BP 134/55 04/06/24 07:09 Pulse Ox 95 04/06/24 07:09 FiO2 Intake & Output 04/05/24 04/06/24 04/06/24 18:59 06:59 18:59 Intake Total 400 Output Total 2400 Balance -1999 Intake: Hemodialysis 400 Output: Hemodialysis 2400 Other: Voiding Method Urinal Urinal # Voids 0 0 # Bowel Movements 0 - Labs CBC & Chem 7: 04/02/24 09:58 04/05/24 13:21 Labs: Abnormal Lab Results - Last 24 Hours (Table) 04/05/24 04/05/24 04/05/24 Range/Units 13:21 17:27 20:42 Sodium 130 L (137-145) mmol/L BUN 60 H (9-20) mg/dL Creatinine 7.10 H* (0.66-1.25) mg/dL Glucose 201 H (74-99) mg/dL POC Glucose (mg/dL) 149 H 155 H (70-110) mg/dL Calcium 8.0 L (8.4-10.2) mg/dL 04/06/24 04/06/24 04/06/24 Range/Units 01:23 07:09 12:38 Sodium (137-145) mmol/L BUN (9-20) mg/dL Creatinine (0.66-1.25) mg/dL Glucose (74-99) mg/dL POC Glucose (mg/dL) 167 H 182 H 210 H (70-110) mg/dL Calcium (8.4-10.2) mg/dL Microbiology - Last 24 Hours (Table) 04/03/24 14:15 Catheter Tip Culture - Final Catheter Tip
[2024-04-06 15:10] VITALS: BMI 25.4
[2024-04-06] MEDS: LACTULOSE 20 GM/30 ML CUP PO PRN (16:11)
[2024-04-06 17:16] LABS: Glucose,Whole Blood 189 mg/dL (70-110)
--- NOTE | 2024-04-06 17:25 | P.PN ---
Subjective Progress Note Date: 04/05/24 Principal diagnosis: Reason for follow-up is PD catheter associated peritonitis Patient is a 78-year-old male with a past medical history significant for diabetes mellitus hypertension coronary disease renal failure with on peritoneal dialysis apparently the patient did have a peritoneal dialysis culture positive for Chelsie x 2 in the outpatient setting failure to respond to the oral Diflucan has been admitted to hospital for removal of the dialysis catheter and initiation of hemodialysis, patient did have the right femoral dialysis catheter placement by vascular surgery on 03/31/2024. On today's evaluation that is 04/05/2024, patient has been afebrile, patient is breathing comfortably and is currently on 4 L nasal cannula oxygen, patient denies having any significant cough no chest pain shortness of breath, patient denies nausea vomiting or diarrhea and no abdominal pain. Patient did have a creatinine of 7.10 no CBC was done today Objective - Vital Signs Vital signs: Vital Signs Temp 97.5 F L 04/05/24 07:25 Pulse 65 04/05/24 07:25 Resp 17 04/05/24 07:25 BP 149/50 04/05/24 07:25 Pulse Ox 100 04/05/24 07:25 FiO2 Intake & Output 04/04/24 04/05/24 04/05/24 18:59 06:59 18:59 Intake Total 100 Balance 100 Intake: Intake, IV Titration 100 Amount Anidulafungin 100 mg In 100 Sodium Chloride 0.9% 100 ml @ 84 mls/hr IVPB DAILY @0700 [facility] Rx#:[id number] Other: Voiding Method Urinal Urinal # Voids 0 - Exam GENERAL DESCRIPTION: An elderly male lying in bed in no distress RESPIRATORY SYSTEM: Unlabored breathing , decreased breath sounds at bases HEART: S1 S2 regular rate and rhythm , ABDOMEN: Soft , mild tenderness EXTREMITIES: No edema feet - Labs CBC & Chem 7: 04/02/24 09:58 04/05/24 13:21 Labs: Abnormal Lab Results - Last 24 Hours (Table) 04/04/24 04/05/24 Range/Units 20:06 07:29 POC Glucose (mg/dL) 133 H 191 H (70-110) mg/dL Microbiology - Last 24 Hours (Table) 03/30/24 21:04 Blood Culture - Final Blood 03/30/24 21:04 Blood Culture - Final Blood 04/03/24 14:15 Catheter Tip Culture - Preliminary Catheter Tip Assessment and Plan (1) Peritonitis associated with peritoneal dialysis Current Visit: Yes Status: Acute Code(s): T85.71XA - INFECT/INFLM REACTION DUE TO PERITON DIALYSIS CATHETER, INIT SNOMED Code(s): 201712915 Plan: Patient with PD catheter associated peritonitis with outpatient culture positive for Chelsie patient was found to oral Diflucan not being admitted to hospital for removal of the dialysis catheter 2-blood cultures currently pending white count has normalized, patient is status post removal of the infected catheter tip has been sent for the culture 3-patient possible transfer to the [facility] which cannot take the patient with Eraxis, prescription was provided the pillowcase folder yesterday patient is still waiting for insurance authorization will give him a dose of oral Diflucan 400 mg p.o. x 1 today Dictation was produced using [employer] dictation software. please excuse any grammatical, word or spelling errors. Time with Patient: Less than 30
--- NOTE | 2024-04-06 17:25 | P.PN ---
Subjective Progress Note Date: 04/04/24 Principal diagnosis: Reason for follow-up is PD catheter associated peritonitis Patient is a 78-year-old male with a past medical history significant for diabetes mellitus hypertension coronary disease renal failure with on peritoneal dialysis apparently the patient did have a peritoneal dialysis culture positive for Chelsie x 2 in the outpatient setting failure to respond to the oral Diflucan has been admitted to hospital for removal of the dialysis catheter and initiation of hemodialysis, patient did have the right femoral dialysis catheter placement by vascular surgery on 03/31/2024. On today's evaluation that is 04/04/2024, Patient is afebrile patient is cur rently on 4 L nasal cannula oxygen and denies having any shortness of breath, the patient denies any chest pain or cough, the patient denies any nausea vomiting abdominal pain has decreased intensity no diarrhea also have a chronic wound to the right foot denies any worsening pain to the right foot wound. No new lab has been obtained today Objective - Vital Signs Vital signs: Vital Signs Temp 97.7 F 04/04/24 12:43 Pulse 71 04/04/24 12:43 Resp 16 04/04/24 12:43 BP 138/72 04/04/24 12:43 Pulse Ox 96 04/04/24 12:43 FiO2 Intake & Output 04/03/24 04/04/24 04/04/24 18:59 06:59 18:59 Intake Total 150 400 Output Total 5 2400 Balance 145 -2000 Intake: IV 150 Hemodialysis 400 Output: Hemodialysis 2400 Estimated Blood Loss 5 Other: Voiding Method Urinal Urinal # Voids 0 - Exam GENERAL DESCRIPTION: An elderly male lying in bed in no distress RESPIRATORY SYSTEM: Unlabored breathing , decreased breath sounds at bases HEART: S1 S2 regular rate and rhythm , ABDOMEN: Soft , mild tenderness EXTREMITIES: No edema feet - Labs CBC & Chem 7: 04/02/24 09:58 04/05/24 13:21 Labs: Abnormal Lab Results - Last 24 Hours (Table) 04/03/24 04/03/24 04/03/24 Range/Units 17:28 20:27 22:07 POC Glucose (mg/dL) 142 H 114 H 132 H (70-110) mg/dL 04/04/24 Range/Units 07:36 POC Glucose (mg/dL) 150 H (70-110) mg/dL Assessment and Plan (1) Peritonitis associated with peritoneal dialysis Current Visit: Yes Status: Acute Code(s): T85.71XA - INFECT/INFLM REACTION DUE TO PERITON DIALYSIS CATHETER, INIT SNOMED Code(s): 055672438 Plan: Patient with PD catheter associated peritonitis with outpatient culture positive for Chelsie patient was found to oral Diflucan not being admitted to hospital for removal of the dialysis catheter 2-blood cultures currently pending white count has normalized, patient is status post removal of the infected catheter tip has been sent for the culture 3-patient possible transfer to the [facility] which cannot take the patient with Eraxis we will switch him over to Diflucan 400 mg p.o. each dialysis for 3 weeks prescription provided to the lead case manager Dictation was produced using [employer] dictation software. please excuse any grammatical, word or spelling errors. Time with Patient: Less than 30
--- NOTE | 2024-04-06 17:26 | P.PN ---
Subjective Progress Note Date: 04/06/24 Principal diagnosis: Reason for follow-up is PD catheter associated peritonitis Patient is a 78-year-old male with a past medical history significant for diabetes mellitus hypertension coronary disease renal failure with on peritoneal dialysis apparently the patient did have a peritoneal dialysis culture positive for Chelsie x 2 in the outpatient setting failure to respond to the oral Diflucan has been admitted to hospital for removal of the dialysis catheter and initiation of hemodialysis, patient did have the right femoral dialysis catheter placement by vascular surgery on 03/31/2024. On today's evaluation that is 04/06/2024, Patient is afebrile this morning and denies any chills, patient mention breathing comfortably and is currently on 4 L nasal oxygen, patient denies any chest pain occasional cough patient denies any abdominal pain no diarrhea no nausea no vomiting No new labs were obtained today Objective - Vital Signs Vital signs: Vital Signs Temp 97.7 F 04/06/24 07:09 Pulse 67 04/06/24 07:09 Resp 16 04/06/24 07:09 BP 134/55 04/06/24 07:09 Pulse Ox 95 04/06/24 07:09 FiO2 Intake & Output 04/05/24 04/06/24 04/06/24 18:59 06:59 18:59 Intake Total 400 Output Total 2400 Balance -1999 Intake: Hemodialysis 400 Output: Hemodialysis 2400 Other: Voiding Method Urinal Urinal # Voids 0 0 # Bowel Movements 0 - Exam GENERAL DESCRIPTION: An elderly male lying in bed in no distress RESPIRATORY SYSTEM: Unlabored breathing , decreased breath sounds at bases HEART: S1 S2 regular rate and rhythm , ABDOMEN: Soft , mild tenderness EXTREMITIES: No edema feet - Labs CBC & Chem 7: 04/02/24 09:58 04/05/24 13:21 Labs: Abnormal Lab Results - Last 24 Hours (Table) 04/05/24 04/05/24 04/05/24 Range/Units 12:10 13:21 17:27 Sodium 130 L (137-145) mmol/L BUN 60 H (9-20) mg/dL Creatinine 7.10 H* (0.66-1.25) mg/dL Glucose 201 H (74-99) mg/dL POC Glucose (mg/dL) 234 H 149 H (70-110) mg/dL Calcium 8.0 L (8.4-10.2) mg/dL 04/05/24 04/06/24 04/06/24 Range/Units 20:42 01:23 07:09 Sodium (137-145) mmol/L BUN (9-20) mg/dL Creatinine (0.66-1.25) mg/dL Glucose (74-99) mg/dL POC Glucose (mg/dL) 155 H 167 H 182 H (70-110) mg/dL Calcium (8.4-10.2) mg/dL Microbiology - Last 24 Hours (Table) 04/03/24 14:15 Catheter Tip Culture - Final Catheter Tip Assessment and Plan (1) Peritonitis associated with peritoneal dialysis Current Visit: Yes Status: Acute Code(s): T85.71XA - INFECT/INFLM REACTION DUE TO PERITON DIALYSIS CATHETER, INIT SNOMED Code(s): 752740999 Plan: Patient with PD catheter associated peritonitis with outpatient culture positive for Chelsie patient was found to oral Diflucan not being admitted to hospital for removal of the dialysis catheter 2-blood cultures currently pending white count has normalized, patient is status post removal of the infected catheter tip has been sent for the culture 3-patient currently waiting for insurance authorization to go to the shelter plan is for oral Diflucan 400 milligrams postdialysis to finish a 3-week course of therapy Dictation was produced using [employer] dictation software. please excuse any grammatical, word or spelling errors. Time with Patient: Less than 30
[2024-04-06 20:33] LABS: Glucose,Whole Blood 192 mg/dL (70-110)
[2024-04-07 07:34] LABS: Glucose,Whole Blood 174 mg/dL (70-110)
--- NOTE | 2024-04-07 12:25 | P.PN ---
Subjective Patient is seen in follow-up for end-stage renal disease. He is now maintained on hemodialysis via right femoral dialysis catheter. PD catheter removed April 03, 2024. No active complaints. Tolerating dialysis well. Vital signs are stable. General: No acute distress. HEENT: Head exam is unremarkable. LUNGS: No audible rhonchi or wheezes. HEART: Rate and Rhythm are regular. ABDOMEN: Nontender. EXTREMITITES: 1+ edema. No drainage. Objective - Vital Signs Vital signs: Vital Signs Temp 97.6 F 04/07/24 07:59 Pulse 69 04/07/24 07:59 Resp 17 04/07/24 07:59 BP 132/54 04/07/24 07:59 Pulse Ox 96 04/07/24 07:59 FiO2 Intake & Output 04/06/24 04/07/24 04/07/24 18:59 06:59 18:59 Intake Total 600 590 Balance 600 590 Weight 71.668 kg Intake: Intake, IV Titration 600 Amount Sodium Chloride 0.9% 50 600 ml @ 0 mls/hr IV .STK-MED ONE with ceFAZolin 2,000 mg Rx#:[id number] Oral 590 Other: Voiding Method Urinal Urinal Urinal # Voids 2 # Bowel Movements 1 - Labs CBC & Chem 7: 04/02/24 09:58 04/05/24 13:21 Labs: Abnormal Lab Results - Last 24 Hours (Table) 04/06/24 04/06/24 04/06/24 Range/Units 12:38 17:14 20:32 POC Glucose (mg/dL) 210 H 189 H 192 H (70-110) mg/dL 04/07/24 Range/Units 07:32 POC Glucose (mg/dL) 174 H (70-110) mg/dL Assessment and Plan Plan: Assessment: 1. End-stage renal disease maintained on hemodialysis. 2. 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 ID following. PD catheter removed April 03, 2024. 3. Hypertension with chronic kidney disease. Stable. 4. Chronic kidney disease mineral bone disease maintained on PhosLo. 5. Diabetes mellitus. 6. Chronic hyponatremia maintained on sodium chloride tab. 7. Anemia of chronic kidney disease. On Aranesp. 8. Coronary artery disease status post CABG. 9. Peripheral vascular disease. Plan: Currently seen while undergoing hemodialysis. He will be maintained on Wednesday schedule outpatient. Awaits placement to rehab.
[2024-04-07 12:44] LABS: Glucose,Whole Blood 139 mg/dL (70-110)
[2024-04-07] MEDS: FLUCONAZOLE 100 MG TAB PO ONE (13:30)
[2024-04-07 13:38] VITALS: BP 165/62; PULSE 76; RESP 17; TEMP 97.8
--- NOTE | 2024-04-07 17:51 | P.PN ---
Subjective Progress Note Date: 04/07/24 Principal diagnosis: Reason for follow-up is PD catheter associated peritonitis Patient is a 78-year-old male with a past medical history significant for diabetes mellitus hypertension coronary disease renal failure with on peritoneal dialysis apparently the patient did have a peritoneal dialysis culture positive for Chelsie x 2 in the outpatient setting failure to respond to the oral Diflucan has been admitted to hospital for removal of the dialysis catheter and initiation of hemodialysis, patient did have the right femoral dialysis catheter placement by vascular surgery on 03/31/2024. On today's evaluation that is 04/07/2024,the patient denies any fever or any chills, patient is breathing comfortably on 4 L current oxygen, the patient denies chest pain shortness of breath and no significant cough, patient denies abdominal pain, no nausea vomiting or diarrhea. Patient completed his dialysis this morning. No new labs has been repeated today Objective - Vital Signs Vital signs: Vital Signs Temp 97.8 F 04/07/24 13:38 Pulse 76 04/07/24 13:38 Resp 17 04/07/24 13:38 BP 165/62 04/07/24 13:38 Pulse Ox 95 04/07/24 13:38 FiO2 Intake & Output 04/06/24 04/07/24 04/07/24 18:59 06:59 18:59 Intake Total 600 590 500 Output Total 2500 Balance 600 590 -2000 Weight 71.668 kg Intake: Intake, IV Titration 600 Amount Sodium Chloride 0.9% 50 600 ml @ 0 mls/hr IV .STK-MED ONE with ceFAZolin 2,000 mg Rx#:[id number] Oral 590 Hemodialysis 500 Output: Hemodialysis 2500 Other: Voiding Method Urinal Urinal Urinal # Voids 2 # Bowel Movements 1 - Exam GENERAL DESCRIPTION: An elderly male lying in bed in no distress RESPIRATORY SYSTEM: Unlabored breathing , decreased breath sounds at bases HEART: S1 S2 regular rate and rhythm , ABDOMEN: Soft , mild tenderness EXTREMITIES: No edema feet - Labs CBC & Chem 7: 04/02/24 09:58 04/05/24 13:21 Labs: Abnormal Lab Results - Last 24 Hours (Table) 04/06/24 04/06/24 04/07/24 Range/Units 17:14 20:32 07:32 POC Glucose (mg/dL) 189 H 192 H 174 H (70-110) mg/dL 04/07/24 Range/Units 12:40 POC Glucose (mg/dL) 139 H (70-110) mg/dL Assessment and Plan (1) Peritonitis associated with peritoneal dialysis Status: Acute Code(s): T85.71XA - INFECT/INFLM REACTION DUE TO PERITON DIALYSIS CATHETER, INIT SNOMED Code(s): 139102697 Plan: Patient with PD catheter associated peritonitis with outpatient culture positive for Chelsie patient was found to oral Diflucan not being admitted to hospital for removal of the dialysis catheter 2-blood cultures currently pending white count has normalized, patient is status post removal of the infected catheter tip has been sent for the culture 3-patient did have his dialysis completed this morning we will give him a dose of oral Diflucan 400 milligrams postdialysis and plan to continue with the same dose to finish a 3-week course of therapy Dictation was produced using [employer] dictation software. please excuse any grammatical, word or spelling errors. Time with Patient: Less than 30
== END 2024-04-07 15:05 | DRG 907 ==
LOC: EC 20:16 → 5NMEDONC 03-31 04:30
PROVIDERS: ADMIT Family Medicine; ATTEND Family Medicine
PROC: 06HM33Z Insertion of Infusion Device into Right Femoral Vein, Percutaneous Approach (ICD-10-PCS; 2024-03-31)
PROC: 02HV33Z Insertion of Infusion Device into Superior Vena Cava, Percutaneous Approach (ICD-10-PCS; 2024-03-31)
PROC: B5181ZA Fluoroscopy of Superior Vena Cava using Low Osmolar Contrast, Guidance (ICD-10-PCS; 2024-03-31)
PROC: B548ZZA Ultrasonography of Superior Vena Cava, Guidance (ICD-10-PCS; 2024-03-31)
PROC: 0JHL3XZ Insertion of Tunneled Vascular Access Device into Right Upper Leg Subcutaneous Tissue and Fascia, Percutaneous Approach (ICD-10-PCS; 2024-03-31 15:00)
PROC: 0WPG03Z Removal of Infusion Device from Peritoneal Cavity, Open Approach (ICD-10-PCS; 2024-04-03)
PROC: 5A1D70Z Performance of Urinary Filtration, Intermittent, Less than 6 Hours Per Day (ICD-10-PCS; principal; 2024-04-06)
DX: T85.71XA Infection and inflammatory reaction due to peritoneal dialysis catheter, initial encounter (principal); K65.8 Other peritonitis; N18.6 End stage renal disease; E87.1 Hypo-osmolality and hyponatremia; I12.0 Hypertensive chronic kidney disease with stage 5 chronic kidney disease or end stage renal disease; L97.518 Non-pressure chronic ulcer of other part of right foot with other specified severity; T80.29XA Infection following other infusion, transfusion and therapeutic injection, initial encounter; Z51.5 Encounter for palliative care; Y84.8 Other medical procedures as the cause of abnormal reaction of the patient, or of later complication, without mention of misadventure at the time of the procedure; G25.81 Restless legs syndrome; E11.51 Type 2 diabetes mellitus with diabetic peripheral angiopathy without gangrene; D53.1 Other megaloblastic anemias, not elsewhere classified; E87.70 Fluid overload, unspecified; Z99.2 Dependence on renal dialysis; Y83.8 Other surgical procedures as the cause of abnormal reaction of the patient, or of later complication, without mention of misadventure at the time of the procedure; D63.1 Anemia in chronic kidney disease; E11.22 Type 2 diabetes mellitus with diabetic chronic kidney disease; Z87.19 Personal history of other diseases of the digestive system; E11.621 Type 2 diabetes mellitus with foot ulcer; E78.5 Hyperlipidemia, unspecified; I25.10 Atherosclerotic heart disease of native coronary artery without angina pectoris; F41.9 Anxiety disorder, unspecified; M89.8X9 Other specified disorders of bone, unspecified site; Y84.1 Kidney dialysis as the cause of abnormal reaction of the patient, or of later complication, without mention of misadventure at the time of the procedure; Z86.16 Personal history of COVID-19; Z79.899 Other long term (current) drug therapy; Z86.19 Personal history of other infectious and parasitic diseases; Z89.421 Acquired absence of other right toe(s); Z95.1 Presence of aortocoronary bypass graft; Z79.4 Long term (current) use of insulin; Z96.1 Presence of intraocular lens; Z98.41 Cataract extraction status, right eye; Z98.42 Cataract extraction status, left eye; Z88.5 Allergy status to narcotic agent; Z91.040 Latex allergy status; Z88.8 Allergy status to other drugs, medicaments and biological substances
CPT/HCPCS: 36415; 36558; 71046; 76937; 77001; 80048; 80053; 83036; 83605; 85025; 86706; 87040; 87070; 87075; 87340; 90935

== ENCOUNTER 2024-04-08 02:15 | Emergency (ER) | payer MEDICARE ==
[2024-04-08 02:23] VITALS: RESP 22
--- NOTE | 2024-04-08 03:37 | ED ---
Recheck HPI - General Chief Complaint: Recheck/Abnormal Lab/Rx Stated Complaint: RECHECK Time Seen by Provider: 04/08/24 03:19 Source: patient, EMS, RN notes reviewed, old records reviewed Mode of arrival: EMS Limitations: no limitations - History of Present Illness Initial Comments: This is a 79-year-old male to the ER for evaluation today. Patient presents today for evaluation regards to wound reevaluation with peritoneal fluid leaking into clothing -: days(s) Returns Today for: persistent/worsening pain related to initial visit Associated Symptoms: none Treatments Prior to Arrival: other (0) - Related Data Home Medications Medication Instructions Recorded Confirmed Calcium Acetate [PhosLo] 667 mg PO TID-W/MEALS 09/02/21 03/31/24 Lactulose [Cephulac] 30 gm PO BID PRN 07/23/23 03/31/24 rOPINIRole HCL [Requip] 0.25 mg PO BID 07/23/23 03/31/24 Aspirin EC [Ecotrin Low Dose] 81 mg PO Q2D 02/02/24 03/31/24 ondansetron HCL [Zofran] 8 mg PO Q8H PRN 02/22/24 03/31/24 Sodium Chloride Tab 1 gm PO DAILY 03/31/24 03/31/24 amLODIPine 10 mg PO DAILY 03/31/24 03/31/24 Previous Rx's Medication Instructions Recorded Insulin Glargine [Lantus Vial] 4 unit SQ DAILY #0 04/03/24 carvediloL [Coreg] 12.5 mg PO TID #0 04/03/24 Acetaminophen Tab [Tylenol] 650 mg PO Q6H PRN #30 tab 04/04/24 Fluconazole [Diflucan] 400 mg PO DIRECTED #18 tablet 04/04/24 Allergies Allergy/AdvReac Type Severity Reaction Status Date / Time latex Allergy Swelling, Verified 04/08/24 02:23 SKIN TURNED RED,BURNING, ITCHING hydrocodone [From Branch] AdvReac Hallucinati Verified 04/08/24 02:23 ons/Vomitin g losartan AdvReac Cough Verified 04/08/24 02:23 Review of Systems ROS Statement: Those systems with pertinent positive or pertinent negative responses have been documented in the HPI. ROS Other: All systems not noted in ROS Statement are negative. 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, LEFT TOTAL HIP, BILATERAL CATARACT SURGERY WITH LENS IMPLANT Past Anesthesia/Blood Transfusion Reactions: No Reported Reaction Additional Past Anesthesia/Blood Transfusion Reaction / Comment(s): Pt reports having hallucinations one time with anesthesia Past Psychological History: Anxiety Smoking Status: Former smoker Past Alcohol Use History: None Reported Past Drug Use History: None Reported - Past Family History Mother Family Medical History: Cancer Additional Family Medical History / Comment(s): Heart disease Father History Unknown: Yes General Exam Limitations: no limitations General appearance: alert, in no apparent distress Head exam: Present: atraumatic, normocephalic, normal inspection Eye exam: Present: normal appearance, PERRL, EOMI. Absent: scleral icterus, conjunctival injection, periorbital swelling ENT exam: Present: normal exam, mucous membranes moist Neck exam: Present: normal inspection. Absent: tenderness, meningismus, lymphadenopathy Respiratory exam: Present: normal lung sounds bilaterally. Absent: respiratory distress, wheezes, rales, rhonchi, stridor Cardiovascular Exam: Present: regular rate, normal rhythm, normal heart sounds. Absent: systolic murmur, diastolic murmur, rubs, gallop, clicks GI/Abdominal exam: Present: soft, normal bowel sounds. Absent: distended, tenderness, guarding, rebound, rigid Extremities exam: Present: normal inspection, full ROM, normal capillary refill. Absent: tenderness, pedal edema, joint swelling, calf tenderness Back exam: Present: normal inspection Neurological exam: Present: alert, oriented X3, CN II-XII intact Psychiatric exam: Present: normal affect, normal mood Skin exam: Present: warm, dry, intact, normal color. Absent: rash Course Vital Signs 04/08/24 04/08/24 02:16 05:40 Temperature 97.5 F L 97.6 F Pulse Rate 74 71 Respiratory 22 22 Rate Blood Pressure 131/57 130/62 O2 Sat by Pulse 95 95 Oximetry - Reevaluation(s) Reevaluation #1: 04/08/24 04:33 Records reviewed Reevaluation #2: 04/08/24 04:33 Patient has no significant leaking from abdominal incisions currently Reevaluation #3: 04/08/24 04:34 Patient informed of results and questions answered Reevaluation #4: Was pt. sent in by a medical professional or institution (ALVAREZ Paiz, BEHAVIORAL ASSISTANT, urgent care, hospital, or long-term...) When possible be specific @ -no Did you speak to anyone other than the patient for history (EMS, parent, family, police, friend...)? What history was obtained from this source @ -no Did you review nursing and triage notes (agree or disagree)? Why? @ -agree Are old charts reviewed (outside hosp., previous admission, EMS record, old EKG, old radiological studies, urgent care reports/EKG's, long-term records)? Report findings @ -yes Differential Diagnosis (chest pain, altered mental status, abdominal pain women, abdominal pain men, vaginal bleeding, weakness, fever, dyspnea, syncope, headache, dizziness, GI bleed, back pain, seizure, CVA, palpatations, mental health, musculoskeletal)? @ -prior EKG interpreted by me (3pts min.). @ -no X-rays interpreted by me (1pt min.). @ -no CT interpreted by me (1pt min.). @ -no U/S interpreted by me (1pt. min.). @ -no What testing was considered but not performed or refused? (CT, X-rays, U/S, labs)? Why? @ -none What meds were considered but not given or refused? Why? @ -none Did you discuss the management of the patient with other professionals (professionals i.e. ALVAREZ Paiz, BEHAVIORAL ASSISTANT, lab, RT, psych nurse, social services designee, christmas bell ringer, teacher, parcel post officer, director of casework department)? Give summary @ -Spoke with on-call surgery who states no need to do any further treatment Was smoking cessation discussed for >3mins.? @ -no Was critical care preformed (if so, how long)? @ -no Were there social determinants of health that impacted care today? How? (Homele ssness, low income, unemployed, alcoholism, drug addiction, transportation, low edu. Level, literacy, decrease access to med. care, assisted, rehab)? @ -none Was there de-escalation of care discussed even if they declined (Discuss DNR or withdrawal of care, Hospice)? DNR status @ -no What co-morbidities impacted this encounter? (DM, HTN, Smoking, COPD, CAD, Cancer, CVA, ARF, Chemo, Hep., AIDS, mental health diagnosis, sleep apnea, morbid obesity)? @ -none Was patient admitted / discharged? Hospital course, mention meds given and route, prescriptions, significant lab abnormalities, going to OR and other pertinent info. @ - 79 male the ER today. Patient presents today for evaluation of wound recheck patient is covered in peritoneal or ascitic fluid. Patient recently had peritoneal catheter removed but can be transfewed back to facility Discharge Undiagnosed new problem with uncertain prognosis? @ -no Drug Therapy requiring intensive monitoring for toxicity (Heparin, Nitro, Insulin, Cardizem)? @ -no Were any procedures done? @ -no Diagnosis/symptom? @ -Wound reevaluation, postoperative Acute, or Chronic, or Acute on Chronic? @ -Acute Uncomplicated (without systemic symptoms) or Complicated (systemic symptoms)? @ -Complicated Side effects of treatment? @ -no Exacerbation, Progression, or Severe Exacerbation? @ -exacerbation Poses a threat to life or bodily function? How? (Chest pain, [place], [place], pneumonia, PE, COPD, DKA, ARF, appy, cholecystitis, CVA, Diverticulitis, Homicidal, Suicidal, threat to staff... and all critical care pts) @ -yes extremes of age - Consultations Consultation #1: sPoke with on-call general surgery who performed patient's procedure patient has no acute findings here in the ER and can be discharged home no treatment for "ascitic fluid leakage Medical Decision Making - Medical Decision Making 79 male the ER today. Patient presents today for evaluation of wound recheck patient is covered in peritoneal or ascitic fluid. Patient recently had peritoneal catheter removed but can be transfewed back to facility Disposition Clinical Impression: Encounter for wound re-check Disposition: HOME SELF-CARE Condition: Good Instructions (If sedation given, give patient instructions): Acute Wound Care (ED), Chronic Wound Care (ED) Is patient prescribed a controlled substance at d/c from ED?: No Referrals: Olena Awad, [Primary Care Provider] - 1-2 days
[2024-04-08] MEDS: HYDROmorphone 1 MG/ML 1 ML SYRINGE IM STA (04:59)
[2024-04-08 05:42] VITALS: BP 130/62; PULSE 71; TEMP 97.6
== END 2024-04-08 05:40 | disposition home or self-care (01) ==
LOC: EC 02:15
DX: Z48.00 Encounter for change or removal of nonsurgical wound dressing (principal); Z87.891 Personal history of nicotine dependence; Z88.5 Allergy status to narcotic agent; Z91.040 Latex allergy status; Z88.8 Allergy status to other drugs, medicaments and biological substances; Z95.1 Presence of aortocoronary bypass graft; Z99.2 Dependence on renal dialysis
CPT/HCPCS: 99284; 96372; J1170